=== PATIENT | female | born 1995 | race Caucasian/White ===

== ENCOUNTER 2018-01-18 03:01 | Inpatient (IN) | payer BC, OTHER ==
[~2018-01-18] VITALS: Ht 160 cm; Wt 63.5 kg
--- OUTSIDE RECORDS SUMMARY | 2018-01-18 03:10 | XMS REPORT ---
Author Author [facility] Medical Staff Organization [facility] Address [address] [place], [place] [address] Phone [phone] Summary purpose TRANSITION OF CARE AUTO GENERATION Chief Complaint and Reason for Visit No authorized Reason for Visit (Admitting Diagnosis) is available for this visit. Problem list No authorized problems tracked for continuity of care are available for this visit. Encounters No authorized problems tracked for encounter diagnoses are available for this visit. Medications No medications recorded for this patient visit Allergies, adverse reactions, alerts No allergy information is available for this patient. Immunizations No immunizations recorded for this patient visit Relevant diagnostic tests and/or laboratory data RESULTS Thyroid Testing [id number]:00 Result Normal Range Units TSH L 0.11 0.52-4.13 uIU/mL Free T4 1.15 0.78-1.34 ng/dl History of procedures No procedures recorded for this patient visit. Functional status No functional or cognitive status observations are available for this visit. Vital signs No authorized vital signs are available for this visit. Social history No Social History or smoking status observations were recorded for this visit. ( Unknown if ever smoked.) Treatment Plan No treatment plan text is available for this visit. Hospital discharge instructions No discharge instruction text is available for this visit.
--- OUTSIDE RECORDS SUMMARY | 2018-01-18 03:10 | XMS REPORT ---
Author Author [facility] Medical Staff Organization [facility] Address [address] [place], [place] [address] Phone [phone] Care Team Providers Care Sky Diver Name Role Phone TAMARA SPENCER, KATIE PP [phone] Summary purpose TRANSITION OF CARE AUTO GENERATION [...] this patient visit Allergies, adverse reactions, alerts Allergen Category Ingredient Status Reaction Severity Onset No known drug allergies No known drug allergies No known drug allergies Confirmed or Verified Immunizations No immunizations recorded for this patient visit Relevant diagnostic tests and/or laboratory data RESULTS Thyroid Testing [id number]:37:00 Result Normal Range Units TSH 3.70 0.52-4.13 uIU/mL Free T4 0.88 0.78-1.34 ng/dl History of procedures No procedures [...]
--- OUTSIDE RECORDS SUMMARY | 2018-01-18 03:10 | XMS REPORT ---
Author Author [facility] Organization [facility] Address [address] [place] [address] Phone [phone] Care Team Providers Care Escrow Agent Name Role Phone TAMARA SPENCER, KATIE PP [phone] Summary purpose TRANSITION OF CARE AUTO GENERATION Chief Complaint and Reason for Visit Admit Diagnosis 1 MALIGN NEOPL THYROID Problem list No authorized problems tracked for [...] tests and/or laboratory data RESULTS Thyroid Testing [id number]:37:00 Result Normal Range Units TSH 3.70 0.52-4.13 uIU/mL Free T4 0.88 0.78-1.34 ng/dl History of procedures Procedure Code Code Type Description Date Performed Performing Physician 36577 CPT-4 ASSAY OF FREE THYROXINE 10-23-2014 ALIS MONTIEL 38023 CPT-4 ASSAY THYROID STIM HORMONE 10-23-2014 ALIS MONTIEL Functional status No functional or cognitive status [...]
--- OUTSIDE RECORDS SUMMARY | 2018-01-18 03:11 | XMS REPORT | Clinical Summary ---
Author Author Admin, WILBERT Organization [employer] Address Unknown Phone Unavailable Allergies, Adverse Reactions, Alerts Allergy Name Reaction Description Start Date Severity Status Provider NKDA Critical No Longer Active Tamera Mustafa MD PhD NKDA Critical Inactive Nehal Elder Conditions or Problems Problem Name Problem Code Onset Date Status Entry Date Provider Comment Standard Description Annotate FAMILY HISTORY OF DEPRESSION V17.0 Active Sera Mcdowell MD Family history of psychiatric condition FAMILY HISTORY OF LUNG CANCER V16.1 Active Sera Mcdowell MD Family history of malignant neoplasm of trachea, bronchus, and lung CARDIAC ARRHYTHMIA, INTERMITTENT 427.9 Resolved Sera Mcdowell MD Cardiac dysrhythmia, unspecified DYSURIA 788.1 Inactive Sera Mcdowell MD Dysuria CONSTIPATION UNSP. 564.00 Resolved Sera Mcdowell MD Constipation, unspecified ACNE 706.1 Active Sera Mcdowell MD Other acne PHARYNGITIS ACUTE 462 Inactive Sera Mcdowell MD Acute pharyngitis FAMILY HISTORY OF ALCOHOLISM V61.41 Active Tamera Mustafa MD PhD Alcoholism in family FH BREAST CANCER V16.3 Active Tamera Mustafa MD PhD Family history of malignant neoplasm of breast FH DIABETES V18.0 Active Tamera Mustafa MD PhD Family history of diabetes mellitus MIGRAINE, COMMON W/O INTRACTABLE MIGRAINE 346.10 Active Tamera Mustafa MD PhD Migraine without aura, without mention of intractable migraine, without mention of status migrainosus ACNE 706.1 Active Tamera Mustafa MD PhD Other acne THYROMEGALY 240.9 Resolved Tamera Mustafa MD PhD Goiter, unspecified right HEALTH SCREENING V70.0 Active Tamera Mustafa MD PhD Routine general medical examination at a health care facility HYPOTHYROIDISM 244.9 Active Tamera Mustafa MD PhD Unspecified hypothyroidism SCABIES 133.0 Resolved Tor Gramajo MD Scabies PHARYNGITIS 462 Resolved Tamera Mustafa MD PhD Acute pharyngitis Tonsillitis, acute 463 Resolved Tamera Mustafa MD PhD Acute tonsillitis UTI 599.0 Resolved Tamera Mustafa MD PhD Urinary tract infection, site not specified Abdominal pain, generalized 789.07 Active Jr Morrow MD Abdominal pain, generalized CONTRACEPTIVE MANAGEMENT V25.09 Active Alli Frye MD Encounter for other general counseling and advice on contraceptive management Hematuria 599.70 Active Tatyana Lam Hematuria, unspecified ANXIETY 300.00 Active Alli Frye MD Anxiety state, unspecified Preventative health care V70.0 Active Alli Frye MD Routine general medical examination at a health care facility GERD 530.81 Active Alli Frye MD Esophageal reflux Insomnia 780.52 Active Alli Frye MD Insomnia, unspecified CARDIAC ARRHYTHMIA, INTERMITTENT ICD-427.9 Inactive Sera Mcdowell MD DYSURIA ICD-788.1 Inactive Sera Mcdowell MD CONSTIPATION UNSP. ICD-564.00 Inactive Sera Mcdowell MD PHARYNGITIS ACUTE ICD-462 Inactive Sera Mcdowell MD THYROMEGALY ICD-240.9 Inactive Tamera Mustafa MD PhD SCABIES ICD-133.0 Inactive Tor Gramajo MD 05/30 PHARYNGITIS ICD-462 Inactive Tamera Mustafa MD PhD Tonsillitis, acute ICD-463 Inactive Tamera Mustafa MD PhD UTI ICD-599.0 Inactive Tamera Mustafa MD PhD Medication List Medication Instructions Start Date Stop Date Generic Name NDC Status Provider Patient Instruction ZOLOFT 100 MG ORAL TABLET take 1 and 1/2 tabs po qday for mood and headaches. SERTRALINE HCL 87753441901 Active Alli Frye MD Active ALPRAZOLAM 0.5 MG ORAL TABLET take 1 tab po BID prn anxiety ALPRAZOLAM 72128583221 Active Alli Frye MD Active QUETIAPINE FUMARATE 25 MG ORAL TABLET take 1 tab po qhs for anxiety QUETIAPINE FUMARATE 30292886223 Active Alli Frye MD Active METOPROLOL TARTRATE 25 MG ORAL TABLET take 1 tab po daily METOPROLOL TARTRATE 77477195078 Active Alli Frye MD Active HYDROXYZINE HCL 50 MG ORAL TABLET 1 tab po BID as needed for anxiety HYDROXYZINE HCL 00253299304 No Longer Active Alli Frye MD Active BUSPIRONE HCL 10 MG ORAL TABLET 1 TAB PO PRN BUSPIRONE HCL 66242159687 No Longer Active Juliane Melendez LPN Active ALPRAZOLAM 0.5 MG ORAL TABLET take 1 tab po qday prn anxiety 2016 ALPRAZOLAM 49029522645 No Longer Active Tatyana Lam Active LORAZEPAM 0.5 MG ORAL TABLET take 1 tab po qday prn anxiety attacks LORAZEPAM 61407710043 No Longer Active Alli Frye MD Active RANITIDINE HCL 300 MG ORAL CAPSULE 1 tablet by mouth daily prn acid reflux RANITIDINE HCL 72106313650 Active Alli Frye MD Active AMITRIPTYLINE HCL 25 MG ORAL TABLET 1 tab by mouth daily at bedtime AMITRIPTYLINE HCL 95593113782 No Longer Active Alli Frye MD Active ZOLOFT 50 MG ORAL TABLET 1 tablet by mouth daily for mood and headache 07/10 SERTRALINE HCL 90277319563 No Longer Active Alli Frye MD Active AMITRIPTYLINE HCL 50 MG ORAL TABLET 1 po qhs for migraine AMITRIPTYLINE HCL 58016540509 No Longer Active Alli Frye MD Active LEVOTHYROXINE SODIUM 112 MCG ORAL TABLET 1 pill by mouth daily for thyroid LEVOTHYROXINE SODIUM 22992456016 Active Alli Frye MD Active AMITRIPTYLINE HCL 50 MG ORAL TABLET 1 pill by mouth nightly, for migraine prevention AMITRIPTYLINE HCL 41944870774 No Longer Active Alli Frye MD Active MAGNESIUM OXIDE 400 MG ORAL CAPSULE 1 po with migraine MAGNESIUM OXIDE 67408118964 No Longer Active Alli Frye MD Active AMITRIPTYLINE HCL 75 MG ORAL TABLET take 1 tab po qhs for migraines. AMITRIPTYLINE HCL 89613868408 No Longer Active Alli Frye MD Active MULTIVITAMIN GUMMIES ADULT ORAL TABLET CHEWABLE MULTIPLE VITAMINS-MINERALS 59199426180 Active Alli Frye MD Active TRANSDERM-SCOP (1.5 MG) 1 MG/3DAYS TRANSDERMAL PATCH 72 HOUR 1 patch every 3 days, as needed for motion sickness, start at least 4 hours hours prior to departure SCOPOLAMINE BASE 67921811411 No Longer Active Alli Frye MD Active LEVOTHYROXINE SODIUM 125 MCG ORAL TABLET 1 pill by mouth daily, for thyroid LEVOTHYROXINE SODIUM 11888667117 No Longer Active Alli Frye MD Active ZOFRAN ODT 4 MG ORAL TABLET DISINTEGRATING 1 pill dissolved by mouth every 4 hours if needed for nausea ONDANSETRON 06647456220 Active Tamera Mustafa MD PhD Active SUMATRIPTAN 20 MG/ACT NASAL SOLUTION 1 spray in one nostril at onset of migraine; may repeat in 2 hours if needed for continued migraine SUMATRIPTAN 31056799623 No Longer Active Tamera Mustafa MD PhD Active ZOFRAN ODT 4 MG ORAL TABLET DISINTEGRATING 1 po q6hr PRN Nausea ONDANSETRON 47022830256 No Longer Active Jr Morrow MD Active EXCEDRIN MIGRAINE 250-250-65 MG ORAL TABLET 1 tab po as needed [id number] 68280068090 Active Jr Morrow MD Active ZOMIG 5 MG ORAL TABLET Take 1 tablet by mouth daily as needed ZOLMITRIPTAN 05687750538 No Longer Active Jr Morrow MD Active BACTRIM DS 800-160 MG ORAL TABLET 1 tab by mouth twice daily 2013 TRIMETHOPRIM-SULFAMETHOXAZOLE 05457658174 No Longer Active Tamera Mustafa MD PhD Active ZITHROMAX Z-ADALGISA 250 MG ORAL TABLET 2 today, then 1 daily for 4 days AZITHROMYCIN 35860511312 No Longer Active Tor Gramajo MD Active MINOCYCLINE HCL 50 MG ORAL CAPSULE 1 pill by mouth daily for acne MINOCYCLINE HCL 94537818869 No Longer Active Tor Gramajo MD Active AXERT 12.5 MG ORAL TABLET 1 tablet by mouth at onset of migraine; may repeat x 1 if headache is still present in 2 hours ALMOTRIPTAN MALATE 41268548611 No Longer Active Tamera Mustafa MD PhD Active ELIMITE 5 % EXTERNAL CREAM Apply from head to toe including scalp and soles of feet. Wash off after 8 hours. PERMETHRIN 99940701122 No Longer Active Tamera Mustafa MD PhD Active AMOXICILLIN 500 MG ORAL TABLET 2 PO bid x 10 days AMOXICILLIN 99561272119 No Longer Active Tamera Mustafa MD PhD Active MAXALT 5 MG ORAL TABLET 1 pill by mouth at start of migraine; may repeat x 1 if no improvement in 2 hours RIZATRIPTAN BENZOATE 58827533437 No Longer Active Tamera Mustafa MD PhD Active BACTRIM DS 800-160 MG ORAL TABLET 1 tab by mouth twice daily 2012 TRIMETHOPRIM-SULFAMETHOXAZOLE 39537325375 No Longer Active Alli Frye MD Active TRI-SPRINTEC 0.18/0.215/0.25 MG-35 MCG ORAL TABLET 1 po qd as directed 06/28 NORGESTIM-ETH ESTRAD TRIPHASIC 50662602974 Active Alli Frye MD Active AXERT 6.25 MG ORAL TABLET 1 pill by mouth at start of migraine; may repeat x 1 in 1 hr if needed ALMOTRIPTAN MALATE 87782775767 No Longer Active Tamera Mustafa MD PhD Active GENERESS FE 0.8-25 MG-MCG ORAL TABLET CHEWABLE 1 daily NORETHIN-ETH ESTRADIOL-FE 46826590633 No Longer Active Tamera Mustafa MD PhD Active DOXYCYCLINE HYCLATE 50 MG ORAL CAPSULE 1 pill by mouth daily for acne DOXYCYCLINE HYCLATE 23679382979 No Longer Active Tamera Mustafa MD PhD Active AMOXICILLIN 875 MG ORAL TABLET 1 TWO TIMES A DAY AMOXICILLIN 75951951171 No Longer Active Sera Mcdowell MD Active AMOXICILLIN 875 MG ORAL TABLET 1 TWO TIMES A DAY AMOXICILLIN 875 MG ORAL TABLET 141005 AMOXICILLIN Inactive DOXYCYCLINE HYCLATE 50 MG ORAL CAPSULE 1 pill by mouth daily for acne DOXYCYCLINE HYCLATE 50 MG ORAL CAPSULE 1984962 DOXYCYCLINE HYCLATE Inactive GENERESS FE 0.8-25 MG-MCG ORAL TABLET CHEWABLE 1 daily GENERESS FE 0.8-25 MG-MCG ORAL TABLET CHEWABLE 4742360 NORETHIN-ETH ESTRADIOL-FE Inactive AXERT 6.25 MG ORAL TABLET 1 pill by mouth at start of migraine; may repeat x 1 in 1 hr if needed AXERT 6.25 MG ORAL TABLET ALMOTRIPTAN MALATE Inactive MAXALT 5 MG ORAL TABLET 1 pill by mouth at start of migraine; may repeat x 1 if no improvement in 2 hours MAXALT 5 MG ORAL TABLET 262490 RIZATRIPTAN BENZOATE Inactive AMOXICILLIN 500 MG ORAL TABLET 2 PO bid x 10 days AMOXICILLIN 500 MG ORAL TABLET 181977 AMOXICILLIN Inactive ELIMITE 5 % EXTERNAL CREAM Apply from head to toe including scalp and soles of feet. Wash off after 8 hours. ELIMITE 5 % EXTERNAL CREAM 615283 PERMETHRIN Inactive AXERT 12.5 MG ORAL TABLET 1 tablet by mouth at onset of migraine; may repeat x 1 if headache is still present in 2 hours AXERT 12.5 MG ORAL TABLET 707973 ALMOTRIPTAN MALATE Inactive MINOCYCLINE HCL 50 MG ORAL CAPSULE 1 pill by mouth daily for acne MINOCYCLINE HCL 50 MG ORAL CAPSULE 896211 MINOCYCLINE HCL Inactive ZOMIG 5 MG ORAL TABLET Take 1 tablet by mouth daily as needed ZOMIG 5 MG ORAL TABLET 715840 ZOLMITRIPTAN Inactive ZOFRAN ODT 4 MG ORAL TABLET DISINTEGRATING 1 po q6hr PRN Nausea ZOFRAN ODT 4 MG ORAL TABLET DISINTEGRATING 529838 ONDANSETRON Inactive SUMATRIPTAN 20 MG/ACT NASAL SOLUTION 1 spray in one nostril at onset of migraine; may repeat in 2 hours if needed for continued migraine SUMATRIPTAN 20 MG/ACT NASAL SOLUTION 404614 SUMATRIPTAN Inactive LEVOTHYROXINE SODIUM 125 MCG ORAL TABLET 1 pill by mouth daily, for thyroid LEVOTHYROXINE SODIUM 125 MCG ORAL TABLET 361012 LEVOTHYROXINE SODIUM Inactive TRANSDERM-SCOP (1.5 MG) 1 MG/3DAYS TRANSDERMAL PATCH 72 HOUR 1 patch every 3 days, as needed for motion sickness, start at least 4 hours hours prior to departure TRANSDERM-SCOP (1.5 MG) 1 MG/3DAYS TRANSDERMAL PATCH 72 HOUR SCOPOLAMINE BASE Inactive AMITRIPTYLINE HCL 75 MG ORAL TABLET take 1 tab po qhs for migraines. AMITRIPTYLINE HCL 75 MG ORAL TABLET 473096 AMITRIPTYLINE HCL Inactive MAGNESIUM OXIDE 400 MG ORAL CAPSULE 1 po with migraine MAGNESIUM OXIDE 400 MG ORAL CAPSULE 318988 MAGNESIUM OXIDE Inactive AMITRIPTYLINE HCL 50 MG ORAL TABLET 1 pill by mouth nightly, for migraine prevention AMITRIPTYLINE HCL 50 MG ORAL TABLET 297591 AMITRIPTYLINE HCL Inactive AMITRIPTYLINE HCL 50 MG ORAL TABLET 1 po qhs for migraine AMITRIPTYLINE HCL 50 MG ORAL TABLET 562284 AMITRIPTYLINE HCL Inactive ZOLOFT 50 MG ORAL TABLET 1 tablet by mouth daily for mood and headache 07/10 ZOLOFT 50 MG ORAL TABLET 136136 SERTRALINE HCL Inactive AMITRIPTYLINE HCL 25 MG ORAL TABLET 1 tab by mouth daily at bedtime AMITRIPTYLINE HCL 25 MG ORAL TABLET 542271 AMITRIPTYLINE HCL Inactive LORAZEPAM 0.5 MG ORAL TABLET take 1 tab po qday prn anxiety attacks LORAZEPAM 0.5 MG ORAL TABLET 780651 LORAZEPAM Inactive ALPRAZOLAM 0.5 MG ORAL TABLET take 1 tab po qday prn anxiety 2016 ALPRAZOLAM 0.5 MG ORAL TABLET 132021 ALPRAZOLAM Inactive BUSPIRONE HCL 10 MG ORAL TABLET 1 TAB PO PRN BUSPIRONE HCL 10 MG ORAL TABLET 892631 BUSPIRONE HCL Inactive HYDROXYZINE HCL 50 MG ORAL TABLET 1 tab po BID as needed for anxiety HYDROXYZINE HCL 50 MG ORAL TABLET 261197 HYDROXYZINE HCL Inactive BACTRIM DS 800-160 MG ORAL TABLET 1 tab by mouth twice daily 2012 BACTRIM DS 800-160 MG ORAL TABLET 627308 TRIMETHOPRIM- SULFAMETHOXAZOLE Inactive ZITHROMAX Z-ADALGISA 250 MG ORAL TABLET 2 today, then 1 daily for 4 days ZITHROMAX Z-ADALGISA 250 MG ORAL TABLET 202772 AZITHROMYCIN Inactive BACTRIM DS 800-160 MG ORAL TABLET 1 tab by mouth twice daily 2013 BACTRIM DS 800-160 MG ORAL TABLET 848578 TRIMETHOPRIM- SULFAMETHOXAZOLE Inactive Advance Directives Directive Description Start Date CONSENT: MEDICATION HISTORY CONSENT FOR MINOR CARE Immunizations Vaccine Administration Date Value Standard Description Adacel (Tetanus, reduced Diphtheria, and acellular Pertussis Immunization) Adacel [[id number]] tetanus toxoid, reduced diphtheria toxoid, and acellular pertussis vaccine, adsorbed chicken pox immunization #2 Varicella Vax varicella virus vaccine chicken pox immunization #1 Varicella Vax varicella virus vaccine DPT immunization #5 DTaP oral polio vaccine (OPV) #4 IPV poliovirus vaccine, unspecified formulation MMR (measles, mumps, rubella) virus immunization #2 MMR DPT immunization #4 DTaP oral polio vaccine (OPV) #3 OPV poliovirus vaccine, unspecified formulation MMR (measles, mumps, rubella) virus immunization #1 MMR Hemophilus influenza B immunization #3 Historical Haemophilus influenzae type b vaccine, conjugate unspecified formulation hepatitis B vaccine #3 Historical hepatitis B vaccine, unspecified formulation Hemophilus influenza B immunization #2 Historical Haemophilus influenzae type b vaccine, conjugate unspecified formulation oral polio vaccine (OPV) #2 OPV poliovirus vaccine, unspecified formulation DPT immunization #2 DTaP Hemophilus influenza B immunization #1 Historical Haemophilus influenzae type b vaccine, conjugate unspecified formulation oral polio vaccine (OPV) #1 OPV poliovirus vaccine, unspecified formulation DPT immunization #1 DTaP hepatitis B vaccine #2 given Historical hepatitis B vaccine, unspecified formulation hepatitis B vaccine #1 given Historical hepatitis B vaccine, unspecified formulation DPT immunization #3 DTaP Vital Signs Date Name Value Unit Range Description blood pressure, diastolic 58 mm[Hg] BP bonilla blood pressure, systolic 113 mm[Hg] BP sys height E&M 63.5 [in_us] Bdy height pulse rate E&M 83 /min Heart rate temperature E&M 98.9 [degF] Body temperature weight E&M 151.5 [lb_av] Weight Measured Encounters Code Encounter Date Provider Facility CPT-40561 Level 4 Est. Patient 15:50:37 SENIOR QA ANALYST Alli Frye MD [facility] CPT-93077 Level 4 Est. Patient 23:05:57 CDT Alli Frye MD [facility] CPT-17876 Level 4 Est. Patient 12:25:34 CDT Alli Frye MD [facility] CPT-89505 Level 4 Est. Patient 13:40:53 CDT Alli Frye MD [facility] CPT-13743 Level 4 Est. Patient 13:18:45 SENIOR QA ANALYST Alli Frye MD [facility] CPT-93807 Level 4 Est. Patient 11:32:52 SENIOR QA ANALYST Alli Frye MD [facility] CPT-37152 Level 4 Est. Patient 14:47:16 CDT Alli Frye MD [facility] CPT-61351 Level 3 Est. Patient 17:25:12 CDT Tamera Mustafa MD PhD [facility] CPT-48912 Level 3 Est. Patient 15:47:52 CDT Jr Morrow MD [facility] CPT-72627 Level 3 Est. Patient 17:07:09 SENIOR QA ANALYST Tor Gramajo MD [facility] CPT-40093 Level 3 Est. Patient 11:34:16 CDT Gerson EMANUEL [facility] CPT-61197 Level 3 Est. Patient 16:33:58 CDT Edyta Otto APRN [facility] CPT-63421 Level 3 Est. Patient 15:17:40 SENIOR QA ANALYST Sera Mcdowell MD [facility] CPT-51291 Level 3 Est. Patient 16:32:34 SENIOR QA ANALYST Sera Mcdowell MD [facility] Procedures Code Procedure Name Date Entry Date Standard Description CPT-16837 First Vx - Ix admin via ID IM or jet injects without counseling by physician 15:09:59 CDT CPT-83464 Menveo Intramuscular Solution Reconstituted 15:09:59 CDT CPT-99957 Meningococcal Conjugate Vacine (Menactra) 12:25:34 CDT CPT-91246 Abd compl w upright 16:06:21 CDT CPT-PV Prev. Care Visit 12:33:36 SENIOR QA ANALYST
--- OUTSIDE RECORDS SUMMARY | 2018-01-18 03:12 | XMS REPORT | Clinical Summary ---
Author Author Admin, WILBERT Organization [facility] Address Unknown Phone Unavailable Allergies, Adverse Reactions, [...] Generic Name NDC Status Provider Patient Instruction ALPRAZOLAM 0.5 MG ORAL TABLET take 1 tab po BID prn anxiety ALPRAZOLAM 05477909905 Active Alli Frye MD Active QUETIAPINE FUMARATE 25 MG ORAL TABLET take 1 tab po qhs for anxiety QUETIAPINE FUMARATE 03488522484 Active Alli Frye MD Active METOPROLOL TARTRATE 25 MG ORAL TABLET take 1 tab po daily METOPROLOL TARTRATE 41225786632 Active Alli Frye MD Active HYDROXYZINE HCL 50 MG ORAL TABLET 1 tab po BID as needed for anxiety HYDROXYZINE HCL 31178463174 No Longer Active Alli Frye MD Active ZOLOFT 100 MG ORAL TABLET take 2 tabs po qday for mood and headaches. SERTRALINE HCL 46993015304 Active Juliane Melendez LPN Active BUSPIRONE HCL 10 MG ORAL TABLET 1 TAB PO PRN BUSPIRONE HCL 04026739962 No Longer Active Juliane Melendez LPN Active ALPRAZOLAM 0.5 MG ORAL TABLET take 1 tab po qday prn anxiety 2016 ALPRAZOLAM 17104005573 No Longer Active Tatyana Lam Active LORAZEPAM 0.5 MG ORAL TABLET take 1 tab po qday prn anxiety attacks LORAZEPAM 95988972572 No Longer Active Alli Frye MD Active RANITIDINE HCL 300 MG ORAL CAPSULE 1 tablet by mouth daily prn acid reflux RANITIDINE HCL 47953562351 Active Alli Frye MD Active AMITRIPTYLINE HCL 25 MG ORAL TABLET 1 tab by mouth daily at bedtime AMITRIPTYLINE HCL 77324359460 No Longer Active Alli Frye MD Active ZOLOFT 50 MG ORAL TABLET 1 tablet by mouth daily for mood and headache 07/10 SERTRALINE HCL 06836096061 No Longer Active Alli Frye MD Active AMITRIPTYLINE HCL 50 MG ORAL TABLET 1 po qhs for migraine AMITRIPTYLINE HCL 56485326869 No Longer Active Alli Frye MD Active LEVOTHYROXINE SODIUM 112 MCG ORAL TABLET 1 pill by mouth daily for thyroid LEVOTHYROXINE SODIUM 07635122025 Active Alli Frye MD Active AMITRIPTYLINE HCL 50 MG ORAL TABLET 1 pill by mouth nightly, for migraine prevention AMITRIPTYLINE HCL 25489616720 No Longer Active Alli Frye MD Active MAGNESIUM OXIDE 400 MG ORAL CAPSULE 1 po with migraine MAGNESIUM OXIDE 18199250799 No Longer Active Alli Frye MD Active AMITRIPTYLINE HCL 75 MG ORAL TABLET take 1 tab po qhs for migraines. AMITRIPTYLINE HCL 15647645172 No Longer Active Alli Frye MD Active MULTIVITAMIN GUMMIES ADULT ORAL TABLET CHEWABLE MULTIPLE VITAMINS-MINERALS 48844141088 Active Alli Frye MD Active TRANSDERM-SCOP (1.5 MG) 1 MG/3DAYS TRANSDERMAL PATCH 72 HOUR 1 patch every 3 days, as needed for motion sickness, start at least 4 hours hours prior to departure SCOPOLAMINE BASE 62361714402 No Longer Active Alli Frye MD Active LEVOTHYROXINE SODIUM 125 MCG ORAL TABLET 1 pill by mouth daily, for thyroid LEVOTHYROXINE SODIUM 14873591457 No Longer Active Alli Frye MD Active ZOFRAN ODT 4 MG ORAL TABLET DISINTEGRATING 1 pill dissolved by mouth every 4 hours if needed for nausea ONDANSETRON 91379179312 Active Tamera Mustafa MD PhD Active SUMATRIPTAN 20 MG/ACT NASAL SOLUTION 1 spray in one nostril at onset of migraine; may repeat in 2 hours if needed for continued migraine SUMATRIPTAN 48269626515 No Longer Active Tamera Mustafa MD PhD Active ZOFRAN ODT 4 MG ORAL TABLET DISINTEGRATING 1 po q6hr PRN Nausea ONDANSETRON 69868673012 No Longer Active Jr Morrow MD Active EXCEDRIN MIGRAINE 250-250-65 MG ORAL TABLET 1 tab po as needed [id number] 47863257001 Active Jr Morrow MD Active ZOMIG 5 MG ORAL TABLET Take 1 tablet by mouth daily as needed ZOLMITRIPTAN 56576804018 No Longer Active Jr Morrow MD Active BACTRIM DS 800-160 MG ORAL TABLET 1 tab by mouth twice daily 2013 TRIMETHOPRIM-SULFAMETHOXAZOLE 00949760060 No Longer Active Tamera Mustafa MD PhD Active ZITHROMAX Z-ADALGISA 250 MG ORAL TABLET 2 today, then 1 daily for 4 days AZITHROMYCIN 23430764950 No Longer Active Tor Gramajo MD Active MINOCYCLINE HCL 50 MG ORAL CAPSULE 1 pill by mouth daily for acne MINOCYCLINE HCL 76808368660 No Longer Active Tor Gramajo MD Active AXERT 12.5 MG ORAL TABLET 1 tablet by mouth at onset of migraine; may repeat x 1 if headache is still present in 2 hours ALMOTRIPTAN MALATE 24321433827 No Longer Active Tamera Mustafa MD PhD Active ELIMITE 5 % EXTERNAL CREAM Apply from head to toe including scalp and soles of feet. Wash off after 8 hours. PERMETHRIN 12352863452 No Longer Active Tamera Mustafa MD PhD Active AMOXICILLIN 500 MG ORAL TABLET 2 PO bid x 10 days AMOXICILLIN 27504948983 No Longer Active Tamera Mustafa MD PhD Active MAXALT 5 MG ORAL TABLET 1 pill by mouth at start of migraine; may repeat x 1 if no improvement in 2 hours RIZATRIPTAN BENZOATE 16832950873 No Longer Active Tamera Mustafa MD PhD Active BACTRIM DS 800-160 MG ORAL TABLET 1 tab by mouth twice daily 2012 TRIMETHOPRIM-SULFAMETHOXAZOLE 90631907343 No Longer Active Alli Frye MD Active TRI-SPRINTEC 0.18/0.215/0.25 MG-35 MCG ORAL TABLET 1 po qd as directed 06/28 NORGESTIM-ETH ESTRAD TRIPHASIC 51465036889 Active Alli Frye MD Active AXERT 6.25 MG ORAL TABLET 1 pill by mouth at start of migraine; may repeat x 1 in 1 hr if needed ALMOTRIPTAN MALATE 07161561185 No Longer Active Tamera Mustafa MD PhD Active GENERESS FE 0.8-25 MG-MCG ORAL TABLET CHEWABLE 1 daily NORETHIN-ETH ESTRADIOL-FE 31294559176 No Longer Active Tamera Mustafa MD PhD Active DOXYCYCLINE HYCLATE 50 MG ORAL CAPSULE 1 pill by mouth daily for acne DOXYCYCLINE HYCLATE 99331868699 No Longer Active Tamera Mustafa MD PhD Active AMOXICILLIN 875 MG ORAL TABLET 1 TWO TIMES A DAY AMOXICILLIN 78547559889 No Longer Active Sera Mcdowell MD Active AMOXICILLIN 875 MG ORAL TABLET 1 TWO TIMES A DAY AMOXICILLIN 875 MG ORAL TABLET 814790 AMOXICILLIN Inactive DOXYCYCLINE HYCLATE 50 MG ORAL CAPSULE 1 pill by mouth daily for acne DOXYCYCLINE HYCLATE 50 MG ORAL CAPSULE 4306778 DOXYCYCLINE HYCLATE Inactive GENERESS FE 0.8-25 MG-MCG ORAL TABLET CHEWABLE 1 daily GENERESS FE 0.8-25 MG-MCG ORAL TABLET CHEWABLE 2521357 NORETHIN-ETH ESTRADIOL-FE Inactive AXERT 6.25 MG ORAL TABLET 1 pill by mouth at start of migraine; may repeat x 1 in 1 hr if needed AXERT 6.25 MG ORAL TABLET ALMOTRIPTAN MALATE Inactive MAXALT 5 MG ORAL TABLET 1 pill by mouth at start of migraine; may repeat x 1 if no improvement in 2 hours MAXALT 5 MG ORAL TABLET 100089 RIZATRIPTAN BENZOATE Inactive AMOXICILLIN 500 MG ORAL TABLET 2 PO bid x 10 days AMOXICILLIN 500 MG ORAL TABLET 159167 AMOXICILLIN Inactive ELIMITE 5 % EXTERNAL CREAM Apply from head to toe including scalp and soles of feet. Wash off after 8 hours. ELIMITE 5 % EXTERNAL CREAM 822606 PERMETHRIN Inactive AXERT 12.5 MG ORAL TABLET 1 tablet by mouth at onset of migraine; may repeat x 1 if headache is still present in 2 hours AXERT 12.5 MG ORAL TABLET 829064 ALMOTRIPTAN MALATE Inactive MINOCYCLINE HCL 50 MG ORAL CAPSULE 1 pill by mouth daily for acne MINOCYCLINE HCL 50 MG ORAL CAPSULE 067564 MINOCYCLINE HCL Inactive ZOMIG 5 MG ORAL TABLET Take 1 tablet by mouth daily as needed ZOMIG 5 MG ORAL TABLET 468844 ZOLMITRIPTAN Inactive ZOFRAN ODT 4 MG ORAL TABLET DISINTEGRATING 1 po q6hr PRN Nausea ZOFRAN ODT 4 MG ORAL TABLET DISINTEGRATING 390969 ONDANSETRON Inactive SUMATRIPTAN 20 MG/ACT NASAL SOLUTION 1 spray in one nostril at onset of migraine; may repeat in 2 hours if needed for continued migraine SUMATRIPTAN 20 MG/ACT NASAL SOLUTION 650747 SUMATRIPTAN Inactive LEVOTHYROXINE SODIUM 125 MCG ORAL TABLET 1 pill by mouth daily, for thyroid LEVOTHYROXINE SODIUM 125 MCG ORAL TABLET 642852 LEVOTHYROXINE SODIUM Inactive TRANSDERM-SCOP (1.5 MG) 1 MG/3DAYS TRANSDERMAL PATCH 72 HOUR 1 patch every 3 days, as needed for motion sickness, start at least 4 hours hours prior to departure TRANSDERM-SCOP (1.5 MG) 1 MG/3DAYS TRANSDERMAL PATCH 72 HOUR SCOPOLAMINE BASE Inactive AMITRIPTYLINE HCL 75 MG ORAL TABLET take 1 tab po qhs for migraines. AMITRIPTYLINE HCL 75 MG ORAL TABLET 098820 AMITRIPTYLINE HCL Inactive MAGNESIUM OXIDE 400 MG ORAL CAPSULE 1 po with migraine MAGNESIUM OXIDE 400 MG ORAL CAPSULE 988893 MAGNESIUM OXIDE Inactive AMITRIPTYLINE HCL 50 MG ORAL TABLET 1 pill by mouth nightly, for migraine prevention AMITRIPTYLINE HCL 50 MG ORAL TABLET 489133 AMITRIPTYLINE HCL Inactive AMITRIPTYLINE HCL 50 MG ORAL TABLET 1 po qhs for migraine AMITRIPTYLINE HCL 50 MG ORAL TABLET 154119 AMITRIPTYLINE HCL Inactive ZOLOFT 50 MG ORAL TABLET 1 tablet by mouth daily for mood and headache 07/10 ZOLOFT 50 MG ORAL TABLET 407946 SERTRALINE HCL Inactive AMITRIPTYLINE HCL 25 MG ORAL TABLET 1 tab by mouth daily at bedtime AMITRIPTYLINE HCL 25 MG ORAL TABLET 406886 AMITRIPTYLINE HCL Inactive LORAZEPAM 0.5 MG ORAL TABLET take 1 tab po qday prn anxiety attacks LORAZEPAM 0.5 MG ORAL TABLET 305477 LORAZEPAM Inactive ALPRAZOLAM 0.5 MG ORAL TABLET take 1 tab po qday prn anxiety 2016 ALPRAZOLAM 0.5 MG ORAL TABLET 895190 ALPRAZOLAM Inactive BUSPIRONE HCL 10 MG ORAL TABLET 1 TAB PO PRN BUSPIRONE HCL 10 MG ORAL TABLET 867261 BUSPIRONE HCL Inactive HYDROXYZINE HCL 50 MG ORAL TABLET 1 tab po BID as needed for anxiety HYDROXYZINE HCL 50 MG ORAL TABLET 453092 HYDROXYZINE HCL Inactive BACTRIM DS 800-160 MG ORAL TABLET 1 tab by mouth twice daily 2012 BACTRIM DS 800-160 MG ORAL TABLET 911153 TRIMETHOPRIM- SULFAMETHOXAZOLE Inactive ZITHROMAX Z-ADALGISA 250 MG ORAL TABLET 2 today, then 1 daily for 4 days ZITHROMAX Z-ADALGISA 250 MG ORAL TABLET 505573 AZITHROMYCIN Inactive BACTRIM DS 800-160 MG ORAL TABLET 1 tab by mouth twice daily 2013 BACTRIM DS 800-160 MG ORAL TABLET 999771 TRIMETHOPRIM- SULFAMETHOXAZOLE Inactive Advance Directives Directive Description Start Date CONSENT: MEDICATION HISTORY CONSENT FOR MINOR CARE Immunizations Vaccine Administration Date Value Standard Description Adacel (Tetanus, reduced Diphtheria, and acellular Pertussis Immunization) Adacel [[id number]] tetanus toxoid, reduced diphtheria toxoid, and acellular [...] (measles, mumps, rubella) virus immunization #1 MMR hepatitis B vaccine #3 Historical hepatitis B vaccine, unspecified formulation Hemophilus influenza B immunization #3 Historical Haemophilus influenzae type b vaccine, conjugate unspecified formulation DPT immunization #2 DTaP Hemophilus influenza B immunization #2 Historical Haemophilus influenzae type b vaccine, conjugate unspecified formulation oral polio vaccine (OPV) #2 OPV poliovirus vaccine, unspecified formulation DPT immunization #1 DTaP Hemophilus influenza B immunization #1 Historical Haemophilus influenzae type b vaccine, conjugate unspecified formulation oral polio vaccine (OPV) #1 OPV poliovirus vaccine, unspecified formulation hepatitis B vaccine #2 given Historical hepatitis [...] Measured Encounters Code Encounter Date Provider Facility CPT-62503 Level 4 Est. Patient 15:50:37 HEALTH CARE ATTORNEY Alli Frye MD [facility] CPT-21004 Level 4 Est. Patient 23:05:57 CDT Alli Frye MD [facility] CPT-31946 Level 4 Est. Patient 12:25:34 CDT Alli Frye MD [facility] CPT-44495 Level 4 Est. Patient 13:40:53 CDT Alli Frye MD [facility] CPT-29398 Level 4 Est. Patient 13:18:45 HEALTH CARE ATTORNEY Alli Frye MD [facility] CPT-82137 Level 4 Est. Patient 11:32:52 HEALTH CARE ATTORNEY Alli Frye MD [facility] CPT-12232 Level 4 Est. Patient 14:47:16 CDT Alli Frye MD [facility] CPT-71495 Level 3 Est. Patient 17:25:12 CDT Tamera Mustafa MD PhD [facility] CPT-96047 Level 3 Est. Patient 15:47:52 CDT Jr Morrow MD [facility] CPT-12023 Level 3 Est. Patient 17:07:09 HEALTH CARE ATTORNEY Tor Gramajo MD [facility] CPT-23280 Level 3 Est. Patient 11:34:16 CDT Gerson EMANUEL [facility] CPT-63407 Level 3 Est. Patient 16:33:58 CDT Edyta Otto APRN [facility] CPT-62292 Level 3 Est. Patient 15:17:40 HEALTH CARE ATTORNEY Sera Mcdowell MD [facility] CPT-68732 Level 3 Est. Patient 16:32:34 HEALTH CARE ATTORNEY Sera Mcdowell MD [facility] Procedures Code Procedure Name Date Entry Date Standard Description CPT-96446 First Vx - Ix admin via ID IM or jet injects without counseling by physician 15:09:59 CDT CPT-90625 Menveo Intramuscular Solution Reconstituted 15:09:59 CDT CPT-88113 Meningococcal Conjugate Vacine (Menactra) 12:25:34 CDT CPT-46709 Abd compl w upright 16:06:21 CDT CPT-PV Prev. Care Visit 12:33:36 HEALTH CARE ATTORNEY
--- OUTSIDE RECORDS SUMMARY | 2018-01-18 03:12 | XMS REPORT | Clinical Summary ---
Author Author Admin, WILBERT Organization [facility] Address Unknown Phone Unavailable Allergies, Adverse Reactions, [...] qday for mood and headaches. SERTRALINE HCL 01122711490 Active Alli Frye MD Active ALPRAZOLAM 0.5 MG ORAL TABLET take 1 tab po BID prn anxiety ALPRAZOLAM 56475227201 Active Alli Frye MD Active QUETIAPINE FUMARATE 25 MG ORAL TABLET take 1 tab po qhs for anxiety QUETIAPINE FUMARATE 25509233727 Active Alli Frye MD Active METOPROLOL TARTRATE 25 MG ORAL TABLET take 1 tab po daily METOPROLOL TARTRATE 67209258983 Active Alli Frye MD Active HYDROXYZINE HCL 50 MG ORAL TABLET 1 tab po BID as needed for anxiety HYDROXYZINE HCL 70608170203 No Longer Active Alli Frye MD Active BUSPIRONE HCL 10 MG ORAL TABLET 1 TAB PO PRN BUSPIRONE HCL 11151646175 No Longer Active Juliane Melendez LPN Active ALPRAZOLAM 0.5 MG ORAL TABLET take 1 tab po qday prn anxiety 2016 ALPRAZOLAM 44092924167 No Longer Active Tatyana Lam Active LORAZEPAM 0.5 MG ORAL TABLET take 1 tab po qday prn anxiety attacks LORAZEPAM 84299592332 No Longer Active Alli Frye MD Active RANITIDINE HCL 300 MG ORAL CAPSULE 1 tablet by mouth daily prn acid reflux RANITIDINE HCL 44833326833 Active Alli Frye MD Active AMITRIPTYLINE HCL 25 MG ORAL TABLET 1 tab by mouth daily at bedtime AMITRIPTYLINE HCL 22701086992 No Longer Active Alli Frye MD Active ZOLOFT 50 MG ORAL TABLET 1 tablet by mouth daily for mood and headache 07/10 SERTRALINE HCL 14361252918 No Longer Active Alli Frye MD Active AMITRIPTYLINE HCL 50 MG ORAL TABLET 1 po qhs for migraine AMITRIPTYLINE HCL 80763359886 No Longer Active Alli Frye MD Active LEVOTHYROXINE SODIUM 112 MCG ORAL TABLET 1 pill by mouth daily for thyroid LEVOTHYROXINE SODIUM 87673618684 Active Alli Frye MD Active AMITRIPTYLINE HCL 50 MG ORAL TABLET 1 pill by mouth nightly, for migraine prevention AMITRIPTYLINE HCL 09431531592 No Longer Active Alli Frye MD Active MAGNESIUM OXIDE 400 MG ORAL CAPSULE 1 po with migraine MAGNESIUM OXIDE 44526467422 No Longer Active Alli Frye MD Active AMITRIPTYLINE HCL 75 MG ORAL TABLET take 1 tab po qhs for migraines. AMITRIPTYLINE HCL 28114475222 No Longer Active Alli Frye MD Active MULTIVITAMIN GUMMIES ADULT ORAL TABLET CHEWABLE MULTIPLE VITAMINS-MINERALS 93372125740 Active Alli Frye MD Active TRANSDERM-SCOP (1.5 MG) 1 MG/3DAYS TRANSDERMAL PATCH 72 HOUR 1 patch every 3 days, as needed for motion sickness, start at least 4 hours hours prior to departure SCOPOLAMINE BASE 18337409378 No Longer Active Alli Frye MD Active LEVOTHYROXINE SODIUM 125 MCG ORAL TABLET 1 pill by mouth daily, for thyroid LEVOTHYROXINE SODIUM 64433120472 No Longer Active Alli Frye MD Active ZOFRAN ODT 4 MG ORAL TABLET DISINTEGRATING 1 pill dissolved by mouth every 4 hours if needed for nausea ONDANSETRON 62459140309 Active Tamera Mustafa MD PhD Active SUMATRIPTAN 20 MG/ACT NASAL SOLUTION 1 spray in one nostril at onset of migraine; may repeat in 2 hours if needed for continued migraine SUMATRIPTAN 41681290388 No Longer Active Tamera Mustafa MD PhD Active ZOFRAN ODT 4 MG ORAL TABLET DISINTEGRATING 1 po q6hr PRN Nausea ONDANSETRON 29374684122 No Longer Active Jr Morrow MD Active EXCEDRIN MIGRAINE 250-250-65 MG ORAL TABLET 1 tab po as needed [id number] 45088574900 Active Jr Morrow MD Active ZOMIG 5 MG ORAL TABLET Take 1 tablet by mouth daily as needed ZOLMITRIPTAN 57944362884 No Longer Active Jr Morrow MD Active BACTRIM DS 800-160 MG ORAL TABLET 1 tab by mouth twice daily 2013 TRIMETHOPRIM-SULFAMETHOXAZOLE 60627946844 No Longer Active Tamera Mustafa MD PhD Active ZITHROMAX Z-ADALGISA 250 MG ORAL TABLET 2 today, then 1 daily for 4 days AZITHROMYCIN 47631111395 No Longer Active Tor Gramajo MD Active MINOCYCLINE HCL 50 MG ORAL CAPSULE 1 pill by mouth daily for acne MINOCYCLINE HCL 16657235647 No Longer Active Tor Gramajo MD Active AXERT 12.5 MG ORAL TABLET 1 tablet by mouth at onset of migraine; may repeat x 1 if headache is still present in 2 hours ALMOTRIPTAN MALATE 24940053570 No Longer Active Tamera Mustafa MD PhD Active ELIMITE 5 % EXTERNAL CREAM Apply from head to toe including scalp and soles of feet. Wash off after 8 hours. PERMETHRIN 84838447753 No Longer Active Tamera Mustafa MD PhD Active AMOXICILLIN 500 MG ORAL TABLET 2 PO bid x 10 days AMOXICILLIN 99525523263 No Longer Active Tamera Mustafa MD PhD Active MAXALT 5 MG ORAL TABLET 1 pill by mouth at start of migraine; may repeat x 1 if no improvement in 2 hours RIZATRIPTAN BENZOATE 96303995167 No Longer Active Tamera Mustafa MD PhD Active BACTRIM DS 800-160 MG ORAL TABLET 1 tab by mouth twice daily 2012 TRIMETHOPRIM-SULFAMETHOXAZOLE 44786792709 No Longer Active Alli Frye MD Active TRI-SPRINTEC 0.18/0.215/0.25 MG-35 MCG ORAL TABLET 1 po qd as directed 06/28 NORGESTIM-ETH ESTRAD TRIPHASIC 91419835737 Active Alli Frye MD Active AXERT 6.25 MG ORAL TABLET 1 pill by mouth at start of migraine; may repeat x 1 in 1 hr if needed ALMOTRIPTAN MALATE 11630912723 No Longer Active Tamera Mustafa MD PhD Active GENERESS FE 0.8-25 MG-MCG ORAL TABLET CHEWABLE 1 daily NORETHIN-ETH ESTRADIOL-FE 31188481043 No Longer Active Tamera Mustafa MD PhD Active DOXYCYCLINE HYCLATE 50 MG ORAL CAPSULE 1 pill by mouth daily for acne DOXYCYCLINE HYCLATE 32369301331 No Longer Active Tamera Mustafa MD PhD Active AMOXICILLIN 875 MG ORAL TABLET 1 TWO TIMES A DAY AMOXICILLIN 98686053705 No Longer Active Sera Mcdowell MD Active AMOXICILLIN 875 MG ORAL TABLET 1 TWO TIMES A DAY AMOXICILLIN 875 MG ORAL TABLET 042127 AMOXICILLIN Inactive DOXYCYCLINE HYCLATE 50 MG ORAL CAPSULE 1 pill by mouth daily for acne DOXYCYCLINE HYCLATE 50 MG ORAL CAPSULE 8328524 DOXYCYCLINE HYCLATE Inactive GENERESS FE 0.8-25 MG-MCG ORAL TABLET CHEWABLE 1 daily GENERESS FE 0.8-25 MG-MCG ORAL TABLET CHEWABLE 8939207 NORETHIN-ETH ESTRADIOL-FE Inactive AXERT 6.25 MG ORAL TABLET 1 pill by mouth at start of migraine; may repeat x 1 in 1 hr if needed AXERT 6.25 MG ORAL TABLET ALMOTRIPTAN MALATE Inactive MAXALT 5 MG ORAL TABLET 1 pill by mouth at start of migraine; may repeat x 1 if no improvement in 2 hours MAXALT 5 MG ORAL TABLET 369919 RIZATRIPTAN BENZOATE Inactive AMOXICILLIN 500 MG ORAL TABLET 2 PO bid x 10 days AMOXICILLIN 500 MG ORAL TABLET 294259 AMOXICILLIN Inactive ELIMITE 5 % EXTERNAL CREAM Apply from head to toe including scalp and soles of feet. Wash off after 8 hours. ELIMITE 5 % EXTERNAL CREAM 668810 PERMETHRIN Inactive AXERT 12.5 MG ORAL TABLET 1 tablet by mouth at onset of migraine; may repeat x 1 if headache is still present in 2 hours AXERT 12.5 MG ORAL TABLET 201816 ALMOTRIPTAN MALATE Inactive MINOCYCLINE HCL 50 MG ORAL CAPSULE 1 pill by mouth daily for acne MINOCYCLINE HCL 50 MG ORAL CAPSULE 503420 MINOCYCLINE HCL Inactive ZOMIG 5 MG ORAL TABLET Take 1 tablet by mouth daily as needed ZOMIG 5 MG ORAL TABLET 653657 ZOLMITRIPTAN Inactive ZOFRAN ODT 4 MG ORAL TABLET DISINTEGRATING 1 po q6hr PRN Nausea ZOFRAN ODT 4 MG ORAL TABLET DISINTEGRATING 434319 ONDANSETRON Inactive SUMATRIPTAN 20 MG/ACT NASAL SOLUTION 1 spray in one nostril at onset of migraine; may repeat in 2 hours if needed for continued migraine SUMATRIPTAN 20 MG/ACT NASAL SOLUTION 638887 SUMATRIPTAN Inactive LEVOTHYROXINE SODIUM 125 MCG ORAL TABLET 1 pill by mouth daily, for thyroid LEVOTHYROXINE SODIUM 125 MCG ORAL TABLET 266421 LEVOTHYROXINE SODIUM Inactive TRANSDERM-SCOP (1.5 MG) 1 MG/3DAYS TRANSDERMAL PATCH 72 HOUR 1 patch every 3 days, as needed for motion sickness, start at least 4 hours hours prior to departure TRANSDERM-SCOP (1.5 MG) 1 MG/3DAYS TRANSDERMAL PATCH 72 HOUR SCOPOLAMINE BASE Inactive AMITRIPTYLINE HCL 75 MG ORAL TABLET take 1 tab po qhs for migraines. AMITRIPTYLINE HCL 75 MG ORAL TABLET 236811 AMITRIPTYLINE HCL Inactive MAGNESIUM OXIDE 400 MG ORAL CAPSULE 1 po with migraine MAGNESIUM OXIDE 400 MG ORAL CAPSULE 246854 MAGNESIUM OXIDE Inactive AMITRIPTYLINE HCL 50 MG ORAL TABLET 1 pill by mouth nightly, for migraine prevention AMITRIPTYLINE HCL 50 MG ORAL TABLET 420443 AMITRIPTYLINE HCL Inactive AMITRIPTYLINE HCL 50 MG ORAL TABLET 1 po qhs for migraine AMITRIPTYLINE HCL 50 MG ORAL TABLET 063687 AMITRIPTYLINE HCL Inactive ZOLOFT 50 MG ORAL TABLET 1 tablet by mouth daily for mood and headache 07/10 ZOLOFT 50 MG ORAL TABLET 528727 SERTRALINE HCL Inactive AMITRIPTYLINE HCL 25 MG ORAL TABLET 1 tab by mouth daily at bedtime AMITRIPTYLINE HCL 25 MG ORAL TABLET 626100 AMITRIPTYLINE HCL Inactive LORAZEPAM 0.5 MG ORAL TABLET take 1 tab po qday prn anxiety attacks LORAZEPAM 0.5 MG ORAL TABLET 658703 LORAZEPAM Inactive ALPRAZOLAM 0.5 MG ORAL TABLET take 1 tab po qday prn anxiety 2016 ALPRAZOLAM 0.5 MG ORAL TABLET 331649 ALPRAZOLAM Inactive BUSPIRONE HCL 10 MG ORAL TABLET 1 TAB PO PRN BUSPIRONE HCL 10 MG ORAL TABLET 190302 BUSPIRONE HCL Inactive HYDROXYZINE HCL 50 MG ORAL TABLET 1 tab po BID as needed for anxiety HYDROXYZINE HCL 50 MG ORAL TABLET 773293 HYDROXYZINE HCL Inactive BACTRIM DS 800-160 MG ORAL TABLET 1 tab by mouth twice daily 2012 BACTRIM DS 800-160 MG ORAL TABLET 017507 TRIMETHOPRIM- SULFAMETHOXAZOLE Inactive ZITHROMAX Z-ADALGISA 250 MG ORAL TABLET 2 today, then 1 daily for 4 days ZITHROMAX Z-ADALGISA 250 MG ORAL TABLET 793414 AZITHROMYCIN Inactive BACTRIM DS 800-160 MG ORAL TABLET 1 tab by mouth twice daily 2013 BACTRIM DS 800-160 MG ORAL TABLET 711038 TRIMETHOPRIM- SULFAMETHOXAZOLE Inactive Advance Directives Directive Description Start Date CONSENT: MEDICATION HISTORY CONSENT FOR MINOR CARE Immunizations Vaccine Administration Date Value Standard Description Adacel (Tetanus, reduced Diphtheria, and acellular Pertussis Immunization) Adacel [UWD668] tetanus toxoid, reduced diphtheria toxoid, and acellular [...] Measured Encounters Code Encounter Date Provider Facility CPT-52680 Level 4 Est. Patient 15:50:37 BUSINESS TECHNOLOGY PROFESSOR Alli Frye MD [facility] CPT-18062 Level 4 Est. Patient 23:05:57 CDT Alli Frye MD [facility] CPT-29528 Level 4 Est. Patient 12:25:34 CDT Alli Frye MD [facility]-64068 Level 4 Est. Patient 13:40:53 CDT Alli Frye MD [facility]-15293 Level 4 Est. Patient 13:18:45 BUSINESS TECHNOLOGY PROFESSOR Alli Frye MD [facility] CPT-33422 Level 4 Est. Patient 11:32:52 BUSINESS TECHNOLOGY PROFESSOR Alli Frye MD [facility] CPT-77689 Level 4 Est. Patient 14:47:16 CDT Alli Frye MD [facility] CPT-28045 Level 3 Est. Patient 17:25:12 CDT Tamera Mustafa MD [facility] CPT-55908 Level 3 Est. Patient 15:47:52 CDT Jr Morrow MD [facility] CPT-17443 Level 3 Est. Patient 17:07:09 BUSINESS TECHNOLOGY PROFESSOR Tor Gramajo MD [facility] CPT-06292 Level 3 Est. Patient 11:34:16 CDT Gerson EMANUEL [facility] CPT-11540 Level 3 Est. Patient 16:33:58 CDT Edyta tOto APRN [facility] CPT-04527 Level 3 Est. Patient 15:17:40 BUSINESS TECHNOLOGY PROFESSOR Sera Mcdowell MD [facility] CPT-13687 Level 3 Est. Patient 16:32:34 BUSINESS TECHNOLOGY PROFESSOR Sera Mcdowell MD [facility] Procedures Code Procedure Name Date Entry Date Standard Description CPT-69491 First Vx - Ix admin via ID IM or jet injects without counseling by physician 15:09:59 CDT CPT-97337 Menveo Intramuscular Solution Reconstituted 15:09:59 CDT CPT-46978 Meningococcal Conjugate Vacine (Menactra) 12:25:34 CDT CPT-16540 Abd compl w upright 16:06:21 CDT CPT-PV Prev. Care Visit 12:33:36 BUSINESS TECHNOLOGY PROFESSOR
--- OUTSIDE RECORDS SUMMARY | 2018-01-18 03:13 | XMS REPORT | Clinical Summary ---
Author Author Admin, WILBERT Organization [facility] Address Unknown Phone Unavailable Allergies, Adverse Reactions, [...] 780.52 Active Alli Frye MD Insomnia, unspecified DYSURIA ICD-788.1 Inactive Sera Mcdowell MD CONSTIPATION UNSP. ICD-564.00 Inactive Sera Mcdowell MD PHARYNGITIS ACUTE ICD-462 Inactive Sera Mcdowell MD CARDIAC ARRHYTHMIA, INTERMITTENT ICD-427.9 Inactive Sera Mcdowell MD PHARYNGITIS ICD-462 Inactive Tamera Mustafa MD PhD Tonsillitis, acute ICD-463 Inactive Tamera Mustafa MD PhD UTI ICD-599.0 Inactive Tamera Mustafa MD PhD THYROMEGALY ICD-240.9 Inactive Tamera Mustafa MD PhD SCABIES ICD-133.0 Inactive Tor Gramajo MD 05/30 Medication List Medication Instructions Start Date Stop Date Generic Name NDC Status Provider Patient Instruction ALPRAZOLAM 0.5 MG ORAL TABLET take 1 tab po BID prn anxiety ALPRAZOLAM 74519630869 Active Alli Frye MD Active QUETIAPINE FUMARATE 25 MG ORAL TABLET take 1 tab po qhs for anxiety QUETIAPINE FUMARATE 57633038327 Active Alli Frye MD Active METOPROLOL TARTRATE 25 MG ORAL TABLET take 1 tab po daily METOPROLOL TARTRATE 34255944022 Active Alli Frye MD Active HYDROXYZINE HCL 50 MG ORAL TABLET 1 tab po BID as needed for anxiety HYDROXYZINE HCL 59339029769 No Longer Active Alli Frye MD Active ZOLOFT 100 MG ORAL TABLET take 2 tabs po qday for mood and headaches. SERTRALINE HCL 54073219256 Active Juliane Melendez LPN Active BUSPIRONE HCL 10 MG ORAL TABLET 1 TAB PO PRN BUSPIRONE HCL 81742357892 No Longer Active Juliane Melendez LPN Active ALPRAZOLAM 0.5 MG ORAL TABLET take 1 tab po qday prn anxiety 2016 ALPRAZOLAM 44481155992 No Longer Active Tatyana Lam Active LORAZEPAM 0.5 MG ORAL TABLET take 1 tab po qday prn anxiety attacks LORAZEPAM 81744742084 No Longer Active Alli Frye MD Active RANITIDINE HCL 300 MG ORAL CAPSULE 1 tablet by mouth daily prn acid reflux RANITIDINE HCL 56140206630 Active Alli Frye MD Active AMITRIPTYLINE HCL 25 MG ORAL TABLET 1 tab by mouth daily at bedtime AMITRIPTYLINE HCL 46279646307 No Longer Active Alli Frye MD Active ZOLOFT 50 MG ORAL TABLET 1 tablet by mouth daily for mood and headache 07/10 SERTRALINE HCL 08113153658 No Longer Active Alli Frye MD Active AMITRIPTYLINE HCL 50 MG ORAL TABLET 1 po qhs for migraine AMITRIPTYLINE HCL 45217635138 No Longer Active Alli Frye MD Active LEVOTHYROXINE SODIUM 112 MCG ORAL TABLET 1 pill by mouth daily for thyroid LEVOTHYROXINE SODIUM 45471619191 Active Alli Frye MD Active AMITRIPTYLINE HCL 50 MG ORAL TABLET 1 pill by mouth nightly, for migraine prevention AMITRIPTYLINE HCL 38992431697 No Longer Active Alli Frye MD Active MAGNESIUM OXIDE 400 MG ORAL CAPSULE 1 po with migraine MAGNESIUM OXIDE 22793098074 No Longer Active Alli Frye MD Active AMITRIPTYLINE HCL 75 MG ORAL TABLET take 1 tab po qhs for migraines. AMITRIPTYLINE HCL 58130193076 No Longer Active Alli Frye MD Active MULTIVITAMIN GUMMIES ADULT ORAL TABLET CHEWABLE MULTIPLE VITAMINS-MINERALS 19557570581 Active Alli Frye MD Active TRANSDERM-SCOP (1.5 MG) 1 MG/3DAYS TRANSDERMAL PATCH 72 HOUR 1 patch every 3 days, as needed for motion sickness, start at least 4 hours hours prior to departure SCOPOLAMINE BASE 63584699986 No Longer Active Alli Frye MD Active LEVOTHYROXINE SODIUM 125 MCG ORAL TABLET 1 pill by mouth daily, for thyroid LEVOTHYROXINE SODIUM 82398459323 No Longer Active Alli Frye MD Active ZOFRAN ODT 4 MG ORAL TABLET DISINTEGRATING 1 pill dissolved by mouth every 4 hours if needed for nausea ONDANSETRON 80599267595 Active Tamera Mustafa MD PhD Active SUMATRIPTAN 20 MG/ACT NASAL SOLUTION 1 spray in one nostril at onset of migraine; may repeat in 2 hours if needed for continued migraine SUMATRIPTAN 90092649854 No Longer Active Tamera Mustafa MD PhD Active ZOFRAN ODT 4 MG ORAL TABLET DISINTEGRATING 1 po q6hr PRN Nausea ONDANSETRON 43886745482 No Longer Active Jr Morrow MD Active EXCEDRIN MIGRAINE 250-250-65 MG ORAL TABLET 1 tab po as needed [id number] 19331996042 Active Jr Morrow MD Active ZOMIG 5 MG ORAL TABLET Take 1 tablet by mouth daily as needed ZOLMITRIPTAN 10126847027 No Longer Active Jr Morrow MD Active BACTRIM DS 800-160 MG ORAL TABLET 1 tab by mouth twice daily 2013 TRIMETHOPRIM-SULFAMETHOXAZOLE 55024968500 No Longer Active Tamera Mustafa MD PhD Active ZITHROMAX Z-ADALGISA 250 MG ORAL TABLET 2 today, then 1 daily for 4 days AZITHROMYCIN 28076365334 No Longer Active Tor Gramajo MD Active MINOCYCLINE HCL 50 MG ORAL CAPSULE 1 pill by mouth daily for acne MINOCYCLINE HCL 65169548529 No Longer Active Tor Gramajo MD Active AXERT 12.5 MG ORAL TABLET 1 tablet by mouth at onset of migraine; may repeat x 1 if headache is still present in 2 hours ALMOTRIPTAN MALATE 27835000208 No Longer Active Tamera Mustafa MD PhD Active ELIMITE 5 % EXTERNAL CREAM Apply from head to toe including scalp and soles of feet. Wash off after 8 hours. PERMETHRIN 57991779644 No Longer Active Tamera Mustafa MD PhD Active AMOXICILLIN 500 MG ORAL TABLET 2 PO bid x 10 days AMOXICILLIN 96509407072 No Longer Active Tamera Mustafa MD PhD Active MAXALT 5 MG ORAL TABLET 1 pill by mouth at start of migraine; may repeat x 1 if no improvement in 2 hours RIZATRIPTAN BENZOATE 06811967554 No Longer Active Tamera Mustafa MD PhD Active BACTRIM DS 800-160 MG ORAL TABLET 1 tab by mouth twice daily 2012 TRIMETHOPRIM-SULFAMETHOXAZOLE 97594739111 No Longer Active Alli Frye MD Active TRI-SPRINTEC 0.18/0.215/0.25 MG-35 MCG ORAL TABLET 1 po qd as directed 06/28 NORGESTIM-ETH ESTRAD TRIPHASIC 31643440499 Active Alli Frye MD Active AXERT 6.25 MG ORAL TABLET 1 pill by mouth at start of migraine; may repeat x 1 in 1 hr if needed ALMOTRIPTAN MALATE 81605775950 No Longer Active Tamera Mustafa MD PhD Active GENERESS FE 0.8-25 MG-MCG ORAL TABLET CHEWABLE 1 daily NORETHIN-ETH ESTRADIOL-FE 93295070226 No Longer Active Tamera Mustafa MD PhD Active DOXYCYCLINE HYCLATE 50 MG ORAL CAPSULE 1 pill by mouth daily for acne DOXYCYCLINE HYCLATE 05466961830 No Longer Active Tamera Mustafa MD PhD Active AMOXICILLIN 875 MG ORAL TABLET 1 TWO TIMES A DAY AMOXICILLIN 46580837735 No Longer Active Sera Mcdowell MD Active AMOXICILLIN 875 MG ORAL TABLET 1 TWO TIMES A DAY AMOXICILLIN 875 MG ORAL TABLET 289149 AMOXICILLIN Inactive DOXYCYCLINE HYCLATE 50 MG ORAL CAPSULE 1 pill by mouth daily for acne DOXYCYCLINE HYCLATE 50 MG ORAL CAPSULE 3339668 DOXYCYCLINE HYCLATE Inactive GENERESS FE 0.8-25 MG-MCG ORAL TABLET CHEWABLE 1 daily GENERESS FE 0.8-25 MG-MCG ORAL TABLET CHEWABLE 5084613 NORETHIN-ETH ESTRADIOL-FE Inactive AXERT 6.25 MG ORAL TABLET 1 pill by mouth at start of migraine; may repeat x 1 in 1 hr if needed AXERT 6.25 MG ORAL TABLET ALMOTRIPTAN MALATE Inactive MAXALT 5 MG ORAL TABLET 1 pill by mouth at start of migraine; may repeat x 1 if no improvement in 2 hours MAXALT 5 MG ORAL TABLET 510027 RIZATRIPTAN BENZOATE Inactive AMOXICILLIN 500 MG ORAL TABLET 2 PO bid x 10 days AMOXICILLIN 500 MG ORAL TABLET 410630 AMOXICILLIN Inactive ELIMITE 5 % EXTERNAL CREAM Apply from head to toe including scalp and soles of feet. Wash off after 8 hours. ELIMITE 5 % EXTERNAL CREAM 162876 PERMETHRIN Inactive AXERT 12.5 MG ORAL TABLET 1 tablet by mouth at onset of migraine; may repeat x 1 if headache is still present in 2 hours AXERT 12.5 MG ORAL TABLET 820380 ALMOTRIPTAN MALATE Inactive MINOCYCLINE HCL 50 MG ORAL CAPSULE 1 pill by mouth daily for acne MINOCYCLINE HCL 50 MG ORAL CAPSULE 610956 MINOCYCLINE HCL Inactive ZOMIG 5 MG ORAL TABLET Take 1 tablet by mouth daily as needed ZOMIG 5 MG ORAL TABLET 008266 ZOLMITRIPTAN Inactive ZOFRAN ODT 4 MG ORAL TABLET DISINTEGRATING 1 po q6hr PRN Nausea ZOFRAN ODT 4 MG ORAL TABLET DISINTEGRATING 930571 ONDANSETRON Inactive SUMATRIPTAN 20 MG/ACT NASAL SOLUTION 1 spray in one nostril at onset of migraine; may repeat in 2 hours if needed for continued migraine SUMATRIPTAN 20 MG/ACT NASAL SOLUTION 128617 SUMATRIPTAN Inactive LEVOTHYROXINE SODIUM 125 MCG ORAL TABLET 1 pill by mouth daily, for thyroid LEVOTHYROXINE SODIUM 125 MCG ORAL TABLET 369317 LEVOTHYROXINE SODIUM Inactive TRANSDERM-SCOP (1.5 MG) 1 MG/3DAYS TRANSDERMAL PATCH 72 HOUR 1 patch every 3 days, as needed for motion sickness, start at least 4 hours hours prior to departure TRANSDERM-SCOP (1.5 MG) 1 MG/3DAYS TRANSDERMAL PATCH 72 HOUR SCOPOLAMINE BASE Inactive AMITRIPTYLINE HCL 75 MG ORAL TABLET take 1 tab po qhs for migraines. AMITRIPTYLINE HCL 75 MG ORAL TABLET 807395 AMITRIPTYLINE HCL Inactive MAGNESIUM OXIDE 400 MG ORAL CAPSULE 1 po with migraine MAGNESIUM OXIDE 400 MG ORAL CAPSULE 600464 MAGNESIUM OXIDE Inactive AMITRIPTYLINE HCL 50 MG ORAL TABLET 1 pill by mouth nightly, for migraine prevention AMITRIPTYLINE HCL 50 MG ORAL TABLET 089005 AMITRIPTYLINE HCL Inactive AMITRIPTYLINE HCL 50 MG ORAL TABLET 1 po qhs for migraine AMITRIPTYLINE HCL 50 MG ORAL TABLET 755257 AMITRIPTYLINE HCL Inactive ZOLOFT 50 MG ORAL TABLET 1 tablet by mouth daily for mood and headache 07/10 ZOLOFT 50 MG ORAL TABLET 121589 SERTRALINE HCL Inactive AMITRIPTYLINE HCL 25 MG ORAL TABLET 1 tab by mouth daily at bedtime AMITRIPTYLINE HCL 25 MG ORAL TABLET 335193 AMITRIPTYLINE HCL Inactive LORAZEPAM 0.5 MG ORAL TABLET take 1 tab po qday prn anxiety attacks LORAZEPAM 0.5 MG ORAL TABLET 663224 LORAZEPAM Inactive ALPRAZOLAM 0.5 MG ORAL TABLET take 1 tab po qday prn anxiety 2016 ALPRAZOLAM 0.5 MG ORAL TABLET 349772 ALPRAZOLAM Inactive BUSPIRONE HCL 10 MG ORAL TABLET 1 TAB PO PRN BUSPIRONE HCL 10 MG ORAL TABLET 845173 BUSPIRONE HCL Inactive HYDROXYZINE HCL 50 MG ORAL TABLET 1 tab po BID as needed for anxiety HYDROXYZINE HCL 50 MG ORAL TABLET 752579 HYDROXYZINE HCL Inactive BACTRIM DS 800-160 MG ORAL TABLET 1 tab by mouth twice daily 2012 BACTRIM DS 800-160 MG ORAL TABLET 853955 TRIMETHOPRIM- SULFAMETHOXAZOLE Inactive ZITHROMAX Z-ADALGISA 250 MG ORAL TABLET 2 today, then 1 daily for 4 days ZITHROMAX Z-ADALGISA 250 MG ORAL TABLET 471760 AZITHROMYCIN Inactive BACTRIM DS 800-160 MG ORAL TABLET 1 tab by mouth twice daily 2013 BACTRIM DS 800-160 MG ORAL TABLET 188956 TRIMETHOPRIM- SULFAMETHOXAZOLE Inactive Advance Directives Directive Description Start Date CONSENT: MEDICATION HISTORY CONSENT FOR MINOR CARE Immunizations Vaccine Administration Date Value Standard Description Adacel (Tetanus, reduced Diphtheria, and acellular Pertussis Immunization) Adacel [[id number]] tetanus toxoid, reduced diphtheria toxoid, and acellular [...] Measured Encounters Code Encounter Date Provider Facility CPT-74918 Level 4 Est. Patient 15:50:37 SHEARER OPERATOR Alli Frye MD [facility] CPT-39493 Level 4 Est. Patient 23:05:57 CDT Alli Frye MD [facility] CPT-59495 Level 4 Est. Patient 12:25:34 CDT Alli Frye MD [facility] CPT-54551 Level 4 Est. Patient 13:40:53 CDT Alli Frye MD [facility] CPT-58890 Level 4 Est. Patient 13:18:45 SHEARER OPERATOR Alli Frye MD [facility] CPT-52616 Level 4 Est. Patient 11:32:52 SHEARER OPERATOR Alli Frye MD [facility] CPT-17030 Level 4 Est. Patient 14:47:16 CDT Alli Frye MD [facility] CPT-83273 Level 3 Est. Patient 17:25:12 CDT Tamera Mustafa MD PhD [facility] CPT-34331 Level 3 Est. Patient 15:47:52 CDT Jr Morrow MD [facility] CPT-58696 Level 3 Est. Patient 17:07:09 SHEARER OPERATOR Tor Gramajo MD [facility] CPT-38053 Level 3 Est. Patient 11:34:16 CDT Gerson EMANUEL [facility] CPT-06075 Level 3 Est. Patient 16:33:58 CDT Edyta Otto APRN [facility] CPT-33736 Level 3 Est. Patient 15:17:40 SHEARER OPERATOR Sera Mcdowell MD [facility] CPT-72943 Level 3 Est. Patient 16:32:34 SHEARER OPERATOR Sera Mcdowell MD [facility] Procedures Code Procedure Name Date Entry Date Standard Description CPT-19213 First Vx - Ix admin via ID IM or jet injects without counseling by physician 15:09:59 CDT CPT-65543 Menveo Intramuscular Solution Reconstituted 15:09:59 CDT CPT-17289 Meningococcal Conjugate Vacine (Menactra) 12:25:34 CDT CPT-88170 Abd compl w upright 16:06:21 CDT CPT-PV Prev. Care Visit 12:33:36 SHEARER OPERATOR
--- OUTSIDE RECORDS SUMMARY | 2018-01-18 03:14 | XMS REPORT | Clinical Summary ---
Author Author Admin, WILBERT Organization [facility] Address Unknown Phone Unavailable Allergies, Adverse Reactions, [...] 530.81 Active Alli Frye MD Esophageal reflux CARDIAC ARRHYTHMIA, INTERMITTENT ICD-427.9 Inactive Sera Mcdowell [...] Status Provider Patient Instruction ALPRAZOLAM 0.5 MG TAB take 1 tab po qday prn anxiety ALPRAZOLAM 59207857944 No Longer Active Tatyana Lam Active BUSPIRONE HCL 10 MG ORAL TABLET 1 TAB PO PRN BUSPIRONE HCL 68715567700 Active Tatyana Lam Active LORAZEPAM 0.5 MG TAB take 1 tab po qday prn anxiety attacks 11/04 LORAZEPAM 94562313308 No Longer Active Alli Frye MD Active RANITIDINE HCL 300 MG CAPS 1 tablet by mouth daily prn acid reflux RANITIDINE HCL 92989237193 Active Alli Frye MD Active METOPROLOL TARTRATE 25 MG ORAL TABS take 1 tab po BID METOPROLOL TARTRATE 96729736966 Active Alli Frye MD Active AMITRIPTYLINE HCL 25 MG TAB 1 tab by mouth daily at bedtime 11/04 AMITRIPTYLINE HCL 26719057269 No Longer Active Alli Frye MD Active ZOLOFT 50 MG TAB 1 tablet by mouth daily for mood and headache SERTRALINE HCL 18240825571 No Longer Active Alli Frye MD Active AMITRIPTYLINE HCL 50 MG TAB 1 po qhs for migraine AMITRIPTYLINE HCL 83540347388 No Longer Active Alli Frye MD Active ZOLOFT 100 MG TAB take 1 tab po qday for mood and headaches. SERTRALINE HCL 84304108395 Active Tatyana Lam Active LEVOTHYROXINE SODIUM 112 MCG TABS 1 pill by mouth daily for thyroid LEVOTHYROXINE SODIUM 02695053911 Active Alli Frye MD Active AMITRIPTYLINE HCL 50 MG ORAL TABS 1 pill by mouth nightly, for migraine prevention AMITRIPTYLINE HCL 95597867809 No Longer Active Alli Frye MD Active MAGNESIUM OXIDE 400 MG CAPS 1 po with migraine MAGNESIUM OXIDE 75142322231 No Longer Active Alli Frye MD Active AMITRIPTYLINE HCL 75 MG TAB take 1 tab po qhs for migraines. 2016 AMITRIPTYLINE HCL 47919895821 No Longer Active Alli Frye MD Active MULTIVITAMIN GUMMIES ADULT CHEW MULTIPLE VITAMINS-MINERALS 65564946108 Active Alli Frye MD Active TRANSDERM-SCOP 1.5 MG TRANS PT72 1 patch every 3 days, as needed for motion sickness, start at least 4 hours hours prior to departure SCOPOLAMINE BASE 21769356419 No Longer Active Alli Frye MD Active LEVOTHYROXINE SODIUM 125 MCG ORAL TABS 1 pill by mouth daily, for thyroid LEVOTHYROXINE SODIUM 05089331817 No Longer Active Alli Frye MD Active ZOFRAN ODT 4 MG TBDP 1 pill dissolved by mouth every 4 hours if needed for nausea ONDANSETRON 71124833197 Active Tamera Mustafa MD PhD Active SUMATRIPTAN 20 MG/ACT SOLN 1 spray in one nostril at onset of migraine; may repeat in 2 hours if needed for continued migraine SUMATRIPTAN 46150309010 No Longer Active Tamera Mustafa MD PhD Active ZOFRAN ODT 4 MG TBDP 1 po q6hr PRN Nausea ONDANSETRON 17231296256 No Longer Active Jr Morrow MD Active EXCEDRIN MIGRAINE 250-250-65 MG TABS 1 tab po as needed [id number] 13114429245 Active Jr Morrow MD Active ZOMIG 5 MG TABS Take 1 tablet by mouth daily as needed ZOLMITRIPTAN 90271411062 No Longer Active Jr Morrow MD Active BACTRIM DS 800-160 MG TAB 1 tab by mouth twice daily TRIMETHOPRIM-SULFAMETHOXAZOLE 97897334288 No Longer Active Tamera Mustafa MD PhD Active ZITHROMAX Z-ADALGISA 250 MG TABS 2 today, then 1 daily for 4 days 2013 AZITHROMYCIN 21612426080 No Longer Active Tor Gramajo MD Active MINOCYCLINE HCL 50 MG CAP 1 pill by mouth daily for acne MINOCYCLINE HCL 75004763031 No Longer Active Tor Gramajo MD Active AXERT 12.5 MG TABS 1 tablet by mouth at onset of migraine; may repeat x 1 if headache is still present in 2 hours ALMOTRIPTAN MALATE 34385915781 No Longer Active Tamera Mustafa MD PhD Active ELIMITE 5 % CREA Apply from head to toe including scalp and soles of feet. Wash off after 8 hours. PERMETHRIN 13920133338 No Longer Active Tamera Mustafa MD PhD Active AMOXICILLIN 500 MG TABS 2 PO bid x 10 days AMOXICILLIN 35387764273 No Longer Active Tamera Mustafa MD PhD Active MAXALT 5 MG TABS 1 pill by mouth at start of migraine; may repeat x 1 if no improvement in 2 hours RIZATRIPTAN BENZOATE 10750358959 No Longer Active Tamera Mustafa MD PhD Active BACTRIM DS 800-160 MG TAB 1 tab by mouth twice daily TRIMETHOPRIM-SULFAMETHOXAZOLE 60213799544 No Longer Active Alli Frye MD Active TRI-SPRINTEC 0.18/0.215/0.25 MG-35 MCG TABS 1 po qd as directed NORGESTIM-ETH ESTRAD TRIPHASIC 61710652087 Active Alli Frye MD Active AXERT 6.25 MG TABS 1 pill by mouth at start of migraine; may repeat x 1 in 1 hr if needed ALMOTRIPTAN MALATE 18257642696 No Longer Active Tamera Mustafa MD PhD Active GENERESS FE 0.8-25 MG-MCG CHEW 1 daily NORETHIN-ETH ESTRADIOL-FE 20593738125 No Longer Active Tamera Mustafa MD PhD Active DOXYCYCLINE HYCLATE 50 MG CAP 1 pill by mouth daily for acne 2012 DOXYCYCLINE HYCLATE 47734819576 No Longer Active Tamera Mustafa MD PhD Active AMOXICILLIN 875 MG TABS 1 TWO TIMES A DAY AMOXICILLIN 56066727261 No Longer Active Sera Mcdowell MD Active AMOXICILLIN 875 MG TABS 1 TWO TIMES A DAY AMOXICILLIN 875 MG TABS 333424 AMOXICILLIN Inactive DOXYCYCLINE HYCLATE 50 MG CAP 1 pill by mouth daily for acne 2012 DOXYCYCLINE HYCLATE 50 MG CAP 8779745 DOXYCYCLINE HYCLATE Inactive GENERESS FE 0.8-25 MG-MCG CHEW 1 daily GENERESS FE 0.8-25 MG-MCG CHEW 0997068 NORETHIN-ETH ESTRADIOL-FE Inactive AXERT 6.25 MG TABS 1 pill by mouth at start of migraine; may repeat x 1 in 1 hr if needed AXERT 6.25 MG TABS 968484 ALMOTRIPTAN MALATE Inactive MAXALT 5 MG TABS 1 pill by mouth at start of migraine; may repeat x 1 if no improvement in 2 hours MAXALT 5 MG TABS 067311 RIZATRIPTAN BENZOATE Inactive AMOXICILLIN 500 MG TABS 2 PO bid x 10 days AMOXICILLIN 500 MG TABS 304826 AMOXICILLIN Inactive ELIMITE 5 % CREA Apply from head to toe including scalp and soles of feet. Wash off after 8 hours. ELIMITE 5 % CREA 127364 PERMETHRIN Inactive AXERT 12.5 MG TABS 1 tablet by mouth at onset of migraine; may repeat x 1 if headache is still present in 2 hours AXERT 12.5 MG TABS 835610 ALMOTRIPTAN MALATE Inactive MINOCYCLINE HCL 50 MG CAP 1 pill by mouth daily for acne MINOCYCLINE HCL 50 MG CAP 688404 MINOCYCLINE HCL Inactive ZOMIG 5 MG TABS Take 1 tablet by mouth daily as needed ZOMIG 5 MG TABS 849879 ZOLMITRIPTAN Inactive ZOFRAN ODT 4 MG TBDP 1 po q6hr PRN Nausea ZOFRAN ODT 4 MG TBDP 539329 ONDANSETRON Inactive SUMATRIPTAN 20 MG/ACT SOLN 1 spray in one nostril at onset of migraine; may repeat in 2 hours if needed for continued migraine SUMATRIPTAN 20 MG/ACT SOLN 881754 SUMATRIPTAN Inactive LEVOTHYROXINE SODIUM 125 MCG ORAL TABS 1 pill by mouth daily, for thyroid LEVOTHYROXINE SODIUM 125 MCG ORAL TABS 382886 LEVOTHYROXINE SODIUM Inactive TRANSDERM-SCOP 1.5 MG TRANS PT72 1 patch every 3 days, as needed for motion sickness, start at least 4 hours hours prior to departure TRANSDERM-SCOP 1.5 MG TRANS PT72 SCOPOLAMINE BASE Inactive AMITRIPTYLINE HCL 75 MG TAB take 1 tab po qhs for migraines. 2016 AMITRIPTYLINE HCL 75 MG TAB 469853 AMITRIPTYLINE HCL Inactive MAGNESIUM OXIDE 400 MG CAPS 1 po with migraine MAGNESIUM OXIDE 400 MG CAPS 399824 MAGNESIUM OXIDE Inactive AMITRIPTYLINE HCL 50 MG ORAL TABS 1 pill by mouth nightly, for migraine prevention AMITRIPTYLINE HCL 50 MG ORAL TABS 665817 AMITRIPTYLINE HCL Inactive AMITRIPTYLINE HCL 50 MG TAB 1 po qhs for migraine AMITRIPTYLINE HCL 50 MG TAB 834796 AMITRIPTYLINE HCL Inactive ZOLOFT 50 MG TAB 1 tablet by mouth daily for mood and headache ZOLOFT 50 MG TAB 512464 SERTRALINE HCL Inactive AMITRIPTYLINE HCL 25 MG TAB 1 tab by mouth daily at bedtime 11/04 AMITRIPTYLINE HCL 25 MG TAB 259619 AMITRIPTYLINE HCL Inactive LORAZEPAM 0.5 MG TAB take 1 tab po qday prn anxiety attacks 11/04 LORAZEPAM 0.5 MG TAB 046067 LORAZEPAM Inactive ALPRAZOLAM 0.5 MG TAB take 1 tab po qday prn anxiety ALPRAZOLAM 0.5 MG TAB 344443 ALPRAZOLAM Inactive BACTRIM DS 800-160 MG TAB 1 tab by mouth twice daily BACTRIM DS 800-160 MG TAB 009421 TRIMETHOPRIM-SULFAMETHOXAZOLE Inactive ZITHROMAX Z-ADALGISA 250 MG TABS 2 today, then 1 daily for 4 days 2013 ZITHROMAX Z-ADALGISA 250 MG TABS 586987 AZITHROMYCIN Inactive BACTRIM DS 800-160 MG TAB 1 tab by mouth twice daily BACTRIM DS 800-160 MG TAB 19820713 TRIMETHOPRIM-SULFAMETHOXAZOLE Inactive Advance Directives Directive Description Start Date CONSENT: MEDICATION HISTORY CONSENT FOR MINOR CARE Immunizations Vaccine Administration Date Value Standard Description Adacel (Tetanus, reduced Diphtheria, and acellular Pertussis Immunization) Adacel [[id number]] tetanus toxoid, reduced diphtheria toxoid, and acellular [...] Value Unit Range Description blood pressure, diastolic 68 mm[Hg] BP bonilla blood pressure, systolic 114 mm[Hg] BP sys height E&M 63.5 [in_us] Bdy height pulse rate E&M 87 /min Heart rate temperature E&M 97.8 [degF] Body temperature weight E&M 136 [lb_av] Weight Measured blood pressure, diastolic 87 mm[Hg] BP bonilla blood pressure, systolic 127 mm[Hg] BP sys height E&M 63.5 [in_us] Bdy height pulse rate E&M 104 /min Heart rate temperature E&M 98.2 [degF] Body temperature weight E&M 144.31 [lb_av] Weight Measured blood pressure, diastolic 80 mm[Hg] BP bonilla blood pressure, systolic 136 mm[Hg] BP sys height E&M 63.5 [in_us] Bdy height pulse rate E&M 107 /min Heart rate temperature E&M 98.2 [degF] Body temperature weight E&M 149 [lb_av] Weight Measured Diagnostic Results Date Name Value Unit Range Description Lab Report: Free Thyroxine (L), Thyroid Stimulating Hormone (L) - Chemistry thyroxine, serum, free 1.42 ng/dL 0.78-1.34 TSH 1.28 m[iU]/mL 0.36-3.74 Encounters Code Encounter Date Provider Facility CPT-77118 Level 4 Est. Patient 23:05:57 CDT Alli Frye MD [facility]-18363 Level 4 Est. Patient 12:25:34 CDT Alli Frye MD [facility]-79198 Level 4 Est. Patient 13:40:53 CDT Alli Frye MD [facility] CPT-23538 Level 4 Est. Patient 13:18:45 RIP SAW OPERATOR Alli Frye MD [facility] CPT-94102 Level 4 Est. Patient 11:32:52 RIP SAW OPERATOR Alli Frye MD [facility] CPT-67730 Level 4 Est. Patient 14:47:16 CDT Alli Frye MD [facility] CPT-72141 Level 3 Est. Patient 17:25:12 CDT Tamera Mustafa MD PhD [facility] CPT-74553 Level 3 Est. Patient 15:47:52 CDT Jr Morrow MD [facility] CPT-68180 Level 3 Est. Patient 17:07:09 RIP SAW OPERATOR Tor Gramajo MD [facility] CPT-15614 Level 3 Est. Patient 11:34:16 CDT Gerson EMANUEL [facility] CPT-26887 Level 3 Est. Patient 16:33:58 CDT Edyta Otto ADAMS [facility] CPT-21201 Level 3 Est. Patient 15:17:40 RIP SAW OPERATOR Sera Mcdowell MD [facility] CPT-29635 Level 3 Est. Patient 16:32:34 RIP SAW OPERATOR Sera Mcdowell MD [facility] Procedures Code Procedure Name Date Entry Date Standard Description CPT-57225 First Vx - Ix admin via ID IM or jet injects without counseling by physician 15:09:59 CDT CPT-25380 Menveo Intramuscular Solution Reconstituted 15:09:59 CDT CPT-02611 Meningococcal Conjugate Vacine (Menactra) 12:25:34 CDT CPT-38602 Abd compl w upright 16:06:21 CDT CPT-PV Prev. Care Visit 12:33:36 RIP SAW OPERATOR
--- OUTSIDE RECORDS SUMMARY | 2018-01-18 03:14 | XMS REPORT | Clinical Summary ---
Author Author Admin, WILBERT Organization [employer] Address Unknown Phone Unavailable Allergies, Adverse Reactions, [...] 530.81 Active Alli Frye MD Esophageal reflux DYSURIA ICD-788.1 Inactive Sera Mcdowell MD CONSTIPATION [...] Instructions Start Date Stop Date Generic Name ND Status Provider Patient Instruction ALPRAZOLAM 0.5 MG TAB take 1 tab po qday prn anxiety ALPRAZOLAM 48006323910 Active Alli Frye MD Active LORAZEPAM 0.5 MG TAB take 1 tab po qday prn anxiety attacks 11/04 LORAZEPAM 16891730934 No Longer Active Alli Frye MD Active RANITIDINE HCL 300 MG CAPS 1 tablet by mouth daily prn acid reflux RANITIDINE HCL 45737064931 Active Alli Frye MD Active METOPROLOL TARTRATE 25 MG ORAL TABS take 1 tab po BID METOPROLOL TARTRATE 14824617805 Active Alli Frye MD Active AMITRIPTYLINE HCL 25 MG TAB 1 tab by mouth daily at bedtime 11/04 AMITRIPTYLINE HCL 19741693667 No Longer Active Alli Frye MD Active ZOLOFT 50 MG TAB 1 tablet by mouth daily for mood and headache SERTRALINE HCL 68074257475 No Longer Active Alli Frye MD Active AMITRIPTYLINE HCL 50 MG TAB 1 po qhs for migraine AMITRIPTYLINE HCL 17085143099 No Longer Active Alli Frye MD Active ZOLOFT 100 MG TAB take 1 tab po qday for mood and headaches. SERTRALINE HCL 74798412825 Active Alli Frye MD Active LEVOTHYROXINE SODIUM 112 MCG TABS 1 pill by mouth daily for thyroid LEVOTHYROXINE SODIUM 33060706123 Active Alli Frye MD Active AMITRIPTYLINE HCL 50 MG ORAL TABS 1 pill by mouth nightly, for migraine prevention AMITRIPTYLINE HCL 21745660444 No Longer Active Alli Frye MD Active MAGNESIUM OXIDE 400 MG CAPS 1 po with migraine MAGNESIUM OXIDE 88357514505 No Longer Active Alli Frye MD Active AMITRIPTYLINE HCL 75 MG TAB take 1 tab po qhs for migraines. 2016 AMITRIPTYLINE HCL 64111719048 No Longer Active Alli Frye MD Active MULTIVITAMIN GUMMIES ADULT CHEW MULTIPLE VITAMINS-MINERALS 79530706446 Active Alli Frye MD Active TRANSDERM-SCOP 1.5 MG TRANS PT72 1 patch every 3 days, as needed for motion sickness, start at least 4 hours hours prior to departure SCOPOLAMINE BASE 84992638857 No Longer Active Alli Frye MD Active LEVOTHYROXINE SODIUM 125 MCG ORAL TABS 1 pill by mouth daily, for thyroid LEVOTHYROXINE SODIUM 62413181284 No Longer Active Alli Frye MD Active ZOFRAN ODT 4 MG TBDP 1 pill dissolved by mouth every 4 hours if needed for nausea ONDANSETRON 46094470651 Active Tamera Mustafa MD PhD Active SUMATRIPTAN 20 MG/ACT SOLN 1 spray in one nostril at onset of migraine; may repeat in 2 hours if needed for continued migraine SUMATRIPTAN 27374474038 No Longer Active Tamera Mustafa MD PhD Active ZOFRAN ODT 4 MG TBDP 1 po q6hr PRN Nausea ONDANSETRON 29056033877 No Longer Active Jr Morrow MD Active EXCEDRIN MIGRAINE 250-250-65 MG TABS 1 tab po as needed [id number] 38842766861 Active Jr Morrow MD Active ZOMIG 5 MG TABS Take 1 tablet by mouth daily as needed ZOLMITRIPTAN 46518121263 No Longer Active Jr Morrow MD Active BACTRIM DS 800-160 MG TAB 1 tab by mouth twice daily TRIMETHOPRIM-SULFAMETHOXAZOLE 56791132085 No Longer Active Tamera Mustafa MD PhD Active ZITHROMAX Z-ADALGISA 250 MG TABS 2 today, then 1 daily for 4 days 2013 AZITHROMYCIN 95332759230 No Longer Active Tor Gramajo MD Active MINOCYCLINE HCL 50 MG CAP 1 pill by mouth daily for acne MINOCYCLINE HCL 40008477871 No Longer Active Tor Gramajo MD Active AXERT 12.5 MG TABS 1 tablet by mouth at onset of migraine; may repeat x 1 if headache is still present in 2 hours ALMOTRIPTAN MALATE 57978869724 No Longer Active Tamera Mustafa MD PhD Active ELIMITE 5 % CREA Apply from head to toe including scalp and soles of feet. Wash off after 8 hours. PERMETHRIN 89638320336 No Longer Active Tamera Mustafa MD PhD Active AMOXICILLIN 500 MG TABS 2 PO bid x 10 days AMOXICILLIN 11095974279 No Longer Active Tamera Mustafa MD PhD Active MAXALT 5 MG TABS 1 pill by mouth at start of migraine; may repeat x 1 if no improvement in 2 hours RIZATRIPTAN BENZOATE 61005385459 No Longer Active Tamera Mustafa MD PhD Active BACTRIM DS 800-160 MG TAB 1 tab by mouth twice daily TRIMETHOPRIM-SULFAMETHOXAZOLE 43301424297 No Longer Active Alli Frye MD Active TRI-SPRINTEC 0.18/0.215/0.25 MG-35 MCG TABS 1 po qd as directed NORGESTIM-ETH ESTRAD TRIPHASIC 92323919994 Active Alli Frye MD Active AXERT 6.25 MG TABS 1 pill by mouth at start of migraine; may repeat x 1 in 1 hr if needed ALMOTRIPTAN MALATE 13212299140 No Longer Active Tamera Mustafa MD PhD Active GENERESS FE 0.8-25 MG-MCG CHEW 1 daily NORETHIN-ETH ESTRADIOL-FE 36446695153 No Longer Active Tamera Mustafa MD PhD Active DOXYCYCLINE HYCLATE 50 MG CAP 1 pill by mouth daily for acne 2012 DOXYCYCLINE HYCLATE 92572383538 No Longer Active Tamera Mustafa MD PhD Active AMOXICILLIN 875 MG TABS 1 TWO TIMES A DAY AMOXICILLIN 63997497668 No Longer Active Sera Mcdowell MD Active AMOXICILLIN 875 MG TABS 1 TWO TIMES A DAY AMOXICILLIN 875 MG TABS 883978 AMOXICILLIN Inactive DOXYCYCLINE HYCLATE 50 MG CAP 1 pill by mouth daily for acne 2012 DOXYCYCLINE HYCLATE 50 MG CAP 2651867 DOXYCYCLINE HYCLATE Inactive GENERESS FE 0.8-25 MG-MCG CHEW 1 daily GENERESS FE 0.8-25 MG-MCG CHEW 6999052 NORETHIN-ETH ESTRADIOL-FE Inactive AXERT 6.25 MG TABS 1 pill by mouth at start of migraine; may repeat x 1 in 1 hr if needed AXERT 6.25 MG TABS 017163 ALMOTRIPTAN MALATE Inactive MAXALT 5 MG TABS 1 pill by mouth at start of migraine; may repeat x 1 if no improvement in 2 hours MAXALT 5 MG TABS 838644 RIZATRIPTAN BENZOATE Inactive AMOXICILLIN 500 MG TABS 2 PO bid x 10 days AMOXICILLIN 500 MG TABS 108542 AMOXICILLIN Inactive ELIMITE 5 % CREA Apply from head to toe including scalp and soles of feet. Wash off after 8 hours. ELIMITE 5 % CREA 700849 PERMETHRIN Inactive AXERT 12.5 MG TABS 1 tablet by mouth at onset of migraine; may repeat x 1 if headache is still present in 2 hours AXERT 12.5 MG TABS 646398 ALMOTRIPTAN MALATE Inactive MINOCYCLINE HCL 50 MG CAP 1 pill by mouth daily for acne MINOCYCLINE HCL 50 MG CAP 446987 MINOCYCLINE HCL Inactive ZOMIG 5 MG TABS Take 1 tablet by mouth daily as needed ZOMIG 5 MG TABS 292937 ZOLMITRIPTAN Inactive ZOFRAN ODT 4 MG TBDP 1 po q6hr PRN Nausea ZOFRAN ODT 4 MG TBDP 468074 ONDANSETRON Inactive SUMATRIPTAN 20 MG/ACT SOLN 1 spray in one nostril at onset of migraine; may repeat in 2 hours if needed for continued migraine SUMATRIPTAN 20 MG/ACT SOLN 846976 SUMATRIPTAN Inactive LEVOTHYROXINE SODIUM 125 MCG ORAL TABS 1 pill by mouth daily, for thyroid LEVOTHYROXINE SODIUM 125 MCG ORAL TABS 460589 LEVOTHYROXINE SODIUM Inactive TRANSDERM-SCOP 1.5 MG TRANS PT72 1 patch every 3 days, as needed for motion sickness, start at least 4 hours hours prior to departure TRANSDERM-SCOP 1.5 MG TRANS PT72 SCOPOLAMINE BASE Inactive AMITRIPTYLINE HCL 75 MG TAB take 1 tab po qhs for migraines. 2016 AMITRIPTYLINE HCL 75 MG TAB 022252 AMITRIPTYLINE HCL Inactive MAGNESIUM OXIDE 400 MG CAPS 1 po with migraine MAGNESIUM OXIDE 400 MG CAPS 871794 MAGNESIUM OXIDE Inactive AMITRIPTYLINE HCL 50 MG ORAL TABS 1 pill by mouth nightly, for migraine prevention AMITRIPTYLINE HCL 50 MG ORAL TABS 651635 AMITRIPTYLINE HCL Inactive AMITRIPTYLINE HCL 50 MG TAB 1 po qhs for migraine AMITRIPTYLINE HCL 50 MG TAB 936088 AMITRIPTYLINE HCL Inactive ZOLOFT 50 MG TAB 1 tablet by mouth daily for mood and headache ZOLOFT 50 MG TAB 008337 SERTRALINE HCL Inactive AMITRIPTYLINE HCL 25 MG TAB 1 tab by mouth daily at bedtime 11/04 AMITRIPTYLINE HCL 25 MG TAB 438082 AMITRIPTYLINE HCL Inactive LORAZEPAM 0.5 MG TAB take 1 tab po qday prn anxiety attacks 11/04 LORAZEPAM 0.5 MG TAB 540060 LORAZEPAM Inactive BACTRIM DS 800-160 MG TAB 1 tab by mouth twice daily BACTRIM DS 800-160 MG TAB 610808 TRIMETHOPRIM-SULFAMETHOXAZOLE Inactive ZITHROMAX Z-ADALGISA 250 MG TABS 2 today, then 1 daily for 4 days 2013 ZITHROMAX Z-ADALGISA 250 MG TABS 6111487 AZITHROMYCIN Inactive BACTRIM DS 800-160 MG TAB 1 tab by mouth twice daily BACTRIM DS 800-160 MG TAB 19820713 TRIMETHOPRIM-SULFAMETHOXAZOLE Inactive Advance Directives Directive Description Start Date CONSENT: MEDICATION HISTORY CONSENT FOR MINOR CARE Immunizations Vaccine Administration Date Value Standard Description Adacel (Tetanus, reduced Diphtheria, and acellular Pertussis Immunization) Adacel [[id number]] tetanus toxoid, reduced diphtheria toxoid, and acellular [...] (L), Thyroid Stimulating Hormone (L) - Chemistry TSH 1.28 m[iU]/mL 0.36-3.74 thyroxine, serum, free 1.42 ng/dL 0.78-1.34 Encounters Code Encounter Date Provider Facility CPT-87153 Level 4 Est. Patient 23:05:57 CDT Alli Frye MD [facility]-29856 Level 4 Est. Patient 12:25:34 CDT Alli Frye MD [facility]-41363 Level 4 Est. Patient 13:40:53 CDT Alli Frye MD [facility]-38614 Level 4 Est. Patient 13:18:45 [employer] Alli Frye MD [facility]-05668 Level 4 Est. Patient 11:32:52 [employer] Alli Frye MD [facility]-82971 Level 4 Est. Patient 14:47:16 CDT Alli Frye MD [facility]-77160 Level 3 Est. Patient 17:25:12 CDT Tamera Mustafa MD PhD [facility]-00764 Level 3 Est. Patient 15:47:52 CDT [phone] Level 3 Est. Patient 17:07:09 [employer] Tor Gramajo [phone] Level 3 Est. Patient 11:34:16 CDT Gerson EMANUEL [phone] Level 3 Est. Patient 16:33:58 CDT Edyta Otto APRN [phone] Level 3 Est. Patient 15:17:40 [employer] Sera Mcdowell MD [facility] [phone] Level 3 Est. Patient 16:32:34 [employer] Sera Mcdowell MD [facility] Procedures Code Procedure Name Date Entry Date Standard Description CPT-72612 First Vx - Ix admin via ID IM or jet injects without counseling by physician 15:09:59 CDT CPT-59053 Menveo Intramuscular Solution Reconstituted 15:09:59 CDT CPT-54083 Meningococcal Conjugate Vacine (Menactra) 12:25:34 CDT CPT-62684 Abd compl w upright 16:06:21 CDT CPT-PV Prev. Care Visit 12:33:36 [employer]
--- OUTSIDE RECORDS SUMMARY | 2018-01-18 03:15 | XMS REPORT | Clinical Summary ---
Author Author Admin, QIE Organization [facility] Address Unknown Phone Unavailable Allergies, Adverse [...] 1 tab po qday prn anxiety ALPRAZOLAM 24173613370 Active Alli Frye MD Active LORAZEPAM 0.5 MG TAB take 1 tab po qday prn anxiety attacks 11/04 LORAZEPAM 23723876293 No Longer Active Alli Frye MD Active RANITIDINE HCL 300 MG CAPS 1 tablet by mouth daily prn acid reflux RANITIDINE HCL 58728081431 Active Alli Frye MD Active METOPROLOL TARTRATE 25 MG ORAL TABS take 1 tab po BID METOPROLOL TARTRATE 99396843925 Active Alli Frye MD Active AMITRIPTYLINE HCL 25 MG TAB 1 tab by mouth daily at bedtime 11/04 AMITRIPTYLINE HCL 22377426065 No Longer Active Alli Frye MD Active ZOLOFT 50 MG TAB 1 tablet by mouth daily for mood and headache SERTRALINE HCL 18611235815 No Longer Active Alli Frye MD Active AMITRIPTYLINE HCL 50 MG TAB 1 po qhs for migraine AMITRIPTYLINE HCL 92047664088 No Longer Active Alli Frye MD Active ZOLOFT 100 MG TAB take 1 tab po qday for mood and headaches. SERTRALINE HCL 53230238409 Active Alli Frye MD Active LEVOTHYROXINE SODIUM 112 MCG TABS 1 pill by mouth daily for thyroid LEVOTHYROXINE SODIUM 86565360801 Active Alli Frye MD Active AMITRIPTYLINE HCL 50 MG ORAL TABS 1 pill by mouth nightly, for migraine prevention AMITRIPTYLINE HCL 32004542024 No Longer Active Alli Frye MD Active MAGNESIUM OXIDE 400 MG CAPS 1 po with migraine MAGNESIUM OXIDE 70129960633 No Longer Active Alli Frye MD Active AMITRIPTYLINE HCL 75 MG TAB take 1 tab po qhs for migraines. 2016 AMITRIPTYLINE HCL 01636365982 No Longer Active Alli Frye MD Active MULTIVITAMIN GUMMIES ADULT CHEW MULTIPLE VITAMINS-MINERALS 73268619885 Active Alli Frye MD Active TRANSDERM-SCOP 1.5 MG TRANS PT72 1 patch every 3 days, as needed for motion sickness, start at least 4 hours hours prior to departure SCOPOLAMINE BASE 19059848001 No Longer Active Alli Frye MD Active LEVOTHYROXINE SODIUM 125 MCG ORAL TABS 1 pill by mouth daily, for thyroid LEVOTHYROXINE SODIUM 15091727457 No Longer Active Alli Frye MD Active ZOFRAN ODT 4 MG TBDP 1 pill dissolved by mouth every 4 hours if needed for nausea ONDANSETRON 65555049993 Active Tamera Mustafa MD PhD Active SUMATRIPTAN 20 MG/ACT SOLN 1 spray in one nostril at onset of migraine; may repeat in 2 hours if needed for continued migraine SUMATRIPTAN 30432996647 No Longer Active Tamera Mustafa MD PhD Active ZOFRAN ODT 4 MG TBDP 1 po q6hr PRN Nausea ONDANSETRON 53066703868 No Longer Active Jr Morrow MD Active EXCEDRIN MIGRAINE 250-250-65 MG TABS 1 tab po as needed [id number] 61418733821 Active Jr Morrow MD Active ZOMIG 5 MG TABS Take 1 tablet by mouth daily as needed ZOLMITRIPTAN 15267002891 No Longer Active Jr Morrow MD Active BACTRIM DS 800-160 MG TAB 1 tab by mouth twice daily TRIMETHOPRIM-SULFAMETHOXAZOLE 99380548713 No Longer Active Tamera Mustafa MD PhD Active ZITHROMAX Z-ADALGISA 250 MG TABS 2 today, then 1 daily for 4 days 2013 AZITHROMYCIN 41969293824 No Longer Active Tor Gramajo MD Active MINOCYCLINE HCL 50 MG CAP 1 pill by mouth daily for acne MINOCYCLINE HCL 36528205108 No Longer Active Tor Gramajo MD Active AXERT 12.5 MG TABS 1 tablet by mouth at onset of migraine; may repeat x 1 if headache is still present in 2 hours ALMOTRIPTAN MALATE 84482900663 No Longer Active Tamera Mustafa MD PhD Active ELIMITE 5 % CREA Apply from head to toe including scalp and soles of feet. Wash off after 8 hours. PERMETHRIN 87897226355 No Longer Active Tamera Mustafa MD PhD Active AMOXICILLIN 500 MG TABS 2 PO bid x 10 days AMOXICILLIN 06780576678 No Longer Active Tamera Mustafa MD PhD Active MAXALT 5 MG TABS 1 pill by mouth at start of migraine; may repeat x 1 if no improvement in 2 hours RIZATRIPTAN BENZOATE 50948771070 No Longer Active Tamera Mustafa MD PhD Active BACTRIM DS 800-160 MG TAB 1 tab by mouth twice daily TRIMETHOPRIM-SULFAMETHOXAZOLE 41978725725 No Longer Active Alli Frye MD Active TRI-SPRINTEC 0.18/0.215/0.25 MG-35 MCG TABS 1 po qd as directed NORGESTIM-ETH ESTRAD TRIPHASIC 22372084231 Active Alli Frye MD Active AXERT 6.25 MG TABS 1 pill by mouth at start of migraine; may repeat x 1 in 1 hr if needed ALMOTRIPTAN MALATE 46611608822 No Longer Active Tamera Mustafa MD PhD Active GENERESS FE 0.8-25 MG-MCG CHEW 1 daily NORETHIN-ETH ESTRADIOL-FE 14722886256 No Longer Active Tamera Mustafa MD PhD Active DOXYCYCLINE HYCLATE 50 MG CAP 1 pill by mouth daily for acne 2012 DOXYCYCLINE HYCLATE 39650246511 No Longer Active Tamera Mustafa MD PhD Active AMOXICILLIN 875 MG TABS 1 TWO TIMES A DAY AMOXICILLIN 56890930981 No Longer Active Sera Mcdowell MD Active AMOXICILLIN 875 MG TABS 1 TWO TIMES A DAY AMOXICILLIN 875 MG TABS 902909 AMOXICILLIN Inactive DOXYCYCLINE HYCLATE 50 MG CAP 1 pill by mouth daily for acne 2012 DOXYCYCLINE HYCLATE 50 MG CAP 1263117 DOXYCYCLINE HYCLATE Inactive GENERESS FE 0.8-25 MG-MCG CHEW 1 daily GENERESS FE 0.8-25 MG-MCG CHEW 3818244 NORETHIN-ETH ESTRADIOL-FE Inactive AXERT 6.25 MG TABS 1 pill by mouth at start of migraine; may repeat x 1 in 1 hr if needed AXERT 6.25 MG TABS 864210 ALMOTRIPTAN MALATE Inactive MAXALT 5 MG TABS 1 pill by mouth at start of migraine; may repeat x 1 if no improvement in 2 hours MAXALT 5 MG TABS 362057 RIZATRIPTAN BENZOATE Inactive AMOXICILLIN 500 MG TABS 2 PO bid x 10 days AMOXICILLIN 500 MG TABS 007977 AMOXICILLIN Inactive ELIMITE 5 % CREA Apply from head to toe including scalp and soles of feet. Wash off after 8 hours. ELIMITE 5 % CREA 750964 PERMETHRIN Inactive AXERT 12.5 MG TABS 1 tablet by mouth at onset of migraine; may repeat x 1 if headache is still present in 2 hours AXERT 12.5 MG TABS 233017 ALMOTRIPTAN MALATE Inactive MINOCYCLINE HCL 50 MG CAP 1 pill by mouth daily for acne MINOCYCLINE HCL 50 MG CAP 462042 MINOCYCLINE HCL Inactive ZOMIG 5 MG TABS Take 1 tablet by mouth daily as needed ZOMIG 5 MG TABS 575212 ZOLMITRIPTAN Inactive ZOFRAN ODT 4 MG TBDP 1 po q6hr PRN Nausea ZOFRAN ODT 4 MG TBDP 447827 ONDANSETRON Inactive SUMATRIPTAN 20 MG/ACT SOLN 1 spray in one nostril at onset of migraine; may repeat in 2 hours if needed for continued migraine SUMATRIPTAN 20 MG/ACT SOLN 524615 SUMATRIPTAN Inactive LEVOTHYROXINE SODIUM 125 MCG ORAL TABS 1 pill by mouth daily, for thyroid LEVOTHYROXINE SODIUM 125 MCG ORAL TABS 331277 LEVOTHYROXINE SODIUM Inactive TRANSDERM-SCOP 1.5 MG TRANS PT72 1 patch every 3 days, as needed for motion sickness, start at least 4 hours hours prior to departure TRANSDERM-SCOP 1.5 MG TRANS PT72 SCOPOLAMINE BASE Inactive AMITRIPTYLINE HCL 75 MG TAB take 1 tab po qhs for migraines. 2016 AMITRIPTYLINE HCL 75 MG TAB 747176 AMITRIPTYLINE HCL Inactive MAGNESIUM OXIDE 400 MG CAPS 1 po with migraine MAGNESIUM OXIDE 400 MG CAPS 884130 MAGNESIUM OXIDE Inactive AMITRIPTYLINE HCL 50 MG ORAL TABS 1 pill by mouth nightly, for migraine prevention AMITRIPTYLINE HCL 50 MG ORAL TABS 248969 AMITRIPTYLINE HCL Inactive AMITRIPTYLINE HCL 50 MG TAB 1 po qhs for migraine AMITRIPTYLINE HCL 50 MG TAB 832388 AMITRIPTYLINE HCL Inactive ZOLOFT 50 MG TAB 1 tablet by mouth daily for mood and headache ZOLOFT 50 MG TAB 731812 SERTRALINE HCL Inactive AMITRIPTYLINE HCL 25 MG TAB 1 tab by mouth daily at bedtime 11/04 AMITRIPTYLINE HCL 25 MG TAB 104950 AMITRIPTYLINE HCL Inactive LORAZEPAM 0.5 MG TAB take 1 tab po qday prn anxiety attacks 11/04 LORAZEPAM 0.5 MG TAB 692057 LORAZEPAM Inactive BACTRIM DS 800-160 MG TAB 1 tab by mouth twice daily BACTRIM DS 800-160 MG TAB 19820713 TRIMETHOPRIM-SULFAMETHOXAZOLE Inactive ZITHROMAX Z-ADALGISA 250 MG TABS 2 today, then 1 daily for 4 days 2013 ZITHROMAX Z-ADALGISA 250 MG TABS 7271616 AZITHROMYCIN Inactive BACTRIM DS 800-160 MG TAB 1 tab by mouth twice daily BACTRIM DS 800-160 MG TAB 19820713 TRIMETHOPRIM-SULFAMETHOXAZOLE Inactive Advance Directives Directive Description Start Date CONSENT: MEDICATION HISTORY CONSENT FOR MINOR CARE Immunizations Vaccine Administration Date Value Standard Description Adacel (Tetanus, reduced Diphtheria, and acellular Pertussis Immunization) Adacel [[id number]] tetanus toxoid, reduced diphtheria toxoid, and acellular [...] 0.78-1.34 Encounters Code Encounter Date Provider Facility CPT-80955 Level 4 Est. Patient 23:05:57 CDT Alli Frye MD [facility]-56574 Level 4 Est. Patient 12:25:34 CDT Alli Frye MD [facility]-20159 Level 4 Est. Patient 13:40:53 CDT Alli Frye MD [facility]-61439 Level 4 Est. Patient 13:18:45 GARMENT STEAMER Alli Frye MD [facility]-87277 Level 4 Est. Patient 11:32:52 GARMENT STEAMER Alli Frye MD [facility]-08464 Level 4 Est. Patient 14:47:16 CDT Alli Frye MD [facility]-30139 Level 3 Est. Patient 17:25:12 CDT Tamera Mustafa MD PhD [facility]-12172 Level 3 Est. Patient 15:47:52 CDT Jr Morrow MD [facility] CPT-09695 Level 3 Est. Patient 17:07:09 GARMENT STEAMER Tor Gramajo MD [facility] CPT-73237 Level 3 Est. Patient 11:34:16 CDT Gerson EMANUEL [facility] CPT-15041 Level 3 Est. Patient 16:33:58 CDT Edyta Otto APRN [facility] CPT-71722 Level 3 Est. Patient 15:17:40 GARMENT STEAMER Sera Mcdowell MD [facility] CPT-86931 Level 3 Est. Patient 16:32:34 GARMENT STEAMER Sera Mcdowell MD [facility] Procedures Code Procedure Name Date Entry Date Standard Description CPT-75844 First Vx - Ix admin via ID IM or jet injects without counseling by physician 15:09:59 CDT CPT-79414 Menveo Intramuscular Solution Reconstituted 15:09:59 CDT CPT-60438 Meningococcal Conjugate Vacine (Menactra) 12:25:34 CDT CPT-57366 Abd compl w upright 16:06:21 CDT CPT-PV Prev. 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
--- OUTSIDE RECORDS SUMMARY | 2018-01-18 03:15 | XMS REPORT | Clinical Summary ---
Author Author Admin, WILBERT Organization [facility] Address Unknown Phone Unavailable Allergies, Adverse Reactions, [...] Hematuria 599.70 Active Tatyana Lam Hematuria, unspecified CARDIAC ARRHYTHMIA, INTERMITTENT ICD-427.9 Inactive Sera [...] Generic Name NDC Status Provider Patient Instruction AMITRIPTYLINE HCL 75 MG TAB take 1 tab po qhs for migraines. AMITRIPTYLINE HCL 16446517730 Active Alli Frye MD Active MAGNESIUM OXIDE 400 MG CAPS 1 po with migraine MAGNESIUM OXIDE 36840539620 Active Alli Frye MD Active MULTIVITAMIN GUMMIES ADULT CHEW MULTIPLE VITAMINS-MINERALS 35070401105 Active Alli Frye MD Active TRANSDERM-SCOP 1.5 MG TRANS PT72 1 patch every 3 days, as needed for motion sickness, start at least 4 hours hours prior to departure SCOPOLAMINE BASE 97899281680 No Longer Active Alli Frye MD Active LEVOTHYROXINE SODIUM 100 MCG TABS 1 pill by mouth daily for thyroid LEVOTHYROXINE SODIUM 66458298119 Active Alli Frye MD Active LEVOTHYROXINE SODIUM 125 MCG ORAL TABS 1 pill by mouth daily, for thyroid LEVOTHYROXINE SODIUM 06537381774 No Longer Active Alli Frye MD Active AMITRIPTYLINE HCL 50 MG ORAL TABS 1 pill by mouth nightly, for migraine prevention AMITRIPTYLINE HCL 94795522685 Active Tamera Mustafa MD PhD Active ZOFRAN ODT 4 MG TBDP 1 pill dissolved by mouth every 4 hours if needed for nausea ONDANSETRON 92230391975 Active Tamera Mustafa MD PhD Active SUMATRIPTAN 20 MG/ACT SOLN 1 spray in one nostril at onset of migraine; may repeat in 2 hours if needed for continued migraine SUMATRIPTAN 17518784521 No Longer Active Tamera Mustafa MD PhD Active ZOFRAN ODT 4 MG TBDP 1 po q6hr PRN Nausea ONDANSETRON 65922865130 No Longer Active Jr Morrow MD Active EXCEDRIN MIGRAINE 250-250-65 MG TABS 1 tab po as needed [id number] 77321625175 Active Jr Morrow MD Active ZOMIG 5 MG TABS Take 1 tablet by mouth daily as needed ZOLMITRIPTAN 25131744567 No Longer Active Jr Morrow MD Active BACTRIM DS 800-160 MG TAB 1 tab by mouth twice daily TRIMETHOPRIM-SULFAMETHOXAZOLE 29087282465 No Longer Active Tamera Mustafa MD PhD Active ZITHROMAX Z-ADALGISA 250 MG TABS 2 today, then 1 daily for 4 days 2013 AZITHROMYCIN 00428745622 No Longer Active Tor Gramajo MD Active MINOCYCLINE HCL 50 MG CAP 1 pill by mouth daily for acne MINOCYCLINE HCL 09404542509 No Longer Active Tor Gramajo MD Active AXERT 12.5 MG TABS 1 tablet by mouth at onset of migraine; may repeat x 1 if headache is still present in 2 hours ALMOTRIPTAN MALATE 01187277372 No Longer Active Tamera Mustafa MD PhD Active ELIMITE 5 % CREA Apply from head to toe including scalp and soles of feet. Wash off after 8 hours. PERMETHRIN 65144661615 No Longer Active Tamera Mustafa MD PhD Active AMOXICILLIN 500 MG TABS 2 PO bid x 10 days AMOXICILLIN 33995294482 No Longer Active Tamera Mustafa MD PhD Active MAXALT 5 MG TABS 1 pill by mouth at start of migraine; may repeat x 1 if no improvement in 2 hours RIZATRIPTAN BENZOATE 20169271774 No Longer Active Tamera Mustafa MD PhD Active BACTRIM DS 800-160 MG TAB 1 tab by mouth twice daily TRIMETHOPRIM-SULFAMETHOXAZOLE 92214454109 No Longer Active Alli Frye MD Active TRI-SPRINTEC 0.18/0.215/0.25 MG-35 MCG TABS 1 po qd as directed NORGESTIM-ETH ESTRAD TRIPHASIC 92207295946 Active Alli Frye MD Active AXERT 6.25 MG TABS 1 pill by mouth at start of migraine; may repeat x 1 in 1 hr if needed ALMOTRIPTAN MALATE 51158435709 No Longer Active Tamera Mustafa MD PhD Active GENERESS FE 0.8-25 MG-MCG CHEW 1 daily NORETHIN-ETH ESTRADIOL-FE 81898831667 No Longer Active Tamera Mustafa MD PhD Active DOXYCYCLINE HYCLATE 50 MG CAP 1 pill by mouth daily for acne 2012 DOXYCYCLINE HYCLATE 74379407671 No Longer Active Tamera Mustafa MD PhD Active AMOXICILLIN 875 MG TABS 1 TWO TIMES A DAY AMOXICILLIN 81746718170 No Longer Active Sera Mcdowell MD Active AMOXICILLIN 875 MG TABS 1 TWO TIMES A DAY AMOXICILLIN 875 MG TABS 231311 AMOXICILLIN Inactive DOXYCYCLINE HYCLATE 50 MG CAP 1 pill by mouth daily for acne 2012 DOXYCYCLINE HYCLATE 50 MG CAP 8463668 DOXYCYCLINE HYCLATE Inactive GENERESS FE 0.8-25 MG-MCG CHEW 1 daily GENERESS FE 0.8-25 MG-MCG CHEW 4720492 NORETHIN-ETH ESTRADIOL-FE Inactive AXERT 6.25 MG TABS 1 pill by mouth at start of migraine; may repeat x 1 in 1 hr if needed AXERT 6.25 MG TABS 942441 ALMOTRIPTAN MALATE Inactive MAXALT 5 MG TABS 1 pill by mouth at start of migraine; may repeat x 1 if no improvement in 2 hours MAXALT 5 MG TABS 230240 RIZATRIPTAN BENZOATE Inactive AMOXICILLIN 500 MG TABS 2 PO bid x 10 days AMOXICILLIN 500 MG TABS 007326 AMOXICILLIN Inactive ELIMITE 5 % CREA Apply from head to toe including scalp and soles of feet. Wash off after 8 hours. ELIMITE 5 % CREA 730477 PERMETHRIN Inactive AXERT 12.5 MG TABS 1 tablet by mouth at onset of migraine; may repeat x 1 if headache is still present in 2 hours AXERT 12.5 MG TABS 601250 ALMOTRIPTAN MALATE Inactive MINOCYCLINE HCL 50 MG CAP 1 pill by mouth daily for acne MINOCYCLINE HCL 50 MG CAP 852624 MINOCYCLINE HCL Inactive ZOMIG 5 MG TABS Take 1 tablet by mouth daily as needed ZOMIG 5 MG TABS 713214 ZOLMITRIPTAN Inactive ZOFRAN ODT 4 MG TBDP 1 po q6hr PRN Nausea ZOFRAN ODT 4 MG TBDP 307699 ONDANSETRON Inactive SUMATRIPTAN 20 MG/ACT SOLN 1 spray in one nostril at onset of migraine; may repeat in 2 hours if needed for continued migraine SUMATRIPTAN 20 MG/ACT SOLN 975256 SUMATRIPTAN Inactive LEVOTHYROXINE SODIUM 125 MCG ORAL TABS 1 pill by mouth daily, for thyroid LEVOTHYROXINE SODIUM 125 MCG ORAL TABS 830091 LEVOTHYROXINE SODIUM Inactive TRANSDERM-SCOP 1.5 MG TRANS PT72 1 patch every 3 days, as needed for motion sickness, start at least 4 hours hours prior to departure TRANSDERM-SCOP 1.5 MG TRANS PT72 SCOPOLAMINE BASE Inactive BACTRIM DS 800-160 MG TAB 1 tab by mouth twice daily BACTRIM DS 800-160 MG TAB 569656 TRIMETHOPRIM-SULFAMETHOXAZOLE Inactive ZITHROMAX Z-ADALGISA 250 MG TABS 2 today, then 1 daily for 4 days 2013 ZITHROMAX Z-ADALGISA 250 MG TABS 3517684 AZITHROMYCIN Inactive BACTRIM DS 800-160 MG TAB 1 tab by mouth twice daily BACTRIM DS 800-160 MG TAB 918706 TRIMETHOPRIM-SULFAMETHOXAZOLE Inactive Advance Directives Directive Description Start Date CONSENT: MEDICATION HISTORY CONSENT FOR MINOR CARE Immunizations Vaccine Administration Date Value Standard Description Adacel (Tetanus, reduced Diphtheria, and acellular Pertussis Immunization) Adacel [[id number]] tetanus toxoid, reduced diphtheria toxoid, and acellular [...] Value Unit Range Description blood pressure, diastolic - 8462-4 77 mm[Hg] BP bonilla blood pressure, systolic - 8480-6 117 mm[Hg] BP sys pulse rate E&M - 8867-4 98 /min Heart rate temperature E&M 98.5 [degF] Body temperature weight E&M - 3141-9 141 [lb_av] Weight Measured Diagnostic Results Date Name Value Unit Range Description Chart Maintenance: Outside labs entered on flowsheet - Chemistry prostate specific antigen 3.70 ng/mL Encounters Code Encounter Date Provider Facility CPT-70852 Level 4 Est. Patient 14:47:16 CDT Alli Frye MD [facility] CPT-58392 Level 3 Est. Patient 17:25:12 CDT Tamera Mustafa MD PhD [facility] CPT-67609 Level 3 Est. Patient 15:47:52 CDT Jr Morrow MD [facility] CPT-92833 Level 3 Est. Patient 17:07:09 LOGISTICS ENGINEER Tor Gramajo MD [facility] CPT-70513 Level 3 Est. Patient 11:34:16 CDT Gerson EMANUEL [facility] CPT-06642 Level 3 Est. Patient 16:33:58 CDT Edyta Otto APRN [facility] CPT-56258 Level 3 Est. Patient 15:17:40 LOGISTICS ENGINEER Sera Mcdowell MD [facility] CPT-14636 Level 3 Est. Patient 16:32:34 LOGISTICS ENGINEER Sera Mcdowell MD [facility] Procedures Code Procedure Name Date Entry Date Standard Description CPT-42576 Abd compl w upright 16:06:21 CDT CPT-PV Prev. Care Visit 12:33:36 LOGISTICS ENGINEER
--- OUTSIDE RECORDS SUMMARY | 2018-01-18 03:16 | XMS REPORT | Clinical Summary ---
Author Author Admin, WILBERT Organization [employer] Address Unknown Phone Unavailable Allergies, Adverse Reactions, [...] 1 tab po BID prn anxiety ALPRAZOLAM 33549302265 Active Alli Frye MD Active QUETIAPINE FUMARATE 25 MG ORAL TABLET take 1 tab po qhs for anxiety QUETIAPINE FUMARATE 35664192098 Active Alli Frye MD Active METOPROLOL TARTRATE 25 MG ORAL TABLET take 1 tab po daily METOPROLOL TARTRATE 35544403136 Active Alli Frye MD Active HYDROXYZINE HCL 50 MG ORAL TABLET 1 tab po BID as needed for anxiety HYDROXYZINE HCL 32057561109 No Longer Active Alli Frye MD Active ZOLOFT 100 MG ORAL TABLET take 2 tabs po qday for mood and headaches. SERTRALINE HCL 38862898367 Active Juliane Melendez LPN Active BUSPIRONE HCL 10 MG ORAL TABLET 1 TAB PO PRN BUSPIRONE HCL 12496662427 No Longer Active Juliane Melendez LPN Active ALPRAZOLAM 0.5 MG ORAL TABLET take 1 tab po qday prn anxiety 2016 ALPRAZOLAM 91719740733 No Longer Active Tatyana Lam Active LORAZEPAM 0.5 MG ORAL TABLET take 1 tab po qday prn anxiety attacks LORAZEPAM 24224869671 No Longer Active Alli Frye MD Active RANITIDINE HCL 300 MG ORAL CAPSULE 1 tablet by mouth daily prn acid reflux RANITIDINE HCL 17267968659 Active Alli Frye MD Active AMITRIPTYLINE HCL 25 MG ORAL TABLET 1 tab by mouth daily at bedtime AMITRIPTYLINE HCL 78333590646 No Longer Active Alli Frye MD Active ZOLOFT 50 MG ORAL TABLET 1 tablet by mouth daily for mood and headache 07/10 SERTRALINE HCL 31594442472 No Longer Active Alli Frye MD Active AMITRIPTYLINE HCL 50 MG ORAL TABLET 1 po qhs for migraine AMITRIPTYLINE HCL 47543235246 No Longer Active Alli Frye MD Active LEVOTHYROXINE SODIUM 112 MCG ORAL TABLET 1 pill by mouth daily for thyroid LEVOTHYROXINE SODIUM 22296977173 Active Alli Frye MD Active AMITRIPTYLINE HCL 50 MG ORAL TABLET 1 pill by mouth nightly, for migraine prevention AMITRIPTYLINE HCL 33597847331 No Longer Active Alli Frye MD Active MAGNESIUM OXIDE 400 MG ORAL CAPSULE 1 po with migraine MAGNESIUM OXIDE 16331668364 No Longer Active Alli Frye MD Active AMITRIPTYLINE HCL 75 MG ORAL TABLET take 1 tab po qhs for migraines. AMITRIPTYLINE HCL 61320106205 No Longer Active Alli Frye MD Active MULTIVITAMIN GUMMIES ADULT ORAL TABLET CHEWABLE MULTIPLE VITAMINS-MINERALS 05812793013 Active Alli Frye MD Active TRANSDERM-SCOP (1.5 MG) 1 MG/3DAYS TRANSDERMAL PATCH 72 HOUR 1 patch every 3 days, as needed for motion sickness, start at least 4 hours hours prior to departure SCOPOLAMINE BASE 34622871050 No Longer Active Alli Frye MD Active LEVOTHYROXINE SODIUM 125 MCG ORAL TABLET 1 pill by mouth daily, for thyroid LEVOTHYROXINE SODIUM 23689705437 No Longer Active Alli Frye MD Active ZOFRAN ODT 4 MG ORAL TABLET DISINTEGRATING 1 pill dissolved by mouth every 4 hours if needed for nausea ONDANSETRON 91053982275 Active Tamera Mustafa MD PhD Active SUMATRIPTAN 20 MG/ACT NASAL SOLUTION 1 spray in one nostril at onset of migraine; may repeat in 2 hours if needed for continued migraine SUMATRIPTAN 70508378054 No Longer Active Tamera Mustafa MD PhD Active ZOFRAN ODT 4 MG ORAL TABLET DISINTEGRATING 1 po q6hr PRN Nausea ONDANSETRON 93937845366 No Longer Active Jr Morrow MD Active EXCEDRIN MIGRAINE 250-250-65 MG ORAL TABLET 1 tab po as needed [id number] 23592413165 Active Jr Morrow MD Active ZOMIG 5 MG ORAL TABLET Take 1 tablet by mouth daily as needed ZOLMITRIPTAN 93924385083 No Longer Active Jr Morrow MD Active BACTRIM DS 800-160 MG ORAL TABLET 1 tab by mouth twice daily 2013 TRIMETHOPRIM-SULFAMETHOXAZOLE 46324547000 No Longer Active Tamera Mustafa MD PhD Active ZITHROMAX Z-ADALGISA 250 MG ORAL TABLET 2 today, then 1 daily for 4 days AZITHROMYCIN 77653267615 No Longer Active Tor Gramajo MD Active MINOCYCLINE HCL 50 MG ORAL CAPSULE 1 pill by mouth daily for acne MINOCYCLINE HCL 76015856743 No Longer Active Tor Gramajo MD Active AXERT 12.5 MG ORAL TABLET 1 tablet by mouth at onset of migraine; may repeat x 1 if headache is still present in 2 hours ALMOTRIPTAN MALATE 06056740132 No Longer Active Tamera Mustafa MD PhD Active ELIMITE 5 % EXTERNAL CREAM Apply from head to toe including scalp and soles of feet. Wash off after 8 hours. PERMETHRIN 63689459977 No Longer Active Tamera Mustafa MD PhD Active AMOXICILLIN 500 MG ORAL TABLET 2 PO bid x 10 days AMOXICILLIN 38726980031 No Longer Active Tamera Mustafa MD PhD Active MAXALT 5 MG ORAL TABLET 1 pill by mouth at start of migraine; may repeat x 1 if no improvement in 2 hours RIZATRIPTAN BENZOATE 41390950710 No Longer Active Tamera Mustafa MD PhD Active BACTRIM DS 800-160 MG ORAL TABLET 1 tab by mouth twice daily 2012 TRIMETHOPRIM-SULFAMETHOXAZOLE 45833504050 No Longer Active Alli Frye MD Active TRI-SPRINTEC 0.18/0.215/0.25 MG-35 MCG ORAL TABLET 1 po qd as directed 06/28 NORGESTIM-ETH ESTRAD TRIPHASIC 29134755945 Active Alli Frye MD Active AXERT 6.25 MG ORAL TABLET 1 pill by mouth at start of migraine; may repeat x 1 in 1 hr if needed ALMOTRIPTAN MALATE 50810820041 No Longer Active Tamera Mustafa MD PhD Active GENERESS FE 0.8-25 MG-MCG ORAL TABLET CHEWABLE 1 daily NORETHIN-ETH ESTRADIOL-FE 13564550826 No Longer Active Tamera Mustafa MD PhD Active DOXYCYCLINE HYCLATE 50 MG ORAL CAPSULE 1 pill by mouth daily for acne DOXYCYCLINE HYCLATE 65053872874 No Longer Active Tamera Mustafa MD PhD Active AMOXICILLIN 875 MG ORAL TABLET 1 TWO TIMES A DAY AMOXICILLIN 41249965742 No Longer Active Sera Mcdowell MD Active AMOXICILLIN 875 MG ORAL TABLET 1 TWO TIMES A DAY AMOXICILLIN 875 MG ORAL TABLET 796522 AMOXICILLIN Inactive DOXYCYCLINE HYCLATE 50 MG ORAL CAPSULE 1 pill by mouth daily for acne DOXYCYCLINE HYCLATE 50 MG ORAL CAPSULE 5118102 DOXYCYCLINE HYCLATE Inactive GENERESS FE 0.8-25 MG-MCG ORAL TABLET CHEWABLE 1 daily GENERESS FE 0.8-25 MG-MCG ORAL TABLET CHEWABLE 7873605 NORETHIN-ETH ESTRADIOL-FE Inactive AXERT 6.25 MG ORAL TABLET 1 pill by mouth at start of migraine; may repeat x 1 in 1 hr if needed AXERT 6.25 MG ORAL TABLET 127695 ALMOTRIPTAN MALATE Inactive MAXALT 5 MG ORAL TABLET 1 pill by mouth at start of migraine; may repeat x 1 if no improvement in 2 hours MAXALT 5 MG ORAL TABLET 911597 RIZATRIPTAN BENZOATE Inactive AMOXICILLIN 500 MG ORAL TABLET 2 PO bid x 10 days AMOXICILLIN 500 MG ORAL TABLET 112185 AMOXICILLIN Inactive ELIMITE 5 % EXTERNAL CREAM Apply from head to toe including scalp and soles of feet. Wash off after 8 hours. ELIMITE 5 % EXTERNAL CREAM 830155 PERMETHRIN Inactive AXERT 12.5 MG ORAL TABLET 1 tablet by mouth at onset of migraine; may repeat x 1 if headache is still present in 2 hours AXERT 12.5 MG ORAL TABLET 511348 ALMOTRIPTAN MALATE Inactive MINOCYCLINE HCL 50 MG ORAL CAPSULE 1 pill by mouth daily for acne MINOCYCLINE HCL 50 MG ORAL CAPSULE 759463 MINOCYCLINE HCL Inactive ZOMIG 5 MG ORAL TABLET Take 1 tablet by mouth daily as needed ZOMIG 5 MG ORAL TABLET 858183 ZOLMITRIPTAN Inactive ZOFRAN ODT 4 MG ORAL TABLET DISINTEGRATING 1 po q6hr PRN Nausea ZOFRAN ODT 4 MG ORAL TABLET DISINTEGRATING 056952 ONDANSETRON Inactive SUMATRIPTAN 20 MG/ACT NASAL SOLUTION 1 spray in one nostril at onset of migraine; may repeat in 2 hours if needed for continued migraine SUMATRIPTAN 20 MG/ACT NASAL SOLUTION 976544 SUMATRIPTAN Inactive LEVOTHYROXINE SODIUM 125 MCG ORAL TABLET 1 pill by mouth daily, for thyroid LEVOTHYROXINE SODIUM 125 MCG ORAL TABLET 241896 LEVOTHYROXINE SODIUM Inactive TRANSDERM-SCOP (1.5 MG) 1 MG/3DAYS TRANSDERMAL PATCH 72 HOUR 1 patch every 3 days, as needed for motion sickness, start at least 4 hours hours prior to departure TRANSDERM-SCOP (1.5 MG) 1 MG/3DAYS TRANSDERMAL PATCH 72 HOUR SCOPOLAMINE BASE Inactive AMITRIPTYLINE HCL 75 MG ORAL TABLET take 1 tab po qhs for migraines. AMITRIPTYLINE HCL 75 MG ORAL TABLET 090601 AMITRIPTYLINE HCL Inactive MAGNESIUM OXIDE 400 MG ORAL CAPSULE 1 po with migraine MAGNESIUM OXIDE 400 MG ORAL CAPSULE 396615 MAGNESIUM OXIDE Inactive AMITRIPTYLINE HCL 50 MG ORAL TABLET 1 pill by mouth nightly, for migraine prevention AMITRIPTYLINE HCL 50 MG ORAL TABLET 690983 AMITRIPTYLINE HCL Inactive AMITRIPTYLINE HCL 50 MG ORAL TABLET 1 po qhs for migraine AMITRIPTYLINE HCL 50 MG ORAL TABLET 357460 AMITRIPTYLINE HCL Inactive ZOLOFT 50 MG ORAL TABLET 1 tablet by mouth daily for mood and headache 07/10 ZOLOFT 50 MG ORAL TABLET 775590 SERTRALINE HCL Inactive AMITRIPTYLINE HCL 25 MG ORAL TABLET 1 tab by mouth daily at bedtime AMITRIPTYLINE HCL 25 MG ORAL TABLET 327741 AMITRIPTYLINE HCL Inactive LORAZEPAM 0.5 MG ORAL TABLET take 1 tab po qday prn anxiety attacks LORAZEPAM 0.5 MG ORAL TABLET 243718 LORAZEPAM Inactive ALPRAZOLAM 0.5 MG ORAL TABLET take 1 tab po qday prn anxiety 2016 ALPRAZOLAM 0.5 MG ORAL TABLET 779204 ALPRAZOLAM Inactive BUSPIRONE HCL 10 MG ORAL TABLET 1 TAB PO PRN BUSPIRONE HCL 10 MG ORAL TABLET 212675 BUSPIRONE HCL Inactive HYDROXYZINE HCL 50 MG ORAL TABLET 1 tab po BID as needed for anxiety HYDROXYZINE HCL 50 MG ORAL TABLET 264716 HYDROXYZINE HCL Inactive BACTRIM DS 800-160 MG ORAL TABLET 1 tab by mouth twice daily 2012 BACTRIM DS 800-160 MG ORAL TABLET 553105 TRIMETHOPRIM- SULFAMETHOXAZOLE Inactive ZITHROMAX Z-ADALGISA 250 MG ORAL TABLET 2 today, then 1 daily for 4 days ZITHROMAX Z-ADALGISA 250 MG ORAL TABLET 409535 AZITHROMYCIN Inactive BACTRIM DS 800-160 MG ORAL TABLET 1 tab by mouth twice daily 2013 BACTRIM DS 800-160 MG ORAL TABLET 212394 TRIMETHOPRIM- SULFAMETHOXAZOLE Inactive Advance Directives Directive Description Start Date CONSENT: MEDICATION HISTORY CONSENT FOR MINOR CARE Immunizations Vaccine Administration Date Value Standard Description Adacel (Tetanus, reduced Diphtheria, and acellular Pertussis Immunization) Adacel [[id number]] tetanus toxoid, reduced diphtheria toxoid, and acellular [...] temperature weight E&M 151.5 [lb_av] Weight Measured blood pressure, diastolic 68 mm[Hg] BP bonilla [...] 0.36-3.74 Encounters Code Encounter Date Provider Facility CPT-90277 Level 4 Est. Patient 15:50:37 ELECTRO MECHANICAL DESIGNER Alli Frye MD [facility]-42744 Level 4 Est. Patient 23:05:57 CDT Alli Frye MD [facility]-82101 Level 4 Est. Patient 12:25:34 CDT Alli Frye MD [facility]-71241 Level 4 Est. Patient 13:40:53 CDT Alli Frye MD [facility]-35515 Level 4 Est. Patient 13:18:45 ELECTRO MECHANICAL DESIGNER Alli Frye MD [facility]-35985 Level 4 Est. Patient 11:32:52 ELECTRO MECHANICAL DESIGNER Alli Frye MD [facility]-09673 Level 4 Est. Patient 14:47:16 CDT Alli Frye MD [facility]-81759 Level 3 Est. Patient 17:25:12 CDT Tamera Mustafa MD PhD [facility]-48054 Level 3 Est. Patient 15:47:52 CDT Jr Morrow MD [facility] CPT-28569 Level 3 Est. Patient 17:07:09 ELECTRO MECHANICAL DESIGNER Tor Gramajo MD [facility] CPT-53165 Level 3 Est. Patient 11:34:16 CDT Gerson EMANUEL [facility] CPT-16324 Level 3 Est. Patient 16:33:58 CDT Edyta Otto APRN [facility] CPT-07784 Level 3 Est. Patient 15:17:40 ELECTRO MECHANICAL DESIGNER Sera Mcdowell MD [facility] CPT-57686 Level 3 Est. Patient 16:32:34 ELECTRO MECHANICAL DESIGNER Sera Mcdowell MD [facility] Procedures Code Procedure Name Date Entry Date Standard Description CPT-98595 First Vx - Ix admin via ID IM or jet injects without counseling by physician 15:09:59 CDT CPT-04245 Menveo Intramuscular Solution Reconstituted 15:09:59 CDT CPT-80113 Meningococcal Conjugate Vacine (Menactra) 12:25:34 CDT CPT-72145 Abd compl w upright 16:06:21 CDT CPT-PV Prev. Care Visit 12:33:36 ELECTRO MECHANICAL DESIGNER
--- OUTSIDE RECORDS SUMMARY | 2018-01-18 03:16 | XMS REPORT | Clinical Summary ---
Author Author Admin, WILBERT Aleman [facility] Address Unknown Phone Unavailable Allergies, Adverse [...] advice on contraceptive management Hematuria 599.70 Active Ttayana Lam Hematuria, unspecified CARDIAC ARRHYTHMIA, INTERMITTENT ICD-427.9 Inactive Sera Mcdowell MD DYSURIA ICD-788.1 Inactive Sera Mcdowell MD CONSTIPATION UNSP. ICD-564.00 Inactive Sera Mcdowell MD PHARYNGITIS ACUTE ICD-462 Inactive Sera Mcdowell MD SCABIES ICD-133.0 Inactive Tor Gramajo MD 05/30 Tonsillitis, acute ICD-463 Inactive Tamera Mustafa MD PhD UTI ICD-599.0 Inactive Tamera Mustafa MD PhD PHARYNGITIS ICD-462 Inactive Tamera Mustafa MD PhD THYROMEGALY ICD-240.9 Inactive Tamera Mustafa MD PhD Medication List Medication Instructions Start Date Stop Date Generic Name NDC Status Provider Patient Instruction AMITRIPTYLINE HCL 75 MG TAB take 1 tab po qhs for migraines. AMITRIPTYLINE HCL 60269104970 Active Alli Frye MD Active MAGNESIUM OXIDE 400 MG CAPS 1 po with migraine MAGNESIUM OXIDE 11628803521 Active Alli Frye MD Active MULTIVITAMIN GUMMIES ADULT CHEW MULTIPLE VITAMINS-MINERALS 25422664009 Active Alli Frye MD Active TRANSDERM-SCOP 1.5 MG TRANS PT72 1 patch every 3 days, as needed for motion sickness, start at least 4 hours hours prior to departure SCOPOLAMINE BASE 37980074890 No Longer Active Alli Frye MD Active LEVOTHYROXINE SODIUM 100 MCG TABS 1 pill by mouth daily for thyroid LEVOTHYROXINE SODIUM 35272413402 Active Alli Frye MD Active LEVOTHYROXINE SODIUM 125 MCG ORAL TABS 1 pill by mouth daily, for thyroid LEVOTHYROXINE SODIUM 92751705714 No Longer Active Alli Frye MD Active AMITRIPTYLINE HCL 50 MG ORAL TABS 1 pill by mouth nightly, for migraine prevention AMITRIPTYLINE HCL 87889218987 Active Tamera Mustafa MD PhD Active ZOFRAN ODT 4 MG TBDP 1 pill dissolved by mouth every 4 hours if needed for nausea ONDANSETRON 32556192759 Active Tamera Mustafa MD PhD Active SUMATRIPTAN 20 MG/ACT SOLN 1 spray in one nostril at onset of migraine; may repeat in 2 hours if needed for continued migraine SUMATRIPTAN 96720441822 No Longer Active Tamera Mustafa MD PhD Active ZOFRAN ODT 4 MG TBDP 1 po q6hr PRN Nausea ONDANSETRON 79754475032 No Longer Active Jr Morrow MD Active EXCEDRIN MIGRAINE 250-250-65 MG TABS 1 tab po as needed [id number] 29754041392 Active Jr Morrow MD Active ZOMIG 5 MG TABS Take 1 tablet by mouth daily as needed ZOLMITRIPTAN 97969333891 No Longer Active Jr Morrow MD Active BACTRIM DS 800-160 MG TAB 1 tab by mouth twice daily TRIMETHOPRIM-SULFAMETHOXAZOLE 78678301139 No Longer Active Tamera Mustafa MD PhD Active ZITHROMAX Z-ADALGISA 250 MG TABS 2 today, then 1 daily for 4 days 2013 AZITHROMYCIN 37123006883 No Longer Active Tor Gramajo MD Active MINOCYCLINE HCL 50 MG CAP 1 pill by mouth daily for acne MINOCYCLINE HCL 93311071924 No Longer Active Tor Gramajo MD Active AXERT 12.5 MG TABS 1 tablet by mouth at onset of migraine; may repeat x 1 if headache is still present in 2 hours ALMOTRIPTAN MALATE 72797280917 No Longer Active Tamera Mustafa MD PhD Active ELIMITE 5 % CREA Apply from head to toe including scalp and soles of feet. Wash off after 8 hours. PERMETHRIN 17519742969 No Longer Active Tamera Mustafa MD PhD Active AMOXICILLIN 500 MG TABS 2 PO bid x 10 days AMOXICILLIN 20118295872 No Longer Active Tamera Mustafa MD PhD Active MAXALT 5 MG TABS 1 pill by mouth at start of migraine; may repeat x 1 if no improvement in 2 hours RIZATRIPTAN BENZOATE 80541242725 No Longer Active Tamera Mustafa MD PhD Active BACTRIM DS 800-160 MG TAB 1 tab by mouth twice daily TRIMETHOPRIM-SULFAMETHOXAZOLE 66972129505 No Longer Active Alli Frye MD Active TRI-SPRINTEC 0.18/0.215/0.25 MG-35 MCG TABS 1 po qd as directed NORGESTIM-ETH ESTRAD TRIPHASIC 22332840391 Active Alli Frye MD Active AXERT 6.25 MG TABS 1 pill by mouth at start of migraine; may repeat x 1 in 1 hr if needed ALMOTRIPTAN MALATE 93109675272 No Longer Active Tamera Mustafa MD PhD Active GENERESS FE 0.8-25 MG-MCG CHEW 1 daily NORETHIN-ETH ESTRADIOL-FE 40852121475 No Longer Active Tamera Mustafa MD PhD Active DOXYCYCLINE HYCLATE 50 MG CAP 1 pill by mouth daily for acne 2012 DOXYCYCLINE HYCLATE 33619230484 No Longer Active Tamera Mustafa MD PhD Active AMOXICILLIN 875 MG TABS 1 TWO TIMES A DAY AMOXICILLIN 15257477364 No Longer Active Sera Mcdowell MD Active AMOXICILLIN 875 MG TABS 1 TWO TIMES A DAY AMOXICILLIN 875 MG TABS 727550 AMOXICILLIN Inactive DOXYCYCLINE HYCLATE 50 MG CAP 1 pill by mouth daily for acne 2012 DOXYCYCLINE HYCLATE 50 MG CAP 4404166 DOXYCYCLINE HYCLATE Inactive GENERESS FE 0.8-25 MG-MCG CHEW 1 daily GENERESS FE 0.8-25 MG-MCG CHEW 0355437 NORETHIN-ETH ESTRADIOL-FE Inactive AXERT 6.25 MG TABS 1 pill by mouth at start of migraine; may repeat x 1 in 1 hr if needed AXERT 6.25 MG TABS 592595 ALMOTRIPTAN MALATE Inactive MAXALT 5 MG TABS 1 pill by mouth at start of migraine; may repeat x 1 if no improvement in 2 hours MAXALT 5 MG TABS 517095 RIZATRIPTAN BENZOATE Inactive AMOXICILLIN 500 MG TABS 2 PO bid x 10 days AMOXICILLIN 500 MG TABS 750536 AMOXICILLIN Inactive ELIMITE 5 % CREA Apply from head to toe including scalp and soles of feet. Wash off after 8 hours. ELIMITE 5 % CREA 131608 PERMETHRIN Inactive AXERT 12.5 MG TABS 1 tablet by mouth at onset of migraine; may repeat x 1 if headache is still present in 2 hours AXERT 12.5 MG TABS 163513 ALMOTRIPTAN MALATE Inactive MINOCYCLINE HCL 50 MG CAP 1 pill by mouth daily for acne MINOCYCLINE HCL 50 MG CAP 688499 MINOCYCLINE HCL Inactive ZOMIG 5 MG TABS Take 1 tablet by mouth daily as needed ZOMIG 5 MG TABS 596036 ZOLMITRIPTAN Inactive ZOFRAN ODT 4 MG TBDP 1 po q6hr PRN Nausea ZOFRAN ODT 4 MG TBDP 485906 ONDANSETRON Inactive SUMATRIPTAN 20 MG/ACT SOLN 1 spray in one nostril at onset of migraine; may repeat in 2 hours if needed for continued migraine SUMATRIPTAN 20 MG/ACT SOLN 928898 SUMATRIPTAN Inactive LEVOTHYROXINE SODIUM 125 MCG ORAL TABS 1 pill by mouth daily, for thyroid LEVOTHYROXINE SODIUM 125 MCG ORAL TABS 733944 LEVOTHYROXINE SODIUM Inactive TRANSDERM-SCOP 1.5 MG TRANS PT72 1 patch every 3 days, as needed for motion sickness, start at least 4 hours hours prior to departure TRANSDERM-SCOP 1.5 MG TRANS PT72 SCOPOLAMINE BASE Inactive BACTRIM DS 800-160 MG TAB 1 tab by mouth twice daily BACTRIM DS 800-160 MG TAB 783987 TRIMETHOPRIM-SULFAMETHOXAZOLE Inactive ZITHROMAX Z-ADALGISA 250 MG TABS 2 today, then 1 daily for 4 days 2013 ZITHROMAX Z-ADALGISA 250 MG TABS 7219274 AZITHROMYCIN Inactive BACTRIM DS 800-160 MG TAB 1 tab by mouth twice daily BACTRIM DS 800-160 MG TAB 252486 TRIMETHOPRIM-SULFAMETHOXAZOLE Inactive Advance Directives Directive Description Start Date CONSENT: MEDICATION HISTORY CONSENT FOR MINOR CARE Immunizations Vaccine Administration Date Value Standard Description Adacel (Tetanus, reduced Diphtheria, and acellular Pertussis Immunization) Adacel [[id number]] tetanus toxoid, reduced diphtheria toxoid, and acellular pertussis vaccine, adsorbed chicken pox immunization #2 Varicella Vax varicella virus vaccine chicken pox immunization #1 Varicella Vax varicella virus vaccine oral polio vaccine (OPV) #4 IPV poliovirus vaccine, unspecified formulation MMR (measles, mumps, rubella) virus immunization #2 MMR DPT immunization #5 DTaP oral polio vaccine (OPV) #3 OPV poliovirus vaccine, unspecified formulation MMR (measles, mumps, rubella) virus immunization #1 MMR DPT immunization #4 DTaP hepatitis B vaccine #3 Historical hepatitis B vaccine, unspecified formulation Hemophilus influenza B immunization #3 Historical Haemophilus influenzae type b vaccine, conjugate unspecified formulation oral polio vaccine (OPV) #2 OPV poliovirus vaccine, unspecified formulation DPT immunization #2 DTaP Hemophilus influenza B immunization #2 Historical Haemophilus influenzae type b vaccine, conjugate unspecified formulation DPT immunization #1 DTaP oral polio vaccine (OPV) #1 OPV poliovirus vaccine, unspecified formulation Hemophilus influenza B immunization #1 Historical Haemophilus influenzae type b vaccine, conjugate unspecified formulation hepatitis B vaccine #2 given Historical hepatitis B vaccine, unspecified formulation hepatitis B vaccine #1 given Historical hepatitis B vaccine, unspecified formulation DPT immunization #3 DTaP Diagnostic Results Date Name Value Unit Range Description Chart Maintenance: Outside labs entered on flowsheet - Chemistry prostate specific antigen 3.70 ng/mL Encounters Code Encounter Date Provider Facility CPT-28156 Level 4 Est. Patient 14:47:16 CDT Alli Frye MD [facility] CPT-35228 Level 3 Est. Patient 17:25:12 CDT Tamera Mustafa MD PhD [facility] CPT-57792 Level 3 Est. Patient 15:47:52 CDT Jr Morrow MD [facility] CPT-94083 Level 3 Est. 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 Patient 11:34:16 CDT Gerson EMANUEL [facility] CPT-58120 Level 3 Est. Patient 16:33:58 CDT Edyta Otto APRN [facility] CPT-53558 Level 3 Est. 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 Patient 16:32:34 SPIRAL MACHINE OPERATOR Sera Mcdowell MD [facility] Procedures Code Procedure Name Date Entry Date Standard Description CPT-83260 Abd compl w upright 16:06:21 CDT CPT-PV Prev. Care Visit 12:33:36 SPIRAL MACHINE OPERATOR
--- OUTSIDE RECORDS SUMMARY | 2018-01-18 03:17 | XMS REPORT | Clinical Summary ---
Author Author Admin, WILBERT Organization [facility] Address Unknown Phone Unavailable Allergies, Adverse Reactions, [...] Active Jr Morrow MD Abdominal pain, generalized CARDIAC ARRHYTHMIA, INTERMITTENT ICD-427.9 Inactive Sera Mcdowell [...] Generic Name NDC Status Provider Patient Instruction TRANSDERM-SCOP 1.5 MG TRANS PT72 1 patch every 3 days, as needed for motion sickness, start at least 4 hours hours prior to departure SCOPOLAMINE BASE 21989531781 Active Tamera Mustafa MD PhD Active ZOFRAN ODT 4 MG TBDP 1 pill dissolved by mouth every 4 hours if needed for nausea ONDANSETRON 68812525110 Active Tamera Mustafa MD PhD Active AMITRIPTYLINE HCL 25 MG ORAL TABS 1 pill by mouth nightly, for migraine prevention AMITRIPTYLINE HCL 40617676576 Active Damon Ortiz DO Active LEVOTHYROXINE SODIUM 100 MCG ORAL TABS 1 tab by mouth daily LEVOTHYROXINE SODIUM 10929551724 Active Tamera Mustafa MD PhD Active SUMATRIPTAN 20 MG/ACT SOLN 1 spray in one nostril at onset of migraine; may repeat in 2 hours if needed for continued migraine SUMATRIPTAN 73586666802 No Longer Active Tamera Mustafa MD PhD Active ZOFRAN ODT 4 MG TBDP 1 po q6hr PRN Nausea ONDANSETRON 19597774546 No Longer Active Jr Morrow MD Active EXCEDRIN MIGRAINE 250-250-65 MG TABS 1 tab po as needed [id number] 86588674951 Active Jr Morrow MD Active ZOMIG 5 MG TABS Take 1 tablet by mouth daily as needed ZOLMITRIPTAN 18472316705 No Longer Active Jr Morrow MD Active BACTRIM DS 800-160 MG TAB 1 tab by mouth twice daily TRIMETHOPRIM-SULFAMETHOXAZOLE 58772717789 No Longer Active Tamera Mustafa MD PhD Active ZITHROMAX Z-ADALGISA 250 MG TABS 2 today, then 1 daily for 4 days 2013 AZITHROMYCIN 69209520252 No Longer Active Tor Gramajo MD Active MINOCYCLINE HCL 50 MG CAP 1 pill by mouth daily for acne MINOCYCLINE HCL 25326143352 No Longer Active Tor Gramajo MD Active AXERT 12.5 MG TABS 1 tablet by mouth at onset of migraine; may repeat x 1 if headache is still present in 2 hours ALMOTRIPTAN MALATE 77149264731 No Longer Active Tamera Mustafa MD PhD Active ELIMITE 5 % CREA Apply from head to toe including scalp and soles of feet. Wash off after 8 hours. PERMETHRIN 70483873643 No Longer Active Tamera Mustafa MD PhD Active AMOXICILLIN 500 MG TABS 2 PO bid x 10 days AMOXICILLIN 26270264360 No Longer Active Tamera Mustafa MD PhD Active MAXALT 5 MG TABS 1 pill by mouth at start of migraine; may repeat x 1 if no improvement in 2 hours RIZATRIPTAN BENZOATE 99401017577 No Longer Active Tamera Mustafa MD PhD Active BACTRIM DS 800-160 MG TAB 1 tab by mouth twice daily TRIMETHOPRIM-SULFAMETHOXAZOLE 48627980386 No Longer Active Alli Frye MD Active TRI-SPRINTEC 0.18/0.215/0.25 MG-35 MCG TABS 1 po qd as directed NORGESTIM-ETH ESTRAD TRIPHASIC 06443056449 Active Gerson EMANUEL Active AXERT 6.25 MG TABS 1 pill by mouth at start of migraine; may repeat x 1 in 1 hr if needed ALMOTRIPTAN MALATE 10310451545 No Longer Active Tamera Mustafa MD PhD Active GENERESS FE 0.8-25 MG-MCG CHEW 1 daily NORETHIN-ETH ESTRADIOL-FE 05015433556 No Longer Active Tamera Mustafa MD PhD Active DOXYCYCLINE HYCLATE 50 MG CAP 1 pill by mouth daily for acne 2012 DOXYCYCLINE HYCLATE 72750844732 No Longer Active Tamera Mustafa MD PhD Active AMOXICILLIN 875 MG TABS 1 TWO TIMES A DAY AMOXICILLIN 80451158808 No Longer Active Sera Mcdowell MD Active AMOXICILLIN 875 MG TABS 1 TWO TIMES A DAY AMOXICILLIN 875 MG TABS 122082 AMOXICILLIN Inactive DOXYCYCLINE HYCLATE 50 MG CAP 1 pill by mouth daily for acne 2012 DOXYCYCLINE HYCLATE 50 MG CAP 380585 DOXYCYCLINE HYCLATE Inactive GENERESS FE 0.8-25 MG-MCG CHEW 1 daily GENERESS FE 0.8-25 MG-MCG CHEW 8795287 NORETHIN-ETH ESTRADIOL-FE Inactive AXERT 6.25 MG TABS 1 pill by mouth at start of migraine; may repeat x 1 in 1 hr if needed AXERT 6.25 MG TABS ALMOTRIPTAN MALATE Inactive MAXALT 5 MG TABS 1 pill by mouth at start of migraine; may repeat x 1 if no improvement in 2 hours MAXALT 5 MG TABS 554258 RIZATRIPTAN BENZOATE Inactive AMOXICILLIN 500 MG TABS 2 PO bid x 10 days AMOXICILLIN 500 MG TABS 681508 AMOXICILLIN Inactive ELIMITE 5 % CREA Apply from head to toe including scalp and soles of feet. Wash off after 8 hours. ELIMITE 5 % CREA 463283 PERMETHRIN Inactive AXERT 12.5 MG TABS 1 tablet by mouth at onset of migraine; may repeat x 1 if headache is still present in 2 hours AXERT 12.5 MG TABS ALMOTRIPTAN MALATE Inactive MINOCYCLINE HCL 50 MG CAP 1 pill by mouth daily for acne MINOCYCLINE HCL 50 MG CAP 068844 MINOCYCLINE HCL Inactive ZOMIG 5 MG TABS Take 1 tablet by mouth daily as needed ZOMIG 5 MG TABS 158669 ZOLMITRIPTAN Inactive ZOFRAN ODT 4 MG TBDP 1 po q6hr PRN Nausea ZOFRAN ODT 4 MG TBDP 376378 ONDANSETRON Inactive SUMATRIPTAN 20 MG/ACT SOLN 1 spray in one nostril at onset of migraine; may repeat in 2 hours if needed for continued migraine SUMATRIPTAN 20 MG/ACT SOLN 338430 SUMATRIPTAN Inactive BACTRIM DS 800-160 MG TAB 1 tab by mouth twice daily BACTRIM DS 800-160 MG TAB TRIMETHOPRIM-SULFAMETHOXAZOLE Inactive ZITHROMAX Z-ADALGISA 250 MG TABS 2 today, then 1 daily for 4 days 2013 ZITHROMAX Z-ADALGISA 250 MG TABS 7426130 AZITHROMYCIN Inactive BACTRIM DS 800-160 MG TAB 1 tab by mouth twice daily BACTRIM DS 800-160 MG TAB TRIMETHOPRIM-SULFAMETHOXAZOLE Inactive Advance Directives Directive Description Start Date CONSENT: MEDICATION HISTORY CONSENT FOR MINOR CARE Immunizations Vaccine Administration Date Value Standard Description Adacel (Tetanus, reduced Diphtheria, and acellular Pertussis Immunization) Adacel [[id number]] tetanus toxoid, reduced diphtheria toxoid, and acellular [...] Range Description blood pressure, diastolic - 8462-4 79 mm[Hg] BP bonilla blood pressure, systolic - 8480-6 131 mm[Hg] BP sys height E&M - 8302-2 63.5 [in_us] Bdy height pulse rate E&M - 8867-4 106 /min Heart rate temperature E&M 100.0 [degF] Body temperature weight E&M - 3141-9 129.8 [lb_av] Weight Measured blood pressure, diastolic - 8462-4 76 mm[Hg] BP bonilla blood pressure, systolic - 8480-6 121 mm[Hg] BP sys height E&M - 8302-2 62.25 [in_us] Bdy height pulse rate E&M - 8867-4 120 /min Heart rate temperature E&M 98.9 [degF] Body temperature weight E&M - 3141-9 127 [lb_av] Weight Measured Diagnostic Results Date Name Value Unit Range Description Chart Maintenance: labs entered to [facility] - Chemistry thyroxine, serum, free 1.25 ng/dL thyroid stimulating hormone, serum 0.29 u[iU]/mL Chart Maintenance: Outside labs entered on [facility] - Chemistry prostate specific antigen 3.70 ng/mL Lab Report: CBC W/DIFF, Comp. Metabolic Panel, [facility] [place] - Chemistry sodium, serum 134 mmol/L 567-544 6474/09/10 potassium, serum 4.4 mmol/L 3.5-5.2 chloride, serum 98 mmol/L 98-107 carbon dioxide, venous blood 24.9 mmol/L 21.0-32.0 blood glucose 106 mg/dL 65-110 urea nitrogen, blood 9 mg/dL 7-18 creatinine, serum 0.80 mg/dL 0.60-1.30 alanine aminotransferase (SGPT), serum 18 U/L 12-78 aspartate aminotransferase (SGOT), serum 19 U/L 15-37 alkaline phosphatase, serum 94 U/L 50-130 calcium, serum 9.1 mg/dL 8.5-10.1 bilirubin, serum, total 0.50 mg/dL 0.00-1.00 human chorionic gonadotropin, urine, qualitative (urine test) Negative Negative Lab Report: CBC W/DIFF, Comp. Metabolic Panel, [facility] [place] - Hematology leukocyte count, blood 18.3 10^3/MM^3 10*3/mm3 4.6-10.2 neutrophils as percent of blood leukocytes 88.1 % 42.2-75.2 monocytes as percent of blood leukocytes 4.4 % 1.7-9.3 lymphocytes as percent of blood leukocytes 5.6 % 20.5-51.1 erythrocyte (RBC) count 4.34 10^6/MM^3 10*6/mm3 4.04-5.48 hemoglobin, blood 13.2 g/dL 12.0-16.0 hematocrit, blood 39.8 % 36.0-46.0 mean corpuscular volume, RBC 92 fL 80-97 mean corpuscular hemoglobin, RBC 30.5 pg 27.0-31.2 mean corpuscular hemoglobin concentration, RBC 33.2 G/DL % 31.8- 35.4 red blood cell distribution width 13.0 % 11.6-14.8 platelet count 245 10^3/MM^3 10*3/mm3 142-424 Lab Report: UADIP W/MICRO, AUTO - Chemistry protein, total urine random 2+ mg/dL Negative RBC, urine, dipstick Negative Negative Lab Report: UADIP W/MICRO, AUTO - Urinalysis urobilinogen, urine, semiquantitative (dipstick) 1.0 Normal leukocyte esterase, urine, by dipstick Negative Negative nitrite, urine, semiquantitative Negative Negative glucose, urine, semiquantitative Negative Negative ketones, urine, by test strip 3+ Negative bilirubin, urine Negative Negative urine color [place] Colorless;Lightyellow;Straw;Yellow appearance, urine SlCloudy Clear specific gravity, urine >=1.030 1.000-1.030 pH, urine, semiquantitative 6.0 5.0-8.5 Encounters Code Encounter Date Provider Facility CPT-42016 Level 3 Est. Patient 17:25:12 CDT Tamera Mustafa MD PhD [facility] CPT-02862 Level 3 Est. Patient 15:47:52 CDT Jr Morrow MD [facility] CPT-56183 Level 3 Est. 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 Patient 11:34:16 CDT Gerson EMANUEL [facility] CPT-60534 Level 3 Est. Patient 16:33:58 CDT Edyta Otto APRN [facility] CPT-70933 Level 3 Est. Patient 15:17:40 SENIOR ARCHITECT Sera Mcdowell MD [facility] CPT-69657 Level 3 Est. Patient 16:32:34 SENIOR ARCHITECT Sera Mcdowell MD [facility] Procedures Code Procedure Name Date Entry Date Standard Description CPT-53529 Abd compl w upright 16:06:21 CDT CPT-PV Prev. Care Visit 12:33:36 SENIOR ARCHITECT
--- OUTSIDE RECORDS SUMMARY | 2018-01-18 03:18 | XMS REPORT | Clinical Summary ---
Author Author Admin, WILBERT Organization [employer] Address Unknown Phone Unavailable Allergies, Adverse Reactions, [...] 1 tab po BID prn anxiety ALPRAZOLAM [id number] Active Richa Gonzalez APRN Active QUETIAPINE FUMARATE 25 MG ORAL TABLET take 1 tab po qhs for anxiety QUETIAPINE FUMARATE 99482451202 Active Alli Frye MD Active METOPROLOL TARTRATE 25 MG ORAL TABLET take 1 tab po daily METOPROLOL TARTRATE 70998266484 Active Alli Frye MD Active HYDROXYZINE HCL 50 MG ORAL TABLET 1 tab po BID as needed for anxiety HYDROXYZINE HCL 78651068390 No Longer Active Alli Frye MD Active ZOLOFT 100 MG ORAL TABLET take 2 tabs po qday for mood and headaches. SERTRALINE HCL 43802771295 Active Juliane Melendez LPN Active BUSPIRONE HCL 10 MG ORAL TABLET 1 TAB PO PRN BUSPIRONE HCL 23937989902 No Longer Active Juliane Melendez LPN Active ALPRAZOLAM 0.5 MG ORAL TABLET take 1 tab po qday prn anxiety 2016 ALPRAZOLAM 88873122947 No Longer Active Tatyana Lam Active LORAZEPAM 0.5 MG ORAL TABLET take 1 tab po qday prn anxiety attacks LORAZEPAM 97519407180 No Longer Active Alli Frye MD Active RANITIDINE HCL 300 MG ORAL CAPSULE 1 tablet by mouth daily prn acid reflux RANITIDINE HCL 40573918245 Active Alli Frye MD Active AMITRIPTYLINE HCL 25 MG ORAL TABLET 1 tab by mouth daily at bedtime AMITRIPTYLINE HCL 80199748213 No Longer Active Alli Frye MD Active ZOLOFT 50 MG ORAL TABLET 1 tablet by mouth daily for mood and headache 07/10 SERTRALINE HCL 29141532938 No Longer Active Alli Frye MD Active AMITRIPTYLINE HCL 50 MG ORAL TABLET 1 po qhs for migraine AMITRIPTYLINE HCL 04562540181 No Longer Active Alli Frye MD Active LEVOTHYROXINE SODIUM 112 MCG ORAL TABLET 1 pill by mouth daily for thyroid LEVOTHYROXINE SODIUM 99007989762 Active Alli Frye MD Active AMITRIPTYLINE HCL 50 MG ORAL TABLET 1 pill by mouth nightly, for migraine prevention AMITRIPTYLINE HCL 59421554186 No Longer Active Alli Frye MD Active MAGNESIUM OXIDE 400 MG ORAL CAPSULE 1 po with migraine MAGNESIUM OXIDE 26049923170 No Longer Active Alli Frye MD Active AMITRIPTYLINE HCL 75 MG ORAL TABLET take 1 tab po qhs for migraines. AMITRIPTYLINE HCL 65194120268 No Longer Active Alli Frye MD Active MULTIVITAMIN GUMMIES ADULT ORAL TABLET CHEWABLE MULTIPLE VITAMINS-MINERALS 62978535455 Active Alli Frye MD Active TRANSDERM-SCOP (1.5 MG) 1 MG/3DAYS TRANSDERMAL PATCH 72 HOUR 1 patch every 3 days, as needed for motion sickness, start at least 4 hours hours prior to departure SCOPOLAMINE BASE 46490835887 No Longer Active Alli Frye MD Active LEVOTHYROXINE SODIUM 125 MCG ORAL TABLET 1 pill by mouth daily, for thyroid LEVOTHYROXINE SODIUM 05144181356 No Longer Active Alli Frye MD Active ZOFRAN ODT 4 MG ORAL TABLET DISINTEGRATING 1 pill dissolved by mouth every 4 hours if needed for nausea ONDANSETRON 21072356457 Active Tamera Mustafa MD PhD Active SUMATRIPTAN 20 MG/ACT NASAL SOLUTION 1 spray in one nostril at onset of migraine; may repeat in 2 hours if needed for continued migraine SUMATRIPTAN 58122565215 No Longer Active Tamera Mustafa MD PhD Active ZOFRAN ODT 4 MG ORAL TABLET DISINTEGRATING 1 po q6hr PRN Nausea ONDANSETRON 06613031969 No Longer Active Jr Morrow MD Active EXCEDRIN MIGRAINE 250-250-65 MG ORAL TABLET 1 tab po as needed [id number] 63113691316 Active Jr Morrow MD Active ZOMIG 5 MG ORAL TABLET Take 1 tablet by mouth daily as needed ZOLMITRIPTAN 35730200145 No Longer Active Jr Morrow MD Active BACTRIM DS 800-160 MG ORAL TABLET 1 tab by mouth twice daily 2013 TRIMETHOPRIM-SULFAMETHOXAZOLE 39362770751 No Longer Active Tamera Mustafa MD PhD Active ZITHROMAX Z-ADALGISA 250 MG ORAL TABLET 2 today, then 1 daily for 4 days AZITHROMYCIN 70507506634 No Longer Active Tor Gramajo MD Active MINOCYCLINE HCL 50 MG ORAL CAPSULE 1 pill by mouth daily for acne MINOCYCLINE HCL 68868691542 No Longer Active Tor Gramajo MD Active AXERT 12.5 MG ORAL TABLET 1 tablet by mouth at onset of migraine; may repeat x 1 if headache is still present in 2 hours ALMOTRIPTAN MALATE 90908023941 No Longer Active Tamera Mustafa MD PhD Active ELIMITE 5 % EXTERNAL CREAM Apply from head to toe including scalp and soles of feet. Wash off after 8 hours. PERMETHRIN 62073385341 No Longer Active Tamera Mustafa MD PhD Active AMOXICILLIN 500 MG ORAL TABLET 2 PO bid x 10 days AMOXICILLIN 32760671797 No Longer Active Tamera Mustafa MD PhD Active MAXALT 5 MG ORAL TABLET 1 pill by mouth at start of migraine; may repeat x 1 if no improvement in 2 hours RIZATRIPTAN BENZOATE 22861234967 No Longer Active Tamera Mustafa MD PhD Active BACTRIM DS 800-160 MG ORAL TABLET 1 tab by mouth twice daily 2012 TRIMETHOPRIM-SULFAMETHOXAZOLE 68433065404 No Longer Active Alli Frye MD Active TRI-SPRINTEC 0.18/0.215/0.25 MG-35 MCG ORAL TABLET 1 po qd as directed 06/28 NORGESTIM-ETH ESTRAD TRIPHASIC 45664927326 Active Alli Frye MD Active AXERT 6.25 MG ORAL TABLET 1 pill by mouth at start of migraine; may repeat x 1 in 1 hr if needed ALMOTRIPTAN MALATE 13094389866 No Longer Active Tamera Mustafa MD PhD Active GENERESS FE 0.8-25 MG-MCG ORAL TABLET CHEWABLE 1 daily NORETHIN-ETH ESTRADIOL-FE 54956277934 No Longer Active Tamera Mustafa MD PhD Active DOXYCYCLINE HYCLATE 50 MG ORAL CAPSULE 1 pill by mouth daily for acne DOXYCYCLINE HYCLATE 51586241648 No Longer Active Tamera Mustafa MD PhD Active AMOXICILLIN 875 MG ORAL TABLET 1 TWO TIMES A DAY AMOXICILLIN 89845214199 No Longer Active Sera Mcdowell MD Active AMOXICILLIN 875 MG ORAL TABLET 1 TWO TIMES A DAY AMOXICILLIN 875 MG ORAL TABLET 103361 AMOXICILLIN Inactive DOXYCYCLINE HYCLATE 50 MG ORAL CAPSULE 1 pill by mouth daily for acne DOXYCYCLINE HYCLATE 50 MG ORAL CAPSULE 1239186 DOXYCYCLINE HYCLATE Inactive GENERESS FE 0.8-25 MG-MCG ORAL TABLET CHEWABLE 1 daily GENERESS FE 0.8-25 MG-MCG ORAL TABLET CHEWABLE 6485490 NORETHIN-ETH ESTRADIOL-FE Inactive AXERT 6.25 MG ORAL TABLET 1 pill by mouth at start of migraine; may repeat x 1 in 1 hr if needed AXERT 6.25 MG ORAL TABLET 016638 ALMOTRIPTAN MALATE Inactive MAXALT 5 MG ORAL TABLET 1 pill by mouth at start of migraine; may repeat x 1 if no improvement in 2 hours MAXALT 5 MG ORAL TABLET 498866 RIZATRIPTAN BENZOATE Inactive AMOXICILLIN 500 MG ORAL TABLET 2 PO bid x 10 days AMOXICILLIN 500 MG ORAL TABLET 462195 AMOXICILLIN Inactive ELIMITE 5 % EXTERNAL CREAM Apply from head to toe including scalp and soles of feet. Wash off after 8 hours. ELIMITE 5 % EXTERNAL CREAM 079014 PERMETHRIN Inactive AXERT 12.5 MG ORAL TABLET 1 tablet by mouth at onset of migraine; may repeat x 1 if headache is still present in 2 hours AXERT 12.5 MG ORAL TABLET 593821 ALMOTRIPTAN MALATE Inactive MINOCYCLINE HCL 50 MG ORAL CAPSULE 1 pill by mouth daily for acne MINOCYCLINE HCL 50 MG ORAL CAPSULE 411902 MINOCYCLINE HCL Inactive ZOMIG 5 MG ORAL TABLET Take 1 tablet by mouth daily as needed ZOMIG 5 MG ORAL TABLET 268696 ZOLMITRIPTAN Inactive ZOFRAN ODT 4 MG ORAL TABLET DISINTEGRATING 1 po q6hr PRN Nausea ZOFRAN ODT 4 MG ORAL TABLET DISINTEGRATING 757323 ONDANSETRON Inactive SUMATRIPTAN 20 MG/ACT NASAL SOLUTION 1 spray in one nostril at onset of migraine; may repeat in 2 hours if needed for continued migraine SUMATRIPTAN 20 MG/ACT NASAL SOLUTION 975375 SUMATRIPTAN Inactive LEVOTHYROXINE SODIUM 125 MCG ORAL TABLET 1 pill by mouth daily, for thyroid LEVOTHYROXINE SODIUM 125 MCG ORAL TABLET 804287 LEVOTHYROXINE SODIUM Inactive TRANSDERM-SCOP (1.5 MG) 1 MG/3DAYS TRANSDERMAL PATCH 72 HOUR 1 patch every 3 days, as needed for motion sickness, start at least 4 hours hours prior to departure TRANSDERM-SCOP (1.5 MG) 1 MG/3DAYS TRANSDERMAL PATCH 72 HOUR SCOPOLAMINE BASE Inactive AMITRIPTYLINE HCL 75 MG ORAL TABLET take 1 tab po qhs for migraines. AMITRIPTYLINE HCL 75 MG ORAL TABLET 452969 AMITRIPTYLINE HCL Inactive MAGNESIUM OXIDE 400 MG ORAL CAPSULE 1 po with migraine MAGNESIUM OXIDE 400 MG ORAL CAPSULE 326516 MAGNESIUM OXIDE Inactive AMITRIPTYLINE HCL 50 MG ORAL TABLET 1 pill by mouth nightly, for migraine prevention AMITRIPTYLINE HCL 50 MG ORAL TABLET 396073 AMITRIPTYLINE HCL Inactive AMITRIPTYLINE HCL 50 MG ORAL TABLET 1 po qhs for migraine AMITRIPTYLINE HCL 50 MG ORAL TABLET 899223 AMITRIPTYLINE HCL Inactive ZOLOFT 50 MG ORAL TABLET 1 tablet by mouth daily for mood and headache 07/10 ZOLOFT 50 MG ORAL TABLET 024958 SERTRALINE HCL Inactive AMITRIPTYLINE HCL 25 MG ORAL TABLET 1 tab by mouth daily at bedtime AMITRIPTYLINE HCL 25 MG ORAL TABLET 944777 AMITRIPTYLINE HCL Inactive LORAZEPAM 0.5 MG ORAL TABLET take 1 tab po qday prn anxiety attacks LORAZEPAM 0.5 MG ORAL TABLET 904936 LORAZEPAM Inactive ALPRAZOLAM 0.5 MG ORAL TABLET take 1 tab po qday prn anxiety 2016 ALPRAZOLAM 0.5 MG ORAL TABLET 187173 ALPRAZOLAM Inactive BUSPIRONE HCL 10 MG ORAL TABLET 1 TAB PO PRN BUSPIRONE HCL 10 MG ORAL TABLET 604863 BUSPIRONE HCL Inactive HYDROXYZINE HCL 50 MG ORAL TABLET 1 tab po BID as needed for anxiety HYDROXYZINE HCL 50 MG ORAL TABLET 866174 HYDROXYZINE HCL Inactive BACTRIM DS 800-160 MG ORAL TABLET 1 tab by mouth twice daily 2012 BACTRIM DS 800-160 MG ORAL TABLET 173966 TRIMETHOPRIM- SULFAMETHOXAZOLE Inactive ZITHROMAX Z-ADALGISA 250 MG ORAL TABLET 2 today, then 1 daily for 4 days ZITHROMAX Z-ADALGISA 250 MG ORAL TABLET 898079 AZITHROMYCIN Inactive BACTRIM DS 800-160 MG ORAL TABLET 1 tab by mouth twice daily 2013 BACTRIM DS 800-160 MG ORAL TABLET 255522 TRIMETHOPRIM- SULFAMETHOXAZOLE Inactive Advance Directives Directive Description Start Date CONSENT: MEDICATION HISTORY CONSENT FOR MINOR CARE Immunizations Vaccine Administration Date Value Standard Description Adacel (Tetanus, reduced Diphtheria, and acellular Pertussis Immunization) Adacel [[id number]] tetanus toxoid, reduced diphtheria toxoid, and acellular [...] 0.36-3.74 Encounters Code Encounter Date Provider Facility CPT-84924 Level 4 Est. 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-84172 Level 4 Est. Patient 23:05:57 CDT Alli Frye MD [facility]-48565 Level 4 Est. Patient 12:25:34 CDT Alli Frye MD [facility]-38776 Level 4 Est. Patient 13:40:53 CDT Alli Frye MD [facility]-53344 Level 4 Est. Patient 13:18:45 PORTABLE IRRIGATION OPERATOR Alli Frye MD [facility]-65436 Level 4 Est. Patient 11:32:52 PORTABLE IRRIGATION OPERATOR Alli Frye MD [facility]-79720 Level 4 Est. Patient 14:47:16 CDT Alli Frye MD [facility]-13611 Level 3 Est. Patient 17:25:12 CDT Tamera Mustafa MD, PhD [facility]-74980 Level 3 Est. Patient 15:47:52 CDT Jr Morrow MD [facility] CPT-14310 Level 3 Est. Patient 17:07:09 PORTABLE IRRIGATION OPERATOR Tor Gramajo MD [facility] CPT-44916 Level 3 Est. Patient 11:34:16 CDT Gerson EMANUEL [facility]-25346 Level 3 Est. Patient 16:33:58 CDT Edyta Otto APRN [facility] CPT-65257 Level 3 Est. Patient 15:17:40 PORTABLE IRRIGATION OPERATOR Sera Mcdowell MD [facility] CPT-43096 Level 3 Est. Patient 16:32:34 PORTABLE IRRIGATION OPERATOR Sera Mcdowell MD [facility] Procedures Code Procedure Name Date Entry Date Standard Description CPT-21123 First Vx - Ix admin via ID IM or jet injects without counseling by physician 15:09:59 CDT CPT-83376 Menveo Intramuscular Solution Reconstituted 15:09:59 CDT CPT-12020 Meningococcal Conjugate Vacine (Menactra) 12:25:34 CDT CPT-56131 Abd compl w upright 16:06:21 CDT CPT-PV Prev. Care Visit 12:33:36 PORTABLE IRRIGATION OPERATOR
--- OUTSIDE RECORDS SUMMARY | 2018-01-18 03:18 | XMS REPORT | Clinical Summary ---
Author Author Admin, WILBERT [facility] Address Unknown Phone Unavailable Allergies, Adverse [...] hours hours prior to departure SCOPOLAMINE BASE 54852302439 Active Tamera Mustafa MD PhD Active ZOFRAN ODT 4 MG TBDP 1 pill dissolved by mouth every 4 hours if needed for nausea ONDANSETRON 38735564359 Active Tamera Mustafa MD PhD Active AMITRIPTYLINE HCL 25 MG ORAL TABS 1 pill by mouth nightly, for migraine prevention AMITRIPTYLINE HCL 72647827505 Active Damon Ortiz DO Active LEVOTHYROXINE SODIUM 100 MCG ORAL TABS 1 tab by mouth daily LEVOTHYROXINE SODIUM 79782658931 Active Tamera Mustafa MD PhD Active SUMATRIPTAN 20 MG/ACT SOLN 1 spray in one nostril at onset of migraine; may repeat in 2 hours if needed for continued migraine SUMATRIPTAN 76458912200 No Longer Active Tamera Mustafa MD PhD Active ZOFRAN ODT 4 MG TBDP 1 po q6hr PRN Nausea ONDANSETRON 94758316693 No Longer Active Jr Morrow MD Active EXCEDRIN MIGRAINE 250-250-65 MG TABS 1 tab po as needed [id number] 41377794580 Active Jr Morrow MD Active ZOMIG 5 MG TABS Take 1 tablet by mouth daily as needed ZOLMITRIPTAN 55711816930 No Longer Active Jr Morrow MD Active BACTRIM DS 800-160 MG TAB 1 tab by mouth twice daily TRIMETHOPRIM-SULFAMETHOXAZOLE 90271059869 No Longer Active Tamera Mustafa MD PhD Active ZITHROMAX Z-ADALGISA 250 MG TABS 2 today, then 1 daily for 4 days 2013 AZITHROMYCIN 29546252498 No Longer Active Tor Gramajo MD Active MINOCYCLINE HCL 50 MG CAP 1 pill by mouth daily for acne MINOCYCLINE HCL 97577247671 No Longer Active Tor Gramajo MD Active AXERT 12.5 MG TABS 1 tablet by mouth at onset of migraine; may repeat x 1 if headache is still present in 2 hours ALMOTRIPTAN MALATE 31527099482 No Longer Active Tamera Mustafa MD PhD Active ELIMITE 5 % CREA Apply from head to toe including scalp and soles of feet. Wash off after 8 hours. PERMETHRIN 28479597918 No Longer Active Tamera Mustafa MD PhD Active AMOXICILLIN 500 MG TABS 2 PO bid x 10 days AMOXICILLIN 36755223187 No Longer Active Tamera Mustafa MD PhD Active MAXALT 5 MG TABS 1 pill by mouth at start of migraine; may repeat x 1 if no improvement in 2 hours RIZATRIPTAN BENZOATE 64019924783 No Longer Active Tamera Mustafa MD PhD Active BACTRIM DS 800-160 MG TAB 1 tab by mouth twice daily TRIMETHOPRIM-SULFAMETHOXAZOLE 23594834196 No Longer Active Alli Frye MD Active TRI-SPRINTEC 0.18/0.215/0.25 MG-35 MCG TABS 1 po qd as directed NORGESTIM-ETH ESTRAD TRIPHASIC 15190454658 Active Gerson EMANUEL Active AXERT 6.25 MG TABS 1 pill by mouth at start of migraine; may repeat x 1 in 1 hr if needed ALMOTRIPTAN MALATE 80095406424 No Longer Active Tamera Mustafa MD PhD Active GENERESS FE 0.8-25 MG-MCG CHEW 1 daily NORETHIN-ETH ESTRADIOL-FE 40639564505 No Longer Active Tamera Mustafa MD PhD Active DOXYCYCLINE HYCLATE 50 MG CAP 1 pill by mouth daily for acne 2012 DOXYCYCLINE HYCLATE 76717633518 No Longer Active Tamera Mustafa MD PhD Active AMOXICILLIN 875 MG TABS 1 TWO TIMES A DAY AMOXICILLIN 67842627304 No Longer Active Sera Mcdowell MD Active AMOXICILLIN 875 MG TABS 1 TWO TIMES A DAY AMOXICILLIN 875 MG TABS 566602 AMOXICILLIN Inactive DOXYCYCLINE HYCLATE 50 MG CAP 1 pill by mouth daily for acne 2012 DOXYCYCLINE HYCLATE 50 MG CAP 226732 DOXYCYCLINE HYCLATE Inactive GENERESS FE 0.8-25 MG-MCG CHEW 1 daily GENERESS FE 0.8-25 MG-MCG CHEW NORETHIN-ETH ESTRADIOL-FE Inactive AXERT 6.25 MG TABS 1 pill by mouth at start of migraine; may repeat x 1 in 1 hr if needed AXERT 6.25 MG TABS ALMOTRIPTAN MALATE Inactive MAXALT 5 MG TABS 1 pill by mouth at start of migraine; may repeat x 1 if no improvement in 2 hours MAXALT 5 MG TABS 079122 RIZATRIPTAN BENZOATE Inactive AMOXICILLIN 500 MG TABS 2 PO bid x 10 days AMOXICILLIN 500 MG TABS 780042 AMOXICILLIN Inactive ELIMITE 5 % CREA Apply from head to toe including scalp and soles of feet. Wash off after 8 hours. ELIMITE 5 % CREA 630061 PERMETHRIN Inactive AXERT 12.5 MG TABS 1 tablet by mouth at onset of migraine; may repeat x 1 if headache is still present in 2 hours AXERT 12.5 MG TABS ALMOTRIPTAN MALATE Inactive MINOCYCLINE HCL 50 MG CAP 1 pill by mouth daily for acne MINOCYCLINE HCL 50 MG CAP 075003 MINOCYCLINE HCL Inactive ZOMIG 5 MG TABS Take 1 tablet by mouth daily as needed ZOMIG 5 MG TABS 213685 ZOLMITRIPTAN Inactive ZOFRAN ODT 4 MG TBDP 1 po q6hr PRN Nausea ZOFRAN ODT 4 MG TBDP 496678 ONDANSETRON Inactive SUMATRIPTAN 20 MG/ACT SOLN 1 spray in one nostril at onset of migraine; may repeat in 2 hours if needed for continued migraine SUMATRIPTAN 20 MG/ACT SOLN 389624 SUMATRIPTAN Inactive BACTRIM DS 800-160 MG TAB 1 tab by mouth twice daily BACTRIM DS 800-160 MG TAB TRIMETHOPRIM-SULFAMETHOXAZOLE Inactive ZITHROMAX Z-ADALGISA 250 MG TABS 2 today, then 1 daily for 4 days 2013 ZITHROMAX Z-ADALGISA 250 MG TABS 4810984 AZITHROMYCIN Inactive BACTRIM DS 800-160 MG TAB 1 tab by mouth twice daily BACTRIM DS 800-160 MG TAB TRIMETHOPRIM-SULFAMETHOXAZOLE Inactive Advance Directives Directive Description Start Date CONSENT: MEDICATION HISTORY CONSENT FOR MINOR CARE Immunizations Vaccine Administration Date Value Standard Description Adacel (Tetanus, reduced Diphtheria, and acellular Pertussis Immunization) Adacel [[id number]] tetanus toxoid, reduced diphtheria toxoid, and acellular [...] Range Description Chart Maintenance: labs entered to flowsheet - Chemistry thyroxine, serum, free 1.25 ng/dL thyroid stimulating hormone, serum 0.29 u[iU]/mL Lab Report: [place] W/DIFF, [place] [facility] [place] Chemistry sodium, serum 134 mmol/L 095-790 4089/09/10 potassium, serum 4.4 mmol/L 3.5-5.2 chloride, serum [...] Lab Report: CBC W/DIFF, Comp. [place] [facility] [place] H[place] leukocyte count, blood 18.3 10^3/MM^3 [...] Negative bilirubin, urine Negative Negative urine color [place] Colorless;Lightyellow;Straw;Yellow appearance, urine SlCloudy Clear specific gravity, urine >=1.030 1.000-1.030 pH, urine, semiquantitative 6.0 5.0-8.5 Encounters Code Encounter Date Provider Facility CPT-25850 Level 3 Est. Patient 17:25:12 CDT Tamera Mustafa MD PhD [facility] CPT-70745 Level 3 Est. Patient 15:47:52 CDT Jr Morrow MD [facility] CPT-43076 Level 3 Est. Patient 17:07:09 TRANSPORTER DRIVER Tor Gramajo MD [facility] CPT-36153 Level 3 Est. Patient 11:34:16 CDT Gerson EMANUEL [facility] CPT-63764 Level 3 Est. Patient 16:33:58 CDT Edyta Otto APRN [facility] CPT-40224 Level 3 Est. Patient 15:17:40 TRANSPORTER DRIVER Sera Mcdowell MD [facility] CPT-88086 Level 3 Est. Patient 16:32:34 TRANSPORTER DRIVER Sera Mcdowell MD [facility] Procedures Code Procedure Name Date Entry Date Standard Description CPT-37608 Abd compl w upright 16:06:21 CDT CPT-PV Prev. Care Visit 12:33:36 TRANSPORTER DRIVER
--- OUTSIDE RECORDS SUMMARY | 2018-01-18 03:19 | XMS REPORT | Clinical Summary ---
Author Author Admin, WILBERT Organization [facility] Address Unknown Phone Unavailable Allergies, Adverse Reactions, [...] 1 tab po BID prn anxiety ALPRAZOLAM 71470210024 Active Alli Frye MD Active QUETIAPINE FUMARATE 25 MG ORAL TABLET take 1 tab po qhs for anxiety QUETIAPINE FUMARATE 32918701111 Active Alli Frye MD Active METOPROLOL TARTRATE 25 MG ORAL TABLET take 1 tab po daily METOPROLOL TARTRATE 03800968207 Active Alli Frye MD Active HYDROXYZINE HCL 50 MG ORAL TABLET 1 tab po BID as needed for anxiety HYDROXYZINE HCL 10974482437 No Longer Active Alli Frye MD Active ZOLOFT 100 MG ORAL TABLET take 2 tabs po qday for mood and headaches. SERTRALINE HCL 70936572102 Active Juliane Melendez LPN Active BUSPIRONE HCL 10 MG ORAL TABLET 1 TAB PO PRN BUSPIRONE HCL 36370323750 No Longer Active Juliane Melendez LPN Active ALPRAZOLAM 0.5 MG ORAL TABLET take 1 tab po qday prn anxiety 2016 ALPRAZOLAM 14349729894 No Longer Active Tatyana Lam Active LORAZEPAM 0.5 MG ORAL TABLET take 1 tab po qday prn anxiety attacks LORAZEPAM 58363229132 No Longer Active Alli Frye MD Active RANITIDINE HCL 300 MG ORAL CAPSULE 1 tablet by mouth daily prn acid reflux RANITIDINE HCL 83751505560 Active Alli Frye MD Active AMITRIPTYLINE HCL 25 MG ORAL TABLET 1 tab by mouth daily at bedtime AMITRIPTYLINE HCL 57474547786 No Longer Active Alli Frye MD Active ZOLOFT 50 MG ORAL TABLET 1 tablet by mouth daily for mood and headache 07/10 SERTRALINE HCL 78360721102 No Longer Active Alli Frye MD Active AMITRIPTYLINE HCL 50 MG ORAL TABLET 1 po qhs for migraine AMITRIPTYLINE HCL 85486600916 No Longer Active Alli Frye MD Active LEVOTHYROXINE SODIUM 112 MCG ORAL TABLET 1 pill by mouth daily for thyroid LEVOTHYROXINE SODIUM 25887466128 Active Alli Frye MD Active AMITRIPTYLINE HCL 50 MG ORAL TABLET 1 pill by mouth nightly, for migraine prevention AMITRIPTYLINE HCL 33290176065 No Longer Active Alli Frye MD Active MAGNESIUM OXIDE 400 MG ORAL CAPSULE 1 po with migraine MAGNESIUM OXIDE 68042660643 No Longer Active Alli Frye MD Active AMITRIPTYLINE HCL 75 MG ORAL TABLET take 1 tab po qhs for migraines. AMITRIPTYLINE HCL 73445566718 No Longer Active lAli Frye MD Active MULTIVITAMIN GUMMIES ADULT ORAL TABLET CHEWABLE MULTIPLE VITAMINS-MINERALS 54464020346 Active Alli Frye MD Active TRANSDERM-SCOP (1.5 MG) 1 MG/3DAYS TRANSDERMAL PATCH 72 HOUR 1 patch every 3 days, as needed for motion sickness, start at least 4 hours hours prior to departure SCOPOLAMINE BASE 79175083862 No Longer Active Alli Frye MD Active LEVOTHYROXINE SODIUM 125 MCG ORAL TABLET 1 pill by mouth daily, for thyroid LEVOTHYROXINE SODIUM 11659812016 No Longer Active Alli Frye MD Active ZOFRAN ODT 4 MG ORAL TABLET DISINTEGRATING 1 pill dissolved by mouth every 4 hours if needed for nausea ONDANSETRON 52214481841 Active Tamera Mustafa MD PhD Active SUMATRIPTAN 20 MG/ACT NASAL SOLUTION 1 spray in one nostril at onset of migraine; may repeat in 2 hours if needed for continued migraine SUMATRIPTAN 39773941671 No Longer Active Tamera Mustafa MD PhD Active ZOFRAN ODT 4 MG ORAL TABLET DISINTEGRATING 1 po q6hr PRN Nausea ONDANSETRON 72825337777 No Longer Active Jr Morrow MD Active EXCEDRIN MIGRAINE 250-250-65 MG ORAL TABLET 1 tab po as needed [id number] 04501415311 Active Jr Morrow MD Active ZOMIG 5 MG ORAL TABLET Take 1 tablet by mouth daily as needed ZOLMITRIPTAN 46068798382 No Longer Active Jr Morrow MD Active BACTRIM DS 800-160 MG ORAL TABLET 1 tab by mouth twice daily 2013 TRIMETHOPRIM-SULFAMETHOXAZOLE 94143732931 No Longer Active Tamera Mustafa MD PhD Active ZITHROMAX Z-ADALGISA 250 MG ORAL TABLET 2 today, then 1 daily for 4 days AZITHROMYCIN 85764130711 No Longer Active Tor Gramajo MD Active MINOCYCLINE HCL 50 MG ORAL CAPSULE 1 pill by mouth daily for acne MINOCYCLINE HCL 49109535660 No Longer Active Tor Gramajo MD Active AXERT 12.5 MG ORAL TABLET 1 tablet by mouth at onset of migraine; may repeat x 1 if headache is still present in 2 hours ALMOTRIPTAN MALATE 76182332708 No Longer Active Tamera Mustafa MD PhD Active ELIMITE 5 % EXTERNAL CREAM Apply from head to toe including scalp and soles of feet. Wash off after 8 hours. PERMETHRIN 07864345434 No Longer Active Tamera Mustafa MD PhD Active AMOXICILLIN 500 MG ORAL TABLET 2 PO bid x 10 days AMOXICILLIN 99689138791 No Longer Active Tamera Mustafa MD PhD Active MAXALT 5 MG ORAL TABLET 1 pill by mouth at start of migraine; may repeat x 1 if no improvement in 2 hours RIZATRIPTAN BENZOATE 75255420340 No Longer Active Tamera Mustafa MD PhD Active BACTRIM DS 800-160 MG ORAL TABLET 1 tab by mouth twice daily 2012 TRIMETHOPRIM-SULFAMETHOXAZOLE 60265228866 No Longer Active Alli Frye MD Active TRI-SPRINTEC 0.18/0.215/0.25 MG-35 MCG ORAL TABLET 1 po qd as directed 06/28 NORGESTIM-ETH ESTRAD TRIPHASIC 73709887339 Active Alli Frye MD Active AXERT 6.25 MG ORAL TABLET 1 pill by mouth at start of migraine; may repeat x 1 in 1 hr if needed ALMOTRIPTAN MALATE 85648275833 No Longer Active Tamera Mustafa MD PhD Active GENERESS FE 0.8-25 MG-MCG ORAL TABLET CHEWABLE 1 daily NORETHIN-ETH ESTRADIOL-FE 43269188611 No Longer Active Tamera Mustafa MD PhD Active DOXYCYCLINE HYCLATE 50 MG ORAL CAPSULE 1 pill by mouth daily for acne DOXYCYCLINE HYCLATE 19865609698 No Longer Active Tamera Mustafa MD PhD Active AMOXICILLIN 875 MG ORAL TABLET 1 TWO TIMES A DAY AMOXICILLIN 51307938016 No Longer Active Sera Mcdowell MD Active AMOXICILLIN 875 MG ORAL TABLET 1 TWO TIMES A DAY AMOXICILLIN 875 MG ORAL TABLET 433289 AMOXICILLIN Inactive DOXYCYCLINE HYCLATE 50 MG ORAL CAPSULE 1 pill by mouth daily for acne DOXYCYCLINE HYCLATE 50 MG ORAL CAPSULE 1658996 DOXYCYCLINE HYCLATE Inactive GENERESS FE 0.8-25 MG-MCG ORAL TABLET CHEWABLE 1 daily GENERESS FE 0.8-25 MG-MCG ORAL TABLET CHEWABLE 7101422 NORETHIN-ETH ESTRADIOL-FE Inactive AXERT 6.25 MG ORAL TABLET 1 pill by mouth at start of migraine; may repeat x 1 in 1 hr if needed AXERT 6.25 MG ORAL TABLET 005788 ALMOTRIPTAN MALATE Inactive MAXALT 5 MG ORAL TABLET 1 pill by mouth at start of migraine; may repeat x 1 if no improvement in 2 hours MAXALT 5 MG ORAL TABLET 784729 RIZATRIPTAN BENZOATE Inactive AMOXICILLIN 500 MG ORAL TABLET 2 PO bid x 10 days AMOXICILLIN 500 MG ORAL TABLET 928934 AMOXICILLIN Inactive ELIMITE 5 % EXTERNAL CREAM Apply from head to toe including scalp and soles of feet. Wash off after 8 hours. ELIMITE 5 % EXTERNAL CREAM 850650 PERMETHRIN Inactive AXERT 12.5 MG ORAL TABLET 1 tablet by mouth at onset of migraine; may repeat x 1 if headache is still present in 2 hours AXERT 12.5 MG ORAL TABLET 500568 ALMOTRIPTAN MALATE Inactive MINOCYCLINE HCL 50 MG ORAL CAPSULE 1 pill by mouth daily for acne MINOCYCLINE HCL 50 MG ORAL CAPSULE 524436 MINOCYCLINE HCL Inactive ZOMIG 5 MG ORAL TABLET Take 1 tablet by mouth daily as needed ZOMIG 5 MG ORAL TABLET 430784 ZOLMITRIPTAN Inactive ZOFRAN ODT 4 MG ORAL TABLET DISINTEGRATING 1 po q6hr PRN Nausea ZOFRAN ODT 4 MG ORAL TABLET DISINTEGRATING 778596 ONDANSETRON Inactive SUMATRIPTAN 20 MG/ACT NASAL SOLUTION 1 spray in one nostril at onset of migraine; may repeat in 2 hours if needed for continued migraine SUMATRIPTAN 20 MG/ACT NASAL SOLUTION 004266 SUMATRIPTAN Inactive LEVOTHYROXINE SODIUM 125 MCG ORAL TABLET 1 pill by mouth daily, for thyroid LEVOTHYROXINE SODIUM 125 MCG ORAL TABLET 607044 LEVOTHYROXINE SODIUM Inactive TRANSDERM-SCOP (1.5 MG) 1 MG/3DAYS TRANSDERMAL PATCH 72 HOUR 1 patch every 3 days, as needed for motion sickness, start at least 4 hours hours prior to departure TRANSDERM-SCOP (1.5 MG) 1 MG/3DAYS TRANSDERMAL PATCH 72 HOUR SCOPOLAMINE BASE Inactive AMITRIPTYLINE HCL 75 MG ORAL TABLET take 1 tab po qhs for migraines. AMITRIPTYLINE HCL 75 MG ORAL TABLET 606498 AMITRIPTYLINE HCL Inactive MAGNESIUM OXIDE 400 MG ORAL CAPSULE 1 po with migraine MAGNESIUM OXIDE 400 MG ORAL CAPSULE 672130 MAGNESIUM OXIDE Inactive AMITRIPTYLINE HCL 50 MG ORAL TABLET 1 pill by mouth nightly, for migraine prevention AMITRIPTYLINE HCL 50 MG ORAL TABLET 381640 AMITRIPTYLINE HCL Inactive AMITRIPTYLINE HCL 50 MG ORAL TABLET 1 po qhs for migraine AMITRIPTYLINE HCL 50 MG ORAL TABLET 837963 AMITRIPTYLINE HCL Inactive ZOLOFT 50 MG ORAL TABLET 1 tablet by mouth daily for mood and headache 07/10 ZOLOFT 50 MG ORAL TABLET 646756 SERTRALINE HCL Inactive AMITRIPTYLINE HCL 25 MG ORAL TABLET 1 tab by mouth daily at bedtime AMITRIPTYLINE HCL 25 MG ORAL TABLET 806936 AMITRIPTYLINE HCL Inactive LORAZEPAM 0.5 MG ORAL TABLET take 1 tab po qday prn anxiety attacks LORAZEPAM 0.5 MG ORAL TABLET 038003 LORAZEPAM Inactive ALPRAZOLAM 0.5 MG ORAL TABLET take 1 tab po qday prn anxiety 2016 ALPRAZOLAM 0.5 MG ORAL TABLET 447766 ALPRAZOLAM Inactive BUSPIRONE HCL 10 MG ORAL TABLET 1 TAB PO PRN BUSPIRONE HCL 10 MG ORAL TABLET 797236 BUSPIRONE HCL Inactive HYDROXYZINE HCL 50 MG ORAL TABLET 1 tab po BID as needed for anxiety HYDROXYZINE HCL 50 MG ORAL TABLET 011208 HYDROXYZINE HCL Inactive BACTRIM DS 800-160 MG ORAL TABLET 1 tab by mouth twice daily 2012 BACTRIM DS 800-160 MG ORAL TABLET 134535 TRIMETHOPRIM- SULFAMETHOXAZOLE Inactive ZITHROMAX Z-ADALGISA 250 MG ORAL TABLET 2 today, then 1 daily for 4 days ZITHROMAX Z-ADALGISA 250 MG ORAL TABLET 489869 AZITHROMYCIN Inactive BACTRIM DS 800-160 MG ORAL TABLET 1 tab by mouth twice daily 2013 BACTRIM DS 800-160 MG ORAL TABLET 641489 TRIMETHOPRIM- SULFAMETHOXAZOLE Inactive Advance Directives Directive Description Start Date CONSENT: MEDICATION HISTORY CONSENT FOR MINOR CARE Immunizations Vaccine Administration Date Value Standard Description Adacel (Tetanus, reduced Diphtheria, and acellular Pertussis Immunization) Adacel [[id number]] tetanus toxoid, reduced diphtheria toxoid, and acellular [...] temperature weight E&M 136 [lb_av] Weight Measured Diagnostic Results Date Name Value Unit Range Description Lab Report: Free Thyroxine (L), Thyroid Stimulating Hormone (L) - Chemistry TSH 1.28 m[iU]/mL 0.36-3.74 thyroxine, serum, free 1.42 ng/dL 0.78-1.34 Encounters Code Encounter Date Provider Facility CPT-89170 Level 4 Est. 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 Patient 23:05:57 CDT Alli Frye MD [facility] CPT-98488 Level 4 Est. Patient 12:25:34 CDT Alli Frye MD [facility] CPT-72560 Level 4 Est. Patient 13:40:53 CDT Alli Frye MD [facility] CPT-02818 Level 4 Est. 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 Patient 14:47:16 CDT Alli Frye MD [facility] CPT-57054 Level 3 Est. Patient 17:25:12 CDT Tamera Mustafa MD PhD [facility] CPT-43494 Level 3 Est. Patient 15:47:52 CDT Jr Morrow MD [facility] CPT-55650 Level 3 Est. 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 Patient 11:34:16 CDT Gerson EMANUEL [facility] CPT-75570 Level 3 Est. Patient 16:33:58 CDT Edyta Otto APRN [facility] CPT-24194 Level 3 Est. 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 Care Visit 12:33:36 WINDING RACK OPERATOR
--- OUTSIDE RECORDS SUMMARY | 2018-01-18 03:19 | XMS REPORT | Clinical Summary ---
Author Author Admin, QIE Organization [facility] Address Unknown Phone Unavailable Allergies, Adverse [...] 1 tab po qday prn anxiety ALPRAZOLAM 53193185957 Active Alli Frye MD Active LORAZEPAM 0.5 MG TAB take 1 tab po qday prn anxiety attacks 11/04 LORAZEPAM 90872761596 No Longer Active Alli Frye MD Active RANITIDINE HCL 300 MG CAPS 1 tablet by mouth daily prn acid reflux RANITIDINE HCL 29466649027 Active Alli Frye MD Active METOPROLOL TARTRATE 25 MG ORAL TABS take 1 tab po BID METOPROLOL TARTRATE 02807391501 Active Alli Frye MD Active AMITRIPTYLINE HCL 25 MG TAB 1 tab by mouth daily at bedtime 11/04 AMITRIPTYLINE HCL 08886965007 No Longer Active Alli Frye MD Active ZOLOFT 50 MG TAB 1 tablet by mouth daily for mood and headache SERTRALINE HCL 15354088809 No Longer Active Alli Frye MD Active AMITRIPTYLINE HCL 50 MG TAB 1 po qhs for migraine AMITRIPTYLINE HCL 07656725924 No Longer Active Alli Frye MD Active ZOLOFT 100 MG TAB take 1 tab po qday for mood and headaches. SERTRALINE HCL 38117335958 Active Alli Frye MD Active LEVOTHYROXINE SODIUM 112 MCG TABS 1 pill by mouth daily for thyroid LEVOTHYROXINE SODIUM 01485809842 Active Alli Frye MD Active AMITRIPTYLINE HCL 50 MG ORAL TABS 1 pill by mouth nightly, for migraine prevention AMITRIPTYLINE HCL 58211723218 No Longer Active Alli Frye MD Active MAGNESIUM OXIDE 400 MG CAPS 1 po with migraine MAGNESIUM OXIDE 67610229049 No Longer Active Alli Frye MD Active AMITRIPTYLINE HCL 75 MG TAB take 1 tab po qhs for migraines. 2016 AMITRIPTYLINE HCL 38927434219 No Longer Active Alli Frye MD Active MULTIVITAMIN GUMMIES ADULT CHEW MULTIPLE VITAMINS-MINERALS 80453599109 Active Alli Frye MD Active TRANSDERM-SCOP 1.5 MG TRANS PT72 1 patch every 3 days, as needed for motion sickness, start at least 4 hours hours prior to departure SCOPOLAMINE BASE 31589387865 No Longer Active Alli Frye MD Active LEVOTHYROXINE SODIUM 125 MCG ORAL TABS 1 pill by mouth daily, for thyroid LEVOTHYROXINE SODIUM 49154122159 No Longer Active Alil Frye MD Active ZOFRAN ODT 4 MG TBDP 1 pill dissolved by mouth every 4 hours if needed for nausea ONDANSETRON 47868065220 Active Tamera Mustafa MD PhD Active SUMATRIPTAN 20 MG/ACT SOLN 1 spray in one nostril at onset of migraine; may repeat in 2 hours if needed for continued migraine SUMATRIPTAN 78124803888 No Longer Active Tamera Mustafa MD PhD Active ZOFRAN ODT 4 MG TBDP 1 po q6hr PRN Nausea ONDANSETRON 39572644396 No Longer Active Jr Morrow MD Active EXCEDRIN MIGRAINE 250-250-65 MG TABS 1 tab po as needed [id number] 02444160284 Active Jr Morrow MD Active ZOMIG 5 MG TABS Take 1 tablet by mouth daily as needed ZOLMITRIPTAN 96802184305 No Longer Active Jr Morrow MD Active BACTRIM DS 800-160 MG TAB 1 tab by mouth twice daily TRIMETHOPRIM-SULFAMETHOXAZOLE 83753405609 No Longer Active Tamera Mustafa MD PhD Active ZITHROMAX Z-ADALGISA 250 MG TABS 2 today, then 1 daily for 4 days 2013 AZITHROMYCIN 82911117197 No Longer Active Tor Gramajo MD Active MINOCYCLINE HCL 50 MG CAP 1 pill by mouth daily for acne MINOCYCLINE HCL 73287967120 No Longer Active Tor Gramajo MD Active AXERT 12.5 MG TABS 1 tablet by mouth at onset of migraine; may repeat x 1 if headache is still present in 2 hours ALMOTRIPTAN MALATE 08047390687 No Longer Active Tamera Mustafa MD PhD Active ELIMITE 5 % CREA Apply from head to toe including scalp and soles of feet. Wash off after 8 hours. PERMETHRIN 19586102946 No Longer Active Tamera Mustafa MD PhD Active AMOXICILLIN 500 MG TABS 2 PO bid x 10 days AMOXICILLIN 79835028547 No Longer Active Tamera Mustafa MD PhD Active MAXALT 5 MG TABS 1 pill by mouth at start of migraine; may repeat x 1 if no improvement in 2 hours RIZATRIPTAN BENZOATE 64911527519 No Longer Active Tamera Mustafa MD PhD Active BACTRIM DS 800-160 MG TAB 1 tab by mouth twice daily TRIMETHOPRIM-SULFAMETHOXAZOLE 69627940699 No Longer Active Alli Frye MD Active TRI-SPRINTEC 0.18/0.215/0.25 MG-35 MCG TABS 1 po qd as directed NORGESTIM-ETH ESTRAD TRIPHASIC 73868644032 Active Alli Frye MD Active AXERT 6.25 MG TABS 1 pill by mouth at start of migraine; may repeat x 1 in 1 hr if needed ALMOTRIPTAN MALATE 82786592568 No Longer Active Tamera Mustafa MD PhD Active GENERESS FE 0.8-25 MG-MCG CHEW 1 daily NORETHIN-ETH ESTRADIOL-FE 88550684909 No Longer Active Tamera Mustafa MD PhD Active DOXYCYCLINE HYCLATE 50 MG CAP 1 pill by mouth daily for acne 2012 DOXYCYCLINE HYCLATE 57500043199 No Longer Active Tamera Mustafa MD PhD Active AMOXICILLIN 875 MG TABS 1 TWO TIMES A DAY AMOXICILLIN 64711363860 No Longer Active Sera Mcdowell MD Active AMOXICILLIN 875 MG TABS 1 TWO TIMES A DAY AMOXICILLIN 875 MG TABS 393574 AMOXICILLIN Inactive DOXYCYCLINE HYCLATE 50 MG CAP 1 pill by mouth daily for acne 2012 DOXYCYCLINE HYCLATE 50 MG CAP 5384693 DOXYCYCLINE HYCLATE Inactive GENERESS FE 0.8-25 MG-MCG CHEW 1 daily GENERESS FE 0.8-25 MG-MCG CHEW 7678292 NORETHIN-ETH ESTRADIOL-FE Inactive AXERT 6.25 MG TABS 1 pill by mouth at start of migraine; may repeat x 1 in 1 hr if needed AXERT 6.25 MG TABS 790088 ALMOTRIPTAN MALATE Inactive MAXALT 5 MG TABS 1 pill by mouth at start of migraine; may repeat x 1 if no improvement in 2 hours MAXALT 5 MG TABS 111202 RIZATRIPTAN BENZOATE Inactive AMOXICILLIN 500 MG TABS 2 PO bid x 10 days AMOXICILLIN 500 MG TABS 106077 AMOXICILLIN Inactive ELIMITE 5 % CREA Apply from head to toe including scalp and soles of feet. Wash off after 8 hours. ELIMITE 5 % CREA 434729 PERMETHRIN Inactive AXERT 12.5 MG TABS 1 tablet by mouth at onset of migraine; may repeat x 1 if headache is still present in 2 hours AXERT 12.5 MG TABS 109723 ALMOTRIPTAN MALATE Inactive MINOCYCLINE HCL 50 MG CAP 1 pill by mouth daily for acne MINOCYCLINE HCL 50 MG CAP 308998 MINOCYCLINE HCL Inactive ZOMIG 5 MG TABS Take 1 tablet by mouth daily as needed ZOMIG 5 MG TABS 999742 ZOLMITRIPTAN Inactive ZOFRAN ODT 4 MG TBDP 1 po q6hr PRN Nausea ZOFRAN ODT 4 MG TBDP 762615 ONDANSETRON Inactive SUMATRIPTAN 20 MG/ACT SOLN 1 spray in one nostril at onset of migraine; may repeat in 2 hours if needed for continued migraine SUMATRIPTAN 20 MG/ACT SOLN 393732 SUMATRIPTAN Inactive LEVOTHYROXINE SODIUM 125 MCG ORAL TABS 1 pill by mouth daily, for thyroid LEVOTHYROXINE SODIUM 125 MCG ORAL TABS 172627 LEVOTHYROXINE SODIUM Inactive TRANSDERM-SCOP 1.5 MG TRANS PT72 1 patch every 3 days, as needed for motion sickness, start at least 4 hours hours prior to departure TRANSDERM-SCOP 1.5 MG TRANS PT72 SCOPOLAMINE BASE Inactive AMITRIPTYLINE HCL 75 MG TAB take 1 tab po qhs for migraines. 2016 AMITRIPTYLINE HCL 75 MG TAB 540485 AMITRIPTYLINE HCL Inactive MAGNESIUM OXIDE 400 MG CAPS 1 po with migraine MAGNESIUM OXIDE 400 MG CAPS 533019 MAGNESIUM OXIDE Inactive AMITRIPTYLINE HCL 50 MG ORAL TABS 1 pill by mouth nightly, for migraine prevention AMITRIPTYLINE HCL 50 MG ORAL TABS 331693 AMITRIPTYLINE HCL Inactive AMITRIPTYLINE HCL 50 MG TAB 1 po qhs for migraine AMITRIPTYLINE HCL 50 MG TAB 543621 AMITRIPTYLINE HCL Inactive ZOLOFT 50 MG TAB 1 tablet by mouth daily for mood and headache ZOLOFT 50 MG TAB 291669 SERTRALINE HCL Inactive AMITRIPTYLINE HCL 25 MG TAB 1 tab by mouth daily at bedtime 11/04 AMITRIPTYLINE HCL 25 MG TAB 083183 AMITRIPTYLINE HCL Inactive LORAZEPAM 0.5 MG TAB take 1 tab po qday prn anxiety attacks 11/04 LORAZEPAM 0.5 MG TAB 210356 LORAZEPAM Inactive BACTRIM DS 800-160 MG TAB 1 tab by mouth twice daily BACTRIM DS 800-160 MG TAB 19820713 TRIMETHOPRIM-SULFAMETHOXAZOLE Inactive ZITHROMAX Z-ADALGISA 250 MG TABS 2 today, then 1 daily for 4 days 2013 ZITHROMAX Z-ADALGISA 250 MG TABS 5691681 AZITHROMYCIN Inactive BACTRIM DS 800-160 MG TAB 1 tab by mouth twice daily BACTRIM DS 800-160 MG TAB 19820713 TRIMETHOPRIM-SULFAMETHOXAZOLE Inactive Advance Directives Directive Description Start Date CONSENT: MEDICATION HISTORY CONSENT FOR MINOR CARE Immunizations Vaccine Administration Date Value Standard Description Adacel (Tetanus, reduced Diphtheria, and acellular Pertussis Immunization) Adacel [FYR125] tetanus toxoid, reduced diphtheria toxoid, and acellular [...] 0.36-3.74 Encounters Code Encounter Date Provider Facility CPT-95019 Level 4 Est. Patient 23:05:57 CDT Alli Frye MD [facility]-17734 Level 4 Est. Patient 12:25:34 CDT Alli Frye MD [facility]-59102 Level 4 Est. Patient 13:40:53 CDT Alli Frye MD [facility]-23714 Level 4 Est. Patient 13:18:45 BELLMAN Alli Frye MD [facility]-36798 Level 4 Est. Patient 11:32:52 BELLMAN Alli Frye MD [facility]-88237 Level 4 Est. Patient 14:47:16 CDT Alli Frye MD [facility]-81249 Level 3 Est. Patient 17:25:12 CDT Tamera Mustafa MD PhD [facility]-92400 Level 3 Est. Patient 15:47:52 CDT Jr Morrow MD [facility] CPT-81874 Level 3 Est. Patient 17:07:09 BELLMAN Tor Gramajo MD [facility] CPT-09323 Level 3 Est. Patient 11:34:16 CDT Gerson EMANUEL [facility] CPT-37266 Level 3 Est. Patient 16:33:58 CDT Edyta Otto APRN [facility]-85003 Level 3 Est. Patient 15:17:40 BELLMAN Sera Mcdowell MD [facility] CPT-18413 Level 3 Est. Patient 16:32:34 BELLMAN Sera Mcdowell MD [facility] Procedures Code Procedure Name Date Entry Date Standard Description CPT-15459 First Vx - Ix admin via ID IM or jet injects without counseling by physician 15:09:59 CDT CPT-83976 Menveo Intramuscular Solution Reconstituted 15:09:59 CDT CPT-54879 Meningococcal Conjugate Vacine (Menactra) 12:25:34 CDT CPT-45044 Abd compl w upright 16:06:21 CDT CPT-PV Prev. Care Visit 12:33:36 BELLMAN
--- OUTSIDE RECORDS SUMMARY | 2018-01-18 03:20 | XMS REPORT | Clinical Summary ---
Author Author Admin, WILBERT Organization [employer] Address Unknown Phone Unavailable Allergies, Adverse Reactions, [...] Active Alli Frye MD Anxiety state, unspecified CARDIAC ARRHYTHMIA, INTERMITTENT ICD-427.9 Inactive Sera [...] Generic Name ND Status Provider Patient Instruction ZOLOFT 50 MG TAB 1 tablet by mouth daily for mood and headache SERTRALINE HCL [id number] No Longer Active Alli Frye MD Active AMITRIPTYLINE HCL 50 MG TAB 1 po qhs for migraine AMITRIPTYLINE HCL 69702752044 No Longer Active Alli Frye MD Active AMITRIPTYLINE HCL 25 MG TAB 1 tab by mouth daily at bedtime AMITRIPTYLINE HCL 36421635814 Active Alli Frye MD Active ZOLOFT 100 MG TAB take 1 tab po qday for mood and headaches. SERTRALINE HCL 42564950218 Active Alli Frye MD Active LEVOTHYROXINE SODIUM 112 MCG TABS 1 pill by mouth daily for thyroid LEVOTHYROXINE SODIUM 90748664254 Active Alli Frye MD Active AMITRIPTYLINE HCL 50 MG ORAL TABS 1 pill by mouth nightly, for migraine prevention AMITRIPTYLINE HCL 52237856818 No Longer Active Alli Frye MD Active MAGNESIUM OXIDE 400 MG CAPS 1 po with migraine MAGNESIUM OXIDE 61070961152 No Longer Active Alli Frye MD Active AMITRIPTYLINE HCL 75 MG TAB take 1 tab po qhs for migraines. 2016 AMITRIPTYLINE HCL 07729032452 No Longer Active Alli Frye MD Active LORAZEPAM 0.5 MG TAB take 1 tab po qday prn anxiety attacks LORAZEPAM 17389678394 Active Alli Frye MD Active MULTIVITAMIN GUMMIES ADULT CHEW MULTIPLE VITAMINS-MINERALS 38858361299 Active Alli Frye MD Active TRANSDERM-SCOP 1.5 MG TRANS PT72 1 patch every 3 days, as needed for motion sickness, start at least 4 hours hours prior to departure SCOPOLAMINE BASE 70186444223 No Longer Active Alli Frye MD Active LEVOTHYROXINE SODIUM 125 MCG ORAL TABS 1 pill by mouth daily, for thyroid LEVOTHYROXINE SODIUM 49227229558 No Longer Active Alli Frye MD Active ZOFRAN ODT 4 MG TBDP 1 pill dissolved by mouth every 4 hours if needed for nausea ONDANSETRON 29139193601 Active Tamera Mustafa MD PhD Active SUMATRIPTAN 20 MG/ACT SOLN 1 spray in one nostril at onset of migraine; may repeat in 2 hours if needed for continued migraine SUMATRIPTAN 30039189260 No Longer Active Tamera Mustafa MD PhD Active ZOFRAN ODT 4 MG TBDP 1 po q6hr PRN Nausea ONDANSETRON 54764424199 No Longer Active Jr Morrow MD Active EXCEDRIN MIGRAINE 250-250-65 MG TABS 1 tab po as needed [id number] 87216572692 Active Jr Morrow MD Active ZOMIG 5 MG TABS Take 1 tablet by mouth daily as needed ZOLMITRIPTAN 23075371438 No Longer Active Jr Morrow MD Active BACTRIM DS 800-160 MG TAB 1 tab by mouth twice daily TRIMETHOPRIM-SULFAMETHOXAZOLE 10750243165 No Longer Active Tamera Mustafa MD PhD Active ZITHROMAX Z-ADALGISA 250 MG TABS 2 today, then 1 daily for 4 days 2013 AZITHROMYCIN 32504092734 No Longer Active Tor Gramajo MD Active MINOCYCLINE HCL 50 MG CAP 1 pill by mouth daily for acne MINOCYCLINE HCL 84037707195 No Longer Active Tor Gramajo MD Active AXERT 12.5 MG TABS 1 tablet by mouth at onset of migraine; may repeat x 1 if headache is still present in 2 hours ALMOTRIPTAN MALATE 01649445265 No Longer Active Tamera uMstafa MD PhD Active ELIMITE 5 % CREA Apply from head to toe including scalp and soles of feet. Wash off after 8 hours. PERMETHRIN 75782089457 No Longer Active Tamera Mustafa MD PhD Active AMOXICILLIN 500 MG TABS 2 PO bid x 10 days AMOXICILLIN 50394163374 No Longer Active Tamera Mustafa MD PhD Active MAXALT 5 MG TABS 1 pill by mouth at start of migraine; may repeat x 1 if no improvement in 2 hours RIZATRIPTAN BENZOATE 08492193283 No Longer Active Tamera Mustafa MD PhD Active BACTRIM DS 800-160 MG TAB 1 tab by mouth twice daily TRIMETHOPRIM-SULFAMETHOXAZOLE 87603202654 No Longer Active Alli Frye MD Active TRI-SPRINTEC 0.18/0.215/0.25 MG-35 MCG TABS 1 po qd as directed NORGESTIM-ETH ESTRAD TRIPHASIC 54311477163 Active Alli Frye MD Active AXERT 6.25 MG TABS 1 pill by mouth at start of migraine; may repeat x 1 in 1 hr if needed ALMOTRIPTAN MALATE 63530492923 No Longer Active Tamera Mustafa MD PhD Active GENERESS FE 0.8-25 MG-MCG CHEW 1 daily NORETHIN-ETH ESTRADIOL-FE 96136090287 No Longer Active Tamera Mustafa MD PhD Active DOXYCYCLINE HYCLATE 50 MG CAP 1 pill by mouth daily for acne 2012 DOXYCYCLINE HYCLATE 56200965061 No Longer Active Tamera Mustafa MD PhD Active AMOXICILLIN 875 MG TABS 1 TWO TIMES A DAY AMOXICILLIN 02555247575 No Longer Active Sera Mcdowell MD Active AMOXICILLIN 875 MG TABS 1 TWO TIMES A DAY AMOXICILLIN 875 MG TABS 387170 AMOXICILLIN Inactive DOXYCYCLINE HYCLATE 50 MG CAP 1 pill by mouth daily for acne 2012 DOXYCYCLINE HYCLATE 50 MG CAP 7374413 DOXYCYCLINE HYCLATE Inactive GENERESS FE 0.8-25 MG-MCG CHEW 1 daily GENERESS FE 0.8-25 MG-MCG CHEW 0422023 NORETHIN-ETH ESTRADIOL-FE Inactive AXERT 6.25 MG TABS 1 pill by mouth at start of migraine; may repeat x 1 in 1 hr if needed AXERT 6.25 MG TABS 033691 ALMOTRIPTAN MALATE Inactive MAXALT 5 MG TABS 1 pill by mouth at start of migraine; may repeat x 1 if no improvement in 2 hours MAXALT 5 MG TABS 528825 RIZATRIPTAN BENZOATE Inactive AMOXICILLIN 500 MG TABS 2 PO bid x 10 days AMOXICILLIN 500 MG TABS 564078 AMOXICILLIN Inactive ELIMITE 5 % CREA Apply from head to toe including scalp and soles of feet. Wash off after 8 hours. ELIMITE 5 % CREA 202143 PERMETHRIN Inactive AXERT 12.5 MG TABS 1 tablet by mouth at onset of migraine; may repeat x 1 if headache is still present in 2 hours AXERT 12.5 MG TABS 545674 ALMOTRIPTAN MALATE Inactive MINOCYCLINE HCL 50 MG CAP 1 pill by mouth daily for acne MINOCYCLINE HCL 50 MG CAP 658879 MINOCYCLINE HCL Inactive ZOMIG 5 MG TABS Take 1 tablet by mouth daily as needed ZOMIG 5 MG TABS 568295 ZOLMITRIPTAN Inactive ZOFRAN ODT 4 MG TBDP 1 po q6hr PRN Nausea ZOFRAN ODT 4 MG TBDP 500993 ONDANSETRON Inactive SUMATRIPTAN 20 MG/ACT SOLN 1 spray in one nostril at onset of migraine; may repeat in 2 hours if needed for continued migraine SUMATRIPTAN 20 MG/ACT SOLN 107739 SUMATRIPTAN Inactive LEVOTHYROXINE SODIUM 125 MCG ORAL TABS 1 pill by mouth daily, for thyroid LEVOTHYROXINE SODIUM 125 MCG ORAL TABS 822143 LEVOTHYROXINE SODIUM Inactive TRANSDERM-SCOP 1.5 MG TRANS PT72 1 patch every 3 days, as needed for motion sickness, start at least 4 hours hours prior to departure TRANSDERM-SCOP 1.5 MG TRANS PT72 SCOPOLAMINE BASE Inactive AMITRIPTYLINE HCL 75 MG TAB take 1 tab po qhs for migraines. 2016 AMITRIPTYLINE HCL 75 MG TAB 214612 AMITRIPTYLINE HCL Inactive MAGNESIUM OXIDE 400 MG CAPS 1 po with migraine MAGNESIUM OXIDE 400 MG CAPS 692805 MAGNESIUM OXIDE Inactive AMITRIPTYLINE HCL 50 MG ORAL TABS 1 pill by mouth nightly, for migraine prevention AMITRIPTYLINE HCL 50 MG ORAL TABS 360930 AMITRIPTYLINE HCL Inactive AMITRIPTYLINE HCL 50 MG TAB 1 po qhs for migraine AMITRIPTYLINE HCL 50 MG TAB 974308 AMITRIPTYLINE HCL Inactive ZOLOFT 50 MG TAB 1 tablet by mouth daily for mood and headache ZOLOFT 50 MG TAB 007551 SERTRALINE HCL Inactive BACTRIM DS 800-160 MG TAB 1 tab by mouth twice daily BACTRIM DS 800-160 MG TAB 320132 TRIMETHOPRIM-SULFAMETHOXAZOLE Inactive ZITHROMAX Z-ADALGSIA 250 MG TABS 2 today, then 1 daily for 4 days 2013 ZITHROMAX Z-ADALGISA 250 MG TABS 4328633 AZITHROMYCIN Inactive BACTRIM DS 800-160 MG TAB 1 tab by mouth twice daily BACTRIM DS 800-160 MG TAB 19820713 TRIMETHOPRIM-SULFAMETHOXAZOLE Inactive Advance Directives Directive Description Start Date CONSENT: MEDICATION HISTORY CONSENT FOR MINOR CARE Immunizations Vaccine Administration Date Value Standard Description Adacel (Tetanus, reduced Diphtheria, and acellular Pertussis Immunization) Adacel [[id number]] tetanus toxoid, reduced diphtheria toxoid, and acellular [...] Range Description blood pressure, diastolic - 8462-4 87 mm[Hg] BP bonilla blood pressure, systolic - 8480-6 127 mm[Hg] BP sys height E&M - 8302-2 63.5 [in_us] Bdy height pulse rate E&M - 8867-4 104 /min Heart rate temperature E&M 98.2 [degF] Body temperature weight E&M - 3141-9 144.31 [lb_av] Weight Measured blood pressure, diastolic - 8462-4 80 mm[Hg] BP bonilla blood pressure, systolic - 8480-6 136 mm[Hg] BP sys height E&M - 8302-2 63.5 [in_us] Bdy height pulse rate E&M - 8867-4 107 /min Heart rate temperature E&M 98.2 [degF] Body temperature weight E&M - 3141-9 149 [lb_av] Weight Measured blood pressure, diastolic - 8462-4 77 mm[Hg] BP bonilla blood pressure, systolic - 8480-6 117 mm[Hg] BP sys pulse rate E&M - 8867-4 98 /min Heart rate temperature E&M 98.5 [degF] Body temperature weight E&M - 3141-9 141 [lb_av] Weight Measured Encounters Code Encounter Date Provider Facility CPT-10602 Level 4 Est. Patient 13:40:53 CDT Alli Frye MD [facility] CPT-12842 Level 4 Est. Patient 13:18:45 PERSONNEL ADVISER Alli Frye MD [facility] CPT-41281 Level 4 Est. Patient 11:32:52 PERSONNEL ADVISER Alli Frye MD [facility] CPT-08200 Level 4 Est. Patient 14:47:16 CDT Alli Frye MD [facility] CPT-57542 Level 3 Est. Patient 17:25:12 CDT Tamera Mustafa MD PhD [facility] CPT-40164 Level 3 Est. Patient 15:47:52 CDT Jr Morrow MD [facility] CPT-97397 Level 3 Est. Patient 17:07:09 PERSONNEL ADVISER Tor Gramajo MD [facility] CPT-52042 Level 3 Est. Patient 11:34:16 CDT Gerson EMANUEL [facility] CPT-55239 Level 3 Est. Patient 16:33:58 CDT Edyta Otto APRN [facility] CPT-53159 Level 3 Est. Patient 15:17:40 PERSONNEL ADVISER Sera Mcdowell MD [facility] CPT-73903 Level 3 Est. Patient 16:32:34 PERSONNEL ADVISER Sera Mcdowell MD [facility] Procedures Code Procedure Name Date Entry Date Standard Description CPT-10555 Abd compl w upright 16:06:21 CDT CPT-PV Prev. Care Visit 12:33:36 PERSONNEL ADVISER
--- OUTSIDE RECORDS SUMMARY | 2018-01-18 03:20 | XMS REPORT | Clinical Summary ---
Author Author Admin, WILBERT [facility] Address Unknown Phone Unavailable Allergies, Adverse [...] hours hours prior to departure SCOPOLAMINE BASE 77357566159 Active Tamera Mustafa MD PhD Active ZOFRAN ODT 4 MG TBDP 1 pill dissolved by mouth every 4 hours if needed for nausea ONDANSETRON 69351673739 Active Tamera Mustafa MD PhD Active AMITRIPTYLINE HCL 25 MG ORAL TABS 1 pill by mouth nightly, for migraine prevention AMITRIPTYLINE HCL 30859910786 Active Alli Frye MD Active LEVOTHYROXINE SODIUM 100 MCG ORAL TABS 1 tab by mouth daily LEVOTHYROXINE SODIUM 12612700364 Active Tamera Mustafa MD PhD Active SUMATRIPTAN 20 MG/ACT SOLN 1 spray in one nostril at onset of migraine; may repeat in 2 hours if needed for continued migraine SUMATRIPTAN 66590583477 No Longer Active Tamera Mustafa MD PhD Active ZOFRAN ODT 4 MG TBDP 1 po q6hr PRN Nausea ONDANSETRON 84290782858 No Longer Active Jr Morrow MD Active EXCEDRIN MIGRAINE 250-250-65 MG TABS 1 tab po as needed [id number] 86986870180 Active Jr Morrow MD Active ZOMIG 5 MG TABS Take 1 tablet by mouth daily as needed ZOLMITRIPTAN 19619237020 No Longer Active Jr Morrow MD Active BACTRIM DS 800-160 MG TAB 1 tab by mouth twice daily TRIMETHOPRIM-SULFAMETHOXAZOLE 54809064687 No Longer Active Tamera Mustafa MD PhD Active ZITHROMAX Z-ADALGISA 250 MG TABS 2 today, then 1 daily for 4 days 2013 AZITHROMYCIN 75473888791 No Longer Active Tor Gramajo MD Active MINOCYCLINE HCL 50 MG CAP 1 pill by mouth daily for acne MINOCYCLINE HCL 84733090560 No Longer Active Tor Gramajo MD Active AXERT 12.5 MG TABS 1 tablet by mouth at onset of migraine; may repeat x 1 if headache is still present in 2 hours ALMOTRIPTAN MALATE 14978755581 No Longer Active Tamera Mustafa MD PhD Active ELIMITE 5 % CREA Apply from head to toe including scalp and soles of feet. Wash off after 8 hours. PERMETHRIN 99470340612 No Longer Active Tamera Mustafa MD PhD Active AMOXICILLIN 500 MG TABS 2 PO bid x 10 days AMOXICILLIN 58893638814 No Longer Active Tamera Mustafa MD PhD Active MAXALT 5 MG TABS 1 pill by mouth at start of migraine; may repeat x 1 if no improvement in 2 hours RIZATRIPTAN BENZOATE 15718560181 No Longer Active Tamera Mustafa MD PhD Active BACTRIM DS 800-160 MG TAB 1 tab by mouth twice daily TRIMETHOPRIM-SULFAMETHOXAZOLE 43632039036 No Longer Active Alli Frye MD Active TRI-SPRINTEC 0.18/0.215/0.25 MG-35 MCG TABS 1 po qd as directed NORGESTIM-ETH ESTRAD TRIPHASIC 28972771647 Active Gerson EMANUEL Active AXERT 6.25 MG TABS 1 pill by mouth at start of migraine; may repeat x 1 in 1 hr if needed ALMOTRIPTAN MALATE 95172916537 No Longer Active Tamera Mutsafa MD PhD Active GENERESS FE 0.8-25 MG-MCG CHEW 1 daily NORETHIN-ETH ESTRADIOL-FE 12120407712 No Longer Active Tamera Mustafa MD PhD Active DOXYCYCLINE HYCLATE 50 MG CAP 1 pill by mouth daily for acne 2012 DOXYCYCLINE HYCLATE 91325305179 No Longer Active Tamera Mustafa MD PhD Active AMOXICILLIN 875 MG TABS 1 TWO TIMES A DAY AMOXICILLIN 36137040875 No Longer Active Sera Mcdowell MD Active AMOXICILLIN 875 MG TABS 1 TWO TIMES A DAY AMOXICILLIN 875 MG TABS 396477 AMOXICILLIN Inactive DOXYCYCLINE HYCLATE 50 MG CAP 1 pill by mouth daily for acne 2012 DOXYCYCLINE HYCLATE 50 MG CAP 8676322 DOXYCYCLINE HYCLATE Inactive GENERESS FE 0.8-25 MG-MCG CHEW 1 daily GENERESS FE 0.8-25 MG-MCG CHEW 1469885 NORETHIN-ETH ESTRADIOL-FE Inactive AXERT 6.25 MG TABS 1 pill by mouth at start of migraine; may repeat x 1 in 1 hr if needed AXERT 6.25 MG TABS 401362 ALMOTRIPTAN MALATE Inactive MAXALT 5 MG TABS 1 pill by mouth at start of migraine; may repeat x 1 if no improvement in 2 hours MAXALT 5 MG TABS 426737 RIZATRIPTAN BENZOATE Inactive AMOXICILLIN 500 MG TABS 2 PO bid x 10 days AMOXICILLIN 500 MG TABS 572386 AMOXICILLIN Inactive ELIMITE 5 % CREA Apply from head to toe including scalp and soles of feet. Wash off after 8 hours. ELIMITE 5 % CREA 883825 PERMETHRIN Inactive AXERT 12.5 MG TABS 1 tablet by mouth at onset of migraine; may repeat x 1 if headache is still present in 2 hours AXERT 12.5 MG TABS 889126 ALMOTRIPTAN MALATE Inactive MINOCYCLINE HCL 50 MG CAP 1 pill by mouth daily for acne MINOCYCLINE HCL 50 MG CAP 919895 MINOCYCLINE HCL Inactive ZOMIG 5 MG TABS Take 1 tablet by mouth daily as needed ZOMIG 5 MG TABS 079880 ZOLMITRIPTAN Inactive ZOFRAN ODT 4 MG TBDP 1 po q6hr PRN Nausea ZOFRAN ODT 4 MG TBDP 636284 ONDANSETRON Inactive SUMATRIPTAN 20 MG/ACT SOLN 1 spray in one nostril at onset of migraine; may repeat in 2 hours if needed for continued migraine SUMATRIPTAN 20 MG/ACT SOLN 074510 SUMATRIPTAN Inactive BACTRIM DS 800-160 MG TAB 1 tab by mouth twice daily BACTRIM DS 800-160 MG TAB TRIMETHOPRIM-SULFAMETHOXAZOLE Inactive ZITHROMAX Z-ADALGISA 250 MG TABS 2 today, then 1 daily for 4 days 2013 ZITHROMAX Z-ADALGISA 250 MG TABS 0281062 AZITHROMYCIN Inactive BACTRIM DS 800-160 MG TAB 1 tab by mouth twice daily BACTRIM DS 800-160 MG TAB TRIMETHOPRIM-SULFAMETHOXAZOLE Inactive Advance Directives Directive Description Start Date CONSENT: MEDICATION HISTORY CONSENT FOR MINOR CARE Immunizations Vaccine Administration Date Value Standard Description Adacel (Tetanus, reduced Diphtheria, and acellular Pertussis Immunization) Adacel [[id number]] tetanus toxoid, reduced diphtheria toxoid, and acellular [...] Lab Report: CBC W/DIFF, Comp. Metabolic Panel, [facility] - Chemistry sodium, serum 134 mmol/L 264-751 9585/09/10 potassium, serum 4.4 mmol/L 3.5-5.2 chloride, serum [...] Lab Report: CBC W/DIFF, Comp. Metabolic Panel, [facility] - Hematology leukocyte count, blood 18.3 10^3/MM^3 [...] Negative bilirubin, urine Negative Negative urine color [place] Colorless;Lightyellow;Straw;Yellow appearance, urine SlCloudy Clear specific gravity, urine >=1.030 1.000-1.030 pH, urine, semiquantitative 6.0 5.0-8.5 Encounters Code Encounter Date Provider Facility CPT-46635 Level 3 Est. Patient 17:25:12 CDT Tamera Mustafa MD PhD [facility] CPT-54610 Level 3 Est. Patient 15:47:52 CDT Jr Morrow MD [facility] CPT-88642 Level 3 Est. Patient 17:07:09 SIEVE GRADER TENDER Tor Gramajo MD [facility] CPT-16659 Level 3 Est. Patient 11:34:16 CDT Gerson EMANUEL [facility] CPT-59884 Level 3 Est. Patient 16:33:58 CDT Edyta Otto APRN [facility] CPT-33651 Level 3 Est. Patient 15:17:40 SIEVE GRADER TENDER Sera Mcdowell MD [facility] CPT-63310 Level 3 Est. Patient 16:32:34 SIEVE GRADER TENDER Sera Mcdowell MD [facility] Procedures Code Procedure Name Date Entry Date Standard Description CPT-90705 Abd compl w upright 16:06:21 CDT CPT-PV Prev. Care Visit 12:33:36 SIEVE GRADER TENDER
--- OUTSIDE RECORDS SUMMARY | 2018-01-18 03:21 | XMS REPORT | Clinical Summary ---
Author Author Admin, WILBERT Organization [employer] Address Unknown Phone Unavailable Allergies, Adverse Reactions, [...] MD Cardiac dysrhythmia, unspecified DYSURIA 788.1 Inactive Sear Mcdowell MD Dysuria CONSTIPATION UNSP. 564.00 Resolved [...] 1 tab po qday prn anxiety ALPRAZOLAM 43847629796 Active Alli Frye MD Active LORAZEPAM 0.5 MG TAB take 1 tab po qday prn anxiety attacks 11/04 LORAZEPAM 99516733025 No Longer Active Alli Frye MD Active RANITIDINE HCL 300 MG CAPS 1 tablet by mouth daily prn acid reflux RANITIDINE HCL 99417808970 Active Alli Frye MD Active METOPROLOL TARTRATE 25 MG ORAL TABS take 1 tab po BID METOPROLOL TARTRATE 87358846336 Active Alli Frye MD Active AMITRIPTYLINE HCL 25 MG TAB 1 tab by mouth daily at bedtime 11/04 AMITRIPTYLINE HCL 24432423205 No Longer Active Alli Frye MD Active ZOLOFT 50 MG TAB 1 tablet by mouth daily for mood and headache SERTRALINE HCL 05491489669 No Longer Active Alli Frye MD Active AMITRIPTYLINE HCL 50 MG TAB 1 po qhs for migraine AMITRIPTYLINE HCL 30380954589 No Longer Active Alli Frye MD Active ZOLOFT 100 MG TAB take 1 tab po qday for mood and headaches. SERTRALINE HCL 67411238264 Active Alli Frye MD Active LEVOTHYROXINE SODIUM 112 MCG TABS 1 pill by mouth daily for thyroid LEVOTHYROXINE SODIUM 92284041585 Active Alli Frye MD Active AMITRIPTYLINE HCL 50 MG ORAL TABS 1 pill by mouth nightly, for migraine prevention AMITRIPTYLINE HCL 86404125383 No Longer Active Alli Frye MD Active MAGNESIUM OXIDE 400 MG CAPS 1 po with migraine MAGNESIUM OXIDE 83343967927 No Longer Active Alli Frye MD Active AMITRIPTYLINE HCL 75 MG TAB take 1 tab po qhs for migraines. 2016 AMITRIPTYLINE HCL 70438447725 No Longer Active Alli Frye MD Active MULTIVITAMIN GUMMIES ADULT CHEW MULTIPLE VITAMINS-MINERALS 61496520969 Active Alli Frye MD Active TRANSDERM-SCOP 1.5 MG TRANS PT72 1 patch every 3 days, as needed for motion sickness, start at least 4 hours hours prior to departure SCOPOLAMINE BASE 90673430147 No Longer Active Alli Frye MD Active LEVOTHYROXINE SODIUM 125 MCG ORAL TABS 1 pill by mouth daily, for thyroid LEVOTHYROXINE SODIUM 80874045910 No Longer Active Alli Frye MD Active ZOFRAN ODT 4 MG TBDP 1 pill dissolved by mouth every 4 hours if needed for nausea ONDANSETRON 98747105795 Active Tamera Mustafa MD PhD Active SUMATRIPTAN 20 MG/ACT SOLN 1 spray in one nostril at onset of migraine; may repeat in 2 hours if needed for continued migraine SUMATRIPTAN 29390107118 No Longer Active Tamera Mustafa MD PhD Active ZOFRAN ODT 4 MG TBDP 1 po q6hr PRN Nausea ONDANSETRON 41309914995 No Longer Active Jr Morrow MD Active EXCEDRIN MIGRAINE 250-250-65 MG TABS 1 tab po as needed [id number] 51762693859 Active Jr Morrow MD Active ZOMIG 5 MG TABS Take 1 tablet by mouth daily as needed ZOLMITRIPTAN 93580289167 No Longer Active Jr Morrow MD Active BACTRIM DS 800-160 MG TAB 1 tab by mouth twice daily TRIMETHOPRIM-SULFAMETHOXAZOLE 93133959222 No Longer Active Tamera Mustafa MD PhD Active ZITHROMAX Z-ADALGISA 250 MG TABS 2 today, then 1 daily for 4 days 2013 AZITHROMYCIN 88749337085 No Longer Active Tor Gramajo MD Active MINOCYCLINE HCL 50 MG CAP 1 pill by mouth daily for acne MINOCYCLINE HCL 87589431170 No Longer Active Tor Gramajo MD Active AXERT 12.5 MG TABS 1 tablet by mouth at onset of migraine; may repeat x 1 if headache is still present in 2 hours ALMOTRIPTAN MALATE 06317155962 No Longer Active Tamera Mustafa MD PhD Active ELIMITE 5 % CREA Apply from head to toe including scalp and soles of feet. Wash off after 8 hours. PERMETHRIN 60673000834 No Longer Active Tamera Mustafa MD PhD Active AMOXICILLIN 500 MG TABS 2 PO bid x 10 days AMOXICILLIN 01131352591 No Longer Active Tamera Mustafa MD PhD Active MAXALT 5 MG TABS 1 pill by mouth at start of migraine; may repeat x 1 if no improvement in 2 hours RIZATRIPTAN BENZOATE 87891599896 No Longer Active Tamera Mustafa MD PhD Active BACTRIM DS 800-160 MG TAB 1 tab by mouth twice daily TRIMETHOPRIM-SULFAMETHOXAZOLE 46242288798 No Longer Active Alli Frye MD Active TRI-SPRINTEC 0.18/0.215/0.25 MG-35 MCG TABS 1 po qd as directed NORGESTIM-ETH ESTRAD TRIPHASIC 88598585415 Active Alli Frye MD Active AXERT 6.25 MG TABS 1 pill by mouth at start of migraine; may repeat x 1 in 1 hr if needed ALMOTRIPTAN MALATE 06764595336 No Longer Active Tamera Mustafa MD PhD Active GENERESS FE 0.8-25 MG-MCG CHEW 1 daily NORETHIN-ETH ESTRADIOL-FE 39572461918 No Longer Active Tamera Mustafa MD PhD Active DOXYCYCLINE HYCLATE 50 MG CAP 1 pill by mouth daily for acne 2012 DOXYCYCLINE HYCLATE 37549501694 No Longer Active aTmera Mustafa MD PhD Active AMOXICILLIN 875 MG TABS 1 TWO TIMES A DAY AMOXICILLIN 19983876878 No Longer Active Sera Mcdowell MD Active AMOXICILLIN 875 MG TABS 1 TWO TIMES A DAY AMOXICILLIN 875 MG TABS 191488 AMOXICILLIN Inactive DOXYCYCLINE HYCLATE 50 MG CAP 1 pill by mouth daily for acne 2012 DOXYCYCLINE HYCLATE 50 MG CAP 1687373 DOXYCYCLINE HYCLATE Inactive GENERESS FE 0.8-25 MG-MCG CHEW 1 daily GENERESS FE 0.8-25 MG-MCG CHEW 8966283 NORETHIN-ETH ESTRADIOL-FE Inactive AXERT 6.25 MG TABS 1 pill by mouth at start of migraine; may repeat x 1 in 1 hr if needed AXERT 6.25 MG TABS 597505 ALMOTRIPTAN MALATE Inactive MAXALT 5 MG TABS 1 pill by mouth at start of migraine; may repeat x 1 if no improvement in 2 hours MAXALT 5 MG TABS 389643 RIZATRIPTAN BENZOATE Inactive AMOXICILLIN 500 MG TABS 2 PO bid x 10 days AMOXICILLIN 500 MG TABS 148253 AMOXICILLIN Inactive ELIMITE 5 % CREA Apply from head to toe including scalp and soles of feet. Wash off after 8 hours. ELIMITE 5 % CREA 561973 PERMETHRIN Inactive AXERT 12.5 MG TABS 1 tablet by mouth at onset of migraine; may repeat x 1 if headache is still present in 2 hours AXERT 12.5 MG TABS 200105 ALMOTRIPTAN MALATE Inactive MINOCYCLINE HCL 50 MG CAP 1 pill by mouth daily for acne MINOCYCLINE HCL 50 MG CAP 650643 MINOCYCLINE HCL Inactive ZOMIG 5 MG TABS Take 1 tablet by mouth daily as needed ZOMIG 5 MG TABS 031375 ZOLMITRIPTAN Inactive ZOFRAN ODT 4 MG TBDP 1 po q6hr PRN Nausea ZOFRAN ODT 4 MG TBDP 413786 ONDANSETRON Inactive SUMATRIPTAN 20 MG/ACT SOLN 1 spray in one nostril at onset of migraine; may repeat in 2 hours if needed for continued migraine SUMATRIPTAN 20 MG/ACT SOLN 762123 SUMATRIPTAN Inactive LEVOTHYROXINE SODIUM 125 MCG ORAL TABS 1 pill by mouth daily, for thyroid LEVOTHYROXINE SODIUM 125 MCG ORAL TABS 559026 LEVOTHYROXINE SODIUM Inactive TRANSDERM-SCOP 1.5 MG TRANS PT72 1 patch every 3 days, as needed for motion sickness, start at least 4 hours hours prior to departure TRANSDERM-SCOP 1.5 MG TRANS PT72 SCOPOLAMINE BASE Inactive AMITRIPTYLINE HCL 75 MG TAB take 1 tab po qhs for migraines. 2016 AMITRIPTYLINE HCL 75 MG TAB 620009 AMITRIPTYLINE HCL Inactive MAGNESIUM OXIDE 400 MG CAPS 1 po with migraine MAGNESIUM OXIDE 400 MG CAPS 796722 MAGNESIUM OXIDE Inactive AMITRIPTYLINE HCL 50 MG ORAL TABS 1 pill by mouth nightly, for migraine prevention AMITRIPTYLINE HCL 50 MG ORAL TABS 856760 AMITRIPTYLINE HCL Inactive AMITRIPTYLINE HCL 50 MG TAB 1 po qhs for migraine AMITRIPTYLINE HCL 50 MG TAB 774551 AMITRIPTYLINE HCL Inactive ZOLOFT 50 MG TAB 1 tablet by mouth daily for mood and headache ZOLOFT 50 MG TAB 805996 SERTRALINE HCL Inactive AMITRIPTYLINE HCL 25 MG TAB 1 tab by mouth daily at bedtime 11/04 AMITRIPTYLINE HCL 25 MG TAB 057536 AMITRIPTYLINE HCL Inactive LORAZEPAM 0.5 MG TAB take 1 tab po qday prn anxiety attacks 11/04 LORAZEPAM 0.5 MG TAB 866625 LORAZEPAM Inactive BACTRIM DS 800-160 MG TAB 1 tab by mouth twice daily BACTRIM DS 800-160 MG TAB 649932 TRIMETHOPRIM-SULFAMETHOXAZOLE Inactive ZITHROMAX Z-ADALGISA 250 MG TABS 2 today, then 1 daily for 4 days 2013 ZITHROMAX Z-ADALGISA 250 MG TABS 6231780 AZITHROMYCIN Inactive BACTRIM DS 800-160 MG TAB 1 tab by mouth twice daily BACTRIM DS 800-160 MG TAB [id number] TRIMETHOPRIM-SULFAMETHOXAZOLE Inactive Advance Directives Directive Description Start Date CONSENT: MEDICATION HISTORY CONSENT FOR MINOR CARE Immunizations Vaccine Administration Date Value Standard Description Adacel (Tetanus, reduced Diphtheria, and acellular Pertussis Immunization) Adacel [[id number]] tetanus toxoid, reduced diphtheria toxoid, and acellular [...] 0.36-3.74 Encounters Code Encounter Date Provider Facility CPT-89411 Level 4 Est. Patient 23:05:57 CDT Alli Frye MD [facility]-68276 Level 4 Est. Patient 12:25:34 CDT Alli Frye MD [facility]-53764 Level 4 Est. Patient 13:40:53 CDT Alli Frye MD [facility]-92675 Level 4 Est. 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-42832 Level 4 Est. Patient 11:32:52 BAKED AND GRAPHITE INSPECTOR Alli Frye MD [facility]-69083 Level 4 Est. Patient 14:47:16 CDT Alli Frye MD [facility]-53400 Level 3 Est. Patient 17:25:12 CDT Tamera Mustafa MD PhD [facility]-40041 Level 3 Est. Patient 15:47:52 CDT Jr Morrow MD [facility]-07422 Level 3 Est. Patient 17:07:09 BAKED AND GRAPHITE INSPECTOR Tor Gramajo MD [facility]-02985 Level 3 Est. Patient 11:34:16 CDT Gerson EMANUEL [facility]-00186 Level 3 Est. Patient 16:33:58 CDT Edyta Otto APRN [facility]-14885 Level 3 Est. Patient 15:17:40 BAKED AND GRAPHITE INSPECTOR Sera Mcdowell MD [facility]-07347 Level 3 Est. Patient 16:32:34 BAKED AND GRAPHITE INSPECTOR Sera Mcdowell MD [facility] Procedures Code Procedure Name Date Entry Date Standard Description CPT-81384 First Vx - Ix admin via ID IM or jet injects without counseling by physician 15:09:59 CDT CPT-49342 Menveo Intramuscular Solution Reconstituted 15:09:59 CDT CPT-24192 Meningococcal Conjugate Vacine (Menactra) 12:25:34 CDT CPT-25213 Abd compl w upright 16:06:21 CDT CPT-PV Prev. Care Visit 12:33:36 BAKED AND GRAPHITE INSPECTOR
--- OUTSIDE RECORDS SUMMARY | 2018-01-18 03:22 | XMS REPORT | Clinical Summary ---
Author Author Admin, CRISTOPHERE Organization [employer] Address Unknown Phone Unavailable Allergies, Adverse Reactions, [...] Active Alli Frye MD Anxiety state, unspecified DYSURIA ICD-788.1 Inactive Sera Mcdowell MD CONSTIPATION UNSP. ICD-564.00 Inactive Sera Mcdowell MD PHARYNGITIS ACUTE ICD-462 Inactive Sera Mcdowell MD THYROMEGALY ICD-240.9 Inactive Tamera Mustafa MD PhD CARDIAC ARRHYTHMIA, INTERMITTENT ICD-427.9 Inactive Sera Mcdowell MD PHARYNGITIS ICD-462 Inactive Tamera Mustafa MD PhD Tonsillitis, acute ICD-463 Inactive Tamera Mustafa MD PhD UTI ICD-599.0 Inactive Tamera Mustafa MD PhD SCABIES ICD-133.0 Inactive Tor Gramajo MD 05/30 Medication List Medication Instructions Start Date Stop Date Generic Name NDC Status Provider Patient Instruction ZOLOFT 50 MG TAB 1 tablet by mouth daily for mood and headache SERTRALINE HCL 23691532663 No Longer Active Alli Frye MD Active AMITRIPTYLINE HCL 50 MG TAB 1 po qhs for migraine AMITRIPTYLINE HCL 38000052669 No Longer Active Alli Frye MD Active AMITRIPTYLINE HCL 25 MG TAB 1 tab by mouth daily at bedtime AMITRIPTYLINE HCL 16432845729 Active Alli Frye MD Active ZOLOFT 100 MG TAB take 1 tab po qday for mood and headaches. SERTRALINE HCL 35577181638 Active Alli Frye MD Active LEVOTHYROXINE SODIUM 112 MCG TABS 1 pill by mouth daily for thyroid LEVOTHYROXINE SODIUM 75865308360 Active Alli Frye MD Active AMITRIPTYLINE HCL 50 MG ORAL TABS 1 pill by mouth nightly, for migraine prevention AMITRIPTYLINE HCL 41731617264 No Longer Active Alli Frye MD Active MAGNESIUM OXIDE 400 MG CAPS 1 po with migraine MAGNESIUM OXIDE 65041660315 No Longer Active Alli Frye MD Active AMITRIPTYLINE HCL 75 MG TAB take 1 tab po qhs for migraines. 2016 AMITRIPTYLINE HCL 66528140605 No Longer Active Alli Frye MD Active LORAZEPAM 0.5 MG TAB take 1 tab po qday prn anxiety attacks LORAZEPAM 04886316534 Active Alli Frye MD Active MULTIVITAMIN GUMMIES ADULT CHEW MULTIPLE VITAMINS-MINERALS 39894494524 Active Alli Frye MD Active TRANSDERM-SCOP 1.5 MG TRANS PT72 1 patch every 3 days, as needed for motion sickness, start at least 4 hours hours prior to departure SCOPOLAMINE BASE 85169726933 No Longer Active Alli Frye MD Active LEVOTHYROXINE SODIUM 125 MCG ORAL TABS 1 pill by mouth daily, for thyroid LEVOTHYROXINE SODIUM 41139958216 No Longer Active Alli Frye MD Active ZOFRAN ODT 4 MG TBDP 1 pill dissolved by mouth every 4 hours if needed for nausea ONDANSETRON 75626816969 Active Tamera Mustafa MD PhD Active SUMATRIPTAN 20 MG/ACT SOLN 1 spray in one nostril at onset of migraine; may repeat in 2 hours if needed for continued migraine SUMATRIPTAN 93308144960 No Longer Active Tamera Mustafa MD PhD Active ZOFRAN ODT 4 MG TBDP 1 po q6hr PRN Nausea ONDANSETRON 21709867209 No Longer Active Jr Morrow MD Active EXCEDRIN MIGRAINE 250-250-65 MG TABS 1 tab po as needed [id number] 14137005871 Active Jr Morrow MD Active ZOMIG 5 MG TABS Take 1 tablet by mouth daily as needed ZOLMITRIPTAN 75956532575 No Longer Active Jr Morrow MD Active BACTRIM DS 800-160 MG TAB 1 tab by mouth twice daily TRIMETHOPRIM-SULFAMETHOXAZOLE 00015453359 No Longer Active Tamera Mustafa MD PhD Active ZITHROMAX Z-ADALGISA 250 MG TABS 2 today, then 1 daily for 4 days 2013 AZITHROMYCIN 49465646938 No Longer Active Tor Gramajo MD Active MINOCYCLINE HCL 50 MG CAP 1 pill by mouth daily for acne MINOCYCLINE HCL 54809697948 No Longer Active Tor Gramajo MD Active AXERT 12.5 MG TABS 1 tablet by mouth at onset of migraine; may repeat x 1 if headache is still present in 2 hours ALMOTRIPTAN MALATE 24731936657 No Longer Active Tamera Mustafa MD PhD Active ELIMITE 5 % CREA Apply from head to toe including scalp and soles of feet. Wash off after 8 hours. PERMETHRIN 82858290474 No Longer Active Tamera Mustafa MD PhD Active AMOXICILLIN 500 MG TABS 2 PO bid x 10 days AMOXICILLIN 57821175902 No Longer Active Tamera Mustafa MD PhD Active MAXALT 5 MG TABS 1 pill by mouth at start of migraine; may repeat x 1 if no improvement in 2 hours RIZATRIPTAN BENZOATE 91252381191 No Longer Active Tamera Mustafa MD PhD Active BACTRIM DS 800-160 MG TAB 1 tab by mouth twice daily TRIMETHOPRIM-SULFAMETHOXAZOLE 63418871904 No Longer Active Alli Frye MD Active TRI-SPRINTEC 0.18/0.215/0.25 MG-35 MCG TABS 1 po qd as directed NORGESTIM-ETH ESTRAD TRIPHASIC 51664509711 Active Alli Frye MD Active AXERT 6.25 MG TABS 1 pill by mouth at start of migraine; may repeat x 1 in 1 hr if needed ALMOTRIPTAN MALATE 82231515572 No Longer Active Tamera Mustafa MD PhD Active GENERESS FE 0.8-25 MG-MCG CHEW 1 daily NORETHIN-ETH ESTRADIOL-FE 76359362929 No Longer Active Tamera Mustafa MD PhD Active DOXYCYCLINE HYCLATE 50 MG CAP 1 pill by mouth daily for acne 2012 DOXYCYCLINE HYCLATE 88946212809 No Longer Active Tamera Mustafa MD PhD Active AMOXICILLIN 875 MG TABS 1 TWO TIMES A DAY AMOXICILLIN 81973450714 No Longer Active Sera Mcdowell MD Active AMOXICILLIN 875 MG TABS 1 TWO TIMES A DAY AMOXICILLIN 875 MG TABS 010484 AMOXICILLIN Inactive DOXYCYCLINE HYCLATE 50 MG CAP 1 pill by mouth daily for acne 2012 DOXYCYCLINE HYCLATE 50 MG CAP 1254273 DOXYCYCLINE HYCLATE Inactive GENERESS FE 0.8-25 MG-MCG CHEW 1 daily GENERESS FE 0.8-25 MG-MCG CHEW 1479687 NORETHIN-ETH ESTRADIOL-FE Inactive AXERT 6.25 MG TABS 1 pill by mouth at start of migraine; may repeat x 1 in 1 hr if needed AXERT 6.25 MG TABS 786523 ALMOTRIPTAN MALATE Inactive MAXALT 5 MG TABS 1 pill by mouth at start of migraine; may repeat x 1 if no improvement in 2 hours MAXALT 5 MG TABS 627768 RIZATRIPTAN BENZOATE Inactive AMOXICILLIN 500 MG TABS 2 PO bid x 10 days AMOXICILLIN 500 MG TABS 537580 AMOXICILLIN Inactive ELIMITE 5 % CREA Apply from head to toe including scalp and soles of feet. Wash off after 8 hours. ELIMITE 5 % CREA 846453 PERMETHRIN Inactive AXERT 12.5 MG TABS 1 tablet by mouth at onset of migraine; may repeat x 1 if headache is still present in 2 hours AXERT 12.5 MG TABS 356533 ALMOTRIPTAN MALATE Inactive MINOCYCLINE HCL 50 MG CAP 1 pill by mouth daily for acne MINOCYCLINE HCL 50 MG CAP 084155 MINOCYCLINE HCL Inactive ZOMIG 5 MG TABS Take 1 tablet by mouth daily as needed ZOMIG 5 MG TABS 229940 ZOLMITRIPTAN Inactive ZOFRAN ODT 4 MG TBDP 1 po q6hr PRN Nausea ZOFRAN ODT 4 MG TBDP 293690 ONDANSETRON Inactive SUMATRIPTAN 20 MG/ACT SOLN 1 spray in one nostril at onset of migraine; may repeat in 2 hours if needed for continued migraine SUMATRIPTAN 20 MG/ACT SOLN 122009 SUMATRIPTAN Inactive LEVOTHYROXINE SODIUM 125 MCG ORAL TABS 1 pill by mouth daily, for thyroid LEVOTHYROXINE SODIUM 125 MCG ORAL TABS 273545 LEVOTHYROXINE SODIUM Inactive TRANSDERM-SCOP 1.5 MG TRANS PT72 1 patch every 3 days, as needed for motion sickness, start at least 4 hours hours prior to departure TRANSDERM-SCOP 1.5 MG TRANS PT72 SCOPOLAMINE BASE Inactive AMITRIPTYLINE HCL 75 MG TAB take 1 tab po qhs for migraines. 2016 AMITRIPTYLINE HCL 75 MG TAB 481974 AMITRIPTYLINE HCL Inactive MAGNESIUM OXIDE 400 MG CAPS 1 po with migraine MAGNESIUM OXIDE 400 MG CAPS 781919 MAGNESIUM OXIDE Inactive AMITRIPTYLINE HCL 50 MG ORAL TABS 1 pill by mouth nightly, for migraine prevention AMITRIPTYLINE HCL 50 MG ORAL TABS 339442 AMITRIPTYLINE HCL Inactive AMITRIPTYLINE HCL 50 MG TAB 1 po qhs for migraine AMITRIPTYLINE HCL 50 MG TAB 638186 AMITRIPTYLINE HCL Inactive ZOLOFT 50 MG TAB 1 tablet by mouth daily for mood and headache ZOLOFT 50 MG TAB 135885 SERTRALINE HCL Inactive BACTRIM DS 800-160 MG TAB 1 tab by mouth twice daily BACTRIM DS 800-160 MG TAB 904237 TRIMETHOPRIM-SULFAMETHOXAZOLE Inactive ZITHROMAX Z-ADALGISA 250 MG TABS 2 today, then 1 daily for 4 days 2013 ZITHROMAX Z-ADALGISA 250 MG TABS 3740848 AZITHROMYCIN Inactive BACTRIM DS 800-160 MG TAB 1 tab by mouth twice daily BACTRIM DS 800-160 MG TAB 19820713 TRIMETHOPRIM-SULFAMETHOXAZOLE Inactive Advance Directives Directive Description Start Date CONSENT: MEDICATION HISTORY CONSENT FOR MINOR CARE Immunizations Vaccine Administration Date Value Standard Description Adacel (Tetanus, reduced Diphtheria, and acellular Pertussis Immunization) Adacel [[id number]] tetanus toxoid, reduced diphtheria toxoid, and acellular [...] Measured Encounters Code Encounter Date Provider Facility CPT-61637 Level 4 Est. Patient 13:40:53 CDT Alli Frye MD [facility] CPT-72695 Level 4 Est. Patient 13:18:45 TEXTILE FINISHER Alli Frye MD [facility] CPT-54123 Level 4 Est. Patient 11:32:52 TEXTILE FINISHER Alli Frye MD [facility] CPT-90088 Level 4 Est. Patient 14:47:16 CDT Alli Frye MD [facility] CPT-52543 Level 3 Est. Patient 17:25:12 CDT Tamera Mustafa MD [facility] CPT-23381 Level 3 Est. Patient 15:47:52 CDT Jr Morrow MD [facility] CPT-06877 Level 3 Est. Patient 17:07:09 TEXTILE FINISHER Tor Gramajo MD [facility] CPT-27701 Level 3 Est. Patient 11:34:16 CDT Gerson EMANUEL [facility] CPT-97083 Level 3 Est. Patient 16:33:58 CDT Edyta Otto APRN [facility] CPT-74246 Level 3 Est. Patient 15:17:40 TEXTILE FINISHER Sera Mcdowell MD [facility] CPT-98864 Level 3 Est. Patient 16:32:34 TEXTILE FINISHER Sera Mcdowell MD [facility] Procedures Code Procedure Name Date Entry Date Standard Description CPT-08355 Abd compl w upright 16:06:21 CDT CPT-PV Prev. Care Visit 12:33:36 TEXTILE FINISHER
--- OUTSIDE RECORDS SUMMARY | 2018-01-18 03:22 | XMS REPORT | Clinical Summary ---
Author Author Admin, WILBERT Organization [employer] Address Unknown Phone Unavailable Allergies, Adverse Reactions, [...] 1 tab po BID prn anxiety ALPRAZOLAM 82478952066 Active Alli Frye MD Active QUETIAPINE FUMARATE 25 MG ORAL TABLET take 1 tab po qhs for anxiety QUETIAPINE FUMARATE 08123338236 Active Alli Frye MD Active METOPROLOL TARTRATE 25 MG ORAL TABLET take 1 tab po daily METOPROLOL TARTRATE 74285371885 Active Alli Frye MD Active HYDROXYZINE HCL 50 MG ORAL TABLET 1 tab po BID as needed for anxiety HYDROXYZINE HCL 10265945445 No Longer Active Alli Frye MD Active ZOLOFT 100 MG ORAL TABLET take 2 tabs po qday for mood and headaches. SERTRALINE HCL 68670358532 Active Juliane Melendez LPN Active BUSPIRONE HCL 10 MG ORAL TABLET 1 TAB PO PRN BUSPIRONE HCL 58068747627 No Longer Active Juliane Melendez LPN Active ALPRAZOLAM 0.5 MG ORAL TABLET take 1 tab po qday prn anxiety 2016 ALPRAZOLAM 96446455011 No Longer Active Tatyana Lam Active LORAZEPAM 0.5 MG ORAL TABLET take 1 tab po qday prn anxiety attacks LORAZEPAM 51190638549 No Longer Active Alli Frye MD Active RANITIDINE HCL 300 MG ORAL CAPSULE 1 tablet by mouth daily prn acid reflux RANITIDINE HCL 02177189833 Active Alli Frye MD Active AMITRIPTYLINE HCL 25 MG ORAL TABLET 1 tab by mouth daily at bedtime AMITRIPTYLINE HCL 06874650235 No Longer Active Alli Frye MD Active ZOLOFT 50 MG ORAL TABLET 1 tablet by mouth daily for mood and headache 07/10 SERTRALINE HCL 39433207813 No Longer Active Alli Frye MD Active AMITRIPTYLINE HCL 50 MG ORAL TABLET 1 po qhs for migraine AMITRIPTYLINE HCL 71272297919 No Longer Active Alli Frye MD Active LEVOTHYROXINE SODIUM 112 MCG ORAL TABLET 1 pill by mouth daily for thyroid LEVOTHYROXINE SODIUM 91931409455 Active Alli Frye MD Active AMITRIPTYLINE HCL 50 MG ORAL TABLET 1 pill by mouth nightly, for migraine prevention AMITRIPTYLINE HCL 58501614785 No Longer Active Alli Frye MD Active MAGNESIUM OXIDE 400 MG ORAL CAPSULE 1 po with migraine MAGNESIUM OXIDE 22670665101 No Longer Active Alli Frye MD Active AMITRIPTYLINE HCL 75 MG ORAL TABLET take 1 tab po qhs for migraines. AMITRIPTYLINE HCL 16862749241 No Longer Active Alli Frye MD Active MULTIVITAMIN GUMMIES ADULT ORAL TABLET CHEWABLE MULTIPLE VITAMINS-MINERALS 03362494810 Active Alli Frye MD Active TRANSDERM-SCOP (1.5 MG) 1 MG/3DAYS TRANSDERMAL PATCH 72 HOUR 1 patch every 3 days, as needed for motion sickness, start at least 4 hours hours prior to departure SCOPOLAMINE BASE 96083972773 No Longer Active Alli Frye MD Active LEVOTHYROXINE SODIUM 125 MCG ORAL TABLET 1 pill by mouth daily, for thyroid LEVOTHYROXINE SODIUM 85388444853 No Longer Active Alli Frye MD Active ZOFRAN ODT 4 MG ORAL TABLET DISINTEGRATING 1 pill dissolved by mouth every 4 hours if needed for nausea ONDANSETRON 12284947738 Active Tamera Mustafa MD PhD Active SUMATRIPTAN 20 MG/ACT NASAL SOLUTION 1 spray in one nostril at onset of migraine; may repeat in 2 hours if needed for continued migraine SUMATRIPTAN 77401150720 No Longer Active Tamera Mustafa MD PhD Active ZOFRAN ODT 4 MG ORAL TABLET DISINTEGRATING 1 po q6hr PRN Nausea ONDANSETRON 54543494954 No Longer Active Jr Morrow MD Active EXCEDRIN MIGRAINE 250-250-65 MG ORAL TABLET 1 tab po as needed [id number]-VYSTUDAL 64476177563 Active Jr Morrow MD Active ZOMIG 5 MG ORAL TABLET Take 1 tablet by mouth daily as needed ZOLMITRIPTAN 17126006629 No Longer Active Jr Morrow MD Active BACTRIM DS 800-160 MG ORAL TABLET 1 tab by mouth twice daily 2013 TRIMETHOPRIM-SULFAMETHOXAZOLE 67530163985 No Longer Active Tamera Mustafa MD PhD Active ZITHROMAX Z-ADALGISA 250 MG ORAL TABLET 2 today, then 1 daily for 4 days AZITHROMYCIN 73579293450 No Longer Active Tor Gramajo MD Active MINOCYCLINE HCL 50 MG ORAL CAPSULE 1 pill by mouth daily for acne MINOCYCLINE HCL 47263198709 No Longer Active Tor Gramajo MD Active AXERT 12.5 MG ORAL TABLET 1 tablet by mouth at onset of migraine; may repeat x 1 if headache is still present in 2 hours ALMOTRIPTAN MALATE 71338139853 No Longer Active Tamera Mustafa MD PhD Active ELIMITE 5 % EXTERNAL CREAM Apply from head to toe including scalp and soles of feet. Wash off after 8 hours. PERMETHRIN 11889320212 No Longer Active Tamera Mustafa MD PhD Active AMOXICILLIN 500 MG ORAL TABLET 2 PO bid x 10 days AMOXICILLIN 85829366319 No Longer Active Tamera Mustafa MD PhD Active MAXALT 5 MG ORAL TABLET 1 pill by mouth at start of migraine; may repeat x 1 if no improvement in 2 hours RIZATRIPTAN BENZOATE 65033672708 No Longer Active Tamera Mustafa MD PhD Active BACTRIM DS 800-160 MG ORAL TABLET 1 tab by mouth twice daily 2012 TRIMETHOPRIM-SULFAMETHOXAZOLE 77698663692 No Longer Active Alli Frye MD Active TRI-SPRINTEC 0.18/0.215/0.25 MG-35 MCG ORAL TABLET 1 po qd as directed 06/28 NORGESTIM-ETH ESTRAD TRIPHASIC 94770443104 Active Alli Frye MD Active AXERT 6.25 MG ORAL TABLET 1 pill by mouth at start of migraine; may repeat x 1 in 1 hr if needed ALMOTRIPTAN MALATE 37906940690 No Longer Active Tamera Mustafa MD PhD Active GENERESS FE 0.8-25 MG-MCG ORAL TABLET CHEWABLE 1 daily NORETHIN-ETH ESTRADIOL-FE 73495577623 No Longer Active Tamera Mustafa MD PhD Active DOXYCYCLINE HYCLATE 50 MG ORAL CAPSULE 1 pill by mouth daily for acne DOXYCYCLINE HYCLATE 07376179256 No Longer Active Tamera Mustafa MD PhD Active AMOXICILLIN 875 MG ORAL TABLET 1 TWO TIMES A DAY AMOXICILLIN 04841018446 No Longer Active Sera Mcdowell MD Active AMOXICILLIN 875 MG ORAL TABLET 1 TWO TIMES A DAY AMOXICILLIN 875 MG ORAL TABLET 880193 AMOXICILLIN Inactive DOXYCYCLINE HYCLATE 50 MG ORAL CAPSULE 1 pill by mouth daily for acne DOXYCYCLINE HYCLATE 50 MG ORAL CAPSULE 3978096 DOXYCYCLINE HYCLATE Inactive GENERESS FE 0.8-25 MG-MCG ORAL TABLET CHEWABLE 1 daily GENERESS FE 0.8-25 MG-MCG ORAL TABLET CHEWABLE 7791321 NORETHIN-ETH ESTRADIOL-FE Inactive AXERT 6.25 MG ORAL TABLET 1 pill by mouth at start of migraine; may repeat x 1 in 1 hr if needed AXERT 6.25 MG ORAL TABLET 151953 ALMOTRIPTAN MALATE Inactive MAXALT 5 MG ORAL TABLET 1 pill by mouth at start of migraine; may repeat x 1 if no improvement in 2 hours MAXALT 5 MG ORAL TABLET 745477 RIZATRIPTAN BENZOATE Inactive AMOXICILLIN 500 MG ORAL TABLET 2 PO bid x 10 days AMOXICILLIN 500 MG ORAL TABLET 032696 AMOXICILLIN Inactive ELIMITE 5 % EXTERNAL CREAM Apply from head to toe including scalp and soles of feet. Wash off after 8 hours. ELIMITE 5 % EXTERNAL CREAM 482360 PERMETHRIN Inactive AXERT 12.5 MG ORAL TABLET 1 tablet by mouth at onset of migraine; may repeat x 1 if headache is still present in 2 hours AXERT 12.5 MG ORAL TABLET 792525 ALMOTRIPTAN MALATE Inactive MINOCYCLINE HCL 50 MG ORAL CAPSULE 1 pill by mouth daily for acne MINOCYCLINE HCL 50 MG ORAL CAPSULE 399718 MINOCYCLINE HCL Inactive ZOMIG 5 MG ORAL TABLET Take 1 tablet by mouth daily as needed ZOMIG 5 MG ORAL TABLET 434055 ZOLMITRIPTAN Inactive ZOFRAN ODT 4 MG ORAL TABLET DISINTEGRATING 1 po q6hr PRN Nausea ZOFRAN ODT 4 MG ORAL TABLET DISINTEGRATING 873333 ONDANSETRON Inactive SUMATRIPTAN 20 MG/ACT NASAL SOLUTION 1 spray in one nostril at onset of migraine; may repeat in 2 hours if needed for continued migraine SUMATRIPTAN 20 MG/ACT NASAL SOLUTION 494938 SUMATRIPTAN Inactive LEVOTHYROXINE SODIUM 125 MCG ORAL TABLET 1 pill by mouth daily, for thyroid LEVOTHYROXINE SODIUM 125 MCG ORAL TABLET 842146 LEVOTHYROXINE SODIUM Inactive TRANSDERM-SCOP (1.5 MG) 1 MG/3DAYS TRANSDERMAL PATCH 72 HOUR 1 patch every 3 days, as needed for motion sickness, start at least 4 hours hours prior to departure TRANSDERM-SCOP (1.5 MG) 1 MG/3DAYS TRANSDERMAL PATCH 72 HOUR SCOPOLAMINE BASE Inactive AMITRIPTYLINE HCL 75 MG ORAL TABLET take 1 tab po qhs for migraines. AMITRIPTYLINE HCL 75 MG ORAL TABLET 007121 AMITRIPTYLINE HCL Inactive MAGNESIUM OXIDE 400 MG ORAL CAPSULE 1 po with migraine MAGNESIUM OXIDE 400 MG ORAL CAPSULE 116684 MAGNESIUM OXIDE Inactive AMITRIPTYLINE HCL 50 MG ORAL TABLET 1 pill by mouth nightly, for migraine prevention AMITRIPTYLINE HCL 50 MG ORAL TABLET 174625 AMITRIPTYLINE HCL Inactive AMITRIPTYLINE HCL 50 MG ORAL TABLET 1 po qhs for migraine AMITRIPTYLINE HCL 50 MG ORAL TABLET 805911 AMITRIPTYLINE HCL Inactive ZOLOFT 50 MG ORAL TABLET 1 tablet by mouth daily for mood and headache 07/10 ZOLOFT 50 MG ORAL TABLET 495094 SERTRALINE HCL Inactive AMITRIPTYLINE HCL 25 MG ORAL TABLET 1 tab by mouth daily at bedtime AMITRIPTYLINE HCL 25 MG ORAL TABLET 213997 AMITRIPTYLINE HCL Inactive LORAZEPAM 0.5 MG ORAL TABLET take 1 tab po qday prn anxiety attacks LORAZEPAM 0.5 MG ORAL TABLET 600330 LORAZEPAM Inactive ALPRAZOLAM 0.5 MG ORAL TABLET take 1 tab po qday prn anxiety 2016 ALPRAZOLAM 0.5 MG ORAL TABLET 144842 ALPRAZOLAM Inactive BUSPIRONE HCL 10 MG ORAL TABLET 1 TAB PO PRN BUSPIRONE HCL 10 MG ORAL TABLET 586840 BUSPIRONE HCL Inactive HYDROXYZINE HCL 50 MG ORAL TABLET 1 tab po BID as needed for anxiety HYDROXYZINE HCL 50 MG ORAL TABLET 540315 HYDROXYZINE HCL Inactive BACTRIM DS 800-160 MG ORAL TABLET 1 tab by mouth twice daily 2012 BACTRIM DS 800-160 MG ORAL TABLET 948947 TRIMETHOPRIM- SULFAMETHOXAZOLE Inactive ZITHROMAX Z-ADALGISA 250 MG ORAL TABLET 2 today, then 1 daily for 4 days ZITHROMAX Z-ADALGISA 250 MG ORAL TABLET 409475 AZITHROMYCIN Inactive BACTRIM DS 800-160 MG ORAL TABLET 1 tab by mouth twice daily 2013 BACTRIM DS 800-160 MG ORAL TABLET 363738 TRIMETHOPRIM- SULFAMETHOXAZOLE Inactive Advance Directives Directive Description Start Date CONSENT: MEDICATION HISTORY CONSENT FOR MINOR CARE Immunizations Vaccine Administration Date Value Standard Description Adacel (Tetanus, reduced Diphtheria, and acellular Pertussis Immunization) Adacel [[id number]] tetanus toxoid, reduced diphtheria toxoid, and acellular [...] 0.36-3.74 Encounters Code Encounter Date Provider Facility CPT-77109 Level 4 Est. Patient 15:50:37 HIGH RISK CASE MANAGER Alli Frye MD [facility] CPT-79513 Level 4 Est. Patient 23:05:57 CDT Alli Frye MD [facility] CPT-92136 Level 4 Est. Patient 12:25:34 CDT Alli Frey MD [facility] CPT-68848 Level 4 Est. Patient 13:40:53 CDT Alli Frye MD [facility] CPT-11927 Level 4 Est. Patient 13:18:45 HIGH RISK CASE MANAGER Alli Frye MD [facility] CPT-29265 Level 4 Est. Patient 11:32:52 HIGH RISK CASE MANAGER Alli Frye MD [facility] CPT-81164 Level 4 Est. Patient 14:47:16 CDT Alli Frye MD [facility] CPT-07297 Level 3 Est. Patient 17:25:12 CDT Tamera Mustafa MD PhD [facility] CPT-35859 Level 3 Est. Patient 15:47:52 CDT Jr Morrow MD [facility] CPT-23655 Level 3 Est. Patient 17:07:09 HIGH RISK CASE MANAGER Tor Gramajo MD [facility] CPT-27441 Level 3 Est. Patient 11:34:16 CDT Gerson EMANUEL [facility] CPT-08222 Level 3 Est. Patient 16:33:58 CDT Edyta Otto APRN [facility] CPT-84884 Level 3 Est. Patient 15:17:40 HIGH RISK CASE MANAGER Sera Mcdowell MD [facility] CPT-79145 Level 3 Est. Patient 16:32:34 HIGH RISK CASE MANAGER Sera Mcdowell MD [facility] Procedures Code Procedure Name Date Entry Date Standard Description CPT-89047 First Vx - Ix admin via ID IM or jet injects without counseling by physician 15:09:59 CDT CPT-38858 Menveo Intramuscular Solution Reconstituted 15:09:59 CDT CPT-56245 Meningococcal Conjugate Vacine (Menactra) 12:25:34 CDT CPT-18012 Abd compl w upright 16:06:21 CDT CPT-PV Prev. Care Visit 12:33:36 HIGH RISK CASE MANAGER
--- OUTSIDE RECORDS SUMMARY | 2018-01-18 03:23 | XMS REPORT | Clinical Summary ---
Author Author Admin, WILBERT Organization [employer] Address Unknown Phone Unavailable Allergies, Adverse Reactions, [...] Generic Name NDC Status Provider Patient Instruction HYDROXYZINE HCL 50 MG TABS 1 tab po BID as needed for anxiety HYDROXYZINE HCL 91312291182 Active Juliane Melendez LPN Active ZOLOFT 100 MG TAB take 2 tabs po qday for mood and headaches. SERTRALINE HCL 33526669658 Active Juliane Melendez LPN Active BUSPIRONE HCL 10 MG ORAL TABLET 1 TAB PO PRN BUSPIRONE HCL 76933402920 No Longer Active Juliane Melendez LPN Active ALPRAZOLAM 0.5 MG TAB take 1 tab po qday prn anxiety ALPRAZOLAM 70811995594 No Longer Active Tatyana Lam Active LORAZEPAM 0.5 MG TAB take 1 tab po qday prn anxiety attacks 11/04 LORAZEPAM 50712018733 No Longer Active Alli Frye MD Active RANITIDINE HCL 300 MG CAPS 1 tablet by mouth daily prn acid reflux RANITIDINE HCL 12223248052 Active Alli Frye MD Active METOPROLOL TARTRATE 25 MG ORAL TABS take 1 tab po BID METOPROLOL TARTRATE 60812639858 Active Alli Frye MD Active AMITRIPTYLINE HCL 25 MG TAB 1 tab by mouth daily at bedtime 11/04 AMITRIPTYLINE HCL 02437521803 No Longer Active Alli Frye MD Active ZOLOFT 50 MG TAB 1 tablet by mouth daily for mood and headache SERTRALINE HCL 51399049922 No Longer Active Alli Frye MD Active AMITRIPTYLINE HCL 50 MG TAB 1 po qhs for migraine AMITRIPTYLINE HCL 17849204437 No Longer Active Alli Frye MD Active LEVOTHYROXINE SODIUM 112 MCG TABS 1 pill by mouth daily for thyroid LEVOTHYROXINE SODIUM 41236734964 Active Alli Frye MD Active AMITRIPTYLINE HCL 50 MG ORAL TABS 1 pill by mouth nightly, for migraine prevention AMITRIPTYLINE HCL 88355788476 No Longer Active Alli Frye MD Active MAGNESIUM OXIDE 400 MG CAPS 1 po with migraine MAGNESIUM OXIDE 43188587141 No Longer Active Alli Frye MD Active AMITRIPTYLINE HCL 75 MG TAB take 1 tab po qhs for migraines. 2016 AMITRIPTYLINE HCL 02694050247 No Longer Active Alli Frye MD Active MULTIVITAMIN GUMMIES ADULT CHEW MULTIPLE VITAMINS-MINERALS 13857324738 Active Alli Frye MD Active TRANSDERM-SCOP 1.5 MG TRANS PT72 1 patch every 3 days, as needed for motion sickness, start at least 4 hours hours prior to departure SCOPOLAMINE BASE 31674048645 No Longer Active Alli Frye MD Active LEVOTHYROXINE SODIUM 125 MCG ORAL TABS 1 pill by mouth daily, for thyroid LEVOTHYROXINE SODIUM 46056426813 No Longer Active Alli Frye MD Active ZOFRAN ODT 4 MG TBDP 1 pill dissolved by mouth every 4 hours if needed for nausea ONDANSETRON 82350869070 Active Tamera Mustafa MD PhD Active SUMATRIPTAN 20 MG/ACT SOLN 1 spray in one nostril at onset of migraine; may repeat in 2 hours if needed for continued migraine SUMATRIPTAN 11325097703 No Longer Active Tamera Mustafa MD PhD Active ZOFRAN ODT 4 MG TBDP 1 po q6hr PRN Nausea ONDANSETRON 26324873593 No Longer Active Jr Morrow MD Active EXCEDRIN MIGRAINE 250-250-65 MG TABS 1 tab po as needed [id number] 25398109904 Active Jr Morrow MD Active ZOMIG 5 MG TABS Take 1 tablet by mouth daily as needed ZOLMITRIPTAN 92929955760 No Longer Active Jr Morrow MD Active BACTRIM DS 800-160 MG TAB 1 tab by mouth twice daily TRIMETHOPRIM-SULFAMETHOXAZOLE 99676500265 No Longer Active Tamera Mustafa MD PhD Active ZITHROMAX Z-ADALGISA 250 MG TABS 2 today, then 1 daily for 4 days 2013 AZITHROMYCIN 80577618290 No Longer Active Tor Gramajo MD Active MINOCYCLINE HCL 50 MG CAP 1 pill by mouth daily for acne MINOCYCLINE HCL 94765299251 No Longer Active Tor Gramajo MD Active AXERT 12.5 MG TABS 1 tablet by mouth at onset of migraine; may repeat x 1 if headache is still present in 2 hours ALMOTRIPTAN MALATE 28626775618 No Longer Active Tamera Mustafa MD PhD Active ELIMITE 5 % CREA Apply from head to toe including scalp and soles of feet. Wash off after 8 hours. PERMETHRIN 09971856762 No Longer Active Tamera Mustafa MD PhD Active AMOXICILLIN 500 MG TABS 2 PO bid x 10 days AMOXICILLIN 55090979290 No Longer Active Tamera Mustafa MD PhD Active MAXALT 5 MG TABS 1 pill by mouth at start of migraine; may repeat x 1 if no improvement in 2 hours RIZATRIPTAN BENZOATE 18878039796 No Longer Active Tamera Mustafa MD PhD Active BACTRIM DS 800-160 MG TAB 1 tab by mouth twice daily TRIMETHOPRIM-SULFAMETHOXAZOLE 20246722743 No Longer Active Alli Frye MD Active TRI-SPRINTEC 0.18/0.215/0.25 MG-35 MCG TABS 1 po qd as directed NORGESTIM-ETH ESTRAD TRIPHASIC 87347122363 Active Alli Frye MD Active AXERT 6.25 MG TABS 1 pill by mouth at start of migraine; may repeat x 1 in 1 hr if needed ALMOTRIPTAN MALATE 68625774876 No Longer Active Tamera Mustafa MD PhD Active GENERESS FE 0.8-25 MG-MCG CHEW 1 daily NORETHIN-ETH ESTRADIOL-FE 95920473888 No Longer Active Tamera Mustafa MD PhD Active DOXYCYCLINE HYCLATE 50 MG CAP 1 pill by mouth daily for acne 2012 DOXYCYCLINE HYCLATE 52599261560 No Longer Active Tamera Mustafa MD PhD Active AMOXICILLIN 875 MG TABS 1 TWO TIMES A DAY AMOXICILLIN 03000431665 No Longer Active Sera Mcdowell MD Active AMOXICILLIN 875 MG TABS 1 TWO TIMES A DAY AMOXICILLIN 875 MG TABS 127074 AMOXICILLIN Inactive DOXYCYCLINE HYCLATE 50 MG CAP 1 pill by mouth daily for acne 2012 DOXYCYCLINE HYCLATE 50 MG CAP 3869944 DOXYCYCLINE HYCLATE Inactive GENERESS FE 0.8-25 MG-MCG CHEW 1 daily GENERESS FE 0.8-25 MG-MCG CHEW 3143016 NORETHIN-ETH ESTRADIOL-FE Inactive AXERT 6.25 MG TABS 1 pill by mouth at start of migraine; may repeat x 1 in 1 hr if needed AXERT 6.25 MG TABS 888978 ALMOTRIPTAN MALATE Inactive MAXALT 5 MG TABS 1 pill by mouth at start of migraine; may repeat x 1 if no improvement in 2 hours MAXALT 5 MG TABS 605991 RIZATRIPTAN BENZOATE Inactive AMOXICILLIN 500 MG TABS 2 PO bid x 10 days AMOXICILLIN 500 MG TABS 310700 AMOXICILLIN Inactive ELIMITE 5 % CREA Apply from head to toe including scalp and soles of feet. Wash off after 8 hours. ELIMITE 5 % CREA 413056 PERMETHRIN Inactive AXERT 12.5 MG TABS 1 tablet by mouth at onset of migraine; may repeat x 1 if headache is still present in 2 hours AXERT 12.5 MG TABS 082150 ALMOTRIPTAN MALATE Inactive MINOCYCLINE HCL 50 MG CAP 1 pill by mouth daily for acne MINOCYCLINE HCL 50 MG CAP 093705 MINOCYCLINE HCL Inactive ZOMIG 5 MG TABS Take 1 tablet by mouth daily as needed ZOMIG 5 MG TABS 004861 ZOLMITRIPTAN Inactive ZOFRAN ODT 4 MG TBDP 1 po q6hr PRN Nausea ZOFRAN ODT 4 MG TBDP 565258 ONDANSETRON Inactive SUMATRIPTAN 20 MG/ACT SOLN 1 spray in one nostril at onset of migraine; may repeat in 2 hours if needed for continued migraine SUMATRIPTAN 20 MG/ACT SOLN 435192 SUMATRIPTAN Inactive LEVOTHYROXINE SODIUM 125 MCG ORAL TABS 1 pill by mouth daily, for thyroid LEVOTHYROXINE SODIUM 125 MCG ORAL TABS 160496 LEVOTHYROXINE SODIUM Inactive TRANSDERM-SCOP 1.5 MG TRANS PT72 1 patch every 3 days, as needed for motion sickness, start at least 4 hours hours prior to departure TRANSDERM-SCOP 1.5 MG TRANS PT72 SCOPOLAMINE BASE Inactive AMITRIPTYLINE HCL 75 MG TAB take 1 tab po qhs for migraines. 2016 AMITRIPTYLINE HCL 75 MG TAB 909913 AMITRIPTYLINE HCL Inactive MAGNESIUM OXIDE 400 MG CAPS 1 po with migraine MAGNESIUM OXIDE 400 MG CAPS 387038 MAGNESIUM OXIDE Inactive AMITRIPTYLINE HCL 50 MG ORAL TABS 1 pill by mouth nightly, for migraine prevention AMITRIPTYLINE HCL 50 MG ORAL TABS 739175 AMITRIPTYLINE HCL Inactive AMITRIPTYLINE HCL 50 MG TAB 1 po qhs for migraine AMITRIPTYLINE HCL 50 MG TAB 295108 AMITRIPTYLINE HCL Inactive ZOLOFT 50 MG TAB 1 tablet by mouth daily for mood and headache ZOLOFT 50 MG TAB 770633 SERTRALINE HCL Inactive AMITRIPTYLINE HCL 25 MG TAB 1 tab by mouth daily at bedtime 11/04 AMITRIPTYLINE HCL 25 MG TAB 629635 AMITRIPTYLINE HCL Inactive LORAZEPAM 0.5 MG TAB take 1 tab po qday prn anxiety attacks 11/04 LORAZEPAM 0.5 MG TAB 543767 LORAZEPAM Inactive ALPRAZOLAM 0.5 MG TAB take 1 tab po qday prn anxiety ALPRAZOLAM 0.5 MG TAB 755030 ALPRAZOLAM Inactive BUSPIRONE HCL 10 MG ORAL TABLET 1 TAB PO PRN BUSPIRONE HCL 10 MG ORAL TABLET 647791 BUSPIRONE HCL Inactive BACTRIM DS 800-160 MG TAB 1 tab by mouth twice daily BACTRIM DS 800-160 MG TAB 746118 TRIMETHOPRIM-SULFAMETHOXAZOLE Inactive ZITHROMAX Z-ADALGISA 250 MG TABS 2 today, then 1 daily for 4 days 2013 ZITHROMAX Z-ADALGISA 250 MG TABS 265956 AZITHROMYCIN Inactive BACTRIM DS 800-160 MG TAB 1 tab by mouth twice daily BACTRIM DS 800-160 MG TAB 19820713 TRIMETHOPRIM-SULFAMETHOXAZOLE Inactive Advance Directives Directive Description Start Date CONSENT: MEDICATION HISTORY CONSENT FOR MINOR CARE Immunizations Vaccine Administration Date Value Standard Description Adacel (Tetanus, reduced Diphtheria, and acellular Pertussis Immunization) Adacel [[id number]] tetanus toxoid, reduced diphtheria toxoid, and acellular [...] 0.36-3.74 Encounters Code Encounter Date Provider Facility CPT-49556 Level 4 Est. Patient 23:05:57 CDT Alli Frye MD [facility] CPT-48779 Level 4 Est. Patient 12:25:34 CDT Alli Frye MD [facility] CPT-40185 Level 4 Est. Patient 13:40:53 CDT Alli Frye MD [facility] CPT-25960 Level 4 Est. Patient 13:18:45 HOURLY SALES STAFF Alli Frye MD [facility] CPT-50320 Level 4 Est. Patient 11:32:52 HOURLY SALES STAFF Alli Frye MD [facility] CPT-24160 Level 4 Est. Patient 14:47:16 CDT Alli Frye MD [facility] CPT-62138 Level 3 Est. Patient 17:25:12 CDT Tamera Mustafa MD, PhD [facility] CPT-38715 Level 3 Est. Patient 15:47:52 CDT Jr Morrow MD [facility] CPT-89134 Level 3 Est. Patient 17:07:09 HOURLY SALES STAFF Tor Gramajo MD [facility] CPT-29644 Level 3 Est. Patient 11:34:16 CDT Gerson EMANUEL [facility] CPT-98115 Level 3 Est. Patient 16:33:58 CDT Edyta Otto APRN [facility] CPT-09191 Level 3 Est. Patient 15:17:40 HOURLY SALES STAFF Sera Mcdowell MD [facility] CPT-55072 Level 3 Est. Patient 16:32:34 HOURLY SALES STAFF Sera Mcdowell MD [facility] Procedures Code Procedure Name Date Entry Date Standard Description CPT-10164 First Vx - Ix admin via ID IM or jet injects without counseling by physician 15:09:59 CDT CPT-32675 Menveo Intramuscular Solution Reconstituted 15:09:59 CDT CPT-79783 Meningococcal Conjugate Vacine (Menactra) 12:25:34 CDT CPT-83997 Abd compl w upright 16:06:21 CDT CPT-PV Prev. Care Visit 12:33:36 HOURLY SALES STAFF
--- OUTSIDE RECORDS SUMMARY | 2018-01-18 03:23 | XMS REPORT | Clinical Summary ---
Author Author Admin, QIE Organization [facility] Address Unknown Phone Unavailable Allergies, Adverse [...] daily for mood and headache SERTRALINE HCL 44075622196 No Longer Active Alli Frye MD Active AMITRIPTYLINE HCL 50 MG TAB 1 po qhs for migraine AMITRIPTYLINE HCL 47567248885 No Longer Active Alli Frye MD Active AMITRIPTYLINE HCL 25 MG TAB 1 tab by mouth daily at bedtime AMITRIPTYLINE HCL 58116735000 Active Alli Frye MD Active ZOLOFT 100 MG TAB take 1 tab po qday for mood and headaches. SERTRALINE HCL 63531115880 Active Alli Frye MD Active LEVOTHYROXINE SODIUM 112 MCG TABS 1 pill by mouth daily for thyroid LEVOTHYROXINE SODIUM 30342050984 Active Alli Frye MD Active AMITRIPTYLINE HCL 50 MG ORAL TABS 1 pill by mouth nightly, for migraine prevention AMITRIPTYLINE HCL 58688242057 No Longer Active Alli Frye MD Active MAGNESIUM OXIDE 400 MG CAPS 1 po with migraine MAGNESIUM OXIDE 09453473045 No Longer Active Alli Frye MD Active AMITRIPTYLINE HCL 75 MG TAB take 1 tab po qhs for migraines. 2016 AMITRIPTYLINE HCL 87360324994 No Longer Active Alli Frye MD Active LORAZEPAM 0.5 MG TAB take 1 tab po qday prn anxiety attacks LORAZEPAM 46549524734 Active Alli Frye MD Active MULTIVITAMIN GUMMIES ADULT CHEW MULTIPLE VITAMINS-MINERALS 18241819776 Active Alli Frye MD Active TRANSDERM-SCOP 1.5 MG TRANS PT72 1 patch every 3 days, as needed for motion sickness, start at least 4 hours hours prior to departure SCOPOLAMINE BASE 65552051692 No Longer Active Alli Frye MD Active LEVOTHYROXINE SODIUM 125 MCG ORAL TABS 1 pill by mouth daily, for thyroid LEVOTHYROXINE SODIUM 87991370793 No Longer Active Alli Frye MD Active ZOFRAN ODT 4 MG TBDP 1 pill dissolved by mouth every 4 hours if needed for nausea ONDANSETRON 71346231424 Active Tamera Mustafa MD PhD Active SUMATRIPTAN 20 MG/ACT SOLN 1 spray in one nostril at onset of migraine; may repeat in 2 hours if needed for continued migraine SUMATRIPTAN 29566128877 No Longer Active Tamera Mustafa MD PhD Active ZOFRAN ODT 4 MG TBDP 1 po q6hr PRN Nausea ONDANSETRON 54892580148 No Longer Active Jr Morrow MD Active EXCEDRIN MIGRAINE 250-250-65 MG TABS 1 tab po as needed [id number] 99056099128 Active Jr Morrow MD Active ZOMIG 5 MG TABS Take 1 tablet by mouth daily as needed ZOLMITRIPTAN 59303812058 No Longer Active Jr Morrow MD Active BACTRIM DS 800-160 MG TAB 1 tab by mouth twice daily TRIMETHOPRIM-SULFAMETHOXAZOLE 83441572886 No Longer Active Tamera Mustafa MD PhD Active ZITHROMAX Z-ADALGISA 250 MG TABS 2 today, then 1 daily for 4 days 2013 AZITHROMYCIN 68445496252 No Longer Active Tor Gramajo MD Active MINOCYCLINE HCL 50 MG CAP 1 pill by mouth daily for acne MINOCYCLINE HCL 83247155636 No Longer Active Tor Gramajo MD Active AXERT 12.5 MG TABS 1 tablet by mouth at onset of migraine; may repeat x 1 if headache is still present in 2 hours ALMOTRIPTAN MALATE 64793078465 No Longer Active Tamera Mustafa MD PhD Active ELIMITE 5 % CREA Apply from head to toe including scalp and soles of feet. Wash off after 8 hours. PERMETHRIN 38439438605 No Longer Active Tamera Mustafa MD PhD Active AMOXICILLIN 500 MG TABS 2 PO bid x 10 days AMOXICILLIN 78444710035 No Longer Active Tamera Mustafa MD PhD Active MAXALT 5 MG TABS 1 pill by mouth at start of migraine; may repeat x 1 if no improvement in 2 hours RIZATRIPTAN BENZOATE 03059574317 No Longer Active Tamera Mustafa MD PhD Active BACTRIM DS 800-160 MG TAB 1 tab by mouth twice daily TRIMETHOPRIM-SULFAMETHOXAZOLE 27023042059 No Longer Active Alli Frye MD Active TRI-SPRINTEC 0.18/0.215/0.25 MG-35 MCG TABS 1 po qd as directed NORGESTIM-ETH ESTRAD TRIPHASIC 90055423733 Active Alli Frye MD Active AXERT 6.25 MG TABS 1 pill by mouth at start of migraine; may repeat x 1 in 1 hr if needed ALMOTRIPTAN MALATE 99677965101 No Longer Active Tamera Mustafa MD PhD Active GENERESS FE 0.8-25 MG-MCG CHEW 1 daily NORETHIN-ETH ESTRADIOL-FE 08794273789 No Longer Active Tamera Mustafa MD PhD Active DOXYCYCLINE HYCLATE 50 MG CAP 1 pill by mouth daily for acne 2012 DOXYCYCLINE HYCLATE 32330458888 No Longer Active Tamera Mustafa MD PhD Active AMOXICILLIN 875 MG TABS 1 TWO TIMES A DAY AMOXICILLIN 44532011669 No Longer Active Sera Mcdowell MD Active AMOXICILLIN 875 MG TABS 1 TWO TIMES A DAY AMOXICILLIN 875 MG TABS 916229 AMOXICILLIN Inactive DOXYCYCLINE HYCLATE 50 MG CAP 1 pill by mouth daily for acne 2012 DOXYCYCLINE HYCLATE 50 MG CAP 0420898 DOXYCYCLINE HYCLATE Inactive GENERESS FE 0.8-25 MG-MCG CHEW 1 daily GENERESS FE 0.8-25 MG-MCG CHEW 5949149 NORETHIN-ETH ESTRADIOL-FE Inactive AXERT 6.25 MG TABS 1 pill by mouth at start of migraine; may repeat x 1 in 1 hr if needed AXERT 6.25 MG TABS 310487 ALMOTRIPTAN MALATE Inactive MAXALT 5 MG TABS 1 pill by mouth at start of migraine; may repeat x 1 if no improvement in 2 hours MAXALT 5 MG TABS 318917 RIZATRIPTAN BENZOATE Inactive AMOXICILLIN 500 MG TABS 2 PO bid x 10 days AMOXICILLIN 500 MG TABS 259550 AMOXICILLIN Inactive ELIMITE 5 % CREA Apply from head to toe including scalp and soles of feet. Wash off after 8 hours. ELIMITE 5 % CREA 812579 PERMETHRIN Inactive AXERT 12.5 MG TABS 1 tablet by mouth at onset of migraine; may repeat x 1 if headache is still present in 2 hours AXERT 12.5 MG TABS 327359 ALMOTRIPTAN MALATE Inactive MINOCYCLINE HCL 50 MG CAP 1 pill by mouth daily for acne MINOCYCLINE HCL 50 MG CAP 274510 MINOCYCLINE HCL Inactive ZOMIG 5 MG TABS Take 1 tablet by mouth daily as needed ZOMIG 5 MG TABS 360024 ZOLMITRIPTAN Inactive ZOFRAN ODT 4 MG TBDP 1 po q6hr PRN Nausea ZOFRAN ODT 4 MG TBDP 228075 ONDANSETRON Inactive SUMATRIPTAN 20 MG/ACT SOLN 1 spray in one nostril at onset of migraine; may repeat in 2 hours if needed for continued migraine SUMATRIPTAN 20 MG/ACT SOLN 784207 SUMATRIPTAN Inactive LEVOTHYROXINE SODIUM 125 MCG ORAL TABS 1 pill by mouth daily, for thyroid LEVOTHYROXINE SODIUM 125 MCG ORAL TABS 779211 LEVOTHYROXINE SODIUM Inactive TRANSDERM-SCOP 1.5 MG TRANS PT72 1 patch every 3 days, as needed for motion sickness, start at least 4 hours hours prior to departure TRANSDERM-SCOP 1.5 MG TRANS PT72 SCOPOLAMINE BASE Inactive AMITRIPTYLINE HCL 75 MG TAB take 1 tab po qhs for migraines. 2016 AMITRIPTYLINE HCL 75 MG TAB 135842 AMITRIPTYLINE HCL Inactive MAGNESIUM OXIDE 400 MG CAPS 1 po with migraine MAGNESIUM OXIDE 400 MG CAPS 596463 MAGNESIUM OXIDE Inactive AMITRIPTYLINE HCL 50 MG ORAL TABS 1 pill by mouth nightly, for migraine prevention AMITRIPTYLINE HCL 50 MG ORAL TABS 511299 AMITRIPTYLINE HCL Inactive AMITRIPTYLINE HCL 50 MG TAB 1 po qhs for migraine AMITRIPTYLINE HCL 50 MG TAB 478881 AMITRIPTYLINE HCL Inactive ZOLOFT 50 MG TAB 1 tablet by mouth daily for mood and headache ZOLOFT 50 MG TAB 488461 SERTRALINE HCL Inactive BACTRIM DS 800-160 MG TAB 1 tab by mouth twice daily BACTRIM DS 800-160 MG TAB 211191 TRIMETHOPRIM-SULFAMETHOXAZOLE Inactive ZITHROMAX Z-ADALGISA 250 MG TABS 2 today, then 1 daily for 4 days 2013 ZITHROMAX Z-ADALGISA 250 MG TABS 0320675 AZITHROMYCIN Inactive BACTRIM DS 800-160 MG TAB 1 tab by mouth twice daily BACTRIM DS 800-160 MG TAB [id number] TRIMETHOPRIM-SULFAMETHOXAZOLE Inactive Advance Directives Directive Description Start Date CONSENT: MEDICATION HISTORY CONSENT FOR MINOR CARE Immunizations Vaccine Administration Date Value Standard Description Adacel (Tetanus, reduced Diphtheria, and acellular Pertussis Immunization) Adacel [[id number]] tetanus toxoid, reduced diphtheria toxoid, and acellular [...] Measured Encounters Code Encounter Date Provider Facility CPT-33323 Level 4 Est. Patient 13:40:53 CDT Alli Frye MD [facility] CPT-23554 Level 4 Est. Patient 13:18:45 MIS SPECIALIST Alli Frye MD [facility] CPT-78487 Level 4 Est. Patient 11:32:52 MIS SPECIALIST Alli Frye MD [facility] CPT-03256 Level 4 Est. Patient 14:47:16 CDT Alli Frye MD [facility] CPT-38093 Level 3 Est. Patient 17:25:12 CDT Tamera Mustafa MD [facility] CPT-66194 Level 3 Est. Patient 15:47:52 CDT Jr Morrow MD [facility] CPT-38863 Level 3 Est. Patient 17:07:09 MIS SPECIALIST Tor Gramajo [facility] CPT-49938 Level 3 Est. Patient 11:34:16 CDT Gerson [facility]MANU[facility] CPT-61016 Level 3 Est. Patient 16:33:58 CDT Edyta Otto APRN [facility] CPT-52611 Level 3 Est. Patient 15:17:40 MIS SPECIALIST Sera Mcdowell MD [facility] CPT-73325 Level 3 Est. Patient 16:32:34 MIS SPECIALIST Sera Mcdowell MD [facility] Procedures Code Procedure Name Date Entry Date Standard Description CPT-75410 Abd compl w upright 16:06:21 CDT CPT-PV Prev. Care Visit 12:33:36 MIS SPECIALIST
--- OUTSIDE RECORDS SUMMARY | 2018-01-18 03:24 | XMS REPORT | Clinical Summary ---
Author Author Admin, WILBERT Organization [employer] Address Unknown Phone Unavailable Allergies, Adverse Reactions, [...] Mcdowell MD Dysuria CONSTIPATION UNSP. 564.00 Resolved Srea Mcdowell MD Constipation, unspecified ACNE 706.1 Active [...] ARRHYTHMIA, INTERMITTENT ICD-427.9 Inactive Sera Mcdowell MD SCABIES ICD-133.0 Inactive Tor Gramajo MD 05/30 Tonsillitis, acute ICD-463 Inactive Tamera Mustafa MD PhD UTI ICD-599.0 Inactive Tamera Mustafa MD PhD THYROMEGALY ICD-240.9 Inactive Tamera Mustafa MD PhD PHARYNGITIS ICD-462 Inactive Tamera Mustafa MD PhD Medication List Medication Instructions Start Date Stop Date Generic Name NDC Status Provider Patient Instruction ALPRAZOLAM 0.5 MG ORAL TABLET take 1 tab po BID prn anxiety ALPRAZOLAM 85121372640 Active Alli Frye MD Active QUETIAPINE FUMARATE 25 MG ORAL TABLET take 1 tab po qhs for anxiety QUETIAPINE FUMARATE 03229357094 Active Alli Frye MD Active METOPROLOL TARTRATE 25 MG ORAL TABLET take 1 tab po daily METOPROLOL TARTRATE 62116778828 Active Alli Frye MD Active HYDROXYZINE HCL 50 MG ORAL TABLET 1 tab po BID as needed for anxiety HYDROXYZINE HCL 60581679768 No Longer Active Alli Frye MD Active ZOLOFT 100 MG ORAL TABLET take 2 tabs po qday for mood and headaches. SERTRALINE HCL 82024126097 Active Juliaen Melendez LPN Active BUSPIRONE HCL 10 MG ORAL TABLET 1 TAB PO PRN BUSPIRONE HCL 40923112482 No Longer Active Juliane Melendez LPN Active ALPRAZOLAM 0.5 MG ORAL TABLET take 1 tab po qday prn anxiety 2016 ALPRAZOLAM 96227982584 No Longer Active Tatyana Lam Active LORAZEPAM 0.5 MG ORAL TABLET take 1 tab po qday prn anxiety attacks LORAZEPAM 45209559692 No Longer Active Alli Frye MD Active RANITIDINE HCL 300 MG ORAL CAPSULE 1 tablet by mouth daily prn acid reflux RANITIDINE HCL 08402762915 Active Alli Frye MD Active AMITRIPTYLINE HCL 25 MG ORAL TABLET 1 tab by mouth daily at bedtime AMITRIPTYLINE HCL 42684819351 No Longer Active Alli Frye MD Active ZOLOFT 50 MG ORAL TABLET 1 tablet by mouth daily for mood and headache 07/10 SERTRALINE HCL 68930158166 No Longer Active Alli Frye MD Active AMITRIPTYLINE HCL 50 MG ORAL TABLET 1 po qhs for migraine AMITRIPTYLINE HCL 11974146601 No Longer Active Alli Frye MD Active LEVOTHYROXINE SODIUM 112 MCG ORAL TABLET 1 pill by mouth daily for thyroid LEVOTHYROXINE SODIUM 39309940801 Active Alli Frye MD Active AMITRIPTYLINE HCL 50 MG ORAL TABLET 1 pill by mouth nightly, for migraine prevention AMITRIPTYLINE HCL 30074740168 No Longer Active Alli Frye MD Active MAGNESIUM OXIDE 400 MG ORAL CAPSULE 1 po with migraine MAGNESIUM OXIDE 52793018802 No Longer Active Alli Frye MD Active AMITRIPTYLINE HCL 75 MG ORAL TABLET take 1 tab po qhs for migraines. AMITRIPTYLINE HCL 94430405791 No Longer Active Alli Frye MD Active MULTIVITAMIN GUMMIES ADULT ORAL TABLET CHEWABLE MULTIPLE VITAMINS-MINERALS 09535064330 Active Alli Frye MD Active TRANSDERM-SCOP (1.5 MG) 1 MG/3DAYS TRANSDERMAL PATCH 72 HOUR 1 patch every 3 days, as needed for motion sickness, start at least 4 hours hours prior to departure SCOPOLAMINE BASE 07061297193 No Longer Active Alli Frye MD Active LEVOTHYROXINE SODIUM 125 MCG ORAL TABLET 1 pill by mouth daily, for thyroid LEVOTHYROXINE SODIUM 08669257529 No Longer Active Alli Frye MD Active ZOFRAN ODT 4 MG ORAL TABLET DISINTEGRATING 1 pill dissolved by mouth every 4 hours if needed for nausea ONDANSETRON 27611304340 Active Tamera Musatfa MD PhD Active SUMATRIPTAN 20 MG/ACT NASAL SOLUTION 1 spray in one nostril at onset of migraine; may repeat in 2 hours if needed for continued migraine SUMATRIPTAN 49251299001 No Longer Active Tamera Mustafa MD PhD Active ZOFRAN ODT 4 MG ORAL TABLET DISINTEGRATING 1 po q6hr PRN Nausea ONDANSETRON 72135480966 No Longer Active Jr Morrow MD Active EXCEDRIN MIGRAINE 250-250-65 MG ORAL TABLET 1 tab po as needed [id number] 53881600907 Active Jr Morrow MD Active ZOMIG 5 MG ORAL TABLET Take 1 tablet by mouth daily as needed ZOLMITRIPTAN 53557056820 No Longer Active Jr Morrow MD Active BACTRIM DS 800-160 MG ORAL TABLET 1 tab by mouth twice daily 2013 TRIMETHOPRIM-SULFAMETHOXAZOLE 07617019534 No Longer Active Tamera Mustafa MD PhD Active ZITHROMAX Z-ADALGISA 250 MG ORAL TABLET 2 today, then 1 daily for 4 days AZITHROMYCIN 93450806376 No Longer Active Tor Gramajo MD Active MINOCYCLINE HCL 50 MG ORAL CAPSULE 1 pill by mouth daily for acne MINOCYCLINE HCL 26081131667 No Longer Active Tor Gramajo MD Active AXERT 12.5 MG ORAL TABLET 1 tablet by mouth at onset of migraine; may repeat x 1 if headache is still present in 2 hours ALMOTRIPTAN MALATE 01111137968 No Longer Active Tamera Mustafa MD PhD Active ELIMITE 5 % EXTERNAL CREAM Apply from head to toe including scalp and soles of feet. Wash off after 8 hours. PERMETHRIN 11104572398 No Longer Active Tamera Mustafa MD PhD Active AMOXICILLIN 500 MG ORAL TABLET 2 PO bid x 10 days AMOXICILLIN 59705877089 No Longer Active Tamera Mustafa MD PhD Active MAXALT 5 MG ORAL TABLET 1 pill by mouth at start of migraine; may repeat x 1 if no improvement in 2 hours RIZATRIPTAN BENZOATE 62908398362 No Longer Active Tamera Mustafa MD PhD Active BACTRIM DS 800-160 MG ORAL TABLET 1 tab by mouth twice daily 2012 TRIMETHOPRIM-SULFAMETHOXAZOLE 62374992439 No Longer Active Alli Frye MD Active TRI-SPRINTEC 0.18/0.215/0.25 MG-35 MCG ORAL TABLET 1 po qd as directed 06/28 NORGESTIM-ETH ESTRAD TRIPHASIC 69966170430 Active Alli Frye MD Active AXERT 6.25 MG ORAL TABLET 1 pill by mouth at start of migraine; may repeat x 1 in 1 hr if needed ALMOTRIPTAN MALATE 84248223595 No Longer Active Tamera Mustafa MD PhD Active GENERESS FE 0.8-25 MG-MCG ORAL TABLET CHEWABLE 1 daily NORETHIN-ETH ESTRADIOL-FE 47624939457 No Longer Active Tamera Mustafa MD PhD Active DOXYCYCLINE HYCLATE 50 MG ORAL CAPSULE 1 pill by mouth daily for acne DOXYCYCLINE HYCLATE 81930079441 No Longer Active Tamera Mustafa MD PhD Active AMOXICILLIN 875 MG ORAL TABLET 1 TWO TIMES A DAY AMOXICILLIN 11399780692 No Longer Active Sera Mcdowell MD Active AMOXICILLIN 875 MG ORAL TABLET 1 TWO TIMES A DAY AMOXICILLIN 875 MG ORAL TABLET 309883 AMOXICILLIN Inactive DOXYCYCLINE HYCLATE 50 MG ORAL CAPSULE 1 pill by mouth daily for acne DOXYCYCLINE HYCLATE 50 MG ORAL CAPSULE 9696906 DOXYCYCLINE HYCLATE Inactive GENERESS FE 0.8-25 MG-MCG ORAL TABLET CHEWABLE 1 daily GENERESS FE 0.8-25 MG-MCG ORAL TABLET CHEWABLE 5052927 NORETHIN-ETH ESTRADIOL-FE Inactive AXERT 6.25 MG ORAL TABLET 1 pill by mouth at start of migraine; may repeat x 1 in 1 hr if needed AXERT 6.25 MG ORAL TABLET 307438 ALMOTRIPTAN MALATE Inactive MAXALT 5 MG ORAL TABLET 1 pill by mouth at start of migraine; may repeat x 1 if no improvement in 2 hours MAXALT 5 MG ORAL TABLET 066813 RIZATRIPTAN BENZOATE Inactive AMOXICILLIN 500 MG ORAL TABLET 2 PO bid x 10 days AMOXICILLIN 500 MG ORAL TABLET 503273 AMOXICILLIN Inactive ELIMITE 5 % EXTERNAL CREAM Apply from head to toe including scalp and soles of feet. Wash off after 8 hours. ELIMITE 5 % EXTERNAL CREAM 320855 PERMETHRIN Inactive AXERT 12.5 MG ORAL TABLET 1 tablet by mouth at onset of migraine; may repeat x 1 if headache is still present in 2 hours AXERT 12.5 MG ORAL TABLET 839890 ALMOTRIPTAN MALATE Inactive MINOCYCLINE HCL 50 MG ORAL CAPSULE 1 pill by mouth daily for acne MINOCYCLINE HCL 50 MG ORAL CAPSULE 507030 MINOCYCLINE HCL Inactive ZOMIG 5 MG ORAL TABLET Take 1 tablet by mouth daily as needed ZOMIG 5 MG ORAL TABLET 408672 ZOLMITRIPTAN Inactive ZOFRAN ODT 4 MG ORAL TABLET DISINTEGRATING 1 po q6hr PRN Nausea ZOFRAN ODT 4 MG ORAL TABLET DISINTEGRATING 378736 ONDANSETRON Inactive SUMATRIPTAN 20 MG/ACT NASAL SOLUTION 1 spray in one nostril at onset of migraine; may repeat in 2 hours if needed for continued migraine SUMATRIPTAN 20 MG/ACT NASAL SOLUTION 536330 SUMATRIPTAN Inactive LEVOTHYROXINE SODIUM 125 MCG ORAL TABLET 1 pill by mouth daily, for thyroid LEVOTHYROXINE SODIUM 125 MCG ORAL TABLET 778908 LEVOTHYROXINE SODIUM Inactive TRANSDERM-SCOP (1.5 MG) 1 MG/3DAYS TRANSDERMAL PATCH 72 HOUR 1 patch every 3 days, as needed for motion sickness, start at least 4 hours hours prior to departure TRANSDERM-SCOP (1.5 MG) 1 MG/3DAYS TRANSDERMAL PATCH 72 HOUR SCOPOLAMINE BASE Inactive AMITRIPTYLINE HCL 75 MG ORAL TABLET take 1 tab po qhs for migraines. AMITRIPTYLINE HCL 75 MG ORAL TABLET 536839 AMITRIPTYLINE HCL Inactive MAGNESIUM OXIDE 400 MG ORAL CAPSULE 1 po with migraine MAGNESIUM OXIDE 400 MG ORAL CAPSULE 814761 MAGNESIUM OXIDE Inactive AMITRIPTYLINE HCL 50 MG ORAL TABLET 1 pill by mouth nightly, for migraine prevention AMITRIPTYLINE HCL 50 MG ORAL TABLET 533504 AMITRIPTYLINE HCL Inactive AMITRIPTYLINE HCL 50 MG ORAL TABLET 1 po qhs for migraine AMITRIPTYLINE HCL 50 MG ORAL TABLET 436149 AMITRIPTYLINE HCL Inactive ZOLOFT 50 MG ORAL TABLET 1 tablet by mouth daily for mood and headache 07/10 ZOLOFT 50 MG ORAL TABLET 300792 SERTRALINE HCL Inactive AMITRIPTYLINE HCL 25 MG ORAL TABLET 1 tab by mouth daily at bedtime AMITRIPTYLINE HCL 25 MG ORAL TABLET 147245 AMITRIPTYLINE HCL Inactive LORAZEPAM 0.5 MG ORAL TABLET take 1 tab po qday prn anxiety attacks LORAZEPAM 0.5 MG ORAL TABLET 318689 LORAZEPAM Inactive ALPRAZOLAM 0.5 MG ORAL TABLET take 1 tab po qday prn anxiety 2016 ALPRAZOLAM 0.5 MG ORAL TABLET 185417 ALPRAZOLAM Inactive BUSPIRONE HCL 10 MG ORAL TABLET 1 TAB PO PRN BUSPIRONE HCL 10 MG ORAL TABLET 459796 BUSPIRONE HCL Inactive HYDROXYZINE HCL 50 MG ORAL TABLET 1 tab po BID as needed for anxiety HYDROXYZINE HCL 50 MG ORAL TABLET 096771 HYDROXYZINE HCL Inactive BACTRIM DS 800-160 MG ORAL TABLET 1 tab by mouth twice daily 2012 BACTRIM DS 800-160 MG ORAL TABLET 388268 TRIMETHOPRIM- SULFAMETHOXAZOLE Inactive ZITHROMAX Z-ADALGISA 250 MG ORAL TABLET 2 today, then 1 daily for 4 days ZITHROMAX Z-ADALGISA 250 MG ORAL TABLET 020651 AZITHROMYCIN Inactive BACTRIM DS 800-160 MG ORAL TABLET 1 tab by mouth twice daily 2013 BACTRIM DS 800-160 MG ORAL TABLET 934100 TRIMETHOPRIM- SULFAMETHOXAZOLE Inactive Advance Directives Directive Description Start Date CONSENT: MEDICATION HISTORY CONSENT FOR MINOR CARE Immunizations Vaccine Administration Date Value Standard Description Adacel (Tetanus, reduced Diphtheria, and acellular Pertussis Immunization) Adacel [[id number]] tetanus toxoid, reduced diphtheria toxoid, and acellular [...] 0.78-1.34 Encounters Code Encounter Date Provider Facility CPT-64015 Level 4 Est. Patient 15:50:37 ONLINE CONTENT DEVELOPER Alli Frye MD [facility]-11873 Level 4 Est. Patient 23:05:57 CDT Alli Frye MD [facility]-75856 Level 4 Est. Patient 12:25:34 CDT Alli Frye MD [facility]-03481 Level 4 Est. Patient 13:40:53 CDT Alli Frye MD [facility]-58728 Level 4 Est. Patient 13:18:45 ONLINE CONTENT DEVELOPER Alli Frye MD [facility]-79667 Level 4 Est. Patient 11:32:52 ONLINE CONTENT DEVELOPER Alli Frye MD [facility]-50356 Level 4 Est. Patient 14:47:16 CDT Alli Frye MD [facility]-96009 Level 3 Est. Patient 17:25:12 CDT Tamera Mustafa MD [facility] CPT-71287 Level 3 Est. Patient 15:47:52 CDT Jr Morrow MD [facility] CPT-74141 Level 3 Est. Patient 17:07:09 ONLINE CONTENT DEVELOPER Tor Gramajo MD [facility] CPT-63291 Level 3 Est. Patient 11:34:16 CDT Gerson EMANUEL [facility] CPT-49126 Level 3 Est. Patient 16:33:58 CDT Edyta Otto APRN [facility] CPT-83261 Level 3 Est. Patient 15:17:40 ONLINE CONTENT DEVELOPER Sera Mcdowell MD [facility] CPT-33268 Level 3 Est. Patient 16:32:34 ONLINE CONTENT DEVELOPER Sera Mcdowell MD [facility] Procedures Code Procedure Name Date Entry Date Standard Description CPT-07348 First Vx - Ix admin via ID IM or jet injects without counseling by physician 15:09:59 CDT CPT-55398 Menveo Intramuscular Solution Reconstituted 15:09:59 CDT CPT-64877 Meningococcal Conjugate Vacine (Menactra) 12:25:34 CDT CPT-37629 Abd compl w upright 16:06:21 CDT CPT-PV Prev. Care Visit 12:33:36 ONLINE CONTENT DEVELOPER
--- OUTSIDE RECORDS SUMMARY | 2018-01-18 03:25 | XMS REPORT | Clinical Summary ---
Author Author Admin, WILBERT Organization [facility] Address Unknown Phone Unavailable Allergies, Adverse Reactions, [...] 1 tab po BID prn anxiety ALPRAZOLAM 76090190789 Active Jr Morrow MD Active QUETIAPINE FUMARATE 25 MG ORAL TABLET take 1 tab po qhs for anxiety QUETIAPINE FUMARATE 91849844319 Active Alli Frye MD Active METOPROLOL TARTRATE 25 MG ORAL TABLET take 1 tab po daily METOPROLOL TARTRATE 93747113325 Active Alli Frye MD Active HYDROXYZINE HCL 50 MG ORAL TABLET 1 tab po BID as needed for anxiety HYDROXYZINE HCL 51214619230 No Longer Active Alli Frye MD Active ZOLOFT 100 MG ORAL TABLET take 2 tabs po qday for mood and headaches. SERTRALINE HCL 71487015886 Active Juliane Melendez LPN Active BUSPIRONE HCL 10 MG ORAL TABLET 1 TAB PO PRN BUSPIRONE HCL 55571726113 No Longer Active Juliane Melendez LPN Active ALPRAZOLAM 0.5 MG ORAL TABLET take 1 tab po qday prn anxiety 2016 ALPRAZOLAM 68231775059 No Longer Active Tatyana Lam Active LORAZEPAM 0.5 MG ORAL TABLET take 1 tab po qday prn anxiety attacks LORAZEPAM 29446765006 No Longer Active Alli Frye MD Active RANITIDINE HCL 300 MG ORAL CAPSULE 1 tablet by mouth daily prn acid reflux RANITIDINE HCL 60814764179 Active Alli Frye MD Active AMITRIPTYLINE HCL 25 MG ORAL TABLET 1 tab by mouth daily at bedtime AMITRIPTYLINE HCL 84398468346 No Longer Active Alli Frye MD Active ZOLOFT 50 MG ORAL TABLET 1 tablet by mouth daily for mood and headache 07/10 SERTRALINE HCL 90140253714 No Longer Active Alli Frye MD Active AMITRIPTYLINE HCL 50 MG ORAL TABLET 1 po qhs for migraine AMITRIPTYLINE HCL 91134929723 No Longer Active Alli Frye MD Active LEVOTHYROXINE SODIUM 112 MCG ORAL TABLET 1 pill by mouth daily for thyroid LEVOTHYROXINE SODIUM 06844298990 Active Alli Frye MD Active AMITRIPTYLINE HCL 50 MG ORAL TABLET 1 pill by mouth nightly, for migraine prevention AMITRIPTYLINE HCL 96643578552 No Longer Active Alli Frye MD Active MAGNESIUM OXIDE 400 MG ORAL CAPSULE 1 po with migraine MAGNESIUM OXIDE 93718782888 No Longer Active Alli Frye MD Active AMITRIPTYLINE HCL 75 MG ORAL TABLET take 1 tab po qhs for migraines. AMITRIPTYLINE HCL 58636625958 No Longer Active Alli Frye MD Active MULTIVITAMIN GUMMIES ADULT ORAL TABLET CHEWABLE MULTIPLE VITAMINS-MINERALS 72387321544 Active Alli Frye MD Active TRANSDERM-SCOP (1.5 MG) 1 MG/3DAYS TRANSDERMAL PATCH 72 HOUR 1 patch every 3 days, as needed for motion sickness, start at least 4 hours hours prior to departure SCOPOLAMINE BASE 58474747866 No Longer Active Alli Frye MD Active LEVOTHYROXINE SODIUM 125 MCG ORAL TABLET 1 pill by mouth daily, for thyroid LEVOTHYROXINE SODIUM 22664905481 No Longer Active Alli Frye MD Active ZOFRAN ODT 4 MG ORAL TABLET DISINTEGRATING 1 pill dissolved by mouth every 4 hours if needed for nausea ONDANSETRON 74258282383 Active Tamera Mustafa MD PhD Active SUMATRIPTAN 20 MG/ACT NASAL SOLUTION 1 spray in one nostril at onset of migraine; may repeat in 2 hours if needed for continued migraine SUMATRIPTAN 12161033504 No Longer Active Tamera Mustafa MD PhD Active ZOFRAN ODT 4 MG ORAL TABLET DISINTEGRATING 1 po q6hr PRN Nausea ONDANSETRON 58000722085 No Longer Active Jr Morrow MD Active EXCEDRIN MIGRAINE 250-250-65 MG ORAL TABLET 1 tab po as needed [id number] 04517050511 Active Jr Morrow MD Active ZOMIG 5 MG ORAL TABLET Take 1 tablet by mouth daily as needed ZOLMITRIPTAN 69214184321 No Longer Active Jr Morrow MD Active BACTRIM DS 800-160 MG ORAL TABLET 1 tab by mouth twice daily 2013 TRIMETHOPRIM-SULFAMETHOXAZOLE 93058344950 No Longer Active Tamera Mustafa MD PhD Active ZITHROMAX Z-ADALGISA 250 MG ORAL TABLET 2 today, then 1 daily for 4 days AZITHROMYCIN 62036416552 No Longer Active Tor Gramajo MD Active MINOCYCLINE HCL 50 MG ORAL CAPSULE 1 pill by mouth daily for acne MINOCYCLINE HCL 11249629628 No Longer Active Tor Gramajo MD Active AXERT 12.5 MG ORAL TABLET 1 tablet by mouth at onset of migraine; may repeat x 1 if headache is still present in 2 hours ALMOTRIPTAN MALATE 35297740855 No Longer Active Tamera Mustafa MD PhD Active ELIMITE 5 % EXTERNAL CREAM Apply from head to toe including scalp and soles of feet. Wash off after 8 hours. PERMETHRIN 84343018096 No Longer Active Tamera Mustafa MD PhD Active AMOXICILLIN 500 MG ORAL TABLET 2 PO bid x 10 days AMOXICILLIN 14037518230 No Longer Active Tamera Mustafa MD PhD Active MAXALT 5 MG ORAL TABLET 1 pill by mouth at start of migraine; may repeat x 1 if no improvement in 2 hours RIZATRIPTAN BENZOATE 68599250423 No Longer Active Tamera Mustafa MD PhD Active BACTRIM DS 800-160 MG ORAL TABLET 1 tab by mouth twice daily 2012 TRIMETHOPRIM-SULFAMETHOXAZOLE 22129781981 No Longer Active Alli Frye MD Active TRI-SPRINTEC 0.18/0.215/0.25 MG-35 MCG ORAL TABLET 1 po qd as directed 06/28 NORGESTIM-ETH ESTRAD TRIPHASIC 95226358565 Active Alli Frye MD Active AXERT 6.25 MG ORAL TABLET 1 pill by mouth at start of migraine; may repeat x 1 in 1 hr if needed ALMOTRIPTAN MALATE 33754050038 No Longer Active Tamera Mustafa MD PhD Active GENERESS FE 0.8-25 MG-MCG ORAL TABLET CHEWABLE 1 daily NORETHIN-ETH ESTRADIOL-FE 40235771211 No Longer Active Tamera Mustafa MD PhD Active DOXYCYCLINE HYCLATE 50 MG ORAL CAPSULE 1 pill by mouth daily for acne DOXYCYCLINE HYCLATE 84435149612 No Longer Active Tamera Mustafa MD PhD Active AMOXICILLIN 875 MG ORAL TABLET 1 TWO TIMES A DAY AMOXICILLIN 63578209562 No Longer Active Sera Mcdowell MD Active AMOXICILLIN 875 MG ORAL TABLET 1 TWO TIMES A DAY AMOXICILLIN 875 MG ORAL TABLET 799543 AMOXICILLIN Inactive DOXYCYCLINE HYCLATE 50 MG ORAL CAPSULE 1 pill by mouth daily for acne DOXYCYCLINE HYCLATE 50 MG ORAL CAPSULE 9327317 DOXYCYCLINE HYCLATE Inactive GENERESS FE 0.8-25 MG-MCG ORAL TABLET CHEWABLE 1 daily GENERESS FE 0.8-25 MG-MCG ORAL TABLET CHEWABLE 7315771 NORETHIN-ETH ESTRADIOL-FE Inactive AXERT 6.25 MG ORAL TABLET 1 pill by mouth at start of migraine; may repeat x 1 in 1 hr if needed AXERT 6.25 MG ORAL TABLET 685777 ALMOTRIPTAN MALATE Inactive MAXALT 5 MG ORAL TABLET 1 pill by mouth at start of migraine; may repeat x 1 if no improvement in 2 hours MAXALT 5 MG ORAL TABLET 718446 RIZATRIPTAN BENZOATE Inactive AMOXICILLIN 500 MG ORAL TABLET 2 PO bid x 10 days AMOXICILLIN 500 MG ORAL TABLET 796899 AMOXICILLIN Inactive ELIMITE 5 % EXTERNAL CREAM Apply from head to toe including scalp and soles of feet. Wash off after 8 hours. ELIMITE 5 % EXTERNAL CREAM 210227 PERMETHRIN Inactive AXERT 12.5 MG ORAL TABLET 1 tablet by mouth at onset of migraine; may repeat x 1 if headache is still present in 2 hours AXERT 12.5 MG ORAL TABLET 305260 ALMOTRIPTAN MALATE Inactive MINOCYCLINE HCL 50 MG ORAL CAPSULE 1 pill by mouth daily for acne MINOCYCLINE HCL 50 MG ORAL CAPSULE 176118 MINOCYCLINE HCL Inactive ZOMIG 5 MG ORAL TABLET Take 1 tablet by mouth daily as needed ZOMIG 5 MG ORAL TABLET 676954 ZOLMITRIPTAN Inactive ZOFRAN ODT 4 MG ORAL TABLET DISINTEGRATING 1 po q6hr PRN Nausea ZOFRAN ODT 4 MG ORAL TABLET DISINTEGRATING 390010 ONDANSETRON Inactive SUMATRIPTAN 20 MG/ACT NASAL SOLUTION 1 spray in one nostril at onset of migraine; may repeat in 2 hours if needed for continued migraine SUMATRIPTAN 20 MG/ACT NASAL SOLUTION 508771 SUMATRIPTAN Inactive LEVOTHYROXINE SODIUM 125 MCG ORAL TABLET 1 pill by mouth daily, for thyroid LEVOTHYROXINE SODIUM 125 MCG ORAL TABLET 862598 LEVOTHYROXINE SODIUM Inactive TRANSDERM-SCOP (1.5 MG) 1 MG/3DAYS TRANSDERMAL PATCH 72 HOUR 1 patch every 3 days, as needed for motion sickness, start at least 4 hours hours prior to departure TRANSDERM-SCOP (1.5 MG) 1 MG/3DAYS TRANSDERMAL PATCH 72 HOUR SCOPOLAMINE BASE Inactive AMITRIPTYLINE HCL 75 MG ORAL TABLET take 1 tab po qhs for migraines. AMITRIPTYLINE HCL 75 MG ORAL TABLET 900149 AMITRIPTYLINE HCL Inactive MAGNESIUM OXIDE 400 MG ORAL CAPSULE 1 po with migraine MAGNESIUM OXIDE 400 MG ORAL CAPSULE 178717 MAGNESIUM OXIDE Inactive AMITRIPTYLINE HCL 50 MG ORAL TABLET 1 pill by mouth nightly, for migraine prevention AMITRIPTYLINE HCL 50 MG ORAL TABLET 811859 AMITRIPTYLINE HCL Inactive AMITRIPTYLINE HCL 50 MG ORAL TABLET 1 po qhs for migraine AMITRIPTYLINE HCL 50 MG ORAL TABLET 999528 AMITRIPTYLINE HCL Inactive ZOLOFT 50 MG ORAL TABLET 1 tablet by mouth daily for mood and headache 07/10 ZOLOFT 50 MG ORAL TABLET 838573 SERTRALINE HCL Inactive AMITRIPTYLINE HCL 25 MG ORAL TABLET 1 tab by mouth daily at bedtime AMITRIPTYLINE HCL 25 MG ORAL TABLET 114472 AMITRIPTYLINE HCL Inactive LORAZEPAM 0.5 MG ORAL TABLET take 1 tab po qday prn anxiety attacks LORAZEPAM 0.5 MG ORAL TABLET 748474 LORAZEPAM Inactive ALPRAZOLAM 0.5 MG ORAL TABLET take 1 tab po qday prn anxiety 2016 ALPRAZOLAM 0.5 MG ORAL TABLET 526854 ALPRAZOLAM Inactive BUSPIRONE HCL 10 MG ORAL TABLET 1 TAB PO PRN BUSPIRONE HCL 10 MG ORAL TABLET 784701 BUSPIRONE HCL Inactive HYDROXYZINE HCL 50 MG ORAL TABLET 1 tab po BID as needed for anxiety HYDROXYZINE HCL 50 MG ORAL TABLET 050655 HYDROXYZINE HCL Inactive BACTRIM DS 800-160 MG ORAL TABLET 1 tab by mouth twice daily 2012 BACTRIM DS 800-160 MG ORAL TABLET 703549 TRIMETHOPRIM- SULFAMETHOXAZOLE Inactive ZITHROMAX Z-ADALGISA 250 MG ORAL TABLET 2 today, then 1 daily for 4 days ZITHROMAX Z-ADALGISA 250 MG ORAL TABLET 379961 AZITHROMYCIN Inactive BACTRIM DS 800-160 MG ORAL TABLET 1 tab by mouth twice daily 2013 BACTRIM DS 800-160 MG ORAL TABLET 043717 TRIMETHOPRIM- SULFAMETHOXAZOLE Inactive Advance Directives Directive Description Start Date CONSENT: MEDICATION HISTORY CONSENT FOR MINOR CARE Immunizations Vaccine Administration Date Value Standard Description Adacel (Tetanus, reduced Diphtheria, and acellular Pertussis Immunization) Adacel [[id number]] tetanus toxoid, reduced diphtheria toxoid, and acellular [...] 0.78-1.34 Encounters Code Encounter Date Provider Facility CPT-14994 Level 4 Est. 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 Patient 23:05:57 CDT Alli Frye MD [facility] CPT-70294 Level 4 Est. Patient 12:25:34 CDT Alli Frye MD [facility] CPT-56771 Level 4 Est. Patient 13:40:53 CDT Alli Frye MD [facility] CPT-51261 Level 4 Est. 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 Patient 11:32:52 RECORDER HELPER [employer]RAV[employer] PROSPECTING Alli Frye MD [facility] CPT-61352 Level 4 Est. Patient 14:47:16 CDT Alli Frye MD [facility] CPT-23012 Level 3 Est. Patient 17:25:12 CDT Tamera Mustafa MD PhD [facility] CPT-66203 Level 3 Est. Patient 15:47:52 CDT Jr Morrow MD [facility] CPT-58125 Level 3 Est. 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 Patient 11:34:16 CDT Gerson EMANUEL [facility] CPT-23390 Level 3 Est. Patient 16:33:58 CDT Edyta Otto APRN [facility] CPT-61139 Level 3 Est. 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 Patient 16:32:34 RECORDER HELPER [employer] PROSPECTING Sera Mcdowell MD [facility] Procedures Code Procedure Name Date Entry Date Standard Description CPT-06320 First Vx - Ix admin via ID IM or jet injects without counseling by physician 15:09:59 CDT CPT-76145 Menveo Intramuscular Solution Reconstituted 15:09:59 CDT CPT-87849 Meningococcal Conjugate Vacine (Menactra) 12:25:34 CDT CPT-73443 Abd compl w upright 16:06:21 CDT CPT-PV Prev. Care Visit 12:33:36 RECORDER HELPER [employer] PROSPECTING
--- OUTSIDE RECORDS SUMMARY | 2018-01-18 03:25 | XMS REPORT | Clinical Summary ---
Author Author Admin, WILBERT [facility] Address Unknown Phone Unavailable Allergies, Adverse [...] Mustafa MD PhD Tonsillitis, acute ICD-463 Inactive aTmera Mustafa MD PhD UTI ICD-599.0 Inactive Tamera Mustafa MD PhD Medication List Medication Instructions Start Date Stop Date Generic Name ND Status Provider Patient Instruction AMITRIPTYLINE HCL 50 MG ORAL TABS 1 pill by mouth nightly, for migraine prevention AMITRIPTYLINE HCL 64333851926 Active Tamera Mustafa MD PhD Active TRANSDERM-SCOP 1.5 MG TRANS PT72 1 patch every 3 days, as needed for motion sickness, start at least 4 hours hours prior to departure SCOPOLAMINE BASE 52751080792 Active Tamera Mustafa MD PhD Active ZOFRAN ODT 4 MG TBDP 1 pill dissolved by mouth every 4 hours if needed for nausea ONDANSETRON 55448572041 Active Tamera Mustafa MD PhD Active LEVOTHYROXINE SODIUM 100 MCG ORAL TABS 1 tab by mouth daily LEVOTHYROXINE SODIUM 84806137657 Active Tamera Mustafa MD PhD Active SUMATRIPTAN 20 MG/ACT SOLN 1 spray in one nostril at onset of migraine; may repeat in 2 hours if needed for continued migraine SUMATRIPTAN 37282943886 No Longer Active Tamera Mustafa MD PhD Active ZOFRAN ODT 4 MG TBDP 1 po q6hr PRN Nausea ONDANSETRON 54681596694 No Longer Active Jr Morrow MD Active EXCEDRIN MIGRAINE 250-250-65 MG TABS 1 tab po as needed [id number] 36195409056 Active Jr Morrow MD Active ZOMIG 5 MG TABS Take 1 tablet by mouth daily as needed ZOLMITRIPTAN 60265265848 No Longer Active Jr Morrow MD Active BACTRIM DS 800-160 MG TAB 1 tab by mouth twice daily TRIMETHOPRIM-SULFAMETHOXAZOLE 78847246911 No Longer Active Tamera Mustafa MD PhD Active ZITHROMAX Z-ADALGISA 250 MG TABS 2 today, then 1 daily for 4 days 2013 AZITHROMYCIN 15688510482 No Longer Active Tor Gramajo MD Active MINOCYCLINE HCL 50 MG CAP 1 pill by mouth daily for acne MINOCYCLINE HCL 03156156777 No Longer Active Tor Gramajo MD Active AXERT 12.5 MG TABS 1 tablet by mouth at onset of migraine; may repeat x 1 if headache is still present in 2 hours ALMOTRIPTAN MALATE 49857876450 No Longer Active Tamera Mustafa MD PhD Active ELIMITE 5 % CREA Apply from head to toe including scalp and soles of feet. Wash off after 8 hours. PERMETHRIN 84199227585 No Longer Active Tamera Mustafa MD PhD Active AMOXICILLIN 500 MG TABS 2 PO bid x 10 days AMOXICILLIN 99186119913 No Longer Active Tamera Mustafa MD PhD Active MAXALT 5 MG TABS 1 pill by mouth at start of migraine; may repeat x 1 if no improvement in 2 hours RIZATRIPTAN BENZOATE 52500956868 No Longer Active Tamera Mustafa MD PhD Active BACTRIM DS 800-160 MG TAB 1 tab by mouth twice daily TRIMETHOPRIM-SULFAMETHOXAZOLE 35392610826 No Longer Active Alli Frye MD Active TRI-SPRINTEC 0.18/0.215/0.25 MG-35 MCG TABS 1 po qd as directed NORGESTIM-ETH ESTRAD TRIPHASIC 37050373301 Active Gerson EMANUEL Active AXERT 6.25 MG TABS 1 pill by mouth at start of migraine; may repeat x 1 in 1 hr if needed ALMOTRIPTAN MALATE 20163330353 No Longer Active Tamera Mustafa MD PhD Active GENERESS FE 0.8-25 MG-MCG CHEW 1 daily NORETHIN-ETH ESTRADIOL-FE 59448830266 No Longer Active Tamera Mustafa MD PhD Active DOXYCYCLINE HYCLATE 50 MG CAP 1 pill by mouth daily for acne 2012 DOXYCYCLINE HYCLATE 27605071154 No Longer Active Tamera Mustafa MD PhD Active AMOXICILLIN 875 MG TABS 1 TWO TIMES A DAY AMOXICILLIN 26706827940 No Longer Active Sera Mcdowell MD Active AMOXICILLIN 875 MG TABS 1 TWO TIMES A DAY AMOXICILLIN 875 MG TABS 409598 AMOXICILLIN Inactive DOXYCYCLINE HYCLATE 50 MG CAP 1 pill by mouth daily for acne 2012 DOXYCYCLINE HYCLATE 50 MG CAP 4664389 DOXYCYCLINE HYCLATE Inactive GENERESS FE 0.8-25 MG-MCG CHEW 1 daily GENERESS FE 0.8-25 MG-MCG CHEW 9538590 NORETHIN-ETH ESTRADIOL-FE Inactive AXERT 6.25 MG TABS 1 pill by mouth at start of migraine; may repeat x 1 in 1 hr if needed AXERT 6.25 MG TABS 942108 ALMOTRIPTAN MALATE Inactive MAXALT 5 MG TABS 1 pill by mouth at start of migraine; may repeat x 1 if no improvement in 2 hours MAXALT 5 MG TABS 728627 RIZATRIPTAN BENZOATE Inactive AMOXICILLIN 500 MG TABS 2 PO bid x 10 days AMOXICILLIN 500 MG TABS 923664 AMOXICILLIN Inactive ELIMITE 5 % CREA Apply from head to toe including scalp and soles of feet. Wash off after 8 hours. ELIMITE 5 % CREA 898119 PERMETHRIN Inactive AXERT 12.5 MG TABS 1 tablet by mouth at onset of migraine; may repeat x 1 if headache is still present in 2 hours AXERT 12.5 MG TABS 196998 ALMOTRIPTAN MALATE Inactive MINOCYCLINE HCL 50 MG CAP 1 pill by mouth daily for acne MINOCYCLINE HCL 50 MG CAP 482171 MINOCYCLINE HCL Inactive ZOMIG 5 MG TABS Take 1 tablet by mouth daily as needed ZOMIG 5 MG TABS 848227 ZOLMITRIPTAN Inactive ZOFRAN ODT 4 MG TBDP 1 po q6hr PRN Nausea ZOFRAN ODT 4 MG TBDP 604695 ONDANSETRON Inactive SUMATRIPTAN 20 MG/ACT SOLN 1 spray in one nostril at onset of migraine; may repeat in 2 hours if needed for continued migraine SUMATRIPTAN 20 MG/ACT SOLN 749446 SUMATRIPTAN Inactive BACTRIM DS 800-160 MG TAB 1 tab by mouth twice daily BACTRIM DS 800-160 MG TAB TRIMETHOPRIM-SULFAMETHOXAZOLE Inactive ZITHROMAX Z-ADALGISA 250 MG TABS 2 today, then 1 daily for 4 days 2013 ZITHROMAX Z-ADALGISA 250 MG TABS 7241575 AZITHROMYCIN Inactive BACTRIM DS 800-160 MG TAB 1 tab by mouth twice daily BACTRIM DS 800-160 MG TAB TRIMETHOPRIM-SULFAMETHOXAZOLE Inactive Advance Directives Directive Description Start Date CONSENT: MEDICATION HISTORY CONSENT FOR MINOR CARE Immunizations Vaccine Administration Date Value Standard Description Adacel (Tetanus, reduced Diphtheria, and acellular Pertussis Immunization) Adacel [[id number]] tetanus toxoid, reduced diphtheria toxoid, and acellular [...] Lab Report: CBC W/DIFF, Comp. Metabolic Panel, [facility] [place] Chemistry sodium, serum 134 mmol/L 557-380 4903/09/10 potassium, serum 4.4 mmol/L 3.5-5.2 chloride, serum [...] Lab Report: CBC W/DIFF, Comp. Metabolic Panel, [facility] [place] - Hematology leukocyte count, blood 18.3 10^3/MM^3 [...] Negative bilirubin, urine Negative Negative urine color [place] Colorless;Lightyellow;Straw;Yellow appearance, urine SlCloudy Clear specific gravity, urine >=1.030 1.000-1.030 pH, urine, semiquantitative 6.0 5.0-8.5 Encounters Code Encounter Date Provider Facility CPT-38361 Level 3 Est. Patient 17:25:12 CDT Tamera Mustafa MD PhD [facility] CPT-76307 Level 3 Est. Patient 15:47:52 CDT Jr Morrow MD [facility] CPT-44631 Level 3 Est. Patient 17:07:09 [employer] Tor Gramajo MD [facility] CPT-51786 Level 3 Est. Patient 11:34:16 CDT Gerson EMANUEL [facility] CPT-28302 Level 3 Est. Patient 16:33:58 CDT Edyta Otto APRN [facility] CPT-25327 Level 3 Est. Patient 15:17:40 [employer] Sera Mcdowell MD [facility] CPT-24018 Level 3 Est. Patient 16:32:34 P[employer]ER Sera Mcdowell MD [facility] Procedures Code Procedure Name Date Entry Date Standard Description CPT-26160 Abd compl w upright 16:06:21 CDT CPT-PV Prev. Care Visit 12:33:36 PIPE [employer] SAWYER
--- OUTSIDE RECORDS SUMMARY | 2018-01-18 03:26 | XMS REPORT | Clinical Summary ---
Author Author Admin, WILBERT Organization [facility] Address Unknown Phone Unavailable Allergies, Adverse Reactions, [...] tab po qhs for migraines. AMITRIPTYLINE HCL 88290703299 Active Alli Frye MD Active MAGNESIUM OXIDE 400 MG CAPS 1 po with migraine MAGNESIUM OXIDE 74026627030 Active Alli Frye MD Active MULTIVITAMIN GUMMIES ADULT CHEW MULTIPLE VITAMINS-MINERALS 62376319613 Active Alli Frye MD Active TRANSDERM-SCOP 1.5 MG TRANS PT72 1 patch every 3 days, as needed for motion sickness, start at least 4 hours hours prior to departure SCOPOLAMINE BASE 35249518020 No Longer Active Alli Frye MD Active LEVOTHYROXINE SODIUM 100 MCG TABS 1 pill by mouth daily for thyroid LEVOTHYROXINE SODIUM 92653720723 Active Alli Frye MD Active LEVOTHYROXINE SODIUM 125 MCG ORAL TABS 1 pill by mouth daily, for thyroid LEVOTHYROXINE SODIUM 65415971602 No Longer Active Alli Frye MD Active AMITRIPTYLINE HCL 50 MG ORAL TABS 1 pill by mouth nightly, for migraine prevention AMITRIPTYLINE HCL 24110149543 Active Tamera Mustafa MD PhD Active ZOFRAN ODT 4 MG TBDP 1 pill dissolved by mouth every 4 hours if needed for nausea ONDANSETRON 82508708639 Active Tamera Mustafa MD PhD Active SUMATRIPTAN 20 MG/ACT SOLN 1 spray in one nostril at onset of migraine; may repeat in 2 hours if needed for continued migraine SUMATRIPTAN 60971928027 No Longer Active Tamera Mustafa MD PhD Active ZOFRAN ODT 4 MG TBDP 1 po q6hr PRN Nausea ONDANSETRON 63591995189 No Longer Active Jr Morrow MD Active EXCEDRIN MIGRAINE 250-250-65 MG TABS 1 tab po as needed [id number] 44280729908 Active Jr Morrow MD Active ZOMIG 5 MG TABS Take 1 tablet by mouth daily as needed ZOLMITRIPTAN 51928477715 No Longer Active Jr Morrow MD Active BACTRIM DS 800-160 MG TAB 1 tab by mouth twice daily TRIMETHOPRIM-SULFAMETHOXAZOLE 58968795767 No Longer Active Tamera Mustafa MD PhD Active ZITHROMAX Z-ADALGISA 250 MG TABS 2 today, then 1 daily for 4 days 2013 AZITHROMYCIN 45322772552 No Longer Active Tor Gramajo MD Active MINOCYCLINE HCL 50 MG CAP 1 pill by mouth daily for acne MINOCYCLINE HCL 70305612546 No Longer Active Tor Gramajo MD Active AXERT 12.5 MG TABS 1 tablet by mouth at onset of migraine; may repeat x 1 if headache is still present in 2 hours ALMOTRIPTAN MALATE 26133101703 No Longer Active Tamera Mustafa MD PhD Active ELIMITE 5 % CREA Apply from head to toe including scalp and soles of feet. Wash off after 8 hours. PERMETHRIN 48458191277 No Longer Active Tamera Mustafa MD PhD Active AMOXICILLIN 500 MG TABS 2 PO bid x 10 days AMOXICILLIN 08109985510 No Longer Active Tamera Mustafa MD PhD Active MAXALT 5 MG TABS 1 pill by mouth at start of migraine; may repeat x 1 if no improvement in 2 hours RIZATRIPTAN BENZOATE 11481050154 No Longer Active Tamera Mustafa MD PhD Active BACTRIM DS 800-160 MG TAB 1 tab by mouth twice daily TRIMETHOPRIM-SULFAMETHOXAZOLE 50628706551 No Longer Active Alil Frye MD Active TRI-SPRINTEC 0.18/0.215/0.25 MG-35 MCG TABS 1 po qd as directed NORGESTIM-ETH ESTRAD TRIPHASIC 64884880770 Active Alli Frye MD Active AXERT 6.25 MG TABS 1 pill by mouth at start of migraine; may repeat x 1 in 1 hr if needed ALMOTRIPTAN MALATE 47734316764 No Longer Active Tamera Mustafa MD PhD Active GENERESS FE 0.8-25 MG-MCG CHEW 1 daily NORETHIN-ETH ESTRADIOL-FE 31169985787 No Longer Active Tamera Mustafa MD PhD Active DOXYCYCLINE HYCLATE 50 MG CAP 1 pill by mouth daily for acne 2012 DOXYCYCLINE HYCLATE 84740646433 No Longer Active Tamera Mustafa MD PhD Active AMOXICILLIN 875 MG TABS 1 TWO TIMES A DAY AMOXICILLIN 43584057754 No Longer Active Sera Mcdowell MD Active AMOXICILLIN 875 MG TABS 1 TWO TIMES A DAY AMOXICILLIN 875 MG TABS 207745 AMOXICILLIN Inactive DOXYCYCLINE HYCLATE 50 MG CAP 1 pill by mouth daily for acne 2012 DOXYCYCLINE HYCLATE 50 MG CAP 7385016 DOXYCYCLINE HYCLATE Inactive GENERESS FE 0.8-25 MG-MCG CHEW 1 daily GENERESS FE 0.8-25 MG-MCG CHEW 9094625 NORETHIN-ETH ESTRADIOL-FE Inactive AXERT 6.25 MG TABS 1 pill by mouth at start of migraine; may repeat x 1 in 1 hr if needed AXERT 6.25 MG TABS 382897 ALMOTRIPTAN MALATE Inactive MAXALT 5 MG TABS 1 pill by mouth at start of migraine; may repeat x 1 if no improvement in 2 hours MAXALT 5 MG TABS 751229 RIZATRIPTAN BENZOATE Inactive AMOXICILLIN 500 MG TABS 2 PO bid x 10 days AMOXICILLIN 500 MG TABS 975847 AMOXICILLIN Inactive ELIMITE 5 % CREA Apply from head to toe including scalp and soles of feet. Wash off after 8 hours. ELIMITE 5 % CREA 089453 PERMETHRIN Inactive AXERT 12.5 MG TABS 1 tablet by mouth at onset of migraine; may repeat x 1 if headache is still present in 2 hours AXERT 12.5 MG TABS 202122 ALMOTRIPTAN MALATE Inactive MINOCYCLINE HCL 50 MG CAP 1 pill by mouth daily for acne MINOCYCLINE HCL 50 MG CAP 167247 MINOCYCLINE HCL Inactive ZOMIG 5 MG TABS Take 1 tablet by mouth daily as needed ZOMIG 5 MG TABS 442991 ZOLMITRIPTAN Inactive ZOFRAN ODT 4 MG TBDP 1 po q6hr PRN Nausea ZOFRAN ODT 4 MG TBDP 769082 ONDANSETRON Inactive SUMATRIPTAN 20 MG/ACT SOLN 1 spray in one nostril at onset of migraine; may repeat in 2 hours if needed for continued migraine SUMATRIPTAN 20 MG/ACT SOLN 576645 SUMATRIPTAN Inactive LEVOTHYROXINE SODIUM 125 MCG ORAL TABS 1 pill by mouth daily, for thyroid LEVOTHYROXINE SODIUM 125 MCG ORAL TABS 822134 LEVOTHYROXINE SODIUM Inactive TRANSDERM-SCOP 1.5 MG TRANS PT72 1 patch every 3 days, as needed for motion sickness, start at least 4 hours hours prior to departure TRANSDERM-SCOP 1.5 MG TRANS PT72 SCOPOLAMINE BASE Inactive BACTRIM DS 800-160 MG TAB 1 tab by mouth twice daily BACTRIM DS 800-160 MG TAB 912204 TRIMETHOPRIM-SULFAMETHOXAZOLE Inactive ZITHROMAX Z-ADALGISA 250 MG TABS 2 today, then 1 daily for 4 days 2013 ZITHROMAX Z-ADALGISA 250 MG TABS 9455765 AZITHROMYCIN Inactive BACTRIM DS 800-160 MG TAB 1 tab by mouth twice daily BACTRIM DS 800-160 MG TAB 849260 TRIMETHOPRIM-SULFAMETHOXAZOLE Inactive Advance Directives Directive Description Start Date CONSENT: MEDICATION HISTORY CONSENT FOR MINOR CARE Immunizations Vaccine Administration Date Value Standard Description Adacel (Tetanus, reduced Diphtheria, and acellular Pertussis Immunization) Adacel [AWF274] tetanus toxoid, reduced diphtheria toxoid, and acellular [...] ng/mL Encounters Code Encounter Date Provider Facility CPT-11357 Level 4 Est. Patient 14:47:16 CDT Alli Frye MD [facility] CPT-41492 Level 3 Est. Patient 17:25:12 CDT Tamera Mustafa MD PhD [facility] CPT-89443 Level 3 Est. Patient 15:47:52 CDT Jr Morrow MD [facility] CPT-12742 Level 3 Est. 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 Patient 11:34:16 CDT Gerson EMANUEL [facility] CPT-74245 Level 3 Est. Patient 16:33:58 CDT Edyta Otto APRN [facility] CPT-70328 Level 3 Est. Patient 15:17:40 AIRWORTHINESS SAFETY INSPECTOR Sera Mcdowell MD [facility] CPT-83083 Level 3 Est. Patient 16:32:34 AIRWORTHINESS SAFETY INSPECTOR Sera Mcdowell MD [facility] Procedures Code Procedure Name Date Entry Date Standard Description CPT-48407 Abd compl w upright 16:06:21 CDT CPT-PV Prev. Care Visit 12:33:36 AIRWORTHINESS SAFETY INSPECTOR
--- OUTSIDE RECORDS SUMMARY | 2018-01-18 03:26 | XMS REPORT | Clinical Summary ---
Author Author Admin, WILBERT Organization [employer] Address Unknown Phone Unavailable Allergies, Adverse Reactions, [...] medical examination at a health care facility CARDIAC ARRHYTHMIA, INTERMITTENT ICD-427.9 Inactive Sera Mcdowell [...] 1 tab po qday prn anxiety ALPRAZOLAM 94020912576 Active Alli Frye MD Active LORAZEPAM 0.5 MG TAB take 1 tab po qday prn anxiety attacks 11/04 LORAZEPAM 49489019812 No Longer Active Alli Frye MD Active RANITIDINE HCL 300 MG CAPS 1 tablet by mouth daily prn acid reflux RANITIDINE HCL 93808760279 Active Alli Frye MD Active METOPROLOL TARTRATE 25 MG ORAL TABS take 1 tab po BID METOPROLOL TARTRATE 42499003608 Active Alli Frye MD Active AMITRIPTYLINE HCL 25 MG TAB 1 tab by mouth daily at bedtime 11/04 AMITRIPTYLINE HCL 42508592372 No Longer Active Alli Frye MD Active ZOLOFT 50 MG TAB 1 tablet by mouth daily for mood and headache SERTRALINE HCL 86354351508 No Longer Active Alli Frye MD Active AMITRIPTYLINE HCL 50 MG TAB 1 po qhs for migraine AMITRIPTYLINE HCL 13021398813 No Longer Active Alli Frye MD Active ZOLOFT 100 MG TAB take 1 tab po qday for mood and headaches. SERTRALINE HCL 42618284688 Active Alli Frye MD Active LEVOTHYROXINE SODIUM 112 MCG TABS 1 pill by mouth daily for thyroid LEVOTHYROXINE SODIUM 13788485299 Active Alli Frye MD Active AMITRIPTYLINE HCL 50 MG ORAL TABS 1 pill by mouth nightly, for migraine prevention AMITRIPTYLINE HCL 45574399803 No Longer Active Alli Frye MD Active MAGNESIUM OXIDE 400 MG CAPS 1 po with migraine MAGNESIUM OXIDE 99456393645 No Longer Active Alli Frye MD Active AMITRIPTYLINE HCL 75 MG TAB take 1 tab po qhs for migraines. 2016 AMITRIPTYLINE HCL 63371231160 No Longer Active Alli Frye MD Active MULTIVITAMIN GUMMIES ADULT CHEW MULTIPLE VITAMINS-MINERALS 28094884257 Active Alli Frye MD Active TRANSDERM-SCOP 1.5 MG TRANS PT72 1 patch every 3 days, as needed for motion sickness, start at least 4 hours hours prior to departure SCOPOLAMINE BASE 22805414590 No Longer Active Alli Frye MD Active LEVOTHYROXINE SODIUM 125 MCG ORAL TABS 1 pill by mouth daily, for thyroid LEVOTHYROXINE SODIUM 99778856385 No Longer Active Alli Frye MD Active ZOFRAN ODT 4 MG TBDP 1 pill dissolved by mouth every 4 hours if needed for nausea ONDANSETRON 82347051098 Active Tamera Mustafa MD PhD Active SUMATRIPTAN 20 MG/ACT SOLN 1 spray in one nostril at onset of migraine; may repeat in 2 hours if needed for continued migraine SUMATRIPTAN 44245353872 No Longer Active Tamera Mustafa MD PhD Active ZOFRAN ODT 4 MG TBDP 1 po q6hr PRN Nausea ONDANSETRON 67741332916 No Longer Active Jr Morrow MD Active EXCEDRIN MIGRAINE 250-250-65 MG TABS 1 tab po as needed [id number] 14080019480 Active Jr Morrow MD Active ZOMIG 5 MG TABS Take 1 tablet by mouth daily as needed ZOLMITRIPTAN 19131502393 No Longer Active Jr Morrow MD Active BACTRIM DS 800-160 MG TAB 1 tab by mouth twice daily TRIMETHOPRIM-SULFAMETHOXAZOLE 99250501283 No Longer Active Tamera Mustafa MD PhD Active ZITHROMAX Z-ADALGISA 250 MG TABS 2 today, then 1 daily for 4 days 2013 AZITHROMYCIN 07396348110 No Longer Active Tor Gramajo MD Active MINOCYCLINE HCL 50 MG CAP 1 pill by mouth daily for acne MINOCYCLINE HCL 85116030771 No Longer Active Tor Gramajo MD Active AXERT 12.5 MG TABS 1 tablet by mouth at onset of migraine; may repeat x 1 if headache is still present in 2 hours ALMOTRIPTAN MALATE 74261907126 No Longer Active Tamera Mustafa MD PhD Active ELIMITE 5 % CREA Apply from head to toe including scalp and soles of feet. Wash off after 8 hours. PERMETHRIN 99049636752 No Longer Active Tamera Mustafa MD PhD Active AMOXICILLIN 500 MG TABS 2 PO bid x 10 days AMOXICILLIN 45331717887 No Longer Active Tamera Mustafa MD PhD Active MAXALT 5 MG TABS 1 pill by mouth at start of migraine; may repeat x 1 if no improvement in 2 hours RIZATRIPTAN BENZOATE 17767095118 No Longer Active Tamera Mustafa MD PhD Active BACTRIM DS 800-160 MG TAB 1 tab by mouth twice daily TRIMETHOPRIM-SULFAMETHOXAZOLE 10447069714 No Longer Active Alli Frye MD Active TRI-SPRINTEC 0.18/0.215/0.25 MG-35 MCG TABS 1 po qd as directed NORGESTIM-ETH ESTRAD TRIPHASIC 99624860124 Active Alli Frye MD Active AXERT 6.25 MG TABS 1 pill by mouth at start of migraine; may repeat x 1 in 1 hr if needed ALMOTRIPTAN MALATE 35007130632 No Longer Active Tamera Mustafa MD PhD Active GENERESS FE 0.8-25 MG-MCG CHEW 1 daily NORETHIN-ETH ESTRADIOL-FE 76470926782 No Longer Active Tamera Mustafa MD PhD Active DOXYCYCLINE HYCLATE 50 MG CAP 1 pill by mouth daily for acne 2012 DOXYCYCLINE HYCLATE 05952453491 No Longer Active Tamera Mustafa MD PhD Active AMOXICILLIN 875 MG TABS 1 TWO TIMES A DAY AMOXICILLIN 70972834127 No Longer Active Sera Mcdowell MD Active AMOXICILLIN 875 MG TABS 1 TWO TIMES A DAY AMOXICILLIN 875 MG TABS 926683 AMOXICILLIN Inactive DOXYCYCLINE HYCLATE 50 MG CAP 1 pill by mouth daily for acne 2012 DOXYCYCLINE HYCLATE 50 MG CAP 5023926 DOXYCYCLINE HYCLATE Inactive GENERESS FE 0.8-25 MG-MCG CHEW 1 daily GENERESS FE 0.8-25 MG-MCG CHEW 5960475 NORETHIN-ETH ESTRADIOL-FE Inactive AXERT 6.25 MG TABS 1 pill by mouth at start of migraine; may repeat x 1 in 1 hr if needed AXERT 6.25 MG TABS 549884 ALMOTRIPTAN MALATE Inactive MAXALT 5 MG TABS 1 pill by mouth at start of migraine; may repeat x 1 if no improvement in 2 hours MAXALT 5 MG TABS 748392 RIZATRIPTAN BENZOATE Inactive AMOXICILLIN 500 MG TABS 2 PO bid x 10 days AMOXICILLIN 500 MG TABS 089431 AMOXICILLIN Inactive ELIMITE 5 % CREA Apply from head to toe including scalp and soles of feet. Wash off after 8 hours. ELIMITE 5 % CREA 991368 PERMETHRIN Inactive AXERT 12.5 MG TABS 1 tablet by mouth at onset of migraine; may repeat x 1 if headache is still present in 2 hours AXERT 12.5 MG TABS 457507 ALMOTRIPTAN MALATE Inactive MINOCYCLINE HCL 50 MG CAP 1 pill by mouth daily for acne MINOCYCLINE HCL 50 MG CAP 322793 MINOCYCLINE HCL Inactive ZOMIG 5 MG TABS Take 1 tablet by mouth daily as needed ZOMIG 5 MG TABS 643964 ZOLMITRIPTAN Inactive ZOFRAN ODT 4 MG TBDP 1 po q6hr PRN Nausea ZOFRAN ODT 4 MG TBDP 588996 ONDANSETRON Inactive SUMATRIPTAN 20 MG/ACT SOLN 1 spray in one nostril at onset of migraine; may repeat in 2 hours if needed for continued migraine SUMATRIPTAN 20 MG/ACT SOLN 654993 SUMATRIPTAN Inactive LEVOTHYROXINE SODIUM 125 MCG ORAL TABS 1 pill by mouth daily, for thyroid LEVOTHYROXINE SODIUM 125 MCG ORAL TABS 200010 LEVOTHYROXINE SODIUM Inactive TRANSDERM-SCOP 1.5 MG TRANS PT72 1 patch every 3 days, as needed for motion sickness, start at least 4 hours hours prior to departure TRANSDERM-SCOP 1.5 MG TRANS PT72 SCOPOLAMINE BASE Inactive AMITRIPTYLINE HCL 75 MG TAB take 1 tab po qhs for migraines. 2016 AMITRIPTYLINE HCL 75 MG TAB 689930 AMITRIPTYLINE HCL Inactive MAGNESIUM OXIDE 400 MG CAPS 1 po with migraine MAGNESIUM OXIDE 400 MG CAPS 824093 MAGNESIUM OXIDE Inactive AMITRIPTYLINE HCL 50 MG ORAL TABS 1 pill by mouth nightly, for migraine prevention AMITRIPTYLINE HCL 50 MG ORAL TABS 746210 AMITRIPTYLINE HCL Inactive AMITRIPTYLINE HCL 50 MG TAB 1 po qhs for migraine AMITRIPTYLINE HCL 50 MG TAB 871834 AMITRIPTYLINE HCL Inactive ZOLOFT 50 MG TAB 1 tablet by mouth daily for mood and headache ZOLOFT 50 MG TAB 331149 SERTRALINE HCL Inactive AMITRIPTYLINE HCL 25 MG TAB 1 tab by mouth daily at bedtime 11/04 AMITRIPTYLINE HCL 25 MG TAB 683146 AMITRIPTYLINE HCL Inactive LORAZEPAM 0.5 MG TAB take 1 tab po qday prn anxiety attacks 11/04 LORAZEPAM 0.5 MG TAB 743573 LORAZEPAM Inactive BACTRIM DS 800-160 MG TAB 1 tab by mouth twice daily BACTRIM DS 800-160 MG TAB 807219 TRIMETHOPRIM-SULFAMETHOXAZOLE Inactive ZITHROMAX Z-ADALGISA 250 MG TABS 2 today, then 1 daily for 4 days 2013 ZITHROMAX Z-ADALGISA 250 MG TABS 1138703 AZITHROMYCIN Inactive BACTRIM DS 800-160 MG TAB 1 tab by mouth twice daily BACTRIM DS 800-160 MG TAB 19820713 TRIMETHOPRIM-SULFAMETHOXAZOLE Inactive Advance Directives Directive Description Start Date CONSENT: MEDICATION HISTORY CONSENT FOR MINOR CARE Immunizations Vaccine Administration Date Value Standard Description Adacel (Tetanus, reduced Diphtheria, and acellular Pertussis Immunization) Adacel [[id number]] tetanus toxoid, reduced diphtheria toxoid, and acellular [...] E&M - [id number] 149 [lb_av] Weight Measured Encounters Code Encounter Date Provider Facility CPT-02509 Level 4 Est. Patient 12:25:34 CDT Alli Frye MD [facility] CPT-11422 Level 4 Est. Patient 13:40:53 CDT Alli Frye MD [facility] CPT-69669 Level 4 Est. Patient 13:18:45 UNIT TECHNICIAN Alli Frye MD [facility] CPT-44561 Level 4 Est. Patient 11:32:52 UNIT TECHNICIAN Alli Frye MD [facility] CPT-44628 Level 4 Est. Patient 14:47:16 CDT Alli Frye MD [facility] CPT-20353 Level 3 Est. Patient 17:25:12 CDT Tamera Mustafa MD PhD [facility] CPT-86155 Level 3 Est. Patient 15:47:52 CDT Jr Morrow MD [facility] CPT-99406 Level 3 Est. Patient 17:07:09 UNIT TECHNICIAN Tor Gramajo MD [facility] CPT-94098 Level 3 Est. Patient 11:34:16 CDT Gerson EMANUEL [facility] CPT-61719 Level 3 Est. Patient 16:33:58 CDT Edyta Otto APRN [facility] CPT-41574 Level 3 Est. Patient 15:17:40 UNIT TECHNICIAN Sera Mcdowell MD [facility] CPT-45610 Level 3 Est. Patient 16:32:34 UNIT TECHNICIAN Sera Mcdowell MD [facility] Procedures Code Procedure Name Date Entry Date Standard Description CPT-91694 First Vx - Ix admin via ID IM or jet injects without counseling by physician 15:09:59 CDT CPT-00997 Menveo Intramuscular Solution Reconstituted 15:09:59 CDT CPT-62940 Meningococcal Conjugate Vacine (Menactra) 12:25:34 CDT CPT-01474 Abd compl w upright 16:06:21 CDT CPT-PV Prev. Care Visit 12:33:36 UNIT TECHNICIAN
--- OUTSIDE RECORDS SUMMARY | 2018-01-18 03:27 | XMS REPORT | Clinical Summary ---
Author Author Admin, WILBERT Organization [employer] Address Unknown Phone Unavailable Allergies, Adverse Reactions, [...] MD PhD Unspecified hypothyroidism SCABIES 133.0 Resolved Tro Gramajo MD Scabies PHARYNGITIS 462 Resolved Tamera [...] 1 tab po qday prn anxiety ALPRAZOLAM 44077440548 Active Alli Frye MD Active LORAZEPAM 0.5 MG TAB take 1 tab po qday prn anxiety attacks 11/04 LORAZEPAM 73066296397 No Longer Active Alli Frye MD Active RANITIDINE HCL 300 MG CAPS 1 tablet by mouth daily prn acid reflux RANITIDINE HCL 70849895129 Active Alli Frye MD Active METOPROLOL TARTRATE 25 MG ORAL TABS take 1 tab po BID METOPROLOL TARTRATE 80862794451 Active Alli Frye MD Active AMITRIPTYLINE HCL 25 MG TAB 1 tab by mouth daily at bedtime 11/04 AMITRIPTYLINE HCL 58836573346 No Longer Active Alli Frye MD Active ZOLOFT 50 MG TAB 1 tablet by mouth daily for mood and headache SERTRALINE HCL 69352970240 No Longer Active Alli Frye MD Active AMITRIPTYLINE HCL 50 MG TAB 1 po qhs for migraine AMITRIPTYLINE HCL 63160544362 No Longer Active Alli Frye MD Active ZOLOFT 100 MG TAB take 1 tab po qday for mood and headaches. SERTRALINE HCL 05396524375 Active Alli Frye MD Active LEVOTHYROXINE SODIUM 112 MCG TABS 1 pill by mouth daily for thyroid LEVOTHYROXINE SODIUM 63293422515 Active Alli Frye MD Active AMITRIPTYLINE HCL 50 MG ORAL TABS 1 pill by mouth nightly, for migraine prevention AMITRIPTYLINE HCL 48477455379 No Longer Active Alli Frye MD Active MAGNESIUM OXIDE 400 MG CAPS 1 po with migraine MAGNESIUM OXIDE 12240589308 No Longer Active Alli Frye MD Active AMITRIPTYLINE HCL 75 MG TAB take 1 tab po qhs for migraines. 2016 AMITRIPTYLINE HCL 83172354590 No Longer Active Alli Frye MD Active MULTIVITAMIN GUMMIES ADULT CHEW MULTIPLE VITAMINS-MINERALS 20927035505 Active Alli Frye MD Active TRANSDERM-SCOP 1.5 MG TRANS PT72 1 patch every 3 days, as needed for motion sickness, start at least 4 hours hours prior to departure SCOPOLAMINE BASE 25908945868 No Longer Active Alli Frye MD Active LEVOTHYROXINE SODIUM 125 MCG ORAL TABS 1 pill by mouth daily, for thyroid LEVOTHYROXINE SODIUM 24093292717 No Longer Active Alli Frye MD Active ZOFRAN ODT 4 MG TBDP 1 pill dissolved by mouth every 4 hours if needed for nausea ONDANSETRON 63009527254 Active Tamera Mustafa MD PhD Active SUMATRIPTAN 20 MG/ACT SOLN 1 spray in one nostril at onset of migraine; may repeat in 2 hours if needed for continued migraine SUMATRIPTAN 95096345128 No Longer Active Tamera Mustafa MD PhD Active ZOFRAN ODT 4 MG TBDP 1 po q6hr PRN Nausea ONDANSETRON 29518763694 No Longer Active Jr Morrow MD Active EXCEDRIN MIGRAINE 250-250-65 MG TABS 1 tab po as needed [id number] 83981897734 Active Jr Morrow MD Active ZOMIG 5 MG TABS Take 1 tablet by mouth daily as needed ZOLMITRIPTAN 17073148133 No Longer Active Jr Morrow MD Active BACTRIM DS 800-160 MG TAB 1 tab by mouth twice daily TRIMETHOPRIM-SULFAMETHOXAZOLE 23224069675 No Longer Active Tamera Mustafa MD PhD Active ZITHROMAX Z-ADALGISA 250 MG TABS 2 today, then 1 daily for 4 days 2013 AZITHROMYCIN 80549724596 No Longer Active Tor Gramajo MD Active MINOCYCLINE HCL 50 MG CAP 1 pill by mouth daily for acne MINOCYCLINE HCL 56348250073 No Longer Active Tor Gramajo MD Active AXERT 12.5 MG TABS 1 tablet by mouth at onset of migraine; may repeat x 1 if headache is still present in 2 hours ALMOTRIPTAN MALATE 18680095409 No Longer Active Tamera Mustafa MD PhD Active ELIMITE 5 % CREA Apply from head to toe including scalp and soles of feet. Wash off after 8 hours. PERMETHRIN 18235139131 No Longer Active Tamera Mustafa MD PhD Active AMOXICILLIN 500 MG TABS 2 PO bid x 10 days AMOXICILLIN 45288228827 No Longer Active Tamera Mustafa MD PhD Active MAXALT 5 MG TABS 1 pill by mouth at start of migraine; may repeat x 1 if no improvement in 2 hours RIZATRIPTAN BENZOATE 56829084420 No Longer Active Tamera Mustafa MD PhD Active BACTRIM DS 800-160 MG TAB 1 tab by mouth twice daily TRIMETHOPRIM-SULFAMETHOXAZOLE 77061699126 No Longer Active Alli Frye MD Active TRI-SPRINTEC 0.18/0.215/0.25 MG-35 MCG TABS 1 po qd as directed NORGESTIM-ETH ESTRAD TRIPHASIC 21439076725 Active Alli Frye MD Active AXERT 6.25 MG TABS 1 pill by mouth at start of migraine; may repeat x 1 in 1 hr if needed ALMOTRIPTAN MALATE 57016601947 No Longer Active Tamera Mustafa MD PhD Active GENERESS FE 0.8-25 MG-MCG CHEW 1 daily NORETHIN-ETH ESTRADIOL-FE 92458175519 No Longer Active Tamera Mustafa MD PhD Active DOXYCYCLINE HYCLATE 50 MG CAP 1 pill by mouth daily for acne 2012 DOXYCYCLINE HYCLATE 63127494970 No Longer Active Tamera Mustafa MD PhD Active AMOXICILLIN 875 MG TABS 1 TWO TIMES A DAY AMOXICILLIN 00497491868 No Longer Active Sera Mcdowell MD Active AMOXICILLIN 875 MG TABS 1 TWO TIMES A DAY AMOXICILLIN 875 MG TABS 950828 AMOXICILLIN Inactive DOXYCYCLINE HYCLATE 50 MG CAP 1 pill by mouth daily for acne 2012 DOXYCYCLINE HYCLATE 50 MG CAP 9655707 DOXYCYCLINE HYCLATE Inactive GENERESS FE 0.8-25 MG-MCG CHEW 1 daily GENERESS FE 0.8-25 MG-MCG CHEW 1816140 NORETHIN-ETH ESTRADIOL-FE Inactive AXERT 6.25 MG TABS 1 pill by mouth at start of migraine; may repeat x 1 in 1 hr if needed AXERT 6.25 MG TABS 898103 ALMOTRIPTAN MALATE Inactive MAXALT 5 MG TABS 1 pill by mouth at start of migraine; may repeat x 1 if no improvement in 2 hours MAXALT 5 MG TABS 342861 RIZATRIPTAN BENZOATE Inactive AMOXICILLIN 500 MG TABS 2 PO bid x 10 days AMOXICILLIN 500 MG TABS 291792 AMOXICILLIN Inactive ELIMITE 5 % CREA Apply from head to toe including scalp and soles of feet. Wash off after 8 hours. ELIMITE 5 % CREA 410965 PERMETHRIN Inactive AXERT 12.5 MG TABS 1 tablet by mouth at onset of migraine; may repeat x 1 if headache is still present in 2 hours AXERT 12.5 MG TABS 084254 ALMOTRIPTAN MALATE Inactive MINOCYCLINE HCL 50 MG CAP 1 pill by mouth daily for acne MINOCYCLINE HCL 50 MG CAP 457127 MINOCYCLINE HCL Inactive ZOMIG 5 MG TABS Take 1 tablet by mouth daily as needed ZOMIG 5 MG TABS 990429 ZOLMITRIPTAN Inactive ZOFRAN ODT 4 MG TBDP 1 po q6hr PRN Nausea ZOFRAN ODT 4 MG TBDP 520390 ONDANSETRON Inactive SUMATRIPTAN 20 MG/ACT SOLN 1 spray in one nostril at onset of migraine; may repeat in 2 hours if needed for continued migraine SUMATRIPTAN 20 MG/ACT SOLN 893668 SUMATRIPTAN Inactive LEVOTHYROXINE SODIUM 125 MCG ORAL TABS 1 pill by mouth daily, for thyroid LEVOTHYROXINE SODIUM 125 MCG ORAL TABS 990633 LEVOTHYROXINE SODIUM Inactive TRANSDERM-SCOP 1.5 MG TRANS PT72 1 patch every 3 days, as needed for motion sickness, start at least 4 hours hours prior to departure TRANSDERM-SCOP 1.5 MG TRANS PT72 SCOPOLAMINE BASE Inactive AMITRIPTYLINE HCL 75 MG TAB take 1 tab po qhs for migraines. 2016 AMITRIPTYLINE HCL 75 MG TAB 507460 AMITRIPTYLINE HCL Inactive MAGNESIUM OXIDE 400 MG CAPS 1 po with migraine MAGNESIUM OXIDE 400 MG CAPS 040031 MAGNESIUM OXIDE Inactive AMITRIPTYLINE HCL 50 MG ORAL TABS 1 pill by mouth nightly, for migraine prevention AMITRIPTYLINE HCL 50 MG ORAL TABS 179339 AMITRIPTYLINE HCL Inactive AMITRIPTYLINE HCL 50 MG TAB 1 po qhs for migraine AMITRIPTYLINE HCL 50 MG TAB 040931 AMITRIPTYLINE HCL Inactive ZOLOFT 50 MG TAB 1 tablet by mouth daily for mood and headache ZOLOFT 50 MG TAB 957730 SERTRALINE HCL Inactive AMITRIPTYLINE HCL 25 MG TAB 1 tab by mouth daily at bedtime 11/04 AMITRIPTYLINE HCL 25 MG TAB 521149 AMITRIPTYLINE HCL Inactive LORAZEPAM 0.5 MG TAB take 1 tab po qday prn anxiety attacks 11/04 LORAZEPAM 0.5 MG TAB 009976 LORAZEPAM Inactive BACTRIM DS 800-160 MG TAB 1 tab by mouth twice daily BACTRIM DS 800-160 MG TAB 196697 TRIMETHOPRIM-SULFAMETHOXAZOLE Inactive ZITHROMAX Z-ADALGISA 250 MG TABS 2 today, then 1 daily for 4 days 2013 ZITHROMAX Z-ADALGISA 250 MG TABS 9089938 AZITHROMYCIN Inactive BACTRIM DS 800-160 MG TAB 1 tab by mouth twice daily BACTRIM DS 800-160 MG TAB [id number] TRIMETHOPRIM-SULFAMETHOXAZOLE Inactive Advance Directives Directive Description Start Date CONSENT: MEDICATION HISTORY CONSENT FOR MINOR CARE Immunizations Vaccine Administration Date Value Standard Description Adacel (Tetanus, reduced Diphtheria, and acellular Pertussis Immunization) Adacel [[id number]] tetanus toxoid, reduced diphtheria toxoid, and acellular [...] 0.36-3.74 Encounters Code Encounter Date Provider Facility CPT-50847 Level 4 Est. Patient 23:05:57 CDT Alli Frye MD [facility]-79212 Level 4 Est. Patient 12:25:34 CDT Alli Frye MD [facility]-75469 Level 4 Est. Patient 13:40:53 CDT Alli Frye MD [facility]-37333 Level 4 Est. Patient 13:18:45 DIGITAL COMMUNITY MANAGER Alli Frye MD [facility]-55188 Level 4 Est. Patient 11:32:52 DIGITAL COMMUNITY MANAGER Alli Frye MD [facility]-96445 Level 4 Est. Patient 14:47:16 CDT Alli Frye MD [facility]-18951 Level 3 Est. Patient 17:25:12 CDT Tamera Mustafa MD PhD [facility]-90712 Level 3 Est. Patient 15:47:52 CDT Jr Morrow MD [facility]-16074 Level 3 Est. Patient 17:07:09 DIGITAL COMMUNITY MANAGER Tor Gramajo MD [facility]-26336 Level 3 Est. Patient 11:34:16 CDT Gerson EMANUEL [facility]-46504 Level 3 Est. Patient 16:33:58 CDT Edyta Otto APRN [facility]-10783 Level 3 Est. Patient 15:17:40 DIGITAL COMMUNITY MANAGER Sera Mcdowell MD [facility]-49327 Level 3 Est. Patient 16:32:34 DIGITAL COMMUNITY MANAGER Sera Mcdowell MD [facility] Procedures Code Procedure Name Date Entry Date Standard Description CPT-02527 First Vx - Ix admin via ID IM or jet injects without counseling by physician 15:09:59 CDT CPT-94821 Menveo Intramuscular Solution Reconstituted 15:09:59 CDT CPT-72395 Meningococcal Conjugate Vacine (Menactra) 12:25:34 CDT CPT-91014 Abd compl w upright 16:06:21 CDT CPT-PV Prev. Care Visit 12:33:36 DIGITAL COMMUNITY MANAGER
--- OUTSIDE RECORDS SUMMARY | 2018-01-18 03:28 | XMS REPORT | Clinical Summary ---
Author Author Admin, WILBERT Organization [employer] Address Unknown Phone Unavailable Allergies, Adverse Reactions, [...] 1 tab po qday prn anxiety ALPRAZOLAM 38169840012 Active Alli Frye MD Active LORAZEPAM 0.5 MG TAB take 1 tab po qday prn anxiety attacks 11/04 LORAZEPAM 04488839034 No Longer Active Alli Frye MD Active RANITIDINE HCL 300 MG CAPS 1 tablet by mouth daily prn acid reflux RANITIDINE HCL 77096005329 Active Alli Frye MD Active METOPROLOL TARTRATE 25 MG ORAL TABS take 1 tab po BID METOPROLOL TARTRATE 13514879281 Active Alli Frye MD Active AMITRIPTYLINE HCL 25 MG TAB 1 tab by mouth daily at bedtime 11/04 AMITRIPTYLINE HCL 01296877489 No Longer Active Alli Frye MD Active ZOLOFT 50 MG TAB 1 tablet by mouth daily for mood and headache SERTRALINE HCL 82791935872 No Longer Active Alli Frye MD Active AMITRIPTYLINE HCL 50 MG TAB 1 po qhs for migraine AMITRIPTYLINE HCL 12748012998 No Longer Active Alli Frye MD Active ZOLOFT 100 MG TAB take 1 tab po qday for mood and headaches. SERTRALINE HCL 39300897259 Active Alli Frye MD Active LEVOTHYROXINE SODIUM 112 MCG TABS 1 pill by mouth daily for thyroid LEVOTHYROXINE SODIUM 60749084347 Active Alli Frye MD Active AMITRIPTYLINE HCL 50 MG ORAL TABS 1 pill by mouth nightly, for migraine prevention AMITRIPTYLINE HCL 12814005811 No Longer Active Alli Frye MD Active MAGNESIUM OXIDE 400 MG CAPS 1 po with migraine MAGNESIUM OXIDE 52750071383 No Longer Active Alli Frye MD Active AMITRIPTYLINE HCL 75 MG TAB take 1 tab po qhs for migraines. 2016 AMITRIPTYLINE HCL 13838006092 No Longer Active Alli Frye MD Active MULTIVITAMIN GUMMIES ADULT CHEW MULTIPLE VITAMINS-MINERALS 99351345216 Active Alli Frye MD Active TRANSDERM-SCOP 1.5 MG TRANS PT72 1 patch every 3 days, as needed for motion sickness, start at least 4 hours hours prior to departure SCOPOLAMINE BASE 45008264989 No Longer Active Alli Frye MD Active LEVOTHYROXINE SODIUM 125 MCG ORAL TABS 1 pill by mouth daily, for thyroid LEVOTHYROXINE SODIUM 13218556175 No Longer Active Alli Frye MD Active ZOFRAN ODT 4 MG TBDP 1 pill dissolved by mouth every 4 hours if needed for nausea ONDANSETRON 32262271121 Active Tamera Mustafa MD PhD Active SUMATRIPTAN 20 MG/ACT SOLN 1 spray in one nostril at onset of migraine; may repeat in 2 hours if needed for continued migraine SUMATRIPTAN 61252107941 No Longer Active Tamera Mustafa MD PhD Active ZOFRAN ODT 4 MG TBDP 1 po q6hr PRN Nausea ONDANSETRON 19683664256 No Longer Active Jr Morrow MD Active EXCEDRIN MIGRAINE 250-250-65 MG TABS 1 tab po as needed [id number] 46409539498 Active Jr Morrow MD Active ZOMIG 5 MG TABS Take 1 tablet by mouth daily as needed ZOLMITRIPTAN 83924977232 No Longer Active Jr Morrow MD Active BACTRIM DS 800-160 MG TAB 1 tab by mouth twice daily TRIMETHOPRIM-SULFAMETHOXAZOLE 96153446047 No Longer Active Tamera Mustafa MD PhD Active ZITHROMAX Z-ADALGISA 250 MG TABS 2 today, then 1 daily for 4 days 2013 AZITHROMYCIN 59408031059 No Longer Active Tor Gramajo MD Active MINOCYCLINE HCL 50 MG CAP 1 pill by mouth daily for acne MINOCYCLINE HCL 20353704108 No Longer Active Tor Gramajo MD Active AXERT 12.5 MG TABS 1 tablet by mouth at onset of migraine; may repeat x 1 if headache is still present in 2 hours ALMOTRIPTAN MALATE 88373123878 No Longer Active Tamera Mustafa MD PhD Active ELIMITE 5 % CREA Apply from head to toe including scalp and soles of feet. Wash off after 8 hours. PERMETHRIN 44162339589 No Longer Active Tamera Mustafa MD PhD Active AMOXICILLIN 500 MG TABS 2 PO bid x 10 days AMOXICILLIN 25958285203 No Longer Active Tamera Mustafa MD PhD Active MAXALT 5 MG TABS 1 pill by mouth at start of migraine; may repeat x 1 if no improvement in 2 hours RIZATRIPTAN BENZOATE 13279284699 No Longer Active Tamera Mustafa MD PhD Active BACTRIM DS 800-160 MG TAB 1 tab by mouth twice daily TRIMETHOPRIM-SULFAMETHOXAZOLE 39057253644 No Longer Active Alli Frye MD Active TRI-SPRINTEC 0.18/0.215/0.25 MG-35 MCG TABS 1 po qd as directed NORGESTIM-ETH ESTRAD TRIPHASIC 89391993108 Active Alli Frye MD Active AXERT 6.25 MG TABS 1 pill by mouth at start of migraine; may repeat x 1 in 1 hr if needed ALMOTRIPTAN MALATE 37267387864 No Longer Active Tamera Mustafa MD PhD Active GENERESS FE 0.8-25 MG-MCG CHEW 1 daily NORETHIN-ETH ESTRADIOL-FE 48639976235 No Longer Active Tamera Mustafa MD PhD Active DOXYCYCLINE HYCLATE 50 MG CAP 1 pill by mouth daily for acne 2012 DOXYCYCLINE HYCLATE 23662563891 No Longer Active Tamera Mustafa MD PhD Active AMOXICILLIN 875 MG TABS 1 TWO TIMES A DAY AMOXICILLIN 61321273488 No Longer Active Sera Mcdowell MD Active AMOXICILLIN 875 MG TABS 1 TWO TIMES A DAY AMOXICILLIN 875 MG TABS 054767 AMOXICILLIN Inactive DOXYCYCLINE HYCLATE 50 MG CAP 1 pill by mouth daily for acne 2012 DOXYCYCLINE HYCLATE 50 MG CAP 6684541 DOXYCYCLINE HYCLATE Inactive GENERESS FE 0.8-25 MG-MCG CHEW 1 daily GENERESS FE 0.8-25 MG-MCG CHEW 4876806 NORETHIN-ETH ESTRADIOL-FE Inactive AXERT 6.25 MG TABS 1 pill by mouth at start of migraine; may repeat x 1 in 1 hr if needed AXERT 6.25 MG TABS 299380 ALMOTRIPTAN MALATE Inactive MAXALT 5 MG TABS 1 pill by mouth at start of migraine; may repeat x 1 if no improvement in 2 hours MAXALT 5 MG TABS 737639 RIZATRIPTAN BENZOATE Inactive AMOXICILLIN 500 MG TABS 2 PO bid x 10 days AMOXICILLIN 500 MG TABS 596913 AMOXICILLIN Inactive ELIMITE 5 % CREA Apply from head to toe including scalp and soles of feet. Wash off after 8 hours. ELIMITE 5 % CREA 969160 PERMETHRIN Inactive AXERT 12.5 MG TABS 1 tablet by mouth at onset of migraine; may repeat x 1 if headache is still present in 2 hours AXERT 12.5 MG TABS 981015 ALMOTRIPTAN MALATE Inactive MINOCYCLINE HCL 50 MG CAP 1 pill by mouth daily for acne MINOCYCLINE HCL 50 MG CAP 155130 MINOCYCLINE HCL Inactive ZOMIG 5 MG TABS Take 1 tablet by mouth daily as needed ZOMIG 5 MG TABS 121374 ZOLMITRIPTAN Inactive ZOFRAN ODT 4 MG TBDP 1 po q6hr PRN Nausea ZOFRAN ODT 4 MG TBDP 167496 ONDANSETRON Inactive SUMATRIPTAN 20 MG/ACT SOLN 1 spray in one nostril at onset of migraine; may repeat in 2 hours if needed for continued migraine SUMATRIPTAN 20 MG/ACT SOLN 944140 SUMATRIPTAN Inactive LEVOTHYROXINE SODIUM 125 MCG ORAL TABS 1 pill by mouth daily, for thyroid LEVOTHYROXINE SODIUM 125 MCG ORAL TABS 381702 LEVOTHYROXINE SODIUM Inactive TRANSDERM-SCOP 1.5 MG TRANS PT72 1 patch every 3 days, as needed for motion sickness, start at least 4 hours hours prior to departure TRANSDERM-SCOP 1.5 MG TRANS PT72 SCOPOLAMINE BASE Inactive AMITRIPTYLINE HCL 75 MG TAB take 1 tab po qhs for migraines. 2016 AMITRIPTYLINE HCL 75 MG TAB 106380 AMITRIPTYLINE HCL Inactive MAGNESIUM OXIDE 400 MG CAPS 1 po with migraine MAGNESIUM OXIDE 400 MG CAPS 135400 MAGNESIUM OXIDE Inactive AMITRIPTYLINE HCL 50 MG ORAL TABS 1 pill by mouth nightly, for migraine prevention AMITRIPTYLINE HCL 50 MG ORAL TABS 368263 AMITRIPTYLINE HCL Inactive AMITRIPTYLINE HCL 50 MG TAB 1 po qhs for migraine AMITRIPTYLINE HCL 50 MG TAB 461570 AMITRIPTYLINE HCL Inactive ZOLOFT 50 MG TAB 1 tablet by mouth daily for mood and headache ZOLOFT 50 MG TAB 368128 SERTRALINE HCL Inactive AMITRIPTYLINE HCL 25 MG TAB 1 tab by mouth daily at bedtime 11/04 AMITRIPTYLINE HCL 25 MG TAB 902532 AMITRIPTYLINE HCL Inactive LORAZEPAM 0.5 MG TAB take 1 tab po qday prn anxiety attacks 11/04 LORAZEPAM 0.5 MG TAB 911655 LORAZEPAM Inactive BACTRIM DS 800-160 MG TAB 1 tab by mouth twice daily BACTRIM DS 800-160 MG TAB 492092 TRIMETHOPRIM-SULFAMETHOXAZOLE Inactive ZITHROMAX Z-ADALGISA 250 MG TABS 2 today, then 1 daily for 4 days 2013 ZITHROMAX Z-ADALGISA 250 MG TABS 7402686 AZITHROMYCIN Inactive BACTRIM DS 800-160 MG TAB 1 tab by mouth twice daily BACTRIM DS 800-160 MG TAB 19820713 TRIMETHOPRIM-SULFAMETHOXAZOLE Inactive Advance Directives Directive Description Start Date CONSENT: MEDICATION HISTORY CONSENT FOR MINOR CARE Immunizations Vaccine Administration Date Value Standard Description Adacel (Tetanus, reduced Diphtheria, and acellular Pertussis Immunization) Adacel [[id number]] tetanus toxoid, reduced diphtheria toxoid, and acellular [...] Measured Encounters Code Encounter Date Provider Facility CPT-25377 Level 4 Est. Patient 12:25:34 CDT Alli Frye MD [facility] CPT-24754 Level 4 Est. Patient 13:40:53 CDT Alli Frye MD [facility] CPT-86926 Level 4 Est. Patient 13:18:45 GOPHERMAN Alli Frye MD [facility] CPT-37878 Level 4 Est. Patient 11:32:52 GOPHERMAN Alli Frye MD [facility] CPT-24718 Level 4 Est. Patient 14:47:16 CDT Alli Frye MD [facility] CPT-58491 Level 3 Est. Patient 17:25:12 CDT Tamera Mustafa MD PhD [facility] CPT-58488 Level 3 Est. Patient 15:47:52 CDT Jr Morrow MD [facility] CPT-43619 Level 3 Est. Patient 17:07:09 GOPHERMAN Tor Gramajo MD [facility] CPT-18292 Level 3 Est. Patient 11:34:16 CDT Gerson EMANUEL [facility] CPT-19918 Level 3 Est. Patient 16:33:58 CDT Edyta Otto APRN [facility] CPT-85775 Level 3 Est. Patient 15:17:40 GOPHERMAN Sera Mcdowell MD [facility] CPT-66175 Level 3 Est. Patient 16:32:34 GOPHERMAN Sera Mcdowell MD [facility] Procedures Code Procedure Name Date Entry Date Standard Description CPT-97474 First Vx - Ix admin via ID IM or jet injects without counseling by physician 15:09:59 CDT CPT-28688 Menveo Intramuscular Solution Reconstituted 15:09:59 CDT CPT-37402 Meningococcal Conjugate Vacine (Menactra) 12:25:34 CDT CPT-58135 Abd compl w upright 16:06:21 CDT CPT-PV Prev. Care Visit 12:33:36 GOPHERMAN
--- OUTSIDE RECORDS SUMMARY | 2018-01-18 03:28 | XMS REPORT | Clinical Summary ---
Author Author Admin, WILBERT Organization [facility] Address Unknown Phone Unavailable Allergies, Adverse Reactions, [...] 1 tab po BID prn anxiety ALPRAZOLAM [id number] Active Alli Frye MD Active QUETIAPINE FUMARATE 25 MG ORAL TABLET take 1 tab po qhs for anxiety QUETIAPINE FUMARATE 73097740301 Active Alli Frye MD Active METOPROLOL TARTRATE 25 MG ORAL TABLET take 1 tab po daily METOPROLOL TARTRATE 08036659690 Active Alli Frye MD Active HYDROXYZINE HCL 50 MG ORAL TABLET 1 tab po BID as needed for anxiety HYDROXYZINE HCL 70855205612 No Longer Active Alli Frye MD Active ZOLOFT 100 MG ORAL TABLET take 2 tabs po qday for mood and headaches. SERTRALINE HCL 01468680377 Active Juliane Melendez LPN Active BUSPIRONE HCL 10 MG ORAL TABLET 1 TAB PO PRN BUSPIRONE HCL 46452825406 No Longer Active Juliane Melendez LPN Active ALPRAZOLAM 0.5 MG ORAL TABLET take 1 tab po qday prn anxiety 2016 ALPRAZOLAM 71904508000 No Longer Active Tatyana Lam Active LORAZEPAM 0.5 MG ORAL TABLET take 1 tab po qday prn anxiety attacks LORAZEPAM 02300800985 No Longer Active Alli Frye MD Active RANITIDINE HCL 300 MG ORAL CAPSULE 1 tablet by mouth daily prn acid reflux RANITIDINE HCL 42804258591 Active Alli Frye MD Active AMITRIPTYLINE HCL 25 MG ORAL TABLET 1 tab by mouth daily at bedtime AMITRIPTYLINE HCL 41403989258 No Longer Active Alli Frye MD Active ZOLOFT 50 MG ORAL TABLET 1 tablet by mouth daily for mood and headache 07/10 SERTRALINE HCL 22169068595 No Longer Active Alli Frye MD Active AMITRIPTYLINE HCL 50 MG ORAL TABLET 1 po qhs for migraine AMITRIPTYLINE HCL 95126369231 No Longer Active Alli Frye MD Active LEVOTHYROXINE SODIUM 112 MCG ORAL TABLET 1 pill by mouth daily for thyroid LEVOTHYROXINE SODIUM 57784869579 Active Alli Frye MD Active AMITRIPTYLINE HCL 50 MG ORAL TABLET 1 pill by mouth nightly, for migraine prevention AMITRIPTYLINE HCL 25576180394 No Longer Active Alli Frye MD Active MAGNESIUM OXIDE 400 MG ORAL CAPSULE 1 po with migraine MAGNESIUM OXIDE 99335265383 No Longer Active Alli Frye MD Active AMITRIPTYLINE HCL 75 MG ORAL TABLET take 1 tab po qhs for migraines. AMITRIPTYLINE HCL 07756722367 No Longer Active Alli Frye MD Active MULTIVITAMIN GUMMIES ADULT ORAL TABLET CHEWABLE MULTIPLE VITAMINS-MINERALS 81738596426 Active Alli Frye MD Active TRANSDERM-SCOP (1.5 MG) 1 MG/3DAYS TRANSDERMAL PATCH 72 HOUR 1 patch every 3 days, as needed for motion sickness, start at least 4 hours hours prior to departure SCOPOLAMINE BASE 35251246744 No Longer Active Alli Frye MD Active LEVOTHYROXINE SODIUM 125 MCG ORAL TABLET 1 pill by mouth daily, for thyroid LEVOTHYROXINE SODIUM 68829124186 No Longer Active Alli Frye MD Active ZOFRAN ODT 4 MG ORAL TABLET DISINTEGRATING 1 pill dissolved by mouth every 4 hours if needed for nausea ONDANSETRON 34784755012 Active Tamera Mustafa MD PhD Active SUMATRIPTAN 20 MG/ACT NASAL SOLUTION 1 spray in one nostril at onset of migraine; may repeat in 2 hours if needed for continued migraine SUMATRIPTAN 36446142001 No Longer Active Tamera Mustafa MD PhD Active ZOFRAN ODT 4 MG ORAL TABLET DISINTEGRATING 1 po q6hr PRN Nausea ONDANSETRON 78926495179 No Longer Active Jr Morrow MD Active EXCEDRIN MIGRAINE 250-250-65 MG ORAL TABLET 1 tab po as needed [id number] 18245796341 Active Jr Morrow MD Active ZOMIG 5 MG ORAL TABLET Take 1 tablet by mouth daily as needed ZOLMITRIPTAN 75706191804 No Longer Active Jr Morrow MD Active BACTRIM DS 800-160 MG ORAL TABLET 1 tab by mouth twice daily 2013 TRIMETHOPRIM-SULFAMETHOXAZOLE 87164435283 No Longer Active Tamera Mustafa MD PhD Active ZITHROMAX Z-ADALGISA 250 MG ORAL TABLET 2 today, then 1 daily for 4 days AZITHROMYCIN 68304922043 No Longer Active Tor Gramajo MD Active MINOCYCLINE HCL 50 MG ORAL CAPSULE 1 pill by mouth daily for acne MINOCYCLINE HCL 63498244209 No Longer Active Tor Gramajo MD Active AXERT 12.5 MG ORAL TABLET 1 tablet by mouth at onset of migraine; may repeat x 1 if headache is still present in 2 hours ALMOTRIPTAN MALATE 55326316445 No Longer Active Tamera Mustafa MD PhD Active ELIMITE 5 % EXTERNAL CREAM Apply from head to toe including scalp and soles of feet. Wash off after 8 hours. PERMETHRIN 42809335547 No Longer Active Tamera Mustafa MD PhD Active AMOXICILLIN 500 MG ORAL TABLET 2 PO bid x 10 days AMOXICILLIN 45378453408 No Longer Active Tamera Mustafa MD PhD Active MAXALT 5 MG ORAL TABLET 1 pill by mouth at start of migraine; may repeat x 1 if no improvement in 2 hours RIZATRIPTAN BENZOATE 05491986488 No Longer Active Tamera Mustafa MD PhD Active BACTRIM DS 800-160 MG ORAL TABLET 1 tab by mouth twice daily 2012 TRIMETHOPRIM-SULFAMETHOXAZOLE 29494760447 No Longer Active Alli Frye MD Active TRI-SPRINTEC 0.18/0.215/0.25 MG-35 MCG ORAL TABLET 1 po qd as directed 06/28 NORGESTIM-ETH ESTRAD TRIPHASIC 06986973142 Active Alli Frye MD Active AXERT 6.25 MG ORAL TABLET 1 pill by mouth at start of migraine; may repeat x 1 in 1 hr if needed ALMOTRIPTAN MALATE 09875086325 No Longer Active Tamera Mustafa MD PhD Active GENERESS FE 0.8-25 MG-MCG ORAL TABLET CHEWABLE 1 daily NORETHIN-ETH ESTRADIOL-FE 06137949502 No Longer Active Tamera Mustafa MD PhD Active DOXYCYCLINE HYCLATE 50 MG ORAL CAPSULE 1 pill by mouth daily for acne DOXYCYCLINE HYCLATE 43328634180 No Longer Active Tamera Mustafa MD PhD Active AMOXICILLIN 875 MG ORAL TABLET 1 TWO TIMES A DAY AMOXICILLIN 60658305165 No Longer Active Sera Mcdowell MD Active AMOXICILLIN 875 MG ORAL TABLET 1 TWO TIMES A DAY AMOXICILLIN 875 MG ORAL TABLET 175827 AMOXICILLIN Inactive DOXYCYCLINE HYCLATE 50 MG ORAL CAPSULE 1 pill by mouth daily for acne DOXYCYCLINE HYCLATE 50 MG ORAL CAPSULE 5211238 DOXYCYCLINE HYCLATE Inactive GENERESS FE 0.8-25 MG-MCG ORAL TABLET CHEWABLE 1 daily GENERESS FE 0.8-25 MG-MCG ORAL TABLET CHEWABLE 2753783 NORETHIN-ETH ESTRADIOL-FE Inactive AXERT 6.25 MG ORAL TABLET 1 pill by mouth at start of migraine; may repeat x 1 in 1 hr if needed AXERT 6.25 MG ORAL TABLET ALMOTRIPTAN MALATE Inactive MAXALT 5 MG ORAL TABLET 1 pill by mouth at start of migraine; may repeat x 1 if no improvement in 2 hours MAXALT 5 MG ORAL TABLET 097649 RIZATRIPTAN BENZOATE Inactive AMOXICILLIN 500 MG ORAL TABLET 2 PO bid x 10 days AMOXICILLIN 500 MG ORAL TABLET 747656 AMOXICILLIN Inactive ELIMITE 5 % EXTERNAL CREAM Apply from head to toe including scalp and soles of feet. Wash off after 8 hours. ELIMITE 5 % EXTERNAL CREAM 707621 PERMETHRIN Inactive AXERT 12.5 MG ORAL TABLET 1 tablet by mouth at onset of migraine; may repeat x 1 if headache is still present in 2 hours AXERT 12.5 MG ORAL TABLET 641182 ALMOTRIPTAN MALATE Inactive MINOCYCLINE HCL 50 MG ORAL CAPSULE 1 pill by mouth daily for acne MINOCYCLINE HCL 50 MG ORAL CAPSULE 076498 MINOCYCLINE HCL Inactive ZOMIG 5 MG ORAL TABLET Take 1 tablet by mouth daily as needed ZOMIG 5 MG ORAL TABLET 898951 ZOLMITRIPTAN Inactive ZOFRAN ODT 4 MG ORAL TABLET DISINTEGRATING 1 po q6hr PRN Nausea ZOFRAN ODT 4 MG ORAL TABLET DISINTEGRATING 477228 ONDANSETRON Inactive SUMATRIPTAN 20 MG/ACT NASAL SOLUTION 1 spray in one nostril at onset of migraine; may repeat in 2 hours if needed for continued migraine SUMATRIPTAN 20 MG/ACT NASAL SOLUTION 658800 SUMATRIPTAN Inactive LEVOTHYROXINE SODIUM 125 MCG ORAL TABLET 1 pill by mouth daily, for thyroid LEVOTHYROXINE SODIUM 125 MCG ORAL TABLET 990467 LEVOTHYROXINE SODIUM Inactive TRANSDERM-SCOP (1.5 MG) 1 MG/3DAYS TRANSDERMAL PATCH 72 HOUR 1 patch every 3 days, as needed for motion sickness, start at least 4 hours hours prior to departure TRANSDERM-SCOP (1.5 MG) 1 MG/3DAYS TRANSDERMAL PATCH 72 HOUR SCOPOLAMINE BASE Inactive AMITRIPTYLINE HCL 75 MG ORAL TABLET take 1 tab po qhs for migraines. AMITRIPTYLINE HCL 75 MG ORAL TABLET 147336 AMITRIPTYLINE HCL Inactive MAGNESIUM OXIDE 400 MG ORAL CAPSULE 1 po with migraine MAGNESIUM OXIDE 400 MG ORAL CAPSULE 284384 MAGNESIUM OXIDE Inactive AMITRIPTYLINE HCL 50 MG ORAL TABLET 1 pill by mouth nightly, for migraine prevention AMITRIPTYLINE HCL 50 MG ORAL TABLET 710815 AMITRIPTYLINE HCL Inactive AMITRIPTYLINE HCL 50 MG ORAL TABLET 1 po qhs for migraine AMITRIPTYLINE HCL 50 MG ORAL TABLET 822008 AMITRIPTYLINE HCL Inactive ZOLOFT 50 MG ORAL TABLET 1 tablet by mouth daily for mood and headache 07/10 ZOLOFT 50 MG ORAL TABLET 258610 SERTRALINE HCL Inactive AMITRIPTYLINE HCL 25 MG ORAL TABLET 1 tab by mouth daily at bedtime AMITRIPTYLINE HCL 25 MG ORAL TABLET 276214 AMITRIPTYLINE HCL Inactive LORAZEPAM 0.5 MG ORAL TABLET take 1 tab po qday prn anxiety attacks LORAZEPAM 0.5 MG ORAL TABLET 086219 LORAZEPAM Inactive ALPRAZOLAM 0.5 MG ORAL TABLET take 1 tab po qday prn anxiety 2016 ALPRAZOLAM 0.5 MG ORAL TABLET 240457 ALPRAZOLAM Inactive BUSPIRONE HCL 10 MG ORAL TABLET 1 TAB PO PRN BUSPIRONE HCL 10 MG ORAL TABLET 161085 BUSPIRONE HCL Inactive HYDROXYZINE HCL 50 MG ORAL TABLET 1 tab po BID as needed for anxiety HYDROXYZINE HCL 50 MG ORAL TABLET 328970 HYDROXYZINE HCL Inactive BACTRIM DS 800-160 MG ORAL TABLET 1 tab by mouth twice daily 2012 BACTRIM DS 800-160 MG ORAL TABLET 801880 TRIMETHOPRIM- SULFAMETHOXAZOLE Inactive ZITHROMAX Z-ADALGISA 250 MG ORAL TABLET 2 today, then 1 daily for 4 days ZITHROMAX Z-ADALGISA 250 MG ORAL TABLET 609561 AZITHROMYCIN Inactive BACTRIM DS 800-160 MG ORAL TABLET 1 tab by mouth twice daily 2013 BACTRIM DS 800-160 MG ORAL TABLET 757804 TRIMETHOPRIM- SULFAMETHOXAZOLE Inactive Advance Directives Directive Description Start Date CONSENT: MEDICATION HISTORY CONSENT FOR MINOR CARE Immunizations Vaccine Administration Date Value Standard Description Adacel (Tetanus, reduced Diphtheria, and acellular Pertussis Immunization) Adacel [[id number]] tetanus toxoid, reduced diphtheria toxoid, and acellular [...] Measured Encounters Code Encounter Date Provider Facility CPT-44378 Level 4 Est. 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 Patient 23:05:57 CDT Alli Frye MD [facility] CPT-73467 Level 4 Est. Patient 12:25:34 CDT Alli Frye MD [facility] CPT-37941 Level 4 Est. Patient 13:40:53 CDT Alli Frye MD [facility] CPT-16526 Level 4 Est. Patient 13:18:45 [employer] SUPERVISOR Alli Frye MD [facility] CPT-24856 Level 4 Est. Patient 11:32:52 [employer] SUPERVISOR Alli Frye MD [facility] CPT-11829 Level 4 Est. Patient 14:47:16 CDT Alli Frye MD [facility] CPT-60742 Level 3 Est. Patient 17:25:12 CDT Tamera Mustafa MD [facility] CPT-92498 Level 3 Est. Patient 15:47:52 CDT Jr Morrow MD [facility] CPT-65407 Level 3 Est. Patient 17:07:09 W[employer]AT[employer] SUPERVISOR Tor Gramajo MD [facility] CPT-46714 Level 3 Est. Patient 11:34:16 CDT Gerson EMANUEL [facility] CPT-98839 Level 3 Est. Patient 16:33:58 CDT Edyta Otto APRN [facility] CPT-18497 Level 3 Est. Patient 15:17:40 W[employer] SUPER[employer]OR Sera Mcdowell MD [facility] CPT-28498 Level 3 Est. Patient 16:32:34 [employer] SUPER[employer]OR Sera Mcdowell MD [facility] Procedures Code Procedure Name Date Entry Date Standard Description CPT-62729 First Vx - Ix admin via ID IM or jet injects without counseling by physician 15:09:59 CDT CPT-63736 Menveo Intramuscular Solution Reconstituted 15:09:59 CDT CPT-06441 Meningococcal Conjugate Vacine (Menactra) 12:25:34 CDT CPT-75590 Abd compl w upright 16:06:21 CDT CPT-PV Prev. Care Visit 12:33:36 W[employer] SUPERVISOR
--- OUTSIDE RECORDS SUMMARY | 2018-01-18 03:29 | XMS REPORT | Clinical Summary ---
Author Author Admin, WILBERT Organization [facility] Address Unknown Phone Unavailable Allergies, Adverse [...] 1 tab po BID prn anxiety ALPRAZOLAM 34315634362 Active Alli Frye MD Active QUETIAPINE FUMARATE 25 MG ORAL TABLET take 1 tab po qhs for anxiety QUETIAPINE FUMARATE 97990340702 Active Alli Frye MD Active METOPROLOL TARTRATE 25 MG ORAL TABLET take 1 tab po daily METOPROLOL TARTRATE 30774209778 Active Alli Frye MD Active HYDROXYZINE HCL 50 MG ORAL TABLET 1 tab po BID as needed for anxiety HYDROXYZINE HCL 43808849940 No Longer Active Alli Frye MD Active ZOLOFT 100 MG ORAL TABLET take 2 tabs po qday for mood and headaches. SERTRALINE HCL 74897106685 Active Juliane Melendez LPN Active BUSPIRONE HCL 10 MG ORAL TABLET 1 TAB PO PRN BUSPIRONE HCL 90403283247 No Longer Active Juliane Melendez LPN Active ALPRAZOLAM 0.5 MG ORAL TABLET take 1 tab po qday prn anxiety 2016 ALPRAZOLAM 42116095965 No Longer Active Tatyana Lam Active LORAZEPAM 0.5 MG ORAL TABLET take 1 tab po qday prn anxiety attacks LORAZEPAM 49075830881 No Longer Active Alli Frye MD Active RANITIDINE HCL 300 MG ORAL CAPSULE 1 tablet by mouth daily prn acid reflux RANITIDINE HCL 09638209668 Active Alli Frye MD Active AMITRIPTYLINE HCL 25 MG ORAL TABLET 1 tab by mouth daily at bedtime AMITRIPTYLINE HCL 05638055764 No Longer Active Alli Frye MD Active ZOLOFT 50 MG ORAL TABLET 1 tablet by mouth daily for mood and headache 07/10 SERTRALINE HCL 50064984900 No Longer Active Alli Frye MD Active AMITRIPTYLINE HCL 50 MG ORAL TABLET 1 po qhs for migraine AMITRIPTYLINE HCL 78892075694 No Longer Active Alli Frye MD Active LEVOTHYROXINE SODIUM 112 MCG ORAL TABLET 1 pill by mouth daily for thyroid LEVOTHYROXINE SODIUM 75906474020 Active Alli Frye MD Active AMITRIPTYLINE HCL 50 MG ORAL TABLET 1 pill by mouth nightly, for migraine prevention AMITRIPTYLINE HCL 66458057789 No Longer Active Alli Frye MD Active MAGNESIUM OXIDE 400 MG ORAL CAPSULE 1 po with migraine MAGNESIUM OXIDE 63927806073 No Longer Active Alli Frye MD Active AMITRIPTYLINE HCL 75 MG ORAL TABLET take 1 tab po qhs for migraines. AMITRIPTYLINE HCL 37285758789 No Longer Active Alli Frye MD Active MULTIVITAMIN GUMMIES ADULT ORAL TABLET CHEWABLE MULTIPLE VITAMINS-MINERALS 71435919868 Active Alli Frye MD Active TRANSDERM-SCOP (1.5 MG) 1 MG/3DAYS TRANSDERMAL PATCH 72 HOUR 1 patch every 3 days, as needed for motion sickness, start at least 4 hours hours prior to departure SCOPOLAMINE BASE 18757563262 No Longer Active Alli Frye MD Active LEVOTHYROXINE SODIUM 125 MCG ORAL TABLET 1 pill by mouth daily, for thyroid LEVOTHYROXINE SODIUM 29345060870 No Longer Active Alli Frye MD Active ZOFRAN ODT 4 MG ORAL TABLET DISINTEGRATING 1 pill dissolved by mouth every 4 hours if needed for nausea ONDANSETRON 09647580254 Active Tamera Mustafa MD PhD Active SUMATRIPTAN 20 MG/ACT NASAL SOLUTION 1 spray in one nostril at onset of migraine; may repeat in 2 hours if needed for continued migraine SUMATRIPTAN 01700990566 No Longer Active Tamera Mustafa MD PhD Active ZOFRAN ODT 4 MG ORAL TABLET DISINTEGRATING 1 po q6hr PRN Nausea ONDANSETRON 85146436495 No Longer Active Jr Morrow MD Active EXCEDRIN MIGRAINE 250-250-65 MG ORAL TABLET 1 tab po as needed [id number] 23470572205 Active Jr Morrow MD Active ZOMIG 5 MG ORAL TABLET Take 1 tablet by mouth daily as needed ZOLMITRIPTAN 94701182090 No Longer Active Jr Morrow MD Active BACTRIM DS 800-160 MG ORAL TABLET 1 tab by mouth twice daily 2013 TRIMETHOPRIM-SULFAMETHOXAZOLE 48693617773 No Longer Active Tamera Mustafa MD PhD Active ZITHROMAX Z-ADALGISA 250 MG ORAL TABLET 2 today, then 1 daily for 4 days AZITHROMYCIN 49510055395 No Longer Active Tor Gramajo MD Active MINOCYCLINE HCL 50 MG ORAL CAPSULE 1 pill by mouth daily for acne MINOCYCLINE HCL 66518108223 No Longer Active Tor Gramajo MD Active AXERT 12.5 MG ORAL TABLET 1 tablet by mouth at onset of migraine; may repeat x 1 if headache is still present in 2 hours ALMOTRIPTAN MALATE 24432469256 No Longer Active Tamera Mustafa MD PhD Active ELIMITE 5 % EXTERNAL CREAM Apply from head to toe including scalp and soles of feet. Wash off after 8 hours. PERMETHRIN 75522416763 No Longer Active Tamera Mustafa MD PhD Active AMOXICILLIN 500 MG ORAL TABLET 2 PO bid x 10 days AMOXICILLIN 20830895309 No Longer Active Tamera Mustafa MD PhD Active MAXALT 5 MG ORAL TABLET 1 pill by mouth at start of migraine; may repeat x 1 if no improvement in 2 hours RIZATRIPTAN BENZOATE 15001631565 No Longer Active Tamera Mustafa MD PhD Active BACTRIM DS 800-160 MG ORAL TABLET 1 tab by mouth twice daily 2012 TRIMETHOPRIM-SULFAMETHOXAZOLE 01202184955 No Longer Active Alli Frye MD Active TRI-SPRINTEC 0.18/0.215/0.25 MG-35 MCG ORAL TABLET 1 po qd as directed 06/28 NORGESTIM-ETH ESTRAD TRIPHASIC 24793973674 Active Alli Frye MD Active AXERT 6.25 MG ORAL TABLET 1 pill by mouth at start of migraine; may repeat x 1 in 1 hr if needed ALMOTRIPTAN MALATE 40680982988 No Longer Active Tamera Mustafa MD PhD Active GENERESS FE 0.8-25 MG-MCG ORAL TABLET CHEWABLE 1 daily NORETHIN-ETH ESTRADIOL-FE 40407589825 No Longer Active Tamera Mustafa MD PhD Active DOXYCYCLINE HYCLATE 50 MG ORAL CAPSULE 1 pill by mouth daily for acne DOXYCYCLINE HYCLATE 61879660001 No Longer Active Tamera Mustafa MD PhD Active AMOXICILLIN 875 MG ORAL TABLET 1 TWO TIMES A DAY AMOXICILLIN 84905887725 No Longer Active Sera Mcdowell MD Active AMOXICILLIN 875 MG ORAL TABLET 1 TWO TIMES A DAY AMOXICILLIN 875 MG ORAL TABLET 267059 AMOXICILLIN Inactive DOXYCYCLINE HYCLATE 50 MG ORAL CAPSULE 1 pill by mouth daily for acne DOXYCYCLINE HYCLATE 50 MG ORAL CAPSULE 1153057 DOXYCYCLINE HYCLATE Inactive GENERESS FE 0.8-25 MG-MCG ORAL TABLET CHEWABLE 1 daily GENERESS FE 0.8-25 MG-MCG ORAL TABLET CHEWABLE 8618240 NORETHIN-ETH ESTRADIOL-FE Inactive AXERT 6.25 MG ORAL TABLET 1 pill by mouth at start of migraine; may repeat x 1 in 1 hr if needed AXERT 6.25 MG ORAL TABLET 130927 ALMOTRIPTAN MALATE Inactive MAXALT 5 MG ORAL TABLET 1 pill by mouth at start of migraine; may repeat x 1 if no improvement in 2 hours MAXALT 5 MG ORAL TABLET 977236 RIZATRIPTAN BENZOATE Inactive AMOXICILLIN 500 MG ORAL TABLET 2 PO bid x 10 days AMOXICILLIN 500 MG ORAL TABLET 308379 AMOXICILLIN Inactive ELIMITE 5 % EXTERNAL CREAM Apply from head to toe including scalp and soles of feet. Wash off after 8 hours. ELIMITE 5 % EXTERNAL CREAM 502489 PERMETHRIN Inactive AXERT 12.5 MG ORAL TABLET 1 tablet by mouth at onset of migraine; may repeat x 1 if headache is still present in 2 hours AXERT 12.5 MG ORAL TABLET 916760 ALMOTRIPTAN MALATE Inactive MINOCYCLINE HCL 50 MG ORAL CAPSULE 1 pill by mouth daily for acne MINOCYCLINE HCL 50 MG ORAL CAPSULE 761915 MINOCYCLINE HCL Inactive ZOMIG 5 MG ORAL TABLET Take 1 tablet by mouth daily as needed ZOMIG 5 MG ORAL TABLET 178627 ZOLMITRIPTAN Inactive ZOFRAN ODT 4 MG ORAL TABLET DISINTEGRATING 1 po q6hr PRN Nausea ZOFRAN ODT 4 MG ORAL TABLET DISINTEGRATING 919970 ONDANSETRON Inactive SUMATRIPTAN 20 MG/ACT NASAL SOLUTION 1 spray in one nostril at onset of migraine; may repeat in 2 hours if needed for continued migraine SUMATRIPTAN 20 MG/ACT NASAL SOLUTION 169443 SUMATRIPTAN Inactive LEVOTHYROXINE SODIUM 125 MCG ORAL TABLET 1 pill by mouth daily, for thyroid LEVOTHYROXINE SODIUM 125 MCG ORAL TABLET 670091 LEVOTHYROXINE SODIUM Inactive TRANSDERM-SCOP (1.5 MG) 1 MG/3DAYS TRANSDERMAL PATCH 72 HOUR 1 patch every 3 days, as needed for motion sickness, start at least 4 hours hours prior to departure TRANSDERM-SCOP (1.5 MG) 1 MG/3DAYS TRANSDERMAL PATCH 72 HOUR SCOPOLAMINE BASE Inactive AMITRIPTYLINE HCL 75 MG ORAL TABLET take 1 tab po qhs for migraines. AMITRIPTYLINE HCL 75 MG ORAL TABLET 342018 AMITRIPTYLINE HCL Inactive MAGNESIUM OXIDE 400 MG ORAL CAPSULE 1 po with migraine MAGNESIUM OXIDE 400 MG ORAL CAPSULE 169658 MAGNESIUM OXIDE Inactive AMITRIPTYLINE HCL 50 MG ORAL TABLET 1 pill by mouth nightly, for migraine prevention AMITRIPTYLINE HCL 50 MG ORAL TABLET 343788 AMITRIPTYLINE HCL Inactive AMITRIPTYLINE HCL 50 MG ORAL TABLET 1 po qhs for migraine AMITRIPTYLINE HCL 50 MG ORAL TABLET 514080 AMITRIPTYLINE HCL Inactive ZOLOFT 50 MG ORAL TABLET 1 tablet by mouth daily for mood and headache 07/10 ZOLOFT 50 MG ORAL TABLET 268728 SERTRALINE HCL Inactive AMITRIPTYLINE HCL 25 MG ORAL TABLET 1 tab by mouth daily at bedtime AMITRIPTYLINE HCL 25 MG ORAL TABLET 311151 AMITRIPTYLINE HCL Inactive LORAZEPAM 0.5 MG ORAL TABLET take 1 tab po qday prn anxiety attacks LORAZEPAM 0.5 MG ORAL TABLET 839280 LORAZEPAM Inactive ALPRAZOLAM 0.5 MG ORAL TABLET take 1 tab po qday prn anxiety 2016 ALPRAZOLAM 0.5 MG ORAL TABLET 430915 ALPRAZOLAM Inactive BUSPIRONE HCL 10 MG ORAL TABLET 1 TAB PO PRN BUSPIRONE HCL 10 MG ORAL TABLET 106642 BUSPIRONE HCL Inactive HYDROXYZINE HCL 50 MG ORAL TABLET 1 tab po BID as needed for anxiety HYDROXYZINE HCL 50 MG ORAL TABLET 899570 HYDROXYZINE HCL Inactive BACTRIM DS 800-160 MG ORAL TABLET 1 tab by mouth twice daily 2012 BACTRIM DS 800-160 MG ORAL TABLET 236561 TRIMETHOPRIM- SULFAMETHOXAZOLE Inactive ZITHROMAX Z-ADALGISA 250 MG ORAL TABLET 2 today, then 1 daily for 4 days ZITHROMAX Z-ADALGISA 250 MG ORAL TABLET 330147 AZITHROMYCIN Inactive BACTRIM DS 800-160 MG ORAL TABLET 1 tab by mouth twice daily 2013 BACTRIM DS 800-160 MG ORAL TABLET 019093 TRIMETHOPRIM- SULFAMETHOXAZOLE Inactive Advance Directives Directive Description Start Date CONSENT: MEDICATION HISTORY CONSENT FOR MINOR CARE Immunizations Vaccine Administration Date Value Standard Description Adacel (Tetanus, reduced Diphtheria, and acellular Pertussis Immunization) Adacel [[id number]] tetanus toxoid, reduced diphtheria toxoid, and acellular [...] 0.36-3.74 Encounters Code Encounter Date Provider Facility CPT-37114 Level 4 Est. Patient 15:50:37 REIMBURSEMENT SPEC Alli Frye MD [facility] CPT-99353 Level 4 Est. Patient 23:05:57 CDT Alli Frye MD [facility] CPT-50614 Level 4 Est. Patient 12:25:34 CDT Alli Frye MD [facility] CPT-11783 Level 4 Est. Patient 13:40:53 CDT Alli Frye MD [facility] CPT-86628 Level 4 Est. Patient 13:18:45 REIMBURSEMENT SPEC Alli Frye MD [facility] CPT-66677 Level 4 Est. Patient 11:32:52 REIMBURSEMENT SPEC Alli Frye MD [facility] CPT-12287 Level 4 Est. Patient 14:47:16 CDT Alli Frye MD [facility] CPT-19517 Level 3 Est. Patient 17:25:12 CDT Tamera Mustafa MD PhD [facility] CPT-00808 Level 3 Est. Patient 15:47:52 CDT Jr Morrow MD [facility] CPT-04676 Level 3 Est. Patient 17:07:09 REIMBURSEMENT SPEC Tor Gramajo MD [facility] CPT-52822 Level 3 Est. Patient 11:34:16 CDT Gerson EMANUEL [facility] CPT-03771 Level 3 Est. Patient 16:33:58 CDT Edyta Otto APRN [facility] CPT-92089 Level 3 Est. Patient 15:17:40 REIMBURSEMENT SPEC Sera Mcdowell MD [facility] CPT-10771 Level 3 Est. Patient 16:32:34 REIMBURSEMENT SPEC Sera Mcdowell MD [facility] Procedures Code Procedure Name Date Entry Date Standard Description CPT-04457 First Vx - Ix admin via ID IM or jet injects without counseling by physician 15:09:59 CDT CPT-22304 Menveo Intramuscular Solution Reconstituted 15:09:59 CDT CPT-36473 Meningococcal Conjugate Vacine (Menactra) 12:25:34 CDT CPT-92545 Abd compl w upright 16:06:21 CDT CPT-PV Prev. Care Visit 12:33:36 REIMBURSEMENT SPEC
--- OUTSIDE RECORDS SUMMARY | 2018-01-18 03:29 | XMS REPORT | Clinical Summary ---
Author Author Admin, WILBERT [facility] Address Unknown Phone Unavailable Allergies, Adverse [...] hours hours prior to departure SCOPOLAMINE BASE 45242063933 Active Tamera Mustafa MD PhD Active ZOFRAN ODT 4 MG TBDP 1 pill dissolved by mouth every 4 hours if needed for nausea ONDANSETRON 42385495388 Active Tamera Mustafa MD PhD Active AMITRIPTYLINE HCL 25 MG ORAL TABS 1 pill by mouth nightly, for migraine prevention AMITRIPTYLINE HCL 52153153627 Active Alli Frye MD Active LEVOTHYROXINE SODIUM 100 MCG ORAL TABS 1 tab by mouth daily LEVOTHYROXINE SODIUM 88257305036 Active Tamera Mustafa MD PhD Active SUMATRIPTAN 20 MG/ACT SOLN 1 spray in one nostril at onset of migraine; may repeat in 2 hours if needed for continued migraine SUMATRIPTAN 72643133758 No Longer Active Tamera Mustafa MD PhD Active ZOFRAN ODT 4 MG TBDP 1 po q6hr PRN Nausea ONDANSETRON 42243022427 No Longer Active Jr Morrow MD Active EXCEDRIN MIGRAINE 250-250-65 MG TABS 1 tab po as needed [id number] 39066103106 Active Jr Morrow MD Active ZOMIG 5 MG TABS Take 1 tablet by mouth daily as needed ZOLMITRIPTAN 89600081981 No Longer Active Jr Morrow MD Active BACTRIM DS 800-160 MG TAB 1 tab by mouth twice daily TRIMETHOPRIM-SULFAMETHOXAZOLE 63877662736 No Longer Active Tamera Mustafa MD PhD Active ZITHROMAX Z-ADALGISA 250 MG TABS 2 today, then 1 daily for 4 days 2013 AZITHROMYCIN 20878312039 No Longer Active Tor Gramajo MD Active MINOCYCLINE HCL 50 MG CAP 1 pill by mouth daily for acne MINOCYCLINE HCL 23172223655 No Longer Active Tor Gramajo MD Active AXERT 12.5 MG TABS 1 tablet by mouth at onset of migraine; may repeat x 1 if headache is still present in 2 hours ALMOTRIPTAN MALATE 12646748209 No Longer Active Tamera Mustafa MD PhD Active ELIMITE 5 % CREA Apply from head to toe including scalp and soles of feet. Wash off after 8 hours. PERMETHRIN 27958513968 No Longer Active Tamera Mustafa MD PhD Active AMOXICILLIN 500 MG TABS 2 PO bid x 10 days AMOXICILLIN 43037566528 No Longer Active Tamera Mustafa MD PhD Active MAXALT 5 MG TABS 1 pill by mouth at start of migraine; may repeat x 1 if no improvement in 2 hours RIZATRIPTAN BENZOATE 31560123806 No Longer Active Tamera Mustafa MD PhD Active BACTRIM DS 800-160 MG TAB 1 tab by mouth twice daily TRIMETHOPRIM-SULFAMETHOXAZOLE 67392320848 No Longer Active Alli Frye MD Active TRI-SPRINTEC 0.18/0.215/0.25 MG-35 MCG TABS 1 po qd as directed NORGESTIM-ETH ESTRAD TRIPHASIC 79950786840 Active Gerson EMANUEL Active AXERT 6.25 MG TABS 1 pill by mouth at start of migraine; may repeat x 1 in 1 hr if needed ALMOTRIPTAN MALATE 37199672180 No Longer Active Tamera Mustafa MD PhD Active GENERESS FE 0.8-25 MG-MCG CHEW 1 daily NORETHIN-ETH ESTRADIOL-FE 27444535490 No Longer Active Tamera Mustafa MD PhD Active DOXYCYCLINE HYCLATE 50 MG CAP 1 pill by mouth daily for acne 2012 DOXYCYCLINE HYCLATE 35554390821 No Longer Active Tamera Mustafa MD PhD Active AMOXICILLIN 875 MG TABS 1 TWO TIMES A DAY AMOXICILLIN 49404038887 No Longer Active Sera Mcdowell MD Active AMOXICILLIN 875 MG TABS 1 TWO TIMES A DAY AMOXICILLIN 875 MG TABS 462728 AMOXICILLIN Inactive DOXYCYCLINE HYCLATE 50 MG CAP 1 pill by mouth daily for acne 2012 DOXYCYCLINE HYCLATE 50 MG CAP 7548605 DOXYCYCLINE HYCLATE Inactive GENERESS FE 0.8-25 MG-MCG CHEW 1 daily GENERESS FE 0.8-25 MG-MCG CHEW 7884928 NORETHIN-ETH ESTRADIOL-FE Inactive AXERT 6.25 MG TABS 1 pill by mouth at start of migraine; may repeat x 1 in 1 hr if needed AXERT 6.25 MG TABS 462962 ALMOTRIPTAN MALATE Inactive MAXALT 5 MG TABS 1 pill by mouth at start of migraine; may repeat x 1 if no improvement in 2 hours MAXALT 5 MG TABS 059419 RIZATRIPTAN BENZOATE Inactive AMOXICILLIN 500 MG TABS 2 PO bid x 10 days AMOXICILLIN 500 MG TABS 759732 AMOXICILLIN Inactive ELIMITE 5 % CREA Apply from head to toe including scalp and soles of feet. Wash off after 8 hours. ELIMITE 5 % CREA 925032 PERMETHRIN Inactive AXERT 12.5 MG TABS 1 tablet by mouth at onset of migraine; may repeat x 1 if headache is still present in 2 hours AXERT 12.5 MG TABS 181248 ALMOTRIPTAN MALATE Inactive MINOCYCLINE HCL 50 MG CAP 1 pill by mouth daily for acne MINOCYCLINE HCL 50 MG CAP 089774 MINOCYCLINE HCL Inactive ZOMIG 5 MG TABS Take 1 tablet by mouth daily as needed ZOMIG 5 MG TABS 994284 ZOLMITRIPTAN Inactive ZOFRAN ODT 4 MG TBDP 1 po q6hr PRN Nausea ZOFRAN ODT 4 MG TBDP 584134 ONDANSETRON Inactive SUMATRIPTAN 20 MG/ACT SOLN 1 spray in one nostril at onset of migraine; may repeat in 2 hours if needed for continued migraine SUMATRIPTAN 20 MG/ACT SOLN 359672 SUMATRIPTAN Inactive BACTRIM DS 800-160 MG TAB 1 tab by mouth twice daily BACTRIM DS 800-160 MG TAB TRIMETHOPRIM-SULFAMETHOXAZOLE Inactive ZITHROMAX Z-ADALGISA 250 MG TABS 2 today, then 1 daily for 4 days 2013 ZITHROMAX Z-ADALGISA 250 MG TABS 6412143 AZITHROMYCIN Inactive BACTRIM DS 800-160 MG TAB 1 tab by mouth twice daily BACTRIM DS 800-160 MG TAB TRIMETHOPRIM-SULFAMETHOXAZOLE Inactive Advance Directives Directive Description Start Date CONSENT: MEDICATION HISTORY CONSENT FOR MINOR CARE Immunizations Vaccine Administration Date Value Standard Description Adacel (Tetanus, reduced Diphtheria, and acellular Pertussis Immunization) Adacel [[id number]] tetanus toxoid, reduced diphtheria toxoid, and acellular [...] Lab Report: CBC W/DIFF, Comp[place] [facility] [place] sodium, serum 134 mmol/L 235-595 6524/09/10 potassium, serum 4.4 mmol/L 3.5-5.2 chloride, serum [...] Lab Report: CBC W/DIFF, Comp. [place], [facility] [place] leukocyte count, [...] Negative bilirubin, urine Negative Negative urine color Young Colorless;Lightyellow;Straw;Yellow appearance, urine SlCloudy Clear specific gravity, urine >=1.030 1.000-1.030 pH, urine, semiquantitative 6.0 5.0-8.5 Encounters Code Encounter Date Provider Facility CPT-61655 Level 3 Est. Patient 17:25:12 CDT Tamera Mustafa MD PhD [facility] CPT-45308 Level 3 Est. Patient 15:47:52 CDT Jr Morrow MD [facility] CPT-29758 Level 3 Est. Patient 17:07:09 OCCUPATIONAL THERAPY DIRECTOR Tor Gramajo MD [facility] CPT-96450 Level 3 Est. Patient 11:34:16 CDT Gerson EMANUEL [facility] CPT-58528 Level 3 Est. Patient 16:33:58 CDT Edyta Otto APRN [facility] CPT-60836 Level 3 Est. Patient 15:17:40 OCCUPATIONAL THERAPY DIRECTOR Sera Mcdowell MD [facility] CPT-42525 Level 3 Est. Patient 16:32:34 OCCUPATIONAL THERAPY DIRECTOR Sera Mcdowell MD [facility] Procedures Code Procedure Name Date Entry Date Standard Description CPT-31316 Abd compl w upright 16:06:21 CDT CPT-PV Prev. Care Visit 12:33:36 OCCUPATIONAL THERAPY DIRECTOR
--- OUTSIDE RECORDS SUMMARY | 2018-01-18 03:30 | XMS REPORT | Clinical Summary ---
Author Author Admin, WILBERT Organization [employer] Address Unknown Phone Unavailable Allergies, Adverse Reactions, [...] Goiter, unspecified right HEALTH SCREENING V70.0 Active aTmera Mustafa MD PhD Routine general medical examination [...] 1 tab po BID prn anxiety ALPRAZOLAM 75901794672 Active Alli Frye MD Active QUETIAPINE FUMARATE 25 MG ORAL TABLET take 1 tab po qhs for anxiety QUETIAPINE FUMARATE 36127423901 Active Alli Frye MD Active METOPROLOL TARTRATE 25 MG ORAL TABLET take 1 tab po daily METOPROLOL TARTRATE 91200905455 Active Alli Frye MD Active HYDROXYZINE HCL 50 MG ORAL TABLET 1 tab po BID as needed for anxiety HYDROXYZINE HCL 00717182933 No Longer Active Alli Frye MD Active ZOLOFT 100 MG ORAL TABLET take 2 tabs po qday for mood and headaches. SERTRALINE HCL 66907048976 Active Juliane Melendez LPN Active BUSPIRONE HCL 10 MG ORAL TABLET 1 TAB PO PRN BUSPIRONE HCL 46651614802 No Longer Active Juliane Melendez LPN Active ALPRAZOLAM 0.5 MG ORAL TABLET take 1 tab po qday prn anxiety 2016 ALPRAZOLAM 37870763255 No Longer Active Tatyana Lam Active LORAZEPAM 0.5 MG ORAL TABLET take 1 tab po qday prn anxiety attacks LORAZEPAM 30753922682 No Longer Active Alli Frye MD Active RANITIDINE HCL 300 MG ORAL CAPSULE 1 tablet by mouth daily prn acid reflux RANITIDINE HCL 76967247869 Active Alli Frye MD Active AMITRIPTYLINE HCL 25 MG ORAL TABLET 1 tab by mouth daily at bedtime AMITRIPTYLINE HCL 93169165204 No Longer Active Alli Frye MD Active ZOLOFT 50 MG ORAL TABLET 1 tablet by mouth daily for mood and headache 07/10 SERTRALINE HCL 47103349391 No Longer Active Alli Frye MD Active AMITRIPTYLINE HCL 50 MG ORAL TABLET 1 po qhs for migraine AMITRIPTYLINE HCL 22938804737 No Longer Active Alli Frye MD Active LEVOTHYROXINE SODIUM 112 MCG ORAL TABLET 1 pill by mouth daily for thyroid LEVOTHYROXINE SODIUM 39331243823 Active Alli Frye MD Active AMITRIPTYLINE HCL 50 MG ORAL TABLET 1 pill by mouth nightly, for migraine prevention AMITRIPTYLINE HCL 58562514192 No Longer Active Alli Frye MD Active MAGNESIUM OXIDE 400 MG ORAL CAPSULE 1 po with migraine MAGNESIUM OXIDE 08376671194 No Longer Active Alli Frye MD Active AMITRIPTYLINE HCL 75 MG ORAL TABLET take 1 tab po qhs for migraines. AMITRIPTYLINE HCL 23171708719 No Longer Active Alli Frye MD Active MULTIVITAMIN GUMMIES ADULT ORAL TABLET CHEWABLE MULTIPLE VITAMINS-MINERALS 43871306213 Active Alli Frye MD Active TRANSDERM-SCOP (1.5 MG) 1 MG/3DAYS TRANSDERMAL PATCH 72 HOUR 1 patch every 3 days, as needed for motion sickness, start at least 4 hours hours prior to departure SCOPOLAMINE BASE 46778299201 No Longer Active Alli Frye MD Active LEVOTHYROXINE SODIUM 125 MCG ORAL TABLET 1 pill by mouth daily, for thyroid LEVOTHYROXINE SODIUM 70126725570 No Longer Active Alli Frye MD Active ZOFRAN ODT 4 MG ORAL TABLET DISINTEGRATING 1 pill dissolved by mouth every 4 hours if needed for nausea ONDANSETRON 84456606471 Active Tamera Mustafa MD PhD Active SUMATRIPTAN 20 MG/ACT NASAL SOLUTION 1 spray in one nostril at onset of migraine; may repeat in 2 hours if needed for continued migraine SUMATRIPTAN 49640547607 No Longer Active Tamera Mustafa MD PhD Active ZOFRAN ODT 4 MG ORAL TABLET DISINTEGRATING 1 po q6hr PRN Nausea ONDANSETRON 32276416670 No Longer Active rJ Morrow MD Active EXCEDRIN MIGRAINE 250-250-65 MG ORAL TABLET 1 tab po as needed [id number] 36363714765 Active Jr Morrow MD Active ZOMIG 5 MG ORAL TABLET Take 1 tablet by mouth daily as needed ZOLMITRIPTAN 09997787759 No Longer Active Jr Morrow MD Active BACTRIM DS 800-160 MG ORAL TABLET 1 tab by mouth twice daily 2013 TRIMETHOPRIM-SULFAMETHOXAZOLE 53623104671 No Longer Active Tamera Mustafa MD PhD Active ZITHROMAX Z-ADALGISA 250 MG ORAL TABLET 2 today, then 1 daily for 4 days AZITHROMYCIN 17905500351 No Longer Active Tor Gramajo MD Active MINOCYCLINE HCL 50 MG ORAL CAPSULE 1 pill by mouth daily for acne MINOCYCLINE HCL 75672210851 No Longer Active Tor Gramajo MD Active AXERT 12.5 MG ORAL TABLET 1 tablet by mouth at onset of migraine; may repeat x 1 if headache is still present in 2 hours ALMOTRIPTAN MALATE 00626008702 No Longer Active Tamera Mustafa MD PhD Active ELIMITE 5 % EXTERNAL CREAM Apply from head to toe including scalp and soles of feet. Wash off after 8 hours. PERMETHRIN 91388159257 No Longer Active Tamera Mustafa MD PhD Active AMOXICILLIN 500 MG ORAL TABLET 2 PO bid x 10 days AMOXICILLIN 95946915263 No Longer Active Tamera Mustafa MD PhD Active MAXALT 5 MG ORAL TABLET 1 pill by mouth at start of migraine; may repeat x 1 if no improvement in 2 hours RIZATRIPTAN BENZOATE 18022858411 No Longer Active Tamera Mustafa MD PhD Active BACTRIM DS 800-160 MG ORAL TABLET 1 tab by mouth twice daily 2012 TRIMETHOPRIM-SULFAMETHOXAZOLE 98433864274 No Longer Active Alli Frye MD Active TRI-SPRINTEC 0.18/0.215/0.25 MG-35 MCG ORAL TABLET 1 po qd as directed 06/28 NORGESTIM-ETH ESTRAD TRIPHASIC 76569711615 Active Alli Frye MD Active AXERT 6.25 MG ORAL TABLET 1 pill by mouth at start of migraine; may repeat x 1 in 1 hr if needed ALMOTRIPTAN MALATE 97019328426 No Longer Active Tamera Mustafa MD PhD Active GENERESS FE 0.8-25 MG-MCG ORAL TABLET CHEWABLE 1 daily NORETHIN-ETH ESTRADIOL-FE 04148056922 No Longer Active Tamera Mustafa MD PhD Active DOXYCYCLINE HYCLATE 50 MG ORAL CAPSULE 1 pill by mouth daily for acne DOXYCYCLINE HYCLATE 46932813695 No Longer Active Tamera Mustafa MD PhD Active AMOXICILLIN 875 MG ORAL TABLET 1 TWO TIMES A DAY AMOXICILLIN 82974336598 No Longer Active Sera Mcdowell MD Active AMOXICILLIN 875 MG ORAL TABLET 1 TWO TIMES A DAY AMOXICILLIN 875 MG ORAL TABLET 210641 AMOXICILLIN Inactive DOXYCYCLINE HYCLATE 50 MG ORAL CAPSULE 1 pill by mouth daily for acne DOXYCYCLINE HYCLATE 50 MG ORAL CAPSULE 6202432 DOXYCYCLINE HYCLATE Inactive GENERESS FE 0.8-25 MG-MCG ORAL TABLET CHEWABLE 1 daily GENERESS FE 0.8-25 MG-MCG ORAL TABLET CHEWABLE 0750502 NORETHIN-ETH ESTRADIOL-FE Inactive AXERT 6.25 MG ORAL TABLET 1 pill by mouth at start of migraine; may repeat x 1 in 1 hr if needed AXERT 6.25 MG ORAL TABLET 577477 ALMOTRIPTAN MALATE Inactive MAXALT 5 MG ORAL TABLET 1 pill by mouth at start of migraine; may repeat x 1 if no improvement in 2 hours MAXALT 5 MG ORAL TABLET 912154 RIZATRIPTAN BENZOATE Inactive AMOXICILLIN 500 MG ORAL TABLET 2 PO bid x 10 days AMOXICILLIN 500 MG ORAL TABLET 475788 AMOXICILLIN Inactive ELIMITE 5 % EXTERNAL CREAM Apply from head to toe including scalp and soles of feet. Wash off after 8 hours. ELIMITE 5 % EXTERNAL CREAM 819951 PERMETHRIN Inactive AXERT 12.5 MG ORAL TABLET 1 tablet by mouth at onset of migraine; may repeat x 1 if headache is still present in 2 hours AXERT 12.5 MG ORAL TABLET 359727 ALMOTRIPTAN MALATE Inactive MINOCYCLINE HCL 50 MG ORAL CAPSULE 1 pill by mouth daily for acne MINOCYCLINE HCL 50 MG ORAL CAPSULE 134835 MINOCYCLINE HCL Inactive ZOMIG 5 MG ORAL TABLET Take 1 tablet by mouth daily as needed ZOMIG 5 MG ORAL TABLET 787533 ZOLMITRIPTAN Inactive ZOFRAN ODT 4 MG ORAL TABLET DISINTEGRATING 1 po q6hr PRN Nausea ZOFRAN ODT 4 MG ORAL TABLET DISINTEGRATING 457370 ONDANSETRON Inactive SUMATRIPTAN 20 MG/ACT NASAL SOLUTION 1 spray in one nostril at onset of migraine; may repeat in 2 hours if needed for continued migraine SUMATRIPTAN 20 MG/ACT NASAL SOLUTION 209084 SUMATRIPTAN Inactive LEVOTHYROXINE SODIUM 125 MCG ORAL TABLET 1 pill by mouth daily, for thyroid LEVOTHYROXINE SODIUM 125 MCG ORAL TABLET 584984 LEVOTHYROXINE SODIUM Inactive TRANSDERM-SCOP (1.5 MG) 1 MG/3DAYS TRANSDERMAL PATCH 72 HOUR 1 patch every 3 days, as needed for motion sickness, start at least 4 hours hours prior to departure TRANSDERM-SCOP (1.5 MG) 1 MG/3DAYS TRANSDERMAL PATCH 72 HOUR SCOPOLAMINE BASE Inactive AMITRIPTYLINE HCL 75 MG ORAL TABLET take 1 tab po qhs for migraines. AMITRIPTYLINE HCL 75 MG ORAL TABLET 917672 AMITRIPTYLINE HCL Inactive MAGNESIUM OXIDE 400 MG ORAL CAPSULE 1 po with migraine MAGNESIUM OXIDE 400 MG ORAL CAPSULE 794317 MAGNESIUM OXIDE Inactive AMITRIPTYLINE HCL 50 MG ORAL TABLET 1 pill by mouth nightly, for migraine prevention AMITRIPTYLINE HCL 50 MG ORAL TABLET 242448 AMITRIPTYLINE HCL Inactive AMITRIPTYLINE HCL 50 MG ORAL TABLET 1 po qhs for migraine AMITRIPTYLINE HCL 50 MG ORAL TABLET 532619 AMITRIPTYLINE HCL Inactive ZOLOFT 50 MG ORAL TABLET 1 tablet by mouth daily for mood and headache 07/10 ZOLOFT 50 MG ORAL TABLET 467337 SERTRALINE HCL Inactive AMITRIPTYLINE HCL 25 MG ORAL TABLET 1 tab by mouth daily at bedtime AMITRIPTYLINE HCL 25 MG ORAL TABLET 395671 AMITRIPTYLINE HCL Inactive LORAZEPAM 0.5 MG ORAL TABLET take 1 tab po qday prn anxiety attacks LORAZEPAM 0.5 MG ORAL TABLET 277471 LORAZEPAM Inactive ALPRAZOLAM 0.5 MG ORAL TABLET take 1 tab po qday prn anxiety 2016 ALPRAZOLAM 0.5 MG ORAL TABLET 406867 ALPRAZOLAM Inactive BUSPIRONE HCL 10 MG ORAL TABLET 1 TAB PO PRN BUSPIRONE HCL 10 MG ORAL TABLET 450038 BUSPIRONE HCL Inactive HYDROXYZINE HCL 50 MG ORAL TABLET 1 tab po BID as needed for anxiety HYDROXYZINE HCL 50 MG ORAL TABLET 633267 HYDROXYZINE HCL Inactive BACTRIM DS 800-160 MG ORAL TABLET 1 tab by mouth twice daily 2012 BACTRIM DS 800-160 MG ORAL TABLET 936478 TRIMETHOPRIM- SULFAMETHOXAZOLE Inactive ZITHROMAX Z-ADALGISA 250 MG ORAL TABLET 2 today, then 1 daily for 4 days ZITHROMAX Z-ADALGISA 250 MG ORAL TABLET 905198 AZITHROMYCIN Inactive BACTRIM DS 800-160 MG ORAL TABLET 1 tab by mouth twice daily 2013 BACTRIM DS 800-160 MG ORAL TABLET 225646 TRIMETHOPRIM- SULFAMETHOXAZOLE Inactive Advance Directives Directive Description Start Date CONSENT: MEDICATION HISTORY CONSENT FOR MINOR CARE Immunizations Vaccine Administration Date Value Standard Description Adacel (Tetanus, reduced Diphtheria, and acellular Pertussis Immunization) Adacel [[id number]] tetanus toxoid, reduced diphtheria toxoid, and acellular [...] 0.36-3.74 Encounters Code Encounter Date Provider Facility CPT-94919 Level 4 Est. Patient 15:50:37 COVER MAKING MACHINE OPERATOR Alli Frye MD [facility]-04390 Level 4 Est. Patient 23:05:57 CDT Alli Frye MD [facility]-43313 Level 4 Est. Patient 12:25:34 CDT Alli Frye MD [facility]-63616 Level 4 Est. Patient 13:40:53 CDT Alli Frye MD [facility]-92721 Level 4 Est. Patient 13:18:45 COVER MAKING MACHINE OPERATOR Alli Frye MD [facility]-82505 Level 4 Est. Patient 11:32:52 COVER MAKING MACHINE OPERATOR Alli Frye MD [facility]-79283 Level 4 Est. Patient 14:47:16 CDT Alli Frye MD [facility]-84121 Level 3 Est. Patient 17:25:12 CDT Tamera Mustafa MD PhD [facility]-51008 Level 3 Est. Patient 15:47:52 CDT Jr Morrow MD [facility] CPT-93882 Level 3 Est. Patient 17:07:09 COVER MAKING MACHINE OPERATOR Tor Gramajo MD [facility] CPT-05199 Level 3 Est. Patient 11:34:16 CDT Gerson EMANUEL [facility] CPT-31393 Level 3 Est. Patient 16:33:58 CDT Edyta Otto APRN [facility] CPT-05933 Level 3 Est. Patient 15:17:40 COVER MAKING MACHINE OPERATOR Sera Mcdowell MD [facility] CPT-78657 Level 3 Est. Patient 16:32:34 COVER MAKING MACHINE OPERATOR Sera Mcdowell MD [facility] Procedures Code Procedure Name Date Entry Date Standard Description CPT-92176 First Vx - Ix admin via ID IM or jet injects without counseling by physician 15:09:59 CDT CPT-37752 Menveo Intramuscular Solution Reconstituted 15:09:59 CDT CPT-55021 Meningococcal Conjugate Vacine (Menactra) 12:25:34 CDT CPT-03249 Abd compl w upright 16:06:21 CDT CPT-PV Prev. Care Visit 12:33:36 COVER MAKING MACHINE OPERATOR
--- OUTSIDE RECORDS SUMMARY | 2018-01-18 03:31 | XMS REPORT | Clinical Summary ---
Author Author Admin, WILBERT Aleman [facility] Address Unknown Phone Unavailable Allergies, Adverse [...] hours hours prior to departure SCOPOLAMINE BASE [id number] Active Tamera Mustafa MD PhD Active ZOFRAN ODT 4 MG TBDP 1 pill dissolved by mouth every 4 hours if needed for nausea ONDANSETRON 95603134079 Active Tamera Mustafa MD PhD Active AMITRIPTYLINE HCL 25 MG ORAL TABS 1 pill by mouth nightly, for migraine prevention AMITRIPTYLINE HCL 21816293309 Active Alli Frye MD Active LEVOTHYROXINE SODIUM 100 MCG ORAL TABS 1 tab by mouth daily LEVOTHYROXINE SODIUM 88830903745 Active Tamera Mustafa MD PhD Active SUMATRIPTAN 20 MG/ACT SOLN 1 spray in one nostril at onset of migraine; may repeat in 2 hours if needed for continued migraine SUMATRIPTAN 37396976503 No Longer Active Tamera Mustafa MD PhD Active ZOFRAN ODT 4 MG TBDP 1 po q6hr PRN Nausea ONDANSETRON 78328255023 No Longer Active Jr Morrow MD Active EXCEDRIN MIGRAINE 250-250-65 MG TABS 1 tab po as needed [id number] 34139598932 Active Jr Morrow MD Active ZOMIG 5 MG TABS Take 1 tablet by mouth daily as needed ZOLMITRIPTAN 71328748942 No Longer Active Jr Morrow MD Active BACTRIM DS 800-160 MG TAB 1 tab by mouth twice daily TRIMETHOPRIM-SULFAMETHOXAZOLE 24830592491 No Longer Active Tamera Mustafa MD PhD Active ZITHROMAX Z-ADALGISA 250 MG TABS 2 today, then 1 daily for 4 days 2013 AZITHROMYCIN 11826938938 No Longer Active Tor Gramajo MD Active MINOCYCLINE HCL 50 MG CAP 1 pill by mouth daily for acne MINOCYCLINE HCL 65918927864 No Longer Active Tor Gramajo MD Active AXERT 12.5 MG TABS 1 tablet by mouth at onset of migraine; may repeat x 1 if headache is still present in 2 hours ALMOTRIPTAN MALATE 99067274735 No Longer Active Tamera Mustafa MD PhD Active ELIMITE 5 % CREA Apply from head to toe including scalp and soles of feet. Wash off after 8 hours. PERMETHRIN 01089253932 No Longer Active Tamera Mustafa MD PhD Active AMOXICILLIN 500 MG TABS 2 PO bid x 10 days AMOXICILLIN 62862752968 No Longer Active Tamera Mustafa MD PhD Active MAXALT 5 MG TABS 1 pill by mouth at start of migraine; may repeat x 1 if no improvement in 2 hours RIZATRIPTAN BENZOATE 64640618905 No Longer Active Tamera Mustafa MD PhD Active BACTRIM DS 800-160 MG TAB 1 tab by mouth twice daily TRIMETHOPRIM-SULFAMETHOXAZOLE 32398709208 No Longer Active Alli Frye MD Active TRI-SPRINTEC 0.18/0.215/0.25 MG-35 MCG TABS 1 po qd as directed NORGESTIM-ETH ESTRAD TRIPHASIC 37002572143 Active Gerson EMANUEL Active AXERT 6.25 MG TABS 1 pill by mouth at start of migraine; may repeat x 1 in 1 hr if needed ALMOTRIPTAN MALATE 43902477029 No Longer Active Tamera Mustafa MD PhD Active GENERESS FE 0.8-25 MG-MCG CHEW 1 daily NORETHIN-ETH ESTRADIOL-FE 73684985587 No Longer Active Tamera Mustafa MD PhD Active DOXYCYCLINE HYCLATE 50 MG CAP 1 pill by mouth daily for acne 2012 DOXYCYCLINE HYCLATE 57591617608 No Longer Active Tamera Mustafa MD PhD Active AMOXICILLIN 875 MG TABS 1 TWO TIMES A DAY AMOXICILLIN 15699415871 No Longer Active Sera Mcdowell MD Active AMOXICILLIN 875 MG TABS 1 TWO TIMES A DAY AMOXICILLIN 875 MG TABS 842174 AMOXICILLIN Inactive DOXYCYCLINE HYCLATE 50 MG CAP 1 pill by mouth daily for acne 2012 DOXYCYCLINE HYCLATE 50 MG CAP 6628144 DOXYCYCLINE HYCLATE Inactive GENERESS FE 0.8-25 MG-MCG CHEW 1 daily GENERESS FE 0.8-25 MG-MCG CHEW 9491999 NORETHIN-ETH ESTRADIOL-FE Inactive AXERT 6.25 MG TABS 1 pill by mouth at start of migraine; may repeat x 1 in 1 hr if needed AXERT 6.25 MG TABS 961066 ALMOTRIPTAN MALATE Inactive MAXALT 5 MG TABS 1 pill by mouth at start of migraine; may repeat x 1 if no improvement in 2 hours MAXALT 5 MG TABS 823323 RIZATRIPTAN BENZOATE Inactive AMOXICILLIN 500 MG TABS 2 PO bid x 10 days AMOXICILLIN 500 MG TABS 786728 AMOXICILLIN Inactive ELIMITE 5 % CREA Apply from head to toe including scalp and soles of feet. Wash off after 8 hours. ELIMITE 5 % CREA 506294 PERMETHRIN Inactive AXERT 12.5 MG TABS 1 tablet by mouth at onset of migraine; may repeat x 1 if headache is still present in 2 hours AXERT 12.5 MG TABS 300430 ALMOTRIPTAN MALATE Inactive MINOCYCLINE HCL 50 MG CAP 1 pill by mouth daily for acne MINOCYCLINE HCL 50 MG CAP 342305 MINOCYCLINE HCL Inactive ZOMIG 5 MG TABS Take 1 tablet by mouth daily as needed ZOMIG 5 MG TABS 439589 ZOLMITRIPTAN Inactive ZOFRAN ODT 4 MG TBDP 1 po q6hr PRN Nausea ZOFRAN ODT 4 MG TBDP 797637 ONDANSETRON Inactive SUMATRIPTAN 20 MG/ACT SOLN 1 spray in one nostril at onset of migraine; may repeat in 2 hours if needed for continued migraine SUMATRIPTAN 20 MG/ACT SOLN 174188 SUMATRIPTAN Inactive BACTRIM DS 800-160 MG TAB 1 tab by mouth twice daily BACTRIM DS 800-160 MG TAB TRIMETHOPRIM-SULFAMETHOXAZOLE Inactive ZITHROMAX Z-ADALGISA 250 MG TABS 2 today, then 1 daily for 4 days 2013 ZITHROMAX Z-ADALGISA 250 MG TABS 0285193 AZITHROMYCIN Inactive BACTRIM DS 800-160 MG TAB 1 tab by mouth twice daily BACTRIM DS 800-160 MG TAB TRIMETHOPRIM-SULFAMETHOXAZOLE Inactive Advance Directives Directive Description Start Date CONSENT: MEDICATION HISTORY CONSENT FOR MINOR CARE Immunizations Vaccine Administration Date Value Standard Description Adacel (Tetanus, reduced Diphtheria, and acellular Pertussis Immunization) Adacel [[id number]] tetanus toxoid, reduced diphtheria toxoid, and acellular [...] Lab Report: CBC W/DIFF, Comp. [place], [facility] [place] sodium, serum 134 mmol/L 824-415 1862/09/10 potassium, serum 4.4 mmol/L 3.5-5.2 chloride, serum [...] Lab Report: CBC W/DIFF, Comp. Metabolic Panel, [facility] [place] Hematology leukocyte count, blood 18.3 10^3/MM^3 [...] Negative bilirubin, urine Negative Negative urine color [place] Colorless;Lightyellow;Straw;Yellow appearance, urine SlCloudy Clear specific gravity, urine >=1.030 1.000-1.030 pH, urine, semiquantitative 6.0 5.0-8.5 Encounters Code Encounter Date Provider Facility CPT-18990 Level 3 Est. Patient 17:25:12 CDT Tamera Mustafa MD PhD [facility] CPT-27879 Level 3 Est. Patient 15:47:52 CDT Jr Morrow MD [facility] CPT-54140 Level 3 Est. Patient 17:07:09 ACCESS REGISTRAR Tor Gramajo MD [facility] CPT-23628 Level 3 Est. Patient 11:34:16 CDT Gerson EMANUEL [facility] CPT-18242 Level 3 Est. Patient 16:33:58 CDT Edyta Otto APRN [facility] CPT-19416 Level 3 Est. Patient 15:17:40 ACCESS REGISTRAR Sera Mcdowell MD [facility] CPT-54614 Level 3 Est. Patient 16:32:34 ACCESS REGISTRAR Sera Mcdowell MD [facility] Procedures Code Procedure Name Date Entry Date Standard Description CPT-20967 Abd compl w upright 16:06:21 CDT CPT-PV Prev. Care Visit 12:33:36 ACCESS REGISTRAR
--- OUTSIDE RECORDS SUMMARY | 2018-01-18 03:31 | XMS REPORT | Clinical Summary ---
Author Author Admin, WILBERT Organization [facility] Address Unknown Phone Unavailable Allergies, Adverse Reactions, [...] 1 tab po BID prn anxiety ALPRAZOLAM 37794897225 Active Jr Morrow MD Active QUETIAPINE FUMARATE 25 MG ORAL TABLET take 1 tab po qhs for anxiety QUETIAPINE FUMARATE 33360821730 Active Alli Frye MD Active METOPROLOL TARTRATE 25 MG ORAL TABLET take 1 tab po daily METOPROLOL TARTRATE 37495303318 Active Alli Frye MD Active HYDROXYZINE HCL 50 MG ORAL TABLET 1 tab po BID as needed for anxiety HYDROXYZINE HCL 92894804646 No Longer Active Alli Frye MD Active ZOLOFT 100 MG ORAL TABLET take 2 tabs po qday for mood and headaches. SERTRALINE HCL 88649447913 Active Juliane Melendez LPN Active BUSPIRONE HCL 10 MG ORAL TABLET 1 TAB PO PRN BUSPIRONE HCL 69570684285 No Longer Active Juliane Melendez LPN Active ALPRAZOLAM 0.5 MG ORAL TABLET take 1 tab po qday prn anxiety 2016 ALPRAZOLAM 89995089659 No Longer Active Tatyana Lam Active LORAZEPAM 0.5 MG ORAL TABLET take 1 tab po qday prn anxiety attacks LORAZEPAM 84378193269 No Longer Active Alli Frye MD Active RANITIDINE HCL 300 MG ORAL CAPSULE 1 tablet by mouth daily prn acid reflux RANITIDINE HCL 89697572531 Active Alli Frye MD Active AMITRIPTYLINE HCL 25 MG ORAL TABLET 1 tab by mouth daily at bedtime AMITRIPTYLINE HCL 12146179435 No Longer Active Alli Frye MD Active ZOLOFT 50 MG ORAL TABLET 1 tablet by mouth daily for mood and headache 07/10 SERTRALINE HCL 01225980274 No Longer Active Alli Frye MD Active AMITRIPTYLINE HCL 50 MG ORAL TABLET 1 po qhs for migraine AMITRIPTYLINE HCL 89612165663 No Longer Active Alli Frye MD Active LEVOTHYROXINE SODIUM 112 MCG ORAL TABLET 1 pill by mouth daily for thyroid LEVOTHYROXINE SODIUM 07671083388 Active Alli Frye MD Active AMITRIPTYLINE HCL 50 MG ORAL TABLET 1 pill by mouth nightly, for migraine prevention AMITRIPTYLINE HCL 58369847049 No Longer Active Alli Frye MD Active MAGNESIUM OXIDE 400 MG ORAL CAPSULE 1 po with migraine MAGNESIUM OXIDE 59669834412 No Longer Active Alli Frye MD Active AMITRIPTYLINE HCL 75 MG ORAL TABLET take 1 tab po qhs for migraines. AMITRIPTYLINE HCL 93907515198 No Longer Active Alli Frye MD Active MULTIVITAMIN GUMMIES ADULT ORAL TABLET CHEWABLE MULTIPLE VITAMINS-MINERALS 30689750041 Active Alli Frye MD Active TRANSDERM-SCOP (1.5 MG) 1 MG/3DAYS TRANSDERMAL PATCH 72 HOUR 1 patch every 3 days, as needed for motion sickness, start at least 4 hours hours prior to departure SCOPOLAMINE BASE 14279451961 No Longer Active Alli Frye MD Active LEVOTHYROXINE SODIUM 125 MCG ORAL TABLET 1 pill by mouth daily, for thyroid LEVOTHYROXINE SODIUM 26798535994 No Longer Active Alli Frye MD Active ZOFRAN ODT 4 MG ORAL TABLET DISINTEGRATING 1 pill dissolved by mouth every 4 hours if needed for nausea ONDANSETRON 63331455187 Active Tamera Mustafa MD PhD Active SUMATRIPTAN 20 MG/ACT NASAL SOLUTION 1 spray in one nostril at onset of migraine; may repeat in 2 hours if needed for continued migraine SUMATRIPTAN 83219813205 No Longer Active Tamera Mustafa MD PhD Active ZOFRAN ODT 4 MG ORAL TABLET DISINTEGRATING 1 po q6hr PRN Nausea ONDANSETRON 92402866372 No Longer Active Jr Morrow MD Active EXCEDRIN MIGRAINE 250-250-65 MG ORAL TABLET 1 tab po as needed [id number] 60114628591 Active Jr Morrow MD Active ZOMIG 5 MG ORAL TABLET Take 1 tablet by mouth daily as needed ZOLMITRIPTAN 79310029890 No Longer Active Jr Morrow MD Active BACTRIM DS 800-160 MG ORAL TABLET 1 tab by mouth twice daily 2013 TRIMETHOPRIM-SULFAMETHOXAZOLE 95359539357 No Longer Active Tamera Mustafa MD PhD Active ZITHROMAX Z-ADALGISA 250 MG ORAL TABLET 2 today, then 1 daily for 4 days AZITHROMYCIN 07359740053 No Longer Active Tor Gramajo MD Active MINOCYCLINE HCL 50 MG ORAL CAPSULE 1 pill by mouth daily for acne MINOCYCLINE HCL 52112437176 No Longer Active Tor Gramajo MD Active AXERT 12.5 MG ORAL TABLET 1 tablet by mouth at onset of migraine; may repeat x 1 if headache is still present in 2 hours ALMOTRIPTAN MALATE 42463005177 No Longer Active Tamera Mustafa MD PhD Active ELIMITE 5 % EXTERNAL CREAM Apply from head to toe including scalp and soles of feet. Wash off after 8 hours. PERMETHRIN 21930552260 No Longer Active Tamera Mustafa MD PhD Active AMOXICILLIN 500 MG ORAL TABLET 2 PO bid x 10 days AMOXICILLIN 26838238127 No Longer Active Tamera Mustafa MD PhD Active MAXALT 5 MG ORAL TABLET 1 pill by mouth at start of migraine; may repeat x 1 if no improvement in 2 hours RIZATRIPTAN BENZOATE 43935202085 No Longer Active Tamera Mustafa MD PhD Active BACTRIM DS 800-160 MG ORAL TABLET 1 tab by mouth twice daily 2012 TRIMETHOPRIM-SULFAMETHOXAZOLE 21582233031 No Longer Active Alli Frye MD Active TRI-SPRINTEC 0.18/0.215/0.25 MG-35 MCG ORAL TABLET 1 po qd as directed 06/28 NORGESTIM-ETH ESTRAD TRIPHASIC 04159474659 Active Alli Frye MD Active AXERT 6.25 MG ORAL TABLET 1 pill by mouth at start of migraine; may repeat x 1 in 1 hr if needed ALMOTRIPTAN MALATE 92685629922 No Longer Active Tamera Mustafa MD PhD Active GENERESS FE 0.8-25 MG-MCG ORAL TABLET CHEWABLE 1 daily NORETHIN-ETH ESTRADIOL-FE 83726336355 No Longer Active Tamera Mustafa MD PhD Active DOXYCYCLINE HYCLATE 50 MG ORAL CAPSULE 1 pill by mouth daily for acne DOXYCYCLINE HYCLATE 20223048035 No Longer Active Tamera Mustafa MD PhD Active AMOXICILLIN 875 MG ORAL TABLET 1 TWO TIMES A DAY AMOXICILLIN 98890966563 No Longer Active Sera Mcdowell MD Active AMOXICILLIN 875 MG ORAL TABLET 1 TWO TIMES A DAY AMOXICILLIN 875 MG ORAL TABLET 531142 AMOXICILLIN Inactive DOXYCYCLINE HYCLATE 50 MG ORAL CAPSULE 1 pill by mouth daily for acne DOXYCYCLINE HYCLATE 50 MG ORAL CAPSULE 2102030 DOXYCYCLINE HYCLATE Inactive GENERESS FE 0.8-25 MG-MCG ORAL TABLET CHEWABLE 1 daily GENERESS FE 0.8-25 MG-MCG ORAL TABLET CHEWABLE 9311685 NORETHIN-ETH ESTRADIOL-FE Inactive AXERT 6.25 MG ORAL TABLET 1 pill by mouth at start of migraine; may repeat x 1 in 1 hr if needed AXERT 6.25 MG ORAL TABLET 038985 ALMOTRIPTAN MALATE Inactive MAXALT 5 MG ORAL TABLET 1 pill by mouth at start of migraine; may repeat x 1 if no improvement in 2 hours MAXALT 5 MG ORAL TABLET 922690 RIZATRIPTAN BENZOATE Inactive AMOXICILLIN 500 MG ORAL TABLET 2 PO bid x 10 days AMOXICILLIN 500 MG ORAL TABLET 511219 AMOXICILLIN Inactive ELIMITE 5 % EXTERNAL CREAM Apply from head to toe including scalp and soles of feet. Wash off after 8 hours. ELIMITE 5 % EXTERNAL CREAM 844154 PERMETHRIN Inactive AXERT 12.5 MG ORAL TABLET 1 tablet by mouth at onset of migraine; may repeat x 1 if headache is still present in 2 hours AXERT 12.5 MG ORAL TABLET 055869 ALMOTRIPTAN MALATE Inactive MINOCYCLINE HCL 50 MG ORAL CAPSULE 1 pill by mouth daily for acne MINOCYCLINE HCL 50 MG ORAL CAPSULE 234662 MINOCYCLINE HCL Inactive ZOMIG 5 MG ORAL TABLET Take 1 tablet by mouth daily as needed ZOMIG 5 MG ORAL TABLET 696199 ZOLMITRIPTAN Inactive ZOFRAN ODT 4 MG ORAL TABLET DISINTEGRATING 1 po q6hr PRN Nausea ZOFRAN ODT 4 MG ORAL TABLET DISINTEGRATING 061426 ONDANSETRON Inactive SUMATRIPTAN 20 MG/ACT NASAL SOLUTION 1 spray in one nostril at onset of migraine; may repeat in 2 hours if needed for continued migraine SUMATRIPTAN 20 MG/ACT NASAL SOLUTION 249102 SUMATRIPTAN Inactive LEVOTHYROXINE SODIUM 125 MCG ORAL TABLET 1 pill by mouth daily, for thyroid LEVOTHYROXINE SODIUM 125 MCG ORAL TABLET 939483 LEVOTHYROXINE SODIUM Inactive TRANSDERM-SCOP (1.5 MG) 1 MG/3DAYS TRANSDERMAL PATCH 72 HOUR 1 patch every 3 days, as needed for motion sickness, start at least 4 hours hours prior to departure TRANSDERM-SCOP (1.5 MG) 1 MG/3DAYS TRANSDERMAL PATCH 72 HOUR SCOPOLAMINE BASE Inactive AMITRIPTYLINE HCL 75 MG ORAL TABLET take 1 tab po qhs for migraines. AMITRIPTYLINE HCL 75 MG ORAL TABLET 259825 AMITRIPTYLINE HCL Inactive MAGNESIUM OXIDE 400 MG ORAL CAPSULE 1 po with migraine MAGNESIUM OXIDE 400 MG ORAL CAPSULE 648063 MAGNESIUM OXIDE Inactive AMITRIPTYLINE HCL 50 MG ORAL TABLET 1 pill by mouth nightly, for migraine prevention AMITRIPTYLINE HCL 50 MG ORAL TABLET 067726 AMITRIPTYLINE HCL Inactive AMITRIPTYLINE HCL 50 MG ORAL TABLET 1 po qhs for migraine AMITRIPTYLINE HCL 50 MG ORAL TABLET 344078 AMITRIPTYLINE HCL Inactive ZOLOFT 50 MG ORAL TABLET 1 tablet by mouth daily for mood and headache 07/10 ZOLOFT 50 MG ORAL TABLET 603666 SERTRALINE HCL Inactive AMITRIPTYLINE HCL 25 MG ORAL TABLET 1 tab by mouth daily at bedtime AMITRIPTYLINE HCL 25 MG ORAL TABLET 240445 AMITRIPTYLINE HCL Inactive LORAZEPAM 0.5 MG ORAL TABLET take 1 tab po qday prn anxiety attacks LORAZEPAM 0.5 MG ORAL TABLET 589115 LORAZEPAM Inactive ALPRAZOLAM 0.5 MG ORAL TABLET take 1 tab po qday prn anxiety 2016 ALPRAZOLAM 0.5 MG ORAL TABLET 155229 ALPRAZOLAM Inactive BUSPIRONE HCL 10 MG ORAL TABLET 1 TAB PO PRN BUSPIRONE HCL 10 MG ORAL TABLET 820897 BUSPIRONE HCL Inactive HYDROXYZINE HCL 50 MG ORAL TABLET 1 tab po BID as needed for anxiety HYDROXYZINE HCL 50 MG ORAL TABLET 018351 HYDROXYZINE HCL Inactive BACTRIM DS 800-160 MG ORAL TABLET 1 tab by mouth twice daily 2012 BACTRIM DS 800-160 MG ORAL TABLET 348109 TRIMETHOPRIM- SULFAMETHOXAZOLE Inactive ZITHROMAX Z-ADALGISA 250 MG ORAL TABLET 2 today, then 1 daily for 4 days ZITHROMAX Z-ADALGISA 250 MG ORAL TABLET 000157 AZITHROMYCIN Inactive BACTRIM DS 800-160 MG ORAL TABLET 1 tab by mouth twice daily 2013 BACTRIM DS 800-160 MG ORAL TABLET 007921 TRIMETHOPRIM- SULFAMETHOXAZOLE Inactive Advance Directives Directive Description Start Date CONSENT: MEDICATION HISTORY CONSENT FOR MINOR CARE Immunizations Vaccine Administration Date Value Standard Description Adacel (Tetanus, reduced Diphtheria, and acellular Pertussis Immunization) Adacel [[id number]] tetanus toxoid, reduced diphtheria toxoid, and acellular [...] temperature weight E&M 144.31 [lb_av] Weight Measured Diagnostic Results Date Name Value Unit Range Description Lab Report: Free Thyroxine (L), Thyroid Stimulating Hormone (L) - Chemistry thyroxine, serum, free 1.42 ng/dL 0.78-1.34 TSH 1.28 m[iU]/mL 0.36-3.74 Encounters Code Encounter Date Provider Facility CPT-94717 Level 4 Est. Patient 15:50:37 [employer]ICER Alli Frye MD [facility]-11955 Level 4 Est. Patient 23:05:57 CDT Alli Frye MD [facility] CPT-47163 Level 4 Est. Patient 12:25:34 CDT Alli Frye MD [facility]-60335 Level 4 Est. Patient 13:40:53 CDT Alli Frye MD [facility]-93148 Level 4 Est. Patient 13:18:45 [employer] SERVICER Alli Frye MD [facility]-46974 Level 4 Est. Patient 11:32:52 [employer] ROOM SERVICER Alli Frye MD [facility]-44873 Level 4 Est. Patient 14:47:16 CDT Alli Frye MD [facility] CPT-19567 Level 3 Est. Patient 17:25:12 CDT Tamera Mustafa MD PhD [facility]-30464 Level 3 Est. Patient 15:47:52 CDT Jr Morrow MD [facility] CPT-03410 Level 3 Est. Patient 17:07:09 [employer] SERVICER Tor Gramajo MD [facility] CPT-49283 Level 3 Est. Patient 11:34:16 CDT Gerson EMANUEL [facility] CPT-47094 Level 3 Est. Patient 16:33:58 CDT Edyta Otto APRN [facility] CPT-04019 Level 3 Est. Patient 15:17:40 [employer] SERVICER Sera Mcdowell MD [facility] CPT-83202 Level 3 Est. Patient 16:32:34 [employer] SERVICER Sera Mcdowell MD [facility] Procedures Code Procedure Name Date Entry Date Standard Description CPT-60785 First Vx - Ix admin via ID IM or jet injects without counseling by physician 15:09:59 CDT CPT-88471 Menveo Intramuscular Solution Reconstituted 15:09:59 CDT CPT-42762 Meningococcal Conjugate Vacine (Menactra) 12:25:34 CDT CPT-81860 Abd compl w upright 16:06:21 CDT CPT-PV Prev. Care Visit 12:33:36 [employer] SERVICER
--- OUTSIDE RECORDS SUMMARY | 2018-01-18 03:32 | XMS REPORT | Clinical Summary ---
Author Author Admin, WILBERT [facility] Address Unknown Phone Unavailable Allergies, Adverse [...] hours hours prior to departure SCOPOLAMINE BASE [id number] Active Tamera Mustafa MD PhD Active ZOFRAN ODT 4 MG TBDP 1 pill dissolved by mouth every 4 hours if needed for nausea ONDANSETRON 15568105497 Active Tamera Mustafa MD PhD Active AMITRIPTYLINE HCL 25 MG ORAL TABS 1 pill by mouth nightly, for migraine prevention AMITRIPTYLINE HCL 92095108060 Active Alli Frye MD Active LEVOTHYROXINE SODIUM 100 MCG ORAL TABS 1 tab by mouth daily LEVOTHYROXINE SODIUM 25304523861 Active Tamera Mustafa MD PhD Active SUMATRIPTAN 20 MG/ACT SOLN 1 spray in one nostril at onset of migraine; may repeat in 2 hours if needed for continued migraine SUMATRIPTAN 82875937720 No Longer Active Tamera Mustafa MD PhD Active ZOFRAN ODT 4 MG TBDP 1 po q6hr PRN Nausea ONDANSETRON 00814286366 No Longer Active Jr Morrow MD Active EXCEDRIN MIGRAINE 250-250-65 MG TABS 1 tab po as needed [id number] 38746038206 Active Jr Morrow MD Active ZOMIG 5 MG TABS Take 1 tablet by mouth daily as needed ZOLMITRIPTAN 34091623601 No Longer Active Jr Morrow MD Active BACTRIM DS 800-160 MG TAB 1 tab by mouth twice daily TRIMETHOPRIM-SULFAMETHOXAZOLE 96382820390 No Longer Active Tamera Mustafa MD PhD Active ZITHROMAX Z-ADALGISA 250 MG TABS 2 today, then 1 daily for 4 days 2013 AZITHROMYCIN 48624080983 No Longer Active Tor Gramajo MD Active MINOCYCLINE HCL 50 MG CAP 1 pill by mouth daily for acne MINOCYCLINE HCL 11862684908 No Longer Active Tor Gramajo MD Active AXERT 12.5 MG TABS 1 tablet by mouth at onset of migraine; may repeat x 1 if headache is still present in 2 hours ALMOTRIPTAN MALATE 84810581691 No Longer Active Tamera Mustafa MD PhD Active ELIMITE 5 % CREA Apply from head to toe including scalp and soles of feet. Wash off after 8 hours. PERMETHRIN 16974391355 No Longer Active Tamera Mustafa MD PhD Active AMOXICILLIN 500 MG TABS 2 PO bid x 10 days AMOXICILLIN 44904686781 No Longer Active Tamera Mustafa MD PhD Active MAXALT 5 MG TABS 1 pill by mouth at start of migraine; may repeat x 1 if no improvement in 2 hours RIZATRIPTAN BENZOATE 43715274217 No Longer Active Tamera Mustafa MD PhD Active BACTRIM DS 800-160 MG TAB 1 tab by mouth twice daily TRIMETHOPRIM-SULFAMETHOXAZOLE 65888844349 No Longer Active Alli Frye MD Active TRI-SPRINTEC 0.18/0.215/0.25 MG-35 MCG TABS 1 po qd as directed NORGESTIM-ETH ESTRAD TRIPHASIC 73396879836 Active Gerson EMANUEL Active AXERT 6.25 MG TABS 1 pill by mouth at start of migraine; may repeat x 1 in 1 hr if needed ALMOTRIPTAN MALATE 30092056205 No Longer Active Tamera Mustafa MD PhD Active GENERESS FE 0.8-25 MG-MCG CHEW 1 daily NORETHIN-ETH ESTRADIOL-FE 03478375552 No Longer Active Tamera Mustafa MD PhD Active DOXYCYCLINE HYCLATE 50 MG CAP 1 pill by mouth daily for acne 2012 DOXYCYCLINE HYCLATE 43351187660 No Longer Active Tamera Mustafa MD PhD Active AMOXICILLIN 875 MG TABS 1 TWO TIMES A DAY AMOXICILLIN 41045168006 No Longer Active Sera Mcdowell MD Active AMOXICILLIN 875 MG TABS 1 TWO TIMES A DAY AMOXICILLIN 875 MG TABS 031419 AMOXICILLIN Inactive DOXYCYCLINE HYCLATE 50 MG CAP 1 pill by mouth daily for acne 2012 DOXYCYCLINE HYCLATE 50 MG CAP 326541 DOXYCYCLINE HYCLATE Inactive GENERESS FE 0.8-25 MG-MCG CHEW 1 daily GENERESS FE 0.8-25 MG-MCG CHEW 4838919 NORETHIN-ETH ESTRADIOL-FE Inactive AXERT 6.25 MG TABS 1 pill by mouth at start of migraine; may repeat x 1 in 1 hr if needed AXERT 6.25 MG TABS ALMOTRIPTAN MALATE Inactive MAXALT 5 MG TABS 1 pill by mouth at start of migraine; may repeat x 1 if no improvement in 2 hours MAXALT 5 MG TABS 684303 RIZATRIPTAN BENZOATE Inactive AMOXICILLIN 500 MG TABS 2 PO bid x 10 days AMOXICILLIN 500 MG TABS 791542 AMOXICILLIN Inactive ELIMITE 5 % CREA Apply from head to toe including scalp and soles of feet. Wash off after 8 hours. ELIMITE 5 % CREA 649805 PERMETHRIN Inactive AXERT 12.5 MG TABS 1 tablet by mouth at onset of migraine; may repeat x 1 if headache is still present in 2 hours AXERT 12.5 MG TABS ALMOTRIPTAN MALATE Inactive MINOCYCLINE HCL 50 MG CAP 1 pill by mouth daily for acne MINOCYCLINE HCL 50 MG CAP 407402 MINOCYCLINE HCL Inactive ZOMIG 5 MG TABS Take 1 tablet by mouth daily as needed ZOMIG 5 MG TABS 986739 ZOLMITRIPTAN Inactive ZOFRAN ODT 4 MG TBDP 1 po q6hr PRN Nausea ZOFRAN ODT 4 MG TBDP 531541 ONDANSETRON Inactive SUMATRIPTAN 20 MG/ACT SOLN 1 spray in one nostril at onset of migraine; may repeat in 2 hours if needed for continued migraine SUMATRIPTAN 20 MG/ACT SOLN 947980 SUMATRIPTAN Inactive BACTRIM DS 800-160 MG TAB 1 tab by mouth twice daily BACTRIM DS 800-160 MG TAB TRIMETHOPRIM-SULFAMETHOXAZOLE Inactive ZITHROMAX Z-ADALGISA 250 MG TABS 2 today, then 1 daily for 4 days 2013 ZITHROMAX Z-ADALGISA 250 MG TABS 4799243 AZITHROMYCIN Inactive BACTRIM DS 800-160 MG TAB 1 tab by mouth twice daily BACTRIM DS 800-160 MG TAB TRIMETHOPRIM-SULFAMETHOXAZOLE Inactive Advance Directives Directive Description Start Date CONSENT: MEDICATION HISTORY CONSENT FOR MINOR CARE Immunizations Vaccine Administration Date Value Standard Description Adacel (Tetanus, reduced Diphtheria, and acellular Pertussis Immunization) Adacel [[id number]] tetanus toxoid, reduced diphtheria toxoid, and acellular [...] Range Description Chart Maintenance: labs entered to [facility] - Chemistry thyroxine, serum, free 1.25 ng/dL thyroid stimulating hormone, serum 0.29 u[iU]/mL Chart Maintenance: Outside labs entered on [facility] - Chemistry prostate specific antigen 3.70 ng/mL Lab Report: [place] W/DIFF, Comp. [place] [facility] [place] sodium, serum 134 mmol/L 050-391 0209/09/10 potassium, serum 4.4 mmol/L 3.5-5.2 chloride, serum [...] Lab Report: CBC W/DIFF, Comp. [place] [facility] [place] leukocyte count, blood [...] Negative bilirubin, urine Negative Negative urine color Tift Colorless;Lightyellow;Straw;Yellow appearance, urine SlCloudy Clear specific gravity, urine >=1.030 1.000-1.030 pH, urine, semiquantitative 6.0 5.0-8.5 Encounters Code Encounter Date Provider Facility CPT-24037 Level 3 Est. Patient 17:25:12 CDT Tamera Mustaaf MD PhD [facility] CPT-69649 Level 3 Est. Patient 15:47:52 CDT Jr Morrow MD [facility] CPT-96146 Level 3 Est. Patient 17:07:09 OPERATIONS TECH Tor Gramajo MD [facility] CPT-77272 Level 3 Est. Patient 11:34:16 CDT Gerson EMANUEL [facility] CPT-62755 Level 3 Est. Patient 16:33:58 CDT Edyta Otto APRN [facility] CPT-02781 Level 3 Est. Patient 15:17:40 OPERATIONS TECH Sera Mcdowell MD [facility] CPT-39189 Level 3 Est. Patient 16:32:34 OPERATIONS TECH Sera Mcdowell MD [facility] Procedures Code Procedure Name Date Entry Date Standard Description CPT-17012 Abd compl w upright 16:06:21 CDT CPT-PV Prev. Care Visit 12:33:36 OPERATIONS TECH
--- OUTSIDE RECORDS SUMMARY | 2018-01-18 03:33 | XMS REPORT | Clinical Summary ---
Author Author Admin, WILBERT Organization [facility] Address Unknown Phone Unavailable Allergies, Adverse [...] 1 tab po BID prn anxiety ALPRAZOLAM 88907004066 Active Alli Frye MD Active QUETIAPINE FUMARATE 25 MG ORAL TABLET take 1 tab po qhs for anxiety QUETIAPINE FUMARATE 57254625115 Active Alli Frye MD Active METOPROLOL TARTRATE 25 MG ORAL TABLET take 1 tab po daily METOPROLOL TARTRATE 07339195458 Active Alli Frye MD Active HYDROXYZINE HCL 50 MG ORAL TABLET 1 tab po BID as needed for anxiety HYDROXYZINE HCL 28115876929 No Longer Active Alli Frye MD Active ZOLOFT 100 MG ORAL TABLET take 2 tabs po qday for mood and headaches. SERTRALINE HCL 48107318140 Active Juliane Melendez LPN Active BUSPIRONE HCL 10 MG ORAL TABLET 1 TAB PO PRN BUSPIRONE HCL 56351572438 No Longer Active Juliane Melendez LPN Active ALPRAZOLAM 0.5 MG ORAL TABLET take 1 tab po qday prn anxiety 2016 ALPRAZOLAM 42962260806 No Longer Active Tatyana Lam Active LORAZEPAM 0.5 MG ORAL TABLET take 1 tab po qday prn anxiety attacks LORAZEPAM 47141841561 No Longer Active Alli Frye MD Active RANITIDINE HCL 300 MG ORAL CAPSULE 1 tablet by mouth daily prn acid reflux RANITIDINE HCL 61586854360 Active Alli Frye MD Active AMITRIPTYLINE HCL 25 MG ORAL TABLET 1 tab by mouth daily at bedtime AMITRIPTYLINE HCL 73695875555 No Longer Active Alli Frye MD Active ZOLOFT 50 MG ORAL TABLET 1 tablet by mouth daily for mood and headache 07/10 SERTRALINE HCL 72541451626 No Longer Active Alli Frye MD Active AMITRIPTYLINE HCL 50 MG ORAL TABLET 1 po qhs for migraine AMITRIPTYLINE HCL 86714823605 No Longer Active Alli Frye MD Active LEVOTHYROXINE SODIUM 112 MCG ORAL TABLET 1 pill by mouth daily for thyroid LEVOTHYROXINE SODIUM 40132906859 Active Alli Frye MD Active AMITRIPTYLINE HCL 50 MG ORAL TABLET 1 pill by mouth nightly, for migraine prevention AMITRIPTYLINE HCL 83083721103 No Longer Active Alli Frye MD Active MAGNESIUM OXIDE 400 MG ORAL CAPSULE 1 po with migraine MAGNESIUM OXIDE 98546021015 No Longer Active Alli Frye MD Active AMITRIPTYLINE HCL 75 MG ORAL TABLET take 1 tab po qhs for migraines. AMITRIPTYLINE HCL 76127799530 No Longer Active Alli Frye MD Active MULTIVITAMIN GUMMIES ADULT ORAL TABLET CHEWABLE MULTIPLE VITAMINS-MINERALS 62441419049 Active Alli Frye MD Active TRANSDERM-SCOP (1.5 MG) 1 MG/3DAYS TRANSDERMAL PATCH 72 HOUR 1 patch every 3 days, as needed for motion sickness, start at least 4 hours hours prior to departure SCOPOLAMINE BASE 46340962224 No Longer Active Alli Frye MD Active LEVOTHYROXINE SODIUM 125 MCG ORAL TABLET 1 pill by mouth daily, for thyroid LEVOTHYROXINE SODIUM 61215824282 No Longer Active Alli Frye MD Active ZOFRAN ODT 4 MG ORAL TABLET DISINTEGRATING 1 pill dissolved by mouth every 4 hours if needed for nausea ONDANSETRON 02833705451 Active Tamera Mustafa MD PhD Active SUMATRIPTAN 20 MG/ACT NASAL SOLUTION 1 spray in one nostril at onset of migraine; may repeat in 2 hours if needed for continued migraine SUMATRIPTAN 64351872506 No Longer Active Tamera Mustafa MD PhD Active ZOFRAN ODT 4 MG ORAL TABLET DISINTEGRATING 1 po q6hr PRN Nausea ONDANSETRON 92200361491 No Longer Active Jr Morrow MD Active EXCEDRIN MIGRAINE 250-250-65 MG ORAL TABLET 1 tab po as needed [id number] 68984596897 Active Jr Morrow MD Active ZOMIG 5 MG ORAL TABLET Take 1 tablet by mouth daily as needed ZOLMITRIPTAN 02047196449 No Longer Active Jr Morrow MD Active BACTRIM DS 800-160 MG ORAL TABLET 1 tab by mouth twice daily 2013 TRIMETHOPRIM-SULFAMETHOXAZOLE 52106332324 No Longer Active Tamera Mustafa MD PhD Active ZITHROMAX Z-ADALGISA 250 MG ORAL TABLET 2 today, then 1 daily for 4 days AZITHROMYCIN 03443280263 No Longer Active Tor Gramajo MD Active MINOCYCLINE HCL 50 MG ORAL CAPSULE 1 pill by mouth daily for acne MINOCYCLINE HCL 22903242098 No Longer Active Tor Gramajo MD Active AXERT 12.5 MG ORAL TABLET 1 tablet by mouth at onset of migraine; may repeat x 1 if headache is still present in 2 hours ALMOTRIPTAN MALATE 02816601670 No Longer Active Tamera Mustafa MD PhD Active ELIMITE 5 % EXTERNAL CREAM Apply from head to toe including scalp and soles of feet. Wash off after 8 hours. PERMETHRIN 72458242521 No Longer Active Tamera Mustafa MD PhD Active AMOXICILLIN 500 MG ORAL TABLET 2 PO bid x 10 days AMOXICILLIN 17638567905 No Longer Active Tamera Mustafa MD PhD Active MAXALT 5 MG ORAL TABLET 1 pill by mouth at start of migraine; may repeat x 1 if no improvement in 2 hours RIZATRIPTAN BENZOATE 35204278280 No Longer Active Tamera Mustafa MD PhD Active BACTRIM DS 800-160 MG ORAL TABLET 1 tab by mouth twice daily 2012 TRIMETHOPRIM-SULFAMETHOXAZOLE 71607566218 No Longer Active Alli Frye MD Active TRI-SPRINTEC 0.18/0.215/0.25 MG-35 MCG ORAL TABLET 1 po qd as directed 06/28 NORGESTIM-ETH ESTRAD TRIPHASIC 33561861936 Active Alli Frye MD Active AXERT 6.25 MG ORAL TABLET 1 pill by mouth at start of migraine; may repeat x 1 in 1 hr if needed ALMOTRIPTAN MALATE 62872397197 No Longer Active Tamera Mustafa MD PhD Active GENERESS FE 0.8-25 MG-MCG ORAL TABLET CHEWABLE 1 daily NORETHIN-ETH ESTRADIOL-FE 97337179526 No Longer Active Tamera Mustafa MD PhD Active DOXYCYCLINE HYCLATE 50 MG ORAL CAPSULE 1 pill by mouth daily for acne DOXYCYCLINE HYCLATE 56763815366 No Longer Active Tamera Mustafa MD PhD Active AMOXICILLIN 875 MG ORAL TABLET 1 TWO TIMES A DAY AMOXICILLIN 24118493218 No Longer Active Sera Mcdowell MD Active AMOXICILLIN 875 MG ORAL TABLET 1 TWO TIMES A DAY AMOXICILLIN 875 MG ORAL TABLET 115227 AMOXICILLIN Inactive DOXYCYCLINE HYCLATE 50 MG ORAL CAPSULE 1 pill by mouth daily for acne DOXYCYCLINE HYCLATE 50 MG ORAL CAPSULE 7993709 DOXYCYCLINE HYCLATE Inactive GENERESS FE 0.8-25 MG-MCG ORAL TABLET CHEWABLE 1 daily GENERESS FE 0.8-25 MG-MCG ORAL TABLET CHEWABLE 3083368 NORETHIN-ETH ESTRADIOL-FE Inactive AXERT 6.25 MG ORAL TABLET 1 pill by mouth at start of migraine; may repeat x 1 in 1 hr if needed AXERT 6.25 MG ORAL TABLET 214759 ALMOTRIPTAN MALATE Inactive MAXALT 5 MG ORAL TABLET 1 pill by mouth at start of migraine; may repeat x 1 if no improvement in 2 hours MAXALT 5 MG ORAL TABLET 479290 RIZATRIPTAN BENZOATE Inactive AMOXICILLIN 500 MG ORAL TABLET 2 PO bid x 10 days AMOXICILLIN 500 MG ORAL TABLET 238440 AMOXICILLIN Inactive ELIMITE 5 % EXTERNAL CREAM Apply from head to toe including scalp and soles of feet. Wash off after 8 hours. ELIMITE 5 % EXTERNAL CREAM 361901 PERMETHRIN Inactive AXERT 12.5 MG ORAL TABLET 1 tablet by mouth at onset of migraine; may repeat x 1 if headache is still present in 2 hours AXERT 12.5 MG ORAL TABLET 195945 ALMOTRIPTAN MALATE Inactive MINOCYCLINE HCL 50 MG ORAL CAPSULE 1 pill by mouth daily for acne MINOCYCLINE HCL 50 MG ORAL CAPSULE 185135 MINOCYCLINE HCL Inactive ZOMIG 5 MG ORAL TABLET Take 1 tablet by mouth daily as needed ZOMIG 5 MG ORAL TABLET 465792 ZOLMITRIPTAN Inactive ZOFRAN ODT 4 MG ORAL TABLET DISINTEGRATING 1 po q6hr PRN Nausea ZOFRAN ODT 4 MG ORAL TABLET DISINTEGRATING 739741 ONDANSETRON Inactive SUMATRIPTAN 20 MG/ACT NASAL SOLUTION 1 spray in one nostril at onset of migraine; may repeat in 2 hours if needed for continued migraine SUMATRIPTAN 20 MG/ACT NASAL SOLUTION 269215 SUMATRIPTAN Inactive LEVOTHYROXINE SODIUM 125 MCG ORAL TABLET 1 pill by mouth daily, for thyroid LEVOTHYROXINE SODIUM 125 MCG ORAL TABLET 877629 LEVOTHYROXINE SODIUM Inactive TRANSDERM-SCOP (1.5 MG) 1 MG/3DAYS TRANSDERMAL PATCH 72 HOUR 1 patch every 3 days, as needed for motion sickness, start at least 4 hours hours prior to departure TRANSDERM-SCOP (1.5 MG) 1 MG/3DAYS TRANSDERMAL PATCH 72 HOUR SCOPOLAMINE BASE Inactive AMITRIPTYLINE HCL 75 MG ORAL TABLET take 1 tab po qhs for migraines. AMITRIPTYLINE HCL 75 MG ORAL TABLET 646175 AMITRIPTYLINE HCL Inactive MAGNESIUM OXIDE 400 MG ORAL CAPSULE 1 po with migraine MAGNESIUM OXIDE 400 MG ORAL CAPSULE 454824 MAGNESIUM OXIDE Inactive AMITRIPTYLINE HCL 50 MG ORAL TABLET 1 pill by mouth nightly, for migraine prevention AMITRIPTYLINE HCL 50 MG ORAL TABLET 050592 AMITRIPTYLINE HCL Inactive AMITRIPTYLINE HCL 50 MG ORAL TABLET 1 po qhs for migraine AMITRIPTYLINE HCL 50 MG ORAL TABLET 361977 AMITRIPTYLINE HCL Inactive ZOLOFT 50 MG ORAL TABLET 1 tablet by mouth daily for mood and headache 07/10 ZOLOFT 50 MG ORAL TABLET 136030 SERTRALINE HCL Inactive AMITRIPTYLINE HCL 25 MG ORAL TABLET 1 tab by mouth daily at bedtime AMITRIPTYLINE HCL 25 MG ORAL TABLET 107514 AMITRIPTYLINE HCL Inactive LORAZEPAM 0.5 MG ORAL TABLET take 1 tab po qday prn anxiety attacks LORAZEPAM 0.5 MG ORAL TABLET 136561 LORAZEPAM Inactive ALPRAZOLAM 0.5 MG ORAL TABLET take 1 tab po qday prn anxiety 2016 ALPRAZOLAM 0.5 MG ORAL TABLET 515800 ALPRAZOLAM Inactive BUSPIRONE HCL 10 MG ORAL TABLET 1 TAB PO PRN BUSPIRONE HCL 10 MG ORAL TABLET 532156 BUSPIRONE HCL Inactive HYDROXYZINE HCL 50 MG ORAL TABLET 1 tab po BID as needed for anxiety HYDROXYZINE HCL 50 MG ORAL TABLET 282537 HYDROXYZINE HCL Inactive BACTRIM DS 800-160 MG ORAL TABLET 1 tab by mouth twice daily 2012 BACTRIM DS 800-160 MG ORAL TABLET 307283 TRIMETHOPRIM- SULFAMETHOXAZOLE Inactive ZITHROMAX Z-ADALGISA 250 MG ORAL TABLET 2 today, then 1 daily for 4 days ZITHROMAX Z-ADALGISA 250 MG ORAL TABLET 248405 AZITHROMYCIN Inactive BACTRIM DS 800-160 MG ORAL TABLET 1 tab by mouth twice daily 2013 BACTRIM DS 800-160 MG ORAL TABLET 172235 TRIMETHOPRIM- SULFAMETHOXAZOLE Inactive Advance Directives Directive Description Start Date CONSENT: MEDICATION HISTORY CONSENT FOR MINOR CARE Immunizations Vaccine Administration Date Value Standard Description Adacel (Tetanus, reduced Diphtheria, and acellular Pertussis Immunization) Adacel [[id number]] tetanus toxoid, reduced diphtheria toxoid, and acellular [...] 0.36-3.74 Encounters Code Encounter Date Provider Facility CPT-66838 Level 4 Est. Patient 15:50:37 [employer] Alli Frye MD [facility] CPT-86331 Level 4 Est. Patient 23:05:57 CDT Alli Frye MD [facility] CPT-34113 Level 4 Est. Patient 12:25:34 CDT Alli Frye MD [facility] CPT-21262 Level 4 Est. Patient 13:40:53 CDT Alli Frye MD [facility] CPT-99264 Level 4 Est. Patient 13:18:45 [employer] Alli Frye MD [facility] CPT-93529 Level 4 Est. Patient 11:32:52 [employer] Alli Frye MD [facility] CPT-43125 Level 4 Est. Patient 14:47:16 CDT Alli Frye MD [facility] CPT-62617 Level 3 Est. Patient 17:25:12 CDT Tamera Mustafa MD PhD [facility] CPT-21378 Level 3 Est. Patient 15:47:52 CDT Jr Morrow MD [facility] CPT-02919 Level 3 Est. Patient 17:07:09 [employer] Tor Gramajo MD [facility] CPT-21228 Level 3 Est. Patient 11:34:16 CDT Gerson EMANUEL [facility] CPT-88984 Level 3 Est. Patient 16:33:58 CDT Edyta Otto APRN [facility] CPT-79309 Level 3 Est. Patient 15:17:40 [employer] Sera Mcdowell MD [facility] CPT-86821 Level 3 Est. Patient 16:32:34 [employer] Sera Mcdowell MD [facility] Procedures Code Procedure Name Date Entry Date Standard Description CPT-09009 First Vx - Ix admin via ID IM or jet injects without counseling by physician 15:09:59 CDT CPT-68435 Menveo Intramuscular Solution Reconstituted 15:09:59 CDT CPT-27334 Meningococcal Conjugate Vacine (Menactra) 12:25:34 CDT CPT-73828 Abd compl w upright 16:06:21 CDT CPT-PV Prev. Care Visit 12:33:36 [employer]
--- OUTSIDE RECORDS SUMMARY | 2018-01-18 03:34 | XMS REPORT | Clinical Summary ---
Author Author Admin, CRISTOPHERE Organization [facility] Address Unknown Phone Unavailable Allergies, Adverse Reactions, [...] Generic Name ND Status Provider Patient Instruction LORAZEPAM 0.5 MG TAB take 1 tab po qday prn anxiety attacks LORAZEPAM [id number] Active Alli Frye MD Active ZOLOFT 50 MG TAB 1 tablet by mouth daily for mood and headache SERTRALINE HCL 42691522068 Active Alli Frye MD Active AMITRIPTYLINE HCL 50 MG TAB 1 po qhs for migraine AMITRIPTYLINE HCL 07302147192 Active Alli Frye MD Active AMITRIPTYLINE HCL 75 MG TAB take 1 tab po qhs for migraines. AMITRIPTYLINE HCL 67263227283 Active Alli Frye MD Active MAGNESIUM OXIDE 400 MG CAPS 1 po with migraine MAGNESIUM OXIDE 64387881198 Active Alli Frye MD Active MULTIVITAMIN GUMMIES ADULT CHEW MULTIPLE VITAMINS-MINERALS 81764881432 Active Alli Frye MD Active TRANSDERM-SCOP 1.5 MG TRANS PT72 1 patch every 3 days, as needed for motion sickness, start at least 4 hours hours prior to departure SCOPOLAMINE BASE 57944461241 No Longer Active Alli Frye MD Active LEVOTHYROXINE SODIUM 100 MCG TABS 1 pill by mouth daily for thyroid LEVOTHYROXINE SODIUM 24707924047 Active Alli Frye MD Active LEVOTHYROXINE SODIUM 125 MCG ORAL TABS 1 pill by mouth daily, for thyroid LEVOTHYROXINE SODIUM 02632344976 No Longer Active Alli Frye MD Active AMITRIPTYLINE HCL 50 MG ORAL TABS 1 pill by mouth nightly, for migraine prevention AMITRIPTYLINE HCL 18776600059 Active Tamera Mustafa MD PhD Active ZOFRAN ODT 4 MG TBDP 1 pill dissolved by mouth every 4 hours if needed for nausea ONDANSETRON 54144889046 Active Tamera Mustafa MD PhD Active SUMATRIPTAN 20 MG/ACT SOLN 1 spray in one nostril at onset of migraine; may repeat in 2 hours if needed for continued migraine SUMATRIPTAN 34108163407 No Longer Active Tamera Mustafa MD PhD Active ZOFRAN ODT 4 MG TBDP 1 po q6hr PRN Nausea ONDANSETRON 15167466155 No Longer Active Jr Morrow MD Active EXCEDRIN MIGRAINE 250-250-65 MG TABS 1 tab po as needed [id number] 69534312287 Active Jr Morrow MD Active ZOMIG 5 MG TABS Take 1 tablet by mouth daily as needed ZOLMITRIPTAN 14953703450 No Longer Active Jr Morrow MD Active BACTRIM DS 800-160 MG TAB 1 tab by mouth twice daily TRIMETHOPRIM-SULFAMETHOXAZOLE 10691582858 No Longer Active Tamera Mustafa MD PhD Active ZITHROMAX Z-ADALGISA 250 MG TABS 2 today, then 1 daily for 4 days 2013 AZITHROMYCIN 96174672121 No Longer Active Tor Gramajo MD Active MINOCYCLINE HCL 50 MG CAP 1 pill by mouth daily for acne MINOCYCLINE HCL 78148828711 No Longer Active Tor Gramajo MD Active AXERT 12.5 MG TABS 1 tablet by mouth at onset of migraine; may repeat x 1 if headache is still present in 2 hours ALMOTRIPTAN MALATE 62147631581 No Longer Active Tamera Mustafa MD PhD Active ELIMITE 5 % CREA Apply from head to toe including scalp and soles of feet. Wash off after 8 hours. PERMETHRIN 13120879010 No Longer Active Tamera Mustafa MD PhD Active AMOXICILLIN 500 MG TABS 2 PO bid x 10 days AMOXICILLIN 19679364403 No Longer Active Tamera Mustafa MD PhD Active MAXALT 5 MG TABS 1 pill by mouth at start of migraine; may repeat x 1 if no improvement in 2 hours RIZATRIPTAN BENZOATE 05158426523 No Longer Active Tamera Mustafa MD PhD Active BACTRIM DS 800-160 MG TAB 1 tab by mouth twice daily TRIMETHOPRIM-SULFAMETHOXAZOLE 73974972018 No Longer Active Alli Frye MD Active TRI-SPRINTEC 0.18/0.215/0.25 MG-35 MCG TABS 1 po qd as directed NORGESTIM-ETH ESTRAD TRIPHASIC 65989514929 Active Alli Frye MD Active AXERT 6.25 MG TABS 1 pill by mouth at start of migraine; may repeat x 1 in 1 hr if needed ALMOTRIPTAN MALATE 43367821616 No Longer Active Tamera Mustafa MD PhD Active GENERESS FE 0.8-25 MG-MCG CHEW 1 daily NORETHIN-ETH ESTRADIOL-FE 85163570609 No Longer Active Tamera Mustafa MD PhD Active DOXYCYCLINE HYCLATE 50 MG CAP 1 pill by mouth daily for acne 2012 DOXYCYCLINE HYCLATE 08216968565 No Longer Active Tamera Mustafa MD PhD Active AMOXICILLIN 875 MG TABS 1 TWO TIMES A DAY AMOXICILLIN 11568092823 No Longer Active Sera Mcdowell MD Active AMOXICILLIN 875 MG TABS 1 TWO TIMES A DAY AMOXICILLIN 875 MG TABS 534431 AMOXICILLIN Inactive DOXYCYCLINE HYCLATE 50 MG CAP 1 pill by mouth daily for acne 2012 DOXYCYCLINE HYCLATE 50 MG CAP 3773352 DOXYCYCLINE HYCLATE Inactive GENERESS FE 0.8-25 MG-MCG CHEW 1 daily GENERESS FE 0.8-25 MG-MCG CHEW 0244557 NORETHIN-ETH ESTRADIOL-FE Inactive AXERT 6.25 MG TABS 1 pill by mouth at start of migraine; may repeat x 1 in 1 hr if needed AXERT 6.25 MG TABS 729119 ALMOTRIPTAN MALATE Inactive MAXALT 5 MG TABS 1 pill by mouth at start of migraine; may repeat x 1 if no improvement in 2 hours MAXALT 5 MG TABS 869110 RIZATRIPTAN BENZOATE Inactive AMOXICILLIN 500 MG TABS 2 PO bid x 10 days AMOXICILLIN 500 MG TABS 482535 AMOXICILLIN Inactive ELIMITE 5 % CREA Apply from head to toe including scalp and soles of feet. Wash off after 8 hours. ELIMITE 5 % CREA 403340 PERMETHRIN Inactive AXERT 12.5 MG TABS 1 tablet by mouth at onset of migraine; may repeat x 1 if headache is still present in 2 hours AXERT 12.5 MG TABS 429828 ALMOTRIPTAN MALATE Inactive MINOCYCLINE HCL 50 MG CAP 1 pill by mouth daily for acne MINOCYCLINE HCL 50 MG CAP 178567 MINOCYCLINE HCL Inactive ZOMIG 5 MG TABS Take 1 tablet by mouth daily as needed ZOMIG 5 MG TABS 204977 ZOLMITRIPTAN Inactive ZOFRAN ODT 4 MG TBDP 1 po q6hr PRN Nausea ZOFRAN ODT 4 MG TBDP 020008 ONDANSETRON Inactive SUMATRIPTAN 20 MG/ACT SOLN 1 spray in one nostril at onset of migraine; may repeat in 2 hours if needed for continued migraine SUMATRIPTAN 20 MG/ACT SOLN 328125 SUMATRIPTAN Inactive LEVOTHYROXINE SODIUM 125 MCG ORAL TABS 1 pill by mouth daily, for thyroid LEVOTHYROXINE SODIUM 125 MCG ORAL TABS 313845 LEVOTHYROXINE SODIUM Inactive TRANSDERM-SCOP 1.5 MG TRANS PT72 1 patch every 3 days, as needed for motion sickness, start at least 4 hours hours prior to departure TRANSDERM-SCOP 1.5 MG TRANS PT72 SCOPOLAMINE BASE Inactive BACTRIM DS 800-160 MG TAB 1 tab by mouth twice daily BACTRIM DS 800-160 MG TAB 081137 TRIMETHOPRIM-SULFAMETHOXAZOLE Inactive ZITHROMAX Z-ADALGISA 250 MG TABS 2 today, then 1 daily for 4 days 2013 ZITHROMAX Z-ADALGISA 250 MG TABS 0863212 AZITHROMYCIN Inactive BACTRIM DS 800-160 MG TAB 1 tab by mouth twice daily BACTRIM DS 800-160 MG TAB 465004 TRIMETHOPRIM-SULFAMETHOXAZOLE Inactive Advance Directives Directive Description Start Date CONSENT: MEDICATION HISTORY CONSENT FOR MINOR CARE Immunizations Vaccine Administration Date Value Standard Description Adacel (Tetanus, reduced Diphtheria, and acellular Pertussis Immunization) Adacel [TKR108] tetanus toxoid, reduced diphtheria toxoid, and acellular [...] Range Description blood pressure, diastolic - 8462-4 80 mm[Hg] [...] Measured Encounters Code Encounter Date Provider Facility CPT-11357 Level 4 Est. Patient 13:18:45 [employer] Alli Frye MD [facility] CPT-22244 Level 4 Est. Patient 11:32:52 [employer] Alli Frye MD [facility] CPT-09228 Level 4 Est. Patient 14:47:16 CDT Alli Frye MD [facility] CPT-45707 Level 3 Est. Patient 17:25:12 CDT Tamera Mustafa MD PhD [facility] CPT-59743 Level 3 Est. Patient 15:47:52 CDT Jr Morrow MD [facility] CPT-00105 Level 3 Est. Patient 17:07:09 [employer] Tor Gramajo MD [facility] CPT-53180 Level 3 Est. Patient 11:34:16 CDT Gerson EMANUEL [facility] CPT-42459 Level 3 Est. Patient 16:33:58 CDT Edyta Otto APRN [facility] CPT-86118 Level 3 Est. Patient 15:17:40 [employer] Sera Mcdowell MD [facility] CPT-47138 Level 3 Est. Patient 16:32:34 [employer] Sera Mcdowell MD [facility] Procedures Code Procedure Name Date Entry Date Standard Description CPT-34345 Abd compl w upright 16:06:21 CDT CPT-PV Prev. Care Visit 12:33:36 [employer]
--- OUTSIDE RECORDS SUMMARY | 2018-01-18 03:34 | XMS REPORT | Clinical Summary ---
Author Author Admin, WILBERT Organization [facility] Address Unknown Phone Unavailable Allergies, Adverse Reactions, [...] 1 tab po BID prn anxiety ALPRAZOLAM 22349780130 Active Alli Frye MD Active QUETIAPINE FUMARATE 25 MG ORAL TABLET take 1 tab po qhs for anxiety QUETIAPINE FUMARATE 52503409566 Active Alli Frye MD Active METOPROLOL TARTRATE 25 MG ORAL TABLET take 1 tab po daily METOPROLOL TARTRATE 62738758919 Active Alli Frye MD Active HYDROXYZINE HCL 50 MG ORAL TABLET 1 tab po BID as needed for anxiety HYDROXYZINE HCL 97639914549 No Longer Active Alli Frye MD Active ZOLOFT 100 MG ORAL TABLET take 2 tabs po qday for mood and headaches. SERTRALINE HCL 91028511714 Active Juliane Melendez LPN Active BUSPIRONE HCL 10 MG ORAL TABLET 1 TAB PO PRN BUSPIRONE HCL 23396042798 No Longer Active Juliane Melendez LPN Active ALPRAZOLAM 0.5 MG ORAL TABLET take 1 tab po qday prn anxiety 2016 ALPRAZOLAM 73177824514 No Longer Active Tatyana Lam Active LORAZEPAM 0.5 MG ORAL TABLET take 1 tab po qday prn anxiety attacks LORAZEPAM 81134419675 No Longer Active Alli Frye MD Active RANITIDINE HCL 300 MG ORAL CAPSULE 1 tablet by mouth daily prn acid reflux RANITIDINE HCL 36854959780 Active Alli Frye MD Active AMITRIPTYLINE HCL 25 MG ORAL TABLET 1 tab by mouth daily at bedtime AMITRIPTYLINE HCL 20154918464 No Longer Active Alli Frye MD Active ZOLOFT 50 MG ORAL TABLET 1 tablet by mouth daily for mood and headache 07/10 SERTRALINE HCL 22522734937 No Longer Active Alli Frye MD Active AMITRIPTYLINE HCL 50 MG ORAL TABLET 1 po qhs for migraine AMITRIPTYLINE HCL 58967271161 No Longer Active Alli Frye MD Active LEVOTHYROXINE SODIUM 112 MCG ORAL TABLET 1 pill by mouth daily for thyroid LEVOTHYROXINE SODIUM 67994633974 Active Alli Frye MD Active AMITRIPTYLINE HCL 50 MG ORAL TABLET 1 pill by mouth nightly, for migraine prevention AMITRIPTYLINE HCL 91589525213 No Longer Active Alli Frye MD Active MAGNESIUM OXIDE 400 MG ORAL CAPSULE 1 po with migraine MAGNESIUM OXIDE 23852160337 No Longer Active Alli Frye MD Active AMITRIPTYLINE HCL 75 MG ORAL TABLET take 1 tab po qhs for migraines. AMITRIPTYLINE HCL 95729246770 No Longer Active Alli Frye MD Active MULTIVITAMIN GUMMIES ADULT ORAL TABLET CHEWABLE MULTIPLE VITAMINS-MINERALS 27898885578 Active Alli Frye MD Active TRANSDERM-SCOP (1.5 MG) 1 MG/3DAYS TRANSDERMAL PATCH 72 HOUR 1 patch every 3 days, as needed for motion sickness, start at least 4 hours hours prior to departure SCOPOLAMINE BASE 00976822164 No Longer Active Alli Frye MD Active LEVOTHYROXINE SODIUM 125 MCG ORAL TABLET 1 pill by mouth daily, for thyroid LEVOTHYROXINE SODIUM 73306333980 No Longer Active Alli Frye MD Active ZOFRAN ODT 4 MG ORAL TABLET DISINTEGRATING 1 pill dissolved by mouth every 4 hours if needed for nausea ONDANSETRON 66693444940 Active Tamera Mustafa MD PhD Active SUMATRIPTAN 20 MG/ACT NASAL SOLUTION 1 spray in one nostril at onset of migraine; may repeat in 2 hours if needed for continued migraine SUMATRIPTAN 08570333462 No Longer Active Tamera Mustafa MD PhD Active ZOFRAN ODT 4 MG ORAL TABLET DISINTEGRATING 1 po q6hr PRN Nausea ONDANSETRON 81274298337 No Longer Active Jr Morrow MD Active EXCEDRIN MIGRAINE 250-250-65 MG ORAL TABLET 1 tab po as needed [id number] 36665398792 Active Jr Morrow MD Active ZOMIG 5 MG ORAL TABLET Take 1 tablet by mouth daily as needed ZOLMITRIPTAN 51013806271 No Longer Active Jr Morrow MD Active BACTRIM DS 800-160 MG ORAL TABLET 1 tab by mouth twice daily 2013 TRIMETHOPRIM-SULFAMETHOXAZOLE 86319479117 No Longer Active Tamera Mustafa MD PhD Active ZITHROMAX Z-ADALGISA 250 MG ORAL TABLET 2 today, then 1 daily for 4 days AZITHROMYCIN 31782264334 No Longer Active Tor Gramajo MD Active MINOCYCLINE HCL 50 MG ORAL CAPSULE 1 pill by mouth daily for acne MINOCYCLINE HCL 18281306763 No Longer Active Tor Gramajo MD Active AXERT 12.5 MG ORAL TABLET 1 tablet by mouth at onset of migraine; may repeat x 1 if headache is still present in 2 hours ALMOTRIPTAN MALATE 66050984950 No Longer Active Tamera Mustafa MD PhD Active ELIMITE 5 % EXTERNAL CREAM Apply from head to toe including scalp and soles of feet. Wash off after 8 hours. PERMETHRIN 95497864686 No Longer Active Tamera Mustafa MD PhD Active AMOXICILLIN 500 MG ORAL TABLET 2 PO bid x 10 days AMOXICILLIN 77904297902 No Longer Active Tamera Mustafa MD PhD Active MAXALT 5 MG ORAL TABLET 1 pill by mouth at start of migraine; may repeat x 1 if no improvement in 2 hours RIZATRIPTAN BENZOATE 51228535224 No Longer Active Tamera Mustafa MD PhD Active BACTRIM DS 800-160 MG ORAL TABLET 1 tab by mouth twice daily 2012 TRIMETHOPRIM-SULFAMETHOXAZOLE 18873906383 No Longer Active Alli Frye MD Active TRI-SPRINTEC 0.18/0.215/0.25 MG-35 MCG ORAL TABLET 1 po qd as directed 06/28 NORGESTIM-ETH ESTRAD TRIPHASIC 10894178100 Active Alli Frye MD Active AXERT 6.25 MG ORAL TABLET 1 pill by mouth at start of migraine; may repeat x 1 in 1 hr if needed ALMOTRIPTAN MALATE 09796670118 No Longer Active Tamera Mustafa MD PhD Active GENERESS FE 0.8-25 MG-MCG ORAL TABLET CHEWABLE 1 daily NORETHIN-ETH ESTRADIOL-FE 38401472529 No Longer Active Tamera Mustafa MD PhD Active DOXYCYCLINE HYCLATE 50 MG ORAL CAPSULE 1 pill by mouth daily for acne DOXYCYCLINE HYCLATE 11546556048 No Longer Active Tamera Mustafa MD PhD Active AMOXICILLIN 875 MG ORAL TABLET 1 TWO TIMES A DAY AMOXICILLIN 44331996019 No Longer Active Sera Mcdowell MD Active AMOXICILLIN 875 MG ORAL TABLET 1 TWO TIMES A DAY AMOXICILLIN 875 MG ORAL TABLET 959938 AMOXICILLIN Inactive DOXYCYCLINE HYCLATE 50 MG ORAL CAPSULE 1 pill by mouth daily for acne DOXYCYCLINE HYCLATE 50 MG ORAL CAPSULE 6369774 DOXYCYCLINE HYCLATE Inactive GENERESS FE 0.8-25 MG-MCG ORAL TABLET CHEWABLE 1 daily GENERESS FE 0.8-25 MG-MCG ORAL TABLET CHEWABLE 1874140 NORETHIN-ETH ESTRADIOL-FE Inactive AXERT 6.25 MG ORAL TABLET 1 pill by mouth at start of migraine; may repeat x 1 in 1 hr if needed AXERT 6.25 MG ORAL TABLET 774431 ALMOTRIPTAN MALATE Inactive MAXALT 5 MG ORAL TABLET 1 pill by mouth at start of migraine; may repeat x 1 if no improvement in 2 hours MAXALT 5 MG ORAL TABLET 653663 RIZATRIPTAN BENZOATE Inactive AMOXICILLIN 500 MG ORAL TABLET 2 PO bid x 10 days AMOXICILLIN 500 MG ORAL TABLET 650749 AMOXICILLIN Inactive ELIMITE 5 % EXTERNAL CREAM Apply from head to toe including scalp and soles of feet. Wash off after 8 hours. ELIMITE 5 % EXTERNAL CREAM 179249 PERMETHRIN Inactive AXERT 12.5 MG ORAL TABLET 1 tablet by mouth at onset of migraine; may repeat x 1 if headache is still present in 2 hours AXERT 12.5 MG ORAL TABLET 719567 ALMOTRIPTAN MALATE Inactive MINOCYCLINE HCL 50 MG ORAL CAPSULE 1 pill by mouth daily for acne MINOCYCLINE HCL 50 MG ORAL CAPSULE 231553 MINOCYCLINE HCL Inactive ZOMIG 5 MG ORAL TABLET Take 1 tablet by mouth daily as needed ZOMIG 5 MG ORAL TABLET 566403 ZOLMITRIPTAN Inactive ZOFRAN ODT 4 MG ORAL TABLET DISINTEGRATING 1 po q6hr PRN Nausea ZOFRAN ODT 4 MG ORAL TABLET DISINTEGRATING 116866 ONDANSETRON Inactive SUMATRIPTAN 20 MG/ACT NASAL SOLUTION 1 spray in one nostril at onset of migraine; may repeat in 2 hours if needed for continued migraine SUMATRIPTAN 20 MG/ACT NASAL SOLUTION 651631 SUMATRIPTAN Inactive LEVOTHYROXINE SODIUM 125 MCG ORAL TABLET 1 pill by mouth daily, for thyroid LEVOTHYROXINE SODIUM 125 MCG ORAL TABLET 275487 LEVOTHYROXINE SODIUM Inactive TRANSDERM-SCOP (1.5 MG) 1 MG/3DAYS TRANSDERMAL PATCH 72 HOUR 1 patch every 3 days, as needed for motion sickness, start at least 4 hours hours prior to departure TRANSDERM-SCOP (1.5 MG) 1 MG/3DAYS TRANSDERMAL PATCH 72 HOUR SCOPOLAMINE BASE Inactive AMITRIPTYLINE HCL 75 MG ORAL TABLET take 1 tab po qhs for migraines. AMITRIPTYLINE HCL 75 MG ORAL TABLET 580055 AMITRIPTYLINE HCL Inactive MAGNESIUM OXIDE 400 MG ORAL CAPSULE 1 po with migraine MAGNESIUM OXIDE 400 MG ORAL CAPSULE 196849 MAGNESIUM OXIDE Inactive AMITRIPTYLINE HCL 50 MG ORAL TABLET 1 pill by mouth nightly, for migraine prevention AMITRIPTYLINE HCL 50 MG ORAL TABLET 043467 AMITRIPTYLINE HCL Inactive AMITRIPTYLINE HCL 50 MG ORAL TABLET 1 po qhs for migraine AMITRIPTYLINE HCL 50 MG ORAL TABLET 127841 AMITRIPTYLINE HCL Inactive ZOLOFT 50 MG ORAL TABLET 1 tablet by mouth daily for mood and headache 07/10 ZOLOFT 50 MG ORAL TABLET 265893 SERTRALINE HCL Inactive AMITRIPTYLINE HCL 25 MG ORAL TABLET 1 tab by mouth daily at bedtime AMITRIPTYLINE HCL 25 MG ORAL TABLET 406760 AMITRIPTYLINE HCL Inactive LORAZEPAM 0.5 MG ORAL TABLET take 1 tab po qday prn anxiety attacks LORAZEPAM 0.5 MG ORAL TABLET 207050 LORAZEPAM Inactive ALPRAZOLAM 0.5 MG ORAL TABLET take 1 tab po qday prn anxiety 2016 ALPRAZOLAM 0.5 MG ORAL TABLET 176676 ALPRAZOLAM Inactive BUSPIRONE HCL 10 MG ORAL TABLET 1 TAB PO PRN BUSPIRONE HCL 10 MG ORAL TABLET 807731 BUSPIRONE HCL Inactive HYDROXYZINE HCL 50 MG ORAL TABLET 1 tab po BID as needed for anxiety HYDROXYZINE HCL 50 MG ORAL TABLET 083779 HYDROXYZINE HCL Inactive BACTRIM DS 800-160 MG ORAL TABLET 1 tab by mouth twice daily 2012 BACTRIM DS 800-160 MG ORAL TABLET 690120 TRIMETHOPRIM- SULFAMETHOXAZOLE Inactive ZITHROMAX Z-ADALGISA 250 MG ORAL TABLET 2 today, then 1 daily for 4 days ZITHROMAX Z-ADALGISA 250 MG ORAL TABLET 943872 AZITHROMYCIN Inactive BACTRIM DS 800-160 MG ORAL TABLET 1 tab by mouth twice daily 2013 BACTRIM DS 800-160 MG ORAL TABLET 663921 TRIMETHOPRIM- SULFAMETHOXAZOLE Inactive Advance Directives Directive Description Start Date CONSENT: MEDICATION HISTORY CONSENT FOR MINOR CARE Immunizations Vaccine Administration Date Value Standard Description Adacel (Tetanus, reduced Diphtheria, and acellular Pertussis Immunization) Adacel [[id number]] tetanus toxoid, reduced diphtheria toxoid, and acellular [...] 0.36-3.74 Encounters Code Encounter Date Provider Facility CPT-46873 Level 4 Est. 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 Patient 23:05:57 CDT Alli Frye MD [facility] CPT-77702 Level 4 Est. Patient 12:25:34 CDT Alli Frye MD [facility] CPT-93699 Level 4 Est. Patient 13:40:53 CDT Alli Frye MD [facility] CPT-09324 Level 4 Est. Patient 13:18:45 HABILITATION WORKER Alli Frye MD [facility] CPT-60889 Level 4 Est. Patient 11:32:52 HABILITATION WORKER Alli Frye MD [facility] CPT-70965 Level 4 Est. Patient 14:47:16 CDT Alli Frye MD [facility] CPT-17601 Level 3 Est. Patient 17:25:12 CDT Tamera Mustafa MD PhD [facility] CPT-57071 Level 3 Est. Patient 15:47:52 CDT Jr Morrow MD [facility] CPT-18192 Level 3 Est. Patient 17:07:09 HABILITATION WORKER Tor Gramajo MD [facility] CPT-37401 Level 3 Est. Patient 11:34:16 CDT Gerson EMANUEL [facility] CPT-42609 Level 3 Est. Patient 16:33:58 CDT Edyta Otto APRN [facility] CPT-60872 Level 3 Est. Patient 15:17:40 HABILITATION WORKER Sera Mcdowell MD [facility] CPT-93621 Level 3 Est. Patient 16:32:34 HABILITATION WORKER Sera Mcdowell MD [facility] Procedures Code Procedure Name Date Entry Date Standard Description CPT-65570 First Vx - Ix admin via ID IM or jet injects without counseling by physician 15:09:59 CDT CPT-44484 Menveo Intramuscular Solution Reconstituted 15:09:59 CDT CPT-11690 Meningococcal Conjugate Vacine (Menactra) 12:25:34 CDT CPT-13963 Abd compl w upright 16:06:21 CDT CPT-PV Prev. Care Visit 12:33:36 HABILITATION WORKER
--- OUTSIDE RECORDS SUMMARY | 2018-01-18 03:35 | XMS REPORT | Clinical Summary ---
Author Author Admin, WILBERT Organization [employer] Address Unknown Phone Unavailable Allergies, Adverse Reactions, [...] 1 tab po qday prn anxiety ALPRAZOLAM [id number] Active Alli Frye MD Active LORAZEPAM 0.5 MG TAB take 1 tab po qday prn anxiety attacks 11/04 LORAZEPAM 96520343697 No Longer Active Alli Frye MD Active RANITIDINE HCL 300 MG CAPS 1 tablet by mouth daily prn acid reflux RANITIDINE HCL 77285329071 Active Alli Frye MD Active METOPROLOL TARTRATE 25 MG ORAL TABS take 1 tab po BID METOPROLOL TARTRATE 75240043418 Active Alli Frye MD Active AMITRIPTYLINE HCL 25 MG TAB 1 tab by mouth daily at bedtime 11/04 AMITRIPTYLINE HCL 43407072403 No Longer Active Alli Frye MD Active ZOLOFT 50 MG TAB 1 tablet by mouth daily for mood and headache SERTRALINE HCL 01704962910 No Longer Active Alli Frye MD Active AMITRIPTYLINE HCL 50 MG TAB 1 po qhs for migraine AMITRIPTYLINE HCL 50717229992 No Longer Active Alli Frye MD Active ZOLOFT 100 MG TAB take 1 tab po qday for mood and headaches. SERTRALINE HCL 37415608949 Active Alli Frye MD Active LEVOTHYROXINE SODIUM 112 MCG TABS 1 pill by mouth daily for thyroid LEVOTHYROXINE SODIUM 72173086757 Active Alli Frye MD Active AMITRIPTYLINE HCL 50 MG ORAL TABS 1 pill by mouth nightly, for migraine prevention AMITRIPTYLINE HCL 29877221947 No Longer Active Alli Frye MD Active MAGNESIUM OXIDE 400 MG CAPS 1 po with migraine MAGNESIUM OXIDE 11011353973 No Longer Active Alli Frye MD Active AMITRIPTYLINE HCL 75 MG TAB take 1 tab po qhs for migraines. 2016 AMITRIPTYLINE HCL 91988545495 No Longer Active Alli Frye MD Active MULTIVITAMIN GUMMIES ADULT CHEW MULTIPLE VITAMINS-MINERALS 13845710684 Active Alli Frye MD Active TRANSDERM-SCOP 1.5 MG TRANS PT72 1 patch every 3 days, as needed for motion sickness, start at least 4 hours hours prior to departure SCOPOLAMINE BASE 74331330298 No Longer Active Alli Frye MD Active LEVOTHYROXINE SODIUM 125 MCG ORAL TABS 1 pill by mouth daily, for thyroid LEVOTHYROXINE SODIUM 07915863136 No Longer Active Alli Frye MD Active ZOFRAN ODT 4 MG TBDP 1 pill dissolved by mouth every 4 hours if needed for nausea ONDANSETRON 59184795284 Active Tamera Mustafa MD PhD Active SUMATRIPTAN 20 MG/ACT SOLN 1 spray in one nostril at onset of migraine; may repeat in 2 hours if needed for continued migraine SUMATRIPTAN 12646510652 No Longer Active Tamera Mustafa MD PhD Active ZOFRAN ODT 4 MG TBDP 1 po q6hr PRN Nausea ONDANSETRON 46220809138 No Longer Active Jr Morrow MD Active EXCEDRIN MIGRAINE 250-250-65 MG TABS 1 tab po as needed [id number] 00245134161 Active Jr Morrow MD Active ZOMIG 5 MG TABS Take 1 tablet by mouth daily as needed ZOLMITRIPTAN 41636223431 No Longer Active Jr Morrow MD Active BACTRIM DS 800-160 MG TAB 1 tab by mouth twice daily TRIMETHOPRIM-SULFAMETHOXAZOLE 88106383039 No Longer Active Tamera Mustafa MD PhD Active ZITHROMAX Z-ADALGISA 250 MG TABS 2 today, then 1 daily for 4 days 2013 AZITHROMYCIN 60414963480 No Longer Active Tor Gramajo MD Active MINOCYCLINE HCL 50 MG CAP 1 pill by mouth daily for acne MINOCYCLINE HCL 64057384473 No Longer Active Tor Gramajo MD Active AXERT 12.5 MG TABS 1 tablet by mouth at onset of migraine; may repeat x 1 if headache is still present in 2 hours ALMOTRIPTAN MALATE 08146879397 No Longer Active Tamera Mustafa MD PhD Active ELIMITE 5 % CREA Apply from head to toe including scalp and soles of feet. Wash off after 8 hours. PERMETHRIN 73382767340 No Longer Active Tamera Mustafa MD PhD Active AMOXICILLIN 500 MG TABS 2 PO bid x 10 days AMOXICILLIN 75394091287 No Longer Active Tamera Mustafa MD PhD Active MAXALT 5 MG TABS 1 pill by mouth at start of migraine; may repeat x 1 if no improvement in 2 hours RIZATRIPTAN BENZOATE 74612703791 No Longer Active Tamera Mustafa MD PhD Active BACTRIM DS 800-160 MG TAB 1 tab by mouth twice daily TRIMETHOPRIM-SULFAMETHOXAZOLE 15815472719 No Longer Active Alli Frye MD Active TRI-SPRINTEC 0.18/0.215/0.25 MG-35 MCG TABS 1 po qd as directed NORGESTIM-ETH ESTRAD TRIPHASIC 80975377748 Active Alli Frye MD Active AXERT 6.25 MG TABS 1 pill by mouth at start of migraine; may repeat x 1 in 1 hr if needed ALMOTRIPTAN MALATE 11229852782 No Longer Active Tamera Mustafa MD PhD Active GENERESS FE 0.8-25 MG-MCG CHEW 1 daily NORETHIN-ETH ESTRADIOL-FE 34359044010 No Longer Active Tamera Mustafa MD PhD Active DOXYCYCLINE HYCLATE 50 MG CAP 1 pill by mouth daily for acne 2012 DOXYCYCLINE HYCLATE 95586814753 No Longer Active Tamera Mustafa MD PhD Active AMOXICILLIN 875 MG TABS 1 TWO TIMES A DAY AMOXICILLIN 75169440953 No Longer Active Sera Mcdowell MD Active AMOXICILLIN 875 MG TABS 1 TWO TIMES A DAY AMOXICILLIN 875 MG TABS 531838 AMOXICILLIN Inactive DOXYCYCLINE HYCLATE 50 MG CAP 1 pill by mouth daily for acne 2012 DOXYCYCLINE HYCLATE 50 MG CAP 6341076 DOXYCYCLINE HYCLATE Inactive GENERESS FE 0.8-25 MG-MCG CHEW 1 daily GENERESS FE 0.8-25 MG-MCG CHEW 3771353 NORETHIN-ETH ESTRADIOL-FE Inactive AXERT 6.25 MG TABS 1 pill by mouth at start of migraine; may repeat x 1 in 1 hr if needed AXERT 6.25 MG TABS 372798 ALMOTRIPTAN MALATE Inactive MAXALT 5 MG TABS 1 pill by mouth at start of migraine; may repeat x 1 if no improvement in 2 hours MAXALT 5 MG TABS 676881 RIZATRIPTAN BENZOATE Inactive AMOXICILLIN 500 MG TABS 2 PO bid x 10 days AMOXICILLIN 500 MG TABS 445266 AMOXICILLIN Inactive ELIMITE 5 % CREA Apply from head to toe including scalp and soles of feet. Wash off after 8 hours. ELIMITE 5 % CREA 319993 PERMETHRIN Inactive AXERT 12.5 MG TABS 1 tablet by mouth at onset of migraine; may repeat x 1 if headache is still present in 2 hours AXERT 12.5 MG TABS 457693 ALMOTRIPTAN MALATE Inactive MINOCYCLINE HCL 50 MG CAP 1 pill by mouth daily for acne MINOCYCLINE HCL 50 MG CAP 960974 MINOCYCLINE HCL Inactive ZOMIG 5 MG TABS Take 1 tablet by mouth daily as needed ZOMIG 5 MG TABS 242118 ZOLMITRIPTAN Inactive ZOFRAN ODT 4 MG TBDP 1 po q6hr PRN Nausea ZOFRAN ODT 4 MG TBDP 359828 ONDANSETRON Inactive SUMATRIPTAN 20 MG/ACT SOLN 1 spray in one nostril at onset of migraine; may repeat in 2 hours if needed for continued migraine SUMATRIPTAN 20 MG/ACT SOLN 285467 SUMATRIPTAN Inactive LEVOTHYROXINE SODIUM 125 MCG ORAL TABS 1 pill by mouth daily, for thyroid LEVOTHYROXINE SODIUM 125 MCG ORAL TABS 788395 LEVOTHYROXINE SODIUM Inactive TRANSDERM-SCOP 1.5 MG TRANS PT72 1 patch every 3 days, as needed for motion sickness, start at least 4 hours hours prior to departure TRANSDERM-SCOP 1.5 MG TRANS PT72 SCOPOLAMINE BASE Inactive AMITRIPTYLINE HCL 75 MG TAB take 1 tab po qhs for migraines. 2016 AMITRIPTYLINE HCL 75 MG TAB 835604 AMITRIPTYLINE HCL Inactive MAGNESIUM OXIDE 400 MG CAPS 1 po with migraine MAGNESIUM OXIDE 400 MG CAPS 678230 MAGNESIUM OXIDE Inactive AMITRIPTYLINE HCL 50 MG ORAL TABS 1 pill by mouth nightly, for migraine prevention AMITRIPTYLINE HCL 50 MG ORAL TABS 674240 AMITRIPTYLINE HCL Inactive AMITRIPTYLINE HCL 50 MG TAB 1 po qhs for migraine AMITRIPTYLINE HCL 50 MG TAB 206533 AMITRIPTYLINE HCL Inactive ZOLOFT 50 MG TAB 1 tablet by mouth daily for mood and headache ZOLOFT 50 MG TAB 277353 SERTRALINE HCL Inactive AMITRIPTYLINE HCL 25 MG TAB 1 tab by mouth daily at bedtime 11/04 AMITRIPTYLINE HCL 25 MG TAB 064650 AMITRIPTYLINE HCL Inactive LORAZEPAM 0.5 MG TAB take 1 tab po qday prn anxiety attacks 11/04 LORAZEPAM 0.5 MG TAB 444108 LORAZEPAM Inactive BACTRIM DS 800-160 MG TAB 1 tab by mouth twice daily BACTRIM DS 800-160 MG TAB 783325 TRIMETHOPRIM-SULFAMETHOXAZOLE Inactive ZITHROMAX Z-ADALGISA 250 MG TABS 2 today, then 1 daily for 4 days 2013 ZITHROMAX Z-ADALGISA 250 MG TABS 2587604 AZITHROMYCIN Inactive BACTRIM DS 800-160 MG TAB 1 tab by mouth twice daily BACTRIM DS 800-160 MG TAB [id number] TRIMETHOPRIM-SULFAMETHOXAZOLE Inactive Advance Directives Directive Description Start Date CONSENT: MEDICATION HISTORY CONSENT FOR MINOR CARE Immunizations Vaccine Administration Date Value Standard Description Adacel (Tetanus, reduced Diphtheria, and acellular Pertussis Immunization) Adacel [[id number]] tetanus toxoid, reduced diphtheria toxoid, and acellular [...] 0.36-3.74 Encounters Code Encounter Date Provider Facility CPT-71705 Level 4 Est. Patient 23:05:57 CDT Alli Frye MD [facility]-05179 Level 4 Est. Patient 12:25:34 CDT Alli Frye MD [facility]-36566 Level 4 Est. Patient 13:40:53 CDT Alli Frye MD [facility]-96748 Level 4 Est. Patient 13:18:45 MINI BAR ATTENDANT Alli Frye MD [facility]-19183 Level 4 Est. Patient 11:32:52 MINI BAR ATTENDANT Alli Frye MD [facility]-64224 Level 4 Est. Patient 14:47:16 CDT Alli Frye MD [facility]-59053 Level 3 Est. Patient 17:25:12 CDT Tamera Mustafa MD PhD [facility]-45206 Level 3 Est. Patient 15:47:52 CDT Jr Morrow MD [facility]-28209 Level 3 Est. Patient 17:07:09 MINI BAR ATTENDANT Tor Gramajo MD [facility]-31831 Level 3 Est. Patient 11:34:16 CDT Gerson EMANUEL [facility]-73613 Level 3 Est. Patient 16:33:58 CDT Edyta Otto APRN [facility]-07926 Level 3 Est. Patient 15:17:40 MINI BAR ATTENDANT Sera Mcdowell MD [facility]-58189 Level 3 Est. Patient 16:32:34 MINI BAR ATTENDANT Sera Mcdowell MD [facility] Procedures Code Procedure Name Date Entry Date Standard Description CPT-75253 First Vx - Ix admin via ID IM or jet injects without counseling by physician 15:09:59 CDT CPT-22730 Menveo Intramuscular Solution Reconstituted 15:09:59 CDT CPT-62423 Meningococcal Conjugate Vacine (Menactra) 12:25:34 CDT CPT-63509 Abd compl w upright 16:06:21 CDT CPT-PV Prev. Care Visit 12:33:36 MINI BAR ATTENDANT
--- OUTSIDE RECORDS SUMMARY | 2018-01-18 03:36 | XMS REPORT | Clinical Summary ---
Author Author Admin, WILBERT Organization [employer] Address Unknown Phone Unavailable Allergies, Adverse Reactions, [...] 1 tab po qday prn anxiety ALPRAZOLAM 32692637294 Active Alli Frye MD Active LORAZEPAM 0.5 MG TAB take 1 tab po qday prn anxiety attacks 11/04 LORAZEPAM 74206659566 No Longer Active Alli Frye MD Active RANITIDINE HCL 300 MG CAPS 1 tablet by mouth daily prn acid reflux RANITIDINE HCL 54865024766 Active Alli Frye MD Active METOPROLOL TARTRATE 25 MG ORAL TABS take 1 tab po BID METOPROLOL TARTRATE 70958290397 Active Alli Frye MD Active AMITRIPTYLINE HCL 25 MG TAB 1 tab by mouth daily at bedtime 11/04 AMITRIPTYLINE HCL 58877186559 No Longer Active Alli Frye MD Active ZOLOFT 50 MG TAB 1 tablet by mouth daily for mood and headache SERTRALINE HCL 32717181417 No Longer Active Alli Frye MD Active AMITRIPTYLINE HCL 50 MG TAB 1 po qhs for migraine AMITRIPTYLINE HCL 64946987415 No Longer Active Alli Frye MD Active ZOLOFT 100 MG TAB take 1 tab po qday for mood and headaches. SERTRALINE HCL 67819342439 Active Alli Frye MD Active LEVOTHYROXINE SODIUM 112 MCG TABS 1 pill by mouth daily for thyroid LEVOTHYROXINE SODIUM 65288743314 Active Alli Frye MD Active AMITRIPTYLINE HCL 50 MG ORAL TABS 1 pill by mouth nightly, for migraine prevention AMITRIPTYLINE HCL 49377967358 No Longer Active Alli Frye MD Active MAGNESIUM OXIDE 400 MG CAPS 1 po with migraine MAGNESIUM OXIDE 48243715274 No Longer Active Alli Frye MD Active AMITRIPTYLINE HCL 75 MG TAB take 1 tab po qhs for migraines. 2016 AMITRIPTYLINE HCL 50032549958 No Longer Active Alli Frye MD Active MULTIVITAMIN GUMMIES ADULT CHEW MULTIPLE VITAMINS-MINERALS 00838454303 Active Alli Frye MD Active TRANSDERM-SCOP 1.5 MG TRANS PT72 1 patch every 3 days, as needed for motion sickness, start at least 4 hours hours prior to departure SCOPOLAMINE BASE 52998260630 No Longer Active Alli Frye MD Active LEVOTHYROXINE SODIUM 125 MCG ORAL TABS 1 pill by mouth daily, for thyroid LEVOTHYROXINE SODIUM 75472896423 No Longer Active Alli Frye MD Active ZOFRAN ODT 4 MG TBDP 1 pill dissolved by mouth every 4 hours if needed for nausea ONDANSETRON 26692739658 Active Tamera Mustafa MD PhD Active SUMATRIPTAN 20 MG/ACT SOLN 1 spray in one nostril at onset of migraine; may repeat in 2 hours if needed for continued migraine SUMATRIPTAN 34403595586 No Longer Active Tamera Mustafa MD PhD Active ZOFRAN ODT 4 MG TBDP 1 po q6hr PRN Nausea ONDANSETRON 26777384647 No Longer Active Jr Morrow MD Active EXCEDRIN MIGRAINE 250-250-65 MG TABS 1 tab po as needed [id number] 02658180678 Active Jr Morrow MD Active ZOMIG 5 MG TABS Take 1 tablet by mouth daily as needed ZOLMITRIPTAN 58605311990 No Longer Active Jr Morrow MD Active BACTRIM DS 800-160 MG TAB 1 tab by mouth twice daily TRIMETHOPRIM-SULFAMETHOXAZOLE 83201497073 No Longer Active Tamera Mustafa MD PhD Active ZITHROMAX Z-ADALGISA 250 MG TABS 2 today, then 1 daily for 4 days 2013 AZITHROMYCIN 96880206626 No Longer Active Tor Gramajo MD Active MINOCYCLINE HCL 50 MG CAP 1 pill by mouth daily for acne MINOCYCLINE HCL 60175420337 No Longer Active Tor Gramajo MD Active AXERT 12.5 MG TABS 1 tablet by mouth at onset of migraine; may repeat x 1 if headache is still present in 2 hours ALMOTRIPTAN MALATE 38600196822 No Longer Active Tamera Mustafa MD PhD Active ELIMITE 5 % CREA Apply from head to toe including scalp and soles of feet. Wash off after 8 hours. PERMETHRIN 89386784922 No Longer Active Tamera Mustafa MD PhD Active AMOXICILLIN 500 MG TABS 2 PO bid x 10 days AMOXICILLIN 39676400559 No Longer Active Tamera Mustafa MD PhD Active MAXALT 5 MG TABS 1 pill by mouth at start of migraine; may repeat x 1 if no improvement in 2 hours RIZATRIPTAN BENZOATE 11814500842 No Longer Active Tamera Mustafa MD PhD Active BACTRIM DS 800-160 MG TAB 1 tab by mouth twice daily TRIMETHOPRIM-SULFAMETHOXAZOLE 46340641809 No Longer Active Alli Frye MD Active TRI-SPRINTEC 0.18/0.215/0.25 MG-35 MCG TABS 1 po qd as directed NORGESTIM-ETH ESTRAD TRIPHASIC 34174276754 Active Alli Frye MD Active AXERT 6.25 MG TABS 1 pill by mouth at start of migraine; may repeat x 1 in 1 hr if needed ALMOTRIPTAN MALATE 49356103672 No Longer Active Tamera Mustafa MD PhD Active GENERESS FE 0.8-25 MG-MCG CHEW 1 daily NORETHIN-ETH ESTRADIOL-FE 04501694352 No Longer Active Tamera Mustafa MD PhD Active DOXYCYCLINE HYCLATE 50 MG CAP 1 pill by mouth daily for acne 2012 DOXYCYCLINE HYCLATE 37255959050 No Longer Active Tamera Mustafa MD PhD Active AMOXICILLIN 875 MG TABS 1 TWO TIMES A DAY AMOXICILLIN 28199805536 No Longer Active Sera Mcdowell MD Active AMOXICILLIN 875 MG TABS 1 TWO TIMES A DAY AMOXICILLIN 875 MG TABS 899565 AMOXICILLIN Inactive DOXYCYCLINE HYCLATE 50 MG CAP 1 pill by mouth daily for acne 2012 DOXYCYCLINE HYCLATE 50 MG CAP 5177419 DOXYCYCLINE HYCLATE Inactive GENERESS FE 0.8-25 MG-MCG CHEW 1 daily GENERESS FE 0.8-25 MG-MCG CHEW 3034197 NORETHIN-ETH ESTRADIOL-FE Inactive AXERT 6.25 MG TABS 1 pill by mouth at start of migraine; may repeat x 1 in 1 hr if needed AXERT 6.25 MG TABS 904804 ALMOTRIPTAN MALATE Inactive MAXALT 5 MG TABS 1 pill by mouth at start of migraine; may repeat x 1 if no improvement in 2 hours MAXALT 5 MG TABS 147186 RIZATRIPTAN BENZOATE Inactive AMOXICILLIN 500 MG TABS 2 PO bid x 10 days AMOXICILLIN 500 MG TABS 978301 AMOXICILLIN Inactive ELIMITE 5 % CREA Apply from head to toe including scalp and soles of feet. Wash off after 8 hours. ELIMITE 5 % CREA 731927 PERMETHRIN Inactive AXERT 12.5 MG TABS 1 tablet by mouth at onset of migraine; may repeat x 1 if headache is still present in 2 hours AXERT 12.5 MG TABS 986572 ALMOTRIPTAN MALATE Inactive MINOCYCLINE HCL 50 MG CAP 1 pill by mouth daily for acne MINOCYCLINE HCL 50 MG CAP 400524 MINOCYCLINE HCL Inactive ZOMIG 5 MG TABS Take 1 tablet by mouth daily as needed ZOMIG 5 MG TABS 080148 ZOLMITRIPTAN Inactive ZOFRAN ODT 4 MG TBDP 1 po q6hr PRN Nausea ZOFRAN ODT 4 MG TBDP 018125 ONDANSETRON Inactive SUMATRIPTAN 20 MG/ACT SOLN 1 spray in one nostril at onset of migraine; may repeat in 2 hours if needed for continued migraine SUMATRIPTAN 20 MG/ACT SOLN 915749 SUMATRIPTAN Inactive LEVOTHYROXINE SODIUM 125 MCG ORAL TABS 1 pill by mouth daily, for thyroid LEVOTHYROXINE SODIUM 125 MCG ORAL TABS 344750 LEVOTHYROXINE SODIUM Inactive TRANSDERM-SCOP 1.5 MG TRANS PT72 1 patch every 3 days, as needed for motion sickness, start at least 4 hours hours prior to departure TRANSDERM-SCOP 1.5 MG TRANS PT72 SCOPOLAMINE BASE Inactive AMITRIPTYLINE HCL 75 MG TAB take 1 tab po qhs for migraines. 2016 AMITRIPTYLINE HCL 75 MG TAB 982980 AMITRIPTYLINE HCL Inactive MAGNESIUM OXIDE 400 MG CAPS 1 po with migraine MAGNESIUM OXIDE 400 MG CAPS 556320 MAGNESIUM OXIDE Inactive AMITRIPTYLINE HCL 50 MG ORAL TABS 1 pill by mouth nightly, for migraine prevention AMITRIPTYLINE HCL 50 MG ORAL TABS 797826 AMITRIPTYLINE HCL Inactive AMITRIPTYLINE HCL 50 MG TAB 1 po qhs for migraine AMITRIPTYLINE HCL 50 MG TAB 586834 AMITRIPTYLINE HCL Inactive ZOLOFT 50 MG TAB 1 tablet by mouth daily for mood and headache ZOLOFT 50 MG TAB 699957 SERTRALINE HCL Inactive AMITRIPTYLINE HCL 25 MG TAB 1 tab by mouth daily at bedtime 11/04 AMITRIPTYLINE HCL 25 MG TAB 257645 AMITRIPTYLINE HCL Inactive LORAZEPAM 0.5 MG TAB take 1 tab po qday prn anxiety attacks 11/04 LORAZEPAM 0.5 MG TAB 889141 LORAZEPAM Inactive BACTRIM DS 800-160 MG TAB 1 tab by mouth twice daily BACTRIM DS 800-160 MG TAB 028181 TRIMETHOPRIM-SULFAMETHOXAZOLE Inactive ZITHROMAX Z-ADALGISA 250 MG TABS 2 today, then 1 daily for 4 days 2013 ZITHROMAX Z-ADALGISA 250 MG TABS 3320863 AZITHROMYCIN Inactive BACTRIM DS 800-160 MG TAB 1 tab by mouth twice daily BACTRIM DS 800-160 MG TAB 19820713 TRIMETHOPRIM-SULFAMETHOXAZOLE Inactive Advance Directives Directive Description Start Date CONSENT: MEDICATION HISTORY CONSENT FOR MINOR CARE Immunizations Vaccine Administration Date Value Standard Description Adacel (Tetanus, reduced Diphtheria, and acellular Pertussis Immunization) Adacel [[id number]] tetanus toxoid, reduced diphtheria toxoid, and acellular [...] 0.36-3.74 Encounters Code Encounter Date Provider Facility CPT-12767 Level 4 Est. Patient 23:05:57 CDT Alli Frye MD [facility]-99702 Level 4 Est. Patient 12:25:34 CDT Alli Frye MD [facility]-73459 Level 4 Est. Patient 13:40:53 CDT Alli Frye MD [facility]-31327 Level 4 Est. Patient 13:18:[address]INTENANCE SUPERVIS[address] Alli Frye MD [facility]-08858 Level 4 Est. Patient 11:32:[address] MAINTENANCE SUPERVIS[address] Alli Frye MD [facility]-06155 Level 4 Est. Patient 14:47:16 CDT Alli Frye MD [facility]-55680 Level 3 Est. Patient 17:25:12 CDT Tamera Mustafa MD PhD [facility]-04550 Level 3 Est. Patient 15:47:52 CDT Jr Morrow MD [facility]-91967 Level 3 Est. Patient 17:07:[address] MAINTENANCE SUPERVIS[address] Tor Gramajo MD [facility]-56416 Level 3 Est. Patient 11:34:16 CDT Gerson EMANUEL [facility]-22144 Level 3 Est. Patient 16:33:58 CDT Edyta Otto APRN [facility]-69426 Level 3 Est. Patient 15:17:[address] MAINTENANCE SUPERVIS[address] Sera Mcdowell MD [facility]-71051 Level 3 Est. Patient 16:32:[address] MAINTENANCE SUPERVIS[address] Sera Mcdowell [facility] Procedures Code Procedure Name Date Entry Date Standard Description CPT-22537 First Vx - Ix admin via ID IM or jet injects without counseling by physician 15:09:59 CDT CPT-08476 Menveo Intramuscular Solution Reconstituted 15:09:59 CDT CPT-11710 Meningococcal Conjugate Vacine (Menactra) 12:25:34 CDT CPT-55567 Abd compl w upright 16:06:21 CDT CPT-PV Prev. Care Visit 12:33:[address] MAINTENANCE SUPERVIS[address]
--- OUTSIDE RECORDS SUMMARY | 2018-01-18 03:36 | XMS REPORT | Clinical Summary ---
Author Author Admin, QIE Organization [facility] Address Unknown Phone Unavailable Allergies, Adverse Reactions, [...] medical examination at a health care facility DYSURIA ICD-788.1 Inactive Sera Mcdowell MD CONSTIPATION [...] 1 tab po qday prn anxiety ALPRAZOLAM 21383353412 Active Alli Frye MD Active LORAZEPAM 0.5 MG TAB take 1 tab po qday prn anxiety attacks 11/04 LORAZEPAM 56541205052 No Longer Active Alli Frye MD Active RANITIDINE HCL 300 MG CAPS 1 tablet by mouth daily prn acid reflux RANITIDINE HCL 01275418846 Active Alli Frye MD Active METOPROLOL TARTRATE 25 MG ORAL TABS take 1 tab po BID METOPROLOL TARTRATE 76424819887 Active Alli Frye MD Active AMITRIPTYLINE HCL 25 MG TAB 1 tab by mouth daily at bedtime 11/04 AMITRIPTYLINE HCL 84192155841 No Longer Active Alli Frye MD Active ZOLOFT 50 MG TAB 1 tablet by mouth daily for mood and headache SERTRALINE HCL 43731452100 No Longer Active Alli Frye MD Active AMITRIPTYLINE HCL 50 MG TAB 1 po qhs for migraine AMITRIPTYLINE HCL 84319317573 No Longer Active Alli Frye MD Active ZOLOFT 100 MG TAB take 1 tab po qday for mood and headaches. SERTRALINE HCL 01630144035 Active Alli Frye MD Active LEVOTHYROXINE SODIUM 112 MCG TABS 1 pill by mouth daily for thyroid LEVOTHYROXINE SODIUM 44671650040 Active Alli Frye MD Active AMITRIPTYLINE HCL 50 MG ORAL TABS 1 pill by mouth nightly, for migraine prevention AMITRIPTYLINE HCL 08867145251 No Longer Active Alli Frye MD Active MAGNESIUM OXIDE 400 MG CAPS 1 po with migraine MAGNESIUM OXIDE 68649961003 No Longer Active Alli Frye MD Active AMITRIPTYLINE HCL 75 MG TAB take 1 tab po qhs for migraines. 2016 AMITRIPTYLINE HCL 09147418187 No Longer Active Alli Frye MD Active MULTIVITAMIN GUMMIES ADULT CHEW MULTIPLE VITAMINS-MINERALS 75529899539 Active Alli Frye MD Active TRANSDERM-SCOP 1.5 MG TRANS PT72 1 patch every 3 days, as needed for motion sickness, start at least 4 hours hours prior to departure SCOPOLAMINE BASE 37361233506 No Longer Active Alli Frye MD Active LEVOTHYROXINE SODIUM 125 MCG ORAL TABS 1 pill by mouth daily, for thyroid LEVOTHYROXINE SODIUM 88332125325 No Longer Active Alli Frye MD Active ZOFRAN ODT 4 MG TBDP 1 pill dissolved by mouth every 4 hours if needed for nausea ONDANSETRON 43718747877 Active Tamera Mustafa MD PhD Active SUMATRIPTAN 20 MG/ACT SOLN 1 spray in one nostril at onset of migraine; may repeat in 2 hours if needed for continued migraine SUMATRIPTAN 00198196150 No Longer Active Tamera Mustafa MD PhD Active ZOFRAN ODT 4 MG TBDP 1 po q6hr PRN Nausea ONDANSETRON 35173839416 No Longer Active Jr Morrow MD Active EXCEDRIN MIGRAINE 250-250-65 MG TABS 1 tab po as needed [id number] 18390983430 Active Jr Morrow MD Active ZOMIG 5 MG TABS Take 1 tablet by mouth daily as needed ZOLMITRIPTAN 32566612428 No Longer Active Jr Morrow MD Active BACTRIM DS 800-160 MG TAB 1 tab by mouth twice daily TRIMETHOPRIM-SULFAMETHOXAZOLE 05654614752 No Longer Active Tamera Mustafa MD PhD Active ZITHROMAX Z-ADALGISA 250 MG TABS 2 today, then 1 daily for 4 days 2013 AZITHROMYCIN 80100468810 No Longer Active Tor Gramajo MD Active MINOCYCLINE HCL 50 MG CAP 1 pill by mouth daily for acne MINOCYCLINE HCL 39202880280 No Longer Active Tor Gramajo MD Active AXERT 12.5 MG TABS 1 tablet by mouth at onset of migraine; may repeat x 1 if headache is still present in 2 hours ALMOTRIPTAN MALATE 66477791835 No Longer Active Tamera Mustafa MD PhD Active ELIMITE 5 % CREA Apply from head to toe including scalp and soles of feet. Wash off after 8 hours. PERMETHRIN 02133234238 No Longer Active Tamera Mustafa MD PhD Active AMOXICILLIN 500 MG TABS 2 PO bid x 10 days AMOXICILLIN 14512362106 No Longer Active Tamera Mustafa MD PhD Active MAXALT 5 MG TABS 1 pill by mouth at start of migraine; may repeat x 1 if no improvement in 2 hours RIZATRIPTAN BENZOATE 95535302739 No Longer Active Tamera Mustafa MD PhD Active BACTRIM DS 800-160 MG TAB 1 tab by mouth twice daily TRIMETHOPRIM-SULFAMETHOXAZOLE 05890387035 No Longer Active Alli Frye MD Active TRI-SPRINTEC 0.18/0.215/0.25 MG-35 MCG TABS 1 po qd as directed NORGESTIM-ETH ESTRAD TRIPHASIC 04138730447 Active Alli Frye MD Active AXERT 6.25 MG TABS 1 pill by mouth at start of migraine; may repeat x 1 in 1 hr if needed ALMOTRIPTAN MALATE 68883731335 No Longer Active Tamera Mustafa MD PhD Active GENERESS FE 0.8-25 MG-MCG CHEW 1 daily NORETHIN-ETH ESTRADIOL-FE 75549976305 No Longer Active Tamera Mustafa MD PhD Active DOXYCYCLINE HYCLATE 50 MG CAP 1 pill by mouth daily for acne 2012 DOXYCYCLINE HYCLATE 44181170054 No Longer Active Tamera Mustafa MD PhD Active AMOXICILLIN 875 MG TABS 1 TWO TIMES A DAY AMOXICILLIN 76821482351 No Longer Active Sera Mcdowell MD Active AMOXICILLIN 875 MG TABS 1 TWO TIMES A DAY AMOXICILLIN 875 MG TABS 744777 AMOXICILLIN Inactive DOXYCYCLINE HYCLATE 50 MG CAP 1 pill by mouth daily for acne 2012 DOXYCYCLINE HYCLATE 50 MG CAP 6869005 DOXYCYCLINE HYCLATE Inactive GENERESS FE 0.8-25 MG-MCG CHEW 1 daily GENERESS FE 0.8-25 MG-MCG CHEW 4311474 NORETHIN-ETH ESTRADIOL-FE Inactive AXERT 6.25 MG TABS 1 pill by mouth at start of migraine; may repeat x 1 in 1 hr if needed AXERT 6.25 MG TABS 334009 ALMOTRIPTAN MALATE Inactive MAXALT 5 MG TABS 1 pill by mouth at start of migraine; may repeat x 1 if no improvement in 2 hours MAXALT 5 MG TABS 614915 RIZATRIPTAN BENZOATE Inactive AMOXICILLIN 500 MG TABS 2 PO bid x 10 days AMOXICILLIN 500 MG TABS 408918 AMOXICILLIN Inactive ELIMITE 5 % CREA Apply from head to toe including scalp and soles of feet. Wash off after 8 hours. ELIMITE 5 % CREA 470031 PERMETHRIN Inactive AXERT 12.5 MG TABS 1 tablet by mouth at onset of migraine; may repeat x 1 if headache is still present in 2 hours AXERT 12.5 MG TABS 910554 ALMOTRIPTAN MALATE Inactive MINOCYCLINE HCL 50 MG CAP 1 pill by mouth daily for acne MINOCYCLINE HCL 50 MG CAP 222810 MINOCYCLINE HCL Inactive ZOMIG 5 MG TABS Take 1 tablet by mouth daily as needed ZOMIG 5 MG TABS 837403 ZOLMITRIPTAN Inactive ZOFRAN ODT 4 MG TBDP 1 po q6hr PRN Nausea ZOFRAN ODT 4 MG TBDP 632782 ONDANSETRON Inactive SUMATRIPTAN 20 MG/ACT SOLN 1 spray in one nostril at onset of migraine; may repeat in 2 hours if needed for continued migraine SUMATRIPTAN 20 MG/ACT SOLN 374555 SUMATRIPTAN Inactive LEVOTHYROXINE SODIUM 125 MCG ORAL TABS 1 pill by mouth daily, for thyroid LEVOTHYROXINE SODIUM 125 MCG ORAL TABS 016181 LEVOTHYROXINE SODIUM Inactive TRANSDERM-SCOP 1.5 MG TRANS PT72 1 patch every 3 days, as needed for motion sickness, start at least 4 hours hours prior to departure TRANSDERM-SCOP 1.5 MG TRANS PT72 SCOPOLAMINE BASE Inactive AMITRIPTYLINE HCL 75 MG TAB take 1 tab po qhs for migraines. 2016 AMITRIPTYLINE HCL 75 MG TAB 999072 AMITRIPTYLINE HCL Inactive MAGNESIUM OXIDE 400 MG CAPS 1 po with migraine MAGNESIUM OXIDE 400 MG CAPS 394375 MAGNESIUM OXIDE Inactive AMITRIPTYLINE HCL 50 MG ORAL TABS 1 pill by mouth nightly, for migraine prevention AMITRIPTYLINE HCL 50 MG ORAL TABS 663652 AMITRIPTYLINE HCL Inactive AMITRIPTYLINE HCL 50 MG TAB 1 po qhs for migraine AMITRIPTYLINE HCL 50 MG TAB 258492 AMITRIPTYLINE HCL Inactive ZOLOFT 50 MG TAB 1 tablet by mouth daily for mood and headache ZOLOFT 50 MG TAB 972852 SERTRALINE HCL Inactive AMITRIPTYLINE HCL 25 MG TAB 1 tab by mouth daily at bedtime 11/04 AMITRIPTYLINE HCL 25 MG TAB 524221 AMITRIPTYLINE HCL Inactive LORAZEPAM 0.5 MG TAB take 1 tab po qday prn anxiety attacks 11/04 LORAZEPAM 0.5 MG TAB 256640 LORAZEPAM Inactive BACTRIM DS 800-160 MG TAB 1 tab by mouth twice daily BACTRIM DS 800-160 MG TAB 012389 TRIMETHOPRIM-SULFAMETHOXAZOLE Inactive ZITHROMAX Z-ADALGISA 250 MG TABS 2 today, then 1 daily for 4 days 2013 ZITHROMAX Z-ADALGISA 250 MG TABS 1175161 AZITHROMYCIN Inactive BACTRIM DS 800-160 MG TAB 1 tab by mouth twice daily BACTRIM DS 800-160 MG TAB 19820713 TRIMETHOPRIM-SULFAMETHOXAZOLE Inactive Advance Directives Directive Description Start Date CONSENT: MEDICATION HISTORY CONSENT FOR MINOR CARE Immunizations Vaccine Administration Date Value Standard Description Adacel (Tetanus, reduced Diphtheria, and acellular Pertussis Immunization) Adacel [[id number]] tetanus toxoid, reduced diphtheria toxoid, and acellular [...] Value Unit Range Description blood pressure, diastolic 87 mm[Hg] BP bonilla [...] 0.36-3.74 Encounters Code Encounter Date Provider Facility CPT-28198 Level 4 Est. Patient 12:25:34 CDT Alli Frye MD [facility] CPT-56733 Level 4 Est. Patient 13:40:53 CDT Alli Frye MD [facility] CPT-76676 Level 4 Est. Patient 13:18:45 LCPC Alli Frye MD [facility] CPT-98762 Level 4 Est. Patient 11:32:52 LCPC Alli Frye MD [facility] CPT-68527 Level 4 Est. Patient 14:47:16 CDT Alli Frye MD [facility] CPT-70242 Level 3 Est. Patient 17:25:12 CDT Tamera Mustafa MD PhD [facility] CPT-68046 Level 3 Est. Patient 15:47:52 CDT Jr Morrow MD [facility] CPT-03376 Level 3 Est. Patient 17:07:09 LCPC Tor Gramajo MD [facility] CPT-06017 Level 3 Est. Patient 11:34:16 CDT Gerson EMANUEL [facility] CPT-04943 Level 3 Est. Patient 16:33:58 CDT Edyta Otto APRN [facility] CPT-67333 Level 3 Est. Patient 15:17:40 LCPC Sera Mcdowell MD [facility] CPT-40285 Level 3 Est. Patient 16:32:34 LCPC Sera Mcdowell MD [facility] Procedures Code Procedure Name Date Entry Date Standard Description CPT-24828 First Vx - Ix admin via ID IM or jet injects without counseling by physician 15:09:59 CDT CPT-29745 Menveo Intramuscular Solution Reconstituted 15:09:59 CDT CPT-01418 Meningococcal Conjugate Vacine (Menactra) 12:25:34 CDT CPT-92829 Abd compl w upright 16:06:21 CDT CPT-PV Prev. Care Visit 12:33:36 LCPC
--- OUTSIDE RECORDS SUMMARY | 2018-01-18 03:37 | XMS REPORT | Clinical Summary ---
Author Author Admin, WILBERT [facility] Address Unknown Phone Unavailable [...] Sera Mcdowell MD THYROMEGALY ICD-240.9 Inactive Tamera uMstafa MD PhD SCABIES ICD-133.0 Inactive Tor Gramajo [...] hours hours prior to departure SCOPOLAMINE BASE 50977116005 Active Tamera Mustafa MD PhD Active ZOFRAN ODT 4 MG TBDP 1 pill dissolved by mouth every 4 hours if needed for nausea ONDANSETRON 46989537250 Active Tamera Mustafa MD PhD Active AMITRIPTYLINE HCL 25 MG ORAL TABS 1 pill by mouth nightly, for migraine prevention AMITRIPTYLINE HCL 75083315616 Active Tamera Mustafa MD PhD Active LEVOTHYROXINE SODIUM 100 MCG ORAL TABS 1 tab by mouth daily LEVOTHYROXINE SODIUM 17693096116 Active Tamera Mustafa MD PhD Active SUMATRIPTAN 20 MG/ACT SOLN 1 spray in one nostril at onset of migraine; may repeat in 2 hours if needed for continued migraine SUMATRIPTAN 47383824952 No Longer Active Tamera Mustafa MD PhD Active ZOFRAN ODT 4 MG TBDP 1 po q6hr PRN Nausea ONDANSETRON 93239803367 No Longer Active Jr Morrow MD Active EXCEDRIN MIGRAINE 250-250-65 MG TABS 1 tab po as needed [id number] 43060005606 Active Jr Morrow MD Active ZOMIG 5 MG TABS Take 1 tablet by mouth daily as needed ZOLMITRIPTAN 56948359144 No Longer Active Jr Morrow MD Active BACTRIM DS 800-160 MG TAB 1 tab by mouth twice daily TRIMETHOPRIM-SULFAMETHOXAZOLE 26778983851 No Longer Active Tamera Mustafa MD PhD Active ZITHROMAX Z-ADALGISA 250 MG TABS 2 today, then 1 daily for 4 days 2013 AZITHROMYCIN 45598845815 No Longer Active Tor Gramajo MD Active MINOCYCLINE HCL 50 MG CAP 1 pill by mouth daily for acne MINOCYCLINE HCL 21071548888 No Longer Active Tor Gramajo MD Active AXERT 12.5 MG TABS 1 tablet by mouth at onset of migraine; may repeat x 1 if headache is still present in 2 hours ALMOTRIPTAN MALATE 61181692839 No Longer Active Tamera Mustafa MD PhD Active ELIMITE 5 % CREA Apply from head to toe including scalp and soles of feet. Wash off after 8 hours. PERMETHRIN 04827318891 No Longer Active Tamera Mustafa MD PhD Active AMOXICILLIN 500 MG TABS 2 PO bid x 10 days AMOXICILLIN 28026595784 No Longer Active Tamera Mustafa MD PhD Active MAXALT 5 MG TABS 1 pill by mouth at start of migraine; may repeat x 1 if no improvement in 2 hours RIZATRIPTAN BENZOATE 46411696219 No Longer Active Tamera Mustafa MD PhD Active BACTRIM DS 800-160 MG TAB 1 tab by mouth twice daily TRIMETHOPRIM-SULFAMETHOXAZOLE 06569844992 No Longer Active Alli Frye MD Active TRI-SPRINTEC 0.18/0.215/0.25 MG-35 MCG TABS 1 po qd as directed NORGESTIM-ETH ESTRAD TRIPHASIC 42602692660 Active Gerson EMANUEL Active AXERT 6.25 MG TABS 1 pill by mouth at start of migraine; may repeat x 1 in 1 hr if needed ALMOTRIPTAN MALATE 13826363480 No Longer Active Tamera Mustafa MD PhD Active GENERESS FE 0.8-25 MG-MCG CHEW 1 daily NORETHIN-ETH ESTRADIOL-FE 50007988132 No Longer Active Tamera Mustafa MD PhD Active DOXYCYCLINE HYCLATE 50 MG CAP 1 pill by mouth daily for acne 2012 DOXYCYCLINE HYCLATE 32931819434 No Longer Active Tamera Mustafa MD PhD Active AMOXICILLIN 875 MG TABS 1 TWO TIMES A DAY AMOXICILLIN 61312033577 No Longer Active Sera Mcdowell MD Active AMOXICILLIN 875 MG TABS 1 TWO TIMES A DAY AMOXICILLIN 875 MG TABS 206886 AMOXICILLIN Inactive DOXYCYCLINE HYCLATE 50 MG CAP 1 pill by mouth daily for acne 2012 DOXYCYCLINE HYCLATE 50 MG CAP 156595 DOXYCYCLINE HYCLATE Inactive GENERESS FE 0.8-25 MG-MCG [...] in 2 hours MAXALT 5 MG TABS 194845 RIZATRIPTAN BENZOATE Inactive AMOXICILLIN 500 MG TABS 2 PO bid x 10 days AMOXICILLIN 500 MG TABS 866667 AMOXICILLIN Inactive ELIMITE 5 % CREA Apply from head to toe including scalp and soles of feet. Wash off after 8 hours. ELIMITE 5 % CREA 333991 PERMETHRIN Inactive AXERT 12.5 MG TABS 1 tablet by mouth at onset of migraine; may repeat x 1 if headache is still present in 2 hours AXERT 12.5 MG TABS ALMOTRIPTAN MALATE Inactive MINOCYCLINE HCL 50 MG CAP 1 pill by mouth daily for acne MINOCYCLINE HCL 50 MG CAP 726743 MINOCYCLINE HCL Inactive ZOMIG 5 MG TABS Take 1 tablet by mouth daily as needed ZOMIG 5 MG TABS 896069 ZOLMITRIPTAN Inactive ZOFRAN ODT 4 MG TBDP 1 po q6hr PRN Nausea ZOFRAN ODT 4 MG TBDP 886860 ONDANSETRON Inactive SUMATRIPTAN 20 MG/ACT SOLN 1 spray in one nostril at onset of migraine; may repeat in 2 hours if needed for continued migraine SUMATRIPTAN 20 MG/ACT SOLN 302770 SUMATRIPTAN Inactive BACTRIM DS 800-160 MG TAB 1 tab by mouth twice daily BACTRIM DS 800-160 MG TAB TRIMETHOPRIM-SULFAMETHOXAZOLE Inactive ZITHROMAX Z-ADALGISA 250 MG TABS 2 today, then 1 daily for 4 days 2013 ZITHROMAX Z-ADALGISA 250 MG TABS 8230631 AZITHROMYCIN Inactive BACTRIM DS 800-160 MG TAB 1 tab by mouth twice daily BACTRIM DS 800-160 MG TAB TRIMETHOPRIM-SULFAMETHOXAZOLE Inactive Advance Directives Directive Description Start Date CONSENT: MEDICATION HISTORY CONSENT FOR MINOR CARE Immunizations Vaccine Administration Date Value Standard Description Adacel (Tetanus, reduced Diphtheria, and acellular Pertussis Immunization) Adacel [[id number]] tetanus toxoid, reduced diphtheria toxoid, and acellular [...] Lab Report: CBC W/DIFF, Comp. Metabolic Panel, [facility] [place] - Chemistry sodium, serum 134 mmol/L 283-023 0308/09/10 potassium, serum 4.4 mmol/L 3.5-5.2 chloride, serum [...] Lab Report: CBC W/DIFF, Comp. Metabolic Panel, [facility] [place] - Hematology leukocyte count, blood 18.3 10^3/MM^3 [...] Lab Report: UADIP W/MICRO, AUTO - Chemistry RBC, urine, dipstick Negative Negative protein, total urine random 2+ mg/dL Negative Lab Report: UADIP W/MICRO, AUTO - Urinalysis pH, urine, semiquantitative 6.0 5.0-8.5 specific gravity, urine >=1.030 1.000-1.030 appearance, urine SlCloudy Clear urine color [place] Colorless;Lightyellow;Straw;Yellow urobilinogen, urine, semiquantitative (dipstick) 1.0 Normal leukocyte esterase, urine, by dipstick Negative Negative nitrite, urine, semiquantitative Negative Negative glucose, urine, semiquantitative Negative Negative ketones, urine, by test strip 3+ Negative bilirubin, urine Negative Negative Encounters Code Encounter Date Provider Facility CPT-74585 Level 3 Est. Patient 17:25:12 CDT Tamera Mustafa MD PhD [facility] CPT-26896 Level 3 Est. Patient 15:47:52 CDT Jr Morrow MD [facility] CPT-80278 Level 3 Est. Patient 17:07:09 RN LABOR AND DELIVERY Tor Gramajo MD [facility] CPT-64216 Level 3 Est. Patient 11:34:16 CDT Gerson EMANUEL [facility] CPT-02107 Level 3 Est. Patient 16:33:58 CDT Edyta Otto APRN [facility] CPT-86909 Level 3 Est. Patient 15:17:40 RN LABOR AND DELIVERY Sera Mcdowell MD [facility] CPT-58703 Level 3 Est. Patient 16:32:34 RN LABOR AND DELIVERY Sera Mcdowell MD [facility] Procedures Code Procedure Name Date Entry Date Standard Description CPT-04197 Abd compl w upright 16:06:21 CDT CPT-PV Prev. Care Visit 12:33:36 RN LABOR AND DELIVERY
--- OUTSIDE RECORDS SUMMARY | 2018-01-18 03:38 | XMS REPORT | Clinical Summary ---
Author Author Admin, CRISTOPHERE Organization [employer] Address Unknown Phone Unavailable Allergies, Adverse Reactions, [...] daily for mood and headache SERTRALINE HCL [id number] No Longer Active Alli Frye MD Active AMITRIPTYLINE HCL 50 MG TAB 1 po qhs for migraine AMITRIPTYLINE HCL 65239346529 No Longer Active Alli rFye MD Active AMITRIPTYLINE HCL 25 MG TAB 1 tab by mouth daily at bedtime AMITRIPTYLINE HCL 01642090792 Active Alli Frye MD Active ZOLOFT 100 MG TAB take 1 tab po qday for mood and headaches. SERTRALINE HCL 18592898922 Active Alli Frye MD Active LEVOTHYROXINE SODIUM 112 MCG TABS 1 pill by mouth daily for thyroid LEVOTHYROXINE SODIUM 66587940747 Active Alli Frye MD Active AMITRIPTYLINE HCL 50 MG ORAL TABS 1 pill by mouth nightly, for migraine prevention AMITRIPTYLINE HCL 12959849262 No Longer Active Alli Frye MD Active MAGNESIUM OXIDE 400 MG CAPS 1 po with migraine MAGNESIUM OXIDE 69487553059 No Longer Active Alli Frye MD Active AMITRIPTYLINE HCL 75 MG TAB take 1 tab po qhs for migraines. 2016 AMITRIPTYLINE HCL 01756954691 No Longer Active Alli Frye MD Active LORAZEPAM 0.5 MG TAB take 1 tab po qday prn anxiety attacks LORAZEPAM 37311218744 Active Alli Frye MD Active MULTIVITAMIN GUMMIES ADULT CHEW MULTIPLE VITAMINS-MINERALS 62447158459 Active Alli Frye MD Active TRANSDERM-SCOP 1.5 MG TRANS PT72 1 patch every 3 days, as needed for motion sickness, start at least 4 hours hours prior to departure SCOPOLAMINE BASE 12957660905 No Longer Active Alli Frye MD Active LEVOTHYROXINE SODIUM 125 MCG ORAL TABS 1 pill by mouth daily, for thyroid LEVOTHYROXINE SODIUM 86044546117 No Longer Active Alli Frye MD Active ZOFRAN ODT 4 MG TBDP 1 pill dissolved by mouth every 4 hours if needed for nausea ONDANSETRON 87364251083 Active Tamera Mustafa MD PhD Active SUMATRIPTAN 20 MG/ACT SOLN 1 spray in one nostril at onset of migraine; may repeat in 2 hours if needed for continued migraine SUMATRIPTAN 76557329379 No Longer Active Tamera Mustafa MD PhD Active ZOFRAN ODT 4 MG TBDP 1 po q6hr PRN Nausea ONDANSETRON 06256060099 No Longer Active Jr Morrow MD Active EXCEDRIN MIGRAINE 250-250-65 MG TABS 1 tab po as needed [id number] 77421356666 Active Jr Morrow MD Active ZOMIG 5 MG TABS Take 1 tablet by mouth daily as needed ZOLMITRIPTAN 77040814862 No Longer Active Jr Morrow MD Active BACTRIM DS 800-160 MG TAB 1 tab by mouth twice daily TRIMETHOPRIM-SULFAMETHOXAZOLE 20187998625 No Longer Active Tamera Mustafa MD PhD Active ZITHROMAX Z-ADALGISA 250 MG TABS 2 today, then 1 daily for 4 days 2013 AZITHROMYCIN 04944815051 No Longer Active Tor Gramajo MD Active MINOCYCLINE HCL 50 MG CAP 1 pill by mouth daily for acne MINOCYCLINE HCL 56424933671 No Longer Active Tor Gramajo MD Active AXERT 12.5 MG TABS 1 tablet by mouth at onset of migraine; may repeat x 1 if headache is still present in 2 hours ALMOTRIPTAN MALATE 29393195706 No Longer Active Tamera Mustafa MD PhD Active ELIMITE 5 % CREA Apply from head to toe including scalp and soles of feet. Wash off after 8 hours. PERMETHRIN 54352753361 No Longer Active Tamera Mustafa MD PhD Active AMOXICILLIN 500 MG TABS 2 PO bid x 10 days AMOXICILLIN 89309534545 No Longer Active Tamera Mustafa MD PhD Active MAXALT 5 MG TABS 1 pill by mouth at start of migraine; may repeat x 1 if no improvement in 2 hours RIZATRIPTAN BENZOATE 17232124060 No Longer Active Tamera Mustafa MD PhD Active BACTRIM DS 800-160 MG TAB 1 tab by mouth twice daily TRIMETHOPRIM-SULFAMETHOXAZOLE 27353545714 No Longer Active Alli Frye MD Active TRI-SPRINTEC 0.18/0.215/0.25 MG-35 MCG TABS 1 po qd as directed NORGESTIM-ETH ESTRAD TRIPHASIC 71348693204 Active Alli Frye MD Active AXERT 6.25 MG TABS 1 pill by mouth at start of migraine; may repeat x 1 in 1 hr if needed ALMOTRIPTAN MALATE 23793714953 No Longer Active Tamera Mustafa MD PhD Active GENERESS FE 0.8-25 MG-MCG CHEW 1 daily NORETHIN-ETH ESTRADIOL-FE 56306051231 No Longer Active Tamera Mustafa MD PhD Active DOXYCYCLINE HYCLATE 50 MG CAP 1 pill by mouth daily for acne 2012 DOXYCYCLINE HYCLATE 28547440314 No Longer Active Tamera Mustafa MD PhD Active AMOXICILLIN 875 MG TABS 1 TWO TIMES A DAY AMOXICILLIN 29929841813 No Longer Active Sera Mcdowell MD Active AMOXICILLIN 875 MG TABS 1 TWO TIMES A DAY AMOXICILLIN 875 MG TABS 191974 AMOXICILLIN Inactive DOXYCYCLINE HYCLATE 50 MG CAP 1 pill by mouth daily for acne 2012 DOXYCYCLINE HYCLATE 50 MG CAP 2459995 DOXYCYCLINE HYCLATE Inactive GENERESS FE 0.8-25 MG-MCG CHEW 1 daily GENERESS FE 0.8-25 MG-MCG CHEW 2427328 NORETHIN-ETH ESTRADIOL-FE Inactive AXERT 6.25 MG TABS 1 pill by mouth at start of migraine; may repeat x 1 in 1 hr if needed AXERT 6.25 MG TABS 089594 ALMOTRIPTAN MALATE Inactive MAXALT 5 MG TABS 1 pill by mouth at start of migraine; may repeat x 1 if no improvement in 2 hours MAXALT 5 MG TABS 842372 RIZATRIPTAN BENZOATE Inactive AMOXICILLIN 500 MG TABS 2 PO bid x 10 days AMOXICILLIN 500 MG TABS 805972 AMOXICILLIN Inactive ELIMITE 5 % CREA Apply from head to toe including scalp and soles of feet. Wash off after 8 hours. ELIMITE 5 % CREA 728559 PERMETHRIN Inactive AXERT 12.5 MG TABS 1 tablet by mouth at onset of migraine; may repeat x 1 if headache is still present in 2 hours AXERT 12.5 MG TABS 883950 ALMOTRIPTAN MALATE Inactive MINOCYCLINE HCL 50 MG CAP 1 pill by mouth daily for acne MINOCYCLINE HCL 50 MG CAP 327482 MINOCYCLINE HCL Inactive ZOMIG 5 MG TABS Take 1 tablet by mouth daily as needed ZOMIG 5 MG TABS 709348 ZOLMITRIPTAN Inactive ZOFRAN ODT 4 MG TBDP 1 po q6hr PRN Nausea ZOFRAN ODT 4 MG TBDP 630226 ONDANSETRON Inactive SUMATRIPTAN 20 MG/ACT SOLN 1 spray in one nostril at onset of migraine; may repeat in 2 hours if needed for continued migraine SUMATRIPTAN 20 MG/ACT SOLN 185124 SUMATRIPTAN Inactive LEVOTHYROXINE SODIUM 125 MCG ORAL TABS 1 pill by mouth daily, for thyroid LEVOTHYROXINE SODIUM 125 MCG ORAL TABS 542946 LEVOTHYROXINE SODIUM Inactive TRANSDERM-SCOP 1.5 MG TRANS PT72 1 patch every 3 days, as needed for motion sickness, start at least 4 hours hours prior to departure TRANSDERM-SCOP 1.5 MG TRANS PT72 SCOPOLAMINE BASE Inactive AMITRIPTYLINE HCL 75 MG TAB take 1 tab po qhs for migraines. 2016 AMITRIPTYLINE HCL 75 MG TAB 118659 AMITRIPTYLINE HCL Inactive MAGNESIUM OXIDE 400 MG CAPS 1 po with migraine MAGNESIUM OXIDE 400 MG CAPS 614106 MAGNESIUM OXIDE Inactive AMITRIPTYLINE HCL 50 MG ORAL TABS 1 pill by mouth nightly, for migraine prevention AMITRIPTYLINE HCL 50 MG ORAL TABS 643020 AMITRIPTYLINE HCL Inactive AMITRIPTYLINE HCL 50 MG TAB 1 po qhs for migraine AMITRIPTYLINE HCL 50 MG TAB 244368 AMITRIPTYLINE HCL Inactive ZOLOFT 50 MG TAB 1 tablet by mouth daily for mood and headache ZOLOFT 50 MG TAB 049909 SERTRALINE HCL Inactive BACTRIM DS 800-160 MG TAB 1 tab by mouth twice daily BACTRIM DS 800-160 MG TAB 641642 TRIMETHOPRIM-SULFAMETHOXAZOLE Inactive ZITHROMAX Z-ADALGISA 250 MG TABS 2 today, then 1 daily for 4 days 2013 ZITHROMAX Z-ADALGISA 250 MG TABS 2464827 AZITHROMYCIN Inactive BACTRIM DS 800-160 MG TAB 1 tab by mouth twice daily BACTRIM DS 800-160 MG TAB [id number] TRIMETHOPRIM-SULFAMETHOXAZOLE Inactive Advance Directives Directive Description Start Date CONSENT: MEDICATION HISTORY CONSENT FOR MINOR CARE Immunizations Vaccine Administration Date Value Standard Description Adacel (Tetanus, reduced Diphtheria, and acellular Pertussis Immunization) Adacel [[id number]] tetanus toxoid, reduced diphtheria toxoid, and acellular [...] Measured Encounters Code Encounter Date Provider Facility CPT-10162 Level 4 Est. Patient 13:40:53 CDT Alli Frye MD [facility] CPT-30426 Level 4 Est. Patient 13:18:45 LYRIC WRITER Alli Frye MD [facility] CPT-85226 Level 4 Est. Patient 11:32:52 LYRIC WRITER Alli Frye MD [facility] CPT-13913 Level 4 Est. Patient 14:47:16 CDT Alli Frye MD [facility] CPT-81020 Level 3 Est. Patient 17:25:12 CDT Tamera Mustafa MD [facility] CPT-47301 Level 3 Est. Patient 15:47:52 CDT Jr Morrow MD [facility] CPT-95027 Level 3 Est. Patient 17:07:09 LYRIC WRITER Tor Gramajo MD [facility] CPT-22466 Level 3 Est. Patient 11:34:16 CDT Gerson EMANUEL [facility] CPT-01092 Level 3 Est. Patient 16:33:58 CDT Edyta Otto APRN [facility] CPT-30026 Level 3 Est. Patient 15:17:40 LYRIC WRITER Sera Mcdowell MD [facility] CPT-91003 Level 3 Est. Patient 16:32:34 LYRIC WRITER Sera Mcdowell MD [facility] Procedures Code Procedure Name Date Entry Date Standard Description CPT-32418 Abd compl w upright 16:06:21 CDT CPT-PV Prev. Care Visit 12:33:36 LYRIC WRITER
--- OUTSIDE RECORDS SUMMARY | 2018-01-18 03:38 | XMS REPORT | Clinical Summary ---
Author Author Admin, QIE Organization [facility] Address Unknown Phone Unavailable Allergies, Adverse Reactions, [...] a health care facility HYPOTHYROIDISM 244.9 Active Tamrea Mustafa MD PhD Unspecified hypothyroidism SCABIES 133.0 [...] 1 tab po qday prn anxiety ALPRAZOLAM 25906143052 No Longer Active Tatyana Lam Active BUSPIRONE HCL 10 MG ORAL TABLET 1 TAB PO PRN BUSPIRONE HCL 96380089572 Active Tatyana Lam Active LORAZEPAM 0.5 MG TAB take 1 tab po qday prn anxiety attacks 11/04 LORAZEPAM 70895845237 No Longer Active Alli Frye MD Active RANITIDINE HCL 300 MG CAPS 1 tablet by mouth daily prn acid reflux RANITIDINE HCL 48874081578 Active Alli Frye MD Active METOPROLOL TARTRATE 25 MG ORAL TABS take 1 tab po BID METOPROLOL TARTRATE 97966002097 Active Alli Frye MD Active AMITRIPTYLINE HCL 25 MG TAB 1 tab by mouth daily at bedtime 11/04 AMITRIPTYLINE HCL 44799188753 No Longer Active Alli Frye MD Active ZOLOFT 50 MG TAB 1 tablet by mouth daily for mood and headache SERTRALINE HCL 39700414705 No Longer Active Alli Frye MD Active AMITRIPTYLINE HCL 50 MG TAB 1 po qhs for migraine AMITRIPTYLINE HCL 06298398008 No Longer Active Alli Frye MD Active ZOLOFT 100 MG TAB take 1 tab po qday for mood and headaches. SERTRALINE HCL 44064633042 Active Tatyana Genaro Active LEVOTHYROXINE SODIUM 112 MCG TABS 1 pill by mouth daily for thyroid LEVOTHYROXINE SODIUM 88961709238 Active Alli Frye MD Active AMITRIPTYLINE HCL 50 MG ORAL TABS 1 pill by mouth nightly, for migraine prevention AMITRIPTYLINE HCL 95508118503 No Longer Active Alli Frye MD Active MAGNESIUM OXIDE 400 MG CAPS 1 po with migraine MAGNESIUM OXIDE 04555677454 No Longer Active Alli Frye MD Active AMITRIPTYLINE HCL 75 MG TAB take 1 tab po qhs for migraines. 2016 AMITRIPTYLINE HCL 11308041142 No Longer Active Alli Frye MD Active MULTIVITAMIN GUMMIES ADULT CHEW MULTIPLE VITAMINS-MINERALS 99548663687 Active Alli Frye MD Active TRANSDERM-SCOP 1.5 MG TRANS PT72 1 patch every 3 days, as needed for motion sickness, start at least 4 hours hours prior to departure SCOPOLAMINE BASE 96940382404 No Longer Active Alli Frye MD Active LEVOTHYROXINE SODIUM 125 MCG ORAL TABS 1 pill by mouth daily, for thyroid LEVOTHYROXINE SODIUM 24750412835 No Longer Active Alli Frye MD Active ZOFRAN ODT 4 MG TBDP 1 pill dissolved by mouth every 4 hours if needed for nausea ONDANSETRON 50589190858 Active Tamera Mustafa MD PhD Active SUMATRIPTAN 20 MG/ACT SOLN 1 spray in one nostril at onset of migraine; may repeat in 2 hours if needed for continued migraine SUMATRIPTAN 17877078694 No Longer Active Tamera Mustafa MD PhD Active ZOFRAN ODT 4 MG TBDP 1 po q6hr PRN Nausea ONDANSETRON 86328147127 No Longer Active Jr Morrow MD Active EXCEDRIN MIGRAINE 250-250-65 MG TABS 1 tab po as needed [id number] 13538624607 Active Jr Morrow MD Active ZOMIG 5 MG TABS Take 1 tablet by mouth daily as needed ZOLMITRIPTAN 73435407875 No Longer Active Jr Morrow MD Active BACTRIM DS 800-160 MG TAB 1 tab by mouth twice daily TRIMETHOPRIM-SULFAMETHOXAZOLE 70207735488 No Longer Active Tamera Mustafa MD PhD Active ZITHROMAX Z-ADALGISA 250 MG TABS 2 today, then 1 daily for 4 days 2013 AZITHROMYCIN 72469635663 No Longer Active Tor Gramajo MD Active MINOCYCLINE HCL 50 MG CAP 1 pill by mouth daily for acne MINOCYCLINE HCL 73025320112 No Longer Active Tor Gramajo MD Active AXERT 12.5 MG TABS 1 tablet by mouth at onset of migraine; may repeat x 1 if headache is still present in 2 hours ALMOTRIPTAN MALATE 62393362593 No Longer Active Tamera Mustafa MD PhD Active ELIMITE 5 % CREA Apply from head to toe including scalp and soles of feet. Wash off after 8 hours. PERMETHRIN 01667291220 No Longer Active Tamera Mustafa MD PhD Active AMOXICILLIN 500 MG TABS 2 PO bid x 10 days AMOXICILLIN 39505377710 No Longer Active Tamera Mustafa MD PhD Active MAXALT 5 MG TABS 1 pill by mouth at start of migraine; may repeat x 1 if no improvement in 2 hours RIZATRIPTAN BENZOATE 21652392188 No Longer Active Tamera Mustafa MD PhD Active BACTRIM DS 800-160 MG TAB 1 tab by mouth twice daily TRIMETHOPRIM-SULFAMETHOXAZOLE 69664031497 No Longer Active Alli Frye MD Active TRI-SPRINTEC 0.18/0.215/0.25 MG-35 MCG TABS 1 po qd as directed NORGESTIM-ETH ESTRAD TRIPHASIC 16545388126 Active Alli Frye MD Active AXERT 6.25 MG TABS 1 pill by mouth at start of migraine; may repeat x 1 in 1 hr if needed ALMOTRIPTAN MALATE 90226134864 No Longer Active Tamera Mustafa MD PhD Active GENERESS FE 0.8-25 MG-MCG CHEW 1 daily NORETHIN-ETH ESTRADIOL-FE 86219890415 No Longer Active Tamera Mustafa MD PhD Active DOXYCYCLINE HYCLATE 50 MG CAP 1 pill by mouth daily for acne 2012 DOXYCYCLINE HYCLATE 83538979548 No Longer Active Tamera Mustafa MD PhD Active AMOXICILLIN 875 MG TABS 1 TWO TIMES A DAY AMOXICILLIN 30487960938 No Longer Active Sera Mcdowell MD Active AMOXICILLIN 875 MG TABS 1 TWO TIMES A DAY AMOXICILLIN 875 MG TABS 813965 AMOXICILLIN Inactive DOXYCYCLINE HYCLATE 50 MG CAP 1 pill by mouth daily for acne 2012 DOXYCYCLINE HYCLATE 50 MG CAP 9761448 DOXYCYCLINE HYCLATE Inactive GENERESS FE 0.8-25 MG-MCG CHEW 1 daily GENERESS FE 0.8-25 MG-MCG CHEW 4267843 NORETHIN-ETH ESTRADIOL-FE Inactive AXERT 6.25 MG TABS 1 pill by mouth at start of migraine; may repeat x 1 in 1 hr if needed AXERT 6.25 MG TABS 998643 ALMOTRIPTAN MALATE Inactive MAXALT 5 MG TABS 1 pill by mouth at start of migraine; may repeat x 1 if no improvement in 2 hours MAXALT 5 MG TABS 283063 RIZATRIPTAN BENZOATE Inactive AMOXICILLIN 500 MG TABS 2 PO bid x 10 days AMOXICILLIN 500 MG TABS 073233 AMOXICILLIN Inactive ELIMITE 5 % CREA Apply from head to toe including scalp and soles of feet. Wash off after 8 hours. ELIMITE 5 % CREA 988931 PERMETHRIN Inactive AXERT 12.5 MG TABS 1 tablet by mouth at onset of migraine; may repeat x 1 if headache is still present in 2 hours AXERT 12.5 MG TABS 133329 ALMOTRIPTAN MALATE Inactive MINOCYCLINE HCL 50 MG CAP 1 pill by mouth daily for acne MINOCYCLINE HCL 50 MG CAP 571084 MINOCYCLINE HCL Inactive ZOMIG 5 MG TABS Take 1 tablet by mouth daily as needed ZOMIG 5 MG TABS 612451 ZOLMITRIPTAN Inactive ZOFRAN ODT 4 MG TBDP 1 po q6hr PRN Nausea ZOFRAN ODT 4 MG TBDP 617724 ONDANSETRON Inactive SUMATRIPTAN 20 MG/ACT SOLN 1 spray in one nostril at onset of migraine; may repeat in 2 hours if needed for continued migraine SUMATRIPTAN 20 MG/ACT SOLN 404299 SUMATRIPTAN Inactive LEVOTHYROXINE SODIUM 125 MCG ORAL TABS 1 pill by mouth daily, for thyroid LEVOTHYROXINE SODIUM 125 MCG ORAL TABS 442824 LEVOTHYROXINE SODIUM Inactive TRANSDERM-SCOP 1.5 MG TRANS PT72 1 patch every 3 days, as needed for motion sickness, start at least 4 hours hours prior to departure TRANSDERM-SCOP 1.5 MG TRANS PT72 SCOPOLAMINE BASE Inactive AMITRIPTYLINE HCL 75 MG TAB take 1 tab po qhs for migraines. 2016 AMITRIPTYLINE HCL 75 MG TAB 376492 AMITRIPTYLINE HCL Inactive MAGNESIUM OXIDE 400 MG CAPS 1 po with migraine MAGNESIUM OXIDE 400 MG CAPS 247671 MAGNESIUM OXIDE Inactive AMITRIPTYLINE HCL 50 MG ORAL TABS 1 pill by mouth nightly, for migraine prevention AMITRIPTYLINE HCL 50 MG ORAL TABS 562239 AMITRIPTYLINE HCL Inactive AMITRIPTYLINE HCL 50 MG TAB 1 po qhs for migraine AMITRIPTYLINE HCL 50 MG TAB 809726 AMITRIPTYLINE HCL Inactive ZOLOFT 50 MG TAB 1 tablet by mouth daily for mood and headache ZOLOFT 50 MG TAB 241813 SERTRALINE HCL Inactive AMITRIPTYLINE HCL 25 MG TAB 1 tab by mouth daily at bedtime 11/04 AMITRIPTYLINE HCL 25 MG TAB 857597 AMITRIPTYLINE HCL Inactive LORAZEPAM 0.5 MG TAB take 1 tab po qday prn anxiety attacks 11/04 LORAZEPAM 0.5 MG TAB 985536 LORAZEPAM Inactive ALPRAZOLAM 0.5 MG TAB take 1 tab po qday prn anxiety ALPRAZOLAM 0.5 MG TAB 121494 ALPRAZOLAM Inactive BACTRIM DS 800-160 MG TAB 1 tab by mouth twice daily BACTRIM DS 800-160 MG TAB 721990 TRIMETHOPRIM-SULFAMETHOXAZOLE Inactive ZITHROMAX Z-ADALGISA 250 MG TABS 2 today, then 1 daily for 4 days 2013 ZITHROMAX Z-ADALGISA 250 MG TABS 313791 AZITHROMYCIN Inactive BACTRIM DS 800-160 MG TAB 1 tab by mouth twice daily BACTRIM DS 800-160 MG TAB 884395 TRIMETHOPRIM-SULFAMETHOXAZOLE Inactive Advance Directives Directive Description Start Date CONSENT: MEDICATION HISTORY CONSENT FOR MINOR CARE Immunizations Vaccine Administration Date Value Standard Description Adacel (Tetanus, reduced Diphtheria, and acellular Pertussis Immunization) Adacel [[id number]] tetanus toxoid, reduced diphtheria toxoid, and acellular [...] 0.36-3.74 Encounters Code Encounter Date Provider Facility CPT-87651 Level 4 Est. Patient 23:05:57 CDT Alli Frye MD [facility] CPT-42992 Level 4 Est. Patient 12:25:34 CDT Alli Frye MD [facility]-14708 Level 4 Est. Patient 13:40:53 CDT Alli Frye MD [facility] CPT-84113 Level 4 Est. Patient 13:18:45 SECURITY GUARD DISPATCHER Alli Frye MD [facility] CPT-40065 Level 4 Est. Patient 11:32:52 SECURITY GUARD DISPATCHER Alli Frye MD [facility] CPT-49571 Level 4 Est. Patient 14:47:16 CDT Alli Frye MD [facility] CPT-42911 Level 3 Est. Patient 17:25:12 CDT Tamera Mustafa MD PhD [facility] CPT-16464 Level 3 Est. Patient 15:47:52 CDT Jr Morrow MD [facility] CPT-09410 Level 3 Est. Patient 17:07:09 SECURITY GUARD DISPATCHER Tor Gramajo MD [facility] CPT-71902 Level 3 Est. Patient 11:34:16 CDT Gerson EMANUEL [facility] CPT-93357 Level 3 Est. Patient 16:33:58 CDT Edyta Otto ADAMS [facility] CPT-11169 Level 3 Est. Patient 15:17:40 SECURITY GUARD DISPATCHER Sera Mcdowell MD [facility] CPT-84797 Level 3 Est. Patient 16:32:34 SECURITY GUARD DISPATCHER Sera Mcdowell MD [facility] Procedures Code Procedure Name Date Entry Date Standard Description CPT-67372 First Vx - Ix admin via ID IM or jet injects without counseling by physician 15:09:59 CDT CPT-55771 Menveo Intramuscular Solution Reconstituted 15:09:59 CDT CPT-26689 Meningococcal Conjugate Vacine (Menactra) 12:25:34 CDT CPT-17466 Abd compl w upright 16:06:21 CDT CPT-PV Prev. Care Visit 12:33:36 SECURITY GUARD DISPATCHER
--- OUTSIDE RECORDS SUMMARY | 2018-01-18 03:39 | XMS REPORT | Clinical Summary ---
Author Author Admin, WILBERT Organization [employer] Address Unknown Phone Unavailable Allergies, Adverse Reactions, [...] 1 tab po BID prn anxiety ALPRAZOLAM [id number] Active Alli Frye MD Active QUETIAPINE FUMARATE 25 MG ORAL TABLET take 1 tab po qhs for anxiety QUETIAPINE FUMARATE 55410476701 Active Alli Frye MD Active METOPROLOL TARTRATE 25 MG ORAL TABLET take 1 tab po daily METOPROLOL TARTRATE 71841695508 Active Alli Frye MD Active HYDROXYZINE HCL 50 MG ORAL TABLET 1 tab po BID as needed for anxiety HYDROXYZINE HCL 74615004496 No Longer Active Alli Frye MD Active ZOLOFT 100 MG ORAL TABLET take 2 tabs po qday for mood and headaches. SERTRALINE HCL 57279495451 Active Juliane Melendez LPN Active BUSPIRONE HCL 10 MG ORAL TABLET 1 TAB PO PRN BUSPIRONE HCL 01430284151 No Longer Active Juliane Melendez LPN Active ALPRAZOLAM 0.5 MG ORAL TABLET take 1 tab po qday prn anxiety 2016 ALPRAZOLAM 88190206273 No Longer Active Tatyana Lam Active LORAZEPAM 0.5 MG ORAL TABLET take 1 tab po qday prn anxiety attacks LORAZEPAM 80380327479 No Longer Active Alli Frye MD Active RANITIDINE HCL 300 MG ORAL CAPSULE 1 tablet by mouth daily prn acid reflux RANITIDINE HCL 07078658323 Active Alli Frye MD Active AMITRIPTYLINE HCL 25 MG ORAL TABLET 1 tab by mouth daily at bedtime AMITRIPTYLINE HCL 99529399259 No Longer Active Alli Frye MD Active ZOLOFT 50 MG ORAL TABLET 1 tablet by mouth daily for mood and headache 07/10 SERTRALINE HCL 70196115182 No Longer Active Alli Frye MD Active AMITRIPTYLINE HCL 50 MG ORAL TABLET 1 po qhs for migraine AMITRIPTYLINE HCL 84213565463 No Longer Active Alli Frye MD Active LEVOTHYROXINE SODIUM 112 MCG ORAL TABLET 1 pill by mouth daily for thyroid LEVOTHYROXINE SODIUM 97013173997 Active Alli Frye MD Active AMITRIPTYLINE HCL 50 MG ORAL TABLET 1 pill by mouth nightly, for migraine prevention AMITRIPTYLINE HCL 40581721929 No Longer Active Alli Frye MD Active MAGNESIUM OXIDE 400 MG ORAL CAPSULE 1 po with migraine MAGNESIUM OXIDE 74978725039 No Longer Active Alli Frye MD Active AMITRIPTYLINE HCL 75 MG ORAL TABLET take 1 tab po qhs for migraines. AMITRIPTYLINE HCL 86485446106 No Longer Active Alli Frye MD Active MULTIVITAMIN GUMMIES ADULT ORAL TABLET CHEWABLE MULTIPLE VITAMINS-MINERALS 61711955651 Active Alli Frye MD Active TRANSDERM-SCOP (1.5 MG) 1 MG/3DAYS TRANSDERMAL PATCH 72 HOUR 1 patch every 3 days, as needed for motion sickness, start at least 4 hours hours prior to departure SCOPOLAMINE BASE 90290284242 No Longer Active Alli Frye MD Active LEVOTHYROXINE SODIUM 125 MCG ORAL TABLET 1 pill by mouth daily, for thyroid LEVOTHYROXINE SODIUM 95156301283 No Longer Active Alli Frye MD Active ZOFRAN ODT 4 MG ORAL TABLET DISINTEGRATING 1 pill dissolved by mouth every 4 hours if needed for nausea ONDANSETRON 80953470535 Active Tamera Mustafa MD PhD Active SUMATRIPTAN 20 MG/ACT NASAL SOLUTION 1 spray in one nostril at onset of migraine; may repeat in 2 hours if needed for continued migraine SUMATRIPTAN 11319159799 No Longer Active Tamera Mustafa MD PhD Active ZOFRAN ODT 4 MG ORAL TABLET DISINTEGRATING 1 po q6hr PRN Nausea ONDANSETRON 54832844344 No Longer Active Jr Morrow MD Active EXCEDRIN MIGRAINE 250-250-65 MG ORAL TABLET 1 tab po as needed [id number] 75447557280 Active Jr Morrow MD Active ZOMIG 5 MG ORAL TABLET Take 1 tablet by mouth daily as needed ZOLMITRIPTAN 32443944396 No Longer Active Jr Morrow MD Active BACTRIM DS 800-160 MG ORAL TABLET 1 tab by mouth twice daily 2013 TRIMETHOPRIM-SULFAMETHOXAZOLE 32991892811 No Longer Active Tamera Mustafa MD PhD Active ZITHROMAX Z-ADALGISA 250 MG ORAL TABLET 2 today, then 1 daily for 4 days AZITHROMYCIN 91334426561 No Longer Active Tor Gramajo MD Active MINOCYCLINE HCL 50 MG ORAL CAPSULE 1 pill by mouth daily for acne MINOCYCLINE HCL 20030239938 No Longer Active Tor Gramajo MD Active AXERT 12.5 MG ORAL TABLET 1 tablet by mouth at onset of migraine; may repeat x 1 if headache is still present in 2 hours ALMOTRIPTAN MALATE 86224752916 No Longer Active Tamera Mustafa MD PhD Active ELIMITE 5 % EXTERNAL CREAM Apply from head to toe including scalp and soles of feet. Wash off after 8 hours. PERMETHRIN 56136576179 No Longer Active Tamera Mustafa MD PhD Active AMOXICILLIN 500 MG ORAL TABLET 2 PO bid x 10 days AMOXICILLIN 47842709944 No Longer Active Tamera Mustafa MD PhD Active MAXALT 5 MG ORAL TABLET 1 pill by mouth at start of migraine; may repeat x 1 if no improvement in 2 hours RIZATRIPTAN BENZOATE 93322287314 No Longer Active Tamera Mustafa MD PhD Active BACTRIM DS 800-160 MG ORAL TABLET 1 tab by mouth twice daily 2012 TRIMETHOPRIM-SULFAMETHOXAZOLE 02183912009 No Longer Active Alli Frye MD Active TRI-SPRINTEC 0.18/0.215/0.25 MG-35 MCG ORAL TABLET 1 po qd as directed 06/28 NORGESTIM-ETH ESTRAD TRIPHASIC 58407652566 Active Alli Frye MD Active AXERT 6.25 MG ORAL TABLET 1 pill by mouth at start of migraine; may repeat x 1 in 1 hr if needed ALMOTRIPTAN MALATE 20756137754 No Longer Active Tamera Mustafa MD PhD Active GENERESS FE 0.8-25 MG-MCG ORAL TABLET CHEWABLE 1 daily NORETHIN-ETH ESTRADIOL-FE 13292449617 No Longer Active Tamera Mustafa MD PhD Active DOXYCYCLINE HYCLATE 50 MG ORAL CAPSULE 1 pill by mouth daily for acne DOXYCYCLINE HYCLATE 10616157183 No Longer Active Tamera Mustafa MD PhD Active AMOXICILLIN 875 MG ORAL TABLET 1 TWO TIMES A DAY AMOXICILLIN 72085737540 No Longer Active Sera Mcdowell MD Active AMOXICILLIN 875 MG ORAL TABLET 1 TWO TIMES A DAY AMOXICILLIN 875 MG ORAL TABLET 399591 AMOXICILLIN Inactive DOXYCYCLINE HYCLATE 50 MG ORAL CAPSULE 1 pill by mouth daily for acne DOXYCYCLINE HYCLATE 50 MG ORAL CAPSULE 7446316 DOXYCYCLINE HYCLATE Inactive GENERESS FE 0.8-25 MG-MCG ORAL TABLET CHEWABLE 1 daily GENERESS FE 0.8-25 MG-MCG ORAL TABLET CHEWABLE 2512375 NORETHIN-ETH ESTRADIOL-FE Inactive AXERT 6.25 MG ORAL TABLET 1 pill by mouth at start of migraine; may repeat x 1 in 1 hr if needed AXERT 6.25 MG ORAL TABLET 191496 ALMOTRIPTAN MALATE Inactive MAXALT 5 MG ORAL TABLET 1 pill by mouth at start of migraine; may repeat x 1 if no improvement in 2 hours MAXALT 5 MG ORAL TABLET 085009 RIZATRIPTAN BENZOATE Inactive AMOXICILLIN 500 MG ORAL TABLET 2 PO bid x 10 days AMOXICILLIN 500 MG ORAL TABLET 703570 AMOXICILLIN Inactive ELIMITE 5 % EXTERNAL CREAM Apply from head to toe including scalp and soles of feet. Wash off after 8 hours. ELIMITE 5 % EXTERNAL CREAM 643508 PERMETHRIN Inactive AXERT 12.5 MG ORAL TABLET 1 tablet by mouth at onset of migraine; may repeat x 1 if headache is still present in 2 hours AXERT 12.5 MG ORAL TABLET 651631 ALMOTRIPTAN MALATE Inactive MINOCYCLINE HCL 50 MG ORAL CAPSULE 1 pill by mouth daily for acne MINOCYCLINE HCL 50 MG ORAL CAPSULE 121171 MINOCYCLINE HCL Inactive ZOMIG 5 MG ORAL TABLET Take 1 tablet by mouth daily as needed ZOMIG 5 MG ORAL TABLET 884334 ZOLMITRIPTAN Inactive ZOFRAN ODT 4 MG ORAL TABLET DISINTEGRATING 1 po q6hr PRN Nausea ZOFRAN ODT 4 MG ORAL TABLET DISINTEGRATING 407337 ONDANSETRON Inactive SUMATRIPTAN 20 MG/ACT NASAL SOLUTION 1 spray in one nostril at onset of migraine; may repeat in 2 hours if needed for continued migraine SUMATRIPTAN 20 MG/ACT NASAL SOLUTION 237617 SUMATRIPTAN Inactive LEVOTHYROXINE SODIUM 125 MCG ORAL TABLET 1 pill by mouth daily, for thyroid LEVOTHYROXINE SODIUM 125 MCG ORAL TABLET 858255 LEVOTHYROXINE SODIUM Inactive TRANSDERM-SCOP (1.5 MG) 1 MG/3DAYS TRANSDERMAL PATCH 72 HOUR 1 patch every 3 days, as needed for motion sickness, start at least 4 hours hours prior to departure TRANSDERM-SCOP (1.5 MG) 1 MG/3DAYS TRANSDERMAL PATCH 72 HOUR SCOPOLAMINE BASE Inactive AMITRIPTYLINE HCL 75 MG ORAL TABLET take 1 tab po qhs for migraines. AMITRIPTYLINE HCL 75 MG ORAL TABLET 334429 AMITRIPTYLINE HCL Inactive MAGNESIUM OXIDE 400 MG ORAL CAPSULE 1 po with migraine MAGNESIUM OXIDE 400 MG ORAL CAPSULE 528960 MAGNESIUM OXIDE Inactive AMITRIPTYLINE HCL 50 MG ORAL TABLET 1 pill by mouth nightly, for migraine prevention AMITRIPTYLINE HCL 50 MG ORAL TABLET 249767 AMITRIPTYLINE HCL Inactive AMITRIPTYLINE HCL 50 MG ORAL TABLET 1 po qhs for migraine AMITRIPTYLINE HCL 50 MG ORAL TABLET 559095 AMITRIPTYLINE HCL Inactive ZOLOFT 50 MG ORAL TABLET 1 tablet by mouth daily for mood and headache 07/10 ZOLOFT 50 MG ORAL TABLET 200053 SERTRALINE HCL Inactive AMITRIPTYLINE HCL 25 MG ORAL TABLET 1 tab by mouth daily at bedtime AMITRIPTYLINE HCL 25 MG ORAL TABLET 180395 AMITRIPTYLINE HCL Inactive LORAZEPAM 0.5 MG ORAL TABLET take 1 tab po qday prn anxiety attacks LORAZEPAM 0.5 MG ORAL TABLET 456441 LORAZEPAM Inactive ALPRAZOLAM 0.5 MG ORAL TABLET take 1 tab po qday prn anxiety 2016 ALPRAZOLAM 0.5 MG ORAL TABLET 091954 ALPRAZOLAM Inactive BUSPIRONE HCL 10 MG ORAL TABLET 1 TAB PO PRN BUSPIRONE HCL 10 MG ORAL TABLET 081650 BUSPIRONE HCL Inactive HYDROXYZINE HCL 50 MG ORAL TABLET 1 tab po BID as needed for anxiety HYDROXYZINE HCL 50 MG ORAL TABLET 121339 HYDROXYZINE HCL Inactive BACTRIM DS 800-160 MG ORAL TABLET 1 tab by mouth twice daily 2012 BACTRIM DS 800-160 MG ORAL TABLET 347711 TRIMETHOPRIM- SULFAMETHOXAZOLE Inactive ZITHROMAX Z-ADALGISA 250 MG ORAL TABLET 2 today, then 1 daily for 4 days ZITHROMAX Z-ADALGISA 250 MG ORAL TABLET 218520 AZITHROMYCIN Inactive BACTRIM DS 800-160 MG ORAL TABLET 1 tab by mouth twice daily 2013 BACTRIM DS 800-160 MG ORAL TABLET 821679 TRIMETHOPRIM- SULFAMETHOXAZOLE Inactive Advance Directives Directive Description Start Date CONSENT: MEDICATION HISTORY CONSENT FOR MINOR CARE Immunizations Vaccine Administration Date Value Standard Description Adacel (Tetanus, reduced Diphtheria, and acellular Pertussis Immunization) Adacel [[id number]] tetanus toxoid, reduced diphtheria toxoid, and acellular [...] 0.78-1.34 Encounters Code Encounter Date Provider Facility CPT-63098 Level 4 Est. Patient 15:50:37 DRIVER Alli Frye MD [facility]-65229 Level 4 Est. Patient 23:05:57 CDT Alli Frye MD [facility]-63278 Level 4 Est. Patient 12:25:34 CDT Alli Frye MD [facility]-50837 Level 4 Est. Patient 13:40:53 CDT Alli Frye MD [facility]-77419 Level 4 Est. Patient 13:18:45 DRIVER Alli Frye MD [facility]-24467 Level 4 Est. Patient 11:32:52 DRIVER Alli Frye MD [facility]-92751 Level 4 Est. Patient 14:47:16 CDT Alli Frye MD [facility]-53996 Level 3 Est. Patient 17:25:12 CDT Tamera Mustafa MD PhD [facility] CPT-16525 Level 3 Est. Patient 15:47:52 CDT Jr Morrow MD [facility] CPT-99838 Level 3 Est. Patient 17:07:09 DRIVER Tor Gramajo MD [facility] CPT-46193 Level 3 Est. Patient 11:34:16 CDT Gerson EMANUEL [facility] CPT-50780 Level 3 Est. Patient 16:33:58 CDT Edyta Otto APRN [facility] CPT-73476 Level 3 Est. Patient 15:17:40 DRIVER Sera Mcdowell MD [facility] CPT-25440 Level 3 Est. Patient 16:32:34 DRIVER Sera Mcdowell MD [facility] Procedures Code Procedure Name Date Entry Date Standard Description CPT-18638 First Vx - Ix admin via ID IM or jet injects without counseling by physician 15:09:59 CDT CPT-81256 Menveo Intramuscular Solution Reconstituted 15:09:59 CDT CPT-97463 Meningococcal Conjugate Vacine (Menactra) 12:25:34 CDT CPT-40553 Abd compl w upright 16:06:21 CDT CPT-PV Prev. Care Visit 12:33:36 DRIVER
--- OUTSIDE RECORDS SUMMARY | 2018-01-18 03:40 | XMS REPORT | Clinical Summary ---
Author Author Admin, CRISTOPHERE Organization [employer] Address Unknown Phone Unavailable Allergies, Adverse Reactions, [...] daily for mood and headache SERTRALINE HCL 17830098669 No Longer Active Alli Frye MD Active AMITRIPTYLINE HCL 50 MG TAB 1 po qhs for migraine AMITRIPTYLINE HCL 23844429636 No Longer Active Alli Frye MD Active AMITRIPTYLINE HCL 25 MG TAB 1 tab by mouth daily at bedtime AMITRIPTYLINE HCL 40132851658 Active Alli Frye MD Active ZOLOFT 100 MG TAB take 1 tab po qday for mood and headaches. SERTRALINE HCL 28208035850 Active Alli Frye MD Active LEVOTHYROXINE SODIUM 112 MCG TABS 1 pill by mouth daily for thyroid LEVOTHYROXINE SODIUM 99876272111 Active Alli Frye MD Active AMITRIPTYLINE HCL 50 MG ORAL TABS 1 pill by mouth nightly, for migraine prevention AMITRIPTYLINE HCL 77180546786 No Longer Active Alli Frye MD Active MAGNESIUM OXIDE 400 MG CAPS 1 po with migraine MAGNESIUM OXIDE 12508896364 No Longer Active Alli Frye MD Active AMITRIPTYLINE HCL 75 MG TAB take 1 tab po qhs for migraines. 2016 AMITRIPTYLINE HCL 07568691871 No Longer Active Alli Frye MD Active LORAZEPAM 0.5 MG TAB take 1 tab po qday prn anxiety attacks LORAZEPAM 01688675755 Active Alli Frye MD Active MULTIVITAMIN GUMMIES ADULT CHEW MULTIPLE VITAMINS-MINERALS 55504204091 Active Alli Frye MD Active TRANSDERM-SCOP 1.5 MG TRANS PT72 1 patch every 3 days, as needed for motion sickness, start at least 4 hours hours prior to departure SCOPOLAMINE BASE 07974407065 No Longer Active Alli Frye MD Active LEVOTHYROXINE SODIUM 125 MCG ORAL TABS 1 pill by mouth daily, for thyroid LEVOTHYROXINE SODIUM 61844842138 No Longer Active Alli Frye MD Active ZOFRAN ODT 4 MG TBDP 1 pill dissolved by mouth every 4 hours if needed for nausea ONDANSETRON 53301747958 Active Tamera Mustafa MD PhD Active SUMATRIPTAN 20 MG/ACT SOLN 1 spray in one nostril at onset of migraine; may repeat in 2 hours if needed for continued migraine SUMATRIPTAN 54007008352 No Longer Active Tamera Mustafa MD PhD Active ZOFRAN ODT 4 MG TBDP 1 po q6hr PRN Nausea ONDANSETRON 02921408550 No Longer Active Jr Morrow MD Active EXCEDRIN MIGRAINE 250-250-65 MG TABS 1 tab po as needed [id number] 01541482572 Active Jr Morrow MD Active ZOMIG 5 MG TABS Take 1 tablet by mouth daily as needed ZOLMITRIPTAN 00414166317 No Longer Active Jr Mrorow MD Active BACTRIM DS 800-160 MG TAB 1 tab by mouth twice daily TRIMETHOPRIM-SULFAMETHOXAZOLE 23311159138 No Longer Active Tamera Mustafa MD PhD Active ZITHROMAX Z-ADALGISA 250 MG TABS 2 today, then 1 daily for 4 days 2013 AZITHROMYCIN 76316865614 No Longer Active Tor Gramajo MD Active MINOCYCLINE HCL 50 MG CAP 1 pill by mouth daily for acne MINOCYCLINE HCL 32393264593 No Longer Active Tor Gramajo MD Active AXERT 12.5 MG TABS 1 tablet by mouth at onset of migraine; may repeat x 1 if headache is still present in 2 hours ALMOTRIPTAN MALATE 55843372918 No Longer Active Tamera Mustafa MD PhD Active ELIMITE 5 % CREA Apply from head to toe including scalp and soles of feet. Wash off after 8 hours. PERMETHRIN 91339619223 No Longer Active Tamera Mustafa MD PhD Active AMOXICILLIN 500 MG TABS 2 PO bid x 10 days AMOXICILLIN 81304460261 No Longer Active Tamera Mustafa MD PhD Active MAXALT 5 MG TABS 1 pill by mouth at start of migraine; may repeat x 1 if no improvement in 2 hours RIZATRIPTAN BENZOATE 75538566326 No Longer Active Tamera Mustafa MD PhD Active BACTRIM DS 800-160 MG TAB 1 tab by mouth twice daily TRIMETHOPRIM-SULFAMETHOXAZOLE 43404486230 No Longer Active Alli Frye MD Active TRI-SPRINTEC 0.18/0.215/0.25 MG-35 MCG TABS 1 po qd as directed NORGESTIM-ETH ESTRAD TRIPHASIC 42558657547 Active Alli Frye MD Active AXERT 6.25 MG TABS 1 pill by mouth at start of migraine; may repeat x 1 in 1 hr if needed ALMOTRIPTAN MALATE 30973888288 No Longer Active Tamera Mustafa MD PhD Active GENERESS FE 0.8-25 MG-MCG CHEW 1 daily NORETHIN-ETH ESTRADIOL-FE 58345683330 No Longer Active Tamera Mustafa MD PhD Active DOXYCYCLINE HYCLATE 50 MG CAP 1 pill by mouth daily for acne 2012 DOXYCYCLINE HYCLATE 84338325544 No Longer Active Tamera Mustafa MD PhD Active AMOXICILLIN 875 MG TABS 1 TWO TIMES A DAY AMOXICILLIN 48677908609 No Longer Active Sera Mcdowell MD Active AMOXICILLIN 875 MG TABS 1 TWO TIMES A DAY AMOXICILLIN 875 MG TABS 386903 AMOXICILLIN Inactive DOXYCYCLINE HYCLATE 50 MG CAP 1 pill by mouth daily for acne 2012 DOXYCYCLINE HYCLATE 50 MG CAP 2917693 DOXYCYCLINE HYCLATE Inactive GENERESS FE 0.8-25 MG-MCG CHEW 1 daily GENERESS FE 0.8-25 MG-MCG CHEW 8618285 NORETHIN-ETH ESTRADIOL-FE Inactive AXERT 6.25 MG TABS 1 pill by mouth at start of migraine; may repeat x 1 in 1 hr if needed AXERT 6.25 MG TABS 799666 ALMOTRIPTAN MALATE Inactive MAXALT 5 MG TABS 1 pill by mouth at start of migraine; may repeat x 1 if no improvement in 2 hours MAXALT 5 MG TABS 993035 RIZATRIPTAN BENZOATE Inactive AMOXICILLIN 500 MG TABS 2 PO bid x 10 days AMOXICILLIN 500 MG TABS 716307 AMOXICILLIN Inactive ELIMITE 5 % CREA Apply from head to toe including scalp and soles of feet. Wash off after 8 hours. ELIMITE 5 % CREA 829140 PERMETHRIN Inactive AXERT 12.5 MG TABS 1 tablet by mouth at onset of migraine; may repeat x 1 if headache is still present in 2 hours AXERT 12.5 MG TABS 868592 ALMOTRIPTAN MALATE Inactive MINOCYCLINE HCL 50 MG CAP 1 pill by mouth daily for acne MINOCYCLINE HCL 50 MG CAP 409083 MINOCYCLINE HCL Inactive ZOMIG 5 MG TABS Take 1 tablet by mouth daily as needed ZOMIG 5 MG TABS 604830 ZOLMITRIPTAN Inactive ZOFRAN ODT 4 MG TBDP 1 po q6hr PRN Nausea ZOFRAN ODT 4 MG TBDP 806814 ONDANSETRON Inactive SUMATRIPTAN 20 MG/ACT SOLN 1 spray in one nostril at onset of migraine; may repeat in 2 hours if needed for continued migraine SUMATRIPTAN 20 MG/ACT SOLN 194879 SUMATRIPTAN Inactive LEVOTHYROXINE SODIUM 125 MCG ORAL TABS 1 pill by mouth daily, for thyroid LEVOTHYROXINE SODIUM 125 MCG ORAL TABS 745313 LEVOTHYROXINE SODIUM Inactive TRANSDERM-SCOP 1.5 MG TRANS PT72 1 patch every 3 days, as needed for motion sickness, start at least 4 hours hours prior to departure TRANSDERM-SCOP 1.5 MG TRANS PT72 SCOPOLAMINE BASE Inactive AMITRIPTYLINE HCL 75 MG TAB take 1 tab po qhs for migraines. 2016 AMITRIPTYLINE HCL 75 MG TAB 652299 AMITRIPTYLINE HCL Inactive MAGNESIUM OXIDE 400 MG CAPS 1 po with migraine MAGNESIUM OXIDE 400 MG CAPS 202153 MAGNESIUM OXIDE Inactive AMITRIPTYLINE HCL 50 MG ORAL TABS 1 pill by mouth nightly, for migraine prevention AMITRIPTYLINE HCL 50 MG ORAL TABS 902273 AMITRIPTYLINE HCL Inactive AMITRIPTYLINE HCL 50 MG TAB 1 po qhs for migraine AMITRIPTYLINE HCL 50 MG TAB 265277 AMITRIPTYLINE HCL Inactive ZOLOFT 50 MG TAB 1 tablet by mouth daily for mood and headache ZOLOFT 50 MG TAB 973751 SERTRALINE HCL Inactive BACTRIM DS 800-160 MG TAB 1 tab by mouth twice daily BACTRIM DS 800-160 MG TAB 305719 TRIMETHOPRIM-SULFAMETHOXAZOLE Inactive ZITHROMAX Z-ADALGISA 250 MG TABS 2 today, then 1 daily for 4 days 2013 ZITHROMAX Z-ADALGISA 250 MG TABS 0771905 AZITHROMYCIN Inactive BACTRIM DS 800-160 MG TAB 1 tab by mouth twice daily BACTRIM DS 800-160 MG TAB 19820713 TRIMETHOPRIM-SULFAMETHOXAZOLE Inactive Advance Directives Directive Description Start Date CONSENT: MEDICATION HISTORY CONSENT FOR MINOR CARE Immunizations Vaccine Administration Date Value Standard Description Adacel (Tetanus, reduced Diphtheria, and acellular Pertussis Immunization) Adacel [[id number]] tetanus toxoid, reduced diphtheria toxoid, and acellular [...] Measured Encounters Code Encounter Date Provider Facility CPT-51015 Level 4 Est. Patient 13:40:53 CDT Alli Frye MD [facility] CPT-38340 Level 4 Est. Patient 13:18:45 POOLROOM TABLE ATTENDANT Alli Frye MD [facility] CPT-53995 Level 4 Est. Patient 11:32:52 POOLROOM TABLE ATTENDANT Alli Frye MD [facility] CPT-50149 Level 4 Est. Patient 14:47:16 CDT Alli Frye MD [facility] CPT-19867 Level 3 Est. Patient 17:25:12 CDT Tamera Mustafa MD [facility] CPT-39439 Level 3 Est. Patient 15:47:52 CDT Jr Morrow MD [facility] CPT-12742 Level 3 Est. Patient 17:07:09 POOLROOM TABLE ATTENDANT Tor Gramajo MD [facility] CPT-20248 Level 3 Est. Patient 11:34:16 CDT Gerson EMANUEL [facility] CPT-22273 Level 3 Est. Patient 16:33:58 CDT Edyta Otto APRN [facility] CPT-52576 Level 3 Est. Patient 15:17:40 POOLROOM TABLE ATTENDANT Sera Mcdowell MD [facility] CPT-20366 Level 3 Est. Patient 16:32:34 POOLROOM TABLE ATTENDANT Sera Mcdowell MD [facility] Procedures Code Procedure Name Date Entry Date Standard Description CPT-62535 Abd compl w upright 16:06:21 CDT CPT-PV Prev. Care Visit 12:33:36 POOLROOM TABLE ATTENDANT
--- OUTSIDE RECORDS SUMMARY | 2018-01-18 03:41 | XMS REPORT | Clinical Summary ---
Author Author Admin, CRISTOPHERE Organization [employer] Address Unknown Phone Unavailable Allergies, Adverse Reactions, [...] tab po qday prn anxiety attacks LORAZEPAM 88378106982 Active Alli Frye MD Active ZOLOFT 50 MG TAB 1 tablet by mouth daily for mood and headache SERTRALINE HCL 39680743699 Active Alli Frye MD Active AMITRIPTYLINE HCL 50 MG TAB 1 po qhs for migraine AMITRIPTYLINE HCL 15066743124 Active Alli Frye MD Active AMITRIPTYLINE HCL 75 MG TAB take 1 tab po qhs for migraines. AMITRIPTYLINE HCL 45614084055 Active Alli Frye MD Active MAGNESIUM OXIDE 400 MG CAPS 1 po with migraine MAGNESIUM OXIDE 54421124291 Active Alli Frye MD Active MULTIVITAMIN GUMMIES ADULT CHEW MULTIPLE VITAMINS-MINERALS 53505448945 Active Alli Frye MD Active TRANSDERM-SCOP 1.5 MG TRANS PT72 1 patch every 3 days, as needed for motion sickness, start at least 4 hours hours prior to departure SCOPOLAMINE BASE 38945053740 No Longer Active Alli Frye MD Active LEVOTHYROXINE SODIUM 100 MCG TABS 1 pill by mouth daily for thyroid LEVOTHYROXINE SODIUM 82221543230 Active Alli Frye MD Active LEVOTHYROXINE SODIUM 125 MCG ORAL TABS 1 pill by mouth daily, for thyroid LEVOTHYROXINE SODIUM 05770860245 No Longer Active Alli Frye MD Active AMITRIPTYLINE HCL 50 MG ORAL TABS 1 pill by mouth nightly, for migraine prevention AMITRIPTYLINE HCL 34634109568 Active Tamera Mustafa MD PhD Active ZOFRAN ODT 4 MG TBDP 1 pill dissolved by mouth every 4 hours if needed for nausea ONDANSETRON 66503531522 Active Tamera Mustafa MD PhD Active SUMATRIPTAN 20 MG/ACT SOLN 1 spray in one nostril at onset of migraine; may repeat in 2 hours if needed for continued migraine SUMATRIPTAN 15921637155 No Longer Active Tamera Mustafa MD PhD Active ZOFRAN ODT 4 MG TBDP 1 po q6hr PRN Nausea ONDANSETRON 63295284489 No Longer Active Jr Morrow MD Active EXCEDRIN MIGRAINE 250-250-65 MG TABS 1 tab po as needed [id number] 57213774928 Active Jr Morrow MD Active ZOMIG 5 MG TABS Take 1 tablet by mouth daily as needed ZOLMITRIPTAN 57845177379 No Longer Active Jr Morrow MD Active BACTRIM DS 800-160 MG TAB 1 tab by mouth twice daily TRIMETHOPRIM-SULFAMETHOXAZOLE 76720208888 No Longer Active Tamera Mustafa MD PhD Active ZITHROMAX Z-ADALGISA 250 MG TABS 2 today, then 1 daily for 4 days 2013 AZITHROMYCIN 51958834889 No Longer Active Tor Gramajo MD Active MINOCYCLINE HCL 50 MG CAP 1 pill by mouth daily for acne MINOCYCLINE HCL 59386522808 No Longer Active Tor Gramajo MD Active AXERT 12.5 MG TABS 1 tablet by mouth at onset of migraine; may repeat x 1 if headache is still present in 2 hours ALMOTRIPTAN MALATE 30766445127 No Longer Active Tamera Mustafa MD PhD Active ELIMITE 5 % CREA Apply from head to toe including scalp and soles of feet. Wash off after 8 hours. PERMETHRIN 59937539245 No Longer Active Tamera Mustafa MD PhD Active AMOXICILLIN 500 MG TABS 2 PO bid x 10 days AMOXICILLIN 93634491783 No Longer Active Tamera Mustafa MD PhD Active MAXALT 5 MG TABS 1 pill by mouth at start of migraine; may repeat x 1 if no improvement in 2 hours RIZATRIPTAN BENZOATE 18116379496 No Longer Active Tamera Mustafa MD PhD Active BACTRIM DS 800-160 MG TAB 1 tab by mouth twice daily TRIMETHOPRIM-SULFAMETHOXAZOLE 46775472263 No Longer Active Alli Frye MD Active TRI-SPRINTEC 0.18/0.215/0.25 MG-35 MCG TABS 1 po qd as directed NORGESTIM-ETH ESTRAD TRIPHASIC 18096821496 Active Alli Frye MD Active AXERT 6.25 MG TABS 1 pill by mouth at start of migraine; may repeat x 1 in 1 hr if needed ALMOTRIPTAN MALATE 52627727598 No Longer Active Tamera Mustafa MD PhD Active GENERESS FE 0.8-25 MG-MCG CHEW 1 daily NORETHIN-ETH ESTRADIOL-FE 25387232302 No Longer Active Tamera Mustafa MD PhD Active DOXYCYCLINE HYCLATE 50 MG CAP 1 pill by mouth daily for acne 2012 DOXYCYCLINE HYCLATE 38465978924 No Longer Active Tamera Mustafa MD PhD Active AMOXICILLIN 875 MG TABS 1 TWO TIMES A DAY AMOXICILLIN 83645255016 No Longer Active Sera Mcdowell MD Active AMOXICILLIN 875 MG TABS 1 TWO TIMES A DAY AMOXICILLIN 875 MG TABS 023965 AMOXICILLIN Inactive DOXYCYCLINE HYCLATE 50 MG CAP 1 pill by mouth daily for acne 2012 DOXYCYCLINE HYCLATE 50 MG CAP 4259716 DOXYCYCLINE HYCLATE Inactive GENERESS FE 0.8-25 MG-MCG CHEW 1 daily GENERESS FE 0.8-25 MG-MCG CHEW 5626526 NORETHIN-ETH ESTRADIOL-FE Inactive AXERT 6.25 MG TABS 1 pill by mouth at start of migraine; may repeat x 1 in 1 hr if needed AXERT 6.25 MG TABS 677647 ALMOTRIPTAN MALATE Inactive MAXALT 5 MG TABS 1 pill by mouth at start of migraine; may repeat x 1 if no improvement in 2 hours MAXALT 5 MG TABS 434488 RIZATRIPTAN BENZOATE Inactive AMOXICILLIN 500 MG TABS 2 PO bid x 10 days AMOXICILLIN 500 MG TABS 112045 AMOXICILLIN Inactive ELIMITE 5 % CREA Apply from head to toe including scalp and soles of feet. Wash off after 8 hours. ELIMITE 5 % CREA 476709 PERMETHRIN Inactive AXERT 12.5 MG TABS 1 tablet by mouth at onset of migraine; may repeat x 1 if headache is still present in 2 hours AXERT 12.5 MG TABS 789376 ALMOTRIPTAN MALATE Inactive MINOCYCLINE HCL 50 MG CAP 1 pill by mouth daily for acne MINOCYCLINE HCL 50 MG CAP 951983 MINOCYCLINE HCL Inactive ZOMIG 5 MG TABS Take 1 tablet by mouth daily as needed ZOMIG 5 MG TABS 163451 ZOLMITRIPTAN Inactive ZOFRAN ODT 4 MG TBDP 1 po q6hr PRN Nausea ZOFRAN ODT 4 MG TBDP 814422 ONDANSETRON Inactive SUMATRIPTAN 20 MG/ACT SOLN 1 spray in one nostril at onset of migraine; may repeat in 2 hours if needed for continued migraine SUMATRIPTAN 20 MG/ACT SOLN 490468 SUMATRIPTAN Inactive LEVOTHYROXINE SODIUM 125 MCG ORAL TABS 1 pill by mouth daily, for thyroid LEVOTHYROXINE SODIUM 125 MCG ORAL TABS 322346 LEVOTHYROXINE SODIUM Inactive TRANSDERM-SCOP 1.5 MG TRANS PT72 1 patch every 3 days, as needed for motion sickness, start at least 4 hours hours prior to departure TRANSDERM-SCOP 1.5 MG TRANS PT72 SCOPOLAMINE BASE Inactive BACTRIM DS 800-160 MG TAB 1 tab by mouth twice daily BACTRIM DS 800-160 MG TAB 530432 TRIMETHOPRIM-SULFAMETHOXAZOLE Inactive ZITHROMAX Z-ADALGISA 250 MG TABS 2 today, then 1 daily for 4 days 2013 ZITHROMAX Z-ADALGISA 250 MG TABS 1752622 AZITHROMYCIN Inactive BACTRIM DS 800-160 MG TAB 1 tab by mouth twice daily BACTRIM DS 800-160 MG TAB 151688 TRIMETHOPRIM-SULFAMETHOXAZOLE Inactive Advance Directives Directive Description Start Date CONSENT: MEDICATION HISTORY CONSENT FOR MINOR CARE Immunizations Vaccine Administration Date Value Standard Description Adacel (Tetanus, reduced Diphtheria, and acellular Pertussis Immunization) Adacel [[id number]] tetanus toxoid, reduced diphtheria toxoid, and acellular [...] Measured Encounters Code Encounter Date Provider Facility CPT-92776 Level 4 Est. Patient 13:18:45 CERAMIC PAINTER Alli Frye MD [facility] CPT-37899 Level 4 Est. Patient 11:32:52 CERAMIC PAINTER Alli Frye MD [facility] CPT-49487 Level 4 Est. Patient 14:47:16 CDT Alli Frye MD [facility] CPT-54833 Level 3 Est. Patient 17:25:12 CDT Tamera Mustafa MD PhD [facility] CPT-46358 Level 3 Est. Patient 15:47:52 CDT Jr Morrow MD [facility] CPT-70833 Level 3 Est. Patient 17:07:09 CERAMIC PAINTER Tor Gramajo MD [facility] CPT-01798 Level 3 Est. Patient 11:34:16 CDT Gerson EMANUEL [facility] CPT-19566 Level 3 Est. Patient 16:33:58 CDT Edyta Otto APRN [facility] CPT-53944 Level 3 Est. Patient 15:17:40 CERAMIC PAINTER Sera Mcdowell MD [facility] CPT-42144 Level 3 Est. Patient 16:32:34 CERAMIC PAINTER Sera Mcdowell MD [facility] Procedures Code Procedure Name Date Entry Date Standard Description CPT-08362 Abd compl w upright 16:06:21 CDT CPT-PV Prev. Care Visit 12:33:36 CERAMIC PAINTER
--- OUTSIDE RECORDS SUMMARY | 2018-01-18 03:41 | XMS REPORT | Clinical Summary ---
Author Author Admin, WILBERT Organization [email or web address] Address Unknown Phone Unavailable Allergies, Adverse Reactions, [...] advice on contraceptive management Hematuria 599.70 Active aTtyana Lam Hematuria, unspecified ANXIETY 300.00 Active Alli [...] daily for mood and headache SERTRALINE HCL 75769120678 No Longer Active Alli Frye MD Active AMITRIPTYLINE HCL 50 MG TAB 1 po qhs for migraine AMITRIPTYLINE HCL 59713614421 No Longer Active Alli Frye MD Active AMITRIPTYLINE HCL 25 MG TAB 1 tab by mouth daily at bedtime AMITRIPTYLINE HCL 15289993960 Active Alli Frye MD Active ZOLOFT 100 MG TAB take 1 tab po qday for mood and headaches. SERTRALINE HCL 38658343638 Active Alli Frye MD Active LEVOTHYROXINE SODIUM 112 MCG TABS 1 pill by mouth daily for thyroid LEVOTHYROXINE SODIUM 27729103443 Active Alli Frye MD Active AMITRIPTYLINE HCL 50 MG ORAL TABS 1 pill by mouth nightly, for migraine prevention AMITRIPTYLINE HCL 71829209346 No Longer Active Alli Frye MD Active MAGNESIUM OXIDE 400 MG CAPS 1 po with migraine MAGNESIUM OXIDE 36189223174 No Longer Active Alli Frye MD Active AMITRIPTYLINE HCL 75 MG TAB take 1 tab po qhs for migraines. 2016 AMITRIPTYLINE HCL 05152694661 No Longer Active Alli Frye MD Active LORAZEPAM 0.5 MG TAB take 1 tab po qday prn anxiety attacks LORAZEPAM 18091069176 Active Alli Frye MD Active MULTIVITAMIN GUMMIES ADULT CHEW MULTIPLE VITAMINS-MINERALS 01231691803 Active Alli Frye MD Active TRANSDERM-SCOP 1.5 MG TRANS PT72 1 patch every 3 days, as needed for motion sickness, start at least 4 hours hours prior to departure SCOPOLAMINE BASE 96823843453 No Longer Active Alli Frye MD Active LEVOTHYROXINE SODIUM 125 MCG ORAL TABS 1 pill by mouth daily, for thyroid LEVOTHYROXINE SODIUM 53658998414 No Longer Active Alli Frye MD Active ZOFRAN ODT 4 MG TBDP 1 pill dissolved by mouth every 4 hours if needed for nausea ONDANSETRON 80541753356 Active Tamera Mustafa MD PhD Active SUMATRIPTAN 20 MG/ACT SOLN 1 spray in one nostril at onset of migraine; may repeat in 2 hours if needed for continued migraine SUMATRIPTAN 17290985428 No Longer Active Tamera Mustafa MD PhD Active ZOFRAN ODT 4 MG TBDP 1 po q6hr PRN Nausea ONDANSETRON 52900315200 No Longer Active Jr Morrow MD Active EXCEDRIN MIGRAINE 250-250-65 MG TABS 1 tab po as needed [id number] 59566003976 Active Jr Morrow MD Active ZOMIG 5 MG TABS Take 1 tablet by mouth daily as needed ZOLMITRIPTAN 56294820797 No Longer Active Jr Morrow MD Active BACTRIM DS 800-160 MG TAB 1 tab by mouth twice daily TRIMETHOPRIM-SULFAMETHOXAZOLE 83584758667 No Longer Active Tamera Mustafa MD PhD Active ZITHROMAX Z-ADALGISA 250 MG TABS 2 today, then 1 daily for 4 days 2013 AZITHROMYCIN 84297375868 No Longer Active Tor Gramajo MD Active MINOCYCLINE HCL 50 MG CAP 1 pill by mouth daily for acne MINOCYCLINE HCL 09128645235 No Longer Active Tor Gramajo MD Active AXERT 12.5 MG TABS 1 tablet by mouth at onset of migraine; may repeat x 1 if headache is still present in 2 hours ALMOTRIPTAN MALATE 47039692730 No Longer Active Tamera Mustafa MD PhD Active ELIMITE 5 % CREA Apply from head to toe including scalp and soles of feet. Wash off after 8 hours. PERMETHRIN 71222752024 No Longer Active Tamera Mustafa MD PhD Active AMOXICILLIN 500 MG TABS 2 PO bid x 10 days AMOXICILLIN 80819914038 No Longer Active Tamera Mustafa MD PhD Active MAXALT 5 MG TABS 1 pill by mouth at start of migraine; may repeat x 1 if no improvement in 2 hours RIZATRIPTAN BENZOATE 70836175657 No Longer Active Tamera Mustafa MD PhD Active BACTRIM DS 800-160 MG TAB 1 tab by mouth twice daily TRIMETHOPRIM-SULFAMETHOXAZOLE 46084378450 No Longer Active Alli Frye MD Active TRI-SPRINTEC 0.18/0.215/0.25 MG-35 MCG TABS 1 po qd as directed NORGESTIM-ETH ESTRAD TRIPHASIC 92576837227 Active Alli Frye MD Active AXERT 6.25 MG TABS 1 pill by mouth at start of migraine; may repeat x 1 in 1 hr if needed ALMOTRIPTAN MALATE 05084832524 No Longer Active Tamera Mustafa MD PhD Active GENERESS FE 0.8-25 MG-MCG CHEW 1 daily NORETHIN-ETH ESTRADIOL-FE 73834227669 No Longer Active Tamera Mustafa MD PhD Active DOXYCYCLINE HYCLATE 50 MG CAP 1 pill by mouth daily for acne 2012 DOXYCYCLINE HYCLATE 80591291393 No Longer Active Tamear Mustafa MD PhD Active AMOXICILLIN 875 MG TABS 1 TWO TIMES A DAY AMOXICILLIN 24898774468 No Longer Active Sera Mcdowell MD Active AMOXICILLIN 875 MG TABS 1 TWO TIMES A DAY AMOXICILLIN 875 MG TABS 920827 AMOXICILLIN Inactive DOXYCYCLINE HYCLATE 50 MG CAP 1 pill by mouth daily for acne 2012 DOXYCYCLINE HYCLATE 50 MG CAP 9884185 DOXYCYCLINE HYCLATE Inactive GENERESS FE 0.8-25 MG-MCG CHEW 1 daily GENERESS FE 0.8-25 MG-MCG CHEW 7419407 NORETHIN-ETH ESTRADIOL-FE Inactive AXERT 6.25 MG TABS 1 pill by mouth at start of migraine; may repeat x 1 in 1 hr if needed AXERT 6.25 MG TABS 027585 ALMOTRIPTAN MALATE Inactive MAXALT 5 MG TABS 1 pill by mouth at start of migraine; may repeat x 1 if no improvement in 2 hours MAXALT 5 MG TABS 629690 RIZATRIPTAN BENZOATE Inactive AMOXICILLIN 500 MG TABS 2 PO bid x 10 days AMOXICILLIN 500 MG TABS 092312 AMOXICILLIN Inactive ELIMITE 5 % CREA Apply from head to toe including scalp and soles of feet. Wash off after 8 hours. ELIMITE 5 % CREA 278233 PERMETHRIN Inactive AXERT 12.5 MG TABS 1 tablet by mouth at onset of migraine; may repeat x 1 if headache is still present in 2 hours AXERT 12.5 MG TABS 985349 ALMOTRIPTAN MALATE Inactive MINOCYCLINE HCL 50 MG CAP 1 pill by mouth daily for acne MINOCYCLINE HCL 50 MG CAP 968749 MINOCYCLINE HCL Inactive ZOMIG 5 MG TABS Take 1 tablet by mouth daily as needed ZOMIG 5 MG TABS 576032 ZOLMITRIPTAN Inactive ZOFRAN ODT 4 MG TBDP 1 po q6hr PRN Nausea ZOFRAN ODT 4 MG TBDP 035136 ONDANSETRON Inactive SUMATRIPTAN 20 MG/ACT SOLN 1 spray in one nostril at onset of migraine; may repeat in 2 hours if needed for continued migraine SUMATRIPTAN 20 MG/ACT SOLN 950415 SUMATRIPTAN Inactive LEVOTHYROXINE SODIUM 125 MCG ORAL TABS 1 pill by mouth daily, for thyroid LEVOTHYROXINE SODIUM 125 MCG ORAL TABS 389762 LEVOTHYROXINE SODIUM Inactive TRANSDERM-SCOP 1.5 MG TRANS PT72 1 patch every 3 days, as needed for motion sickness, start at least 4 hours hours prior to departure TRANSDERM-SCOP 1.5 MG TRANS PT72 SCOPOLAMINE BASE Inactive AMITRIPTYLINE HCL 75 MG TAB take 1 tab po qhs for migraines. 2016 AMITRIPTYLINE HCL 75 MG TAB 187412 AMITRIPTYLINE HCL Inactive MAGNESIUM OXIDE 400 MG CAPS 1 po with migraine MAGNESIUM OXIDE 400 MG CAPS 817130 MAGNESIUM OXIDE Inactive AMITRIPTYLINE HCL 50 MG ORAL TABS 1 pill by mouth nightly, for migraine prevention AMITRIPTYLINE HCL 50 MG ORAL TABS 007388 AMITRIPTYLINE HCL Inactive AMITRIPTYLINE HCL 50 MG TAB 1 po qhs for migraine AMITRIPTYLINE HCL 50 MG TAB 705005 AMITRIPTYLINE HCL Inactive ZOLOFT 50 MG TAB 1 tablet by mouth daily for mood and headache ZOLOFT 50 MG TAB 332982 SERTRALINE HCL Inactive BACTRIM DS 800-160 MG TAB 1 tab by mouth twice daily BACTRIM DS 800-160 MG TAB 035903 TRIMETHOPRIM-SULFAMETHOXAZOLE Inactive ZITHROMAX Z-ADALGISA 250 MG TABS 2 today, then 1 daily for 4 days 2013 ZITHROMAX Z-ADALGISA 250 MG TABS 8832881 AZITHROMYCIN Inactive BACTRIM DS 800-160 MG TAB 1 tab by mouth twice daily BACTRIM DS 800-160 MG TAB [id number] TRIMETHOPRIM-SULFAMETHOXAZOLE Inactive Advance Directives Directive Description Start Date CONSENT: MEDICATION HISTORY CONSENT FOR MINOR CARE Immunizations Vaccine Administration Date Value Standard Description Adacel (Tetanus, reduced Diphtheria, and acellular Pertussis Immunization) Adacel [[id number]] tetanus toxoid, reduced diphtheria toxoid, and acellular [...] Measured Encounters Code Encounter Date Provider Facility CPT-80599 Level 4 Est. Patient 13:40:53 CDT Alli Frye MD [facility] CPT-99890 Level 4 Est. Patient 13:18:45 DIGITAL CONTROLS TECHNICAL OFFICER Alli Frye MD [facility] CPT-02840 Level 4 Est. Patient 11:32:52 DIGITAL CONTROLS TECHNICAL OFFICER Alli Frye MD [facility] CPT-21727 Level 4 Est. Patient 14:47:16 CDT Alli Frye MD [facility] CPT-68480 Level 3 Est. Patient 17:25:12 CDT Tamera Mustafa MD PhD [facility] CPT-39764 Level 3 Est. Patient 15:47:52 CDT Jr Morrow MD [facility] -[facility] CPT-82518 Level 3 Est. Patient 17:07:09 DIGITAL CONTROLS TECHNICAL OFFICER Tor Gramajo MD [facility] CPT-84497 Level 3 Est. Patient 11:34:16 CDT Gerson EMANUEL [facility] CPT-22450 Level 3 Est. Patient 16:33:58 CDT Edyta Otto APRN [facility] CPT-76725 Level 3 Est. Patient 15:17:40 DIGITAL CONTROLS TECHNICAL OFFICER Sera Mcdowell MD [facility] CPT-80193 Level 3 Est. Patient 16:32:34 DIGITAL CONTROLS TECHNICAL OFFICER Sera Mcdowell MD [facility] Procedures Code Procedure Name Date Entry Date Standard Description CPT-74956 Abd compl w upright 16:06:21 CDT CPT-PV Prev. Care Visit 12:33:36 DIGITAL CONTROLS TECHNICAL OFFICER
--- OUTSIDE RECORDS SUMMARY | 2018-01-18 03:42 | XMS REPORT | Clinical Summary ---
Author Author Admin, WILBERT Organization [employer] Address Unknown Phone Unavailable Allergies, Adverse Reactions, [...] 1 tab po qday prn anxiety ALPRAZOLAM 09708939384 Active Alli Frye MD Active LORAZEPAM 0.5 MG TAB take 1 tab po qday prn anxiety attacks 11/04 LORAZEPAM 28942202854 No Longer Active Alli Frye MD Active RANITIDINE HCL 300 MG CAPS 1 tablet by mouth daily prn acid reflux RANITIDINE HCL 73827409093 Active Alli Frye MD Active METOPROLOL TARTRATE 25 MG ORAL TABS take 1 tab po BID METOPROLOL TARTRATE 05930316667 Active Alli Frye MD Active AMITRIPTYLINE HCL 25 MG TAB 1 tab by mouth daily at bedtime 11/04 AMITRIPTYLINE HCL 24769080453 No Longer Active Alli Frye MD Active ZOLOFT 50 MG TAB 1 tablet by mouth daily for mood and headache SERTRALINE HCL 39230186605 No Longer Active Alli Frye MD Active AMITRIPTYLINE HCL 50 MG TAB 1 po qhs for migraine AMITRIPTYLINE HCL 78097673867 No Longer Active Alli Frye MD Active ZOLOFT 100 MG TAB take 1 tab po qday for mood and headaches. SERTRALINE HCL 74722410152 Active Alli Frye MD Active LEVOTHYROXINE SODIUM 112 MCG TABS 1 pill by mouth daily for thyroid LEVOTHYROXINE SODIUM 97558723995 Active Alli Frye MD Active AMITRIPTYLINE HCL 50 MG ORAL TABS 1 pill by mouth nightly, for migraine prevention AMITRIPTYLINE HCL 55797079752 No Longer Active Alli Frye MD Active MAGNESIUM OXIDE 400 MG CAPS 1 po with migraine MAGNESIUM OXIDE 59117410927 No Longer Active Alli Frye MD Active AMITRIPTYLINE HCL 75 MG TAB take 1 tab po qhs for migraines. 2016 AMITRIPTYLINE HCL 36643600611 No Longer Active Alli Frye MD Active MULTIVITAMIN GUMMIES ADULT CHEW MULTIPLE VITAMINS-MINERALS 45123701922 Active Alli Frye MD Active TRANSDERM-SCOP 1.5 MG TRANS PT72 1 patch every 3 days, as needed for motion sickness, start at least 4 hours hours prior to departure SCOPOLAMINE BASE 73426635198 No Longer Active Alli Frye MD Active LEVOTHYROXINE SODIUM 125 MCG ORAL TABS 1 pill by mouth daily, for thyroid LEVOTHYROXINE SODIUM 23702454454 No Longer Active Alli Frye MD Active ZOFRAN ODT 4 MG TBDP 1 pill dissolved by mouth every 4 hours if needed for nausea ONDANSETRON 18565509183 Active Tamera Mustafa MD PhD Active SUMATRIPTAN 20 MG/ACT SOLN 1 spray in one nostril at onset of migraine; may repeat in 2 hours if needed for continued migraine SUMATRIPTAN 18781879380 No Longer Active Tamera Mustafa MD PhD Active ZOFRAN ODT 4 MG TBDP 1 po q6hr PRN Nausea ONDANSETRON 25147840546 No Longer Active Jr Morrow MD Active EXCEDRIN MIGRAINE 250-250-65 MG TABS 1 tab po as needed [id number] 94867992796 Active Jr Morrow MD Active ZOMIG 5 MG TABS Take 1 tablet by mouth daily as needed ZOLMITRIPTAN 79738860773 No Longer Active Jr Morrow MD Active BACTRIM DS 800-160 MG TAB 1 tab by mouth twice daily TRIMETHOPRIM-SULFAMETHOXAZOLE 95454137540 No Longer Active Tamera Mustafa MD PhD Active ZITHROMAX Z-ADALGISA 250 MG TABS 2 today, then 1 daily for 4 days 2013 AZITHROMYCIN 24746285430 No Longer Active Tor Gramajo MD Active MINOCYCLINE HCL 50 MG CAP 1 pill by mouth daily for acne MINOCYCLINE HCL 21273837197 No Longer Active Tor Gramajo MD Active AXERT 12.5 MG TABS 1 tablet by mouth at onset of migraine; may repeat x 1 if headache is still present in 2 hours ALMOTRIPTAN MALATE 08310517284 No Longer Active Tamera Mustafa MD PhD Active ELIMITE 5 % CREA Apply from head to toe including scalp and soles of feet. Wash off after 8 hours. PERMETHRIN 52403788386 No Longer Active Tamera Mustafa MD PhD Active AMOXICILLIN 500 MG TABS 2 PO bid x 10 days AMOXICILLIN 95230201354 No Longer Active Tamera Mustafa MD PhD Active MAXALT 5 MG TABS 1 pill by mouth at start of migraine; may repeat x 1 if no improvement in 2 hours RIZATRIPTAN BENZOATE 31862685731 No Longer Active Tamera Mustafa MD PhD Active BACTRIM DS 800-160 MG TAB 1 tab by mouth twice daily TRIMETHOPRIM-SULFAMETHOXAZOLE 32064924995 No Longer Active Alli Frye MD Active TRI-SPRINTEC 0.18/0.215/0.25 MG-35 MCG TABS 1 po qd as directed NORGESTIM-ETH ESTRAD TRIPHASIC 57176558978 Active Alli Frye MD Active AXERT 6.25 MG TABS 1 pill by mouth at start of migraine; may repeat x 1 in 1 hr if needed ALMOTRIPTAN MALATE 13617844381 No Longer Active Tamera Mustafa MD PhD Active GENERESS FE 0.8-25 MG-MCG CHEW 1 daily NORETHIN-ETH ESTRADIOL-FE 89220634537 No Longer Active Tamera Mustafa MD PhD Active DOXYCYCLINE HYCLATE 50 MG CAP 1 pill by mouth daily for acne 2012 DOXYCYCLINE HYCLATE 13754866319 No Longer Active Tamera Mustafa MD PhD Active AMOXICILLIN 875 MG TABS 1 TWO TIMES A DAY AMOXICILLIN 08417313870 No Longer Active Sera Mcdowell MD Active AMOXICILLIN 875 MG TABS 1 TWO TIMES A DAY AMOXICILLIN 875 MG TABS 384489 AMOXICILLIN Inactive DOXYCYCLINE HYCLATE 50 MG CAP 1 pill by mouth daily for acne 2012 DOXYCYCLINE HYCLATE 50 MG CAP 1664869 DOXYCYCLINE HYCLATE Inactive GENERESS FE 0.8-25 MG-MCG CHEW 1 daily GENERESS FE 0.8-25 MG-MCG CHEW 1127169 NORETHIN-ETH ESTRADIOL-FE Inactive AXERT 6.25 MG TABS 1 pill by mouth at start of migraine; may repeat x 1 in 1 hr if needed AXERT 6.25 MG TABS 874548 ALMOTRIPTAN MALATE Inactive MAXALT 5 MG TABS 1 pill by mouth at start of migraine; may repeat x 1 if no improvement in 2 hours MAXALT 5 MG TABS 014313 RIZATRIPTAN BENZOATE Inactive AMOXICILLIN 500 MG TABS 2 PO bid x 10 days AMOXICILLIN 500 MG TABS 994814 AMOXICILLIN Inactive ELIMITE 5 % CREA Apply from head to toe including scalp and soles of feet. Wash off after 8 hours. ELIMITE 5 % CREA 688294 PERMETHRIN Inactive AXERT 12.5 MG TABS 1 tablet by mouth at onset of migraine; may repeat x 1 if headache is still present in 2 hours AXERT 12.5 MG TABS 021699 ALMOTRIPTAN MALATE Inactive MINOCYCLINE HCL 50 MG CAP 1 pill by mouth daily for acne MINOCYCLINE HCL 50 MG CAP 824927 MINOCYCLINE HCL Inactive ZOMIG 5 MG TABS Take 1 tablet by mouth daily as needed ZOMIG 5 MG TABS 479433 ZOLMITRIPTAN Inactive ZOFRAN ODT 4 MG TBDP 1 po q6hr PRN Nausea ZOFRAN ODT 4 MG TBDP 498388 ONDANSETRON Inactive SUMATRIPTAN 20 MG/ACT SOLN 1 spray in one nostril at onset of migraine; may repeat in 2 hours if needed for continued migraine SUMATRIPTAN 20 MG/ACT SOLN 435184 SUMATRIPTAN Inactive LEVOTHYROXINE SODIUM 125 MCG ORAL TABS 1 pill by mouth daily, for thyroid LEVOTHYROXINE SODIUM 125 MCG ORAL TABS 435842 LEVOTHYROXINE SODIUM Inactive TRANSDERM-SCOP 1.5 MG TRANS PT72 1 patch every 3 days, as needed for motion sickness, start at least 4 hours hours prior to departure TRANSDERM-SCOP 1.5 MG TRANS PT72 SCOPOLAMINE BASE Inactive AMITRIPTYLINE HCL 75 MG TAB take 1 tab po qhs for migraines. 2016 AMITRIPTYLINE HCL 75 MG TAB 551606 AMITRIPTYLINE HCL Inactive MAGNESIUM OXIDE 400 MG CAPS 1 po with migraine MAGNESIUM OXIDE 400 MG CAPS 214860 MAGNESIUM OXIDE Inactive AMITRIPTYLINE HCL 50 MG ORAL TABS 1 pill by mouth nightly, for migraine prevention AMITRIPTYLINE HCL 50 MG ORAL TABS 719571 AMITRIPTYLINE HCL Inactive AMITRIPTYLINE HCL 50 MG TAB 1 po qhs for migraine AMITRIPTYLINE HCL 50 MG TAB 413024 AMITRIPTYLINE HCL Inactive ZOLOFT 50 MG TAB 1 tablet by mouth daily for mood and headache ZOLOFT 50 MG TAB 369113 SERTRALINE HCL Inactive AMITRIPTYLINE HCL 25 MG TAB 1 tab by mouth daily at bedtime 11/04 AMITRIPTYLINE HCL 25 MG TAB 219736 AMITRIPTYLINE HCL Inactive LORAZEPAM 0.5 MG TAB take 1 tab po qday prn anxiety attacks 11/04 LORAZEPAM 0.5 MG TAB 515244 LORAZEPAM Inactive BACTRIM DS 800-160 MG TAB 1 tab by mouth twice daily BACTRIM DS 800-160 MG TAB 197672 TRIMETHOPRIM-SULFAMETHOXAZOLE Inactive ZITHROMAX Z-ADALGISA 250 MG TABS 2 today, then 1 daily for 4 days 2013 ZITHROMAX Z-ADALGISA 250 MG TABS 9125940 AZITHROMYCIN Inactive BACTRIM DS 800-160 MG TAB 1 tab by mouth twice daily BACTRIM DS 800-160 MG TAB 19820713 TRIMETHOPRIM-SULFAMETHOXAZOLE Inactive Advance Directives Directive Description Start Date CONSENT: MEDICATION HISTORY CONSENT FOR MINOR CARE Immunizations Vaccine Administration Date Value Standard Description Adacel (Tetanus, reduced Diphtheria, and acellular Pertussis Immunization) Adacel [[id number]] tetanus toxoid, reduced diphtheria toxoid, and acellular [...] E&M - 3141-9 149 [lb_av] Weight Measured Diagnostic Results Date Name Value Unit Range Description Lab Report: Free Thyroxine (L), Thyroid Stimulating Hormone (L) - Chemistry thyroxine, serum, free 1.42 ng/dL 0.78-1.34 TSH 1.28 m[iU]/mL 0.36-3.74 Encounters Code Encounter Date Provider Facility CPT-20188 Level 4 Est. Patient 12:25:34 CDT Alli Frye MD [facility] CPT-69402 Level 4 Est. Patient 13:40:53 CDT Alli Frye MD [facility] CPT-36987 Level 4 Est. 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 Patient 11:32:52 [employer] TRUCK DRIVER Alli Frye MD [facility] CPT-04275 Level 4 Est. Patient 14:47:16 CDT Alli Frye MD [facility] CPT-18170 Level 3 Est. Patient 17:25:12 CDT Tamera Mustafa MD PhD [facility] CPT-30249 Level 3 Est. Patient 15:47:52 CDT Jr Morrow MD [facility] CPT-31643 Level 3 Est. 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 CPT-52016 Level 3 Est. Patient 11:34:[address] [facility] CPT-41480 Level 3 Est. Patient 16:33:58 CDT Edyta Otto APRN [facility] CPT-28141 Level 3 Est. Patient 15:17:40 [employer] HA[employer] TRUCK DRIVER Sera Mcdowell MD [facility] CPT-67760 Level 3 Est. Patient 16:32:34 [employer] TRUCK DRIVER Sera Mcdowell MD [facility] Procedures Code Procedure Name Date Entry Date Standard Description CPT-88960 First Vx - Ix admin via ID IM or jet injects without counseling by physician 15:09:59 CDT CPT-67597 Menveo Intramuscular Solution Reconstituted 15:09:59 CDT CPT-06085 Meningococcal Conjugate Vacine (Menactra) 12:25:34 CDT CPT-33660 Abd compl w upright 16:06:21 CDT CPT-PV Prev. 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
--- OUTSIDE RECORDS SUMMARY | 2018-01-18 03:44 | XMS REPORT | Clinical Summary ---
Author Author Admin, WILBERT Organization [facility] Address Unknown Phone Unavailable Allergies, Adverse [...] hours hours prior to departure SCOPOLAMINE BASE 97343111607 Active Tamera Mustafa MD PhD Active ZOFRAN ODT 4 MG TBDP 1 pill dissolved by mouth every 4 hours if needed for nausea ONDANSETRON 14258579273 Active Tamera Mustafa MD PhD Active AMITRIPTYLINE HCL 25 MG ORAL TABS 1 pill by mouth nightly, for migraine prevention AMITRIPTYLINE HCL 81786354018 Active Tamera Mustafa MD PhD Active LEVOTHYROXINE SODIUM 100 MCG ORAL TABS 1 tab by mouth daily LEVOTHYROXINE SODIUM 50351390217 Active Tamera Mustafa MD PhD Active SUMATRIPTAN 20 MG/ACT SOLN 1 spray in one nostril at onset of migraine; may repeat in 2 hours if needed for continued migraine SUMATRIPTAN 99502345586 No Longer Active Tamera Mustafa MD PhD Active ZOFRAN ODT 4 MG TBDP 1 po q6hr PRN Nausea ONDANSETRON 58850055559 No Longer Active Jr Morrow MD Active EXCEDRIN MIGRAINE 250-250-65 MG TABS 1 tab po as needed [id number] 15070396433 Active Jr Morrow MD Active ZOMIG 5 MG TABS Take 1 tablet by mouth daily as needed ZOLMITRIPTAN 90251826792 No Longer Active Jr Morrow MD Active BACTRIM DS 800-160 MG TAB 1 tab by mouth twice daily TRIMETHOPRIM-SULFAMETHOXAZOLE 81857682975 No Longer Active Tamera Mustafa MD PhD Active ZITHROMAX Z-ADALGISA 250 MG TABS 2 today, then 1 daily for 4 days 2013 AZITHROMYCIN 43927485001 No Longer Active Tor Gramajo MD Active MINOCYCLINE HCL 50 MG CAP 1 pill by mouth daily for acne MINOCYCLINE HCL 22696384456 No Longer Active Tor Gramajo MD Active AXERT 12.5 MG TABS 1 tablet by mouth at onset of migraine; may repeat x 1 if headache is still present in 2 hours ALMOTRIPTAN MALATE 24048533533 No Longer Active Tamera Mustafa MD PhD Active ELIMITE 5 % CREA Apply from head to toe including scalp and soles of feet. Wash off after 8 hours. PERMETHRIN 30755605608 No Longer Active Tamera Mustafa MD PhD Active AMOXICILLIN 500 MG TABS 2 PO bid x 10 days AMOXICILLIN 00497277098 No Longer Active Tamera Mustafa MD PhD Active MAXALT 5 MG TABS 1 pill by mouth at start of migraine; may repeat x 1 if no improvement in 2 hours RIZATRIPTAN BENZOATE 94992929606 No Longer Active Tamera Mustafa MD PhD Active BACTRIM DS 800-160 MG TAB 1 tab by mouth twice daily TRIMETHOPRIM-SULFAMETHOXAZOLE 43350311890 No Longer Active Alli Frye MD Active TRI-SPRINTEC 0.18/0.215/0.25 MG-35 MCG TABS 1 po qd as directed NORGESTIM-ETH ESTRAD TRIPHASIC 81198117531 Active Gerson EMANUEL Active AXERT 6.25 MG TABS 1 pill by mouth at start of migraine; may repeat x 1 in 1 hr if needed ALMOTRIPTAN MALATE 71507028668 No Longer Active Tamera Mustafa MD PhD Active GENERESS FE 0.8-25 MG-MCG CHEW 1 daily NORETHIN-ETH ESTRADIOL-FE 01326694453 No Longer Active Tamera Mustafa MD PhD Active DOXYCYCLINE HYCLATE 50 MG CAP 1 pill by mouth daily for acne 2012 DOXYCYCLINE HYCLATE 82729615458 No Longer Active Tamera Mustafa MD PhD Active AMOXICILLIN 875 MG TABS 1 TWO TIMES A DAY AMOXICILLIN 07775075752 No Longer Active Sera Mcdowell MD Active AMOXICILLIN 875 MG TABS 1 TWO TIMES A DAY AMOXICILLIN 875 MG TABS 877575 AMOXICILLIN Inactive DOXYCYCLINE HYCLATE 50 MG CAP 1 pill by mouth daily for acne 2012 DOXYCYCLINE HYCLATE 50 MG CAP 258604 DOXYCYCLINE HYCLATE Inactive GENERESS FE 0.8-25 MG-MCG [...] in 2 hours MAXALT 5 MG TABS 797496 RIZATRIPTAN BENZOATE Inactive AMOXICILLIN 500 MG TABS 2 PO bid x 10 days AMOXICILLIN 500 MG TABS 810298 AMOXICILLIN Inactive ELIMITE 5 % CREA Apply from head to toe including scalp and soles of feet. Wash off after 8 hours. ELIMITE 5 % CREA 841159 PERMETHRIN Inactive AXERT 12.5 MG TABS 1 tablet by mouth at onset of migraine; may repeat x 1 if headache is still present in 2 hours AXERT 12.5 MG TABS ALMOTRIPTAN MALATE Inactive MINOCYCLINE HCL 50 MG CAP 1 pill by mouth daily for acne MINOCYCLINE HCL 50 MG CAP 443876 MINOCYCLINE HCL Inactive ZOMIG 5 MG TABS Take 1 tablet by mouth daily as needed ZOMIG 5 MG TABS 519316 ZOLMITRIPTAN Inactive ZOFRAN ODT 4 MG TBDP 1 po q6hr PRN Nausea ZOFRAN ODT 4 MG TBDP 943457 ONDANSETRON Inactive SUMATRIPTAN 20 MG/ACT SOLN 1 spray in one nostril at onset of migraine; may repeat in 2 hours if needed for continued migraine SUMATRIPTAN 20 MG/ACT SOLN 611169 SUMATRIPTAN Inactive BACTRIM DS 800-160 MG TAB 1 tab by mouth twice daily BACTRIM DS 800-160 MG TAB TRIMETHOPRIM-SULFAMETHOXAZOLE Inactive ZITHROMAX Z-ADALGISA 250 MG TABS 2 today, then 1 daily for 4 days 2013 ZITHROMAX Z-ADALGISA 250 MG TABS 1907799 AZITHROMYCIN Inactive BACTRIM DS 800-160 MG TAB 1 tab by mouth twice daily BACTRIM DS 800-160 MG TAB TRIMETHOPRIM-SULFAMETHOXAZOLE Inactive Advance Directives Directive Description Start Date CONSENT: MEDICATION HISTORY CONSENT FOR MINOR CARE Immunizations Vaccine Administration Date Value Standard Description Adacel (Tetanus, reduced Diphtheria, and acellular Pertussis Immunization) Adacel [[id number]] tetanus toxoid, reduced diphtheria toxoid, and acellular [...] CBC W/DIFF, Comp. Metabolic Panel, [facility] - Chemistry sodium, serum 134 mmol/L 776-414 1946/09/10 potassium, serum 4.4 mmol/L 3.5-5.2 chloride, serum [...] CBC W/DIFF, Comp. Metabolic Panel, [facility] - Hematology leukocyte count, blood 18.3 10^3/MM^3 [...] count 245 10^3/MM^3 10*3/mm3 142-424 Lab Report: UA - Chemistry protein, total urine random TRACE mg/dL Lab Report: UADIP W/MICRO, AUTO - Chemistry RBC, urine, dipstick Negative Negative protein, total urine random 2+ mg/dL Negative Lab Report: UADIP W/MICRO, AUTO - Urinalysis glucose, urine, semiquantitative Negative Negative ketones, urine, by test strip 3+ Negative bilirubin, urine Negative Negative urine color [place] Colorless;Lightyellow;Straw;Yellow appearance, urine SlCloudy Clear specific gravity, urine >=1.030 1.000-1.030 pH, urine, semiquantitative 6.0 5.0-8.5 urobilinogen, urine, semiquantitative (dipstick) 1.0 Normal leukocyte esterase, urine, by dipstick Negative Negative nitrite, urine, semiquantitative Negative Negative Encounters Code Encounter Date Provider Facility CPT-59415 Level 3 Est. Patient 17:25:12 CDT Tamera Mustafa MD PhD [facility] CPT-42231 Level 3 Est. Patient 15:47:52 CDT Jr Morrow MD [facility] CPT-01469 Level 3 Est. 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 Patient 11:34:16 CDT Gerson EMANUEL [facility] CPT-99156 Level 3 Est. Patient 16:33:58 CDT Edyta Otto APRN [facility] CPT-71992 Level 3 Est. 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
--- OUTSIDE RECORDS SUMMARY | 2018-01-18 03:45 | XMS REPORT | Clinical Summary ---
Author Author Admin, QIE Organization [facility] Address Unknown Phone Unavailable Allergies, Adverse Reactions, [...] 1 tab po qday prn anxiety ALPRAZOLAM 98693691563 Active Alli Frye MD Active LORAZEPAM 0.5 MG TAB take 1 tab po qday prn anxiety attacks 11/04 LORAZEPAM 25161423622 No Longer Active Alli Frye MD Active RANITIDINE HCL 300 MG CAPS 1 tablet by mouth daily prn acid reflux RANITIDINE HCL 92006453265 Active Alli Frye MD Active METOPROLOL TARTRATE 25 MG ORAL TABS take 1 tab po BID METOPROLOL TARTRATE 64309454110 Active Alli Frye MD Active AMITRIPTYLINE HCL 25 MG TAB 1 tab by mouth daily at bedtime 11/04 AMITRIPTYLINE HCL 89247255006 No Longer Active Alli Frye MD Active ZOLOFT 50 MG TAB 1 tablet by mouth daily for mood and headache SERTRALINE HCL 79788502016 No Longer Active Alli Frye MD Active AMITRIPTYLINE HCL 50 MG TAB 1 po qhs for migraine AMITRIPTYLINE HCL 25566832469 No Longer Active Alli Frye MD Active ZOLOFT 100 MG TAB take 1 tab po qday for mood and headaches. SERTRALINE HCL 95062246704 Active Alli Frye MD Active LEVOTHYROXINE SODIUM 112 MCG TABS 1 pill by mouth daily for thyroid LEVOTHYROXINE SODIUM 56781210493 Active Alli Frye MD Active AMITRIPTYLINE HCL 50 MG ORAL TABS 1 pill by mouth nightly, for migraine prevention AMITRIPTYLINE HCL 29175180088 No Longer Active Alli Frye MD Active MAGNESIUM OXIDE 400 MG CAPS 1 po with migraine MAGNESIUM OXIDE 46395935399 No Longer Active Alli Frye MD Active AMITRIPTYLINE HCL 75 MG TAB take 1 tab po qhs for migraines. 2016 AMITRIPTYLINE HCL 02801236081 No Longer Active Alli Frye MD Active MULTIVITAMIN GUMMIES ADULT CHEW MULTIPLE VITAMINS-MINERALS 77613922571 Active Alli Frye MD Active TRANSDERM-SCOP 1.5 MG TRANS PT72 1 patch every 3 days, as needed for motion sickness, start at least 4 hours hours prior to departure SCOPOLAMINE BASE 93645411957 No Longer Active Alli Frye MD Active LEVOTHYROXINE SODIUM 125 MCG ORAL TABS 1 pill by mouth daily, for thyroid LEVOTHYROXINE SODIUM 78711829301 No Longer Active Alli Frye MD Active ZOFRAN ODT 4 MG TBDP 1 pill dissolved by mouth every 4 hours if needed for nausea ONDANSETRON 33842719247 Active Tamera Mustafa MD PhD Active SUMATRIPTAN 20 MG/ACT SOLN 1 spray in one nostril at onset of migraine; may repeat in 2 hours if needed for continued migraine SUMATRIPTAN 81191473584 No Longer Active Tamera Mustafa MD PhD Active ZOFRAN ODT 4 MG TBDP 1 po q6hr PRN Nausea ONDANSETRON 56018593685 No Longer Active Jr Morrow MD Active EXCEDRIN MIGRAINE 250-250-65 MG TABS 1 tab po as needed [id number] 49409829365 Active Jr Morrow MD Active ZOMIG 5 MG TABS Take 1 tablet by mouth daily as needed ZOLMITRIPTAN 70547798951 No Longer Active Jr Morrow MD Active BACTRIM DS 800-160 MG TAB 1 tab by mouth twice daily TRIMETHOPRIM-SULFAMETHOXAZOLE 16267294400 No Longer Active Tamera Mustafa MD PhD Active ZITHROMAX Z-ADALGISA 250 MG TABS 2 today, then 1 daily for 4 days 2013 AZITHROMYCIN 87788849975 No Longer Active Tor Gramajo MD Active MINOCYCLINE HCL 50 MG CAP 1 pill by mouth daily for acne MINOCYCLINE HCL 64698692832 No Longer Active Tor Gramajo MD Active AXERT 12.5 MG TABS 1 tablet by mouth at onset of migraine; may repeat x 1 if headache is still present in 2 hours ALMOTRIPTAN MALATE 75668824053 No Longer Active Tamera Mustafa MD PhD Active ELIMITE 5 % CREA Apply from head to toe including scalp and soles of feet. Wash off after 8 hours. PERMETHRIN 84253779013 No Longer Active Tamera Mustafa MD PhD Active AMOXICILLIN 500 MG TABS 2 PO bid x 10 days AMOXICILLIN 38409710868 No Longer Active Tamera Mustafa MD PhD Active MAXALT 5 MG TABS 1 pill by mouth at start of migraine; may repeat x 1 if no improvement in 2 hours RIZATRIPTAN BENZOATE 34296603673 No Longer Active Tamera Mustafa MD PhD Active BACTRIM DS 800-160 MG TAB 1 tab by mouth twice daily TRIMETHOPRIM-SULFAMETHOXAZOLE 77014476518 No Longer Active Alli Frye MD Active TRI-SPRINTEC 0.18/0.215/0.25 MG-35 MCG TABS 1 po qd as directed NORGESTIM-ETH ESTRAD TRIPHASIC 61171211819 Active Alli Frye MD Active AXERT 6.25 MG TABS 1 pill by mouth at start of migraine; may repeat x 1 in 1 hr if needed ALMOTRIPTAN MALATE 84630030358 No Longer Active Tamera Mustafa MD PhD Active GENERESS FE 0.8-25 MG-MCG CHEW 1 daily NORETHIN-ETH ESTRADIOL-FE 40667807383 No Longer Active Tamera Mustafa MD PhD Active DOXYCYCLINE HYCLATE 50 MG CAP 1 pill by mouth daily for acne 2012 DOXYCYCLINE HYCLATE 57719369531 No Longer Active Tamera Mustafa MD PhD Active AMOXICILLIN 875 MG TABS 1 TWO TIMES A DAY AMOXICILLIN 80929766179 No Longer Active Sera Mcdowell MD Active AMOXICILLIN 875 MG TABS 1 TWO TIMES A DAY AMOXICILLIN 875 MG TABS 310954 AMOXICILLIN Inactive DOXYCYCLINE HYCLATE 50 MG CAP 1 pill by mouth daily for acne 2012 DOXYCYCLINE HYCLATE 50 MG CAP 5212825 DOXYCYCLINE HYCLATE Inactive GENERESS FE 0.8-25 MG-MCG CHEW 1 daily GENERESS FE 0.8-25 MG-MCG CHEW 8806230 NORETHIN-ETH ESTRADIOL-FE Inactive AXERT 6.25 MG TABS 1 pill by mouth at start of migraine; may repeat x 1 in 1 hr if needed AXERT 6.25 MG TABS 927668 ALMOTRIPTAN MALATE Inactive MAXALT 5 MG TABS 1 pill by mouth at start of migraine; may repeat x 1 if no improvement in 2 hours MAXALT 5 MG TABS 576750 RIZATRIPTAN BENZOATE Inactive AMOXICILLIN 500 MG TABS 2 PO bid x 10 days AMOXICILLIN 500 MG TABS 322065 AMOXICILLIN Inactive ELIMITE 5 % CREA Apply from head to toe including scalp and soles of feet. Wash off after 8 hours. ELIMITE 5 % CREA 140981 PERMETHRIN Inactive AXERT 12.5 MG TABS 1 tablet by mouth at onset of migraine; may repeat x 1 if headache is still present in 2 hours AXERT 12.5 MG TABS 140124 ALMOTRIPTAN MALATE Inactive MINOCYCLINE HCL 50 MG CAP 1 pill by mouth daily for acne MINOCYCLINE HCL 50 MG CAP 030332 MINOCYCLINE HCL Inactive ZOMIG 5 MG TABS Take 1 tablet by mouth daily as needed ZOMIG 5 MG TABS 151877 ZOLMITRIPTAN Inactive ZOFRAN ODT 4 MG TBDP 1 po q6hr PRN Nausea ZOFRAN ODT 4 MG TBDP 231174 ONDANSETRON Inactive SUMATRIPTAN 20 MG/ACT SOLN 1 spray in one nostril at onset of migraine; may repeat in 2 hours if needed for continued migraine SUMATRIPTAN 20 MG/ACT SOLN 004976 SUMATRIPTAN Inactive LEVOTHYROXINE SODIUM 125 MCG ORAL TABS 1 pill by mouth daily, for thyroid LEVOTHYROXINE SODIUM 125 MCG ORAL TABS 167374 LEVOTHYROXINE SODIUM Inactive TRANSDERM-SCOP 1.5 MG TRANS PT72 1 patch every 3 days, as needed for motion sickness, start at least 4 hours hours prior to departure TRANSDERM-SCOP 1.5 MG TRANS PT72 SCOPOLAMINE BASE Inactive AMITRIPTYLINE HCL 75 MG TAB take 1 tab po qhs for migraines. 2016 AMITRIPTYLINE HCL 75 MG TAB 897196 AMITRIPTYLINE HCL Inactive MAGNESIUM OXIDE 400 MG CAPS 1 po with migraine MAGNESIUM OXIDE 400 MG CAPS 361681 MAGNESIUM OXIDE Inactive AMITRIPTYLINE HCL 50 MG ORAL TABS 1 pill by mouth nightly, for migraine prevention AMITRIPTYLINE HCL 50 MG ORAL TABS 639773 AMITRIPTYLINE HCL Inactive AMITRIPTYLINE HCL 50 MG TAB 1 po qhs for migraine AMITRIPTYLINE HCL 50 MG TAB 620024 AMITRIPTYLINE HCL Inactive ZOLOFT 50 MG TAB 1 tablet by mouth daily for mood and headache ZOLOFT 50 MG TAB 282854 SERTRALINE HCL Inactive AMITRIPTYLINE HCL 25 MG TAB 1 tab by mouth daily at bedtime 11/04 AMITRIPTYLINE HCL 25 MG TAB 064444 AMITRIPTYLINE HCL Inactive LORAZEPAM 0.5 MG TAB take 1 tab po qday prn anxiety attacks 11/04 LORAZEPAM 0.5 MG TAB 913951 LORAZEPAM Inactive BACTRIM DS 800-160 MG TAB 1 tab by mouth twice daily BACTRIM DS 800-160 MG TAB 19820713 TRIMETHOPRIM-SULFAMETHOXAZOLE Inactive ZITHROMAX Z-ADALGISA 250 MG TABS 2 today, then 1 daily for 4 days 2013 ZITHROMAX Z-ADALGISA 250 MG TABS 1641785 AZITHROMYCIN Inactive BACTRIM DS 800-160 MG TAB 1 tab by mouth twice daily BACTRIM DS 800-160 MG TAB 19820713 TRIMETHOPRIM-SULFAMETHOXAZOLE Inactive Advance Directives Directive Description Start Date CONSENT: MEDICATION HISTORY CONSENT FOR MINOR CARE Immunizations Vaccine Administration Date Value Standard Description Adacel (Tetanus, reduced Diphtheria, and acellular Pertussis Immunization) Adacel [[id number]] tetanus toxoid, reduced diphtheria toxoid, and acellular [...] 0.36-3.74 Encounters Code Encounter Date Provider Facility CPT-11754 Level 4 Est. Patient 23:05:57 CDT Alli Frye MD [facility]-73056 Level 4 Est. Patient 12:25:34 CDT Alli Frye MD [facility]-72055 Level 4 Est. Patient 13:40:53 CDT Alli Frye MD [facility]-60786 Level 4 Est. Patient 13:18:45 HAND STRIPPER Alli Frye MD [facility]-08740 Level 4 Est. Patient 11:32:52 HAND STRIPPER Alli Frye MD [facility]-51209 Level 4 Est. Patient 14:47:16 CDT Alli Frye MD [facility]-33106 Level 3 Est. Patient 17:25:12 CDT Tamera Mustafa MD PhD [facility]-85974 Level 3 Est. Patient 15:47:52 CDT Jr Morrow MD [facility] CPT-14967 Level 3 Est. Patient 17:07:09 HAND STRIPPER Tor Gramajo MD [facility] CPT-26367 Level 3 Est. Patient 11:34:16 CDT Gerson EMANUEL [facility] CPT-61508 Level 3 Est. Patient 16:33:58 CDT Edyta Otto APRN [facility]-19432 Level 3 Est. Patient 15:17:40 HAND STRIPPER Sera Mcdowell MD [facility] CPT-24059 Level 3 Est. Patient 16:32:34 HAND STRIPPER Sera Mcdowell MD [facility] Procedures Code Procedure Name Date Entry Date Standard Description CPT-89234 First Vx - Ix admin via ID IM or jet injects without counseling by physician 15:09:59 CDT CPT-08760 Menveo Intramuscular Solution Reconstituted 15:09:59 CDT CPT-62702 Meningococcal Conjugate Vacine (Menactra) 12:25:34 CDT CPT-01108 Abd compl w upright 16:06:21 CDT CPT-PV Prev. Care Visit 12:33:36 HAND STRIPPER
--- OUTSIDE RECORDS SUMMARY | 2018-01-18 03:47 | XMS REPORT | Clinical Summary ---
Author Author Admin, WILBERT Organization [facility] Address Unknown Phone Unavailable Allergies, Adverse Reactions, [...] hours hours prior to departure SCOPOLAMINE BASE 58492216937 Active Tamera Mustafa MD PhD Active ZOFRAN ODT 4 MG TBDP 1 pill dissolved by mouth every 4 hours if needed for nausea ONDANSETRON 21395751095 Active Tamera Mustafa MD PhD Active AMITRIPTYLINE HCL 25 MG ORAL TABS 1 pill by mouth nightly, for migraine prevention AMITRIPTYLINE HCL 96911919340 Active Damon Ortiz DO Active LEVOTHYROXINE SODIUM 100 MCG ORAL TABS 1 tab by mouth daily LEVOTHYROXINE SODIUM 68696634147 Active Tamera Mustafa MD PhD Active SUMATRIPTAN 20 MG/ACT SOLN 1 spray in one nostril at onset of migraine; may repeat in 2 hours if needed for continued migraine SUMATRIPTAN 57463050881 No Longer Active Tamera Mustafa MD PhD Active ZOFRAN ODT 4 MG TBDP 1 po q6hr PRN Nausea ONDANSETRON 33906908524 No Longer Active Jr Morrow MD Active EXCEDRIN MIGRAINE 250-250-65 MG TABS 1 tab po as needed [id number] 75274430194 Active Jr Morrow MD Active ZOMIG 5 MG TABS Take 1 tablet by mouth daily as needed ZOLMITRIPTAN 86276823043 No Longer Active Jr Morrow MD Active BACTRIM DS 800-160 MG TAB 1 tab by mouth twice daily TRIMETHOPRIM-SULFAMETHOXAZOLE 00218108186 No Longer Active Tamera Mustafa MD PhD Active ZITHROMAX Z-ADALGISA 250 MG TABS 2 today, then 1 daily for 4 days 2013 AZITHROMYCIN 51611642027 No Longer Active Tor Gramajo MD Active MINOCYCLINE HCL 50 MG CAP 1 pill by mouth daily for acne MINOCYCLINE HCL 25245752705 No Longer Active Tor Gramajo MD Active AXERT 12.5 MG TABS 1 tablet by mouth at onset of migraine; may repeat x 1 if headache is still present in 2 hours ALMOTRIPTAN MALATE 24865168964 No Longer Active Tamera Mustafa MD PhD Active ELIMITE 5 % CREA Apply from head to toe including scalp and soles of feet. Wash off after 8 hours. PERMETHRIN 01772719042 No Longer Active Tamera Mustafa MD PhD Active AMOXICILLIN 500 MG TABS 2 PO bid x 10 days AMOXICILLIN 94188020579 No Longer Active Tamera Mustafa MD PhD Active MAXALT 5 MG TABS 1 pill by mouth at start of migraine; may repeat x 1 if no improvement in 2 hours RIZATRIPTAN BENZOATE 62892083858 No Longer Active Tamera Mustafa MD PhD Active BACTRIM DS 800-160 MG TAB 1 tab by mouth twice daily TRIMETHOPRIM-SULFAMETHOXAZOLE 92323088367 No Longer Active Alli Frye MD Active TRI-SPRINTEC 0.18/0.215/0.25 MG-35 MCG TABS 1 po qd as directed NORGESTIM-ETH ESTRAD TRIPHASIC 03786286110 Active Gerson EMANUEL Active AXERT 6.25 MG TABS 1 pill by mouth at start of migraine; may repeat x 1 in 1 hr if needed ALMOTRIPTAN MALATE 46366046467 No Longer Active Tamera Mustafa MD PhD Active GENERESS FE 0.8-25 MG-MCG CHEW 1 daily NORETHIN-ETH ESTRADIOL-FE 12166866066 No Longer Active Tamera Mustafa MD PhD Active DOXYCYCLINE HYCLATE 50 MG CAP 1 pill by mouth daily for acne 2012 DOXYCYCLINE HYCLATE 37897939957 No Longer Active Tamera Mustafa MD PhD Active AMOXICILLIN 875 MG TABS 1 TWO TIMES A DAY AMOXICILLIN 88020832610 No Longer Active Sera Mcdowell MD Active AMOXICILLIN 875 MG TABS 1 TWO TIMES A DAY AMOXICILLIN 875 MG TABS 292564 AMOXICILLIN Inactive DOXYCYCLINE HYCLATE 50 MG CAP 1 pill by mouth daily for acne 2012 DOXYCYCLINE HYCLATE 50 MG CAP 473149 DOXYCYCLINE HYCLATE Inactive GENERESS FE 0.8-25 MG-MCG CHEW 1 daily GENERESS FE 0.8-25 MG-MCG CHEW 1819947 NORETHIN-ETH ESTRADIOL-FE Inactive AXERT 6.25 MG TABS 1 pill by mouth at start of migraine; may repeat x 1 in 1 hr if needed AXERT 6.25 MG TABS ALMOTRIPTAN MALATE Inactive MAXALT 5 MG TABS 1 pill by mouth at start of migraine; may repeat x 1 if no improvement in 2 hours MAXALT 5 MG TABS 676683 RIZATRIPTAN BENZOATE Inactive AMOXICILLIN 500 MG TABS 2 PO bid x 10 days AMOXICILLIN 500 MG TABS 850860 AMOXICILLIN Inactive ELIMITE 5 % CREA Apply from head to toe including scalp and soles of feet. Wash off after 8 hours. ELIMITE 5 % CREA 273048 PERMETHRIN Inactive AXERT 12.5 MG TABS 1 tablet by mouth at onset of migraine; may repeat x 1 if headache is still present in 2 hours AXERT 12.5 MG TABS ALMOTRIPTAN MALATE Inactive MINOCYCLINE HCL 50 MG CAP 1 pill by mouth daily for acne MINOCYCLINE HCL 50 MG CAP 225797 MINOCYCLINE HCL Inactive ZOMIG 5 MG TABS Take 1 tablet by mouth daily as needed ZOMIG 5 MG TABS 962204 ZOLMITRIPTAN Inactive ZOFRAN ODT 4 MG TBDP 1 po q6hr PRN Nausea ZOFRAN ODT 4 MG TBDP 719805 ONDANSETRON Inactive SUMATRIPTAN 20 MG/ACT SOLN 1 spray in one nostril at onset of migraine; may repeat in 2 hours if needed for continued migraine SUMATRIPTAN 20 MG/ACT SOLN 396469 SUMATRIPTAN Inactive BACTRIM DS 800-160 MG TAB 1 tab by mouth twice daily BACTRIM DS 800-160 MG TAB TRIMETHOPRIM-SULFAMETHOXAZOLE Inactive ZITHROMAX Z-ADALGISA 250 MG TABS 2 today, then 1 daily for 4 days 2013 ZITHROMAX Z-ADALGISA 250 MG TABS 7552287 AZITHROMYCIN Inactive BACTRIM DS 800-160 MG TAB 1 tab by mouth twice daily BACTRIM DS 800-160 MG TAB TRIMETHOPRIM-SULFAMETHOXAZOLE Inactive Advance Directives Directive Description Start Date CONSENT: MEDICATION HISTORY CONSENT FOR MINOR CARE Immunizations Vaccine Administration Date Value Standard Description Adacel (Tetanus, reduced Diphtheria, and acellular Pertussis Immunization) Adacel [[id number]] tetanus toxoid, reduced diphtheria toxoid, and acellular [...] Range Description Chart Maintenance: labs entered to [facility] - Chemistry thyroxine, serum, free 1.25 ng/dL thyroid stimulating hormone, serum 0.29 u[iU]/mL Chart Maintenance: Outside labs entered on [facility] - Chemistry prostate specific antigen 3.70 ng/mL Lab Report: CBC W/DIFF, Comp. Metabolic Panel, [facility] [place] - Chemistry sodium, serum 134 mmol/L 068-911 2495/09/10 potassium, serum 4.4 mmol/L 3.5-5.2 chloride, serum [...] Lab Report: CBC W/DIFF, Comp. Metabolic Panel, [facility] [place] - Hematology leukocyte count, blood 18.3 10^3/MM^3 [...] Negative bilirubin, urine Negative Negative urine color Ashley Colorless;Lightyellow;Straw;Yellow appearance, urine SlCloudy Clear specific gravity, urine >=1.030 1.000-1.030 pH, urine, semiquantitative 6.0 5.0-8.5 Encounters Code Encounter Date Provider Facility CPT-69908 Level 3 Est. Patient 17:25:12 CDT Tamera Mustafa MD PhD [facility] CPT-99370 Level 3 Est. Patient 15:47:52 CDT Jr Morrow MD [facility] CPT-16145 Level 3 Est. Patient 17:07:09 MEDICAL RECORDS TECH Tor Gramajo MD [facility] CPT-08829 Level 3 Est. Patient 11:34:16 CDT Gerson EMANUEL [facility] CPT-84423 Level 3 Est. Patient 16:33:58 CDT Edyta Otto APRN [facility] CPT-20473 Level 3 Est. Patient 15:17:40 MEDICAL RECORDS TECH Sera Mcdowell MD [facility] CPT-25386 Level 3 Est. Patient 16:32:34 MEDICAL RECORDS TECH Sera Mcdowell MD [facility] Procedures Code Procedure Name Date Entry Date Standard Description CPT-52296 Abd compl w upright 16:06:21 CDT CPT-PV Prev. Care Visit 12:33:36 MEDICAL RECORDS TECH
--- OUTSIDE RECORDS SUMMARY | 2018-01-18 03:48 | XMS REPORT | Clinical Summary ---
Author Author Admin, WILBERT Organization [employer] Address Unknown Phone Unavailable Allergies, Adverse Reactions, [...] tab po qday prn anxiety attacks LORAZEPAM 19489063049 Active Alli Frye MD Active ZOLOFT 50 MG TAB 1 tablet by mouth daily for mood and headache SERTRALINE HCL 52271679385 Active Alli Frye MD Active AMITRIPTYLINE HCL 50 MG TAB 1 po qhs for migraine AMITRIPTYLINE HCL 40537177572 Active Alli Frey MD Active AMITRIPTYLINE HCL 75 MG TAB take 1 tab po qhs for migraines. AMITRIPTYLINE HCL 54236576086 Active Alli Frye MD Active MAGNESIUM OXIDE 400 MG CAPS 1 po with migraine MAGNESIUM OXIDE 34521942591 Active Alli Frye MD Active MULTIVITAMIN GUMMIES ADULT CHEW MULTIPLE VITAMINS-MINERALS 02523223177 Active Alli Frye MD Active TRANSDERM-SCOP 1.5 MG TRANS PT72 1 patch every 3 days, as needed for motion sickness, start at least 4 hours hours prior to departure SCOPOLAMINE BASE 71126215281 No Longer Active Alli Frye MD Active LEVOTHYROXINE SODIUM 100 MCG TABS 1 pill by mouth daily for thyroid LEVOTHYROXINE SODIUM 43872849094 Active Alli Frye MD Active LEVOTHYROXINE SODIUM 125 MCG ORAL TABS 1 pill by mouth daily, for thyroid LEVOTHYROXINE SODIUM 75495292890 No Longer Active Alli Frye MD Active AMITRIPTYLINE HCL 50 MG ORAL TABS 1 pill by mouth nightly, for migraine prevention AMITRIPTYLINE HCL 10496713079 Active Tamera Mustafa MD PhD Active ZOFRAN ODT 4 MG TBDP 1 pill dissolved by mouth every 4 hours if needed for nausea ONDANSETRON 95132477453 Active Tamera Mustafa MD PhD Active SUMATRIPTAN 20 MG/ACT SOLN 1 spray in one nostril at onset of migraine; may repeat in 2 hours if needed for continued migraine SUMATRIPTAN 03420225593 No Longer Active Tamera Mustafa MD PhD Active ZOFRAN ODT 4 MG TBDP 1 po q6hr PRN Nausea ONDANSETRON 61083429600 No Longer Active Jr Morrow MD Active EXCEDRIN MIGRAINE 250-250-65 MG TABS 1 tab po as needed [id number] 32946699196 Active Jr Morrwo MD Active ZOMIG 5 MG TABS Take 1 tablet by mouth daily as needed ZOLMITRIPTAN 55377408390 No Longer Active Jr Morrow MD Active BACTRIM DS 800-160 MG TAB 1 tab by mouth twice daily TRIMETHOPRIM-SULFAMETHOXAZOLE 61285831581 No Longer Active Tamera Mustafa MD PhD Active ZITHROMAX Z-ADALGISA 250 MG TABS 2 today, then 1 daily for 4 days 2013 AZITHROMYCIN 83344326945 No Longer Active Tor Gramajo MD Active MINOCYCLINE HCL 50 MG CAP 1 pill by mouth daily for acne MINOCYCLINE HCL 41055802347 No Longer Active Tor Gramajo MD Active AXERT 12.5 MG TABS 1 tablet by mouth at onset of migraine; may repeat x 1 if headache is still present in 2 hours ALMOTRIPTAN MALATE 53862536092 No Longer Active Tamera Mustafa MD PhD Active ELIMITE 5 % CREA Apply from head to toe including scalp and soles of feet. Wash off after 8 hours. PERMETHRIN 57283700820 No Longer Active Tamera Mustafa MD PhD Active AMOXICILLIN 500 MG TABS 2 PO bid x 10 days AMOXICILLIN 81889504707 No Longer Active Tamera Mustafa MD PhD Active MAXALT 5 MG TABS 1 pill by mouth at start of migraine; may repeat x 1 if no improvement in 2 hours RIZATRIPTAN BENZOATE 19275334094 No Longer Active Tamera Mustafa MD PhD Active BACTRIM DS 800-160 MG TAB 1 tab by mouth twice daily TRIMETHOPRIM-SULFAMETHOXAZOLE 50625325685 No Longer Active Alli Frye MD Active TRI-SPRINTEC 0.18/0.215/0.25 MG-35 MCG TABS 1 po qd as directed NORGESTIM-ETH ESTRAD TRIPHASIC 74046680389 Active Alli Frye MD Active AXERT 6.25 MG TABS 1 pill by mouth at start of migraine; may repeat x 1 in 1 hr if needed ALMOTRIPTAN MALATE 35262374612 No Longer Active Tamera Mustafa MD PhD Active GENERESS FE 0.8-25 MG-MCG CHEW 1 daily NORETHIN-ETH ESTRADIOL-FE 72430321060 No Longer Active Tamera Mustafa MD PhD Active DOXYCYCLINE HYCLATE 50 MG CAP 1 pill by mouth daily for acne 2012 DOXYCYCLINE HYCLATE 60876002831 No Longer Active Tamera Mustafa MD PhD Active AMOXICILLIN 875 MG TABS 1 TWO TIMES A DAY AMOXICILLIN 21925922927 No Longer Active Sera Mcdowell MD Active AMOXICILLIN 875 MG TABS 1 TWO TIMES A DAY AMOXICILLIN 875 MG TABS 211193 AMOXICILLIN Inactive DOXYCYCLINE HYCLATE 50 MG CAP 1 pill by mouth daily for acne 2012 DOXYCYCLINE HYCLATE 50 MG CAP 4063967 DOXYCYCLINE HYCLATE Inactive GENERESS FE 0.8-25 MG-MCG CHEW 1 daily GENERESS FE 0.8-25 MG-MCG CHEW 6330039 NORETHIN-ETH ESTRADIOL-FE Inactive AXERT 6.25 MG TABS 1 pill by mouth at start of migraine; may repeat x 1 in 1 hr if needed AXERT 6.25 MG TABS 994611 ALMOTRIPTAN MALATE Inactive MAXALT 5 MG TABS 1 pill by mouth at start of migraine; may repeat x 1 if no improvement in 2 hours MAXALT 5 MG TABS 731955 RIZATRIPTAN BENZOATE Inactive AMOXICILLIN 500 MG TABS 2 PO bid x 10 days AMOXICILLIN 500 MG TABS 911674 AMOXICILLIN Inactive ELIMITE 5 % CREA Apply from head to toe including scalp and soles of feet. Wash off after 8 hours. ELIMITE 5 % CREA 620925 PERMETHRIN Inactive AXERT 12.5 MG TABS 1 tablet by mouth at onset of migraine; may repeat x 1 if headache is still present in 2 hours AXERT 12.5 MG TABS 169568 ALMOTRIPTAN MALATE Inactive MINOCYCLINE HCL 50 MG CAP 1 pill by mouth daily for acne MINOCYCLINE HCL 50 MG CAP 543975 MINOCYCLINE HCL Inactive ZOMIG 5 MG TABS Take 1 tablet by mouth daily as needed ZOMIG 5 MG TABS 730953 ZOLMITRIPTAN Inactive ZOFRAN ODT 4 MG TBDP 1 po q6hr PRN Nausea ZOFRAN ODT 4 MG TBDP 549496 ONDANSETRON Inactive SUMATRIPTAN 20 MG/ACT SOLN 1 spray in one nostril at onset of migraine; may repeat in 2 hours if needed for continued migraine SUMATRIPTAN 20 MG/ACT SOLN 517367 SUMATRIPTAN Inactive LEVOTHYROXINE SODIUM 125 MCG ORAL TABS 1 pill by mouth daily, for thyroid LEVOTHYROXINE SODIUM 125 MCG ORAL TABS 289552 LEVOTHYROXINE SODIUM Inactive TRANSDERM-SCOP 1.5 MG TRANS PT72 1 patch every 3 days, as needed for motion sickness, start at least 4 hours hours prior to departure TRANSDERM-SCOP 1.5 MG TRANS PT72 SCOPOLAMINE BASE Inactive BACTRIM DS 800-160 MG TAB 1 tab by mouth twice daily BACTRIM DS 800-160 MG TAB 250965 TRIMETHOPRIM-SULFAMETHOXAZOLE Inactive ZITHROMAX Z-ADALGISA 250 MG TABS 2 today, then 1 daily for 4 days 2013 ZITHROMAX Z-ADALGISA 250 MG TABS 2320199 AZITHROMYCIN Inactive BACTRIM DS 800-160 MG TAB 1 tab by mouth twice daily BACTRIM DS 800-160 MG TAB 270129 TRIMETHOPRIM-SULFAMETHOXAZOLE Inactive Advance Directives Directive Description Start Date CONSENT: MEDICATION HISTORY CONSENT FOR MINOR CARE Immunizations Vaccine Administration Date Value Standard Description Adacel (Tetanus, reduced Diphtheria, and acellular Pertussis Immunization) Adacel [[id number]] tetanus toxoid, reduced diphtheria toxoid, and acellular [...] pressure, diastolic - 8462-4 80 mm[Hg] BP obnilla blood pressure, systolic - 8480-6 136 mm[Hg] [...] Measured Encounters Code Encounter Date Provider Facility CPT-95339 Level 4 Est. Patient 13:18:45 HYDRO TECHNICIAN Alli Frye MD [facility] CPT-76924 Level 4 Est. Patient 11:32:52 HYDRO TECHNICIAN Alli Frye MD [facility] CPT-45692 Level 4 Est. Patient 14:47:16 CDT Alli Frye MD [facility] CPT-43045 Level 3 Est. Patient 17:25:12 CDT Tamera Mustafa MD [facility] CPT-75060 Level 3 Est. Patient 15:47:52 CDT [facility] Level 3 Est. Patient 17:07:09 HYDRO TECHNICIAN Tor Gramajo MD [facility] CPT-99383 Level 3 Est. Patient 11:34:16 CDT Gerson EMANUEL [facility] CPT-38986 Level 3 Est. Patient 16:33:58 CDT Edyta Otto APRN [facility] CPT-20874 Level 3 Est. Patient 15:17:40 HYDRO TECHNICIAN Sera Mcdowell MD [facility] CPT-93548 Level 3 Est. Patient 16:32:34 HYDRO TECHNICIAN Sera Mcdowell MD [facility] Procedures Code Procedure Name Date Entry Date Standard Description CPT-07205 Abd compl w upright 16:06:21 CDT CPT-PV Prev. Care Visit 12:33:36 HYDRO TECHNICIAN
--- OUTSIDE RECORDS SUMMARY | 2018-01-18 03:49 | XMS REPORT | Clinical Summary ---
Author Author Admin, WILBERT Organization [employer] Address Unknown Phone Unavailable Allergies, Adverse Reactions, [...] 1 tab po qday prn anxiety ALPRAZOLAM 65971347269 Active Alli Frye MD Active LORAZEPAM 0.5 MG TAB take 1 tab po qday prn anxiety attacks 11/04 LORAZEPAM 93011000626 No Longer Active Alli Frye MD Active RANITIDINE HCL 300 MG CAPS 1 tablet by mouth daily prn acid reflux RANITIDINE HCL 85028347853 Active Alli Frye MD Active METOPROLOL TARTRATE 25 MG ORAL TABS take 1 tab po BID METOPROLOL TARTRATE 29026686436 Active Alli Frye MD Active AMITRIPTYLINE HCL 25 MG TAB 1 tab by mouth daily at bedtime 11/04 AMITRIPTYLINE HCL 62403337222 No Longer Active Alli Frye MD Active ZOLOFT 50 MG TAB 1 tablet by mouth daily for mood and headache SERTRALINE HCL 83329878305 No Longer Active Alli Frye MD Active AMITRIPTYLINE HCL 50 MG TAB 1 po qhs for migraine AMITRIPTYLINE HCL 80002569876 No Longer Active Alli Frye MD Active ZOLOFT 100 MG TAB take 1 tab po qday for mood and headaches. SERTRALINE HCL 49693760271 Active Alli Frye MD Active LEVOTHYROXINE SODIUM 112 MCG TABS 1 pill by mouth daily for thyroid LEVOTHYROXINE SODIUM 57403115606 Active Alli Frye MD Active AMITRIPTYLINE HCL 50 MG ORAL TABS 1 pill by mouth nightly, for migraine prevention AMITRIPTYLINE HCL 58763127618 No Longer Active Alli Frye MD Active MAGNESIUM OXIDE 400 MG CAPS 1 po with migraine MAGNESIUM OXIDE 18628409304 No Longer Active Alli Frye MD Active AMITRIPTYLINE HCL 75 MG TAB take 1 tab po qhs for migraines. 2016 AMITRIPTYLINE HCL 78435661466 No Longer Active Alli Frye MD Active MULTIVITAMIN GUMMIES ADULT CHEW MULTIPLE VITAMINS-MINERALS 90563595870 Active Alli Frye MD Active TRANSDERM-SCOP 1.5 MG TRANS PT72 1 patch every 3 days, as needed for motion sickness, start at least 4 hours hours prior to departure SCOPOLAMINE BASE 36833695616 No Longer Active Alli Frye MD Active LEVOTHYROXINE SODIUM 125 MCG ORAL TABS 1 pill by mouth daily, for thyroid LEVOTHYROXINE SODIUM 13931842894 No Longer Active Alli Frye MD Active ZOFRAN ODT 4 MG TBDP 1 pill dissolved by mouth every 4 hours if needed for nausea ONDANSETRON 65491307314 Active Tamera Mustafa MD PhD Active SUMATRIPTAN 20 MG/ACT SOLN 1 spray in one nostril at onset of migraine; may repeat in 2 hours if needed for continued migraine SUMATRIPTAN 09251323899 No Longer Active Tamera Mustafa MD PhD Active ZOFRAN ODT 4 MG TBDP 1 po q6hr PRN Nausea ONDANSETRON 33940841467 No Longer Active Jr Morrow MD Active EXCEDRIN MIGRAINE 250-250-65 MG TABS 1 tab po as needed [id number] 15022768805 Active Jr Morrow MD Active ZOMIG 5 MG TABS Take 1 tablet by mouth daily as needed ZOLMITRIPTAN 30293672055 No Longer Active Jr Morrow MD Active BACTRIM DS 800-160 MG TAB 1 tab by mouth twice daily TRIMETHOPRIM-SULFAMETHOXAZOLE 66706312871 No Longer Active Tamera Mustafa MD PhD Active ZITHROMAX Z-ADALGISA 250 MG TABS 2 today, then 1 daily for 4 days 2013 AZITHROMYCIN 37455761049 No Longer Active Tor Gramajo MD Active MINOCYCLINE HCL 50 MG CAP 1 pill by mouth daily for acne MINOCYCLINE HCL 00758722190 No Longer Active Tor Gramajo MD Active AXERT 12.5 MG TABS 1 tablet by mouth at onset of migraine; may repeat x 1 if headache is still present in 2 hours ALMOTRIPTAN MALATE 20016204529 No Longer Active Tamera Mustafa MD PhD Active ELIMITE 5 % CREA Apply from head to toe including scalp and soles of feet. Wash off after 8 hours. PERMETHRIN 69893020171 No Longer Active Tamera Mustafa MD PhD Active AMOXICILLIN 500 MG TABS 2 PO bid x 10 days AMOXICILLIN 01930408027 No Longer Active Tamera Mustafa MD PhD Active MAXALT 5 MG TABS 1 pill by mouth at start of migraine; may repeat x 1 if no improvement in 2 hours RIZATRIPTAN BENZOATE 54321158034 No Longer Active Tamera Mustafa MD PhD Active BACTRIM DS 800-160 MG TAB 1 tab by mouth twice daily TRIMETHOPRIM-SULFAMETHOXAZOLE 80128536154 No Longer Active Alli Frye MD Active TRI-SPRINTEC 0.18/0.215/0.25 MG-35 MCG TABS 1 po qd as directed NORGESTIM-ETH ESTRAD TRIPHASIC 25869520861 Active Alli Frye MD Active AXERT 6.25 MG TABS 1 pill by mouth at start of migraine; may repeat x 1 in 1 hr if needed ALMOTRIPTAN MALATE 83073843218 No Longer Active Tamera Mustafa MD PhD Active GENERESS FE 0.8-25 MG-MCG CHEW 1 daily NORETHIN-ETH ESTRADIOL-FE 27247229584 No Longer Active Tamera Mustafa MD PhD Active DOXYCYCLINE HYCLATE 50 MG CAP 1 pill by mouth daily for acne 2012 DOXYCYCLINE HYCLATE 92447097094 No Longer Active Tamera Mustafa MD PhD Active AMOXICILLIN 875 MG TABS 1 TWO TIMES A DAY AMOXICILLIN 19817061807 No Longer Active Sera Mcdowell MD Active AMOXICILLIN 875 MG TABS 1 TWO TIMES A DAY AMOXICILLIN 875 MG TABS 360815 AMOXICILLIN Inactive DOXYCYCLINE HYCLATE 50 MG CAP 1 pill by mouth daily for acne 2012 DOXYCYCLINE HYCLATE 50 MG CAP 3819488 DOXYCYCLINE HYCLATE Inactive GENERESS FE 0.8-25 MG-MCG CHEW 1 daily GENERESS FE 0.8-25 MG-MCG CHEW 1752567 NORETHIN-ETH ESTRADIOL-FE Inactive AXERT 6.25 MG TABS 1 pill by mouth at start of migraine; may repeat x 1 in 1 hr if needed AXERT 6.25 MG TABS 439111 ALMOTRIPTAN MALATE Inactive MAXALT 5 MG TABS 1 pill by mouth at start of migraine; may repeat x 1 if no improvement in 2 hours MAXALT 5 MG TABS 608537 RIZATRIPTAN BENZOATE Inactive AMOXICILLIN 500 MG TABS 2 PO bid x 10 days AMOXICILLIN 500 MG TABS 425653 AMOXICILLIN Inactive ELIMITE 5 % CREA Apply from head to toe including scalp and soles of feet. Wash off after 8 hours. ELIMITE 5 % CREA 927942 PERMETHRIN Inactive AXERT 12.5 MG TABS 1 tablet by mouth at onset of migraine; may repeat x 1 if headache is still present in 2 hours AXERT 12.5 MG TABS 850920 ALMOTRIPTAN MALATE Inactive MINOCYCLINE HCL 50 MG CAP 1 pill by mouth daily for acne MINOCYCLINE HCL 50 MG CAP 796169 MINOCYCLINE HCL Inactive ZOMIG 5 MG TABS Take 1 tablet by mouth daily as needed ZOMIG 5 MG TABS 987338 ZOLMITRIPTAN Inactive ZOFRAN ODT 4 MG TBDP 1 po q6hr PRN Nausea ZOFRAN ODT 4 MG TBDP 172667 ONDANSETRON Inactive SUMATRIPTAN 20 MG/ACT SOLN 1 spray in one nostril at onset of migraine; may repeat in 2 hours if needed for continued migraine SUMATRIPTAN 20 MG/ACT SOLN 328397 SUMATRIPTAN Inactive LEVOTHYROXINE SODIUM 125 MCG ORAL TABS 1 pill by mouth daily, for thyroid LEVOTHYROXINE SODIUM 125 MCG ORAL TABS 479456 LEVOTHYROXINE SODIUM Inactive TRANSDERM-SCOP 1.5 MG TRANS PT72 1 patch every 3 days, as needed for motion sickness, start at least 4 hours hours prior to departure TRANSDERM-SCOP 1.5 MG TRANS PT72 SCOPOLAMINE BASE Inactive AMITRIPTYLINE HCL 75 MG TAB take 1 tab po qhs for migraines. 2016 AMITRIPTYLINE HCL 75 MG TAB 634442 AMITRIPTYLINE HCL Inactive MAGNESIUM OXIDE 400 MG CAPS 1 po with migraine MAGNESIUM OXIDE 400 MG CAPS 949597 MAGNESIUM OXIDE Inactive AMITRIPTYLINE HCL 50 MG ORAL TABS 1 pill by mouth nightly, for migraine prevention AMITRIPTYLINE HCL 50 MG ORAL TABS 310704 AMITRIPTYLINE HCL Inactive AMITRIPTYLINE HCL 50 MG TAB 1 po qhs for migraine AMITRIPTYLINE HCL 50 MG TAB 810063 AMITRIPTYLINE HCL Inactive ZOLOFT 50 MG TAB 1 tablet by mouth daily for mood and headache ZOLOFT 50 MG TAB 740106 SERTRALINE HCL Inactive AMITRIPTYLINE HCL 25 MG TAB 1 tab by mouth daily at bedtime 11/04 AMITRIPTYLINE HCL 25 MG TAB 481108 AMITRIPTYLINE HCL Inactive LORAZEPAM 0.5 MG TAB take 1 tab po qday prn anxiety attacks 11/04 LORAZEPAM 0.5 MG TAB 304511 LORAZEPAM Inactive BACTRIM DS 800-160 MG TAB 1 tab by mouth twice daily BACTRIM DS 800-160 MG TAB 381842 TRIMETHOPRIM-SULFAMETHOXAZOLE Inactive ZITHROMAX Z-ADALGISA 250 MG TABS 2 today, then 1 daily for 4 days 2013 ZITHROMAX Z-ADALGISA 250 MG TABS 0812133 AZITHROMYCIN Inactive BACTRIM DS 800-160 MG TAB 1 tab by mouth twice daily BACTRIM DS 800-160 MG TAB 19820713 TRIMETHOPRIM-SULFAMETHOXAZOLE Inactive Advance Directives Directive Description Start Date CONSENT: MEDICATION HISTORY CONSENT FOR MINOR CARE Immunizations Vaccine Administration Date Value Standard Description Adacel (Tetanus, reduced Diphtheria, and acellular Pertussis Immunization) Adacel [[id number]] tetanus toxoid, reduced diphtheria toxoid, and acellular [...] 0.36-3.74 Encounters Code Encounter Date Provider Facility CPT-98103 Level 4 Est. Patient 12:25:34 CDT Alli Frye MD [facility] CPT-66040 Level 4 Est. Patient 13:40:53 CDT Alli Frye MD [facility] CPT-14921 Level 4 Est. Patient 13:18:45 [facility] Alli Frye MD [facility] CPT-60014 Level 4 Est. Patient 11:32:52 [facility] Alli Frye MD [facility] CPT-64198 Level 4 Est. Patient 14:47:16 CDT Alli Frye MD [facility] CPT-90918 Level 3 Est. Patient 17:25:12 CDT Tamera Mustafa MD PhD [facility] CPT-29261 Level 3 Est. Patient 15:47:52 CDT Jr Morrow MD [facility] CPT-87881 Level 3 Est. Patient 17:07:09 [facility] Tor Gramajo MD [facility] CPT-85930 Level 3 Est. Patient 11:34:16 CDT Gerson EMANUEL [facility] CPT-58313 Level 3 Est. Patient 16:33:58 CDT Edyta Otto APRN [facility] CPT-59278 Level 3 Est. Patient 15:17:40 [facility] Sera Mcdowell MD [facility] CPT-25092 Level 3 Est. Patient 16:32:34 [facility] Sera Mcdowell MD [facility] Procedures Code Procedure Name Date Entry Date Standard Description CPT-89814 First Vx - Ix admin via ID IM or jet injects without counseling by physician 15:09:59 CDT CPT-34037 Menveo Intramuscular Solution Reconstituted 15:09:59 CDT CPT-34043 Meningococcal Conjugate Vacine (Menactra) 12:25:34 CDT CPT-27240 Abd compl w upright 16:06:21 CDT CPT-PV Prev. Care Visit 12:33:36 [facility]
--- OUTSIDE RECORDS SUMMARY | 2018-01-18 03:50 | XMS REPORT | Clinical Summary ---
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 LORAZEPAM 0.5 MG TAB take 1 tab po qday prn anxiety attacks 11/04 LORAZEPAM 37633275216 No Longer Active Alli Frye MD Active RANITIDINE HCL 300 MG CAPS 1 tablet by mouth daily prn acid reflux RANITIDINE HCL 93802177811 Active Alli Frye MD Active METOPROLOL TARTRATE 25 MG ORAL TABS take 1 tab po BID METOPROLOL TARTRATE 50047452257 Active Alli Frye MD Active AMITRIPTYLINE HCL 25 MG TAB 1 tab by mouth daily at bedtime 11/04 AMITRIPTYLINE HCL 86875188153 No Longer Active Alli Frye MD Active ZOLOFT 50 MG TAB 1 tablet by mouth daily for mood and headache SERTRALINE HCL 93951748738 No Longer Active Alli Frye MD Active AMITRIPTYLINE HCL 50 MG TAB 1 po qhs for migraine AMITRIPTYLINE HCL 30145889936 No Longer Active Alli Frye MD Active ZOLOFT 100 MG TAB take 1 tab po qday for mood and headaches. SERTRALINE HCL 18577866274 Active Alli Frye MD Active LEVOTHYROXINE SODIUM 112 MCG TABS 1 pill by mouth daily for thyroid LEVOTHYROXINE SODIUM 45161694827 Active Alli Frye MD Active AMITRIPTYLINE HCL 50 MG ORAL TABS 1 pill by mouth nightly, for migraine prevention AMITRIPTYLINE HCL 38218078982 No Longer Active Alli Frye MD Active MAGNESIUM OXIDE 400 MG CAPS 1 po with migraine MAGNESIUM OXIDE 69253918594 No Longer Active Alli Frye MD Active AMITRIPTYLINE HCL 75 MG TAB take 1 tab po qhs for migraines. 2016 AMITRIPTYLINE HCL 37116261418 No Longer Active Alli Frye MD Active MULTIVITAMIN GUMMIES ADULT CHEW MULTIPLE VITAMINS-MINERALS 74644868683 Active Alli Frye MD Active TRANSDERM-SCOP 1.5 MG TRANS PT72 1 patch every 3 days, as needed for motion sickness, start at least 4 hours hours prior to departure SCOPOLAMINE BASE 19788216675 No Longer Active Alli Frye MD Active LEVOTHYROXINE SODIUM 125 MCG ORAL TABS 1 pill by mouth daily, for thyroid LEVOTHYROXINE SODIUM 44471544336 No Longer Active Alli Frye MD Active ZOFRAN ODT 4 MG TBDP 1 pill dissolved by mouth every 4 hours if needed for nausea ONDANSETRON 06487900477 Active Tamera Mustafa MD PhD Active SUMATRIPTAN 20 MG/ACT SOLN 1 spray in one nostril at onset of migraine; may repeat in 2 hours if needed for continued migraine SUMATRIPTAN 71990388844 No Longer Active Tamera Mustafa MD PhD Active ZOFRAN ODT 4 MG TBDP 1 po q6hr PRN Nausea ONDANSETRON 60650608376 No Longer Active Jr Morrow MD Active EXCEDRIN MIGRAINE 250-250-65 MG TABS 1 tab po as needed [id number] 67555017822 Active Jr Morrow MD Active ZOMIG 5 MG TABS Take 1 tablet by mouth daily as needed ZOLMITRIPTAN 67197942622 No Longer Active Jr Morrow MD Active BACTRIM DS 800-160 MG TAB 1 tab by mouth twice daily TRIMETHOPRIM-SULFAMETHOXAZOLE 77326161739 No Longer Active Tamera Mustafa MD PhD Active ZITHROMAX Z-ADALGISA 250 MG TABS 2 today, then 1 daily for 4 days 2013 AZITHROMYCIN 69876820450 No Longer Active Tor Gramajo MD Active MINOCYCLINE HCL 50 MG CAP 1 pill by mouth daily for acne MINOCYCLINE HCL 18966544262 No Longer Active Tor Gramajo MD Active AXERT 12.5 MG TABS 1 tablet by mouth at onset of migraine; may repeat x 1 if headache is still present in 2 hours ALMOTRIPTAN MALATE 87586726717 No Longer Active Tamera Mustafa MD PhD Active ELIMITE 5 % CREA Apply from head to toe including scalp and soles of feet. Wash off after 8 hours. PERMETHRIN 26492812171 No Longer Active Tamera Mustafa MD PhD Active AMOXICILLIN 500 MG TABS 2 PO bid x 10 days AMOXICILLIN 35446145556 No Longer Active Tamera Mustafa MD PhD Active MAXALT 5 MG TABS 1 pill by mouth at start of migraine; may repeat x 1 if no improvement in 2 hours RIZATRIPTAN BENZOATE 50672864676 No Longer Active Tamera Mustafa MD PhD Active BACTRIM DS 800-160 MG TAB 1 tab by mouth twice daily TRIMETHOPRIM-SULFAMETHOXAZOLE 21390940612 No Longer Active Alli Frye MD Active TRI-SPRINTEC 0.18/0.215/0.25 MG-35 MCG TABS 1 po qd as directed NORGESTIM-ETH ESTRAD TRIPHASIC 96760883264 Active Alli Frye MD Active AXERT 6.25 MG TABS 1 pill by mouth at start of migraine; may repeat x 1 in 1 hr if needed ALMOTRIPTAN MALATE 80112880267 No Longer Active Tamera Mustafa MD PhD Active GENERESS FE 0.8-25 MG-MCG CHEW 1 daily NORETHIN-ETH ESTRADIOL-FE 84897000200 No Longer Active Tamera Mustafa MD PhD Active DOXYCYCLINE HYCLATE 50 MG CAP 1 pill by mouth daily for acne 2012 DOXYCYCLINE HYCLATE 53452575690 No Longer Active Tamera Mustafa MD PhD Active AMOXICILLIN 875 MG TABS 1 TWO TIMES A DAY AMOXICILLIN 10004001158 No Longer Active Sera Mcdowell MD Active AMOXICILLIN 875 MG TABS 1 TWO TIMES A DAY AMOXICILLIN 875 MG TABS 777167 AMOXICILLIN Inactive DOXYCYCLINE HYCLATE 50 MG CAP 1 pill by mouth daily for acne 2012 DOXYCYCLINE HYCLATE 50 MG CAP 1772981 DOXYCYCLINE HYCLATE Inactive GENERESS FE 0.8-25 MG-MCG CHEW 1 daily GENERESS FE 0.8-25 MG-MCG CHEW 7291504 NORETHIN-ETH ESTRADIOL-FE Inactive AXERT 6.25 MG TABS 1 pill by mouth at start of migraine; may repeat x 1 in 1 hr if needed AXERT 6.25 MG TABS 499291 ALMOTRIPTAN MALATE Inactive MAXALT 5 MG TABS 1 pill by mouth at start of migraine; may repeat x 1 if no improvement in 2 hours MAXALT 5 MG TABS 410811 RIZATRIPTAN BENZOATE Inactive AMOXICILLIN 500 MG TABS 2 PO bid x 10 days AMOXICILLIN 500 MG TABS 784682 AMOXICILLIN Inactive ELIMITE 5 % CREA Apply from head to toe including scalp and soles of feet. Wash off after 8 hours. ELIMITE 5 % CREA 497641 PERMETHRIN Inactive AXERT 12.5 MG TABS 1 tablet by mouth at onset of migraine; may repeat x 1 if headache is still present in 2 hours AXERT 12.5 MG TABS 723741 ALMOTRIPTAN MALATE Inactive MINOCYCLINE HCL 50 MG CAP 1 pill by mouth daily for acne MINOCYCLINE HCL 50 MG CAP 967784 MINOCYCLINE HCL Inactive ZOMIG 5 MG TABS Take 1 tablet by mouth daily as needed ZOMIG 5 MG TABS 043834 ZOLMITRIPTAN Inactive ZOFRAN ODT 4 MG TBDP 1 po q6hr PRN Nausea ZOFRAN ODT 4 MG TBDP 619329 ONDANSETRON Inactive SUMATRIPTAN 20 MG/ACT SOLN 1 spray in one nostril at onset of migraine; may repeat in 2 hours if needed for continued migraine SUMATRIPTAN 20 MG/ACT SOLN 937455 SUMATRIPTAN Inactive LEVOTHYROXINE SODIUM 125 MCG ORAL TABS 1 pill by mouth daily, for thyroid LEVOTHYROXINE SODIUM 125 MCG ORAL TABS 152970 LEVOTHYROXINE SODIUM Inactive TRANSDERM-SCOP 1.5 MG TRANS PT72 1 patch every 3 days, as needed for motion sickness, start at least 4 hours hours prior to departure TRANSDERM-SCOP 1.5 MG TRANS PT72 SCOPOLAMINE BASE Inactive AMITRIPTYLINE HCL 75 MG TAB take 1 tab po qhs for migraines. 2016 AMITRIPTYLINE HCL 75 MG TAB 372198 AMITRIPTYLINE HCL Inactive MAGNESIUM OXIDE 400 MG CAPS 1 po with migraine MAGNESIUM OXIDE 400 MG CAPS 085056 MAGNESIUM OXIDE Inactive AMITRIPTYLINE HCL 50 MG ORAL TABS 1 pill by mouth nightly, for migraine prevention AMITRIPTYLINE HCL 50 MG ORAL TABS 256123 AMITRIPTYLINE HCL Inactive AMITRIPTYLINE HCL 50 MG TAB 1 po qhs for migraine AMITRIPTYLINE HCL 50 MG TAB 206963 AMITRIPTYLINE HCL Inactive ZOLOFT 50 MG TAB 1 tablet by mouth daily for mood and headache ZOLOFT 50 MG TAB 390743 SERTRALINE HCL Inactive AMITRIPTYLINE HCL 25 MG TAB 1 tab by mouth daily at bedtime 11/04 AMITRIPTYLINE HCL 25 MG TAB 556936 AMITRIPTYLINE HCL Inactive LORAZEPAM 0.5 MG TAB take 1 tab po qday prn anxiety attacks 11/04 LORAZEPAM 0.5 MG TAB 269927 LORAZEPAM Inactive BACTRIM DS 800-160 MG TAB 1 tab by mouth twice daily BACTRIM DS 800-160 MG TAB 19820713 TRIMETHOPRIM-SULFAMETHOXAZOLE Inactive ZITHROMAX Z-ADALGISA 250 MG TABS 2 today, then 1 daily for 4 days 2013 ZITHROMAX Z-ADALGISA 250 MG TABS 6666063 AZITHROMYCIN Inactive BACTRIM DS 800-160 MG TAB 1 tab by mouth twice daily BACTRIM DS 800-160 MG TAB 19820713 TRIMETHOPRIM-SULFAMETHOXAZOLE Inactive Advance Directives Directive Description Start Date CONSENT: MEDICATION HISTORY CONSENT FOR MINOR CARE Immunizations Vaccine Administration Date Value Standard Description Adacel (Tetanus, reduced Diphtheria, and acellular Pertussis Immunization) Adacel [[id number]] tetanus toxoid, reduced diphtheria toxoid, and acellular [...] 0.36-3.74 Encounters Code Encounter Date Provider Facility CPT-35582 Level 4 Est. Patient 23:05:57 CDT Alli Frye MD [facility] [place]-94339 Level 4 Est. Patient 12:25:34 CDT Alli Frye MD [facility] [place]-20928 Level 4 Est. Patient 13:40:53 CDT Alli Frye MD [facility] [place]-09258 Level 4 Est. Patient 13:18:45 TANK ASSEMBLER Alli Frye MD [facility] [place]-78275 Level 4 Est. Patient 11:32:52 TANK ASSEMBLER Alli Frye MD [facility] [place]-53215 Level 4 Est. Patient 14:47:16 CDT Alli Frye MD [facility] [place]-47394 Level 3 Est. Patient 17:25:12 CDT Tamera Mustafa MD PhD [facility] [place]-23123 Level 3 Est. Patient 15:47:52 CDT Jr Morrow MD [facility]-88569 Level 3 Est. Patient 17:07:09 TANK ASSEMBLER Tor Gramajo MD [facility]-63824 Level 3 Est. Patient 11:34:16 CDT Gerson EMANUEL [facility]-09279 Level 3 Est. Patient 16:33:58 CDT Edyta Otto APRN [facility]-84416 Level 3 Est. Patient 15:17:40 TANK ASSEMBLER Sera Mcdowell MD [facility]-98255 Level 3 Est. Patient 16:32:34 TANK ASSEMBLER Sera Mcdowell MD [facility] Procedures Code Procedure Name Date Entry Date Standard Description CPT-19314 First Vx - Ix admin via ID IM or jet injects without counseling by physician 15:09:59 CDT CPT-72750 Menveo Intramuscular Solution Reconstituted 15:09:59 CDT CPT-80843 Meningococcal Conjugate Vacine (Menactra) 12:25:34 CDT CPT-91017 Abd compl w upright 16:06:21 CDT CPT-PV Prev. Care Visit 12:33:36 TANK ASSEMBLER
--- OUTSIDE RECORDS SUMMARY | 2018-01-18 03:50 | XMS REPORT | Clinical Summary ---
Author Author Admin, WILBERT Organization [employer] Address Unknown Phone Unavailable Allergies, Adverse [...] of breast FH DIABETES V18.0 Active Tamera Msutafa MD PhD Family history of diabetes mellitus [...] tab po qday prn anxiety attacks LORAZEPAM 57682044057 Active Alli Frye MD Active ZOLOFT 50 MG TAB 1 tablet by mouth daily for mood and headache SERTRALINE HCL 73080492439 Active Alli Frye MD Active AMITRIPTYLINE HCL 50 MG TAB 1 po qhs for migraine AMITRIPTYLINE HCL 87403303693 Active Alli Frye MD Active AMITRIPTYLINE HCL 75 MG TAB take 1 tab po qhs for migraines. AMITRIPTYLINE HCL 55335275707 Active Alli Frye MD Active MAGNESIUM OXIDE 400 MG CAPS 1 po with migraine MAGNESIUM OXIDE 83675019988 Active Alli Frye MD Active MULTIVITAMIN GUMMIES ADULT CHEW MULTIPLE VITAMINS-MINERALS 32799756495 Active Alli Frye MD Active TRANSDERM-SCOP 1.5 MG TRANS PT72 1 patch every 3 days, as needed for motion sickness, start at least 4 hours hours prior to departure SCOPOLAMINE BASE 36504090231 No Longer Active Alli Frye MD Active LEVOTHYROXINE SODIUM 100 MCG TABS 1 pill by mouth daily for thyroid LEVOTHYROXINE SODIUM 20536583058 Active Alli Frye MD Active LEVOTHYROXINE SODIUM 125 MCG ORAL TABS 1 pill by mouth daily, for thyroid LEVOTHYROXINE SODIUM 04920755348 No Longer Active Alli Frye MD Active AMITRIPTYLINE HCL 50 MG ORAL TABS 1 pill by mouth nightly, for migraine prevention AMITRIPTYLINE HCL 55582811407 Active Tamera Mustafa MD PhD Active ZOFRAN ODT 4 MG TBDP 1 pill dissolved by mouth every 4 hours if needed for nausea ONDANSETRON 34745957573 Active Tamera Mustafa MD PhD Active SUMATRIPTAN 20 MG/ACT SOLN 1 spray in one nostril at onset of migraine; may repeat in 2 hours if needed for continued migraine SUMATRIPTAN 31887919921 No Longer Active Tamera Mustafa MD PhD Active ZOFRAN ODT 4 MG TBDP 1 po q6hr PRN Nausea ONDANSETRON 23863739259 No Longer Active Jr Morrow MD Active EXCEDRIN MIGRAINE 250-250-65 MG TABS 1 tab po as needed [id number] 47611467171 Active Jr Morrow MD Active ZOMIG 5 MG TABS Take 1 tablet by mouth daily as needed ZOLMITRIPTAN 00693849349 No Longer Active Jr Morrow MD Active BACTRIM DS 800-160 MG TAB 1 tab by mouth twice daily TRIMETHOPRIM-SULFAMETHOXAZOLE 16284592226 No Longer Active Tamera Mustafa MD PhD Active ZITHROMAX Z-ADALGISA 250 MG TABS 2 today, then 1 daily for 4 days 2013 AZITHROMYCIN 18920590735 No Longer Active Tor Gramajo MD Active MINOCYCLINE HCL 50 MG CAP 1 pill by mouth daily for acne MINOCYCLINE HCL 70842173244 No Longer Active Tor Gramajo MD Active AXERT 12.5 MG TABS 1 tablet by mouth at onset of migraine; may repeat x 1 if headache is still present in 2 hours ALMOTRIPTAN MALATE 53689546578 No Longer Active Tamera Mustafa MD PhD Active ELIMITE 5 % CREA Apply from head to toe including scalp and soles of feet. Wash off after 8 hours. PERMETHRIN 75468158870 No Longer Active Tamera Mustafa MD PhD Active AMOXICILLIN 500 MG TABS 2 PO bid x 10 days AMOXICILLIN 83723486146 No Longer Active Tamera Mustafa MD PhD Active MAXALT 5 MG TABS 1 pill by mouth at start of migraine; may repeat x 1 if no improvement in 2 hours RIZATRIPTAN BENZOATE 50408433011 No Longer Active Tamera Mustafa MD PhD Active BACTRIM DS 800-160 MG TAB 1 tab by mouth twice daily TRIMETHOPRIM-SULFAMETHOXAZOLE 70452777994 No Longer Active Alli Frye MD Active TRI-SPRINTEC 0.18/0.215/0.25 MG-35 MCG TABS 1 po qd as directed NORGESTIM-ETH ESTRAD TRIPHASIC 34892702384 Active Alli Frye MD Active AXERT 6.25 MG TABS 1 pill by mouth at start of migraine; may repeat x 1 in 1 hr if needed ALMOTRIPTAN MALATE 62679140543 No Longer Active Tamera Mustafa MD PhD Active GENERESS FE 0.8-25 MG-MCG CHEW 1 daily NORETHIN-ETH ESTRADIOL-FE 40015899798 No Longer Active Tamera Mustafa MD PhD Active DOXYCYCLINE HYCLATE 50 MG CAP 1 pill by mouth daily for acne 2012 DOXYCYCLINE HYCLATE 39880278762 No Longer Active Tamera Mustafa MD PhD Active AMOXICILLIN 875 MG TABS 1 TWO TIMES A DAY AMOXICILLIN 97072393905 No Longer Active Sera Mcdowell MD Active AMOXICILLIN 875 MG TABS 1 TWO TIMES A DAY AMOXICILLIN 875 MG TABS 797131 AMOXICILLIN Inactive DOXYCYCLINE HYCLATE 50 MG CAP 1 pill by mouth daily for acne 2012 DOXYCYCLINE HYCLATE 50 MG CAP 2733929 DOXYCYCLINE HYCLATE Inactive GENERESS FE 0.8-25 MG-MCG CHEW 1 daily GENERESS FE 0.8-25 MG-MCG CHEW 0424238 NORETHIN-ETH ESTRADIOL-FE Inactive AXERT 6.25 MG TABS 1 pill by mouth at start of migraine; may repeat x 1 in 1 hr if needed AXERT 6.25 MG TABS 732937 ALMOTRIPTAN MALATE Inactive MAXALT 5 MG TABS 1 pill by mouth at start of migraine; may repeat x 1 if no improvement in 2 hours MAXALT 5 MG TABS 178068 RIZATRIPTAN BENZOATE Inactive AMOXICILLIN 500 MG TABS 2 PO bid x 10 days AMOXICILLIN 500 MG TABS 380801 AMOXICILLIN Inactive ELIMITE 5 % CREA Apply from head to toe including scalp and soles of feet. Wash off after 8 hours. ELIMITE 5 % CREA 620668 PERMETHRIN Inactive AXERT 12.5 MG TABS 1 tablet by mouth at onset of migraine; may repeat x 1 if headache is still present in 2 hours AXERT 12.5 MG TABS 528005 ALMOTRIPTAN MALATE Inactive MINOCYCLINE HCL 50 MG CAP 1 pill by mouth daily for acne MINOCYCLINE HCL 50 MG CAP 119299 MINOCYCLINE HCL Inactive ZOMIG 5 MG TABS Take 1 tablet by mouth daily as needed ZOMIG 5 MG TABS 103867 ZOLMITRIPTAN Inactive ZOFRAN ODT 4 MG TBDP 1 po q6hr PRN Nausea ZOFRAN ODT 4 MG TBDP 521921 ONDANSETRON Inactive SUMATRIPTAN 20 MG/ACT SOLN 1 spray in one nostril at onset of migraine; may repeat in 2 hours if needed for continued migraine SUMATRIPTAN 20 MG/ACT SOLN 320373 SUMATRIPTAN Inactive LEVOTHYROXINE SODIUM 125 MCG ORAL TABS 1 pill by mouth daily, for thyroid LEVOTHYROXINE SODIUM 125 MCG ORAL TABS 390963 LEVOTHYROXINE SODIUM Inactive TRANSDERM-SCOP 1.5 MG TRANS PT72 1 patch every 3 days, as needed for motion sickness, start at least 4 hours hours prior to departure TRANSDERM-SCOP 1.5 MG TRANS PT72 SCOPOLAMINE BASE Inactive BACTRIM DS 800-160 MG TAB 1 tab by mouth twice daily BACTRIM DS 800-160 MG TAB 128533 TRIMETHOPRIM-SULFAMETHOXAZOLE Inactive ZITHROMAX Z-ADALGISA 250 MG TABS 2 today, then 1 daily for 4 days 2013 ZITHROMAX Z-ADALGISA 250 MG TABS 7459036 AZITHROMYCIN Inactive BACTRIM DS 800-160 MG TAB 1 tab by mouth twice daily BACTRIM DS 800-160 MG TAB 405660 TRIMETHOPRIM-SULFAMETHOXAZOLE Inactive Advance Directives Directive Description Start Date CONSENT: MEDICATION HISTORY CONSENT FOR MINOR CARE Immunizations Vaccine Administration Date Value Standard Description Adacel (Tetanus, reduced Diphtheria, and acellular Pertussis Immunization) Adacel [[id number]] tetanus toxoid, reduced diphtheria toxoid, and acellular [...] Measured Encounters Code Encounter Date Provider Facility CPT-00801 Level 4 Est. Patient 13:18:45 SHEET ROCK SANDER Alli Frye MD [facility] CPT-42371 Level 4 Est. Patient 11:32:52 SHEET ROCK SANDER Alli Frye MD [facility] CPT-39083 Level 4 Est. Patient 14:47:16 CDT Alli Frye MD [facility] CPT-98929 Level 3 Est. Patient 17:25:12 CDT Tamera Msutafa MD [facility] CPT-37173 Level 3 Est. Patient 15:47:52 CDT [facility]38 Level 3 Est. Patient 17:07:09 SHEET ROCK SANDER Tor Gramajo MD [facility] CPT-00295 Level 3 Est. Patient 11:34:16 CDT Gerson EMANUEL [facility] CPT-59948 Level 3 Est. Patient 16:33:58 CDT Edyta Otto APRN [facility] CPT-17905 Level 3 Est. Patient 15:17:40 SHEET [employer]OCK S[employer]ER Sera Mcdowell MD [facility] CPT-32020 Level 3 Est. Patient 16:32:34 SHEET ROCK SANDER Sera Mcdowell MD [facility] Procedures Code Procedure Name Date Entry Date Standard Description CPT-08727 Abd compl w upright 16:06:21 CDT CPT-PV Prev. Care Visit 12:33:36 SHEET ROCK SANDER
--- OUTSIDE RECORDS SUMMARY | 2018-01-18 03:51 | XMS REPORT | Clinical Summary ---
Author Author Admin, WILBERT Organization [employer] Address Unknown Phone Unavailable Allergies, Adverse Reactions, [...] 1 tab po qday prn anxiety ALPRAZOLAM [id number] Active Alli Frye MD Active LORAZEPAM 0.5 MG TAB take 1 tab po qday prn anxiety attacks 11/04 LORAZEPAM 97848015949 No Longer Active Alli Frye MD Active RANITIDINE HCL 300 MG CAPS 1 tablet by mouth daily prn acid reflux RANITIDINE HCL 10123190818 Active Alli Frye MD Active METOPROLOL TARTRATE 25 MG ORAL TABS take 1 tab po BID METOPROLOL TARTRATE 34992141440 Active Alli Frye MD Active AMITRIPTYLINE HCL 25 MG TAB 1 tab by mouth daily at bedtime 11/04 AMITRIPTYLINE HCL 56207253120 No Longer Active Alli Frye MD Active ZOLOFT 50 MG TAB 1 tablet by mouth daily for mood and headache SERTRALINE HCL 18648505550 No Longer Active Alli Frye MD Active AMITRIPTYLINE HCL 50 MG TAB 1 po qhs for migraine AMITRIPTYLINE HCL 38836788529 No Longer Active Alli Frye MD Active ZOLOFT 100 MG TAB take 1 tab po qday for mood and headaches. SERTRALINE HCL 20596518925 Active Alli Frye MD Active LEVOTHYROXINE SODIUM 112 MCG TABS 1 pill by mouth daily for thyroid LEVOTHYROXINE SODIUM 07647299200 Active Alli Frye MD Active AMITRIPTYLINE HCL 50 MG ORAL TABS 1 pill by mouth nightly, for migraine prevention AMITRIPTYLINE HCL 61092285788 No Longer Active Alli Frye MD Active MAGNESIUM OXIDE 400 MG CAPS 1 po with migraine MAGNESIUM OXIDE 82153136764 No Longer Active Alli Frye MD Active AMITRIPTYLINE HCL 75 MG TAB take 1 tab po qhs for migraines. 2016 AMITRIPTYLINE HCL 73337600873 No Longer Active Alli Frye MD Active MULTIVITAMIN GUMMIES ADULT CHEW MULTIPLE VITAMINS-MINERALS 84530832193 Active Alli Frye MD Active TRANSDERM-SCOP 1.5 MG TRANS PT72 1 patch every 3 days, as needed for motion sickness, start at least 4 hours hours prior to departure SCOPOLAMINE BASE 03217745342 No Longer Active Alli Frye MD Active LEVOTHYROXINE SODIUM 125 MCG ORAL TABS 1 pill by mouth daily, for thyroid LEVOTHYROXINE SODIUM 04808619328 No Longer Active Alli Frye MD Active ZOFRAN ODT 4 MG TBDP 1 pill dissolved by mouth every 4 hours if needed for nausea ONDANSETRON 06181959270 Active Tamera Mustafa MD PhD Active SUMATRIPTAN 20 MG/ACT SOLN 1 spray in one nostril at onset of migraine; may repeat in 2 hours if needed for continued migraine SUMATRIPTAN 32626994934 No Longer Active Tamera Mustafa MD PhD Active ZOFRAN ODT 4 MG TBDP 1 po q6hr PRN Nausea ONDANSETRON 18618796805 No Longer Active Jr Morrow MD Active EXCEDRIN MIGRAINE 250-250-65 MG TABS 1 tab po as needed [id number] 52055191274 Active Jr Morrow MD Active ZOMIG 5 MG TABS Take 1 tablet by mouth daily as needed ZOLMITRIPTAN 07903285681 No Longer Active Jr Morrow MD Active BACTRIM DS 800-160 MG TAB 1 tab by mouth twice daily TRIMETHOPRIM-SULFAMETHOXAZOLE 06892714990 No Longer Active Tamera Mustafa MD PhD Active ZITHROMAX Z-ADALGISA 250 MG TABS 2 today, then 1 daily for 4 days 2013 AZITHROMYCIN 18187448150 No Longer Active Tor Gramajo MD Active MINOCYCLINE HCL 50 MG CAP 1 pill by mouth daily for acne MINOCYCLINE HCL 38631405654 No Longer Active Tor Gramajo MD Active AXERT 12.5 MG TABS 1 tablet by mouth at onset of migraine; may repeat x 1 if headache is still present in 2 hours ALMOTRIPTAN MALATE 30776906317 No Longer Active Tamera Mustafa MD PhD Active ELIMITE 5 % CREA Apply from head to toe including scalp and soles of feet. Wash off after 8 hours. PERMETHRIN 97322957326 No Longer Active Tamera Mustafa MD PhD Active AMOXICILLIN 500 MG TABS 2 PO bid x 10 days AMOXICILLIN 20659755212 No Longer Active Tamera Mustafa MD PhD Active MAXALT 5 MG TABS 1 pill by mouth at start of migraine; may repeat x 1 if no improvement in 2 hours RIZATRIPTAN BENZOATE 02429509277 No Longer Active Tamera Mustafa MD PhD Active BACTRIM DS 800-160 MG TAB 1 tab by mouth twice daily TRIMETHOPRIM-SULFAMETHOXAZOLE 43138017045 No Longer Active Alli Frye MD Active TRI-SPRINTEC 0.18/0.215/0.25 MG-35 MCG TABS 1 po qd as directed NORGESTIM-ETH ESTRAD TRIPHASIC 36914347007 Active Alli Frye MD Active AXERT 6.25 MG TABS 1 pill by mouth at start of migraine; may repeat x 1 in 1 hr if needed ALMOTRIPTAN MALATE 44915605265 No Longer Active Tamera Mustafa MD PhD Active GENERESS FE 0.8-25 MG-MCG CHEW 1 daily NORETHIN-ETH ESTRADIOL-FE 35011815340 No Longer Active Tamera Mustafa MD PhD Active DOXYCYCLINE HYCLATE 50 MG CAP 1 pill by mouth daily for acne 2012 DOXYCYCLINE HYCLATE 65974388413 No Longer Active Tamera Mustafa MD PhD Active AMOXICILLIN 875 MG TABS 1 TWO TIMES A DAY AMOXICILLIN 06189869843 No Longer Active Sera Mcdowell MD Active AMOXICILLIN 875 MG TABS 1 TWO TIMES A DAY AMOXICILLIN 875 MG TABS 600564 AMOXICILLIN Inactive DOXYCYCLINE HYCLATE 50 MG CAP 1 pill by mouth daily for acne 2012 DOXYCYCLINE HYCLATE 50 MG CAP 2989690 DOXYCYCLINE HYCLATE Inactive GENERESS FE 0.8-25 MG-MCG CHEW 1 daily GENERESS FE 0.8-25 MG-MCG CHEW 0216398 NORETHIN-ETH ESTRADIOL-FE Inactive AXERT 6.25 MG TABS 1 pill by mouth at start of migraine; may repeat x 1 in 1 hr if needed AXERT 6.25 MG TABS 682040 ALMOTRIPTAN MALATE Inactive MAXALT 5 MG TABS 1 pill by mouth at start of migraine; may repeat x 1 if no improvement in 2 hours MAXALT 5 MG TABS 157738 RIZATRIPTAN BENZOATE Inactive AMOXICILLIN 500 MG TABS 2 PO bid x 10 days AMOXICILLIN 500 MG TABS 575857 AMOXICILLIN Inactive ELIMITE 5 % CREA Apply from head to toe including scalp and soles of feet. Wash off after 8 hours. ELIMITE 5 % CREA 657006 PERMETHRIN Inactive AXERT 12.5 MG TABS 1 tablet by mouth at onset of migraine; may repeat x 1 if headache is still present in 2 hours AXERT 12.5 MG TABS 494684 ALMOTRIPTAN MALATE Inactive MINOCYCLINE HCL 50 MG CAP 1 pill by mouth daily for acne MINOCYCLINE HCL 50 MG CAP 605968 MINOCYCLINE HCL Inactive ZOMIG 5 MG TABS Take 1 tablet by mouth daily as needed ZOMIG 5 MG TABS 306180 ZOLMITRIPTAN Inactive ZOFRAN ODT 4 MG TBDP 1 po q6hr PRN Nausea ZOFRAN ODT 4 MG TBDP 564090 ONDANSETRON Inactive SUMATRIPTAN 20 MG/ACT SOLN 1 spray in one nostril at onset of migraine; may repeat in 2 hours if needed for continued migraine SUMATRIPTAN 20 MG/ACT SOLN 834363 SUMATRIPTAN Inactive LEVOTHYROXINE SODIUM 125 MCG ORAL TABS 1 pill by mouth daily, for thyroid LEVOTHYROXINE SODIUM 125 MCG ORAL TABS 172160 LEVOTHYROXINE SODIUM Inactive TRANSDERM-SCOP 1.5 MG TRANS PT72 1 patch every 3 days, as needed for motion sickness, start at least 4 hours hours prior to departure TRANSDERM-SCOP 1.5 MG TRANS PT72 SCOPOLAMINE BASE Inactive AMITRIPTYLINE HCL 75 MG TAB take 1 tab po qhs for migraines. 2016 AMITRIPTYLINE HCL 75 MG TAB 091265 AMITRIPTYLINE HCL Inactive MAGNESIUM OXIDE 400 MG CAPS 1 po with migraine MAGNESIUM OXIDE 400 MG CAPS 314515 MAGNESIUM OXIDE Inactive AMITRIPTYLINE HCL 50 MG ORAL TABS 1 pill by mouth nightly, for migraine prevention AMITRIPTYLINE HCL 50 MG ORAL TABS 032426 AMITRIPTYLINE HCL Inactive AMITRIPTYLINE HCL 50 MG TAB 1 po qhs for migraine AMITRIPTYLINE HCL 50 MG TAB 768016 AMITRIPTYLINE HCL Inactive ZOLOFT 50 MG TAB 1 tablet by mouth daily for mood and headache ZOLOFT 50 MG TAB 576387 SERTRALINE HCL Inactive AMITRIPTYLINE HCL 25 MG TAB 1 tab by mouth daily at bedtime 11/04 AMITRIPTYLINE HCL 25 MG TAB 026264 AMITRIPTYLINE HCL Inactive LORAZEPAM 0.5 MG TAB take 1 tab po qday prn anxiety attacks 11/04 LORAZEPAM 0.5 MG TAB 286870 LORAZEPAM Inactive BACTRIM DS 800-160 MG TAB 1 tab by mouth twice daily BACTRIM DS 800-160 MG TAB 298372 TRIMETHOPRIM-SULFAMETHOXAZOLE Inactive ZITHROMAX Z-ADALGISA 250 MG TABS 2 today, then 1 daily for 4 days 2013 ZITHROMAX Z-ADALGISA 250 MG TABS 6270207 AZITHROMYCIN Inactive BACTRIM DS 800-160 MG TAB 1 tab by mouth twice daily BACTRIM DS 800-160 MG TAB 19820713 TRIMETHOPRIM-SULFAMETHOXAZOLE Inactive Advance Directives Directive Description Start Date CONSENT: MEDICATION HISTORY CONSENT FOR MINOR CARE Immunizations Vaccine Administration Date Value Standard Description Adacel (Tetanus, reduced Diphtheria, and acellular Pertussis Immunization) Adacel [[id number]] tetanus toxoid, reduced diphtheria toxoid, and acellular [...] 0.36-3.74 Encounters Code Encounter Date Provider Facility CPT-36183 Level 4 Est. Patient 12:25:34 CDT Alli Frye MD [facility] CPT-23936 Level 4 Est. Patient 13:40:53 CDT Alli Frye MD [facility] CPT-54168 Level 4 Est. Patient 13:18:45 TELEVISION SERVICE ENGINEER Alli Frye MD [facility] CPT-53122 Level 4 Est. Patient 11:32:52 TELEVISION SERVICE ENGINEER Alli Frye MD [facility] CPT-71339 Level 4 Est. Patient 14:47:16 CDT Alli Frye MD [facility] CPT-97328 Level 3 Est. Patient 17:25:12 CDT Tamera Mustafa MD PhD [facility] CPT-42470 Level 3 Est. Patient 15:47:52 CDT Jr Morrow MD [facility] CPT-67714 Level 3 Est. Patient 17:07:09 TELEVISION SERVICE ENGINEER Tor Gramajo MD [facility] CPT-06382 Level 3 Est. Patient 11:34:16 CDT Gerson EMANUEL [facility] CPT-74804 Level 3 Est. Patient 16:33:58 CDT Edyta Otto APRN [facility] CPT-45988 Level 3 Est. Patient 15:17:40 TELEVISION SERVICE ENGINEER Sera Mcdowell MD [facility] CPT-67767 Level 3 Est. Patient 16:32:34 TELEVISION SERVICE ENGINEER Sera Mcdowell MD [facility] Procedures Code Procedure Name Date Entry Date Standard Description CPT-01275 First Vx - Ix admin via ID IM or jet injects without counseling by physician 15:09:59 CDT CPT-80329 Menveo Intramuscular Solution Reconstituted 15:09:59 CDT CPT-46050 Meningococcal Conjugate Vacine (Menactra) 12:25:34 CDT CPT-05083 Abd compl w upright 16:06:21 CDT CPT-PV Prev. Care Visit 12:33:36 TELEVISION SERVICE ENGINEER
--- OUTSIDE RECORDS SUMMARY | 2018-01-18 03:52 | XMS REPORT | Clinical Summary ---
Author Author Admin, WILBERT Organization [facility] Address Unknown Phone Unavailable Allergies, Adverse Reactions, Alerts Allergy Name Reaction Description Start Date Severity Status Provider NKDA Critical Active Gerson EMANUEL Conditions or Problems Problem Name Problem Code [...] PhD Urinary tract infection, site not specified CARDIAC ARRHYTHMIA, INTERMITTENT ICD-427.9 Inactive Sera Mcdowell [...] Generic Name NDC Status Provider Patient Instruction BACTRIM DS 800-160 MG TAB 1 tab by mouth twice daily TRIMETHOPRIM-SULFAMETHOXAZOLE 25698276299 No Longer Active Tamera Mustafa MD PhD Active ZITHROMAX Z-ADALGISA 250 MG TABS 2 today, then 1 daily for 4 days 2013 AZITHROMYCIN 57874581230 No Longer Active Tor Gramajo MD Active LEVOTHYROXINE SODIUM 88 MCG TABS 1 tablet daily LEVOTHYROXINE SODIUM 54177730323 Active Tor Gramajo MD Active MINOCYCLINE HCL 50 MG CAP 1 pill by mouth daily for acne MINOCYCLINE HCL 17662879834 No Longer Active Tor Gramajo MD Active ZOMIG 5 MG TABS Take 1 tablet by mouth daily as needed ZOLMITRIPTAN 58862075078 Active ELIZABETH Burroughs Active SUMATRIPTAN 20 MG/ACT SOLN 1 spray in one nostril at onset of migraine; may repeat in 2 hours if needed for continued migraine SUMATRIPTAN 58785960595 Active Tamera Mustafa MD PhD Active AXERT 12.5 MG TABS 1 tablet by mouth at onset of migraine; may repeat x 1 if headache is still present in 2 hours ALMOTRIPTAN MALATE 55320844139 No Longer Active Tamera Mustafa MD PhD Active ZOFRAN ODT 4 MG TBDP 1 po q6hr PRN Nausea ONDANSETRON 08545642468 Active Tamera Mustafa MD PhD Active ELIMITE 5 % CREA Apply from head to toe including scalp and soles of feet. Wash off after 8 hours. PERMETHRIN 54991261603 No Longer Active Tamera Mustafa MD PhD Active AMOXICILLIN 500 MG TABS 2 PO bid x 10 days AMOXICILLIN 70324208240 No Longer Active Tamera Msutafa MD PhD Active MAXALT 5 MG TABS 1 pill by mouth at start of migraine; may repeat x 1 if no improvement in 2 hours RIZATRIPTAN BENZOATE 19107893822 No Longer Active Tamera Mustafa MD PhD Active BACTRIM DS 800-160 MG TAB 1 tab by mouth twice daily TRIMETHOPRIM-SULFAMETHOXAZOLE 10464292915 No Longer Active Alli Frye MD Active TRI-SPRINTEC 0.18/0.215/0.25 MG-35 MCG TABS 1 po qd as directed NORGESTIM-ETH ESTRAD TRIPHASIC 22903800418 Active Gerson EMANUEL Active AXERT 6.25 MG TABS 1 pill by mouth at start of migraine; may repeat x 1 in 1 hr if needed ALMOTRIPTAN MALATE 70789974727 No Longer Active Tamera Mustafa MD PhD Active GENERESS FE 0.8-25 MG-MCG CHEW 1 daily NORETHIN-ETH ESTRADIOL-FE 22337745744 No Longer Active Tamera Mustafa MD PhD Active DOXYCYCLINE HYCLATE 50 MG CAP 1 pill by mouth daily for acne 2012 DOXYCYCLINE HYCLATE 75819240824 No Longer Active Tamera Mustafa MD PhD Active AMOXICILLIN 875 MG TABS 1 TWO TIMES A DAY AMOXICILLIN 91066334752 No Longer Active Sera Mcdowell MD Active AMOXICILLIN 875 MG TABS 1 TWO TIMES A DAY AMOXICILLIN 875 MG TABS 887875 AMOXICILLIN Inactive DOXYCYCLINE HYCLATE 50 MG CAP 1 pill by mouth daily for acne 2012 DOXYCYCLINE HYCLATE 50 MG CAP 060794 DOXYCYCLINE HYCLATE Inactive GENERESS FE 0.8-25 MG-MCG [...] in 2 hours MAXALT 5 MG TABS 508390 RIZATRIPTAN BENZOATE Inactive AMOXICILLIN 500 MG TABS 2 PO bid x 10 days AMOXICILLIN 500 MG TABS 166895 AMOXICILLIN Inactive ELIMITE 5 % CREA Apply from head to toe including scalp and soles of feet. Wash off after 8 hours. ELIMITE 5 % CREA 132859 PERMETHRIN Inactive AXERT 12.5 MG TABS 1 tablet by mouth at onset of migraine; may repeat x 1 if headache is still present in 2 hours AXERT 12.5 MG TABS ALMOTRIPTAN MALATE Inactive MINOCYCLINE HCL 50 MG CAP 1 pill by mouth daily for acne MINOCYCLINE HCL 50 MG CAP 786341 MINOCYCLINE HCL Inactive BACTRIM DS 800-160 MG TAB 1 tab by mouth twice daily BACTRIM DS 800-160 MG TAB TRIMETHOPRIM-SULFAMETHOXAZOLE Inactive ZITHROMAX Z-ADALGISA 250 MG TABS 2 today, then 1 daily for 4 days 2013 ZITHROMAX Z-ADALGISA 250 MG TABS 6521647 AZITHROMYCIN Inactive BACTRIM DS 800-160 MG TAB 1 tab by mouth twice daily BACTRIM DS 800-160 MG TAB TRIMETHOPRIM-SULFAMETHOXAZOLE Inactive Advance Directives Directive Description Start Date CONSENT: MEDICATION HISTORY CONSENT FOR MINOR CARE Immunizations Vaccine Administration Date Value Standard Description Adacel (Tetanus, reduced Diphtheria, and acellular Pertussis Immunization) Adacel [[id number]] tetanus toxoid, reduced diphtheria toxoid, and acellular [...] Range Description blood pressure, diastolic - 8462-4 81 mm[Hg] BP bonilla blood pressure, systolic - 8480-6 125 mm[Hg] BP sys height E&M - 8302-2 62.25 [in_us] Bdy height pulse rate E&M - 8867-4 112 /min Heart rate temperature E&M 99.1 [degF] Body temperature weight E&M - 3141-9 121.50 [lb_av] Weight Measured Diagnostic Results Date Name Value Unit Range Description Chart Maintenance: labs entered to flowsheet - Chemistry thyroxine, serum, free 1.25 ng/dL thyroid stimulating hormone, serum 0.29 u[iU]/mL Lab Report: TSH, FREE T4 - Chemistry thyroid stimulating hormone, serum 2.76 u[iU]/mL Lab Report: UA - Chemistry protein, total urine random TRACE mg/dL Encounters Code Encounter Date Provider Facility CPT-60030 Level 3 Est. Patient 17:07:09 FREELANCE WEB DESIGNER Tor Gramajo MD [facility] CPT-53109 Level 3 Est. Patient 11:34:16 CDT Gerson EMANUEL [facility] CPT-59270 Level 3 Est. Patient 16:33:58 CDT Edyta Otto APRN [facility] CPT-93694 Level 3 Est. Patient 15:17:40 FREELANCE WEB DESIGNER Sera Mcdowell MD [facility] CPT-05183 Level 3 Est. Patient 16:32:34 FREELANCE WEB DESIGNER Sera Mcdowell MD [facility] Procedures Code Procedure Name Date Entry Date Standard Description CPT-PV Prev. Care Visit 12:33:36 FREELANCE WEB DESIGNER
--- OUTSIDE RECORDS SUMMARY | 2018-01-18 03:53 | XMS REPORT | Clinical Summary ---
Author Author Admin, WILBERT Organization [facility] Address Unknown Phone Unavailable Allergies, [...] Active Jr Morrow MD Abdominal pain, generalized DYSURIA ICD-788.1 Inactive Sera Mcdowell MD CONSTIPATION [...] Generic Name ND Status Provider Patient Instruction ZOFRAN ODT 4 MG TBDP 1 po q6hr PRN Nausea ONDANSETRON 89961188425 No Longer Active Jr Morrow MD Active EXCEDRIN MIGRAINE 250-250-65 MG TABS 1 tab po as needed [id number]-[id number] 37191862935 Active Jr Morrow MD Active ZOMIG 5 MG TABS Take 1 tablet by mouth daily as needed ZOLMITRIPTAN 38063994050 No Longer Active Jr Morrow MD Active BACTRIM DS 800-160 MG TAB 1 tab by mouth twice daily TRIMETHOPRIM-SULFAMETHOXAZOLE 27890968632 No Longer Active Tamera Mustafa MD PhD Active ZITHROMAX Z-ADALGISA 250 MG TABS 2 today, then 1 daily for 4 days 2013 AZITHROMYCIN 30006967904 No Longer Active Tor Gramajo MD Active LEVOTHYROXINE SODIUM 88 MCG TABS 1 tablet daily LEVOTHYROXINE SODIUM 20069470488 Active Tor Gramajo MD Active MINOCYCLINE HCL 50 MG CAP 1 pill by mouth daily for acne MINOCYCLINE HCL 65254158328 No Longer Active Tor Gramajo MD Active SUMATRIPTAN 20 MG/ACT SOLN 1 spray in one nostril at onset of migraine; may repeat in 2 hours if needed for continued migraine SUMATRIPTAN 39329664855 Active Tamera Mustafa MD PhD Active AXERT 12.5 MG TABS 1 tablet by mouth at onset of migraine; may repeat x 1 if headache is still present in 2 hours ALMOTRIPTAN MALATE 40880959837 No Longer Active Tamera Mustafa MD PhD Active ELIMITE 5 % CREA Apply from head to toe including scalp and soles of feet. Wash off after 8 hours. PERMETHRIN 04765467717 No Longer Active Tamera Mustafa MD PhD Active AMOXICILLIN 500 MG TABS 2 PO bid x 10 days AMOXICILLIN 20074586151 No Longer Active Tamera Mustafa MD PhD Active MAXALT 5 MG TABS 1 pill by mouth at start of migraine; may repeat x 1 if no improvement in 2 hours RIZATRIPTAN BENZOATE 04736386274 No Longer Active Tamera Mustafa MD PhD Active BACTRIM DS 800-160 MG TAB 1 tab by mouth twice daily TRIMETHOPRIM-SULFAMETHOXAZOLE 33372862935 No Longer Active Alli Frye MD Active TRI-SPRINTEC 0.18/0.215/0.25 MG-35 MCG TABS 1 po qd as directed NORGESTIM-ETH ESTRAD TRIPHASIC 03124667361 Active Gerson EMANUEL Active AXERT 6.25 MG TABS 1 pill by mouth at start of migraine; may repeat x 1 in 1 hr if needed ALMOTRIPTAN MALATE 22538327964 No Longer Active Tamera Mustafa MD PhD Active GENERESS FE 0.8-25 MG-MCG CHEW 1 daily NORETHIN-ETH ESTRADIOL-FE 83653928480 No Longer Active Tamera Mustafa MD PhD Active DOXYCYCLINE HYCLATE 50 MG CAP 1 pill by mouth daily for acne 2012 DOXYCYCLINE HYCLATE 45957478193 No Longer Active Tamera Mustafa MD PhD Active AMOXICILLIN 875 MG TABS 1 TWO TIMES A DAY AMOXICILLIN 60294847359 No Longer Active Sera Mcdowell MD Active AMOXICILLIN 875 MG TABS 1 TWO TIMES A DAY AMOXICILLIN 875 MG TABS 024170 AMOXICILLIN Inactive DOXYCYCLINE HYCLATE 50 MG CAP 1 pill by mouth daily for acne 2012 DOXYCYCLINE HYCLATE 50 MG CAP 160449 DOXYCYCLINE HYCLATE Inactive GENERESS FE 0.8-25 MG-MCG [...] in 2 hours MAXALT 5 MG TABS 896860 RIZATRIPTAN BENZOATE Inactive AMOXICILLIN 500 MG TABS 2 PO bid x 10 days AMOXICILLIN 500 MG TABS 367501 AMOXICILLIN Inactive ELIMITE 5 % CREA Apply from head to toe including scalp and soles of feet. Wash off after 8 hours. ELIMITE 5 % CREA 869949 PERMETHRIN Inactive AXERT 12.5 MG TABS 1 tablet by mouth at onset of migraine; may repeat x 1 if headache is still present in 2 hours AXERT 12.5 MG TABS ALMOTRIPTAN MALATE Inactive MINOCYCLINE HCL 50 MG CAP 1 pill by mouth daily for acne MINOCYCLINE HCL 50 MG CAP 293008 MINOCYCLINE HCL Inactive ZOMIG 5 MG TABS Take 1 tablet by mouth daily as needed ZOMIG 5 MG TABS 496786 ZOLMITRIPTAN Inactive ZOFRAN ODT 4 MG TBDP 1 po q6hr PRN Nausea ZOFRAN ODT 4 MG TBDP 159348 ONDANSETRON Inactive BACTRIM DS 800-160 MG TAB 1 tab by mouth twice daily BACTRIM DS 800-160 MG TAB TRIMETHOPRIM-SULFAMETHOXAZOLE Inactive ZITHROMAX Z-ADALGISA 250 MG TABS 2 today, then 1 daily for 4 days 2013 ZITHROMAX Z-ADALGISA 250 MG TABS 8588484 AZITHROMYCIN Inactive BACTRIM DS 800-160 MG TAB 1 tab by mouth twice daily BACTRIM DS 800-160 MG TAB TRIMETHOPRIM-SULFAMETHOXAZOLE Inactive Advance Directives Directive Description Start Date CONSENT: MEDICATION HISTORY CONSENT FOR MINOR CARE Immunizations Vaccine Administration Date Value Standard Description Adacel (Tetanus, reduced Diphtheria, and acellular Pertussis Immunization) Adacel [[id number]] tetanus toxoid, reduced diphtheria toxoid, and acellular [...] Range Description blood pressure, diastolic - 8462-4 76 mm[Hg] BP bonilla blood pressure, systolic - 8480-6 121 mm[Hg] BP sys height E&M - 8302-2 62.25 [in_us] Bdy height pulse rate E&M - 8867-4 120 /min Heart rate temperature E&M 98.9 [degF] Body temperature weight E&M - 3141-9 127 [lb_av] Weight Measured blood pressure, diastolic - 8462-4 81 mm[Hg] [...] Lab Report: CBC W/DIFF, Comp. Metabolic Panel, [facility] [place] - Chemistry sodium, serum 134 mmol/L 371-546 9493/09/10 potassium, serum 4.4 mmol/L 3.5-5.2 chloride, serum [...] Lab Report: CBC W/DIFF, Comp. Metabolic Panel, [facility] - Hematology leukocyte [...] count 245 10^3/MM^3 10*3/mm3 142-424 Lab Report: TSH, FREE T4 - Chemistry [...] Negative bilirubin, urine Negative Negative urine color Roper Colorless;Lightyellow;Straw;Yellow appearance, urine SlCloudy Clear specific gravity, urine >=1.030 1.000-1.030 pH, urine, semiquantitative 6.0 5.0-8.5 urobilinogen, urine, semiquantitative (dipstick) 1.0 Normal leukocyte esterase, urine, by dipstick Negative Negative nitrite, urine, semiquantitative Negative Negative Encounters Code Encounter Date Provider Facility CPT-85661 Level 3 Est. Patient 15:47:52 CDT Jr Morrow MD [facility] CPT-83310 Level 3 Est. Patient 17:07:09 ADMINISTRATIVE OFFICER Tor Gramajo MD [facility] CPT-58850 Level 3 Est. Patient 11:34:16 CDT Gerson EMANUEL [facility] CPT-20269 Level 3 Est. Patient 16:33:58 CDT Edyta Otto APRN [facility] CPT-18436 Level 3 Est. Patient 15:17:40 ADMINISTRATIVE OFFICER Sera Mcdowell MD [facility] CPT-30313 Level 3 Est. Patient 16:32:34 ADMINISTRATIVE OFFICER Sera Mcdowell MD [facility] Procedures Code Procedure Name Date Entry Date Standard Description CPT-37807 Abd compl w upright 16:06:21 CDT CPT-PV Prev. Care Visit 12:33:36 ADMINISTRATIVE OFFICER
--- OUTSIDE RECORDS SUMMARY | 2018-01-18 03:54 | XMS REPORT ---
Author Author [facility] Medical Staff Organization [facility] Address [address] [place], [place] [address] Phone [phone] Summary purpose TRANSITION OF CARE AUTO GENERATION [...] tests and/or laboratory data RESULTS Thyroid Testing [id number]:55:00 Result Normal Range Units TSH L 0.07 0.52-4.13 uIU/mL Free T4 1.23 0.78-1.34 ng/dl Reference Lab ([facility]) [id number]:55:00 Result Normal Range Units Thyroglobulin Ab < 1 < or=1 IU/mL Thyroglobulin L < 0.1 2.8-40.9 ng/mL This test was performed using the Janine Neelima chemiluminescent method. Values obtained from different assay methods cannot be used interchangeably. Thyroglobulin levels, regardless of value, should not be interpreted as absolute evidence of the presence or absence of disease. TEST PERFORMED AT: [facility] [address] [place] [address] KELI RIGGS DO,MPH History of procedures No procedures recorded for [...]
--- OUTSIDE RECORDS SUMMARY | 2018-01-18 03:54 | XMS REPORT ---
Author Author [facility] Medical Staff Organization [facility] Address [address] [place], [place] [address] Phone [phone] Summary purpose TRANSITION OF CARE AUTO GENERATION [...] Relevant diagnostic tests and/or laboratory data RESULTS Routine Urinalysis [id number]:55:00 Result Normal Range Units Color YELLOW Clarity Clear Specific Lolita 1.015 1.003-1.035 pH 6.0 4.5-8.0 Glucose NEGATIVE Bilirubin NEGATIVE Ketones NEGATIVE Protein NEGATIVE Urobilinogen 0.2 0-0.2 E.U./dL Nitrites NEGATIVE Blood NEGATIVE Leukocytes NEGATIVE WBCs 0-5 RBCs No RBC's Seen. Squamous Epithelial No Squamous Epithelial Cells seen. Bacteria Rare Amount Body Fluid :55:00 Result Normal Range Units pH 6.0 4.5-8.0 History of procedures No procedures recorded for [...]
--- OUTSIDE RECORDS SUMMARY | 2018-01-18 03:54 | XMS REPORT | Clinical Summary ---
Author Author Admin, WILBERT Organization [facility] Address Unknown Phone Allergies, Adverse Reactions, Alerts Allergy Name Reaction [...] Mustafa MD PhD Other acne THYROMEGALY 240.9 Active Tamera Mustafa MD PhD Goiter, unspecified right HEALTH SCREENING V70.0 Active Tamera Mustafa MD PhD Routine general medical examination at a health care facility HYPOTHYROIDISM 244.9 Active Tamera Mustafa MD PhD Unspecified hypothyroidism SCABIES 133.0 Resolved Tor Gramajo MD Scabies PHARYNGITIS 462 Active Gerson EMANUEL Acute pharyngitis Tonsillitis, acute 463 Active Tor Gramajo MD Acute tonsillitis UTI 599.0 Active Tamera Mustafa MD PhD Urinary tract infection, [...] 1 tab by mouth twice daily TRIMETHOPRIM-SULFAMETHOXAZOLE 52033886870 No Longer Active Tamera Mustafa MD PhD Active ZITHROMAX Z-ADALGISA 250 MG TABS 2 today, then 1 daily for 4 days 2013 AZITHROMYCIN 51804124876 No Longer Active Tor Gramajo MD Active LEVOTHYROXINE SODIUM 88 MCG TABS 1 tablet daily LEVOTHYROXINE SODIUM 09892835020 Active Tor Gramajo MD Active MINOCYCLINE HCL 50 MG CAP 1 pill by mouth daily for acne MINOCYCLINE HCL 11034748416 No Longer Active Tor Gramajo MD Active ZOMIG 5 MG TABS Take 1 tablet by mouth daily as needed ZOLMITRIPTAN 00756523152 Active Tamera Wang Active SUMATRIPTAN 20 MG/ACT SOLN 1 spray in one nostril at onset of migraine; may repeat in 2 hours if needed for continued migraine SUMATRIPTAN 63273675605 Active Tamera Mustafa MD PhD Active AXERT 12.5 MG TABS 1 tablet by mouth at onset of migraine; may repeat x 1 if headache is still present in 2 hours ALMOTRIPTAN MALATE 12017811953 No Longer Active Tamera Mustafa MD PhD Active ZOFRAN ODT 4 MG TBDP 1 po q6hr PRN Nausea ONDANSETRON 27868658512 Active Tamera Mustafa MD PhD Active ELIMITE 5 % CREA Apply from head to toe including scalp and soles of feet. Wash off after 8 hours. PERMETHRIN 34500679327 No Longer Active Tamera Mustafa MD PhD Active AMOXICILLIN 500 MG TABS 2 PO bid x 10 days AMOXICILLIN 96616588298 No Longer Active Tamera Mustafa MD PhD Active MAXALT 5 MG TABS 1 pill by mouth at start of migraine; may repeat x 1 if no improvement in 2 hours RIZATRIPTAN BENZOATE 15178481859 No Longer Active Tamera Mustafa MD PhD Active BACTRIM DS 800-160 MG TAB 1 tab by mouth twice daily TRIMETHOPRIM-SULFAMETHOXAZOLE 72275085081 No Longer Active Alli Frye MD Active TRI-SPRINTEC 0.18/0.215/0.25 MG-35 MCG TABS 1 po qd as directed NORGESTIM-ETH ESTRAD TRIPHASIC 61806972907 Active Gerson EMANUEL Active AXERT 6.25 MG TABS 1 pill by mouth at start of migraine; may repeat x 1 in 1 hr if needed ALMOTRIPTAN MALATE 78569519227 No Longer Active Tamera Mustafa MD PhD Active GENERESS FE 0.8-25 MG-MCG CHEW 1 daily NORETHIN-ETH ESTRADIOL-FE 12077141570 No Longer Active Tamera Mustafa MD PhD Active DOXYCYCLINE HYCLATE 50 MG CAP 1 pill by mouth daily for acne 2012 DOXYCYCLINE HYCLATE 29185102071 No Longer Active Tamera Mustafa MD PhD Active AMOXICILLIN 875 MG TABS 1 TWO TIMES A DAY AMOXICILLIN 91390234722 No Longer Active Sera Mcdowell MD Active AMOXICILLIN 875 MG TABS 1 TWO TIMES A DAY AMOXICILLIN 875 MG TABS 873303 AMOXICILLIN Inactive DOXYCYCLINE HYCLATE 50 MG CAP 1 pill by mouth daily for acne 2012 DOXYCYCLINE HYCLATE 50 MG CAP 362845 DOXYCYCLINE HYCLATE Inactive GENERESS FE 0.8-25 MG-MCG [...] in 2 hours MAXALT 5 MG TABS 707773 RIZATRIPTAN BENZOATE Inactive AMOXICILLIN 500 MG TABS 2 PO bid x 10 days AMOXICILLIN 500 MG TABS 857347 AMOXICILLIN Inactive ELIMITE 5 % CREA Apply from head to toe including scalp and soles of feet. Wash off after 8 hours. ELIMITE 5 % CREA 198762 PERMETHRIN Inactive AXERT 12.5 MG TABS 1 tablet by mouth at onset of migraine; may repeat x 1 if headache is still present in 2 hours AXERT 12.5 MG TABS ALMOTRIPTAN MALATE Inactive MINOCYCLINE HCL 50 MG CAP 1 pill by mouth daily for acne MINOCYCLINE HCL 50 MG CAP 491635 MINOCYCLINE HCL Inactive BACTRIM DS 800-160 MG TAB 1 tab by mouth twice daily BACTRIM DS 800-160 MG TAB TRIMETHOPRIM-SULFAMETHOXAZOLE Inactive ZITHROMAX Z-ADALGISA 250 MG TABS 2 today, then 1 daily for 4 days 2013 ZITHROMAX Z-ADALGISA 250 MG TABS 6886648 AZITHROMYCIN Inactive BACTRIM DS 800-160 MG TAB 1 tab by mouth twice daily BACTRIM DS 800-160 MG TAB TRIMETHOPRIM-SULFAMETHOXAZOLE Inactive Advance Directives Directive Description Start Date CONSENT: MEDICATION HISTORY CONSENT FOR MINOR CARE Immunizations Vaccine Administration Date Value Standard Description Adacel immunization Adacel [[id number]] tetanus toxoid, reduced diphtheria toxoid, and acellular pertussis vaccine, adsorbed chicken pox immunization #2 Varicella Vax varicella virus vaccine chicken pox immunization #1 Varicella Vax varicella virus vaccine DPT immunization #5 DTaP oral polio vaccine (OPV) #4 IPV poliovirus vaccine, unspecified formulation MMR virus immunization #2 MMR DPT immunization #4 DTaP oral polio vaccine (OPV) #3 OPV poliovirus vaccine, unspecified formulation MMR virus immunization #1 MMR hepatitis B vaccine [...] vaccine, unspecified formulation hepatitis B vaccine #2 Historical hepatitis B vaccine, unspecified formulation hepatitis B vaccine #1 Historical hepatitis B vaccine, unspecified formulation DPT immunization #3 DTaP Vital Signs Date Name Value Unit Range Description blood pressure, diastolic 81 mm[Hg] BP bonilla blood pressure, systolic 125 mm[Hg] BP sys height E&M 62.25 [in_us] Bdy height pulse rate E&M 112 /min Heart rate temperature E&M 99.1 [degF] Body temperature weight E&M 121.50 [lb_av] Weight Measured blood pressure, diastolic 74 mm[Hg] BP bonilla blood pressure, systolic 118 mm[Hg] BP sys height E&M 62.25 [in_us] Bdy height pulse rate E&M 72 /min Heart rate temperature E&M 98.5 [degF] Body temperature weight E&M 122.38 [lb_av] Weight Measured Diagnostic Results Date Name Value Unit Range Description Chart Maintenance: Outside labs entered on flowsheet - Chemistry thyroid stimulating hormone, serum 1.56 u[iU]/mL Lab Report: TSH, FREE T4 - Chemistry thyroid stimulating hormone, serum 2.76 u[iU]/mL Lab Report: UA - Chemistry protein, total urine random TRACE mg/dL Encounters Code Encounter Date Provider Facility CPT-46150 Level 3 Est. Patient 17:07:09 EXTRUSION PRESS SUPERVISOR Tor Gramajo MD [facility] CPT-88453 Level 3 Est. Patient 11:34:16 CDT Gerson EMANUEL [facility] CPT-55917 Level 3 Est. Patient 16:33:58 CDT Edyta Otto APRN [facility] CPT-78186 Level 3 Est. Patient 15:17:40 EXTRUSION PRESS SUPERVISOR Sera Mcdowell MD [facility] CPT-99985 Level 3 Est. Patient 16:32:34 EXTRUSION PRESS SUPERVISOR Sera Mcdowell MD [facility] Procedures Code Procedure Name Date Entry Date Standard Description CPT-PV Prev. Care Visit 12:33:36 EXTRUSION PRESS SUPERVISOR
--- OUTSIDE RECORDS SUMMARY | 2018-01-18 03:54 | XMS REPORT | Clinical Summary ---
Author Author Admin, WILBERT Organization [facility] Address Unknown Phone Unavailable Allergies, Adverse Reactions, Alerts Allergy Name Reaction Description Start Date Severity Status Provider NKDA Critical Active Gerson EMANUEL Conditions or Problems Problem Name Problem Code Onset Date Status Entry Date Provider Comment Standard Description Annotate FAMILY HISTORY OF DEPRESSION V17.0 Active Sear Mcdowell MD Family history of psychiatric condition [...] Instructions Start Date Stop Date Generic Name [facility] Status Provider Patient Instruction ZOFRAN ODT 4 MG TBDP 1 po q6hr PRN Nausea ONDANSETRON 78859425637 No Longer Active Jr Morrow MD Active EXCEDRIN MIGRAINE 250-250-65 MG TABS 1 tab po as needed [id number] 42706252851 Active Jr Morrow MD Active ZOMIG 5 MG TABS Take 1 tablet by mouth daily as needed ZOLMITRIPTAN 74901241464 No Longer Active Jr Morrow MD Active BACTRIM DS 800-160 MG TAB 1 tab by mouth twice daily TRIMETHOPRIM-SULFAMETHOXAZOLE 04615231703 No Longer Active Tamera Mustafa MD PhD Active ZITHROMAX Z-ADALGISA 250 MG TABS 2 today, then 1 daily for 4 days 2013 AZITHROMYCIN 59485478249 No Longer Active Tor Gramajo MD Active LEVOTHYROXINE SODIUM 88 MCG TABS 1 tablet daily LEVOTHYROXINE SODIUM 48206870880 Active Tor Gramajo MD Active MINOCYCLINE HCL 50 MG CAP 1 pill by mouth daily for acne MINOCYCLINE HCL 15854724613 No Longer Active Tor Gramajo MD Active SUMATRIPTAN 20 MG/ACT SOLN 1 spray in one nostril at onset of migraine; may repeat in 2 hours if needed for continued migraine SUMATRIPTAN 42313788051 Active Tamera Mustafa MD PhD Active AXERT 12.5 MG TABS 1 tablet by mouth at onset of migraine; may repeat x 1 if headache is still present in 2 hours ALMOTRIPTAN MALATE 25278276380 No Longer Active Tamera Mustafa MD PhD Active ELIMITE 5 % CREA Apply from head to toe including scalp and soles of feet. Wash off after 8 hours. PERMETHRIN 97182349342 No Longer Active Tamera Mustafa MD PhD Active AMOXICILLIN 500 MG TABS 2 PO bid x 10 days AMOXICILLIN 46560125175 No Longer Active Tamera Mustafa MD PhD Active MAXALT 5 MG TABS 1 pill by mouth at start of migraine; may repeat x 1 if no improvement in 2 hours RIZATRIPTAN BENZOATE 82489486693 No Longer Active Tamera Mustafa MD PhD Active BACTRIM DS 800-160 MG TAB 1 tab by mouth twice daily TRIMETHOPRIM-SULFAMETHOXAZOLE 90349420029 No Longer Active Alli Frye MD Active TRI-SPRINTEC 0.18/0.215/0.25 MG-35 MCG TABS 1 po qd as directed NORGESTIM-ETH ESTRAD TRIPHASIC 59768863036 Active Gerson EMANUEL Active AXERT 6.25 MG TABS 1 pill by mouth at start of migraine; may repeat x 1 in 1 hr if needed ALMOTRIPTAN MALATE 55201036836 No Longer Active Tamera Mustafa MD PhD Active GENERESS FE 0.8-25 MG-MCG CHEW 1 daily NORETHIN-ETH ESTRADIOL-FE 84909601363 No Longer Active Tamera Mustafa MD PhD Active DOXYCYCLINE HYCLATE 50 MG CAP 1 pill by mouth daily for acne 2012 DOXYCYCLINE HYCLATE 89760274977 No Longer Active Tamera Mustafa MD PhD Active AMOXICILLIN 875 MG TABS 1 TWO TIMES A DAY AMOXICILLIN 18937291740 No Longer Active Sera Mcdowell MD Active AMOXICILLIN 875 MG TABS 1 TWO TIMES A DAY AMOXICILLIN 875 MG TABS 248470 AMOXICILLIN Inactive DOXYCYCLINE HYCLATE 50 MG CAP 1 pill by mouth daily for acne 2012 DOXYCYCLINE HYCLATE 50 MG CAP 997355 DOXYCYCLINE HYCLATE Inactive GENERESS FE 0.8-25 MG-MCG [...] in 2 hours MAXALT 5 MG TABS 538859 RIZATRIPTAN BENZOATE Inactive AMOXICILLIN 500 MG TABS 2 PO bid x 10 days AMOXICILLIN 500 MG TABS 949510 AMOXICILLIN Inactive ELIMITE 5 % CREA Apply from head to toe including scalp and soles of feet. Wash off after 8 hours. ELIMITE 5 % CREA 583291 PERMETHRIN Inactive AXERT 12.5 MG TABS 1 tablet by mouth at onset of migraine; may repeat x 1 if headache is still present in 2 hours AXERT 12.5 MG TABS ALMOTRIPTAN MALATE Inactive MINOCYCLINE HCL 50 MG CAP 1 pill by mouth daily for acne MINOCYCLINE HCL 50 MG CAP 839016 MINOCYCLINE HCL Inactive ZOMIG 5 MG TABS Take 1 tablet by mouth daily as needed ZOMIG 5 MG TABS 019738 ZOLMITRIPTAN Inactive ZOFRAN ODT 4 MG TBDP 1 po q6hr PRN Nausea ZOFRAN ODT 4 MG TBDP 461481 ONDANSETRON Inactive BACTRIM DS 800-160 MG TAB 1 tab by mouth twice daily BACTRIM DS 800-160 MG TAB TRIMETHOPRIM-SULFAMETHOXAZOLE Inactive ZITHROMAX Z-ADALGISA 250 MG TABS 2 today, then 1 daily for 4 days 2013 ZITHROMAX Z-ADALGISA 250 MG TABS 8342860 AZITHROMYCIN Inactive BACTRIM DS 800-160 MG TAB 1 tab by mouth twice daily BACTRIM DS 800-160 MG TAB TRIMETHOPRIM-SULFAMETHOXAZOLE Inactive Advance Directives Directive Description Start Date CONSENT: MEDICATION HISTORY CONSENT FOR MINOR CARE Immunizations Vaccine Administration Date Value Standard Description Adacel (Tetanus, reduced Diphtheria, and acellular Pertussis Immunization) Adacel [[id number]] tetanus toxoid, reduced diphtheria toxoid, and acellular [...] mg/dL Encounters Code Encounter Date Provider Facility CPT-36903 Level 3 Est. Patient 15:47:52 CDT Jr Morrow MD [facility] CPT-51404 Level 3 Est. Patient 17:07:09 PUBLICITY DIRECTOR Tor Gramajo MD [facility] CPT-16191 Level 3 Est. Patient 11:34:16 CDT Gerson EMANUEL [facility] CPT-49897 Level 3 Est. Patient 16:33:58 CDT Edyta Otto APRN [facility] CPT-75533 Level 3 Est. Patient 15:17:40 PUBLICITY DIRECTOR Sera Mcdowell MD [facility] CPT-82350 Level 3 Est. Patient 16:32:34 PUBLICITY DIRECTOR Sera Mcdowell MD [facility] Procedures Code Procedure Name Date Entry Date Standard Description CPT-39038 Abd compl w upright 16:06:21 CDT CPT-PV Prev. Care Visit 12:33:36 PUBLICITY DIRECTOR
--- OUTSIDE RECORDS SUMMARY | 2018-01-18 03:54 | XMS REPORT ---
Author Author [facility] Medical Staff Organization [facility] Address [address] [place], [place] [address] Phone [phone] Care Team Providers Care Counter Pocket Trimmer Name Role Phone TAMARA SPENCER, KATIE PP [phone] Summary purpose TRANSITION OF CARE AUTO GENERATION [...] tests and/or laboratory data RESULTS Thyroid Testing [id number]:00 Result Normal Range Units TSH L 0.09 0.52-4.13 uIU/mL Free T4 1.28 0.78-1.34 ng/dl History of procedures No procedures [...]
--- OUTSIDE RECORDS SUMMARY | 2018-01-18 03:54 | XMS REPORT ---
Author Author [facility] Medical Staff Organization [facility] Address [address] [place] [id number] Phone [phone] Summary purpose TRANSITION OF CARE AUTO GENERATION [...] tests and/or laboratory data RESULTS Routine Urinalysis [id number]:00 Result Normal Range Units Color YELLOW Clarity Clear Specific Guinda 1.015 1.003-1.035 pH 6.0 4.5-8.0 Glucose NEGATIVE Bilirubin NEGATIVE Ketones NEGATIVE Protein NEGATIVE Urobilinogen 0.2 0-0.2 E.U./dL Nitrites NEGATIVE Blood NEGATIVE Leukocytes NEGATIVE WBCs 0-5 RBCs No RBC's Seen. Squamous Epithelial No Squamous Epithelial Cells seen. Bacteria Rare Amount Body Fluid [id number]:00 Result Normal Range Units pH 6.0 4.5-8.0 History of procedures Procedure Code Code Type Description Date Performed Performing Physician [id number] CPT-4 URINALYSIS, AUTO W/SCOPE 09-26-2015 TEETEE MORALES Functional status No functional or cognitive status [...]
--- OUTSIDE RECORDS SUMMARY | 2018-01-18 03:55 | XMS REPORT | Clinical Summary ---
Author Author Admin, WILBERT Organization [facility] Address Unknown Phone Allergies, Adverse Reactions, Alerts [...] 1 tab by mouth twice daily TRIMETHOPRIM-SULFAMETHOXAZOLE 91750166032 No Longer Active Tamera Mustafa MD PhD Active ZITHROMAX Z-ADALGISA 250 MG TABS 2 today, then 1 daily for 4 days 2013 AZITHROMYCIN 50400275574 No Longer Active Tor Gramajo MD Active LEVOTHYROXINE SODIUM 88 MCG TABS 1 tablet daily LEVOTHYROXINE SODIUM 03834263069 Active Tor Gramajo MD Active MINOCYCLINE HCL 50 MG CAP 1 pill by mouth daily for acne MINOCYCLINE HCL 30258449963 No Longer Active Tor Gramajo MD Active ZOMIG 5 MG TABS Take 1 tablet by mouth daily as needed ZOLMITRIPTAN 15085962061 Active Tamera Wang Active SUMATRIPTAN 20 MG/ACT SOLN 1 spray in one nostril at onset of migraine; may repeat in 2 hours if needed for continued migraine SUMATRIPTAN 50263124395 Active Tamera Mustafa MD PhD Active AXERT 12.5 MG TABS 1 tablet by mouth at onset of migraine; may repeat x 1 if headache is still present in 2 hours ALMOTRIPTAN MALATE 77045476113 No Longer Active Tamera Mustafa MD PhD Active ZOFRAN ODT 4 MG TBDP 1 po q6hr PRN Nausea ONDANSETRON 69915654901 Active Tamera Mustafa MD PhD Active ELIMITE 5 % CREA Apply from head to toe including scalp and soles of feet. Wash off after 8 hours. PERMETHRIN 91007293894 No Longer Active Tamera Mustafa MD PhD Active AMOXICILLIN 500 MG TABS 2 PO bid x 10 days AMOXICILLIN 77759220630 No Longer Active Tamera Mustafa MD PhD Active MAXALT 5 MG TABS 1 pill by mouth at start of migraine; may repeat x 1 if no improvement in 2 hours RIZATRIPTAN BENZOATE 56862593618 No Longer Active Tamera Msutafa MD PhD Active BACTRIM DS 800-160 MG TAB 1 tab by mouth twice daily TRIMETHOPRIM-SULFAMETHOXAZOLE 65064677070 No Longer Active Alli Frye MD Active TRI-SPRINTEC 0.18/0.215/0.25 MG-35 MCG TABS 1 po qd as directed NORGESTIM-ETH ESTRAD TRIPHASIC 22338050249 Active Gerson EMANUEL Active AXERT 6.25 MG TABS 1 pill by mouth at start of migraine; may repeat x 1 in 1 hr if needed ALMOTRIPTAN MALATE 87842502577 No Longer Active Tamera Mustafa MD PhD Active GENERESS FE 0.8-25 MG-MCG CHEW 1 daily NORETHIN-ETH ESTRADIOL-FE 17214842761 No Longer Active Tamera Mustafa MD PhD Active DOXYCYCLINE HYCLATE 50 MG CAP 1 pill by mouth daily for acne 2012 DOXYCYCLINE HYCLATE 61309013770 No Longer Active Tamera Mustafa MD PhD Active AMOXICILLIN 875 MG TABS 1 TWO TIMES A DAY AMOXICILLIN 31886868396 No Longer Active Sera Mcdowell MD Active AMOXICILLIN 875 MG TABS 1 TWO TIMES A DAY AMOXICILLIN 875 MG TABS 267690 AMOXICILLIN Inactive DOXYCYCLINE HYCLATE 50 MG CAP 1 pill by mouth daily for acne 2012 DOXYCYCLINE HYCLATE 50 MG CAP 377030 DOXYCYCLINE HYCLATE Inactive GENERESS FE 0.8-25 MG-MCG [...] in 2 hours MAXALT 5 MG TABS 073653 RIZATRIPTAN BENZOATE Inactive AMOXICILLIN 500 MG TABS 2 PO bid x 10 days AMOXICILLIN 500 MG TABS 156784 AMOXICILLIN Inactive ELIMITE 5 % CREA Apply from head to toe including scalp and soles of feet. Wash off after 8 hours. ELIMITE 5 % CREA 598367 PERMETHRIN Inactive AXERT 12.5 MG TABS 1 tablet by mouth at onset of migraine; may repeat x 1 if headache is still present in 2 hours AXERT 12.5 MG TABS ALMOTRIPTAN MALATE Inactive MINOCYCLINE HCL 50 MG CAP 1 pill by mouth daily for acne MINOCYCLINE HCL 50 MG CAP 106734 MINOCYCLINE HCL Inactive BACTRIM DS 800-160 MG TAB 1 tab by mouth twice daily BACTRIM DS 800-160 MG TAB TRIMETHOPRIM-SULFAMETHOXAZOLE Inactive ZITHROMAX Z-ADALGISA 250 MG TABS 2 today, then 1 daily for 4 days 2013 ZITHROMAX Z-ADALGISA 250 MG TABS 7318188 AZITHROMYCIN Inactive BACTRIM DS 800-160 MG TAB 1 tab by mouth twice daily BACTRIM DS 800-160 MG TAB TRIMETHOPRIM-SULFAMETHOXAZOLE Inactive Advance Directives Directive Description Start Date CONSENT: MEDICATION HISTORY CONSENT FOR MINOR CARE Immunizations Vaccine Administration Date Value Standard Description Adacel immunization Adacel [[id number]] tetanus toxoid, reduced diphtheria toxoid, and acellular [...] mg/dL Encounters Code Encounter Date Provider Facility CPT-23968 Level 3 Est. 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 Patient 11:34:16 CDT Gerson EMANUEL [facility] CPT-14104 Level 3 Est. Patient 16:33:58 CDT Edyta Otto APRN [facility] CPT-08178 Level 3 Est. Patient 15:17:40 SUPERVISOR STAVE FINISHING Sera Mcdowell MD [facility] CPT-69090 Level 3 Est. Patient 16:32:34 SUPERVISOR STAVE FINISHING Sera Mcdowell MD [facility] Procedures Code Procedure Name Date Entry Date Standard Description CPT-PV Prev. Care Visit 12:33:36 SUPERVISOR STAVE FINISHING
--- OUTSIDE RECORDS SUMMARY | 2018-01-18 03:55 | XMS REPORT | Clinical Summary ---
Author Author Admin, WILBERT Organization [facility] Address Unknown Phone Allergies, Adverse Reactions, [...] 1 tab by mouth twice daily TRIMETHOPRIM-SULFAMETHOXAZOLE 11978827480 No Longer Active Tamera Mustafa MD PhD Active ZITHROMAX Z-ADALGISA 250 MG TABS 2 today, then 1 daily for 4 days 2013 AZITHROMYCIN 29447956428 No Longer Active Tor Gramajo MD Active LEVOTHYROXINE SODIUM 88 MCG TABS 1 tablet daily LEVOTHYROXINE SODIUM 44093314853 Active Tor Gramajo MD Active MINOCYCLINE HCL 50 MG CAP 1 pill by mouth daily for acne MINOCYCLINE HCL 03292677501 No Longer Active Tor Gramajo MD Active ZOMIG 5 MG TABS Take 1 tablet by mouth daily as needed ZOLMITRIPTAN 21068725574 Active Tamera Wang Active SUMATRIPTAN 20 MG/ACT SOLN 1 spray in one nostril at onset of migraine; may repeat in 2 hours if needed for continued migraine SUMATRIPTAN 70729285121 Active Tamera Mustafa MD PhD Active AXERT 12.5 MG TABS 1 tablet by mouth at onset of migraine; may repeat x 1 if headache is still present in 2 hours ALMOTRIPTAN MALATE 71003791705 No Longer Active Tamera Mustafa MD PhD Active ZOFRAN ODT 4 MG TBDP 1 po q6hr PRN Nausea ONDANSETRON 24413886198 Active Tamera Mustafa MD PhD Active ELIMITE 5 % CREA Apply from head to toe including scalp and soles of feet. Wash off after 8 hours. PERMETHRIN 48104686823 No Longer Active Tamera Mustafa MD PhD Active AMOXICILLIN 500 MG TABS 2 PO bid x 10 days AMOXICILLIN 25907048731 No Longer Active Tamera Mustafa MD PhD Active MAXALT 5 MG TABS 1 pill by mouth at start of migraine; may repeat x 1 if no improvement in 2 hours RIZATRIPTAN BENZOATE 92266716934 No Longer Active Tamera Mustafa MD PhD Active BACTRIM DS 800-160 MG TAB 1 tab by mouth twice daily TRIMETHOPRIM-SULFAMETHOXAZOLE 20304669222 No Longer Active Alli Frye MD Active TRI-SPRINTEC 0.18/0.215/0.25 MG-35 MCG TABS 1 po qd as directed NORGESTIM-ETH ESTRAD TRIPHASIC 90111902750 Active Gerson EMANUEL Active AXERT 6.25 MG TABS 1 pill by mouth at start of migraine; may repeat x 1 in 1 hr if needed ALMOTRIPTAN MALATE 00017975036 No Longer Active Tamera Mustafa MD PhD Active GENERESS FE 0.8-25 MG-MCG CHEW 1 daily NORETHIN-ETH ESTRADIOL-FE 07086760478 No Longer Active Tamera Mustafa MD PhD Active DOXYCYCLINE HYCLATE 50 MG CAP 1 pill by mouth daily for acne 2012 DOXYCYCLINE HYCLATE 81352582861 No Longer Active Tamera Mustafa MD PhD Active AMOXICILLIN 875 MG TABS 1 TWO TIMES A DAY AMOXICILLIN 28249905408 No Longer Active Sera Mcdowell MD Active AMOXICILLIN 875 MG TABS 1 TWO TIMES A DAY AMOXICILLIN 875 MG TABS 470342 AMOXICILLIN Inactive DOXYCYCLINE HYCLATE 50 MG CAP 1 pill by mouth daily for acne 2012 DOXYCYCLINE HYCLATE 50 MG CAP 429801 DOXYCYCLINE HYCLATE Inactive GENERESS FE 0.8-25 MG-MCG [...] in 2 hours MAXALT 5 MG TABS 642119 RIZATRIPTAN BENZOATE Inactive AMOXICILLIN 500 MG TABS 2 PO bid x 10 days AMOXICILLIN 500 MG TABS 071069 AMOXICILLIN Inactive ELIMITE 5 % CREA Apply from head to toe including scalp and soles of feet. Wash off after 8 hours. ELIMITE 5 % CREA 839043 PERMETHRIN Inactive AXERT 12.5 MG TABS 1 tablet by mouth at onset of migraine; may repeat x 1 if headache is still present in 2 hours AXERT 12.5 MG TABS ALMOTRIPTAN MALATE Inactive MINOCYCLINE HCL 50 MG CAP 1 pill by mouth daily for acne MINOCYCLINE HCL 50 MG CAP 534324 MINOCYCLINE HCL Inactive BACTRIM DS 800-160 MG TAB 1 tab by mouth twice daily BACTRIM DS 800-160 MG TAB TRIMETHOPRIM-SULFAMETHOXAZOLE Inactive ZITHROMAX Z-ADALGISA 250 MG TABS 2 today, then 1 daily for 4 days 2013 ZITHROMAX Z-ADALGISA 250 MG TABS 1423677 AZITHROMYCIN Inactive BACTRIM DS 800-160 MG TAB 1 tab by mouth twice daily BACTRIM DS 800-160 MG TAB TRIMETHOPRIM-SULFAMETHOXAZOLE Inactive Advance Directives Directive Description Start Date CONSENT: MEDICATION HISTORY CONSENT FOR MINOR CARE Immunizations Vaccine Administration Date Value Standard Description Adacel immunization Adacel [[id number]] tetanus toxoid, reduced diphtheria toxoid, and acellular [...] mg/dL Encounters Code Encounter Date Provider Facility CPT-74027 Level 3 Est. Patient 17:07:09 DIRECTOR MORTGAGE Tor Gramajo MD [facility] CPT-31320 Level 3 Est. Patient 11:34:16 CDT Gerson EMANUEL [facility] CPT-82622 Level 3 Est. Patient 16:33:58 CDT Edyta Otto APRN [facility] CPT-05613 Level 3 Est. Patient 15:17:40 DIRECTOR MORTGAGE Sera Mcdowell MD [facility] CPT-01534 Level 3 Est. Patient 16:32:34 DIRECTOR MORTGAGE Sera Mcdowell MD [facility] Procedures Code Procedure Name Date Entry Date Standard Description CPT-PV Prev. Care Visit 12:33:36 DIRECTOR MORTGAGE
--- OUTSIDE RECORDS SUMMARY | 2018-01-18 03:56 | XMS REPORT | Clinical Summary ---
Author Author Admin, WILBERT Organization [facility] Address Unknown Phone Unavailable Allergies, [...] generalized CARDIAC ARRHYTHMIA, INTERMITTENT ICD-427.9 Inactive Sera Mcdwoell MD DYSURIA ICD-788.1 Inactive Sera Mcdowell MD [...] Instructions Start Date Stop Date Generic Name [facility] Status Provider Patient Instruction ZOFRAN ODT 4 MG TBDP 1 po q6hr PRN Nausea ONDANSETRON [id number] No Longer Active Jr Morrow MD Active EXCEDRIN MIGRAINE 250-250-65 MG TABS 1 tab po as needed [id number] Active Jr Morrow MD Active ZOMIG 5 MG TABS Take 1 tablet by mouth daily as needed ZOLMITRIPTAN 22043147851 No Longer Active Jr Morrow MD Active BACTRIM DS 800-160 MG TAB 1 tab by mouth twice daily TRIMETHOPRIM-SULFAMETHOXAZOLE 87714522377 No Longer Active Tamera Mustafa MD PhD Active ZITHROMAX Z-ADALGISA 250 MG TABS 2 today, then 1 daily for 4 days 2013 AZITHROMYCIN 35734616097 No Longer Active Tor Gramajo MD Active LEVOTHYROXINE SODIUM 88 MCG TABS 1 tablet daily LEVOTHYROXINE SODIUM 57003691815 Active Tor Gramajo MD Active MINOCYCLINE HCL 50 MG CAP 1 pill by mouth daily for acne MINOCYCLINE HCL 23734897490 No Longer Active Tor Gramajo MD Active SUMATRIPTAN 20 MG/ACT SOLN 1 spray in one nostril at onset of migraine; may repeat in 2 hours if needed for continued migraine SUMATRIPTAN 06517347089 Active Tamera Mustafa MD PhD Active AXERT 12.5 MG TABS 1 tablet by mouth at onset of migraine; may repeat x 1 if headache is still present in 2 hours ALMOTRIPTAN MALATE 07358905465 No Longer Active Tamera Mustafa MD PhD Active ELIMITE 5 % CREA Apply from head to toe including scalp and soles of feet. Wash off after 8 hours. PERMETHRIN 77053681825 No Longer Active Tamera Mustafa MD PhD Active AMOXICILLIN 500 MG TABS 2 PO bid x 10 days AMOXICILLIN 52159761308 No Longer Active Tamera Mustafa MD PhD Active MAXALT 5 MG TABS 1 pill by mouth at start of migraine; may repeat x 1 if no improvement in 2 hours RIZATRIPTAN BENZOATE 05211294144 No Longer Active Tamera Mustafa MD PhD Active BACTRIM DS 800-160 MG TAB 1 tab by mouth twice daily TRIMETHOPRIM-SULFAMETHOXAZOLE 17222808811 No Longer Active Alli Frye MD Active TRI-SPRINTEC 0.18/0.215/0.25 MG-35 MCG TABS 1 po qd as directed NORGESTIM-ETH ESTRAD TRIPHASIC 41416438991 Active Gerson EMANUEL Active AXERT 6.25 MG TABS 1 pill by mouth at start of migraine; may repeat x 1 in 1 hr if needed ALMOTRIPTAN MALATE 41932904225 No Longer Active Tamera Mustafa MD PhD Active GENERESS FE 0.8-25 MG-MCG CHEW 1 daily NORETHIN-ETH ESTRADIOL-FE 20231774892 No Longer Active Tamera Mustafa MD PhD Active DOXYCYCLINE HYCLATE 50 MG CAP 1 pill by mouth daily for acne 2012 DOXYCYCLINE HYCLATE 35223102802 No Longer Active Tamera Mustafa MD PhD Active AMOXICILLIN 875 MG TABS 1 TWO TIMES A DAY AMOXICILLIN 16735163233 No Longer Active Sera Mcdowell MD Active AMOXICILLIN 875 MG TABS 1 TWO TIMES A DAY AMOXICILLIN 875 MG TABS 133245 AMOXICILLIN Inactive DOXYCYCLINE HYCLATE 50 MG CAP 1 pill by mouth daily for acne 2012 DOXYCYCLINE HYCLATE 50 MG CAP 242673 DOXYCYCLINE HYCLATE Inactive GENERESS FE 0.8-25 MG-MCG [...] in 2 hours MAXALT 5 MG TABS 345282 RIZATRIPTAN BENZOATE Inactive AMOXICILLIN 500 MG TABS 2 PO bid x 10 days AMOXICILLIN 500 MG TABS 766409 AMOXICILLIN Inactive ELIMITE 5 % CREA Apply from head to toe including scalp and soles of feet. Wash off after 8 hours. ELIMITE 5 % CREA 843355 PERMETHRIN Inactive AXERT 12.5 MG TABS 1 tablet by mouth at onset of migraine; may repeat x 1 if headache is still present in 2 hours AXERT 12.5 MG TABS ALMOTRIPTAN MALATE Inactive MINOCYCLINE HCL 50 MG CAP 1 pill by mouth daily for acne MINOCYCLINE HCL 50 MG CAP 795155 MINOCYCLINE HCL Inactive ZOMIG 5 MG TABS Take 1 tablet by mouth daily as needed ZOMIG 5 MG TABS 617475 ZOLMITRIPTAN Inactive ZOFRAN ODT 4 MG TBDP 1 po q6hr PRN Nausea ZOFRAN ODT 4 MG TBDP 327348 ONDANSETRON Inactive BACTRIM DS 800-160 MG TAB 1 tab by mouth twice daily BACTRIM DS 800-160 MG TAB TRIMETHOPRIM-SULFAMETHOXAZOLE Inactive ZITHROMAX Z-ADALGISA 250 MG TABS 2 today, then 1 daily for 4 days 2013 ZITHROMAX Z-ADALGISA 250 MG TABS 5057490 AZITHROMYCIN Inactive BACTRIM DS 800-160 MG TAB 1 tab by mouth twice daily BACTRIM DS 800-160 MG TAB TRIMETHOPRIM-SULFAMETHOXAZOLE Inactive Advance Directives Directive Description Start Date CONSENT: MEDICATION HISTORY CONSENT FOR MINOR CARE Immunizations Vaccine Administration Date Value Standard Description Adacel immunization Adacel [[id number]] tetanus toxoid, reduced diphtheria toxoid, and acellular [...] Value Unit Range Description blood pressure, diastolic 76 mm[Hg] BP bonilla blood pressure, systolic 121 mm[Hg] BP sys height E&M 62.25 [in_us] Bdy height pulse rate E&M 120 /min Heart rate temperature E&M 98.9 [degF] Body temperature weight E&M 127 [lb_av] Weight Measured blood pressure, diastolic 81 mm[Hg] BP bonilla blood pressure, systolic 125 mm[Hg] BP sys height E&M 62.25 [in_us] Bdy height pulse rate E&M 112 /min Heart rate temperature E&M 99.1 [degF] Body temperature weight E&M 121.50 [lb_av] Weight Measured Diagnostic Results Date Name Value Unit Range Description Chart Maintenance: labs entered to [facility]Trump[facility] Search - Chemistry thyroxine, serum, free 1.25 ng/dL thyroid stimulating hormone, serum 0.29 u[iU]/mL Lab Report: CBC W/DIFF, Comp. [place] [facility] [place] Chemistry sodium, serum 134 mmol/L 612-769 2651/09/10 potassium, serum 4.4 mmol/L 3.5-5.2 chloride, serum [...] CBC W/DIFF, Comp. [place], [facility] [place] Hematology leukocyte count, blood 18.3 10^3/MM^3 [...] Negative bilirubin, urine Negative Negative urine color Quentin Colorless;Lightyellow;Straw;Yellow appearance, urine SlCloudy Clear specific gravity, urine >=1.030 1.000-1.030 pH, urine, semiquantitative 6.0 5.0-8.5 urobilinogen, urine, semiquantitative (dipstick) 1.0 Normal leukocyte esterase, urine, by dipstick Negative Negative nitrite, urine, semiquantitative Negative Negative Encounters Code Encounter Date Provider Facility CPT-18282 Level 3 Est. Patient 15:47:52 CDT Jr Morrow MD [facility] CPT-99748 Level 3 Est. 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 Patient 11:34:16 CDT Gerson EMANUEL [facility] CPT-77323 Level 3 Est. Patient 16:33:58 CDT Edyta Otto APRN [facility] CPT-71520 Level 3 Est. Patient 15:17:40 HAND ALTERATIONS SEAMSTRESS Sera Mcdowell MD [facility] CPT-15113 Level 3 Est. Patient 16:32:34 HAND ALTERATIONS SEAMSTRESS Sera Mcdowell MD [facility] Procedures Code Procedure Name Date Entry Date Standard Description CPT-36649 Abd compl w upright 16:06:21 CDT CPT-PV Prev. Care Visit 12:33:36 HAND ALTERATIONS SEAMSTRESS
--- OUTSIDE RECORDS SUMMARY | 2018-01-18 03:56 | XMS REPORT ---
Author Author [facility] Medical [facility] Organization [facility] Address [address] [place], [place] [address] Phone [phone] Summary purpose TRANSITION OF CARE AUTO GENERATION [...] tests and/or laboratory data RESULTS Thyroid Testing [id number]:57:00 Result Normal Range Units TSH L 0.11 0.52-4.13 uIU/mL Free T4 1.15 0.78-1.34 ng/dl History of procedures Procedure Code Code Type Description Date Performed Performing Physician 66289 CPT-4 ASSAY THYROID STIM HORMONE 08-16-2015 ALIS MONTIEL 74767 CPT-4 ASSAY OF FREE THYROXINE 08-16-2015 ALIS MONTIEL 92688 CPT-4 ROUTINE VENIPUNCTURE 08-16-2015 ALIS MONTIEL Functional status No functional or [...]
--- OUTSIDE RECORDS SUMMARY | 2018-01-18 03:56 | XMS REPORT | Clinical Summary ---
Author Author Admin, WILBERT Organization [facility] Address Unknown Phone Unavailable Allergies, Adverse [...] Instructions Start Date Stop Date Generic Name [facility] Status Provider Patient Instruction ZOFRAN ODT 4 MG TBDP 1 po q6hr PRN Nausea ONDANSETRON 72150429832 No Longer Active Jr Morrow MD Active EXCEDRIN MIGRAINE 250-250-65 MG TABS 1 tab po as needed [id number] 96262694826 Active Jr Morrow MD Active ZOMIG 5 MG TABS Take 1 tablet by mouth daily as needed ZOLMITRIPTAN 04201971098 No Longer Active Jr Morrow MD Active BACTRIM DS 800-160 MG TAB 1 tab by mouth twice daily TRIMETHOPRIM-SULFAMETHOXAZOLE 09607022798 No Longer Active Tamera Mustafa MD PhD Active ZITHROMAX Z-ADALGISA 250 MG TABS 2 today, then 1 daily for 4 days 2013 AZITHROMYCIN 88163616240 No Longer Active Tor Gramajo MD Active LEVOTHYROXINE SODIUM 88 MCG TABS 1 tablet daily LEVOTHYROXINE SODIUM 75309462810 Active Tor Gramajo MD Active MINOCYCLINE HCL 50 MG CAP 1 pill by mouth daily for acne MINOCYCLINE HCL 29185158210 No Longer Active Tor Gramajo MD Active SUMATRIPTAN 20 MG/ACT SOLN 1 spray in one nostril at onset of migraine; may repeat in 2 hours if needed for continued migraine SUMATRIPTAN 80288402645 Active Tamera Mustafa MD PhD Active AXERT 12.5 MG TABS 1 tablet by mouth at onset of migraine; may repeat x 1 if headache is still present in 2 hours ALMOTRIPTAN MALATE 78047099793 No Longer Active Tamera Mustafa MD PhD Active ELIMITE 5 % CREA Apply from head to toe including scalp and soles of feet. Wash off after 8 hours. PERMETHRIN 31553737522 No Longer Active Tamera Mustafa MD PhD Active AMOXICILLIN 500 MG TABS 2 PO bid x 10 days AMOXICILLIN 23854248264 No Longer Active Tamera Mustafa MD PhD Active MAXALT 5 MG TABS 1 pill by mouth at start of migraine; may repeat x 1 if no improvement in 2 hours RIZATRIPTAN BENZOATE 81337627867 No Longer Active Tamera Mustafa MD PhD Active BACTRIM DS 800-160 MG TAB 1 tab by mouth twice daily TRIMETHOPRIM-SULFAMETHOXAZOLE 19760142254 No Longer Active Alli Frye MD Active TRI-SPRINTEC 0.18/0.215/0.25 MG-35 MCG TABS 1 po qd as directed NORGESTIM-ETH ESTRAD TRIPHASIC 26388639479 Active Gerson EMANUEL Active AXERT 6.25 MG TABS 1 pill by mouth at start of migraine; may repeat x 1 in 1 hr if needed ALMOTRIPTAN MALATE 95773711007 No Longer Active Tamera Mustafa MD PhD Active GENERESS FE 0.8-25 MG-MCG CHEW 1 daily NORETHIN-ETH ESTRADIOL-FE 67627076775 No Longer Active Tamera Mustafa MD PhD Active DOXYCYCLINE HYCLATE 50 MG CAP 1 pill by mouth daily for acne 2012 DOXYCYCLINE HYCLATE 68161056966 No Longer Active Tamera Mustafa MD PhD Active AMOXICILLIN 875 MG TABS 1 TWO TIMES A DAY AMOXICILLIN 10113565785 No Longer Active Sera Mcdowell MD Active AMOXICILLIN 875 MG TABS 1 TWO TIMES A DAY AMOXICILLIN 875 MG TABS 369438 AMOXICILLIN Inactive DOXYCYCLINE HYCLATE 50 MG CAP 1 pill by mouth daily for acne 2012 DOXYCYCLINE HYCLATE 50 MG CAP 914780 DOXYCYCLINE HYCLATE Inactive GENERESS FE 0.8-25 MG-MCG [...] in 2 hours MAXALT 5 MG TABS 892382 RIZATRIPTAN BENZOATE Inactive AMOXICILLIN 500 MG TABS 2 PO bid x 10 days AMOXICILLIN 500 MG TABS 894836 AMOXICILLIN Inactive ELIMITE 5 % CREA Apply from head to toe including scalp and soles of feet. Wash off after 8 hours. ELIMITE 5 % CREA 584045 PERMETHRIN Inactive AXERT 12.5 MG TABS 1 tablet by mouth at onset of migraine; may repeat x 1 if headache is still present in 2 hours AXERT 12.5 MG TABS ALMOTRIPTAN MALATE Inactive MINOCYCLINE HCL 50 MG CAP 1 pill by mouth daily for acne MINOCYCLINE HCL 50 MG CAP 733026 MINOCYCLINE HCL Inactive ZOMIG 5 MG TABS Take 1 tablet by mouth daily as needed ZOMIG 5 MG TABS 169441 ZOLMITRIPTAN Inactive ZOFRAN ODT 4 MG TBDP 1 po q6hr PRN Nausea ZOFRAN ODT 4 MG TBDP 499323 ONDANSETRON Inactive BACTRIM DS 800-160 MG TAB 1 tab by mouth twice daily BACTRIM DS 800-160 MG TAB TRIMETHOPRIM-SULFAMETHOXAZOLE Inactive ZITHROMAX Z-ADALGISA 250 MG TABS 2 today, then 1 daily for 4 days 2013 ZITHROMAX Z-ADALGISA 250 MG TABS 8995304 AZITHROMYCIN Inactive BACTRIM DS 800-160 MG TAB 1 tab by mouth twice daily BACTRIM DS 800-160 MG TAB TRIMETHOPRIM-SULFAMETHOXAZOLE Inactive Advance Directives Directive Description Start Date CONSENT: MEDICATION HISTORY CONSENT FOR MINOR CARE Immunizations Vaccine Administration Date Value Standard Description Adacel (Tetanus, reduced Diphtheria, and acellular Pertussis Immunization) Adacel [[id number]] tetanus toxoid, reduced diphtheria toxoid, and acellular [...] Maintenance: labs entered to flowsheet - Chemistry thyroid stimulating hormone, serum 0.29 u[iU]/mL thyroxine, serum, free 1.25 ng/dL Lab Report: CBC W/DIFF, Comp. Metabolic Panel, [facility] [place] - Chemistry sodium, serum 134 mmol/L 946-311 4601/09/10 potassium, serum 4.4 mmol/L 3.5-5.2 chloride, serum [...] Lab Report: CBC W/DIFF, Comp. Metabolic Panel, [facility] [place] - Hematology leukocyte count, blood 18.3 10^3/MM^3 [...] Negative bilirubin, urine Negative Negative urine color [place] Colorless;Lightyellow;Straw;Yellow appearance, urine SlCloudy Clear specific gravity, urine >=1.030 1.000-1.030 pH, urine, semiquantitative 6.0 5.0-8.5 urobilinogen, urine, semiquantitative (dipstick) 1.0 Normal leukocyte esterase, urine, by dipstick Negative Negative nitrite, urine, semiquantitative Negative Negative Encounters Code Encounter Date Provider Facility CPT-76545 Level 3 Est. Patient 15:47:52 CDT Jr Morrow MD [facility] CPT-27969 Level 3 Est. 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 Patient 11:34:16 CDT Gerson EMANUEL [facility] CPT-84807 Level 3 Est. Patient 16:33:58 CDT Edyta Otto APRN [facility] CPT-27398 Level 3 Est. Patient 15:17:40 ASSISTANT CHIEF TRAIN DISPATCHER Sera Mcdowell MD [facility] CPT-87268 Level 3 Est. Patient 16:32:34 ASSISTANT CHIEF TRAIN DISPATCHER Sera Mcdowell MD [facility] Procedures Code Procedure Name Date Entry Date Standard Description CPT-71689 Abd compl w upright 16:06:21 CDT CPT-PV Prev. Care Visit 12:33:36 ASSISTANT CHIEF TRAIN DISPATCHER
--- OUTSIDE RECORDS SUMMARY | 2018-01-18 03:57 | XMS REPORT ---
Author Author [facility] Medical Staff Organization [id number] Address [address] [place], [place] [address] Phone [phone] Summary purpose TRANSITION OF CARE AUTO GENERATION [...] tests and/or laboratory data RESULTS Thyroid Testing [id number]:55:00 Result Normal Range Units TSH L 0.07 0.52-4.13 uIU/mL Free T4 1.23 0.78-1.34 ng/dl History of procedures No procedures [...]
--- OUTSIDE RECORDS SUMMARY | 2018-01-18 03:57 | XMS REPORT | Continuity of Care Document ---
Demographics x Preferred Language Unknown Marital Status Unknown Tenriism Affiliation Unknown Race Unknown Ethnic Group Unknown Author Author [facility] Organization [facility] Address Unknown Phone Unavailable Allergies Active Description Code Type Severity Reaction Onset Reported/Identified Relationship to Patient Clinical Status Yes No known drug allergies [id number] ND N/A N/A Yes No Known Medication Allergies Drug N/A N/A Medications There is no data. Problems Date Dx Coded Attending Type Code Diagnosis Diagnosed By 09/13/2013 KATIE MCDONALD 788.1 DYSURIA 02/05/2015 KATIE MCDONALD 244.9 HYPOTHYROIDISM NOS 04/19/2017 G47.00 Insomnia Procedures Code Description [place] [address] URINALYSIS, AUTO W/SCOPE 09/13/2013 26834 ROUTINE VENIPUNCTURE 02/05/2015 71780 ASSAY OF FREE THYROXINE 02/05/2015 03095 ASSAY THYROID STIM HORMONE 02/05/2015 64114 FREE ASSAY (FT-3) 02/05/2015 57903 ROUTINE VENIPUNCTURE 08/16/2015 60133 ASSAY OF FREE THYROXINE 08/16/2015 45768 ASSAY THYROID STIM HORMONE 08/16/2015 56345 URINALYSIS, AUTO W/SCOPE 09/26/2015 Results Test Result Range UA - 09/13/13 00:00 PH 6.0 4.5-8.0 SG 1.020 1.003-1.035 UABILI NEGATIVE UABLD 3+ UACOLOR YEL UAGLU NEGATIVE UAKET NEGATIVE UALEUK NEGATIVE UANIT NEGATIVE UAURO 0.2 0-0.2 CLARITY HAZY PROTEIN TRACE UA WBC R510 UA RBC TNTC SQUAMOUS EPITHELIAL CELLS FEW BACTERIA OCC FREE T4 - 12/15/13 00:00 FT4 1.25 NG/DL 0.76-1.46 TSH - 12/15/13 00:00 TSH 0.29 UIUML 0.36-3.74 UA - 01/10/14 00:00 PH 7.0 4.5-8.0 SG 1.005 UABILI NEGATIVE UABLD 1+ UACOLOR COLORL UAGLU NEGATIVE UAKET NEGATIVE UALEUK TRACE UANIT NEGATIVE UAURO 0.2 0-0.2 CLARITY HAZY PROTEIN NEGATIVE UA WBC R2030 UA RBC R05 SQUAMOUS EPITHELIAL CELLS 2+ BACTERIA 2+ CHLAMYDIA GC DNA - 01/10/14 00:00 CHLGCU1 NOT DETECTED NOT DETECTED CHLGCU2 NOT DETECTED NOT DETECTED NOTES: SEE NOTE FREE T4 - 02/05/15 00:00 FT4 1.28 NG/DL 0.78-1.34 TSH - 02/05/15 00:00 TSH 0.09 UIUML 0.52-4.13 FREE T3 - 02/05/15 00:00 FT3 3.1 pg/mL 2.9-4.6 THYROGLOBULIN PANEL - 02/05/15 00:00 THYROGP1 < 1 IU/mL < or=1 THYROGP2 < 0.1 ng/mL 2.8-40.9 FREE T4 - 02/09/15 00:00 FT4 1.23 NG/DL 0.78-1.34 TSH - 02/09/15 00:00 TSH 0.07 UIUML 0.52-4.13 THYROGLOBULIN PANEL - 02/09/15 00:00 THYROGP1 < 1 IU/mL < or=1 THYROGP2 < 0.1 ng/mL 2.8-40.9 FREE T4 - 08/16/15 00:00 FT4 1.15 NG/DL 0.78-1.34 TSH - 08/16/15 00:00 TSH 0.11 UIUML 0.52-4.13 UA - 09/26/15 00:00 PH 6.0 4.5-8.0 SG 1.015 1.003-1.035 UABILI NEGATIVE UABLD NEGATIVE UACOLOR YEL UAGLU NEGATIVE UAKET NEGATIVE UALEUK NEGATIVE UANIT NEGATIVE UAURO 0.2 0-0.2 UCX NO CLARITY CL PROTEIN NEGATIVE UA WBC R05 UA RBC NORBC SQUAMOUS EPITHELIAL CELLS NOSQUAM BACTERIA RARE Encounters ACCT No. Visit Date/Time Discharge Status Pt. Type Provider Facility Loc./Unit Complaint [id number] 09/26/2015 10:31:00 09/26/2015 10:31:00 DIS Outpatient TEETEE MORALES [facility] [id number] 08/16/2015 18:47:00 08/16/2015 18:47:00 DIS Outpatient ALIS MONTIEL [facility] [id number] 02/09/2015 18:45:00 02/09/2015 18:45:00 [facility] [id number] 02/05/2015 14:03:00 02/05/2015 14:03:00 DIS Outpatient KATIE MCDONALD [facility] [id number] 01/10/2014 00:00:00 01/10/2014 00:00:00 DIS Outpatient STEPHANI ARGUETA [facility] [id number] 09/13/2013 11:36:00 09/13/2013 11:36:00 DIS Outpatient KATIE MCDONALD [facility] [id number] 04/09/2015 00:00:00 Document Registration [id number] 04/09/2015 00:00:00 Document Registration [id number] 04/09/2014 00:00:00 Document Registration [id number] 04/09/2014 00:00:00 Document Registration [id number] 04/09/2013 00:00:00 Document Registration [id number] 04/09/2013 00:00:00 Document Registration [id number] 04/09/2013 00:00:00 Document Registration [id number] 11/21/2017 13:03:22 11/21/2017 23:59:59 [facility] [id number] 07/13/2017 13:13:15 07/13/2017 23:59:59 [facility] [id number] 03/23/2017 08:55:27 03/23/2017 23:59:59 DIS Outpatient TEETEE MORALES [facility] RAD dysphagia, hx of thyroid ca, thyroidectomy [id number] 06/17/2016 11:01:01 06/17/2016 23:59:59 CLS Outpatient [facility]ANKALGE[facility] labwork [id number] 10/23/2014 17:18:00 10/23/2014 17:18:00 DIS Outpatient KARNCHANASORN, RUDRUIDEE [facility] [id number] 04/28/2017 15:20:00 ACT Unknown [id number] 01/04/2017 12:35:20 ACT Document Registration [id number] 04/09/2014 00:00:00 Document Registration
--- OUTSIDE RECORDS SUMMARY | 2018-01-18 03:57 | XMS REPORT | Clinical Summary ---
Author Author Admin, WILBERT Organization [facility] Address Unknown Phone Unavailable Allergies, Adverse Reactions, [...] Instructions Start Date Stop Date Generic Name [facility] Status Provider Patient Instruction ZOFRAN ODT 4 MG TBDP 1 po q6hr PRN Nausea ONDANSETRON [id number] No Longer Active Jr Morrow MD Active EXCEDRIN MIGRAINE 250-250-65 MG TABS 1 tab po as needed [id number] Active Jr Morrow MD Active ZOMIG 5 MG TABS Take 1 tablet by mouth daily as needed ZOLMITRIPTAN 92784751571 No Longer Active Jr Morrow MD Active BACTRIM DS 800-160 MG TAB 1 tab by mouth twice daily TRIMETHOPRIM-SULFAMETHOXAZOLE 72643798051 No Longer Active Tamera Mustafa MD PhD Active ZITHROMAX Z-ADALGISA 250 MG TABS 2 today, then 1 daily for 4 days 2013 AZITHROMYCIN 49278210342 No Longer Active Tor Gramajo MD Active LEVOTHYROXINE SODIUM 88 MCG TABS 1 tablet daily LEVOTHYROXINE SODIUM 93209176165 Active Tor Gramajo MD Active MINOCYCLINE HCL 50 MG CAP 1 pill by mouth daily for acne MINOCYCLINE HCL 88277309259 No Longer Active Tor Gramajo MD Active SUMATRIPTAN 20 MG/ACT SOLN 1 spray in one nostril at onset of migraine; may repeat in 2 hours if needed for continued migraine SUMATRIPTAN 54127042229 Active Tamera Mustafa MD PhD Active AXERT 12.5 MG TABS 1 tablet by mouth at onset of migraine; may repeat x 1 if headache is still present in 2 hours ALMOTRIPTAN MALATE 53815651051 No Longer Active Tamera Mustafa MD PhD Active ELIMITE 5 % CREA Apply from head to toe including scalp and soles of feet. Wash off after 8 hours. PERMETHRIN 54230911748 No Longer Active Tamera Mustafa MD PhD Active AMOXICILLIN 500 MG TABS 2 PO bid x 10 days AMOXICILLIN 80577071802 No Longer Active Tamera Mustafa MD PhD Active MAXALT 5 MG TABS 1 pill by mouth at start of migraine; may repeat x 1 if no improvement in 2 hours RIZATRIPTAN BENZOATE 70366899183 No Longer Active Tamera Mustafa MD PhD Active BACTRIM DS 800-160 MG TAB 1 tab by mouth twice daily TRIMETHOPRIM-SULFAMETHOXAZOLE 40482826152 No Longer Active Alli Frye MD Active TRI-SPRINTEC 0.18/0.215/0.25 MG-35 MCG TABS 1 po qd as directed NORGESTIM-ETH ESTRAD TRIPHASIC 02725407307 Active Gerson EMANUEL Active AXERT 6.25 MG TABS 1 pill by mouth at start of migraine; may repeat x 1 in 1 hr if needed ALMOTRIPTAN MALATE 29680740863 No Longer Active Tamera Mustafa MD PhD Active GENERESS FE 0.8-25 MG-MCG CHEW 1 daily NORETHIN-ETH ESTRADIOL-FE 59187466106 No Longer Active Tamera Mustafa MD PhD Active DOXYCYCLINE HYCLATE 50 MG CAP 1 pill by mouth daily for acne 2012 DOXYCYCLINE HYCLATE 48271328186 No Longer Active Tamera Mustafa MD PhD Active AMOXICILLIN 875 MG TABS 1 TWO TIMES A DAY AMOXICILLIN 59275829966 No Longer Active Sera Mcdowell MD Active AMOXICILLIN 875 MG TABS 1 TWO TIMES A DAY AMOXICILLIN 875 MG TABS 378236 AMOXICILLIN Inactive DOXYCYCLINE HYCLATE 50 MG CAP 1 pill by mouth daily for acne 2012 DOXYCYCLINE HYCLATE 50 MG CAP 298474 DOXYCYCLINE HYCLATE Inactive GENERESS FE 0.8-25 MG-MCG [...] in 2 hours MAXALT 5 MG TABS 319945 RIZATRIPTAN BENZOATE Inactive AMOXICILLIN 500 MG TABS 2 PO bid x 10 days AMOXICILLIN 500 MG TABS 046276 AMOXICILLIN Inactive ELIMITE 5 % CREA Apply from head to toe including scalp and soles of feet. Wash off after 8 hours. ELIMITE 5 % CREA 979653 PERMETHRIN Inactive AXERT 12.5 MG TABS 1 tablet by mouth at onset of migraine; may repeat x 1 if headache is still present in 2 hours AXERT 12.5 MG TABS ALMOTRIPTAN MALATE Inactive MINOCYCLINE HCL 50 MG CAP 1 pill by mouth daily for acne MINOCYCLINE HCL 50 MG CAP 282727 MINOCYCLINE HCL Inactive ZOMIG 5 MG TABS Take 1 tablet by mouth daily as needed ZOMIG 5 MG TABS 729025 ZOLMITRIPTAN Inactive ZOFRAN ODT 4 MG TBDP 1 po q6hr PRN Nausea ZOFRAN ODT 4 MG TBDP 397877 ONDANSETRON Inactive BACTRIM DS 800-160 MG TAB 1 tab by mouth twice daily BACTRIM DS 800-160 MG TAB TRIMETHOPRIM-SULFAMETHOXAZOLE Inactive ZITHROMAX Z-ADALGISA 250 MG TABS 2 today, then 1 daily for 4 days 2013 ZITHROMAX Z-ADALGISA 250 MG TABS 8531577 AZITHROMYCIN Inactive BACTRIM DS 800-160 MG TAB 1 tab by mouth twice daily BACTRIM DS 800-160 MG TAB TRIMETHOPRIM-SULFAMETHOXAZOLE Inactive Advance Directives Directive Description Start Date CONSENT: MEDICATION HISTORY CONSENT FOR MINOR CARE Immunizations Vaccine Administration Date Value Standard Description Adacel (Tetanus, reduced Diphtheria, and acellular Pertussis Immunization) Adacel [EQR633] tetanus toxoid, reduced diphtheria toxoid, and acellular [...] Lab Report: CBC W/DIFF, Comp. Metabolic Panel, [facility] - Chemistry sodium, serum 134 mmol/L 519-206 7962/09/10 potassium, serum 4.4 mmol/L 3.5-5.2 chloride, serum [...] Lab Report: CBC W/DIFF, Comp. Metabolic Panel, [facility] - Hematology leukocyte count, blood 18.3 10^3/MM^3 [...] Negative bilirubin, urine Negative Negative urine color Bells Colorless;Lightyellow;Straw;Yellow appearance, urine SlCloudy Clear specific gravity, urine >=1.030 1.000-1.030 pH, urine, semiquantitative 6.0 5.0-8.5 urobilinogen, urine, semiquantitative (dipstick) 1.0 Normal leukocyte esterase, urine, by dipstick Negative Negative nitrite, urine, semiquantitative Negative Negative Encounters Code Encounter Date Provider Facility CPT-86017 Level 3 Est. Patient 15:47:52 CDT Jr Morrow MD [facility] CPT-62914 Level 3 Est. 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 Patient 11:34:16 CDT Gerson EMANUEL [facility] CPT-64030 Level 3 Est. Patient 16:33:58 CDT Edyta Otto APRN [facility] CPT-23847 Level 3 Est. 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
--- OUTSIDE RECORDS SUMMARY | 2018-01-18 03:57 | XMS REPORT ---
Author Author [facility] Organization [facility] Address [address] [place], [place] [address] Phone [phone] Care Team Providers Care Power Generating Plant Operator Name Role Phone TAMARA SPENCER, KATIE PP [phone] Summary purpose TRANSITION OF CARE AUTO GENERATION Chief Complaint and Reason for Visit Admit Diagnosis 1 HYPOTHYROIDISM NOS Problem list No authorized problems tracked for [...] tests and/or laboratory data RESULTS Thyroid Testing [id number]:00 Result Normal Range Units TSH L 0.09 0.52-4.13 uIU/mL Free T4 1.28 0.78-1.34 ng/dl Free T3 3.1 2.9-4.6 pg/mL TEST PERFORMED AT: [facility] [address] [place] [address] KELI RIGGS DO,MP[facility] ([facility]) [id number]:00 Result Normal Range Units Thyroglobulin Ab < 1 < or=1 IU/mL Thyroglobulin L < 0.1 2.8-40.9 ng/mL This test was performed using the Janine [place] chemiluminescent method. Values obtained from different assay methods cannot be used interchangeably. Thyroglobulin levels, regardless of value, should not be interpreted as absolute evidence of the presence or absence of disease. TEST PERFORMED AT: [facility] [address] [place] [address] KELI RIGGS DO,MPH History of procedures Procedure Code Code Type Description Date Performed Performing Physician 00438 CPT-4 ROUTINE VENIPUNCTURE 02-05-2015 KATIE MCDONALD 55645 CPT-4 ASSAY OF FREE THYROXINE 02-05-2015 KATIE MCDONALD 24288 CPT-4 ASSAY THYROID STIM HORMONE 02-05-2015 KATIE MCDONALD 23286 CPT-4 FREE ASSAY (FT-3) 02-05-2015 KATIE MCDONALD Functional status No functional or cognitive status [...]
[2018-01-18] MEDS ORDERED: KETOROLAC 30 MG/ML VIAL IVP ONE (04:15)
[2018-01-18 04:16] LABS: BASOPHILS % (AUTO) 0 % (0-10); EOSINOPHILS # (AUTO) 0.1 10^3/uL (0.0-0.3); EOSINOPHILS % (AUTO) 1 % (0-10); HEMATOCRIT 37 % (35-52); HEMOGLOBIN 12.8 G/DL (11.5-16.0); LYMPHOCYTES # (AUTO) 1.1 X 10^3 (1.0-4.0); LYMPHOCYTES % (AUTO) 7 % (12-44); MEAN CORPUSCULAR HEMOGLOBIN 30 PG (25-34); MEAN CORPUSCULAR HGB CONC 34 G/DL (32-36); MEAN CORPUSCULAR VOLUME 87 FL (80-99); MEAN PLATELET VOLUME 11.3 FL (7.4-10.4); MONOCYTES # (AUTO) 1.2 X 10^3 (0.0-1.0); MONOCYTES % (AUTO) 8 % (0-12); NEUTROPHILS # (AUTO) 12.4 X 10^3 (1.8-7.8); NEUTROPHILS % (AUTO) 84 % (42-75); PLATELET COUNT 246 10^3/uL (130-400); RED CELL DISTRIBUTION WIDTH 12.9 % (10.0-14.5); WHITE BLOOD COUNT 14.7 10^3/uL (4.3-11.0)
[2018-01-18] MEDS: NS IV 1000 ML 1,000 ML IV ONE (04:24)
[2018-01-18 04:26] LABS: BILIRUBIN,URINE NEGATIVE (NEGATIVE); CLARITY,URINE CLEAR; COLOR,URINE YELLOW; GLUCOSE, URINE (UA) NEGATIVE (NEGATIVE); KETONES,URINE NEGATIVE (NEGATIVE); LEUKOCYTE ESTERASE ,URINE NEGATIVE (NEGATIVE); NITRITE,URINE NEGATIVE (NEGATIVE); PH,URINE 7 (5-9); PROTEIN,URINE 1+ (NEGATIVE); UROBILINOGEN,URINE NORMAL (NORMAL)
[2018-01-18 04:30] LABS: ALANINE AMINOTRANSFERASE 18 U/L (0-55); ALBUMIN 3.8 GM/DL (3.2-4.5); ALKALINE PHOSPHATASE 96 U/L (40-136); BILIRUBIN,TOTAL 0.6 MG/DL (0.1-1.0); BUN/CREATININE RATIO 5; CALCIUM 9.5 MG/DL (8.5-10.1); CARBON DIOXIDE 22 MMOL/L (21-32); CHLORIDE 97 MMOL/L (98-107); CREATININE SERUM 0.79 MG/DL (0.60-1.30); GFR ESTIMATED > 60; GLUCOSE 127 MG/DL (70-105); LIPASE 15 U/L (8-78); MAGNESIUM 1.9 MG/DL (1.8-2.4); POTASSIUM 2.9 MMOL/L (3.6-5.0); SODIUM 131 MMOL/L (135-145); TOTAL PROTEIN 7.2 GM/DL (6.4-8.2)
[2018-01-18 04:31] LABS: BAND NEUTROPHILS 15 %; LYMPHOCYTES % (MANUAL) 9 %; MONOCYTES % (MANUAL) 5 %; NEUTROPHILS % (MANUAL) 71 %
[2018-01-18 04:32] LABS: RBC MORPH NORMAL
[2018-01-18 04:38] LABS: BACTERIA,URINE TRACE /HPF
[2018-01-18] MEDS ORDERED: NS W/KCL 20 MEQ/L 1,000 ML IV ONE (04:45)
[2018-01-18] MEDS ORDERED: HYOSCYAMINE 0.125 MG (LEVSIN) TAB SL ONE (04:45)
[2018-01-18 05:25] LABS: FREE T4 (FREE THYROXINE) 1.12 NG/DL (0.70-1.48)
--- NOTE | 2018-01-18 05:42 | ED Abdominal Pain ---
General Chief Complaint: Abdominal/GI Problems Stated Complaint: ABD PAIN,N/V/D Nursing Triage Note: AMBULATORY TO ED C/O ABD PAIN STARTED ON THURSDAY. WENT TO URGENT CARE 01/17 AND STATES SHE WAS GIVEN AMITRIPTYLINE. STATES SHE COULD NOT EAT YESTERDAY AND FEELS BLOATED. Sepsis Screen: No Definite Risk Source of Information: Patient Exam Limitations: No Limitations History of Present Illness Date Seen by Provider: Jan 18, 2018 Time Seen by Provider: 03:59 Initial Comments This 22-year-old young lady presents to the emergency room with complaints of a generalized abdominal pain, nausea, vomiting, diarrhea, and bloating since January 14. She went to an urgent care facility and received Zofran and Imodium. This did improve the nausea somewhat but the pain is constant. She has had subjective fevers with diaphoresis. Her last menstrual period was about 20 days ago. She denies any urinary or vaginal symptoms including hematuria, vaginal discharge, dysuria, or pain with intercourse. Allergies and Home Medications Allergies Coded Allergies: No Known Drug Allergies (Unverified , 01/18/18) Patient Home Medication List Home Medication List Reviewed: Yes Review of Systems Review of Systems Constitutional: see HPI EENTM: No Symptoms Reported Respiratory: No Symptoms Reported Cardiovascular: No Symptoms Reported Gastrointestinal: See HPI Genitourinary: No Symptoms Reported Musculoskeletal: no symptoms reported Skin: no symptoms reported Psychiatric/Neurological: No Symptoms Reported Endocrine: No Symptoms Reported Hematologic/Lymphatic: No Symptoms Reported All Other Systems Reviewed Negative Unless Noted: Yes Past Stbcnho-Zemnfj-Rspivq Hx Patient Social History Alcohol Use: Denies Use Recreational Drug Use: Yes (MARIJUANA) Smoking Status: Never a Smoker Recent Foreign Travel: No Contact w/Someone Who Travel: No Recent Infectious Disease Expo: No Recent Hopitalizations: No Immunizations Up To Date Tetanus Booster (TDap): Unknown Seasonal Allergies Seasonal Allergies: No Past Medical History Surgeries: Yes (ESOPHAGEAL DUPLICATION) Thyroidectomy Respiratory: No Cardiac: Yes Hypertension Neurological: Yes Headaches /Migraines Reproductive Disorders: No Genitourinary: No Gastrointestinal: No Musculoskeletal: No Endocrine: Yes Hypothyroidsim HEENT: No Cancer: Yes Thyroid Did You Recieve Any Treatments: Yes What Type of Treatment Did You: Surgical Intervention Psychosocial: Yes (PMDD) Bipolar Blood Disorders: No Physical Exam Vital Signs Vital Signs - First Documented 01/18/18 03:18 Temp 99.2 Pulse 104 Resp 17 B/P (MAP) 122/73 (89) O2 Delivery Room Air Capillary Refill : Less Than 3 Seconds Height/Weight/BMI Height: 5'3.00" Weight: 140lbs. oz. 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-XII nml as tested, no motor/sensory deficits, alert, normal mood/affect, oriented x 3 Skin: normal color, warm/dry Progress/Results/Core Measures Results/Orders Lab Results Laboratory Tests Test 01/18/18 03:15 01/18/18 03:31 Range/Units Urine Color YELLOW Urine Clarity CLEAR Urine pH 7 5-9 Urine Specific Nitro 1.005 L 1.016-1.022 Urine Protein 1+ H NEGATIVE Urine Glucose (UA) NEGATIVE NEGATIVE Urine Ketones NEGATIVE NEGATIVE Urine Nitrite NEGATIVE NEGATIVE Urine Bilirubin NEGATIVE NEGATIVE Urine Urobilinogen NORMAL NORMAL MG/DL Urine Leukocyte Esterase NEGATIVE NEGATIVE Urine RBC (Auto) 4+ H NEGATIVE Urine RBC 2-5 H /HPF Urine WBC NONE /HPF Urine Squamous Epithelial Cells 5-10 /HPF Urine Crystals NONE /LPF Urine Bacteria TRACE /HPF Urine Casts NONE /LPF Urine Mucus NEGATIVE /LPF Urine Culture Indicated NO White Blood Count 14.7 H 4.3-11.0 10^3/uL Red Blood Count 4.30 L 4.35-5.85 10^6/uL Hemoglobin 12.8 11.5-16.0 G/DL Hematocrit 37 35-52 % Mean Corpuscular Volume 87 80-99 FL Mean Corpuscular Hemoglobin 30 25-34 PG Mean Corpuscular Hemoglobin Concent 34 32-36 G/DL Red Cell Distribution Width 12.9 10.0-14.5 % Platelet Count 246 130-400 10^3/uL Mean Platelet Volume 11.3 H 7.4-10.4 FL Neutrophils (%) (Auto) 84 H 42-75 % Lymphocytes (%) (Auto) 7 L 12-44 % Monocytes (%) (Auto) 8 0-12 % Eosinophils (%) (Auto) 1 0-10 % Basophils (%) (Auto) 0 0-10 % Neutrophils # (Auto) 12.4 H 1.8-7.8 X 10^3 Lymphocytes # (Auto) 1.1 1.0-4.0 X 10^3 Monocytes # (Auto) 1.2 H 0.0-1.0 X 10^3 Eosinophils # (Auto) 0.1 0.0-0.3 10^3/uL Basophils # (Auto) 0.0 0.0-0.1 10^3/uL Neutrophils % (Manual) 71 % Lymphocytes % (Manual) 9 % Monocytes % (Manual) 5 % Band Neutrophils 15 % Blood Morphology Comment NORMAL Sodium Level 131 L 135-145 MMOL/L Potassium Level 2.9 L 3.6-5.0 MMOL/L Chloride Level 97 L 98-107 MMOL/L Carbon Dioxide Level 22 21-32 MMOL/L Anion Gap 12 5-14 MMOL/L Blood Urea Nitrogen 4 L 7-18 MG/DL Creatinine 0.79 0.60-1.30 MG/DL Estimat Glomerular Filtration Rate > 60 BUN/Creatinine Ratio 5 Glucose Level 127 H 70-105 MG/DL Calcium Level 9.5 8.5-10.1 MG/DL Corrected Calcium 9.7 8.5-10.1 MG/DL Magnesium Level 1.9 1.8-2.4 MG/DL Total Bilirubin 0.6 0.1-1.0 MG/DL Aspartate Amino Transf (AST/SGOT) 19 5-34 U/L Alanine Aminotransferase (ALT/SGPT) 18 0-55 U/L Alkaline Phosphatase 96 40-136 U/L C-Reactive Protein High Sensitivity 39.38 H 0.00-0.50 MG/DL Total Protein 7.2 6.4-8.2 GM/DL Albumin 3.8 3.2-4.5 GM/DL Lipase 15 8-78 U/L Thyroid Stimulating Hormone (TSH) 35.51 H 0.35-4.94 UIU/ML Free Thyroxine 1.12 0.70-1.48 NG/DL Serum Test, Qualitative NEGATIVE NEGATIVE My Orders Orders - KRUNAL LIM MD Cbc With Automated Diff (01/18/18 04:08) Comprehensive Metabolic Panel (01/18/18 04:08) Hcg,Qualitative Serum (01/18/18 04:08) Lipase (01/18/18 04:08) Magnesium (01/18/18 04:08) Saline Lock/Iv-Start (01/18/18 04:08) Ns Iv 1000 Ml (Sodium Chloride 0.9%) (01/18/18 04:08) Ketorolac Injection (Toradol Injection) (01/18/18 04:15) Hs C Reactive Protein (01/18/18 04:08) Ua Culture If Indicated (01/18/18 04:10) Manual Differential (01/18/18 03:31) Ns W/Kcl 20 Meq/L (Ns Iv W/Kcl 20 Meq/L) (01/18/18 04:45) Hyoscyamine Sl Tablet (Levsin Sl Tablet) (01/18/18 04:45) Ct Abdomen/Pelvis W (01/18/18 04:43) Thyroid Stimulating Hormone (01/18/18 04:50) Free T4 (Free Thyroxine) (01/18/18 04:50) Piperacillin Sodium/Tazobactam (Zosyn Vi (01/18/18 06:30) Medications Given in ED Current Medications Medications Dose Ordered Sig/Magan Route Start Time Stop Time Status Last Admin Dose Admin Hyoscyamine Sulfate 0.25 mg ONCE ONCE SL 01/18/18 04:45 01/18/18 04:46 DC 01/18/18 04:49 0.25 MG Ketorolac Tromethamine 15 mg ONCE ONCE IVP 01/18/18 04:15 01/18/18 04:16 DC 01/18/18 04:24 15 MG Piperacillin Sod/ Tazobactam Sod 4.5 gm/Sodium Chloride 100 ml @ 200 mls/hr ONCE ONCE IV 01/18/18 06:30 01/18/18 06:59 01/18/18 06:27 200 MLS/HR Potassium Chloride/Sodium Chloride 1,000 ml @ 500 mls/hr Q2H ONCE IV 01/18/18 04:45 01/18/18 06:44 01/18/18 05:00 500 MLS/HR Sodium Chloride 1,000 ml @ 0 mls/hr Q0M ONCE IV 01/18/18 04:08 01/18/18 04:11 DC 01/18/18 04:24 999 MLS/HR Vital Signs/I&O 01/18/18 03:18 Temp 99.2 Pulse 104 Resp 17 B/P (MAP) 122/73 (89) O2 Delivery Room Air Blood Pressure Mean: 89 Urine -Bedside: Negative Progress Progress Note #1: Time: 04:45 Progress Note Patient received Toradol for pain. Labs were reviewed. Patient has a leukocytosis and elevated CRP. In the context of these lab findings, it was felt appropriate to offer CT scan. After discussion of risks and benefits, patient elects to proceed with CT imaging. Levsin was ordered for patient's complaint of cramping. A liter of IV normal saline had been ordered. Patient was found to be hypokalemic. Normal saline was switched out for saline containing potassium. Progress Note #2: Time: 06:[address] report was called from [facility]. There was concern for acute appendicitis with possible rupture. Progress Note #3: Time: 06:33 Progress Note Case discussed with Dr. Duval would like to patient admitted with a single dose of Zosyn. He did not feel blood cultures were necessary at this time. Patient is relatively comfortable as long as she is not moving. She declines further pain medication. Diagnostic Imaging Diagonstic Imaging: CT Plain Films/CT/US/NM/MRI: abdomen, pelvis Comments CT abdomen and pelvis viewed by me and the [facility] report reviewed. There is concern for inflammatory changes in the pelvis with possible acute appendicitis with perforation. Findings were discussed with the radiologist directly. Departure Communication (Admissions) Time/Spoke to Admitting Phy: 06:20 Dr. Duval Impression Primary Impression: Acute appendicitis Qualified Codes: K35.2 - Acute appendicitis with generalized peritonitis Additional Impressions: Nausea vomiting and diarrhea Hypokalemia Disposition: ADMITTED INPATIENT Condition: Improved Admissions Decision to Admit Reason: Admit from ER (General) Decision to Admit/Date: Jan 18, 2018 Time/Decision to Admit Time: 06:10 Departure-Patient Inst. Referrals: NO,LOCAL PHYSICIAN (PCP) Primary Care Physician KRUNAL LIM MD Jan 18, 2018 05:42
[2018-01-18] MEDS ORDERED: PIPERACILLIN SODIUM/TAZOBACTAM 4.5 GM in NS (IVPB) 100 ML IV ONE (06:30)
--- NOTE | 2018-01-18 07:06 | Diagnostic Imaging Report ---
PROCEDURE: CT abdomen and pelvis with contrast. TECHNIQUE: Multiple contiguous axial images were obtained through the abdomen and pelvis after administration of intravenous contrast. INDICATION: Abdominal bloating Comparison study: None Findings: Examination demonstrates the appendix to be thickened measuring 1 cm with surrounding inflammation. Some ascites is present. No loculated fluid collections or free air are present. Air-fluid levels are present within the bowel with some mildly distended loops of small bowel consistent with an associated ileus. There is some thickening of the wall of the dome of the bladder probably secondary to the adjacent inflammation. Uterus and adnexal structures are normal. Fluid is present in the colon consistent with diarrheal state. Impression: Ruptured appendicitis is present with small to moderate amount of free fluid in the pelvis. An associated ileus is seen. There is mild thickening of the adjacent bladder and some bowel loops. Findings agree with [facility] report. Dictated by: Dictated on workstation # [id number]
--- OUTSIDE RECORDS SUMMARY | 2018-01-18 07:54 | XMS REPORT | Continuity of Care Document ---
Demographics x Preferred Language Unknown Marital Status Unknown Zoroastrianism Affiliation Unknown Race Unknown Ethnic Group Unknown Author Author [facility] Organization [facility] Address Unknown Phone Unavailable Allergies Active Description Code Type Severity Reaction Onset Reported/Identified Relationship to Patient Clinical Status Yes No known drug allergies [id number] ND N/A N/A Yes No Known Medication Allergies Drug N/A N/A Medications There is no data. Problems Date Dx Coded Attending Type Code Diagnosis Diagnosed By 09/13/2013 KATIE MCDONALD 788.1 DYSURIA 02/05/2015 KATIE MCDONALD 244.9 HYPOTHYROIDISM NOS 04/19/2017 G47.00 Insomnia Procedures Code Description [place] [address] URINALYSIS, AUTO W/SCOPE 09/13/2013 13912 ROUTINE VENIPUNCTURE 02/05/2015 68663 ASSAY OF FREE THYROXINE 02/05/2015 68956 ASSAY THYROID STIM HORMONE 02/05/2015 96151 FREE ASSAY (FT-3) 02/05/2015 98630 ROUTINE VENIPUNCTURE 08/16/2015 99572 ASSAY OF FREE THYROXINE 08/16/2015 35223 ASSAY THYROID STIM HORMONE 08/16/2015 78980 URINALYSIS, AUTO W/SCOPE 09/26/2015 Results Test Result [...] Status Pt. Type Provider Facility Loc./Unit Complaint [id number] 09/26/2015 10:31:00 09/26/2015 10:31:00 DIS Outpatient TEETEE MORALES [facility] [id number] 08/16/2015 18:47:00 08/16/2015 18:47:00 DIS Outpatient ALIS MONTIEL [facility] [id number] 02/09/2015 18:45:00 02/09/2015 18:45:00 [facility] [id number] 02/05/2015 14:03:00 02/05/2015 14:03:00 DIS Outpatient KATIE MCDONALD [facility] [id number] 01/10/2014 00:00:00 01/10/2014 00:00:00 DIS Outpatient STEPHANI ARGUETA [facility] [id number] 09/13/2013 11:36:00 09/13/2013 11:36:00 DIS Outpatient KATIE MCDONALD [facility] [id number] 04/09/2015 00:00:00 Document Registration [id number] 04/09/2015 00:00:00 Document Registration [id number] 04/09/2014 00:00:00 Document Registration [id number] 04/09/2014 00:00:00 Document Registration [id number] 04/09/2013 00:00:00 Document Registration [id number] 04/09/2013 00:00:00 Document Registration [id number] 04/09/2013 00:00:00 Document Registration [id number] 11/21/2017 13:03:22 11/21/2017 23:59:59 [facility] [id number] 07/13/2017 13:13:15 07/13/2017 23:59:59 [facility] [id number] 03/23/2017 08:55:27 03/23/2017 23:59:59 DIS Outpatient TEETEE MORALES [facility] [place] [facility] dysphagia, hx of thyroid ca, thyroidectomy [id number] 06/17/2016 11:01:01 06/17/2016 23:59:59 CLS Outpatient MELVIHANKALGEORGE [facility] labwork [id number] 10/23/2014 17:18:00 10/23/2014 17:18:00 DIS Outpatient KARNCHANASORN, RUDRUIDEE [facility] [id number] 04/28/2017 15:20:00 ACT Unknown [id number] 01/04/2017 12:35:20 ACT Document Registration [id number] 04/09/2014 00:00:00 Document Registration
[2018-01-18 08:00] VITALS: BP 111/55
[2018-01-18] MEDS ORDERED: ONDANSETRON 4 MG/2 ML (SDV) Z0FRAN IVP PRN ×2 (08:45→14:00)
[2018-01-18] MEDS: fentaNYL INJECTION 100 MCG/2 ML AMP IV PRN ×2 (08:52→10:57)
[2018-01-18] MEDS: NS W/KCL 40 MEQ/L 1,000 ML IV SCH ×2 (09:10→18:58)
[2018-01-18] MEDS: POTASSIUM CL 10MEQ/50ML IVPB 50 ML IV SCH ×3 (09:10→11:32)
--- NOTE | 2018-01-18 09:21 | History & Physicial ---
History of Present Illness History of Present Illness Reason for visit/HPI 4 days history of lower abdominal pain, anorexia, followed by diarrhea, leading to an ER visit. Evaluation shows impression of appendicitis with early perforation.She is severely hypokalemic, which is being addressed prior to surgery.previous history of total thyroidectomy with thyroxine replacement at 137 g per day. TSH elevated and therefore additional intravenous thyroxine would be administered Date of Admission Jan 18, 2018 at 07:10 Date Seen by Provider: Jan 18, 2018 Time Seen by Provider: 07:55 I consulted on this patient on 01/18/18 09:17 Attending Physician Christin Fitzgerald MD Admitting Physician No,Local Physician Consult Allergies and Home Medications Allergies Coded Allergies: No Known Drug Allergies (Unverified , 01/18/18) Patient Home Medication List Home Medication List Reviewed: Yes Past Fzzxbnk-Zipgfl-Nfbkth Hx Patient Social History Marrital Status: single Employed/Student: employed Alcohol Use: Denies Use Recreational Drug Use: Yes (MARIJUANA) Smoking Status: Never a Smoker Physical Abuse Screen: No Sexual Abuse: No Recent Foreign Travel: No Contact w/other who traveled: No Recent Hopitalizations: No Recent Infectious Disease Expo: No Immunizations Up To Date Tetanus Booster (TDap): Unknown Seasonal Allergies Seasonal Allergies: No Surgeries Yes (ESOPHAGEAL DUPLICATION, WHEN 18 YRS OLD REMOVED REST OF THYRIOD) Abdominal, Thyroidectomy Respiratory No Cardiovascular Yes (HEART MUMMUR AT ( IT CLOSED)) Hypertension Neurological Yes Headaches /Migraines Reproductive System Hx Reproductive Disorders: No Genitourinary No Gastrointestinal No Musculoskeletal No Endocrine History of Endocrine Disorders: Yes Endocrine Disorders: Hypothyroidsim HEENT History of HEENT Disorders: No Cancer Yes Thyroid Did You Recieve Any Treatments: Yes Type of Treatment: Surgical Intervention Psychosocial History of Psychiatric Problem: Yes (PMDD) Behavioral Health Disorders: Bipolar Blood Transfusions History of Blood Disorders: No Family Medical History Family Hx: DEP Diabetes mellitus 19 FATHER FH: depression 19 MOTHER Review of Systems Constitutional: malaise, weakness EENTM: no symptoms reported Respiratory: no symptoms reported Cardiovascular: no symptoms reported Gastrointestinal: see HPI Genitourinary: no symptoms reported Musculoskeletal: no symptoms reported Skin: no symptoms reported Psychiatric/Neurological: No Symptoms Reported Physical Exam Vital Signs Vital Signs - First Documented 01/18/18 01/18/18 03:18 07:26 Temp 99.2 Pulse 104 Resp 17 B/P (MAP) 122/73 (89) Pulse Ox 100 O2 Delivery Room Air Capillary Refill : Less Than 3 Seconds Height, Weight, BMI Height: 5'3.00" Weight: 140lbs. 0.0oz. [id number]; 24.8 BMI Method:Stated General Appearance: No Apparent Distress HEENT: Normal ENT Inspection Neck: Normal Inspection Respiratory: Lungs Clear Cardiovascular: Tachycardia Gastrointestinal: Tenderness Extremity: Normal Inspection Neurologic/Psychiatric: Alert, Oriented x3 Skin: Warm/Dry Comments severe tenderness over the right lower quadrant. Abdomen slightly distended. Assessment/Plan Assessment and Plan lady with features of advanced appendicitis. No localized abscess and therefore operative intervention would be reasonable. Offered laparoscopic appendectomy, highlighting increased complications of wound infection, delayed intra-abdominal abscess etc. Potential for additional surgery, should a different pathology be discovered discussed in detail. Seems to be in agreement to proceed. Admission Diagnosis Admission Status: Observation Clinical Quality Measures DVT/VTE Risk/Contraindication: Risk Factor Score Per Nursin RFS Level Per Nursing on Admit: 2=Moderate CHRISTIN FITZGERALD MD Jan 18, 2018 09:21
--- NOTE | 2018-01-18 09:22 | Progress Note-Pre Operative ---
Pre-Operative Progress Note H&P Reviewed The H&P was reviewed, patient examined and no changes noted. Date Seen by Provider: Jan 18, 2018 Time Seen by Provider: 07:55 Date H&P Reviewed: Jan 18, 2018 Time H&P Reviewed: 09:21 Pre-Operative Diagnosis: acute appendicitis CHRISTIN FITZGERALD MD Jan 18, 2018 09:21
[2018-01-18] MEDS ORDERED: METO-333 PO (09:57)
[2018-01-18] MEDS ORDERED: MULT-35 PO (09:57)
[2018-01-18] MEDS ORDERED: ALPR0.5T7 PO (09:57)
[2018-01-18] MEDS ORDERED: ETHI1TAB16 PO (09:57)
[2018-01-18] MEDS ORDERED: ONDA4TAB11 PO (09:57)
[2018-01-18] MEDS ORDERED: SERT100T8 PO (09:57)
[2018-01-18] MEDS ORDERED: LEVO137T2 PO (09:57)
[2018-01-18] MEDS ORDERED: AMIT10TA6 PO (09:57)
[2018-01-18] MEDS ORDERED: BUP/EPI 0.5% 1:200,000 (SENSORCAINE) 30 ML VIAL ONE (10:25)
[2018-01-18] MEDS ORDERED: ROCURONIUM 10 MG/ML 5 ML SYRINGE IV ONE (10:49)
[2018-01-18] MEDS ORDERED: MIDAZOLAM 2 MG/2 ML (VERSED) VIAL ONE (10:49)
[2018-01-18] MEDS ORDERED: LIDOCAINE PF 2% 2 ML (XYLOCAINE) VIAL ONE ×2 (10:49→10:51)
[2018-01-18] MEDS ORDERED: proPOfol 200 MG/20 ML (DIPRIVAN) VIAL IV ONE (10:49)
[2018-01-18] MEDS ORDERED: SEVOFLURANE (ULTANE) 15 ML INHAL SOLN ONE (10:49)
[2018-01-18] MEDS ORDERED: ONDANSETRON 4 MG/2 ML (SDV) Z0FRAN ONE (10:49)
[2018-01-18] MEDS ORDERED: DEXAMETHASONE 10 MG/ML (DECADRON) 1 ML VIAL ONE (10:49)
[2018-01-18] MEDS ORDERED: fentaNYL INJECTION 100 MCG/2 ML AMP ONE ×2 (10:49→13:31)
[2018-01-18] MEDS ORDERED: SUCCINYLCHOLINE INJ 100 MG/5 ML SYR ONE (11:46)
[2018-01-18] MEDS ORDERED: metroNIDAZOLE 500MG/100ML IVPB 100 ML IV ONE (12:00)
[2018-01-18] MEDS ORDERED: ceFAZolin INJECTION 1,000 MG in NS (IVPB) 50 ML IV ONE (12:00)
[2018-01-18] MEDS ORDERED: CATHETER FLUSH 10 ML SYR IV PRN (12:45)
[2018-01-18] MEDS ORDERED: PHENYLEPHRINE 100 MCG/ML 10 ML (ANESTHESIA) SYR ONE (13:05)
[2018-01-18] MEDS ORDERED: LACTATED RINGERS 1,000 ML IV PRN (13:13)
[2018-01-18] MEDS ORDERED: GLYCOPYRROLATE 0.2 MG/ML (ROBINUL) 2 ML VIAL ONE (13:28)
[2018-01-18] MEDS ORDERED: NEOSTIGMINE 1 MG/ML 5 ML SYRINGE ONE (13:28)
[2018-01-18] MEDS ORDERED: KETOROLAC 30 MG/ML VIAL ONE (13:32)
[2018-01-18] MEDS ORDERED: MEPERIDINE (DEMEROL) INJ 50 MG/ML IVP ONE (14:00)
[2018-01-18] MEDS ORDERED: fentaNYL INJECTION 100 MCG/2 ML AMP IVP ONE (14:00)
[2018-01-18] MEDS ORDERED: HYDROmorphone 2 MG/ML VIAL (DILAUDID) IV ONE (14:00)
--- NOTE | 2018-01-18 14:02 | Operative Report ---
Operative Report Date of Procedure/Surgery Jan 18, 2018 Surgeon (s) CHRISTIN FITZGERALD MD Information Technology Manager (s): N/A Post-Operative Diagnosis same with the appendix being in a pelvic position Procedure Performed laparoscopic appendectomy Description of Procedure Anesthesia Type: General Estimated blood loss (mL): minimal Specimen(s) collected/removed appendix Description of the Procedure Indication for the procedure: This lady presented with acute appendicitis with the potential for perforation and small bowel ileus. In the absence of a well defined abscess, it was felt reasonable to proceed with appendectomy. Informed consent was obtained after reviewing the operative details and complications of wound infection, intra-abdominal abscess and the risk of small bowel obstruction. Description of the procedure: She was placed supine on the operative table and general anesthesia induced. A gram of Ancef and 500 mg of Flagyl were administered intravenously as prophylaxis against wound infection. Sequential compression devices were placed around her legs, to minimize the risk of venous thrombosis. Abdomen was prepared and draped in the usual sterile manner. A supraumbilical incision was made and the linea alba incised vertically. A Phillips cannula was placed and carbon dioxide insufflated, to an intra-abdominal pressure of 15 mmHg. Anatomy was visualized using a 30 laparoscope. Omentum was wrapped around the ileocecal junction and the pelvis, obscuring the view of the appendix itself. Under direct view, I placed a 5 mm trocar over the right upper quadrant, followed by a 12 mm trocar over the left lower quadrant. The patient was then turned into steep Trendelenburg position, with the right side tilted up. Omentum was displaced out of the way revealing a cavity along the right pelvic wall containing an engorged appendix with fibrinous exudates on the surface. There was no basil perforation. By blunt dissection, appendix was retrieved from the pelvis and the mesoappendix controlled using Harmonic scalpel. The base of the appendix was then transected using an Endo SHILA, 2.5 mm stapler. Hemostasis along the staple line was satisfactory. Pelvis and the rest of the abdominal cavity where irrigated with 2 L of warm saline. Omentum was then placed over the right lower quadrant the operation concluded. Appendix was placed in an Endo Catch bag and removed via the supraumbilical trocar site. The fascia over this incision was closed using #1 Vicryl and skin using 4-0 Vicryl, in a tubular fashion. 0.5 percent Marcaine with epinephrine was infiltrated along the incisions, both preemptively and at the conclusion of the operation. She tolerated the procedure well, was extubated in the operating room and taken to recovery room in a stable condition. Findings of the Procedure see op report Allergies and Home Medications Allergies Coded Allergies: No Known Drug Allergies (Unverified , 01/18/18) Home Medications Alprazolam 0.5 Mg Tablet, 0.5 MG PO BID PRN for ANXIETY, (Reported) Amitriptyline HCl 10 Mg Tablet, 10 MG PO DAILY PRN for PAIN-MODERATE, (Reported) Ethinyl Estradiol/Drospirenone 1 Each Tablet, 1 TAB PO HS, (Reported) Levothyroxine Sodium 137 Mcg Tablet, 137 MCG PO DAILY, (Reported) Metoprolol Tartrate 25 Mg Tablet, 50 MG PO DAILY, (Reported) TAKES 2 (25MG) TABLETS Multivitamin 1 Each Tablet, 1 TAB PO DAILY, (Reported) Ondansetron 4 Mg Tab.rapdis, 4 MG PO Q8H PRN for NAUSEA/VOMITING-1ST LINE, ( Reported) Sertraline HCl 100 Mg Tablet, 150 MG PO DAILY, (Reported) TAKES 1 & 1/2 (100MG) TABLET Patient Home Medication List Home Medication List Reviewed: Yes CHRISTIN FITZGERALD MD Jan 18, 2018 14:02
[2018-01-18] MEDS ORDERED: ACHD5005 PO (14:15)
[2018-01-18] MEDS ORDERED: ONDANSETRON 4 MG/2 ML (SDV) Z0FRAN IV PRN (14:15)
[2018-01-18] MEDS ORDERED: fentaNYL INJECTION 100 MCG/2 ML AMP IV PRN (14:15)
[2018-01-18] MEDS ORDERED: ALPRAZolam 0.5 MG (XANAX) TAB PO PRN (14:15)
--- NOTE | 2018-01-18 14:17 | Discharge Inst-Simple/Standard ---
Discharge Inst-Standard Discharge Medications New, Converted or Re-Newed RX: RX on Chart Patient Instructions/Follow Up Plan of Care/Instructions/FU: Band aids off in am. F/U in 1 week Activity as Tolerated: Yes Discharge Diet: No Restrictions CHRISTIN FITZGERALD MD Jan 18, 2018 14:17
[2018-01-18] MEDS: meTOprolol TARTRATE 50 MG (LOPRESSOR) TAB PO SCH (15:18)
[2018-01-18] MEDS: LEVOTHYROXINE 25 MCG (LEVOTHROID) TAB PO SCH (15:19)
[2018-01-18 16:30] VITALS: BP 101/58
[2018-01-18] MEDS: metroNIDAZOLE 500MG/100ML IVPB 100 ML IV SCH (18:13)
[2018-01-18] MEDS: HYDROcodone/APAP 5 MG/325 MG (LORTAB) TAB PO PRN (18:14)
[2018-01-18] MEDS: LEVOTHYROXINE 112 MCG (LEVOTHROID) TAB PO SCH (18:58)
[2018-01-18] MEDS: ceFAZolin INJECTION 1,000 MG in NS (IVPB) 100 ML IV SCH (18:58)
[2018-01-18 20:10] VITALS: BP 101/55
[2018-01-18] MEDS ORDERED: ETHINYL ESTRADIOL PO SCH (21:00)
[2018-01-18] MEDS ORDERED: DROSPIRENONE PO SCH (21:00)
[2018-01-18] MEDS ORDERED: [UNRECOGNIZED DRUG - OTHER] PO SCH (21:00)
[2018-01-19] VITALS: BP 99/62
[2018-01-19] MEDS: ceFAZolin INJECTION 1,000 MG in NS (IVPB) 100 ML IV SCH ×2 (00:47→09:19)
[2018-01-19] MEDS: HYDROcodone/APAP 5 MG/325 MG (LORTAB) TAB PO PRN (00:47)
[2018-01-19] MEDS: NS W/KCL 40 MEQ/L 1,000 ML IV SCH ×2 (00:51→09:14)
[2018-01-19] MEDS: LACTATED RINGERS 1,000 ML IV SCH ×3 (00:51→06:40)
[2018-01-19] MEDS: metroNIDAZOLE 500MG/100ML IVPB 100 ML IV SCH ×2 (01:36→09:16)
[2018-01-19 04:03] VITALS: BP 98/54
[2018-01-19] MEDS ORDERED: KETOROLAC 15 MG/ML VIAL IV SCH (06:00)
[2018-01-19 06:04] LABS: BUN/CREATININE RATIO 8; CALCIUM 8.5 MG/DL (8.5-10.1); CARBON DIOXIDE 18 MMOL/L (21-32); CHLORIDE 108 MMOL/L (98-107); CREATININE SERUM 0.61 MG/DL (0.60-1.30); GFR ESTIMATED > 60; GLUCOSE 123 MG/DL (70-105); POTASSIUM 4.2 MMOL/L (3.6-5.0); SODIUM 135 MMOL/L (135-145)
[2018-01-19] MEDS ORDERED: LEVOTHYROXINE 25 MCG (LEVOTHROID) TAB PO SCH (06:30)
[2018-01-19] MEDS ORDERED: LEVOTHYROXINE 112 MCG (LEVOTHROID) TAB PO SCH (06:30)
[2018-01-19] MEDS: LEVOTHYROXINE 112 MCG (LEVOTHROID) TAB PO SCH (06:40)
[2018-01-19] MEDS: LEVOTHYROXINE 25 MCG (LEVOTHROID) TAB PO SCH (06:40)
[2018-01-19] MEDS ORDERED: MULTIVIT W/MINERALS TAB (THERAGRAN M) PO SCH (07:00)
--- NOTE | 2018-01-19 07:06 | Anesthesia-General Post-Op ---
General Patient Condition Mental Status/LOC: Same as Preop Cardiovascular: Satisfactory Nausea/Vomiting: Absent Respiratory: Satisfactory Pain: Controlled Complications: Absent Post Op Complications Complications None Follow Up Care/Instructions Patient Instructions None needed. Anesthesia/Patient Condition Patient Condition Patient is doing well, no complaints, stable vital signs, no apparent adverse anesthesia problems. No complications reported per nursing. KASI SANDOVAL CRNA Jan 19, 2018 07:06
[2018-01-19 08:00] VITALS: BP 115/72
[2018-01-19] MEDS ORDERED: meTOprolol TARTRATE 50 MG (LOPRESSOR) TAB PO SCH (09:00)
[2018-01-19] MEDS ORDERED: NON-FORMULARY MEDICATION 1 EA EA (Multivitamin (Daily Multiple Vitamin) 1 TAB) PO SCH (09:00)
[2018-01-19] MEDS ORDERED: SERTRALINE 100 MG (ZOLOFT) TAB PO SCH (09:00)
[2018-01-19] MEDS: meTOprolol TARTRATE 50 MG (LOPRESSOR) TAB PO SCH (09:14)
--- NOTE | 2018-01-19 10:22 | Progress Note-Standard ---
Standard Progress Note Progress Notes/Assess & Plan Date Seen by Provider: Jan 19, 2018 Time Seen by Provider: 08:20 Progress/Assessment & Plan doing well. Incisions dry. Tolerating diet. Afebrile. Discharge home. Final Diagnosis acute appendicitis CHRISTIN FITZGERALD MD Jan 19, 2018 10:22
== END 2018-01-19 10:30 | disposition home or self-care (01) | DRG 343 ==
LOC: ER 03:05 → 4TH 07:10
PROVIDERS: ADMIT Surgery; ATTEND Surgery
PROC: 0DTJ4ZZ Resection of Appendix, Percutaneous Endoscopic Approach (ICD-10-PCS; principal; 2018-01-18 12:38)
DX: K35.80 Unspecified acute appendicitis (principal); E87.6 Hypokalemia; E89.0 Postprocedural hypothyroidism; I10 Essential (primary) hypertension; G43.909 Migraine, unspecified, not intractable, without status migrainosus; F31.9 Bipolar disorder, unspecified
CPT/HCPCS: 36415; 74177; 80048; 80053; 81000; 83690; 83735; 84439; 84443; 84703; 85007; 85027; 86141; 87081; 88304; 94664; 96361; 96365; 96375